=== PATIENT | female | born 1970 ===

== ENCOUNTER → 2020-05-19 13:26 | Outpatient (BNVA) | payer MEDICARE, MEDICAID, SELFPAY | PROVIDERS: PCP Family Medicine; Visit Provider Student in an Organized Health Care Education/Training Program | DX: M13.80 Other specified arthritis, unspecified site (principal); Z79.899 Other long term (current) drug therapy | CPT/HCPCS: Q3014 ==

== ENCOUNTER → 2020-08-30 13:04 | Outpatient (BNVA) | payer MEDICARE, MEDICAID, SELFPAY | PROVIDERS: PCP Family Medicine; Visit Provider Student in an Organized Health Care Education/Training Program | DX: M13.80 Other specified arthritis, unspecified site (principal); S61.259A Open bite of unspecified finger without damage to nail, initial encounter; W55.01XA Bitten by cat, initial encounter; Z79.899 Other long term (current) drug therapy | CPT/HCPCS: 99212 ==

== ENCOUNTER → 2020-10-18 10:16 | Outpatient (REF) | payer MEDICARE, MEDICAID, SELFPAY ==
--- NOTE | ~2020-10-18 | NM_ITS ---
Myocardial perfusion study Indication: Shortness of breath evaluate for myocardial ischemia Technique: The patient was brought in for a Lexiscan perfusion study on 10/18/2020. Patient performed low-level exercise and was injected 0.4 mg of Lexiscan intravenously. Within a minute of injection, 30 mCi of sestamibi was given intravenously. Images were obtained using the SPECT gamma camera interlaced with the gating device. Images were obtained in supine position. Resting perfusion study was performed on 10/24/2020. Patient was administered 30 mCi of sestamibi intravenously at rest. Images were then obtained in supine position. Images obtained with and without CT attenuation. Total DLP 122 mGy-cm. Images were processed with the software and compared side to side in short axis, horizontal long axis and vertical long axis views. Findings: The stress perfusion study showed both attenuated and not attenuated corrected images show normal uptake of radiotracer in all segments of LV myocardium. There is suggestion of left ventricle hypertrophy. The gated study shows normal LV systolic function with calculated LVEF of 60%. LV cavity is normal in size. The gated study shows normal systolic wall thickening and contraction of segments. Resting study shows no change in perfusion pattern compared to stress perfusion study. Gating at rest reveals normal systolic wall motion with ejection fraction at 70%. The findings are consistent with normal myocardial perfusion. NM/NM christy perf SPECT rest & str Impression: 1. Myocardial perfusion imaging study shows normal myocardial perfusion 2. Gated LVEF is 60% 3. Transient ischemic dilatation not present EKG is nondiagnostic for ischemia
--- NOTE | 2020-10-18 10:22 | CA_ITS ---
Acquisition Time: 2020-10-18 10:25:39 Total Exercise Time: 00:02:00 Test Indications: SHORTNESS OF BREATH Medications: Protocol: LEXISCAN Max HR: 116 BPM 69% of Pred: 168 BPM Max BP: 116/068 mmHG Max Work Load: 1.0 METS Pharmacological stress test using Lexiscan while sitting and kicking her feet. Pt tolerated well, denies any anginal sx. EKG with no arrhytyhmias, non-diagnostic for ischemia. Nuclear images to follow. Normotensive response to test. Test reviewed with Dr. Lindsey. Referred By: Dejuan Bernabe Overread By: Nina Louie NP
== END ==
LOC: HO.CARD 10:16
PROVIDERS: Visit Provider Internal Medicine Cardiovascular Disease
DX: R06.02 Shortness of breath (principal)
CPT/HCPCS: 78452; 93016; 93017; 93018; A9500; J0280; J2785

== ENCOUNTER 2020-10-24 10:59 | Outpatient (REF) | payer MEDICARE, MEDICAID, SELFPAY ==
[2020-10-24 12:12] LABS: MANUAL DIFF FLAG NO
[2020-10-24 12:23] LABS: Basophils Absolute Auto 0.1 X10*3/uL (0.0-0.2); Basophils Percent Auto 0.7 % (0-2); Eosinophils Absolute Auto 0.1 X10*3/uL (0.0-0.4); Eosinophils Percent Auto 1.2 % (0-4); Hematocrit 35.7 % (37-47); Hemoglobin 11.4 g/dl (12.0-16.0); Imm Gran Abs Auto 0.05 X10*3/uL (0.00-0.03); Imm Gran Pct Auto 0.5 % (0.0-0.4); Lymphocytes Absolute Auto 3.9 X10*3/uL (1.2-4.9); Lymphocytes Percent Auto 39.9 % (20-40); Mean Corpuscular HGB Conc 31.9 g/dl (31.0-35.0); Mean Corpuscular Hemoglobin 28.9 pg (27.0-33.0); Mean Corpuscular Volume 90.6 fL (80-98); Mean Platelet Volume 10.4 fL (9.4-12.3); Monocytes Absolute Auto 0.5 X10*3/uL (0.1-1.2); Monocytes Percent Auto 4.7 % (2-11); Neutrophils Absolute Auto 5.2 X10*3/uL (2.0-8.3); Platelet Count 315 X10*3/uL (160-400); Red Blood Count 3.94 X10*6/uL (4.20-5.50); Red Cell Distribution Width 16.6 % (11.0-16.0); White Blood Count 9.8 X10*3/uL (4.8-10.8)
[2020-10-24 12:44] LABS: Alanine Aminotransferase 14 U/L (0-31); Albumin Level 3.8 g/dL (3.5-5.0); Alkaline Phosphatase 180 U/L (39-117); Anion Gap 16 (12-20); Aspartate Amino Transferase 15 U/L (5-31); Bilirubin Total 0.5 mg/dL (0.0-1.0); Blood Urea Nitrogen 8 mg/dL (9-16); C Reactive Protein 2.75 mg/dL (< or = 0.50); Calcium 9.4 mg/dL (8.4-10.2); Carbon Dioxide 25 mmol/L (22-29); Chloride 103 mmol/L (96-108); Cholesterol 110 mg/dL; Estimated Glomerular Filt Rate > 60; Glucose Random 149 mg/dL (60-115); HDL Cholesterol 37 mg/dL; LDL Cholesterol Calculated 50 mg/dl; Potassium 4.6 mmol/L (3.3-5.1); Sodium 139 mmol/L (135-145); Total Protein 6.5 g/dL (6.5-8.0); Triglycerides 117 mg/dL
[2020-10-24 13:05] LABS: Reflex LDLD? No
[2020-10-24 13:38] LABS: Erythrocyte Sedimentation Rate 50 MM/HR (0-20)
== END 2020-10-24 11:00 | disposition home or self-care (01) ==
LOC: HO.LAB 10:59
PROVIDERS: PCP Family Medicine; Visit Provider Student in an Organized Health Care Education/Training Program
DX: M13.80 Other specified arthritis, unspecified site (principal)
CPT/HCPCS: 36415; 80053; 80061; 85025; 85652; 86140

== ENCOUNTER → 2020-11-01 12:45 | Outpatient (BNVA) | payer MEDICARE, MEDICAID, SELFPAY | PROVIDERS: PCP Family Medicine; Visit Provider Student in an Organized Health Care Education/Training Program | DX: M13.80 Other specified arthritis, unspecified site (principal); Z79.899 Other long term (current) drug therapy; Z87.891 Personal history of nicotine dependence | CPT/HCPCS: 99212 ==

== ENCOUNTER 2021-02-03 10:37 | Outpatient (REF) | payer MEDICARE, MEDICAID, SELFPAY ==
[2021-02-03 11:33] LABS: MANUAL DIFF FLAG NO
[2021-02-03 11:39] LABS: Basophils Absolute Auto 0.1 X10*3/uL (0.0-0.2); Basophils Percent Auto 0.5 % (0-2); Eosinophils Absolute Auto 0.1 X10*3/uL (0.0-0.4); Eosinophils Percent Auto 1.5 % (0-4); Hematocrit 38.6 % (37-47); Hemoglobin 12.4 g/dl (12.0-16.0); Imm Gran Abs Auto 0.04 X10*3/uL (0.00-0.03); Imm Gran Pct Auto 0.4 % (0.0-0.4); Lymphocytes Absolute Auto 4.1 X10*3/uL (1.2-4.9); Lymphocytes Percent Auto 43.7 % (20-40); Mean Corpuscular HGB Conc 32.1 g/dl (31.0-35.0); Mean Corpuscular Hemoglobin 28.1 pg (27.0-33.0); Mean Corpuscular Volume 87.5 fL (80-98); Mean Platelet Volume 10.6 fL (9.4-12.3); Monocytes Absolute Auto 0.5 X10*3/uL (0.1-1.2); Monocytes Percent Auto 5.8 % (2-11); Neutrophils Absolute Auto 4.5 X10*3/uL (2.0-8.3); Neutrophils Percent Auto 48.1 % (45-73); Platelet Count 204 X10*3/uL (160-400); Red Blood Count 4.41 X10*6/uL (4.20-5.50); Red Cell Distribution Width 16.8 % (11.0-16.0); White Blood Count 9.4 X10*3/uL (4.8-10.8)
[2021-02-03 11:55] LABS: Alanine Aminotransferase 16 U/L (0-31); Albumin Level 3.8 g/dL (3.5-5.0); Alkaline Phosphatase 156 U/L (39-117); Anion Gap 14 (12-20); Aspartate Amino Transferase 16 U/L (5-31); Bilirubin Total 0.4 mg/dL (0.0-1.0); Blood Urea Nitrogen 6 mg/dL (9-16); C Reactive Protein 0.17 mg/dL (< or = 0.50); Calcium 9.4 mg/dL (8.4-10.2); Carbon Dioxide 25 mmol/L (22-29); Chloride 105 mmol/L (96-108); Estimated Glomerular Filt Rate > 60; Glucose Random 240 mg/dL (60-115); Potassium 4.5 mmol/L (3.3-5.1); Sodium 139 mmol/L (135-145); Total Protein 6.2 g/dL (6.5-8.0)
[2021-02-03 12:19] LABS: Erythrocyte Sedimentation Rate 2 MM/HR (0-20)
== END 2021-02-03 10:38 | disposition home or self-care (01) ==
LOC: HO.LAB 10:37
PROVIDERS: PCP Family Medicine; Visit Provider Student in an Organized Health Care Education/Training Program
DX: M13.80 Other specified arthritis, unspecified site (principal)
CPT/HCPCS: 36415; 80053; 85025; 85652; 86140

== ENCOUNTER → 2021-05-01 09:59 | Outpatient (BNVA) | payer MEDICARE, MEDICAID, SELFPAY | PROVIDERS: PCP Family Medicine; Visit Provider Nurse Practitioner Family | DX: M13.80 Other specified arthritis, unspecified site (principal); M54.50 Low back pain, unspecified; Z79.899 Other long term (current) drug therapy | CPT/HCPCS: 99212 ==

== ENCOUNTER 2021-05-12 10:04 | Outpatient (REF) | payer MEDICARE, MEDICAID, SELFPAY ==
--- NOTE | ~2021-05-12 | MM_ITS ---
EXAMINATION: MM SCREENING DIGITAL BREAST TOMOSYNTHESIS, BILATERAL CLINICAL INFORMATION: Screening. Asymptomatic. The lifetime risk of breast cancer based on the Tyrer-Cuzick Model is 3%. COMPARISON: Mammography: 05/06/2018, 11/08/2016 TECHNIQUE: Digital breast tomosynthesis is performed in both the craniocaudal and mediolateral oblique views along with computer-aided detection (CAD). Synthesized 2D images are generated from the tomosynthesis. Additional bilateral MLO views are provided. FINDINGS: The breasts are almost entirely fatty (ACR BI-RADS breast composition Category a). There are no significant masses, abnormal calcifications, or other abnormalities. Small intramammary node again seen anterior 9:00 right breast as incidental finding. The axilla and skin contours are unremarkable. MM/MM tomosynthesis screening BI IMPRESSION: No mammographic evidence of malignancy. ASSESSMENT: BI-RADS 2: Benign RECOMMENDATION: Routine annual mammography screening. This patient's information was entered into a reminder system with a target due date for their next mammogram.
== END 2021-05-12 10:05 | disposition home or self-care (01) ==
LOC: HO.MAMMO 10:04
PROVIDERS: Visit Provider Internal Medicine
DX: Z12.31 Encounter for screening mammogram for malignant neoplasm of breast (principal)
CPT/HCPCS: 77063; 77067

== ENCOUNTER 2021-09-04 08:23 | Outpatient (REF) | payer MEDICARE, MEDICAID, SELFPAY ==
[2021-09-04 08:45] LABS: MANUAL DIFF FLAG NO
[2021-09-04 09:07] LABS: Basophils Absolute Auto 0.1 X10*3/uL (0.0-0.2); Basophils Percent Auto 0.5 % (0-2); Eosinophils Absolute Auto 0.2 X10*3/uL (0.0-0.4); Eosinophils Percent Auto 1.8 % (0-4); Imm Gran Abs Auto 0.04 X10*3/uL (0.00-0.03); Imm Gran Pct Auto 0.4 % (0.0-0.4); Lymphocytes Absolute Auto 4.1 X10*3/uL (1.2-4.9); Lymphocytes Percent Auto 40.4 % (20-40); Mean Corpuscular HGB Conc 32.4 g/dl (31.0-35.0); Mean Corpuscular Volume 83.5 fL (80.0-98.0); Mean Platelet Volume 9.2 fL (9.4-12.3); Monocytes Absolute Auto 0.3 X10*3/uL (0.1-1.2); Monocytes Percent Auto 2.5 % (2-11); Neutrophils Absolute Auto 5.5 x10*3/uL (2.0-8.3); Neutrophils Percent Auto 54.4 % (45-73); Platelet Count 409 X10*3/uL (160-400); Red Blood Count 4.07 X10*6/uL (4.20-5.50); Red Cell Distribution Width 17.7 % (11.0-16.0); White Blood Count 10.1 X10*3/uL (4.8-10.8)
[2021-09-04 09:31] LABS: Alanine Aminotransferase 14 U/L (0-31); Albumin Level 3.5 g/dL (3.5-5.0); Alkaline Phosphatase 170 U/L (39-117); Anion Gap 12 (12-20); Aspartate Amino Transferase 13 U/L (5-31); Bilirubin Total 0.3 mg/dL (0.0-1.0); Blood Urea Nitrogen 10 mg/dL (9-16); C Reactive Protein 7.36 mg/dL (< or = 0.50); Calcium 9.7 mg/dL (8.4-10.2); Carbon Dioxide 26 mmol/L (22-29); Chloride 103 mmol/L (96-108); Cholesterol 101 mg/dL; Estimated Glomerular Filt Rate > 60; Glucose Random 141 mg/dL (60-115); HDL Cholesterol 31 mg/dL; LDL Cholesterol Calculated 50 mg/dl; Potassium 4.4 mmol/L (3.3-5.1); Sodium 137 mmol/L (135-145); Total Protein 6.4 g/dL (6.5-8.0); Triglycerides 100 mg/dL
[2021-09-04 10:11] LABS: Erythrocyte Sedimentation Rate 70 MM/HR (0-20)
[2021-09-04 10:59] LABS: Reflex LDLD? No
== END 2021-09-04 08:24 | disposition home or self-care (01) ==
LOC: HO.LAB 08:23
PROVIDERS: PCP Family Medicine; Visit Provider Nurse Practitioner Family
DX: M13.80 Other specified arthritis, unspecified site (principal)
CPT/HCPCS: 36415; 80053; 80061; 85025; 85652; 86140

== ENCOUNTER 2021-09-06 08:36 | Outpatient (REF) | payer MEDICARE, MEDICAID, SELFPAY ==
[2021-09-06 08:51] LABS: MANUAL DIFF FLAG NO
[2021-09-06 09:13] LABS: Basophils Absolute Auto 0.1 X10*3/uL (0.0-0.2); Basophils Percent Auto 0.6 % (0-2); Eosinophils Absolute Auto 0.1 X10*3/uL (0.0-0.4); Eosinophils Percent Auto 1.2 % (0-4); Hematocrit 34.8 % (37.0-47.0); Hemoglobin 11.1 g/dl (12.0-16.0); Imm Gran Abs Auto 0.06 X10*3/uL (0.00-0.03); Imm Gran Pct Auto 0.6 % (0.0-0.4); Lymphocytes Absolute Auto 3.9 X10*3/uL (1.2-4.9); Lymphocytes Percent Auto 39.4 % (20-40); Mean Corpuscular HGB Conc 31.9 g/dl (31.0-35.0); Mean Corpuscular Hemoglobin 27.1 pg (27.0-33.0); Mean Corpuscular Volume 84.9 fL (80.0-98.0); Mean Platelet Volume 9.3 fL (9.4-12.3); Monocytes Absolute Auto 0.4 X10*3/uL (0.1-1.2); Monocytes Percent Auto 4.2 % (2-11); Neutrophils Absolute Auto 5.4 x10*3/uL (2.0-8.3); Platelet Count 385 X10*3/uL (160-400); Red Cell Distribution Width 18.4 % (11.0-16.0)
[2021-09-06 09:41] LABS: Alanine Aminotransferase 14 U/L (0-31); Albumin Level 3.7 g/dL (3.5-5.0); Alkaline Phosphatase 164 U/L (39-117); Anion Gap 15 (12-20); Aspartate Amino Transferase 10 U/L (5-31); Bilirubin Total 0.4 mg/dL (0.0-1.0); Blood Urea Nitrogen 9 mg/dL (9-16); C Reactive Protein 7.66 mg/dL (< or = 0.50); Calcium 9.9 mg/dL (8.4-10.2); Carbon Dioxide 24 mmol/L (22-29); Chloride 102 mmol/L (96-108); Cholesterol 111 mg/dL; Estimated Glomerular Filt Rate > 60; Glucose Random 249 mg/dL (60-115); HDL Cholesterol 33 mg/dL; LDL Cholesterol Calculated 55 mg/dl; Potassium 4.4 mmol/L (3.3-5.1); Sodium 137 mmol/L (135-145); Total Protein 6.7 g/dL (6.5-8.0); Triglycerides 116 mg/dL
[2021-09-06 09:50] LABS: Erythrocyte Sedimentation Rate 67 MM/HR (0-20)
[2021-09-06 10:35] LABS: Reflex LDLD? No
== END 2021-09-06 08:37 | disposition home or self-care (01) ==
LOC: HO.LAB 08:36
PROVIDERS: PCP Family Medicine; Visit Provider Nurse Practitioner Family
DX: M13.80 Other specified arthritis, unspecified site (principal); M54.50 Low back pain, unspecified; M25.562 Pain in left knee; R05.9 Cough, unspecified; Z79.899 Other long term (current) drug therapy
CPT/HCPCS: 36415; 80053; 80061; 85025; 85652; 86140; 99212

== ENCOUNTER 2021-09-21 09:17 | Outpatient (REF) | payer MEDICARE, MEDICAID, SELFPAY ==
--- NOTE | ~2021-09-21 | XR_ITS ---
EXAMINATION: XR KNEE, LEFT CLINICAL INFORMATION: Pain COMPARISON: Previous x-ray August 2016 TECHNIQUE: Four views of the left knee. FINDINGS: Bone alignment is normal. No fracture or dislocation is seen. The femoral tibial joints are normal. There are small osteophytes at the patellofemoral joint. There are osteophytes at the quadriceps tendon insertion and patellar tendon origins. There is no joint effusion. XR/XR knee LT 3V IMPRESSION: Mild degenerative changes.
--- NOTE | ~2021-09-21 | XR_ITS ---
EXAMINATION: XR CHEST CLINICAL INFORMATION: Chest 03/04/2018 COMPARISON: None TECHNIQUE: 2 views of the chest were obtained. FINDINGS: The lungs are well-expanded with increased bilateral parahilar markings with mild bronchial wall thickening. Heart size and pulmonary vascularity is normal. No gross bony abnormality seen. XR/XR chest 2V IMPRESSION: Increased bronchovascular markings with mild bronchial wall thickening suggestive of small airway disease. No acute pneumonic consolidation seen.
[2021-09-21 09:30] LABS: MANUAL DIFF FLAG NO
[2021-09-21 09:53] LABS: Basophils Absolute Auto 0.1 X10*3/uL (0.0-0.2); Basophils Percent Auto 0.4 % (0-2); Eosinophils Absolute Auto 0.2 X10*3/uL (0.0-0.4); Eosinophils Percent Auto 1.2 % (0-4); Hematocrit 35.1 % (37.0-47.0); Imm Gran Abs Auto 0.06 X10*3/uL (0.00-0.03); Imm Gran Pct Auto 0.5 % (0.0-0.4); Lymphocytes Absolute Auto 3.4 X10*3/uL (1.2-4.9); Lymphocytes Percent Auto 27.3 % (20-40); Mean Corpuscular HGB Conc 31.3 g/dl (31.0-35.0); Mean Corpuscular Hemoglobin 26.1 pg (27.0-33.0); Mean Corpuscular Volume 83.4 fL (80.0-98.0); Monocytes Absolute Auto 0.5 X10*3/uL (0.1-1.2); Monocytes Percent Auto 4.2 % (2-11); Neutrophils Absolute Auto 8.1 x10*3/uL (2.0-8.3); Neutrophils Percent Auto 66.4 % (45-73); Platelet Count 502 X10*3/uL (160-400); Red Blood Count 4.21 X10*6/uL (4.20-5.50); Red Cell Distribution Width 17.5 % (11.0-16.0); White Blood Count 12.3 X10*3/uL (4.8-10.8)
[2021-09-21 10:06] LABS: Appearance Urine CLEAR; Color Urine YELLOW; Glucose Urine UA NEG (NEG); Leukocyte Esterase Urine NEG (NEG); Nitrite Urine NEG (NEG); Urine Blood NEG (NEG); Urine Ketones NEG (NEG); Urine Protein NEG (NEG-TRACE)
[2021-09-21 10:31] LABS: Alanine Aminotransferase 9 U/L (0-31); Albumin Level 3.5 g/dL (3.5-5.0); Alkaline Phosphatase 162 U/L (39-117); Anion Gap 15 (12-20); Aspartate Amino Transferase 12 U/L (5-31); Blood Urea Nitrogen 7 mg/dL (9-16); C Reactive Protein 7.67 mg/dL (< or = 0.50); Calcium 9.7 mg/dL (8.4-10.2); Carbon Dioxide 24 mmol/L (22-29); Chloride 104 mmol/L (96-108); Estimated Glomerular Filt Rate > 60; Glucose Random 158 mg/dL (60-115); Potassium 4.2 mmol/L (3.3-5.1); Sodium 139 mmol/L (135-145); Total Protein 6.7 g/dL (6.5-8.0)
[2021-09-21 10:38] LABS: Bilirubin Total 0.3 mg/dL (0.0-1.0)
[2021-09-26 15:36] LABS: Alkaline Phosphatase Bone 25.6 mcg/L (5.6-29.0)
== END 2021-09-21 09:18 | disposition home or self-care (01) ==
LOC: HO.LAB 09:17
PROVIDERS: PCP Family Medicine; Visit Provider Nurse Practitioner Family
DX: M13.80 Other specified arthritis, unspecified site (principal); R74.8 Abnormal levels of other serum enzymes; R05.9 Cough, unspecified; M25.562 Pain in left knee; R79.82 Elevated C-reactive protein (CRP)
CPT/HCPCS: 36415; 71046; 73562; 80053; 81003; 84075; 85025; 86140

== ENCOUNTER 2021-10-09 10:12 | Outpatient (REF) | payer MEDICARE, MEDICAID, SELFPAY ==
[2021-10-09 13:00] LABS: Alanine Aminotransferase 19 U/L (0-31); Albumin Level 3.8 g/dL (3.5-5.0); Alkaline Phosphatase 169 U/L (39-117); Anion Gap 18 (12-20); Aspartate Amino Transferase 9 U/L (5-31); Bilirubin Total 0.4 mg/dL (0.0-1.0); Blood Urea Nitrogen 11 mg/dL (9-16); Calcium 9.7 mg/dL (8.4-10.2); Carbon Dioxide 25 mmol/L (22-29); Chloride 94 mmol/L (96-108); Estimated Glomerular Filt Rate 58; Potassium 5.4 mmol/L (3.3-5.1); Sodium 132 mmol/L (135-145); Total Protein 6.9 g/dL (6.5-8.0)
[2021-10-09 13:10] LABS: Glucose Random 527 mg/dL (60-115)
[2021-10-09 13:16] LABS: Erythrocyte Sedimentation Rate 31 MM/HR (0-20)
== END 2021-10-09 10:13 | disposition home or self-care (01) ==
LOC: HO.LAB 10:12
PROVIDERS: PCP Family Medicine; Visit Provider Nurse Practitioner Family
DX: M13.80 Other specified arthritis, unspecified site (principal)
CPT/HCPCS: 36415; 80053; 82784; 83540; 83615; 85025; 85652; 86140; 86334

== ENCOUNTER → 2021-11-06 11:04 | Outpatient (BNVA) | payer MEDICARE, MEDICAID, SELFPAY | PROVIDERS: PCP Family Medicine; Visit Provider Nurse Practitioner Family | DX: M06.00 Rheumatoid arthritis without rheumatoid factor, unspecified site (principal); M54.50 Low back pain, unspecified; M25.562 Pain in left knee; Z79.899 Other long term (current) drug therapy | CPT/HCPCS: 99212 ==

== ENCOUNTER 2022-01-05 13:04 | Outpatient (REF) | payer MEDICARE, MEDICAID, SELFPAY ==
--- NOTE | ~2022-01-05 | XR_ITS ---
EXAMINATION: XR RIBS, RIGHT. Chest x-ray. CLINICAL INFORMATION: Pleurodynia COMPARISON: None TECHNIQUE: 3 views of the right ribs were obtained. Chest one view. FINDINGS: Chest: Lungs are clear. No consolidation, pneumothorax, or pleural effusion. The cardiomediastinal silhouette and pulmonary vasculature are normal. Osseous structures are unremarkable. There is no visible fracture involving the right ribs especially where marker has been placed along the right lower ribs. No fracture visualized. XR/XR ribs RT min 3V w CXR1V IMPRESSION: Unremarkable chest and right rib exam.
[2022-01-05 13:23] LABS: MANUAL DIFF FLAG NO
[2022-01-05 13:48] LABS: Basophils Percent Auto 0.2 % (0-2); Eosinophils Percent Auto 0.1 % (0-4); Hematocrit 36.2 % (37.0-47.0); Hemoglobin 11.4 g/dl (12.0-16.0); Imm Gran Abs Auto 0.12 X10*3/uL (0.00-0.03); Imm Gran Pct Auto 0.9 % (0.0-0.4); Lymphocytes Absolute Auto 2.2 X10*3/uL (1.2-4.9); Lymphocytes Percent Auto 16.2 % (20-40); Mean Corpuscular HGB Conc 31.5 g/dl (31.0-35.0); Mean Corpuscular Volume 85.6 fL (80.0-98.0); Mean Platelet Volume 10.3 fL (9.4-12.3); Monocytes Absolute Auto 0.1 X10*3/uL (0.1-1.2); Neutrophils Absolute Auto 11.2 x10*3/uL (2.0-8.3); Neutrophils Percent Auto 81.6 % (45-73); Platelet Count 294 X10*3/uL (160-400); Red Blood Count 4.23 X10*6/uL (4.20-5.50); Red Cell Distribution Width 16.7 % (11.0-16.0); White Blood Count 13.7 X10*3/uL (4.8-10.8)
[2022-01-05 14:15] LABS: C Reactive Protein 6.15 mg/dL (< or = 0.50); Rheumatoid Factor < 15.0 IU/mL (<15.0)
[2022-01-05 14:33] LABS: Erythrocyte Sedimentation Rate 44 MM/HR (0-20)
[2022-01-05 15:44] LABS: Alanine Aminotransferase 12 U/L (0-31); Aspartate Amino Transferase 9 U/L (5-31); Estimated Glomerular Filt Rate 53
== END 2022-01-05 13:05 | disposition home or self-care (01) ==
LOC: HO.LAB 13:04
PROVIDERS: PCP Family Medicine; Visit Provider Nurse Practitioner Family
DX: R07.81 Pleurodynia (principal); M13.80 Other specified arthritis, unspecified site; M54.50 Low back pain, unspecified; M25.562 Pain in left knee
CPT/HCPCS: 36415; 71101; 82565; 84450; 84460; 85025; 85652; 86140; 86431; 99212

== ENCOUNTER 2022-01-29 10:58 | Outpatient (REF) | payer MEDICARE, MEDICAID, SELFPAY ==
--- NOTE | ~2022-01-29 | XR_ITS ---
EXAMINATION: XR RIBS, LEFT CLINICAL INFORMATION: Pleurodynia. COMPARISON: 09/21/2021 TECHNIQUE: 3 views of the left ribs were obtained. FINDINGS: Lungs are clear. No consolidation, pneumothorax, or pleural effusion. The cardiomediastinal silhouette and pulmonary vasculature are normal. There is irregularity of the distal aspect of the left seventh rib consistent with a subtle fracture. This is age-indeterminate. Surgical clips in the right epigastrium. XR/XR ribs LT min 3V w CXR1V IMPRESSION: Irregularity of the distal aspect of the left seventh rib could reflect a subtle age indeterminate fracture. No pleural effusion or pneumothorax seen.
== END 2022-01-29 10:59 | disposition home or self-care (01) ==
LOC: HO.XRAY 10:58
PROVIDERS: PCP Family Medicine; Visit Provider Family Medicine
DX: R07.81 Pleurodynia (principal)
CPT/HCPCS: 71101

== ENCOUNTER → 2022-02-02 09:51 | Outpatient (BNVA) | payer MEDICARE, MEDICAID, SELFPAY | PROVIDERS: PCP Family Medicine; Visit Provider Nurse Practitioner Family | DX: M13.80 Other specified arthritis, unspecified site (principal); M54.50 Low back pain, unspecified; M25.562 Pain in left knee; R07.81 Pleurodynia; S22.32XA Fracture of one rib, left side, initial encounter for closed fracture | CPT/HCPCS: 99212 ==

== ENCOUNTER 2022-02-09 09:33 | Outpatient (REF) | payer MEDICARE, MEDICAID, SELFPAY ==
--- NOTE | ~2022-02-09 | CT_ITS ---
EXAMINATION: CT HEAD WITHOUT CONTRAST CLINICAL INFORMATION: Dizziness and giddiness. COMPARISON: None TECHNIQUE: Contiguous axial imaging was performed from the skull base to vertex without intravenous administration of contrast. This CT examination was performed using dose optimization techniques as appropriate, variously including the following: *Automated exposure control *Adjustment of mA and/or kV according to patient size (this includes techniques or standardized protocols for targeted exams where dose is matched to indication/reason for exam; i.e. extremities or head) *Use of iterative reconstruction technique DLP: 741 mGy-cm FINDINGS: There is no acute intra-axial or extra-axial bleed, masses or midline shift. There is no acute infarction in evolution. There is no edema. The solorzano to white matter differentiation is maintained normal. Bone windows reveal no calvarial abnormality. Bilateral paranasal sinuses are well-aerated and appear unremarkable. CT/CT head/brain wo IV con IMPRESSION: No acute intracranial process seen.
== END 2022-02-09 09:34 | disposition home or self-care (01) ==
LOC: HO.CT 09:33
PROVIDERS: PCP Family Medicine; Visit Provider Family Medicine
DX: R42 Dizziness and giddiness (principal)
CPT/HCPCS: 70450

== ENCOUNTER → 2022-02-23 09:12 | Outpatient (REF) | payer MEDICARE, MEDICAID, SELFPAY ==
--- NOTE | 2022-02-23 09:16 | CA_ITS ---
Transthoracic Echocardiogram Patient (Last, First, Middle): Ramona Suarez, Gender: Female Date of : 1970 Age: 52 Procedure Date: 02/23/2022 Procedure Type: Transthoracic Echocardiogram Location: OP Height: 160.02 cm Weight: 92.53 kg BSA: 1.95 m2 Heart Rate: bpm BP: 124 / 80 mmHg Exhibit Specialist: Referring MD: Isabel Lewis DO Symptoms: DIZZINESS,GIDDINESS Study Quality: Adequate ECG Rhythm: Sinus Conclusions: - The left ventricular systolic function is normal. The calculated ejection fraction is 69% by biplane method. - No obvious valvular pathology seen on this study. Findings Left Ventricle Normal left ventricular cavity size. There is mildly increased left ventricular wall thickness. The left ventricular systolic function is normal. The calculated ejection fraction is 69% by biplane method. There is no evidence of regional wall motion abnormalities. Diastolic function is normal for age. Right Ventricle Normal right ventricular cavity size and systolic function. Atria Both atria are normal in size. Aortic Valve There is a normal trileaflet aortic valve. There is no aortic valve stenosis. There is no aortic valve regurgitation. Mitral Valve The mitral valve appears normal. There is no mitral valve regurgitation. There is no mitral valve stenosis. Pulmonic Valve The pulmonic valve is likely normal. Tricuspid Valve Normal tricuspid valve structure. There is trace tricuspid valve regurgitation. There is no evidence of pulmonary hypertension. Great Vessels The aortic annulus, sinuses of valsalva, and asc aorta are normal in size. Venous The inferior vena cava is normal in size and collapses greater than 50% with inspiration. Pericardium/Pleural There is a trivial pericardial effusion. Prior Study Comparison No prior study available for comparison. Recommendations, Care & Conclusions No obvious valvular pathology seen on this study. Measurements 2D Linear Measurements IVSd: 1.12 0.6-0.9/0.6-1.0 cm LVIDd: 4.19 3.9-5.3/4.2-5.9 cm LVIDd Index: 2.15 2.4-3.2/2.2-3.1 cm/m2 LVIDs: 2.93 2.0-3.6 cm LVPWd: 1.07 0.7-1.1 cm Ao Root: 2.70 2.1-3.5 cm LA Diam: 3.10 2.7-3.8/3.0-4.0 cm LAIDs Index: 1.59 1.5-2.3 cm/m2 LV Mass: 193.58 67-162/88-224 g LV Mass Index: 99.27 43-95/49-115 g/m2 LVOT Diam: 2.00 3.0+(-)1.3 cm 2D Systolic Function EF 4C: 65.80 >55% EF 2C: 71.40 >55% EF BiP: 68.90 >55% Mitral Valve MV Pk E: 0.63 MV PK A: 0.95 MV Decel Time: 153.00 E/A: 0.70 E'Lateral: 7.29 E'Medial: 4.79 E/E' Med: 13.10 E/E' Lat: 8.60 PHT: 45.00 MVA PHT: 4.89 Decel Harney: 4.10 Aortic Valve AoV Pk Gokul: 1.46 AoV Mn Gokul: 1.00 AoV VTI: 0.31 AoV Pk Grad: 9.00 Aov Mn Grad: 5.00 GRIS Cont.VTI: 2.73 LVOT LVOT Pk Gokul: 1.26 LVOT Mn Gokul: 0.83 LVOT VTI: 0.27 LVOT Pk Grad: 6.00 LVOT Mn Grad: 3.00 LVOT Diam: 2.00 LVOT Area: 3.14 Diastolic Function MV Pk E: 0.63 MV Pk A: 0.95 E/A: 0.70 E'Medial: 4.79 E/E' Med: 13.10 E' Laterial: 7.29 E/E' Lat: 8.60 Right Ventricle TAPSE (mm): 23.00 TVS' Gokul: 11.00 Tricuspid Valve TR Pk Gokul: 1.65 TR Pk Grad: 11.00 RA Press: 3.00 RVSP: 14.00 Great Vessels Aorta Ao Root-2D: 2.70 2.0-3.7 cm Ao Asc: 2.80 2.1-3.4 cm Pulmonary Valve PV Pk Gokul: 1.03 Peak PV Grad: 4.00 Updated in Other Vendor System with Status of Final Sam Pat MD electronically signed on 02/24/2022 11:04:45 AM with status of Final
== END ==
LOC: HO.CARD 09:12
PROVIDERS: PCP Family Medicine; Visit Provider Family Medicine
DX: R42 Dizziness and giddiness (principal)
CPT/HCPCS: 93306

== ENCOUNTER 2022-03-20 11:00 | Outpatient (REF) | payer MEDICARE, MEDICAID, SELFPAY ==
--- NOTE | ~2022-03-20 | XR_ITS ---
EXAMINATION: XR HAND, BILATERAL CLINICAL INFORMATION: Chronic bilateral hand pain COMPARISON: 08/08/2016 TECHNIQUE: 3 views of each hand FINDINGS: Right hand: No acute abnormality. No periarticular osteopenia, erosions, or suspicious soft tissue calcifications. No significant degenerative findings. No change. Left hand: No acute abnormality. No periarticular osteopenia, erosions, or suspicious soft tissue calcifications. No significant degenerative findings. No change. XR/XR hand LT min 3V IMPRESSION: Unremarkable radiographs of both hands. No change.
--- NOTE | ~2022-03-20 | XR_ITS ---
EXAMINATION: XR FOOT, BILATERAL CLINICAL INFORMATION: Bilateral foot pain COMPARISON: None TECHNIQUE: 3 views of each foot FINDINGS: Right foot: Large heel spur. No fracture or malalignment. Mild degenerative changes of the Lisfranc joints. No erosions. Left foot: Large heel spur. No fracture or malalignment. Mild degenerative changes of the Lisfranc joints. No erosions. XR/XR foot RT 2V IMPRESSION: RIGHT FOOT: Large heel spur. Mild degenerative findings. LEFT FOOT: Large heel spur. Mild degenerative findings.
--- NOTE | ~2022-03-20 | XR_ITS ---
EXAMINATION: XR HAND, BILATERAL CLINICAL INFORMATION: Chronic bilateral hand pain COMPARISON: 08/08/2016 TECHNIQUE: 3 views of each hand FINDINGS: Right hand: No acute abnormality. No periarticular osteopenia, erosions, or suspicious soft tissue calcifications. No significant degenerative findings. No change. Left hand: No acute abnormality. No periarticular osteopenia, erosions, or suspicious soft tissue calcifications. No significant degenerative findings. No change. XR/XR hand RT min 3V IMPRESSION: Unremarkable radiographs of both hands. No change.
--- NOTE | ~2022-03-20 | XR_ITS ---
EXAMINATION: XR FOOT, BILATERAL CLINICAL INFORMATION: Bilateral foot pain COMPARISON: None TECHNIQUE: 3 views of each foot FINDINGS: Right foot: Large heel spur. No fracture or malalignment. Mild degenerative changes of the Lisfranc joints. No erosions. Left foot: Large heel spur. No fracture or malalignment. Mild degenerative changes of the Lisfranc joints. No erosions. XR/XR foot LT 2V IMPRESSION: RIGHT FOOT: Large heel spur. Mild degenerative findings. LEFT FOOT: Large heel spur. Mild degenerative findings.
== END 2022-03-20 11:01 | disposition home or self-care (01) ==
LOC: HO.XRAY 11:00
PROVIDERS: PCP Family Medicine; Visit Provider Nurse Practitioner Family
DX: M79.671 Pain in right foot (principal); M79.672 Pain in left foot; M79.641 Pain in right hand; M79.642 Pain in left hand; M13.80 Other specified arthritis, unspecified site
CPT/HCPCS: 73130; 73620

== ENCOUNTER 2022-03-26 09:41 | Outpatient (REF) | payer MEDICARE, MEDICAID, SELFPAY ==
--- NOTE | ~2022-03-26 | US_ITS ---
EXAMINATION: US EXTRACRANIAL CAROTID DUPLEX, BILATERAL CLINICAL INFORMATION: Dizziness and giddiness COMPARISON: None TECHNIQUE: Real-time ultrasound and Doppler techniques (integrating B-mode 2-D vascular images, Doppler spectral analysis and color-flow Doppler imaging) were utilized to interrogate the extracranial carotid arteries, the vertebral arteries and proximal subclavian arteries bilaterally. The degree of stenosis is determined by criteria similar to NASCET. FINDINGS: Right Side: 1. There is no significant atherosclerotic plaque seen in the bifurcation/proximal ICA region. 2. The common carotid artery PSV proximally is 121 cm/s and distally 81.4 cm/s. 3. The proximal internal carotid artery velocities are 91.7 cm/s systolic and 20.4 cm/s diastolic. 4. The proximal external carotid artery PSV is 140 cm/s. 5. The vertebral artery shows antegrade flow. 6. The subclavian artery waveforms are normal. Left Side: 1. There is minimal atherosclerotic plaque seen in the bifurcation/proximal ICA region. 2. The common carotid artery PSV proximally is 87 cm/s and distally 76.3 cm/s. 3. The proximal internal carotid artery velocities are 68.8 cm/s systolic and 17.7 cm/s diastolic. 4. The proximal external carotid artery PSV is 76.2 cm/s. 5. The vertebral artery shows antegrade flow. 6. The subclavian artery waveforms are normal. US/US carotid duplex BI IMPRESSION: 1. RIGHT: Normal right internal carotid artery without atherosclerotic plaque or hemodynamically significant stenosis. 2. LEFT: Minimal, non-hemodynamically significant stenosis of the proximal left internal carotid artery corresponding to a 0-49% stenosis by velocity criteria.
== END 2022-03-26 09:42 | disposition home or self-care (01) ==
LOC: HO.US 09:41
PROVIDERS: Visit Provider Family Medicine
DX: R42 Dizziness and giddiness (principal)
CPT/HCPCS: 93880

== ENCOUNTER 2022-07-10 09:04 | Outpatient (REF) | payer MEDICARE, MEDICAID, SELFPAY ==
[2022-07-10 09:24] LABS: MANUAL DIFF FLAG NO
[2022-07-10 10:09] LABS: Basophils Absolute Auto 0.1 X10*3/uL (0.0-0.2); Basophils Percent Auto 0.6 % (0-2); Eosinophils Absolute Auto 0.2 X10*3/uL (0.0-0.4); Eosinophils Percent Auto 1.9 % (0-4); Hematocrit 36.7 % (37.0-47.0); Hemoglobin 11.8 g/dl (12.0-16.0); Imm Gran Abs Auto 0.04 X10*3/uL (0.00-0.03); Imm Gran Pct Auto 0.4 % (0.0-0.4); Lymphocytes Absolute Auto 4.3 X10*3/uL (1.2-4.9); Lymphocytes Percent Auto 39.3 % (20-40); Mean Corpuscular HGB Conc 32.2 g/dl (31.0-35.0); Mean Corpuscular Hemoglobin 25.4 pg (27.0-33.0); Mean Corpuscular Volume 78.9 fL (80.0-98.0); Mean Platelet Volume 9.2 fL (9.4-12.3); Monocytes Absolute Auto 0.5 X10*3/uL (0.1-1.2); Monocytes Percent Auto 4.2 % (2-11); Neutrophils Absolute Auto 5.9 x10*3/uL (2.0-8.3); Neutrophils Percent Auto 53.6 % (45-73); Platelet Count 401 X10*3/uL (160-400); Red Blood Count 4.65 X10*6/uL (4.20-5.50); Red Cell Distribution Width 16.3 % (11.0-16.0); White Blood Count 10.9 X10*3/uL (4.8-10.8)
[2022-07-10 10:35] LABS: Alanine Aminotransferase 8 U/L (0-31); Aspartate Amino Transferase 10 U/L (5-31); Estimated Glomerular Filt Rate > 60
== END 2022-07-10 09:05 | disposition home or self-care (01) ==
LOC: HO.LAB 09:04
PROVIDERS: PCP Family Medicine; Visit Provider Nurse Practitioner Family
DX: M13.80 Other specified arthritis, unspecified site (principal); Z79.899 Other long term (current) drug therapy
CPT/HCPCS: 36415; 82565; 84450; 84460; 85025

== ENCOUNTER 2022-07-20 08:22 | Outpatient (REF) | payer MEDICARE, MEDICAID, SELFPAY ==
--- NOTE | ~2022-07-20 | XR_ITS ---
EXAMINATION: XR chest 2V CLINICAL INFORMATION: Reason for Exam COUGH COMPARISON: Chest radiograph 01/29/2022 TECHNIQUE: 2 views of the chest XR/XR chest 2V FINDINGS/IMPRESSION: Clear lungs. No pneumothorax. No pleural effusion. Unchanged cardiomediastinal silhouette.
[2022-07-20 09:23] LABS: B Type Natriuretic Peptide 19 pg/mL (<100)
[2022-07-20 09:31] LABS: Blood Urea Nitrogen 10 mg/dL (9-16); Calcium 9.5 mg/dL (8.4-10.2); Estimated Glomerular Filt Rate 58
[2022-07-20 09:36] LABS: Anion Gap 24 (12-20); Carbon Dioxide 24 mmol/L (22-29); Chloride 92 mmol/L (96-108); Potassium 4.5 mmol/L (3.3-5.1); Sodium 135 mmol/L (135-145)
[2022-07-20 10:03] LABS: Glucose Random 496 mg/dL (60-115)
== END 2022-07-20 08:23 | disposition home or self-care (01) ==
LOC: HO.XRAY 08:22
PROVIDERS: Absent Provider Internal Medicine Cardiovascular Disease; PCP Family Medicine; Visit Provider Family Medicine
DX: R05.9 Cough, unspecified (principal); R06.02 Shortness of breath
CPT/HCPCS: 36415; 71046; 80048; 83880

== ENCOUNTER 2022-07-27 10:22 | Emergency (ER) | payer MEDICARE, MEDICAID, SELFPAY ==
--- NOTE | ~2022-07-27 | XR_ITS ---
EXAMINATION: XR CHEST CLINICAL INFORMATION: Shortness breath. Cough. COMPARISON: 07/20/2022 TECHNIQUE: Frontal view of the chest was obtained. FINDINGS: Normal symmetric lung volumes. No parenchymal consolidation. Diffuse bronchial wall thickening. No pleural effusion. No pneumothorax. Cardiomediastinal silhouette and pulmonary vascularity are within normal limits. No acute osseous abnormalities. XR/XR chest 1V IMPRESSION: Diffuse bronchial thickening as can be seen with bronchitis and asthma. No discrete consolidation.
[2022-07-27 10:30] VITALS: BP 120/66; PULSE 110; RESP 18; TEMP 37.3; O2SAT 96; BMI 35.4
[2022-07-27 11:00] LABS: MANUAL DIFF FLAG NO
[2022-07-27 11:01] LABS: Basophils Absolute Auto 0.1 X10*3/uL (0.0-0.2); Basophils Percent Auto 0.6 % (0-2); Eosinophils Absolute Auto 0.1 X10*3/uL (0.0-0.4); Eosinophils Percent Auto 1.3 % (0-4); Hematocrit 38.5 % (37.0-47.0); Hemoglobin 12.4 g/dl (12.0-16.0); Imm Gran Abs Auto 0.02 X10*3/uL (0.00-0.03); Imm Gran Pct Auto 0.2 % (0.0-0.4); Lymphocytes Absolute Auto 3.9 X10*3/uL (1.2-4.9); Lymphocytes Percent Auto 40.6 % (20-40); Mean Corpuscular HGB Conc 32.2 g/dl (31.0-35.0); Mean Corpuscular Hemoglobin 25.6 pg (27.0-33.0); Mean Corpuscular Volume 79.5 fL (80.0-98.0); Monocytes Absolute Auto 0.6 X10*3/uL (0.1-1.2); Monocytes Percent Auto 6.3 % (2-11); Neutrophils Absolute Auto 4.9 x10*3/uL (2.0-8.3); Platelet Count 334 X10*3/uL (160-400); Red Blood Count 4.84 X10*6/uL (4.20-5.50); Red Cell Distribution Width 16.3 % (11.0-16.0); White Blood Count 9.6 X10*3/uL (4.8-10.8)
[2022-07-27 11:28] LABS: Alanine Aminotransferase 7 U/L (0-31); Albumin Level 3.4 g/dL (3.5-5.0); Alkaline Phosphatase 137 U/L (39-117); Anion Gap 15 (12-20); Aspartate Amino Transferase 4 U/L (5-31); Bilirubin Total 0.3 mg/dL (0.0-1.0); Blood Urea Nitrogen 6 mg/dL (9-16); Calcium 9.2 mg/dL (8.4-10.2); Carbon Dioxide 29 mmol/L (22-29); Chloride 93 mmol/L (96-108); Creatinine Clr Calc Pharmacy 72.3; Estimated Glomerular Filt Rate > 60; Potassium 4.2 mmol/L (3.3-5.1); Sodium 133 mmol/L (135-145); Total Protein 6.3 g/dL (6.5-8.0)
[2022-07-27 11:30] LABS: Glucose Fasting 572 mg/dL (60-99)
[2022-07-27] MEDS: 0.9 % Sodium Chloride 1,000 ML 999 ML IV (11:36)
[2022-07-27] MEDS: Insulin Lispro 100 UNIT/ML 3 ML VIAL 15 UNIT SUBCUT (11:36)
[2022-07-27 11:44] LABS: Influenza A PCR NEGATIVE (Negative); Influenza B PCR NEGATIVE (Negative); Resp Syncy Virus RNA Qual PCR NEGATIVE (Negative); SARS COV2 PCR INHOUSE NEGATIVE (Negative)
[2022-07-27 12:08] LABS: Glucose, Whole Blood 502 mg/dL (60-115)
--- NOTE | 2022-07-27 12:29 | ED.GENADULT ---
HPI - General Adult General Chief complaint: General Medical Stated complaint: high sugar level Time Seen by Provider: 07/27/22 11:13 Source: patient Mode of arrival: ambulatory Limitations: no limitations History of Present Illness HPI narrative: 52-year-old female with history of type 2 diabetes on insulin and COPD, active smoker presents to the ER for evaluation of elevated blood sugar at home and polyuria for the last couple of days. Patient was recently diagnosed prednisone for a cough. Her last dose was yesterday. She has been compliant with her insulin but her sugars have been very elevated at home. She denies any nausea, vomiting, diarrhea, abdominal pain. No fever or chills. Her cough persists. She is not short of breath or having chest pain. She denies any dysuria but admits to the increased frequency with her elevated blood sugars. Patient also reports itching in her genital area. No discharge. MD complaint: Hyperglycemia and polyuria Onset (ago): day(s) Severity: moderate Relieving factors: none Exacerbating factors: none Associated symptoms: denies other symptoms Treatments prior to arrival: none Related Data Home Medications Medication Instructions Recorded Confirmed atorvastatin 10 mg tablet (Lipitor) 10 mg PO DAILY 05/19/20 01/05/22 diclofenac sodium 1 % topical gel 2 g topical QID 05/19/20 01/05/22 (Voltaren) divalproex 250 mg tablet,delayed 250 mg PO BID 05/19/20 01/05/22 release gabapentin 800 mg tablet 800 mg PO TID 05/19/20 01/05/22 lorazepam 0.5 mg tablet 0.5 mg PO DAILY PRN Anxiety 05/19/20 01/05/22 metformin 500 mg tablet 500 mg PO BID 05/19/20 01/05/22 omeprazole 40 mg capsule,delayed 40 mg PO DAILY 05/19/20 01/05/22 release quetiapine 50 mg tablet,extended 100 mg PO BEDTIME 05/19/20 01/05/22 release 24 hr riboflavin (vitamin B2) 100 mg 100 mg PO QID 05/19/20 01/05/22 tablet tizanidine 2 mg capsule 2 mg PO BEDTIME 05/19/20 01/05/22 meclizine 25 mg chewable tablet 25 mg PO TID 08/30/20 01/05/22 duloxetine 60 mg capsule,delayed 60 mg PO BID 05/01/21 01/05/22 release baclofen 5 mg tablet 5 mg PO BID 09/06/21 01/05/22 amitriptyline 10 mg tablet 2 tab PO BEDTIME 10/09/21 01/05/22 calcium carbonate 600 mg-vitamin 1 tab PO BID 10/09/21 01/05/22 D3 10 mcg (400 unit) tablet glipizide 5 mg tablet 2 tab PO BID 10/09/21 01/05/22 oxybutynin chloride 5 mg 1 tab PO QPM 10/09/21 01/05/22 tablet,extended release 24 hr umeclidinium 62.5 mcg/actuation 1 puff inhalation DAILY 10/09/21 01/05/22 blister powder for inhalation (Incruse Ellipta) insulin glargine 100 unit/mL (3 10 unit subcut QAM 11/06/21 01/05/22 mL) subcutaneous pen (Basaglar KwikPen U-100 Insulin) pen needle, diabetic 32 gauge x #50 ea 11/06/21 01/05/22 (UltiCare Pen Needle) acetaminophen 650 mg 650 mg PO Q6H PRN fever 02/02/22 tablet,extended release gabapentin 300 mg capsule mg PO 02/02/22 omeprazole 20 mg capsule,delayed 20 mg PO BID 02/02/22 release oxycodone 5 mg tablet 5 mg PO BID PRN 02/02/22 quetiapine 50 mg tablet mg PO 02/02/22 Previous Rx's Medication Instructions Recorded nystatin 100,000 unit/gram topical 1 appl topical BID #30 grams 07/27/22 ointment Allergies Allergy/AdvReac Type Severity Reaction Status Date / Time sumatriptan [From IMITREX] Allergy Severe SYNCOPE Verified 07/27/22 10:29 Penicillins [PENICILLINS] Allergy Intermediate SHORTNESS Verified 07/27/22 10:29 OF BREATH penicillin V Allergy Unknown swelling, Verified 07/27/22 10:29 rash, pruritis topiramate [From TOPAMAX] AdvReac Severe OVERDOSED Verified 07/27/22 10:29 Review of Systems Review of Systems: Yes all other systems are reviewed and are negative PMFSH Past Medical History Medical History Asthma Bipolar disorder CAP (community acquired pneumonia) Chronic mixed headache syndrome Diabetes Fibromyalgia Major depressive disorder Obstructive sleep apnea PTSD (post-traumatic stress disorder) Seronegative arthritis Surgical History H/O shoulder surgery Hx of cholecystectomy Hx of colonoscopy Family History Family History Mother Arthritis Asthma Diabetes Social History Social History Alcohol intake: former Patient Tobacco Use Status: Current everyday Tobacco user Cigarettes Per Day: 15 Years Smoked: 45 Advance Directives: No Advance Directives Information Provided: Yes Physical Exam ED Vital Signs: Vital Signs - 24 hr 07/27/22 10:30 Temperature 99.2 F Pulse Rate 110 H Respiratory Rate 18 Blood Pressure 120/66 Pulse Oximetry 96 Oxygen Delivery Method Room Air BMI result Body Mass Index 35.4 Appearance: Alert. Oriented X3. No acute distress. Eyes: Pupils equal, round and reactive to light. ENT: Pharynx normal. Neck: Normal inspection. Neck supple. CVS: Normal heart rate and rhythm. Pulses normal. Respiratory: No respiratory distress. Breath sounds coarse throughout without any wheezing or rhonchi. Coarse cough. speaking in complete sentences. Abdomen: Soft and nontender. +BS x4 : external genitalia with mild generalized erythemia and excoriations, no bleeding, ulcerations, or vaginal discharge at the introitus Skin: Skin warm and dry. Normal skin color. Normal skin turgor. No rashes. Extremities: No lower extremity edema. Neuro: Oriented X 3. No motor deficit. No sensory deficit. Course Course Course Narrative: 52-year-old female presenting with hyperglycemia and polyuria in the setting of recent steroid use. She is medication compliant with her insulin. Doubt DKA. Glucose is 572 on chemistry. Normal anion gap and bicarbonate. IV fluids and subcu insulin ordered. Will reassess. Will check chest x-ray to rule out pneumonia given ongoing cough. She has no leukocytosis Reevaluation(s) Reevaluation #1: Repeat glucose is 239 after 2 L IV fluid in 15 units of subcu Humalog. Patient like to go home. Urinalysis has not been collected however she declines any symptoms of acute infection. Her increased urination due to hyperglycemia. Comfortable discharge home with plan to continue her previously prescribed insulin dosing and follow up with her PCP. She is now off prednisone. Stable for DC Medications Administered Discontinued Medications Generic Name Dose Route Start Last Admin Trade Name Prabha PRN Reason Stop Dose Admin Sodium Chloride 1,000 mls @ 999 mls/hr 07/27/22 11:15 07/27/22 11:36 Ns IV 07/27/22 12:15 999 mls/hr .Q1H1M ADILENE Administration Insulin Human Lispro 15 unit 07/27/22 11:30 07/27/22 11:36 Insulin Lispro 100 Unit/Ml 3 Ml Vial SUBCUT 07/27/22 11:31 15 unit ONCE ONE Administration Medical Decision Making Medical Decision Making [facility] Narrative: 52-year-old female presenting with hyperglycemia and polyuria in the setting of steroid use. Labs are reassuring against DKA. Improved with fluids and insulin. Differential Diagnosis Differential Diagnoses: The differential diagnosis associated with the presentation includes Acute steroid induced hyperglycemia, medication noncompliance, poorly controlled diabetes, less likely DKA or HHS. Less likely acute UTI or pneumonia. Lab Data [facility] Lab Attestation statement: I reviewed the patient's lab results. Hyperglycemia without metabolic acidosis 07/27/22 10:53 07/27/22 10:53 Labs: Lab Results 07/27/22 07/27/22 07/27/22 Range/Units 10:53 10:53 10:53 WBC 9.6 (4.8-10.8) X10*3/uL RBC 4.84 (4.20-5.50) X10*6/uL Hgb 12.4 (12.0-16.0) g/dl Hct 38.5 (37.0-47.0) % MCV 79.5 L (80.0-98.0) fL MCH 25.6 L (27.0-33.0) pg MCHC 32.2 (31.0-35.0) g/dl RDW 16.3 H (11.0-16.0) % Plt Count 334 (160-400) X10*3/uL MPV 10.0 (9.4-12.3) fL Immature Gran % (Auto) 0.2 (0.0-0.4) % Neut % (Auto) 51.0 (45-73) % Lymph % (Auto) 40.6 H (20-40) % [place] % (Auto) 6.3 (2-11) % Eos % (Auto) 1.3 (0-4) % Baso % (Auto) 0.6 (0-2) % Lymph # (Auto) 3.9 (1.2-4.9) X10*3/uL [place] # (Auto) 0.6 (0.1-1.2) X10*3/uL Eos # (Auto) 0.1 (0.0-0.4) X10*3/uL Baso # (Auto) 0.1 (0.0-0.2) X10*3/uL Abs Immat Gran (auto) 0.02 (0.00-0.03) X10*3/uL Absolute Neuts (auto) 4.9 (2.0-8.3) x10*3/uL Absolute Nucleated RBC 0.000 (0.0-0.012) X10*3/uL Nucleated RBC % (auto) 0.0 (0.0-0.2) /100WBC Sodium 133 L (135-145) mmol/L Potassium 4.2 (3.3-5.1) mmol/L Chloride 93 L (96-108) mmol/L Carbon Dioxide 29 (22-29) mmol/L Anion Gap 15 (12-20) BUN 6 L (9-16) mg/dL Creatinine 0.95 (0.5-1.4) mg/dL Estim Creat Clear Calc 72.3 Estimated GFR > 60 POC Glucose (60-115) mg/dL Fasting Glucose 572 H* (60-99) mg/dL Calcium 9.2 (8.4-10.2) mg/dL Total Bilirubin 0.3 (0.0-1.0) mg/dL AST 4 L (5-31) U/L ALT 7 (0-31) U/L Alkaline Phosphatase 137 H (39-117) U/L Total Protein 6.3 L (6.5-8.0) g/dL Albumin 3.4 L (3.5-5.0) g/dL Influenza Type A (PCR) NEGATIVE (Negative) Influenza Type B (PCR) NEGATIVE (Negative) RSV RNA Qual (PCR) NEGATIVE (Negative) SARS-CoV-2 RNA (RT-PCR) NEGATIVE (Negative) 02/24/23 Range/Units 12:05 WBC (4.8-10.8) X10*3/uL RBC (4.20-5.50) X10*6/uL Hgb (12.0-16.0) g/dl Hct (37.0-47.0) % MCV (80.0-98.0) fL MCH (27.0-33.0) pg MCHC (31.0-35.0) g/dl RDW (11.0-16.0) % Plt Count (160-400) X10*3/uL MPV (9.4-12.3) fL Immature Gran % (Auto) (0.0-0.4) % Neut % (Auto) (45-73) % Lymph % (Auto) (20-40) % [place] % (Auto) (2-11) % Eos % (Auto) (0-4) % Baso % (Auto) (0-2) % Lymph # (Auto) (1.2-4.9) X10*3/uL [place] # (Auto) (0.1-1.2) X10*3/uL Eos # (Auto) (0.0-0.4) X10*3/uL Baso # (Auto) (0.0-0.2) X10*3/uL Abs Immat Gran (auto) (0.00-0.03) X10*3/uL Absolute Neuts (auto) (2.0-8.3) x10*3/uL Absolute Nucleated RBC (0.0-0.012) X10*3/uL Nucleated RBC % (auto) (0.0-0.2) /100WBC Sodium (135-145) mmol/L Potassium (3.3-5.1) mmol/L Chloride (96-108) mmol/L Carbon Dioxide (22-29) mmol/L Anion Gap (12-20) BUN (9-16) mg/dL Creatinine (0.5-1.4) mg/dL Estim Creat Clear Calc Estimated GFR POC Glucose 502 H* (60-115) mg/dL Fasting Glucose (60-99) mg/dL Calcium (8.4-10.2) mg/dL Total Bilirubin (0.0-1.0) mg/dL AST (5-31) U/L ALT (0-31) U/L Alkaline Phosphatase (39-117) U/L Total Protein (6.5-8.0) g/dL Albumin (3.5-5.0) g/dL Influenza Type A (PCR) (Negative) Influenza Type B (PCR) (Negative) RSV RNA Qual (PCR) (Negative) SARS-CoV-2 RNA (RT-PCR) (Negative) Independent Interpretation I performed an independent interpretation of an: Plain X-Ray Interpretation: No evidence of acute focal infiltrate, effusion. External Record Review External record reviewed: Office record, Outpatient record and Prior outpatient labs Chronic Conditions Patient?s care impacted by: Diabetes Discharge Plan Discharge Clinical Impression: Steroid-induced hyperglycemia Patient Disposition: Home, Self-Care Instructions: Diabetic Hyperglycemia (ED), Skin Yeast Infection (ED) Additional Instructions: Your chest x-ray did not show any evidence of pneumonia. Do your best to quit smoking. Your blood sugar improved with IV fluids and insulin. Recommend following up with your doctor for further management of your insulin dosing and your diabetes. Recommend checking her sugars 4 times a day, before meals and before bedtime. Avoid food high in carbohydrates and sugars. Use the prescribed topical antifungal cream to help with itching. If you develop new or worsening symptoms call 911 or come back to the ER for further evaluation. Prescriptions: New nystatin 100,000 unit/gram ointment 1 appl topical BID Qty: 30 0RF No Action amitriptyline 10 mg tablet 2 tab PO BEDTIME oxybutynin chloride 5 mg tablet extended release 24 hr 1 tab PO QPM glipizide 5 mg tablet 2 tab PO BID calcium carbonate-vitamin D3 600 mg-10 mcg (400 unit) tablet 1 tab PO BID Incruse Ellipta 62.5 mcg/actuation blister with device 1 puff inhalation DAILY diclofenac sodium [Voltaren] 1 % gel 2 g topical QID Rx Instructions: apply to single elbow, wrist or hand; for hand includes palm/fingers/back of hand tizanidine 2 mg capsule 2 mg PO BEDTIME lorazepam 0.5 mg tablet 0.5 mg PO DAILY PRN (Reason: Anxiety) quetiapine 50 mg tablet extended release 24 hr 100 mg PO BEDTIME divalproex 250 mg tablet,delayed release (DR/EC) 250 mg PO BID gabapentin 800 mg tablet 800 mg PO TID atorvastatin [Lipitor] 10 mg tablet 10 mg PO DAILY omeprazole 40 mg capsule,delayed release(DR/EC) 40 mg PO DAILY metformin 500 mg tablet 500 mg PO BID riboflavin (vitamin B2) 100 mg tablet 100 mg PO QID duloxetine 60 mg capsule,delayed release(DR/EC) 60 mg PO BID meclizine 25 mg tablet,chewable 25 mg PO TID Rx Instructions: 1/2 tab tid oxycodone 5 mg tablet 5 mg PO BID PRN quetiapine 50 mg tablet PO gabapentin 300 mg capsule PO omeprazole 20 mg capsule,delayed release(DR/EC) 20 mg PO BID acetaminophen 650 mg tablet extended release 650 mg PO Q6H PRN (Reason: fever) baclofen 5 mg tablet 5 mg PO BID Basaglar Lora U-100 Insulin 100 unit/mL (3 mL) insulin pen 10 unit subcut QAM (DME) pen needle, diabetic [UltiCare Pen Needle] 32 gauge x 5/32 needle See Rx Instructions .ROUTE DIRECTED Qty: 50 Rx Instructions: As directed Referrals: Isabel Lewis DO [Primary Care Provider] - (Steroid induced hyperglycemia after being on prednisone. Chronic cough, smoker)
[2022-07-27 13:58] LABS: Glucose, Whole Blood 239 mg/dL (60-115)
== END 2022-07-27 14:26 | disposition home or self-care (01) ==
PROVIDERS: Emergency Provider Student in an Organized Health Care Education/Training Program; PCP Family Medicine
DX: E11.65 Type 2 diabetes mellitus with hyperglycemia (principal); R06.02 Shortness of breath; R05.9 Cough, unspecified; Z79.52 Long term (current) use of systemic steroids; Z20.822 Contact with and (suspected) exposure to COVID-19; Z20.828 Contact with and (suspected) exposure to other viral communicable diseases; Z79.899 Other long term (current) drug therapy; Z79.84 Long term (current) use of oral hypoglycemic drugs
CPT/HCPCS: 0241U; 71045; 80053; 82947; 85025; 96360; 99284

== ENCOUNTER 2022-11-05 08:06 | Outpatient (REF) | payer MEDICARE, MEDICAID, SELFPAY | END 2022-11-05 08:07 | disposition home or self-care (01) | LOC: HO.MAMMO 08:06 | PROVIDERS: PCP Family Medicine; Visit Provider Family Medicine | DX: Z13.89 Encounter for screening for other disorder (principal) ==

== ENCOUNTER 2022-12-12 10:34 | Outpatient (REF) | payer OTHER, SELFPAY ==
--- NOTE | ~2022-12-12 | MM_ITS ---
EXAMINATION: MM SCREENING DIGITAL BREAST TOMOSYNTHESIS, BILATERAL CLINICAL INFORMATION: Screening. Asymptomatic. The lifetime risk of breast cancer based on the Tyrer-Cuzick Model is 3.3%. COMPARISON: Mammography: This study is compared with prior exams dating back to 2018. TECHNIQUE: Digital breast tomosynthesis is performed in both the craniocaudal and mediolateral oblique views along with computer-aided detection (CAD). Synthesized 2D images are generated from the tomosynthesis. FINDINGS: There are scattered areas of fibroglandular density (ACR BI-RADS breast composition Category b). There are no significant masses, abnormal calcifications, or other abnormalities. MM/MM tomosynthesis screening BI IMPRESSION: No mammographic evidence of malignancy. ASSESSMENT: BI-RADS BI-RADS 1 - Negative RECOMMENDATION: Routine annual mammography screening. 1 year F/U This examination should not preclude the clinical evaluation of a suspicious palpable abnormality. This patient's information was entered into a reminder system with a target due date for their next mammogram.
== END 2022-12-12 10:35 | disposition home or self-care (01) ==
LOC: HO.MAMMO 10:34
PROVIDERS: PCP Family Medicine; Visit Provider Family Medicine
DX: Z12.31 Encounter for screening mammogram for malignant neoplasm of breast (principal)
CPT/HCPCS: 77063; 77067

== ENCOUNTER → 2022-12-12 11:30 | Outpatient (BNV) | payer OTHER, SELFPAY | PROVIDERS: PCP Family Medicine; Visit Provider Radiology Diagnostic Radiology | DX: Z12.31 Encounter for screening mammogram for malignant neoplasm of breast (principal) | CPT/HCPCS: 77063; 77067 ==

== ENCOUNTER 2023-02-15 17:04 | Outpatient (REF) | payer OTHER, SELFPAY ==
[2023-02-15 20:16] LABS: CT PCR NOT DETECTED (Not Detect.); NG PCR NOT DETECTED (Not Detect.)
[2023-02-20 07:28] LABS: HPV mRNA E6/E7 rflx Not Detected (Not Detected)
== END 2023-02-15 17:05 | disposition home or self-care (01) ==
LOC: HO.HHCLNP 17:04
PROVIDERS: Visit Provider Family Medicine
DX: Z01.419 Encounter for gynecological examination (general) (routine) without abnormal findings (principal); Z11.51 Encounter for screening for human papillomavirus (HPV); Z20.2 Contact with and (suspected) exposure to infections with a predominantly sexual mode of transmission
CPT/HCPCS: 0353U; 87624; 88142

== ENCOUNTER 2023-03-04 08:59 | Outpatient (AMB) | payer OTHER, SELFPAY ==
--- NOTE | 2023-03-04 09:34 | A.OFFVIS_ITS ---
Intake Vital Signs 03/04/23 09:36 Height 5 ft 3 in Weight 184 lb 8.43 oz BMI 32.7 BP 130/76 Blood Pressure Location Lt brachial Position Sitting Pulse 73 Pulse Source Pulse Oximeter Temp 97.4 F Temp Source Skin Pulse Oximetry (%) 97 Oxygen Delivery Method Room Air Intake Visit Reasons: RA Intake Note: Patient presents today to follow up on OA. c/o left knee pain, left sided lower back pain Binder And Box Builder Required: No Accompanied by: Son Allergies sumatriptan [From IMITREX] Allergy (Severe, Verified 03/04/23 09:35) SYNCOPE Penicillins [PENICILLINS] Allergy (Intermediate, Verified 03/04/23 09:35) SHORTNESS OF BREATH penicillin V Allergy (Unknown, Verified 03/04/23 09:35) swelling, rash, pruritis topiramate [From TOPAMAX] Adverse Reaction (Severe, Verified 03/04/23 09:35) OVERDOSED HPI HPI Comments History of Present Illness Details 50 Year old F returns for follow-up of Segregative RA. She was last seen in February 2022. Patient reports she has been off Methotrexate for most of that time. Says she also has not taken Kevzara since September 2021 due to mult iple respiratory infections. . Patient has complaints regarding pain in her hands, morning stiffness and Left knee pain. She also reports pain in her low back. She denies any improvement with Tylenol or Voltaren. At last visit patient continued to have crackles and cough on exam. Patients CRP improved from September 2021 to October 2021, likely due to the prednisone given to her by Pulmonary. Per Pulmonary notes September 29, patient has severe lung disease including ground-glass opacities seen on CT, smoking verses ILD versus methotrexate may be contributing to her disease. There is a question if patient has steroid responsive interstitial lung disease, pulmonary recommend patient discontinue methotrexate. Pulmonary was notified that methotrexate was discontinued and will not be restarted. CRP and sed rate remained elevated in early january with slightly increased white count. Analytical Lead Dr Elder was contacted on January 10, he reported there was no concern for pulmonary infecti on at this time. [facility] [place] Medical History (Updated 03/04/23 @ 16:01 by LUANNE Grajeda-EDWIN) Osteoarthritis (arthritis due to wear and tear of joints) Major depressive disorder PTSD (post-traumatic stress disorder) CAP (community acquired pneumonia) Fibromyalgia Asthma Chronic mixed headache syndrome Obstructive sleep apnea Diabetes Bipolar disorder Seronegative arthritis Surgical History Hx of colonoscopy Hx of cholecystectomy H/O shoulder surgery Family History Mother Arthritis Asthma Diabetes Social History Alcohol intake: former Patient Tobacco Use Status: Current everyday Tobacco user Cigarettes Per Day: 15 Years Smoked: 45 Review of Systems Const Details: Negative for appetite change, weight change, fever, chills, malaise and fatigue All systems reviewed & are unremarkable except as noted in HPI and below Reports no additional complaints Eyes Details: Negative for vision change, dry eyes,headaches. ENT Details: Admits to oral dryness. Card Details: Denies recent episode of syncope. Negative chest pain, edema and syncope Resp Details: Admits to cough with resp illnesses. Negative for SOB. GI Details: Negative indigestion/heartburn, nausea, abdominal pain, bowel changes, diarrhea, constipation and bloody stool. Takes Omeprazole Details: Negative for dysuria, hematuria, nocturia, decreased force/flow and genital di scharge Musc Reports back pain, Reports arthralgias, Reports joint swelling and Reports stiffness Skin/Breast Details: Last Mamogram 12/12/22. Negative for itching, rash, hives, Raynaud's symptoms, sun sensitivity, and skin cancer Reports system reviewed and no additional complaints, except as documented Neuro Details: Negative for epilepsy, palsy, stroke, changes in speech, tingling and weakness Psych Details: Negative for anxiety, depression and stress Endo Details: Uncomtrolled. IDDM. Negative for polyuria and polydypsia Jeancarlos/Lymph Details: Negative for excessive bruising or bleeding. Physical Exam Vital Signs: Last Vital Signs Temp 97.4 F 03/04/23 09:36 Pulse 73 03/04/23 09:36 BP 130/76 03/04/23 09:36 Pulse Ox 97 03/04/23 09:36 Oxygen Delivery Method Room Air 03/04/23 09:36 BMI result Body Mass Index 32.7 APPEARANCE: Patient in no acute distress, comfortable EARS: External ear normal. NOSE/SINUS: Airflow through both nares, no nasal discharge, no bleeding THROAT: Oral mucosa moist, no ulcerations NECK: No thyromegaly or masses, no adenopathy, trachea midline. HEART: Regular rhythm, S1-S2 heard, no murmurs, rubs or gallops. LUNG: Lung sounds distant throughout bilaterally. Respiratory rate regular. Non productive cough noted. EXTREMITIES: No edema, no calf tenderness, normal peripheral pulses. NEURO: Oriented and alert x3. No focal weakness. Uses a walker. SKIN: No inflammatory or neoplastic lesions. Normal color and turgor JOINT EXAM:? Cervical Spine: Full range of motion without pain; no tenderness. Thoracic Spine:? No scoliosis.? No tenderness on palpation. Lumbar Spine:? Alignment normal.? Tenderness to palpation of the paraspinal muscles, no tenderness over the lumbar spine. Chest: No bruising or ecchymosis noted. Patient has tenderness to palpation of the ribs throughout on the left side of her chest. Hands: LEFT:? Tenderness to palpation of MCP 2 3 and 4, no warmth no erythema RIGHT: Tenderness to palpation of MCP 2 3 and 4, no warmth, no erythema Wrists: ? LEFT: Slight tenderness to palpation. No swelling, no warmth or erythema. RIGHT: Slight tenderness to palpation. No swelling, no warmth or erythema. Elbows: Normal pain-free range of motion without tenderness, swelling, increased warmth or erythema. Shoulders: LEFT: Normal pain-free range of motion without tenderness, swelling, RIGHT: No tenderness, weakness, swelling, increased warmth or erythema. Knees:??RIGHT: Normal pain-free range of motion without tenderness, swelling, increased warmth or erythema.? There is no effusion or crepitation LEFT: Tenderness to palpation of the medial joint line, pain with range of motion in flexion extension. No increased erythema or warmth. No effusion or crepitation. Ankles:? Normal pain-free range of motion without tenderness, swelling, increased warmth or erythema. Feet:? Normal pain-free range of motion without tenderness, swelling, increased warmth or erythema. Neuro General: moves all extremities Extrem General: Yes no pedal edema Psych Speech and movement: Normal speech and movement present Results Reviewed Results Reviewed: Laboratory Tests 07/27/22 10:53 MCV 79.5 L MCH 25.6 L RDW 16.3 H Lymph % (Auto) 40.6 H Sodium 133 L Chloride 93 L BUN 6 L AST 4 L Alkaline Phosphatase 137 H Total Protein 6.3 L Albumin 3.4 L Assessment & Plan Assessment & Plan (1) Seronegative arthritis: Comment: Plaquenil: September 2016- December 2016- hallucinations Methotrexate: December 2016- September 2021- concern for ILD Sulfasalazine: May 2017- high disease activity sulfasalazine added to methotrexate- self stopped Enbrel: July 2017 -denied by insurance Humira: August 2017 added to methotrexate- stopped September 2018- active disease Enbrel: September 2018- September2019 active disease Zeljanz: September 2019-November 2020 Kevzara: November 2020- currently on hold Code(s): M13.80 - Other specified arthritis, unspecified site Plan: Patient continues to have joint pain for many years despite multiple immunosuppressive medications. Rheumatoid factor is negative. She has some slight MCP tenderness and swelling on exam. Her main concern today is Left Knee pain with mild swelling. She is using a cane, improved from using a walker. Will update labs and reconsider restarting methotrexate first then [place]. At this time, it is not thought that MTX contributed to her prior bouts of respiratory illness. (2) Left knee pain: Code(s): M25.562 - Pain in left knee Qualifiers: Chronicity: chronic Qualified Code(s): M25.562 - Pain in left knee; G89.29 - Other chronic pain Plan: Patient with tenderness to palpation of the left knee along the medial joint line, also pain with range of motion. No signs and symptoms of infection noted. Per patient this is a chronic issue. X-ray showed mild degenerative changes, she completed PT with no improvement. Recommended steroid injection but patient refused. Gave RX for a knee brace at patient's request. 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 Panel Today M13.80 - Other specified arthritis, unspecified site Complete Blood Count Auto Diff Today M13.80 - Other specified arthritis, unspecified site Erythrocyte Sedimentation Rate Today M13.80 - Other specified arthritis, unspecified site T Spot TB Today M13.80 - Other specified arthritis, unspecified site Hepatitis A,B,C Profile Today M13.80 - Other specified arthritis, unspecified site Medications: New leg brace As directed :Use during day when active. DO not wear to bed 1 ea 0RF Left Knee pain M13.80 - Other specified arthritis, unspecified site leg brace As directed :Use during day when active. 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
[2023-03-04 09:36] VITALS: BP 130/76; PULSE 73; TEMP 36.3; O2SAT 97; BMI 32.7
== END 2023-03-04 10:05 | disposition home or self-care (01) ==
PROVIDERS: PCP Family Medicine; Visit Provider Nurse Practitioner Family
DX: M13.80 Other specified arthritis, unspecified site (principal); M25.562 Pain in left knee; G89.29 Other chronic pain; Z79.899 Other long term (current) drug therapy; M15.9 Polyosteoarthritis, unspecified
CPT/HCPCS: 99214

== ENCOUNTER → 2023-03-04 08:59 | Outpatient (BNVA) | payer OTHER, SELFPAY | PROVIDERS: PCP Family Medicine; Visit Provider Nurse Practitioner Family | DX: M06.00 Rheumatoid arthritis without rheumatoid factor, unspecified site (principal); M13.80 Other specified arthritis, unspecified site; M79.7 Fibromyalgia; M25.562 Pain in left knee; G89.29 Other chronic pain; Z79.631 Long term (current) use of antimetabolite agent | CPT/HCPCS: 99212 ==

== ENCOUNTER 2023-04-24 10:17 | Outpatient (REF) | payer OTHER, SELFPAY ==
[2023-04-24 10:30] LABS: MANUAL DIFF FLAG NO
[2023-04-24 11:12] LABS: Basophils Absolute Auto 0.1 X10*3/uL (0.0-0.2); Basophils Percent Auto 0.8 % (0-2); Eosinophils Absolute Auto 0.2 X10*3/uL (0.0-0.4); Eosinophils Percent Auto 2.4 % (0-4); Hematocrit 33.2 % (37.0-47.0); Hemoglobin 10.7 g/dl (12.0-16.0); Imm Gran Abs Auto 0.02 X10*3/uL (0.00-0.03); Imm Gran Pct Auto 0.2 % (0.0-0.4); Lymphocytes Absolute Auto 3.7 X10*3/uL (1.2-4.9); Mean Corpuscular HGB Conc 32.2 g/dl (31.0-35.0); Mean Corpuscular Hemoglobin 26.5 pg (27.0-33.0); Mean Corpuscular Volume 82.2 fL (80.0-98.0); Mean Platelet Volume 9.5 fL (9.4-12.3); Monocytes Absolute Auto 0.5 X10*3/uL (0.1-1.2); Monocytes Percent Auto 5.4 % (2-11); Neutrophils Absolute Auto 4.8 x10*3/uL (2.0-8.3); Neutrophils Percent Auto 51.2 % (45-73); Platelet Count 369 X10*3/uL (160-400); Red Blood Count 4.04 X10*6/uL (4.20-5.50); White Blood Count 9.3 X10*3/uL (4.8-10.8)
[2023-04-24 11:28] LABS: Alanine Aminotransferase 8 U/L (0-31); Albumin Level 3.8 g/dL (3.5-5.0); Alkaline Phosphatase 139 U/L (39-117); Anion Gap 10 (12-20); Aspartate Amino Transferase 13 U/L (5-31); Bilirubin Total 0.3 mg/dL (0.0-1.0); Blood Urea Nitrogen 7 mg/dL (9-16); Calcium 9.7 mg/dL (8.4-10.2); Carbon Dioxide 26 mmol/L (22-29); Chloride 108 mmol/L (96-108); Estimated Glomerular Filt Rate > 60; Glucose Random 95 mg/dL (60-115); Potassium 4.3 mmol/L (3.3-5.1); Sodium 140 mmol/L (135-145); Total Protein 7.4 g/dL (6.5-8.0)
[2023-04-24 11:48] LABS: HBc Num1 0.06 S/CO (0.00-0.79); HBsAGNum1 0.47 S/CO (0.00-0.99); Hepatitis A Antibody IgM 0.52 Index (0-0.79); Hepatitis B Core Antibody Nonreactive (Nonreactive); Hepatitis B Surface Antigen Negative (Negative); ~HepC Num1 0.14 S/CO (0.00-0.79); ~Hepatitis A Antibody IgM Nonreactive (Nonreactive); ~Hepatitis B Surface Antibody NONREACTIVE (Nonreactive); ~Hepatitis C Antibody Nonreactive (Nonreactive)
[2023-04-24 11:53] LABS: Erythrocyte Sedimentation Rate 86 MM/HR (0-20)
== END 2023-04-24 10:18 | disposition home or self-care (01) ==
LOC: HO.LAB 10:17
PROVIDERS: PCP Family Medicine; Visit Provider Nurse Practitioner Family
DX: M13.80 Other specified arthritis, unspecified site (principal); M06.00 Rheumatoid arthritis without rheumatoid factor, unspecified site
CPT/HCPCS: 36415; 80053; 85025; 85652; 86140; 86704; 86706; 86709; 86803; 87340

== ENCOUNTER 2023-04-30 08:53 | Outpatient (AMB) | payer OTHER, SELFPAY ==
--- NOTE | 2023-04-30 09:02 | MHC.OFFVIS ---
Intake Vital Signs 04/30/23 09:03 Height 5 ft 3 in Weight 177 lb 4.026 oz BMI 31.4 BP 124/70 Blood Pressure Location Rt brachial Position Sitting Pulse 80 Pulse Source Pulse Oximeter Temp 97.2 F Temp Source Skin Pulse Oximetry (%) 97 Oxygen Delivery Method Room Air Intake Visit Reasons: RA Intake Note: Patient presents today to follow up on test results and RA. Straightening Press Operator Required: No Accompanied by: Child Allergies sumatriptan [From IMITREX] Allergy (Severe, Verified 04/30/23 09:06) SYNCOPE Penicillins [PENICILLINS] Allergy (Intermediate, Verified 04/30/23 09:06) SHORTNESS OF BREATH penicillin V Allergy (Unknown, Verified 04/30/23 09:06) swelling, rash, pruritis topiramate [From TOPAMAX] Adverse Reaction (Severe, Verified 04/30/23 09:06) OVERDOSED HPI HPI Comments History of Present Illness Details 50 Year old F returns for follow-up of Segregative RA. She continues with complaints regarding pain in her hands, morning stiffness and Left knee pain and is wearing a brace today. She also reports pain in her low back. She denies any improvement with Tylenol or Voltaren. --She was in the ER on 04/26/2023 due to asthma flare. A chest Xray was done --Uncontrolled T2DM, COPD, Asthma --She has been off Methotrexate for most of that time. Says she also has not taken Kevzara since September 2021 due to multiple respiratory infections. Continue Prior visit info - patient continued to have crackles and cough on exam. Patients CRP improved from September 2021 to October 2021, likely due to the prednisone given to her by Pulmonary. Per Pulmonary notes September 29, patient has severe lung disease including ground-glass opacities seen on CT, smoking verses ILD versus methotrexate may be contributing to her disease. There is a question if patient has steroid responsive interstitial lung disease, pulmonary recommend patient discontinue methotrexate. Pulmonary was notified that methotrexate was discontinued and will not be restarted. CRP and sed rate remained elevated in early january with slightly increased white count. Child Adolescent Psychiatrist Dr Elder was contacted on January 10, he reported there was no concern for pulmonary infection at this time. [facility] Medical History (Updated 03/04/23 @ 16:01 by Skylar Jessica, TORCH HEATER-BC) Osteoarthritis (arthritis due to wear and tear of joints) Major depressive disorder PTSD (post-traumatic stress disorder) CAP (community acquired pneumonia) Fibromyalgia Asthma Chronic mixed headache syndrome Obstructive sleep apnea Diabetes Bipolar disorder Seronegative arthritis Surgical History Hx of colonoscopy Hx of cholecystectomy H/O shoulder surgery Family History Mother Arthritis Asthma Diabetes Alcohol intake: former Patient Tobacco Use Status: Current everyday Tobacco user Cigarettes Per Day: 15 Years Smoked: 45 Review of Systems Const All systems reviewed & are unremarkable except as noted in HPI and below Physical Exam Vital Signs: Last Vital Signs Temp 97.2 F 04/30/23 09:03 Pulse 80 04/30/23 09:03 BP 124/70 04/30/23 09:03 Pulse Ox 97 04/30/23 09:03 Oxygen Delivery Method Room Air 04/30/23 09:03 BMI result Body Mass Index 31.4 APPEARANCE: Patient in no acute distress, comfortable EARS: External ear normal. NOSE/SINUS: Airflow through both nares, no nasal discharge, no bleeding THROAT: Oral mucosa moist, no ulcerations NECK: No thyromegaly or masses, no adenopathy, trachea midline. HEART: Regular rhythm, S1-S2 heard, no murmurs, rubs or gallops. LUNG: Lung sounds distant throughout bilaterally. diminished in the bases. Respiratory rate regular. Non productive cough noted. EXTREMITIES: No edema, no calf tenderness, normal peripheral pulses. Finger clubbing NEURO: Oriented and alert x3. No focal weakness. Uses a walker. SKIN: No inflammatory or neoplastic lesions. Normal color and turgor JOINT EXAM:? Cervical Spine: Full range of motion without pain; no tenderness. Thoracic Spine:? No scoliosis.? No tenderness on palpation. Lumbar Spine:? Alignment normal.? Tenderness to palpation of the paraspinal muscles, no tenderness over the lumbar spine. Chest: No bruising or ecchymosis noted. Patient has tenderness to palpation of the ribs throughout on the left side of her chest. Hands: LEFT:? Tenderness to palpation of MCP 2 3 and 4, no warmth no erythema RIGHT: Tenderness to palpation of MCP 2 3 and 4, no warmth, no erythema Wrists: ? LEFT: Slight tenderness to palpation. No swelling, no warmth or erythema. RIGHT: Slight tenderness to palpation. No swelling, no warmth or erythema. Elbows: Normal pain-free range of motion without tenderness, swelling, increased warmth or erythema. Shoulders: LEFT: Normal pain-free range of motion without tenderness, swelling, RIGHT: No tenderness, weakness, swelling, increased warmth or erythema. Knees:??RIGHT: Normal pain-free range of motion without tenderness, swelling, increased warmth or erythema.? There is no effusion or crepitation LEFT: Tenderness to palpation of the medial joint line, pain with range of motion in flexion extension. No increased erythema or warmth. No effusion or crepitation. Ankles:? Normal pain-free range of motion without tenderness, swelling, increased warmth or erythema. Feet:? Normal pain-free range of motion without tenderness, swelling, increased warmth or erythema. Neuro General: moves all extremities Extrem General: Yes no pedal edema Psych Speech and movement: Normal speech and movement present Results Reviewed Results Reviewed: Laboratory Tests 04/24/23 10:28 RBC 4.04 L Hgb 10.7 L Hct 33.2 L MCH 26.5 L ESR 86 H Alkaline Phosphatase 139 H C-Reactive Protein 2.70 H Assessment & Plan Assessment & Plan (1) Seronegative arthritis: Comment: Plaquenil: September 2016- December 2016- hallucinations Methotrexate: December 2016- September 2021- concern for ILD Sulfasalazine: May 2017- high disease activity sulfasalazine added to methotrexate- self stopped Enbrel: July 2017 -denied by insurance Humira: August 2017 added to methotrexate- stopped September 2018- active disease Enbrel: September 2018- September2019 active disease Zeljanz: September 2019-November 2020 Kevzara: November 2020- currently on hold Code(s): M13.80 - Other specified arthritis, unspecified site (2) Left knee pain: Code(s): M25.562 - Pain in left knee Qualifiers: Chronicity: chronic Qualified Code(s): M25.562 - Pain in left knee; G89.29 - Other chronic pain (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 She had a recent visit to the ER for Asthma and chest Xray was clear.. Recent labs show markedly elevated ESR/CRP at 86 and 2.70 respectively supporting active disease state. Today she has MCP tenderness and swelling on exam. She also has finger clubbing but denies sunshine pain and recent Chest Xray was normal. The clubbing is most likely related to the COPD. I will prescribe Leflunomide 10 mg QD to start and after the TB test results, I will add ACTEMRA. I think Actemra is a reasonable choice. Given she has a history of elevated Blood Glucose on Prednisone and uncontrolled T2DM, we will not use Prednisone. #Left Knee Pain: She is wearing the brace today and says it has help the Left Knee pain and gives her more stability when walking. She did not have a cane today. Continues with tenderness to palpation of the left knee along the medial joint line, also pain with range of motion. X-ray showed mild degenerative changes, she completed PT with no improvement. Recommended steroid injection but patient refused. #Nursing Home Use of Immunosuppression: I will obtain labs to monitor for liver toxicity and blood dyscrasias. Also Discussed with patient additional side effects to include but not limited to N/V/D. Orders: Orders Comprehensive Met. Panel 8 Weeks M13.80 - Other specified arthritis, unspecified site, Z79.899 - Other fpc (current) drug therapy Erythrocyte Sedimentation Rate 8 Weeks M13.80 - Other specified arthritis, unspecified site, Z79.899 - Other fpc (current) drug therapy C Reactive Protein 8 Weeks M13.80 - Other specified arthritis, unspecified site, Z79.899 - Other fpc (current) drug therapy Complete Blood Count Auto Diff 8 Weeks M13.80 - Other specified arthritis, unspecified site, Z79.899 - Other long term acute care registered nurse (current) drug therapy Medications: New leflunomide 10 mg PO DAILY 60 tabs 0RF Coding Level of Care Code Tele Est Pt Level 3 (66036) Diagnoses Seronegative arthritis M13.80 Chronic pain of left knee M25.562; G89.29 Chronicity: chronic terminal operations 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
[2023-04-30 09:03] VITALS: BP 124/70; PULSE 80; TEMP 36.2; O2SAT 97; BMI 31.4
== END 2023-04-30 09:29 | disposition home or self-care (01) ==
PROVIDERS: PCP Family Medicine; Visit Provider Nurse Practitioner Family
DX: M13.80 Other specified arthritis, unspecified site (principal); M25.562 Pain in left knee; G89.29 Other chronic pain; Z79.631 Long term (current) use of antimetabolite agent
CPT/HCPCS: 99214

== ENCOUNTER → 2023-04-30 08:53 | Outpatient (BNVA) | payer OTHER, SELFPAY | PROVIDERS: PCP Family Medicine; Visit Provider Nurse Practitioner Family | DX: M13.80 Other specified arthritis, unspecified site (principal); M25.562 Pain in left knee; G89.29 Other chronic pain; Z79.899 Other long term (current) drug therapy | CPT/HCPCS: 99212 ==

== ENCOUNTER 2023-06-05 10:18 | Outpatient (REF) | payer OTHER, SELFPAY ==
[2023-06-05 10:48] LABS: MANUAL DIFF FLAG NO
[2023-06-05 11:05] LABS: Basophils Absolute Auto 0.1 X10*3/uL (0.0-0.2); Eosinophils Absolute Auto 0.2 X10*3/uL (0.0-0.4); Eosinophils Percent Auto 1.4 % (0-4); Hematocrit 34.5 % (37.0-47.0); Hemoglobin 11.2 g/dl (12.0-16.0); Imm Gran Abs Auto 0.05 X10*3/uL (0.00-0.03); Imm Gran Pct Auto 0.5 % (0.0-0.4); Lymphocytes Absolute Auto 3.3 X10*3/uL (1.2-4.9); Lymphocytes Percent Auto 31.9 % (20-40); Mean Corpuscular HGB Conc 32.5 g/dl (31.0-35.0); Mean Corpuscular Hemoglobin 26.9 pg (27.0-33.0); Mean Corpuscular Volume 82.7 fL (80.0-98.0); Mean Platelet Volume 10.1 fL (9.4-12.3); Monocytes Absolute Auto 0.4 X10*3/uL (0.1-1.2); Monocytes Percent Auto 3.7 % (2-11); Neutrophils Absolute Auto 6.4 x10*3/uL (2.0-8.3); Neutrophils Percent Auto 61.5 % (45-73); Platelet Count 344 X10*3/uL (160-400); Red Blood Count 4.17 X10*6/uL (4.20-5.50); Red Cell Distribution Width 17.8 % (11.0-16.0); White Blood Count 10.5 X10*3/uL (4.8-10.8)
[2023-06-05 13:05] LABS: Alanine Aminotransferase 11 U/L (0-31); Albumin Level 3.8 g/dL (3.5-5.0); Alkaline Phosphatase 130 U/L (39-117); Anion Gap 10 (12-20); Aspartate Amino Transferase 13 U/L (5-31); Bilirubin Total 0.2 mg/dL (0.0-1.0); Blood Urea Nitrogen 9 mg/dL (9-16); C Reactive Protein 0.25 mg/dL (< or = 0.50); Calcium 9.3 mg/dL (8.4-10.2); Carbon Dioxide 26 mmol/L (22-29); Chloride 111 mmol/L (96-108); Estimated Glomerular Filt Rate > 60; Glucose Random 129 mg/dL (60-115); Potassium 3.8 mmol/L (3.3-5.1); Sodium 143 mmol/L (135-145); Total Protein 6.5 g/dL (6.5-8.0)
== END 2023-06-05 10:19 | disposition home or self-care (01) ==
LOC: HO.XRAY 10:18
PROVIDERS: Nurse Practitioner Family; PCP Family Medicine; Visit Provider Family Medicine
DX: M13.80 Other specified arthritis, unspecified site (principal); R68.84 Jaw pain; Z79.899 Other long term (current) drug therapy
CPT/HCPCS: 36415; 70100; 80053; 85025; 85652; 86140

== ENCOUNTER → 2023-06-19 07:26 | Outpatient (REF) | payer OTHER, SELFPAY ==
--- NOTE | ~2023-06-19 | NM_ITS ---
EXAMINATION: RADIONUCLIDE SOLID FOOD GASTRIC EMPTYING 4-HOUR STUDY CLINICAL INFORMATION: Frequent nausea and vomiting upper meals. COMPARISON: None. TECHNIQUE: A standard meal consisting of 4 oz of Egg Beaters brand tagged with microcuries Tc-99m Sulfur Colloid, 8 oz water and 2 slices of toast with jelly was administered orally to the patient. Images were obtained using a dual head gamma camera in the anterior and posterior projections over of the stomach immediately post ingestion and at hourly intervals up to 4 hours post ingestion. The anterior and posterior counts at each time interval were averaged using the geometric mean and expressed as percentage of the immediate post ingestion counts. FINDINGS: There is good visualization of activity in the stomach immediately post ingestion. As the study progresses, there is delayed clearance of activity from the stomach and delayed visualization of progressively increasing small bowel activity. By the end of the study, there is significant retention noted in the stomach. Retention in the stomach at each time interval was: 1 hour 97% (normal 37%-90%) 2 hours 77% (normal 30%-60%) 3 hours 56% 4 hours 44% (normal 0%-10%) NM/NM gastric emptying study IMPRESSION: Abnormal grade 3 delayed 4 hour gastric emptying study. (For solid meal, rapid gastric emptying is less than 30% at 60 minutes. Delayed gastric emptying criteria is more than 60% remaining at 120 minutes or more than 10% at 240 minutes. The 4-hour value is the best discriminator of a normal or abnormal result). Gastric emptying study grading per JNMT Consensus Recommendations in 2008 (https://tech.snmjournals.org/content/36/44) Grade 1 (mild retention): 11-20% at 4h Grade 2 (moderate retention): 21-35% at 4h Grade 3 (severe retention): 36-50% at 4h Grade 4 (very severe retention): >50% retention at 4h
== END ==
LOC: HO.NUCMED 07:26
PROVIDERS: PCP Family Medicine; Visit Provider Family Medicine
DX: R11.2 Nausea with vomiting, unspecified (principal)
CPT/HCPCS: 78264; A9541

== ENCOUNTER 2023-06-26 08:52 | Outpatient (AMB) | payer OTHER, SELFPAY ==
--- NOTE | 2023-06-26 08:59 | A.OFFVIS_ITS ---
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 Machines Language: Leather Grader Name: PT states son will translate Accompanied by: Son Allergies sumatriptan [From IMITREX] Allergy (Severe, Verified 06/26/23 09:03) SYNCOPE Penicillins [PENICILLINS] Allergy (Intermediate, Verified 06/26/23 09:03) SHORTNESS OF BREATH penicillin V Allergy (Unknown, Verified 06/26/23 09:03) swelling, rash, pruritis topiramate [From TOPAMAX] Adverse Reaction (Severe, Verified 06/26/23 09:03) OVERDOSED Medication List - Last Reconciled 06/26/23 by Sri Goldberg RN acetaminophen ER 650 mg PO Q6H PRN albuterol sulfate 90 mcg/actuation (Ventolin HFA) inhalation albuterol sulfate mg inhalation amitriptyline 2 tabs PO BEDTIME aripiprazole 20 mg PO DAILY atorvastatin (Lipitor) 10 mg PO DAILY baclofen 5 mg PO BID budesonide-formoterol 160-4.5 mcg/actuation (Symbicort) 2 puffs inhalation BID buspirone 15 mg PO TID calcium carbonate-vitamin D3 600 mg-10 mcg (400 unit) 1 tab PO BID cholecalciferol (vitamin D3) 50 mcg PO DAILY diclofenac sodium 1% (Voltaren) 2 grams topical QID divalproex ER mg PO dulaglutide (Trulicity) mg subcut duloxetine 60 mg PO BID folic acid 1 mg PO QAM furosemide 80 mg PO DAILY gabapentin 800 mg PO TID gabapentin mg PO TID glipizide mg PO BID ibuprofen mg PO insulin degludec (Tresiba FlexTouch U-200 insulin) units subcut leflunomide 10 mg PO DAILY leg brace As directed :Use during day when active. DO not wear to bed lorazepam 0.5 mg PO DAILY PRN magnesium oxide 400 mg PO DAILY meclizine 25 mg PO BID PRN melatonin mg PO metformin 500 mg PO BID multivit-iron sulf-folic acid 15 mg iron- 400 mcg (Tab-A-Manjeet Multivitamin w- iron) tabs PO nystatin 1 appl topical BID omeprazole 20 mg PO BID oxybutynin chloride ER 1 tab PO QPM pen needle, diabetic (UltiCare Pen Needle) As directed polyethylene glycol 3350 (Gavilax) grams PO quetiapine mg PO quetiapine mg PO riboflavin (vitamin B2) 100 mg PO QID tizanidine 2 mg PO BEDTIME tocilizumab (Actemra ACTPen) 162 mg (0.9 mL) subcut QWEEK umeclidinium 62.5 mcg/actuation (Incruse Ellipta) 1 puff inhalation DAILY HPI HPI Comments History of Present Illness Details 50 Year old F returns for follow-up of Segregative RA and Osteoarthritis. She is on Leflunomide and Actemra. She continues with complaints regarding pain in her hands, morning stiffness and Left knee pain and is wearing a brace today. She also reports pain in her low back. She denies any improvement with Tylenol or Voltaren. Rhe cold makes her joints hurt more. --Uncontrolled T2DM, COPD, Asthma Prior Visit: --She has been off Methotrexate for most of that time. Says she also has not taken Kevzara since September 2021 due to multiple respiratory infections. Continue Prior visit info - patient continued to have crackles and cough on exam. Patients CRP improved from September 2021 to October 2021, likely due to the prednisone given to her by Pulmonary. Per Pulmonary notes September 29, patient has severe lung disease including ground-glass opacities seen on CT, smoking verses ILD versus methotrexate may be contributing to her disease. There is a question if patient has steroid responsive interstitial lung disease, pulmonary recommend patient discontinue methotrexate. Pulmonary was notified that methotrexate was discontinued and will not be restarted. CRP and sed rate remained elevated in early january with slightly increased white count. Hose Turner Dr Elder was contacted on January 10, he reported there was no concern for pulmonary infecti on at this time. [facility] Medical History Osteoarthritis (arthritis due to wear and tear of joints) Major depressive disorder PTSD (post-traumatic stress disorder) CAP (community acquired pneumonia) Fibromyalgia Asthma Chronic mixed headache syndrome Obstructive sleep apnea Diabetes Bipolar disorder Seronegative arthritis Surgical History Hx of colonoscopy Hx of cholecystectomy H/O shoulder surgery Family History Mother Arthritis Asthma Diabetes Social History Alcohol intake: former Patient Tobacco Use Status: Current everyday Tobacco user Cigarettes Per Day: 15 Years Smoked: 45 Review of Systems Const All systems reviewed & are unremarkable except as noted in HPI and below Physical Exam Vital Signs: Last Vital Signs Temp 97.5 F 06/26/23 09:01 Pulse 87 06/26/23 09:01 Resp 16 06/26/23 09:01 BP 109/73 06/26/23 09:01 Pulse Ox 95 06/26/23 09:01 Oxygen Delivery Method Room Air 06/26/23 09:01 BMI result Body Mass Index 32.6 APPEARANCE: Patient in no acute distress, comfortable EARS: External ear normal. NOSE/SINUS: Airflow through both nares, no nasal discharge, no bleeding THROAT: Oral mucosa moist, no ulcerations NECK: No thyromegaly or masses, no adenopathy, trachea midline. HEART: Regular rhythm, S1-S2 heard, no murmurs, rubs or gallops. LUNG: Lung sounds distant throughout bilaterally. diminished in the bases. Respiratory rate regular. Non productive cough noted. EXTREMITIES: No edema, no calf tenderness, normal peripheral pulses. Finger clubbing NEURO: Oriented and alert x3. No focal weakness. Uses a walker. SKIN: No inflammatory or neoplastic lesions. Normal color and turgor JOINT EXAM:? Cervical Spine: Full range of motion without pain; no tenderness. Thoracic Spine:? No scoliosis.? No tenderness on palpation. Lumbar Spine:? Alignment normal.? Tenderness to palpation of the paraspinal muscles, no tenderness over the lumbar spine. Chest: No bruising or ecchymosis noted. Patient has tenderness to palpation of the ribs throughout on the left side of her chest. Hands: LEFT:? Tenderness to palpation of MCP 2 3 and 4, no warmth no erythema RIGHT: Tenderness to palpation of MCP 2 3 and 4, no warmth, no erythema Wrists: ? LEFT: Slight tenderness to palpation. No swelling, no warmth or erythema. RIGHT: Slight tenderness to palpation. No swelling, no warmth or erythema. Elbows: Normal pain-free range of motion without tenderness, swelling, increased warmth or erythema. Shoulders: LEFT: Normal pain-free range of motion without tenderness, swelling, RIGHT: No tenderness, weakness, swelling, increased warmth or erythema. Knees:??RIGHT: Normal pain-free range of motion without tenderness, swelling, increased warmth or erythema.? There is no effusion or crepitation LEFT: Tenderness to palpation of the medial joint line, pain with range of motion in flexion extension. No increased erythema or warmth. No effusion or crepitation. Ankles:? Normal pain-free range of motion without tenderness, swelling, increased warmth or erythema. Feet:? Normal pain-free range of motion without tenderness, swelling, increased warmth or erythema. Neuro General: moves all extremities Extrem General: Yes no pedal edema Psych Speech and movement: Normal speech and movement present Assessment & Plan Assessment & Plan (1) Seronegative arthritis: Comment: Plaquenil: September 2016- December 2016- hallucinations Methotrexate: December 2016- September 2021- concern for ILD Sulfasalazine: May 2017- high disease activity sulfasalazine added to methotrexate- self stopped Enbrel: July 2017 -denied by insurance Humira: August 2017 added to methotrexate- stopped September 2018- active disease Enbrel: September 2018- September2019 active disease Zeljanz: September 2019-November 2020 Kevzara: November 2020- currently on hold Code(s): M13.80 - Other specified arthritis, unspecified site (2) Left knee pain: Code(s): M25.562 - Pain in left knee Qualifiers: Chronicity: chronic Qualified Code(s): M25.562 - Pain in left knee; G89.29 - Other chronic pain (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 The sed rate and CRP is greatly improved from 87 to 28 and 2.7 to 0.33 respectfully. We will continue with the current regimen. I discussed with patient that there are aspects of her pain the is from Fibromyalgia and OA and plain deconditioned state. I think there is improvement to her hands and elbows. PCP was concerned for ACTEMRA elevating BS. I am not certain the BS are a consequence of ACTEMRA. In reviewing the readings with patient the levels were elevated before starting on these medication. I sent a message to PCP to consider modifying The T2DM regimen since we are gaining control of the inflammation form the RA. Prior: Patient has been off immunosuppressive medications due to recurring respiratory infections but has been stable over the last 6 months without infections. She had a recent visit to the ER for Asthma and chest Xray was clear.. Recent labs show markedly elevated ESR/CRP at 86 and 2.70 respectively supporting active disease state. Today she has MCP tenderness and swelling on exam. She also has finger clubbing but denies sunshine pain and recent Chest Xray was normal. The clubbing is most likely related to the COPD. I will prescribe Leflunomide 10 mg QD to start and after the TB test results, I will add ACTEMRA. I think Actemra is a reasonable choice. Given she has a history of elevated Blood Glucose on Prednisone and uncontrolled T2DM, we will not use Prednisone. #Left Knee Pain: She is wearing the brace today and says it has help the Left Knee pain and gives her more stability when walking. She did have a cane today. Continues with tenderness to palpation of the left knee along the medial joint line, also pain with range of motion. X-ray showed mild degenerative changes, she completed PT with no improvement. Recommended steroid injection and patient will consider to call for injection before going to [place]. #Half-Way Use of Immunosuppression: I will obtain labs to monitor for liver toxicity and blood dyscrasias. Also Discussed with patient additional side effects to include but not limited to N/V/D. Orders: Orders C Reactive Protein Today M13.80 - Other specified arthritis, unspecified site, Z79.899 - Other care home (current) drug therapy Erythrocyte Sedimentation Rate Today M13.80 - Other specified arthritis, unspecified site, Z79.899 - Other care home (current) drug therapy Complete Blood Count Auto Diff Today M13.80 - Other specified arthritis, unspecified site, Z79.899 - Other ferry terminal supervisor (current) drug therapy Comprehensive Met. Panel Today M13.80 - Other specified arthritis, unspecified site, Z79.899 - Other care home (current) drug therapy Medications: Changed From diclofenac sodium 1% (Voltaren) apply to single elbow, wrist or hand; for hand includes palm/fingers/back of hand 2 grams topical QID To diclofenac sodium 1% apply to single elbow, wrist or hand; for hand includes palm/fingers/back of hand 2 grams topical QID 100 grams 0RF Coding Level of Care Code Tele Est Pt Level 3 (15818) Diagnoses Seronegative arthritis M13.80 Chronic pain of left knee M25.562; G89.29 Chronicity: chronic correction 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
[2023-06-26 09:01] VITALS: BP 109/73; PULSE 87; RESP 16; TEMP 36.4; O2SAT 95; BMI 32.6
== END 2023-06-26 09:52 | disposition home or self-care (01) ==
PROVIDERS: PCP Family Medicine; Visit Provider Nurse Practitioner Family
DX: M06.09 Rheumatoid arthritis without rheumatoid factor, multiple sites (principal); M25.562 Pain in left knee; G89.29 Other chronic pain; Z79.899 Other long term (current) drug therapy
CPT/HCPCS: 99214

== ENCOUNTER → 2023-06-26 08:52 | Outpatient (BNVA) | payer OTHER, SELFPAY | PROVIDERS: PCP Family Medicine; Visit Provider Nurse Practitioner Family | DX: M13.80 Other specified arthritis, unspecified site (principal); M25.562 Pain in left knee; G89.29 Other chronic pain; Z79.899 Other long term (current) drug therapy | CPT/HCPCS: 99212 ==

== ENCOUNTER 2023-09-30 08:55 | Outpatient (AMB) | payer OTHER, SELFPAY ==
[2023-09-30 08:58] VITALS: BP 130/78; PULSE 97; BMI 33.4
--- NOTE | 2023-09-30 08:58 | A.OFFVIS_ITS ---
Vital Signs 09/30/23 08:58 Height 5 ft 3 in Weight 188 lb 11.451 oz BMI 33.4 BP 130/78 Blood Pressure Location Rt brachial Position Sitting Pulse 97 Intake Visit Reasons: epigastric pains Intake Note: New patient in office today for evaluation and management of epigastric pain. CC: Patient c/o epigastric pain, burning from stomach, nausea, vomiting, and constipation. She is currently taking Omeprazole 40 mg BID but states she continues having pain. Denies other GI symptoms. Trolley Operator Required: No Allergies sumatriptan [From IMITREX] Allergy (Severe, Verified 09/30/23 09:05) SYNCOPE Penicillins [PENICILLINS] Allergy (Intermediate, Verified 09/30/23 09:05) SHORTNESS OF BREATH penicillin V Allergy (Unknown, Verified 09/30/23 09:05) swelling, rash, pruritis topiramate [From TOPAMAX] Adverse Reaction (Severe, Verified 09/30/23 09:05) OVERDOSED HPI Comments Details: This is a 53y.o F with uncontrolled T2DM who is here for question of gastroparesis. History was obtained from the pt who notes significant postprandial discomfort with nausea and occasional vomiting. No unintentional weight loss in the last 6 months. GES 06/19/23 results reviewed 1 hour 97% (normal 37%-90%) 2 hours 77% (normal 30%-60%) 3 hours 56% 4 hours 44% (normal 0%-10%) From chart review appears pt had highly abnormal BG around that time - see notes from 06/24/23 that has documented BG >350 since 06/15/23. Pt has never had EGD. Last colo 2019. Adequate prep. Repeat due in 2025. [facility] Medical History Osteoarthritis (arthritis due to wear and tear of joints) Major depressive disorder PTSD (post-traumatic stress disorder) CAP (community acquired pneumonia) Fibromyalgia Asthma Chronic mixed headache syndrome Obstructive sleep apnea Diabetes Bipolar disorder Seronegative arthritis Surgical History Hx of colonoscopy Hx of cholecystectomy H/O shoulder surgery Family History Mother Arthritis Asthma Diabetes Social History Alcohol intake: former Patient Tobacco Use Status: Current everyday Tobacco user Cigarettes Per Day: 15 Years Smoked: 45 Review of Systems Const All systems reviewed & are unremarkable except as noted in HPI and below Physical Exam Vital Signs: Last Vital Signs Pulse 97 09/30/23 08:58 BP 130/78 09/30/23 08:58 BMI result Body Mass Index 33.4 NAD With obesity Nonicteric No overt resp distress No abd distention A/Ox3, ambulates with the help fo a walker Assessment & Plan Assessment & Plan (1) Uncontrolled diabetes mellitus with hyperglycemia: Code(s): E11.65 - Type 2 diabetes mellitus with hyperglycemia Category: Medical (2) Delayed gastric emptying: Code(s): K30 - Functional dyspepsia Category: Medical Plan Reviewed with the pt that delayed gastric emptying noted on GES 06/2023 was likely in the setting of uncontrolled BG. Per protocol, GES should NOT be performed until BG <180 have been established. Discussed with the pt that mainstay would be to optimize control of diabetes to improve gastric emptying as longstanding hyperglycemia may eventually lead to diabetic gastroparesis. This will be a combination of lifestyle change as well as med management. Plan: - Follow up with PCP for diabetes management - may benefit from Endocrine referral - Shellfish Bed Worker referral - Goal BG <180 postprandial - Try to keep >60% of intake in liquid form - Stay upright for at least 60-90 mins post meals - Cont PPI as ot with delayed gastric emptying may be predisposed to reflux - No red flags to warrant urgent EGD at this time - may be considered if sx persist despite measures above - Follow up 4 months Orders: Referrals Field Sales Manager Nutrition Referral E11.65 - Type 2 diabetes mellitus with hyperglycemia Coding Level of Care Code New Pt Level 4 (81207) Diagnoses Uncontrolled diabetes mellitus with hyperglycemia E11.65 Delayed gastric emptying K30
== END 2023-09-30 10:01 | disposition home or self-care (01) ==
PROVIDERS: PCP Family Medicine; Visit Provider Internal Medicine
DX: E11.65 Type 2 diabetes mellitus with hyperglycemia (principal); K30 Functional dyspepsia
CPT/HCPCS: 99204

== ENCOUNTER → 2023-09-30 08:55 | Outpatient (BNVA) | payer OTHER, SELFPAY | PROVIDERS: PCP Family Medicine; Visit Provider Internal Medicine | DX: K30 Functional dyspepsia (principal); E11.65 Type 2 diabetes mellitus with hyperglycemia; Z79.899 Other long term (current) drug therapy | CPT/HCPCS: 99202 ==

== ENCOUNTER 2023-10-21 10:49 | Outpatient (AMB) | payer OTHER, SELFPAY ==
--- NOTE | 2023-10-21 11:32 | A.OFFVIS_ITS ---
VS Expanded 10/21/23 11:33 Height 5 ft 3 in Weight 196 lb 10.437 oz BMI 34.8 Intake Visit Reasons: T2DM w hyperglycemia/CONFIRMED Allergies sumatriptan [From IMITREX] Allergy (Severe, Verified 09/30/23 09:05) SYNCOPE Penicillins [PENICILLINS] Allergy (Intermediate, Verified 09/30/23 09:05) SHORTNESS OF BREATH penicillin V Allergy (Unknown, Verified 09/30/23 09:05) swelling, rash, pruritis topiramate [From TOPAMAX] Adverse Reaction (Severe, Verified 09/30/23 09:05) OVERDOSED Nutrition Presentation Details: Pt presents for MNT for T2DM. Pt was referred by Esperanza Cyr Pt reports doing well with meal planning in the past, needs reviview 5 am cafe 1 sugar and whole milk 11 am : burger/fries and soda regular 3pm coffee milk 5-6 pm rice/beans/chicken, water, fruits fish : not including fruits : october MEds: [id number] units am ozempic 1 mg glipizide 40 mg jardiance 10 mg BS Monitoring Most Recent Diabetes Results: Creatinine 0.90 mg/dL (0.5-1.4) 06/05/23 Blood Urea Nitrogen 9 mg/dL (9-16) 06/05/23 Sodium 143 mmol/L (135-145) 06/05/23 Potassium 3.8 mmol/L (3.3-5.1) 06/05/23 Chloride 111 mmol/L (96-108) H 06/05/23 Carbon Dioxide 26 mmol/L (22-29) 06/05/23 Calcium 9.3 mg/dL (8.4-10.2) 06/05/23 AST 13 U/L (5-31) 06/05/23 ALT 11 U/L (0-31) 06/05/23 Total Protein 6.5 g/dL (6.5-8.0) 06/05/23 Albumin 3.8 g/dL (3.5-5.0) 06/05/23 TNU-Vzmajwm-Jd.Jeor Equation Height: 5 ft 3 in Weight: 197 lb Resting Metabolic Rate: 1461.21 Calculated Activity Level: Sedentary Calories Needed to Maintain Weight: 1753.45 Diagnosis Nutrition problem #1: excessive energy intake As related to (etiology) #1: diagnosis As evidenced by (sign/symptom) #1: abnormal lab values [facility] Medical History Osteoarthritis (arthritis due to wear and tear of joints) Major depressive disorder PTSD (post-traumatic stress disorder) CAP (community acquired pneumonia) Fibromyalgia Asthma Chronic mixed headache syndrome Obstructive sleep apnea Diabetes Bipolar disorder Seronegative arthritis Surgical History Hx of colonoscopy Hx of cholecystectomy H/O shoulder surgery Family History Mother Arthritis Asthma Diabetes Social History Alcohol intake: former Patient Tobacco Use Status: Current everyday Tobacco user Cigarettes Per Day: 15 Years Smoked: 45 Assessment & Plan Assessment & Plan (1) Uncontrolled diabetes mellitus with hyperglycemia: Code(s): E11.65 - Type 2 diabetes mellitus with hyperglycemia Category: Medical Plan: Wt: 98 Kg (10/2023 ) Est kcal needs as per MSJ: 1800 (40% carb, 30% protein/fat) Est fluid needs as per 25-30 ml/d: 2900 Est prot per day as per 1 g/kg bw: 98 Recommend fiber intake : 8-10 g per day and gradually increase to 25-28 g per day for women and 35-38 g for men or as tolerated Recommend sodium intake per day : less than 2000 mg Educated patient on: ( R = reviewed V = verbalizes understanding N/R = needs review N/A = not applicable * Food sources of carbohydrate, adequate serving sizes and its role in various health conditions: R, V * Differences between complex carbohydrates a simple carbohydrates, role of fiber in diet: R * Lean protein sources of foods: R * Differences between types of fats and role in diet (mono on saturated fat fatty acids, saturated fatty acids, trans fats): R V N/R * Food sources of sodium in salt and healthy modifications for heart health in kidney health: R V R/V * Vitamins and minerals: R V N/R * Healthy plate method concept: R * Physical activity: Benefits a precaution: R V N/R * Hypoglycemia protocol (rule of 15): R V N/R * Dietary prevention of Hyperglycemia: R V R/V Patient Instructions: Work on reducing on sugars from empty calorie beverages (have water, herb/fruit infused water, dilute juice with water) Follow healthy plate method Coding Level of Care Code Nutr Indiv Intake (29445) Diagnoses Uncontrolled diabetes mellitus with hyperglycemia E11.65 Time Spent (min) 30
[2023-10-21 11:33] VITALS: BMI 34.8
[2023-10-29 10:04] VITALS: BMI 34.9
== END 2023-10-21 12:14 | disposition home or self-care (01) ==
PROVIDERS: PCP Family Medicine; Visit Provider Dietitian, Registered
DX: E11.65 Type 2 diabetes mellitus with hyperglycemia (principal)

== ENCOUNTER → 2023-10-21 10:49 | Outpatient (BNVA) | payer OTHER, SELFPAY | PROVIDERS: PCP Family Medicine; Visit Provider Dietitian, Registered | DX: E11.65 Type 2 diabetes mellitus with hyperglycemia (principal); Z90.49 Acquired absence of other specified parts of digestive tract; Z71.3 Dietary counseling and surveillance | CPT/HCPCS: 97802 ==

== ENCOUNTER 2023-11-18 10:08 | Outpatient (AMB) | payer OTHER, SELFPAY ==
[2023-11-18 10:40] VITALS: BMI 33.3
--- NOTE | 2023-11-18 10:40 | A.OFFVIS_ITS ---
VS Expanded 11/18/23 10:40 Height 5 ft 3 in Weight 188 lb 4.396 oz BMI 33.3 Intake Visit Reasons: T2DM/CONFIRMED Allergies sumatriptan [From IMITREX] Allergy (Severe, Verified 09/30/23 09:05) SYNCOPE Penicillins [PENICILLINS] Allergy (Intermediate, Verified 09/30/23 09:05) SHORTNESS OF BREATH penicillin V Allergy (Unknown, Verified 09/30/23 09:05) swelling, rash, pruritis topiramate [From TOPAMAX] Adverse Reaction (Severe, Verified 09/30/23 09:05) OVERDOSED Nutrition Presentation Details: Pt presents for MNT f/u for T2DM Pt reports doing well, working on meal planning, reducing on high fat foods, reports feeling comfortable Denies vomiting/diarrhea Reports meeting with natural resources extension educator at [facility] and reports glipizide was stopped due to multiple low blood sugar reactions, which lead to increased eating. Noted a significant 9 lbs weight loss in 1 month Pt brought glucometer. Fourteen day BG average at 130 mg/dL, 90% within target 9% with blood sugars between 180 and 250 and 1% blood sugars below 70 Patient reports treating low blood sugar by having juice and having a meal. Patient reports , low blood glucose has lessened since the glipizide was stopped about a week ago BS Monitoring Most Recent Diabetes Results: Creatinine 0.90 mg/dL (0.5-1.4) 06/05/23 Blood Urea Nitrogen 9 mg/dL (9-16) 06/05/23 Sodium 143 mmol/L (135-145) 06/05/23 Potassium 3.8 mmol/L (3.3-5.1) 06/05/23 Chloride 111 mmol/L (96-108) H 06/05/23 Carbon Dioxide 26 mmol/L (22-29) 06/05/23 Calcium 9.3 mg/dL (8.4-10.2) 06/05/23 AST 13 U/L (5-31) 06/05/23 ALT 11 U/L (0-31) 06/05/23 Total Protein 6.5 g/dL (6.5-8.0) 06/05/23 Albumin 3.8 g/dL (3.5-5.0) 06/05/23 [facility] Medical History Osteoarthritis (arthritis due to wear and tear of joints) Major depressive disorder PTSD (post-traumatic stress disorder) CAP (community acquired pneumonia) Fibromyalgia Asthma Chronic mixed headache syndrome Obstructive sleep apnea Diabetes Bipolar disorder Seronegative arthritis Surgical History Hx of colonoscopy Hx of cholecystectomy H/O shoulder surgery Family History Mother Arthritis Asthma Diabetes Social History Alcohol intake: former Patient Tobacco Use Status: Current everyday Tobacco user Cigarettes Per Day: 15 Years Smoked: 45 Assessment & Plan Assessment & Plan (1) Uncontrolled diabetes mellitus with hyperglycemia: Code(s): E11.65 - Type 2 diabetes mellitus with hyperglycemia Category: Medical Plan: Wt: 90 Kg (10/2023 ), 85.5 kg (11/2023) Est kcal needs as per MSJ: 1800 (40% carb, 30% protein/fat) Est fluid needs as per 25-30 ml/d: 2900 Est prot per day as per 1 g/kg bw: 98 Recommend fiber intake : 8-10 g per day and gradually increase to 25-28 g per day for women and 35-38 g for men or as tolerated Recommend sodium intake per day : less than 2000 mg Educated patient on: ( R = reviewed V = verbalizes understanding N/R = needs review N/A = not applicable * Food sources of carbohydrate, adequate serving sizes and its role in various health conditions: R, V * Differences between complex carbohydrates a simple carbohydrates, role of fiber in diet: R * Lean protein sources of foods: R , v * Differences between types of fats and role in diet (mono on saturated fat fatty acids, saturated fatty acids, trans fats): R V N/R * Food sources of sodium in salt and healthy modifications for heart health in kidney health: R V R/V * Vitamins and minerals: R V N/R * Healthy plate method concept: R * Physical activity: Benefits a precaution: R V N/R * Hypoglycemia protocol (rule of 15): R V * Dietary prevention of Hyperglycemia: R Patient Instructions: Continue owrking on having 3 small meals per day, chewing foods well, reducing on high fat foods (fried/fritters/chips and similar) , Eat a small amount of protein food first, moisten with broth if feeling full too fast, Have glucerna shake as snack Coding Level of Care Code Nutr Indiv Subseq (15603) Diagnoses Uncontrolled diabetes mellitus with hyperglycemia E11.65 Time Spent (min) 30
== END 2023-11-18 11:13 | disposition home or self-care (01) ==
PROVIDERS: PCP Family Medicine; Visit Provider Dietitian, Registered
DX: E11.65 Type 2 diabetes mellitus with hyperglycemia (principal)

== ENCOUNTER → 2023-11-18 10:08 | Outpatient (BNVA) | payer OTHER, SELFPAY | PROVIDERS: PCP Family Medicine; Visit Provider Dietitian, Registered | DX: E11.65 Type 2 diabetes mellitus with hyperglycemia (principal) | CPT/HCPCS: 97803 ==

== ENCOUNTER 2023-11-28 10:02 | Outpatient (REF) | payer OTHER, SELFPAY ==
[2023-11-28 10:11] LABS: MANUAL DIFF FLAG NO
[2023-11-28 10:37] LABS: Basophils Absolute Auto 0.1 X10*3/uL (0.0-0.2); Basophils Percent Auto 0.6 % (0-2); Eosinophils Absolute Auto 0.2 X10*3/uL (0.0-0.4); Eosinophils Percent Auto 1.9 % (0-4); Hematocrit 33.1 % (37.0-47.0); Hemoglobin 10.8 g/dl (12.0-16.0); Imm Gran Abs Auto 0.05 X10*3/uL (0.00-0.03); Imm Gran Pct Auto 0.5 % (0.0-0.4); Lymphocytes Absolute Auto 3.2 X10*3/uL (1.2-4.9); Mean Corpuscular HGB Conc 32.6 g/dl (31.0-35.0); Mean Corpuscular Hemoglobin 26.4 pg (27.0-33.0); Mean Corpuscular Volume 80.9 fL (80.0-98.0); Mean Platelet Volume 9.6 fL (9.4-12.3); Monocytes Absolute Auto 0.3 X10*3/uL (0.1-1.2); Monocytes Percent Auto 3.4 % (2-11); Neutrophils Absolute Auto 5.6 x10*3/uL (2.0-8.3); Neutrophils Percent Auto 59.6 % (45-73); Platelet Count 405 X10*3/uL (160-400); Red Blood Count 4.09 X10*6/uL (4.20-5.50); Red Cell Distribution Width 15.9 % (11.0-16.0); White Blood Count 9.5 X10*3/uL (4.8-10.8)
[2023-11-28 11:11] LABS: Alanine Aminotransferase 7 U/L (0-31); Albumin Level 3.7 g/dL (3.5-5.0); Alkaline Phosphatase 149 U/L (39-117); Anion Gap 12 (12-20); Aspartate Amino Transferase 9 U/L (5-31); Bilirubin Total 0.2 mg/dL (0.0-1.0); Blood Urea Nitrogen 12 mg/dL (9-16); C Reactive Protein 3.12 mg/dL (< or = 0.50); Calcium 9.3 mg/dL (8.4-10.2); Carbon Dioxide 26 mmol/L (22-29); Chloride 105 mmol/L (96-108); Estimated Glomerular Filt Rate > 60; Glucose Random 224 mg/dL (60-115); Potassium 3.8 mmol/L (3.3-5.1); Sodium 139 mmol/L (135-145); Total Protein 7.1 g/dL (6.5-8.0)
[2023-11-28 11:14] LABS: Erythrocyte Sedimentation Rate 62 MM/HR (0-20)
== END 2023-11-28 10:03 | disposition home or self-care (01) ==
LOC: HO.LAB 10:02
PROVIDERS: Visit Provider Nurse Practitioner Family
DX: M13.80 Other specified arthritis, unspecified site (principal); Z79.899 Other long term (current) drug therapy
CPT/HCPCS: 36415; 80053; 85025; 85652; 86140

== ENCOUNTER 2023-11-29 10:22 | Outpatient (AMB) | payer OTHER, SELFPAY ==
--- NOTE | 2023-11-29 10:34 | A.OFFVIS_ITS ---
Vital Signs 11/29/23 10:35 Height 5 ft 3 in Weight 188 lb BMI 33.3 Intake Visit Reasons: RA/cm Intake Note: Pt seen today for RA follow up. Reports bl knee pain and back pain. Qi Specialist Required: No Accompanied by: Son Allergies sumatriptan [From IMITREX] Allergy (Severe, Verified 11/29/23 10:43) SYNCOPE Penicillins [PENICILLINS] Allergy (Intermediate, Verified 11/29/23 10:43) SHORTNESS OF BREATH penicillin V Allergy (Unknown, Verified 11/29/23 10:43) swelling, rash, pruritis topiramate [From TOPAMAX] Adverse Reaction (Severe, Verified 11/29/23 10:43) OVERDOSED Medication List - Last Reconciled 11/29/23 by Hai Hernandez MD acetaminophen ER 650 mg PO Q6H PRN Actemra ACTPen (tocilizumab) 162 mg (0.9 mL) subcut QWEEK NS albuterol sulfate 90 mcg/actuation (Ventolin HFA) inhalation albuterol sulfate mg inhalation amitriptyline 2 tabs PO BEDTIME aripiprazole 20 mg PO DAILY atorvastatin (Lipitor) 10 mg PO DAILY baclofen 5 mg PO BID budesonide-formoterol 160-4.5 mcg/actuation (Symbicort) 2 puffs inhalation BID buspirone 15 mg PO TID calcium carbonate-vitamin D3 600 mg-10 mcg (400 unit) 1 tab PO BID cholecalciferol (vitamin D3) 50 mcg PO DAILY diclofenac sodium 1% 2 grams topical QID divalproex ER mg PO duloxetine 60 mg PO BID empagliflozin (Jardiance) 10 mg PO DAILY folic acid 1 mg PO QAM furosemide 80 mg PO DAILY gabapentin mg PO TID glipizide ER 10 mg PO DAILY insulin degludec (Tresiba FlexTouch U-200 insulin) units subcut leflunomide 10 mg PO QAM leg brace As directed :Use during day when active. DO not wear to bed lorazepam 0.5 mg PO DAILY PRN magnesium oxide 400 mg PO DAILY meclizine 25 mg PO BID PRN melatonin mg PO metformin 500 mg PO BID multivit-iron sulf-folic acid 15 mg iron- 400 mcg (Tab-A-Manjeet Multivitamin w- iron) tabs PO nystatin 1 appl topical BID omeprazole 40 mg PO BID oxybutynin chloride ER 1 tab PO QPM pen needle, diabetic (UltiCare Pen Needle) As directed quetiapine 300 mg PO ONCE riboflavin (vitamin B2) 100 mg PO ONCE semaglutide (Ozempic) mg subcut tiotropium bromide 2.5 mcg/actuation (Spiriva Respimat) 2 puffs inhalation DAILY tizanidine 2 mg PO BEDTIME umeclidinium 62.5 mcg/actuation (Incruse Ellipta) 1 puff inhalation DAILY HPI Comments Details: This is a 53-year-old female with seronegative RA who presents for follow-up. She is on Actemra weekly and leflunomide 10 mg daily. She states that she is compliant with her medications. She states that she had a flu earlier this month but she recovered. She states that she is having bilateral knee pain, worse on the left. She continues to have some pain in her hands, wrists, fingers. [facility] Medical History Osteoarthritis (arthritis due to wear and tear of joints) Major depressive disorder PTSD (post-traumatic stress disorder) CAP (community acquired pneumonia) Fibromyalgia Asthma Chronic mixed headache syndrome Obstructive sleep apnea Diabetes Bipolar disorder Seronegative arthritis Surgical History Hx of colonoscopy Hx of cholecystectomy H/O shoulder surgery Family History Mother Arthritis Asthma Diabetes Social History Alcohol intake: former Patient Tobacco Use Status: Current everyday Tobacco user Cigarettes Per Day: 15 Years Smoked: 45 Review of Systems [facility] [place] Reports arthralgias, Reports joint swelling and Reports stiffness Physical Exam Const General: cooperative, healthy appearing and comfortable Orientation/consciousness: patient oriented x3 Limitations: ambulation with cane HEENT Head: Yes normocephalic and Yes atraumatic Mouth: moist mucous membranes Resp Effort & Inspection: normal respiratory effort and able to speak in complete sentences Auscultation: rhonchi Cardio Rate: regular rate Rhythm: regular rhythm Skin General skin exam: no rashes or lesions noted Neuro General: patient oriented x3 Extrem Other: Puffiness of wrists, fingers. Bilateral wrist tenderness and pain with full flexion and extension Will tender flexor tendons bilaterally Multiple MCP tenderness Bilateral knee pain with range of motion Assessment & Plan Assessment & Plan (1) Seronegative arthritis: Comment: Plaquenil: September 2016- December 2016- hallucinations Methotrexate: December 2016- September 2021- concern for ILD Sulfasalazine: May 2017- high disease activity sulfasalazine added to methotrexate- self stopped Enbrel: July 2017 -denied by insurance Humira: August 2017 added to methotrexate- stopped September 2018- active disease Enbrel: September 2018- September2019 active disease Zeljanz: September 2019-November 2020 Actemra: 05/2023 Code(s): M13.80 - Other specified arthritis, unspecified site Category: Medical Plan: This is a 53-year-old female with seronegative RA who presents for follow-up. This is her 1st visit with me. She used to follow-up with Skylar White. She is on Actemra weekly and leflunomide 10 mg daily. On exam she continues to have few swollen and tender joints. 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
[2023-11-29 10:35] VITALS: BMI 33.3
== END 2023-11-29 11:07 | disposition home or self-care (01) ==
PROVIDERS: PCP Family Medicine; Visit Provider Student in an Organized Health Care Education/Training Program
DX: M13.80 Other specified arthritis, unspecified site (principal); Z79.899 Other long term (current) drug therapy
CPT/HCPCS: 99214

== ENCOUNTER → 2023-11-29 10:22 | Outpatient (BNVA) | payer OTHER, SELFPAY | PROVIDERS: PCP Family Medicine; Visit Provider Student in an Organized Health Care Education/Training Program | DX: M13.80 Other specified arthritis, unspecified site (principal); Z79.899 Other long term (current) drug therapy | CPT/HCPCS: 99212 ==

== ENCOUNTER 2023-12-18 10:53 | Outpatient (REF) | payer OTHER, SELFPAY | END 2023-12-18 10:54 | disposition home or self-care (01) | LOC: HO.MAMMO 10:53 | PROVIDERS: PCP Family Medicine; Visit Provider Family Medicine | DX: Z12.31 Encounter for screening mammogram for malignant neoplasm of breast (principal) | CPT/HCPCS: 77063; 77067 ==

== ENCOUNTER → 2023-12-18 11:30 | Outpatient (BNV) | payer OTHER, SELFPAY | PROVIDERS: PCP Family Medicine; Visit Provider Radiology Diagnostic Radiology | DX: Z12.31 Encounter for screening mammogram for malignant neoplasm of breast (principal) | CPT/HCPCS: 77063; 77067 ==

== ENCOUNTER 2024-01-20 08:50 | Outpatient (AMB) | payer OTHER, SELFPAY ==
--- NOTE | 2024-01-20 08:54 | A.OFFVIS_ITS ---
Vital Signs 01/20/24 08:56 Height 5 ft 3 in Weight 185 lb BMI 32.8 BP 130/72 Blood Pressure Location Lt brachial Position Sitting Pulse 94 Intake Visit Reasons: 4 month follow up late gastric emptying Intake Note: Ramona presents in the office as a 4 month follow up. CC: She is not having any concerns at this time. Here for results to her GES. Allergies sumatriptan [From IMITREX] Allergy (Severe, Verified 01/20/24 08:57) SYNCOPE Penicillins [PENICILLINS] Allergy (Intermediate, Verified 01/20/24 08:57) SHORTNESS OF BREATH penicillin V Allergy (Unknown, Verified 01/20/24 08:57) swelling, rash, pruritis topiramate [From TOPAMAX] Adverse Reaction (Severe, Verified 01/20/24 08:57) OVERDOSED HPI Comments Details: This is a 53y.o F with uncontrolled T2DM who is here for question of gastroparesis. History was obtained from the pt who notes significant postprandial discomfort with nausea and occasional vomiting. No unintentional weight loss in the last 6 months. GES 06/19/23 results reviewed 1 hour 97% (normal 37%-90%) 2 hours 77% (normal 30%-60%) 3 hours 56% 4 hours 44% (normal 0%-10%) From chart review appears pt had highly abnormal BG around that time - see notes from 06/24/23 that has documented BG >350 since 06/15/23. Pt has never had EGD. Last colo 2019. Adequate prep. Repeat due in 2025. 01/20/24: Here for follow up. Reports improvement in sx since improvement in her BG overall. Reports significant lifestyle and dietary changes. Reports previously was common to see sugars above 500 but now better control. Jt log reviewed most of the blood sugars are in fact still between 350-380. [facility] Medical History Osteoarthritis (arthritis due to wear and tear of joints) Major depressive disorder PTSD (post-traumatic stress disorder) CAP (community acquired pneumonia) Fibromyalgia Asthma Chronic mixed headache syndrome Obstructive sleep apnea Diabetes Bipolar disorder Seronegative arthritis Surgical History Hx of colonoscopy Hx of cholecystectomy H/O shoulder surgery Family History Mother Arthritis Asthma Diabetes Social History Alcohol intake: former Patient Tobacco Use Status: Current everyday Tobacco user Cigarettes Per Day: 15 Years Smoked: 45 Review of Systems Const All systems reviewed & are unremarkable except as noted in HPI and below Physical Exam Vital Signs: Last Vital Signs Pulse 94 01/20/24 08:56 BP 130/72 01/20/24 08:56 BMI result Body Mass Index 32.8 No apparent distress Nonicteric Abdomen soft, nondistended Alert and oriented x3, normal gait Assessment & Plan Assessment & Plan (1) Uncontrolled diabetes mellitus with hyperglycemia: Code(s): E11.65 - Type 2 diabetes mellitus with hyperglycemia Category: Medical (2) Delayed gastric emptying: Code(s): K30 - Functional dyspepsia Category: Medical Plan Reports symptomatic improvement in abd sx including discomfort, N,V which correlates with improvement in blood sugars. Reviewed with the pt that still more room to go and would like to see her BG <250 at the very least. Pt is not established with an gum cook and interested in discussing optimization of DM management. Will request referral. From GI standpoint, as previously mentioned delayed gastric emptying noted on G ES 06/2023 was likely in the setting of uncontrolled BG. Per protocol, GES should NOT be performed until BG <180 have been established. Anticipate further resolution of sx as better glycemic control is achieved. Plan: - Endocrine referral placed - Goal BG at least <250 postprandial - and can discuss eventual goal of <180 with PCP/endocrine - Try to keep >60% of intake in liquid form - Stay upright for at least 60-90 mins post meals - Cont PPI for now as with delayed gastric emptying may be predisposed to reflux - No red flags to warrant urgent EGD at this time - Pt is being discharged back to PCP's care. She was encouraged to call us for any questions or concerns that may arise in the future. CRC screening due in 2025. Pt aware. Orders: Referrals Endocrinology Referral E11.65 - Type 2 diabetes mellitus with hyperglycemia Coding Level of Care Code Est Pt Level 4 (07400) Diagnoses Uncontrolled diabetes mellitus with hyperglycemia E11.65 Delayed gastric emptying K30
[2024-01-20 08:56] VITALS: BP 130/72; PULSE 94; BMI 32.8
== END 2024-01-20 10:10 | disposition home or self-care (01) ==
PROVIDERS: PCP Family Medicine; Visit Provider Internal Medicine
DX: E11.65 Type 2 diabetes mellitus with hyperglycemia (principal); K30 Functional dyspepsia
CPT/HCPCS: 99214

== ENCOUNTER → 2024-01-20 08:50 | Outpatient (BNVA) | payer OTHER, SELFPAY | PROVIDERS: PCP Family Medicine; Visit Provider Internal Medicine | DX: E11.65 Type 2 diabetes mellitus with hyperglycemia (principal); K30 Functional dyspepsia; Z71.3 Dietary counseling and surveillance | CPT/HCPCS: 97803; 99212 ==

== ENCOUNTER 2024-01-20 10:29 | Outpatient (AMB) | payer OTHER, SELFPAY ==
--- NOTE | 2024-01-20 11:24 | A.OFFVIS_ITS ---
VS Expanded 01/20/24 11:47 Height 5 ft 3 in Weight 185 lb 2.2 oz BMI 32.8 Intake Visit Reasons: T2DM/LVM Allergies sumatriptan [From IMITREX] Allergy (Severe, Verified 01/20/24 08:57) SYNCOPE Penicillins [PENICILLINS] Allergy (Intermediate, Verified 01/20/24 08:57) SHORTNESS OF BREATH penicillin V Allergy (Unknown, Verified 01/20/24 08:57) swelling, rash, pruritis topiramate [From TOPAMAX] Adverse Reaction (Severe, Verified 01/20/24 08:57) OVERDOSED Nutrition Presentation Details: Pt present for MNT f/u for T2DM, uncontrolled. Pt presents with son during this appt. Pt admits to increasing on sugary foods/snacks /beverages. Per BG record only 10 % of BG within limits (in 01/2024), from 90 % within normal limits in 11/2023) BS Monitoring Most Recent Diabetes Results: Creatinine 0.90 mg/dL (0.5-1.4) 11/28/23 Blood Urea Nitrogen 12 mg/dL (9-16) 11/28/23 Sodium 139 mmol/L (135-145) 11/28/23 Potassium 3.8 mmol/L (3.3-5.1) 11/28/23 Chloride 105 mmol/L (96-108) 11/28/23 Carbon Dioxide 26 mmol/L (22-29) 11/28/23 Calcium 9.3 mg/dL (8.4-10.2) 11/28/23 AST 9 U/L (5-31) 11/28/23 ALT 7 U/L (0-31) 11/28/23 Total Protein 7.1 g/dL (6.5-8.0) 11/28/23 Albumin 3.7 g/dL (3.5-5.0) 11/28/23 [facility] Medical History Osteoarthritis (arthritis due to wear and tear of joints) Major depressive disorder PTSD (post-traumatic stress disorder) CAP (community acquired pneumonia) Fibromyalgia Asthma Chronic mixed headache syndrome Obstructive sleep apnea Diabetes Bipolar disorder Seronegative arthritis Surgical History Hx of colonoscopy Hx of cholecystectomy H/O shoulder surgery Family History Mother Arthritis Asthma Diabetes Social History Alcohol intake: former Patient Tobacco Use Status: Current everyday Tobacco user Cigarettes Per Day: 15 Years Smoked: 45 Assessment & Plan Assessment & Plan (1) Uncontrolled diabetes mellitus with hyperglycemia: Code(s): E11.65 - Type 2 diabetes mellitus with hyperglycemia Category: Medical Plan: Wt: 90 Kg (10/2023 ), 85.5 kg (11/2023), 84 kg 01/2024) Est kcal needs as per MSJ: 1800 (40% carb, 30% protein/fat) Est fluid needs as per 25-30 ml/d: 2900 Est prot per day as per 1 g/kg bw: 98 Recommend fiber intake : 8-10 g per day and gradually increase to 25-28 g per day for women and 35-38 g for men or as tolerated Recommend sodium intake per day : less than 2000 mg Educated patient on: ( R = reviewed V = verbalizes understanding N/R = needs review N/A = not applicable * Food sources of carbohydrate, adequate serving sizes and its role in various health conditions: R, V * Differences between complex carbohydrates a simple carbohydrates, role of fiber in diet: R * Lean protein sources of foods: R , v * Differences between types of fats and role in diet (mono on saturated fat f atty acids, saturated fatty acids, trans fats): R V N/R * Food sources of sodium in salt and healthy modifications for heart health in kidney health: R V R/V * Vitamins and minerals: R V N/R * Healthy plate method concept: R * Physical activity: Benefits a precaution: R V N/R * benefits of glucose control: R * Hypoglycemia protocol (rule of 15): R V * Dietary prevention of Hyperglycemia: R Patient Instructions: Resume working on having water in place of soda/sugary beverages Follow healthy plate method at dinner Take all your medications as prescribed by your doctor Coding Level of Care Code Nutr Indiv Subseq (82624) Diagnoses Uncontrolled diabetes mellitus with hyperglycemia E11.65 Time Spent (min) 30
[2024-01-20 11:47] VITALS: BMI 32.8
== END 2024-01-20 11:45 | disposition home or self-care (01) ==
PROVIDERS: PCP Family Medicine; Visit Provider Dietitian, Registered
DX: E11.65 Type 2 diabetes mellitus with hyperglycemia (principal)

== ENCOUNTER 2024-02-24 10:01 | Outpatient (AMB) | payer OTHER, SELFPAY ==
--- NOTE | 2024-02-24 10:10 | A.OFFVIS_ITS ---
VS Expanded 02/24/24 10:11 Height 5 ft 3 in Weight 187 lb 9.814 oz BMI 33.2 Intake Visit Reasons: T2DM/CONFIRMED Allergies sumatriptan [From IMITREX] Allergy (Severe, Verified 01/20/24 08:57) SYNCOPE Penicillins [PENICILLINS] Allergy (Intermediate, Verified 01/20/24 08:57) SHORTNESS OF BREATH penicillin V Allergy (Unknown, Verified 01/20/24 08:57) swelling, rash, pruritis topiramate [From TOPAMAX] Adverse Reaction (Severe, Verified 01/20/24 08:57) OVERDOSED Nutrition Presentation Details: Pt presents for MNT f/u for t2DM Pt reports working with certified lactation educator at [facility] and dm med and now is on Humalog 10 units twice a day (before breakfast and before dinner) likes pickles reports having coffee 3-4 x/day on weeks and more on weekends Pt reports snacking on fruits and crackers, reports not including protein in the meals Physical activity : sedentary BS Monitoring Most Recent Diabetes Results: Creatinine 0.90 mg/dL (0.5-1.4) 11/28/23 Blood Urea Nitrogen 12 mg/dL (9-16) 11/28/23 Sodium 139 mmol/L (135-145) 11/28/23 Potassium 3.8 mmol/L (3.3-5.1) 11/28/23 Chloride 105 mmol/L (96-108) 11/28/23 Carbon Dioxide 26 mmol/L (22-29) 11/28/23 Calcium 9.3 mg/dL (8.4-10.2) 11/28/23 AST 9 U/L (5-31) 11/28/23 ALT 7 U/L (0-31) 11/28/23 Total Protein 7.1 g/dL (6.5-8.0) 11/28/23 Albumin 3.7 g/dL (3.5-5.0) 11/28/23 [facility] Medical History Osteoarthritis (arthritis due to wear and tear of joints) Major depressive disorder PTSD (post-traumatic stress disorder) CAP (community acquired pneumonia) Fibromyalgia Asthma Chronic mixed headache syndrome Obstructive sleep apnea Diabetes Bipolar disorder Seronegative arthritis Surgical History Hx of colonoscopy Hx of cholecystectomy H/O shoulder surgery Family History Mother Arthritis Asthma Diabetes Social History Alcohol intake: former Patient Tobacco Use Status: Current everyday Tobacco user Cigarettes Per Day: 15 Years Smoked: 45 Assessment & Plan Assessment & Plan (1) Uncontrolled diabetes mellitus with hyperglycemia: Code(s): E11.65 - Type 2 diabetes mellitus with hyperglycemia Category: Medical Plan: Wt: 90 Kg (10/2023 ), 85.5 kg (11/2023), 84 kg 01/2024), 85 kg (02/23) Est kcal needs as per MSJ: 1800 (40% carb, 30% protein/fat) Est fluid needs as per 25-30 ml/d: 2900 Est prot per day as per 1 g/kg bw: 98 Recommend fiber intake : 8-10 g per day and gradually increase to 25-28 g per day for women and 35-38 g for men or as tolerated Recommend sodium intake per day : less than 2000 mg Educated patient on: ( R = reviewed V = verbalizes understanding N/R = needs review N/A = not applicable * Food sources of carbohydrate, adequate serving sizes and its role in various health conditions: R, V * Differences between complex carbohydrates a simple carbohydrates, role of fiber in diet: R * Lean protein sources of foods: R , v * Differences between types of fats and role in diet (mono on saturated fat fatty acids, saturated fatty acids, trans fats): R V N/R * Food sources of sodium in salt and healthy modifications for heart health in kidney health: R V R/V * Vitamins and minerals: R V N/R * Healthy plate method concept: R * Physical activity: Benefits a precaution: R V N/R * benefits of glucose control: R * Hypoglycemia protocol (rule of 15): R V * Dietary prevention of Hyperglycemia: R Patient Instructions: Reduce on coffee to 2 a day use alternative to add flavor to coffee with less sugar (cinnamon /nutmeg, extracts) Snack on carrots , cucumbers (pickled ok) reducing on fruits as these have sugar as well. Coding Level of Care Code Nutr Indiv Subseq ([id number]) Diagnoses Uncontrolled diabetes mellitus with hyperglycemia E11.65 Time Spent (min) 30
[2024-02-24 10:11] VITALS: BMI 33.2
== END 2024-02-24 10:51 | disposition home or self-care (01) ==
PROVIDERS: PCP Family Medicine; Visit Provider Dietitian, Registered
DX: E11.65 Type 2 diabetes mellitus with hyperglycemia (principal)

== ENCOUNTER → 2024-02-24 10:01 | Outpatient (BNVA) | payer OTHER, SELFPAY | PROVIDERS: PCP Family Medicine; Visit Provider Dietitian, Registered | DX: E11.65 Type 2 diabetes mellitus with hyperglycemia (principal); E66.09 Other obesity due to excess calories; Z68.33 Body mass index [BMI] 33.0-33.9, adult; Z79.4 Long term (current) use of insulin; Z71.3 Dietary counseling and surveillance | CPT/HCPCS: 97803 ==

== ENCOUNTER 2024-03-31 09:46 | Outpatient (AMB) | payer OTHER, SELFPAY ==
[2024-03-31 10:13] VITALS: BMI 32.9
--- NOTE | 2024-03-31 10:13 | A.OFFVIS_ITS ---
VS Expanded 03/31/24 10:13 Height 5 ft 3 in Weight 185 lb 10.067 oz BMI 32.9 Intake Visit Reasons: T2DM/CONFIRMED Allergies sumatriptan [From IMITREX] Allergy (Severe, Verified 01/20/24 08:57) SYNCOPE Penicillins [PENICILLINS] Allergy (Intermediate, Verified 01/20/24 08:57) SHORTNESS OF BREATH penicillin V Allergy (Unknown, Verified 01/20/24 08:57) swelling, rash, pruritis topiramate [From TOPAMAX] Adverse Reaction (Severe, Verified 01/20/24 08:57) OVERDOSED Nutrition Presentation Details: Pt presents for MNT F/u for T2DM. Pt is accompanied by her son Pt reports not taking her DM meds, has skipped humalog these pasts 2 weeks, may eat out and does not carry insulin with her. Pt reports choosing juices and beverages with sugars due to increased thirst. Today we reviewed importance of carrying insulin and taking it as prescribed by the doctor, discussed signs and symptoms and acute and chronic complications of high blood glucose. Pt verbalized understanding it. Discussed with Pt that Thirst is a sign of high blood sugar, a consequence of choosing high sugar beverages and omitting diabetes medications. Pt was advised to keep hydrated by choosing liquids with no sugar - in the past was having crystal light but has stopped. Pt was advised to resume having crystal light as main -no sugar beverage and must resume taking diabetes medications as prescribed by the doctor for glucose control 24 hr food recall B: slice of peanut butter and coffee with milk and sugar - did not take humalog Lunch: rice/chicken, juice 6 pm bowl of cinnamon toast crunch cereal with 2%milk, water DM meds: Pt reports she is on Tresiba 62 units last night Reports should be on humalog 14 units twice a day - skips them Pt reports she is no longer on ozempic Pt had appt with PCP today but switched it to 04/07/2024 , Per glucose sensor : 14 d bg average at 357 mg/dl . Pt admits elevated bg due to lack of adherence to diet and medications BS Monitoring Most Recent Diabetes Results: Creatinine 0.90 mg/dL (0.5-1.4) 11/28/23 Blood Urea Nitrogen 12 mg/dL (9-16) 11/28/23 Sodium 139 mmol/L (135-145) 11/28/23 Potassium 3.8 mmol/L (3.3-5.1) 11/28/23 Chloride 105 mmol/L (96-108) 11/28/23 Carbon Dioxide 26 mmol/L (22-29) 11/28/23 Calcium 9.3 mg/dL (8.4-10.2) 11/28/23 AST 9 U/L (5-31) 11/28/23 ALT 7 U/L (0-31) 11/28/23 Total Protein 7.1 g/dL (6.5-8.0) 11/28/23 Albumin 3.7 g/dL (3.5-5.0) 11/28/23 PFSH Medical History Osteoarthritis (arthritis due to wear and tear of joints) Major depressive disorder PTSD (post-traumatic stress disorder) CAP (community acquired pneumonia) Fibromyalgia Asthma Chronic mixed headache syndrome Obstructive sleep apnea Diabetes Bipolar disorder Seronegative arthritis Surgical History Hx of colonoscopy Hx of cholecystectomy H/O shoulder surgery Family History Mother Arthritis Asthma Diabetes Social History Alcohol intake: former Patient Tobacco Use Status: Current everyday Tobacco user Cigarettes Per Day: 15 Years Smoked: 45 Assessment & Plan Assessment & Plan (1) Uncontrolled diabetes mellitus with hyperglycemia: Code(s): E11.65 - Type 2 diabetes mellitus with hyperglycemia Category: Medical Plan: Wt: 90 Kg (10/2023 ), 85.5 kg (11/2023), 84 kg 01/2024), 85 kg (02/23), 84 kg (03/26) Est kcal needs as per MSJ: 1800 (40% carb, 30% protein/fat) Est fluid needs as per 25-30 ml/d: 2900 Est prot per day as per 1 g/kg bw: 98 Recommend fiber intake : 8-10 g per day and gradually increase to 25-28 g per day for women and 35-38 g for men or as tolerated Recommend sodium intake per day : less than 2000 mg Educated patient on: ( R = reviewed V = verbalizes understanding N/R = needs review N/A = not applicable * Food sources of carbohydrate, adequate serving sizes and its role in various health conditions: R, V * Differences between complex carbohydrates a simple carbohydrates, role of fiber in diet: R * Lean protein sources of foods: R , v * Differences between types of fats and role in diet (mono on saturated fat fatty acids, saturated fatty acids, trans fats): R V N/R * Food sources of sodium in salt and healthy modifications for heart health in kidney health: R V R/V * Vitamins and minerals: R V N/R * Healthy plate method concept: R * Physical activity: Benefits a precaution: R V N/R * benefits of glucose control: R * Hypoglycemia protocol (rule of 15): R V * Dietary prevention of Hyperglycemia: R * Meal planning: R,V * Ok to keep daily insulin at room temperature, carry with it an take as prescribed by your doctor. Tresiba can last 56 days at room temperature, and Humalog 28 days at room temperature: R * Acute and chronic conditions related to hyperglycemia: R * Joining adult quality care program like [facility]: Reviewed, Pt reported not interested at this time * Signs and symptoms of hyperglycemia, : R * Hydration : R * Patient Instructions: * Must take humalog before the meals as prescribed by your doctor (carry with it in case you have a meal away from home) * Choose beverages without sugar ( tea, crystal light ) * Have a sandwich (tuna or ham/cheese or chicken salad, eggs tomato, avocado) for lower carbohydrate/higher protein meal at 6 pm Coding Level of Care Code Nutr Indiv Subseq (88764) Diagnoses Uncontrolled diabetes mellitus with hyperglycemia E11.65 Time Spent (min) 30
== END 2024-03-31 10:42 | disposition home or self-care (01) ==
LOC: HO.ENCR 09:47
PROVIDERS: PCP Family Medicine; Visit Provider Dietitian, Registered
DX: E11.65 Type 2 diabetes mellitus with hyperglycemia (principal)

== ENCOUNTER → 2024-03-31 09:46 | Outpatient (BNVA) | payer OTHER, SELFPAY | PROVIDERS: PCP Family Medicine; Visit Provider Dietitian, Registered | DX: E11.65 Type 2 diabetes mellitus with hyperglycemia (principal); Z71.3 Dietary counseling and surveillance; Z79.4 Long term (current) use of insulin | CPT/HCPCS: 97803 ==

== ENCOUNTER 2024-05-06 09:39 | Outpatient (AMB) | payer OTHER, SELFPAY ==
--- NOTE | 2024-05-06 09:42 | A.OFFVIS_ITS ---
Vital Signs 05/06/24 09:48 Height 5 ft 3 in Weight 177 lb 0.499 oz BMI 31.4 BP 132/70 Blood Pressure Location Lt brachial Position Sitting Respiration 16 Pulse 97 Pulse Source Pulse Oximeter Pulse Oximetry (%) 98 Oxygen Delivery Method Room Air Intake Visit Reasons: RA/cm Intake Note: Patient presents for RA. Dental Assistant Medical Assistant Required: Yes Dental Assistant Medical Assistant Language: Caustic Room Attendant Services: Dental Assistant Medical Assistant Offered & Declined Dental Assistant Medical Assistant Name: Baljinder Montalvo Information Interpreted: non-clinical & clinical Assisted Living Housekeeper: Assisted Living Housekeeper Present (Baljinder Montalvo) Accompanied by: Son Allergies sumatriptan [From IMITREX] Allergy (Severe, Verified 05/06/24 09:48) SYNCOPE Penicillins [PENICILLINS] Allergy (Intermediate, Verified 05/06/24 09:48) SHORTNESS OF BREATH penicillin V Allergy (Unknown, Verified 05/06/24 09:48) swelling, rash, pruritis topiramate [From TOPAMAX] Adverse Reaction (Severe, Verified 05/06/24 09:48) OVERDOSED Medication List - Last Reconciled 05/06/24 by Hai Hernandez MD acetaminophen ER 650 mg PO Q6H PRN albuterol sulfate 90 mcg/actuation (Ventolin HFA) inhalation albuterol sulfate mg inhalation amitriptyline 2 tabs PO BEDTIME aripiprazole 20 mg PO DAILY atorvastatin (Lipitor) 10 mg PO DAILY baclofen 5 mg PO BID budesonide-formoterol 160-4.5 mcg/actuation (Symbicort) 2 puffs inhalation BID buspirone 15 mg PO TID calcium carbonate-vitamin D3 600 mg-10 mcg (400 unit) 1 tab PO BID diclofenac sodium 1% 2 grams topical QID divalproex ER mg PO duloxetine 60 mg PO BID empagliflozin (Jardiance) 25 mg PO DAILY flash glucose sensor (FreeStyle Jt 2 Sensor kit) As directed folic acid 1 mg PO QAM furosemide 80 mg PO DAILY gabapentin mg PO TID glipizide ER 10 mg PO DAILY insulin degludec (Tresiba FlexTouch U-200 insulin) units subcut leflunomide 20 mg PO DAILY leg brace As directed :Use during day when active. DO not wear to bed lorazepam 0.5 mg PO DAILY PRN magnesium oxide 400 mg PO DAILY meclizine 25 mg PO BID PRN melatonin mg PO metformin 500 mg PO BID multivit-iron sulf-folic acid 15 mg iron- 400 mcg (Tab-A-Manjeet Multivitamin w- iron) tabs PO nystatin 1 appl topical BID omeprazole 40 mg PO BID oxybutynin chloride ER 1 tab PO QPM pen needle, diabetic (UltiCare Pen Needle) As directed polyethylene glycol 3350 17 grams PO DAILY quetiapine 200 mg PO BEDTIME riboflavin (vitamin B2) 100 mg PO ONCE semaglutide (Ozempic) mg subcut sodium chloride 0.65% (Deep Sea Nasal) sprays intranasal tiotropium bromide 2.5 mcg/actuation (Spiriva Respimat) 2 puffs inhalation DAILY tizanidine 2 mg PO BEDTIME umeclidinium 62.5 mcg/actuation (Incruse Ellipta) 1 puff inhalation DAILY HPI Comments Details: This is a 54-year-old female with seronegative RA who presents for follow-up. She is on Actemra weekly and leflunomide 20 mg daily. She states that she is compliant with her medications. She states that she had a flu earlier this month but she recovered. She states that she is having bilateral knee pain, worse on the left. She continues to have some pain in her hands, wrists, fingers. [facility] Medical History Osteoarthritis (arthritis due to wear and tear of joints) Major depressive disorder PTSD (post-traumatic stress disorder) CAP (community acquired pneumonia) Fibromyalgia Asthma Chronic mixed headache syndrome Obstructive sleep apnea Diabetes Bipolar disorder Seronegative arthritis Surgical History Hx of colonoscopy Hx of cholecystectomy H/O shoulder surgery Family History Mother Arthritis Asthma Diabetes Social History Alcohol intake: former Patient Tobacco Use Status: Current everyday Tobacco user Cigarettes Per Day: 15 Years Smoked: 45 Review of Systems [facility] Reports arthralgias, Reports joint swelling and Reports stiffness Physical Exam Vital Signs: Last Vital Signs Pulse 97 05/06/24 09:48 Resp 16 05/06/24 09:48 BP 132/70 05/06/24 09:48 Pulse Ox 98 05/06/24 09:48 Oxygen Delivery Method Room Air 05/06/24 09:48 BMI result Body Mass Index 31.4 Const General: cooperative, healthy appearing and comfortable Orientation/consciousness: patient oriented x3 Limitations: ambulation with cane HEENT Head: Yes normocephalic and Yes atraumatic Mouth: moist mucous membranes Resp Effort & Inspection: normal respiratory effort and able to speak in complete sentences Auscultation: rhonchi Cardio Rate: regular rate Rhythm: regular rhythm Skin General skin exam: no rashes or lesions noted Neuro General: patient oriented x3 Extrem Other: Puffiness of wrists, fingers. Bilateral wrist tenderness and pain with full flexion and extension Will tender flexor tendons bilaterally Multiple MCP tenderness Bilateral finger clubbing Bilateral knee pain with range of motion more prominent on the left Assessment & Plan Assessment & Plan (1) Seronegative arthritis: Comment: Plaquenil: September 2016- December 2016- hallucinations Methotrexate: December 2016- September 2021- concern for ILD Sulfasalazine: May 2017- high disease activity sulfasalazine added to methotrexate- self stopped Enbrel: July 2017 -denied by insurance Humira: August 2017 added to methotrexate- stopped September 2018- active disease Enbrel: September 2018- September2019 active disease Xeljanz: September 2019-November 2020 Actemra: 05/2023 Code(s): M13.80 - Other specified arthritis, unspecified site Category: Medical Plan: This is a 54-year-old female with seronegative RA who presents for follow-up. She is on Actemra subQ injection weekly and leflunomide 20 mg daily. She claims compliance. Her inflammatory markers however have remained elevated. She continues to have active synovitis. Switch Actemra to IV infusion. Start prior authorization for Actemra infusions Continue leflunomide 20 mg daily Labs today and before next visit in 3 months (2) High risk medication use: Code(s): Z79.899 - Other skilled nursing (current) drug therapy Category: Medical Plan: Monitor safety labs for leflunomide Side effects of Actemra were discussed with the patient in detail including increased risk of infection, demyelinating disease, reactivation of latent TB, possible increased risk of solid and skin tumors. Patient fully aware. Advised patient to seek medical care VIJAY if patient has an infection and advised patient to stop the medication until the infection is resolved. (3) Tobacco abuse counseling: Code(s): Z71.6 - Tobacco abuse counseling Category: Medical Plan: Discussed various health effects of smoking including cardiovascular diseases, increased risk of cancer in, bronchitis as well as increased rheumatoid arthritis disease activity. Advised patient to quit Plan I spent 30 minutes reviewing patient's chart, evaluating patient, ordering diagnostic workup, counseling patient and documenting in the chart Orders: Orders C Reactive Protein 3 Months M13.80 - Other specified arthritis, unspecified site Hepatitis A,B,C Profile Today Z11.59 - Encounter for screening for other viral diseases T Spot TB Today Z11.7 - Encounter for testing for latent tuberculosis infection Complete Blood Count Auto Diff 3 Months M13.80 - Other specified arthritis, unspecified site Comprehensive Met. Panel 3 Months M13.80 - Other specified arthritis, unspecified site Erythrocyte Sedimentation Rate 3 Months M13.80 - Other specified arthritis, unspecified site Medications: Discontinued Actemra ACTPen (tocilizumab) Discontinued Reason: Doctor's Order 162 mg (0.9 mL) subcut QWEEK 3.6 mL 2RF NS M13.80 - Other specified arthritis, unspecified site Coding Level of Care Code Est Pt Level 4 (62301) Complex EM visit Add On G2211 Diagnoses Seronegative arthritis M13.80 High risk medication use Z79.899 Tobacco abuse counseling Z71.6
[2024-05-06 09:48] VITALS: BP 132/70; PULSE 97; RESP 16; O2SAT 98; BMI 31.4
--- OUTSIDE RECORDS SUMMARY | 2024-05-12 17:15 | XMS_ITS ---
Author Organization [facility] Address [address] [place] [address] Care Team Providers Care Donor Relations Associate Name Role Phone Isabel Lewis Primary Care Provider Unavaila ble Clinical, Operations Unavailable Unavailable REASON FOR VISIT MDS assessment MEDICATIONS Medication SIG (Take, Route, Frequency, Duration) Notes Start Date End Date Status Amitriptyline HCl 10 MG 1 Tablet Orally Twice a Day Active metFORMIN HCl 500 MG 2 tablet with a armin l Orally Twice a Day Active Symbicort 160-4.5 MCG/ACT 2 puffs Inhala tion Twice a day Active glipiZIDE XL 10 MG 1 tablet with breakf ast Orally Once a day Active ARIPiprazole 20 MG 1 tablet Orally Once a day Active Divalproex Sodium 500 MG 1 tablet Orally Twice a Day Active DULoxetine HCl 60 MG 1 capsule Orally On ce a day Active QUEtiapine Fumarate 200 MG 1 tablet at b edtime Orally Once a day Active Omeprazole 20 MG 1 capsule 30 minutes before morning meal Orally Twice a Day Active busPIRone HCl 15 MG 1 tablet Orally Thre e Times a Day - PRN Active Calcium Carbonate 1500 (600 Ca) MG 1 tablet with food Orally Twice a day Active Leflunomide 10 MG 1 tablet Orally Once a day Active Magnesium Oxide 400 MG 1 tablet as neede d Orally Once a day Active Vitamin D3 50 MCG (1999 UT) 1 tablet Ora lly Once a day Active Melatonin 5 MG 1-2 tablets in the evening Orally Once a day Active oxyBUTYnin Chloride ER 5 MG 1 tablet Ora lly Once a day Active Riboflavin 100 MG 1 tablet Orally Once a day Active Baclofen 5 MG 1 tablet as needed O rally Three times a day Active Atorvastatin Calcium 10 MG 1 tablet Oral ly Once a day Active Trulicity 1.5 MG/0.5ML 0.5 ML Subcutaneo us Once Weekly - on Saturday Active Gabapentin 300 MG 2 capsules Orally Th ree TImes a Day Active Furosemide 80 MG 1 tablet Orally Once a day Active PROBLEMS Problem Type ICD Code Onset Dates Problem Status W/U Status Risk SNOMED Code Notes Problem Fatty liver (K76.0) Active confirmed 19 [id number] Problem Urinary incontinence, unspecified type (R32) Active confirmed 902399156 Problem COVID-19 (U07.1) Active confirmed 14783 9006 Problem Other chronic pain (G89.29) Active confirmed 02195143 Problem Age-related nuclear cataract, bilateral (H25.13) Active confirmed [id number] Problem Gastroesophageal reflux disease without esophagitis (K21.9) Active confirmed 752237809 Problem Bipolar affective disorder, remission status unspecified (F31.9) Active confirmed [id number] Encounters Encounter Location Date Provider Diagnosis [address] [address] 09/12/2023 Operations Clinical COPD (chronic obstructive pulmonary disease) J44.9 ; Asthma J45.909 ; Hypertension I10 ; Type 2 diabetes mellitus E11.9 ; Migraines G43.909 ; Dizziness R42 ; Rheumatoid arthritis M06.9 ; Osteoarthritis M19.90 ; Fibromyalgia M79.7 ; Lumbago with sciatica, left side M54.42 ; Arthralgia M25.50 ; Sleep apnea G47.30 ; Cognitive impairment R41.89 ; Memory loss R41.3 ; Other malaise R53.81 ; Anxiety disorder F41.9 ; Post traumatic stress disorder F43.10 ; Major depression, recurrent F33.9 ; Severe persistent asthma, unspecified whether complicated J45.50 ; Fatty liver K76.0 ; Urinary incontinence, unspecified type R32 ; COVID-19 U07.1 ; Other chronic pain G89.29 ; Age-related nuclear cataract, bilateral H25.13 ; Gastroesophageal reflux disease without esophagitis K21.9 and Bipolar affective disorder, remission status unspecified F31.9 ASSESSMENTS Encounter Date Diagnosis Assessment Notes Treatment Notes Treatment Clinical Notes 09/12/2023 COPD (chronic obstructive pulmonary disease) (ICD-10 - J44.9) 09/12/2023 Asthma (ICD-10 - J45.909) 09/12/2023 Hypertension (ICD-10 - I10) 09/12/2023 Type 2 diabetes mellitus (ICD-10 - E11.9) 09/12/2023 Migraines (ICD-10 - G43.909) 09/12/2023 Dizziness (ICD-10 - R42) 09/12/2023 Rheumatoid arthritis (ICD-10 - M06.9) 09/12/2023 Osteoarthritis (ICD- 10 - M19.90) 09/12/2023 Fibromyalgia (ICD-10 - M79.7) 09/12/2023 Lumbago with sciatic a, left side (ICD-10 - M54.42) 09/12/2023 Arthralgia (ICD-10 - M25.50) 09/12/2023 Sleep apnea (ICD-10 - G47.30) 09/12/2023 Cognitive impairment (ICD-10 - R41.89) 09/12/2023 Memory loss (ICD-10 - R41.3) 09/12/2023 Other malaise (ICD-1 0 - R53.81) 09/12/2023 Anxiety disorder (ICD-10 - F41.9) 09/12/2023 Post traumatic stres s disorder (ICD-10 - F43.10) 09/12/2023 Major depression, recurrent (ICD-10 - F33.9) 09/12/2023 Severe persistent asthma, unspecified whether complicated (ICD-10 - J45.50) 09/12/2023 Fatty liver (ICD-10 - K76.0) 09/12/2023 Urinary incontinence , unspecified type (ICD-10 - R32) 09/12/2023 COVID-19 (ICD-10 - U07.1) 09/12/2023 Other chronic pain (ICD-10 - G89.29) 09/12/2023 Age-related nuclear cataract, bilateral (ICD-10 - H25.13) 09/12/2023 Gastroesophageal ref lux disease without esophagitis (ICD-10 - K21.9) 09/12/2023 Bipolar affective disorder, remission status unspecified (ICD-10 - F31.9) PLAN OF TREATMENT No Information
--- OUTSIDE RECORDS SUMMARY | 2024-05-12 17:15 | XMS_ITS | Data Portability ---
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 I have reviewed and agree with the Assessment and Plan as documented by the Pulling Unit Floorhand. Patient given the opportunity to ask questions via occupational therapy director Advised if develops CP/severe SOB/turning blue/uncontrolle d n/v/d or black/bloody emesis or stool/ AMS/ syncope/ hi fever unresponsive to APAP to call 911- verbalized understanding of instructions [email or web address] Not available 04/03/2023 14:29:20 10/02/2023 10/02/2023 I provided real -time medical direction via phone for this encounter and was available for additional phone-based assistance as needed. I have reviewed and agree with the Assessment and Plan as documented by the Pulling Unit Floorhand. Patient given the opportunity to ask questions. Our service contacted for an assessment of: headache and numbness As per above, patient with uncontrolled DM who had a reported episode of her head falling back and gasping for air per without LOC however patient does not remember the event. She reported having a frontal RUBIO afterwards and also BUE numbness. This service was then called. Per statistical analyst on the scene, no focal deficits with VSS and BG of 220. FAST exam is negative per statistical analyst and patient does have sensation of the BUE. Patient denies being on a blood thinner, h/o stroke, CP, SOB or CÁRDENAS. Impression: Unclear etiology of RUBIO and numbness that followed a brief (seconds) of an altered state from baseline. Since resolved and exam/vitals/data are reassuring. May represent a TIA as patient is at risk given co-morbidity's. Plan: Very low threshold to present to the ED. We encouraged and suggested that she present however she declined. We asked patient to go the ED if symptoms occurred again and to please f/u with her PCP by phone today. Patient agrees with that plan. [email or web address] Not available 10/02/2023 14:36:29 Plan of Treatment Reminders Order Date Submit Date Provider Last Modified By Organization Details Last Modified Time Details Appointments None recorded. Lab BMP, serum or plasma 2022 023 [email or web address] [facility], [address] [place] [address], [id number], 17:24:50 glucose, fingerstick , blood 2022 023 MARTHA [facility], [address] [place] [address], [phone], 08:32:02 rapid SARS CoV 2 Ag, QL IA, respiratory specimen 2022 023 [email or web address] 0 [facility], [address] [place] [address], [id number], 3 14:32:45 BMP, serum or plasma 2022 023 [email or web address] 0 [facility], [address] [place] [address], [phone], 14:32:40 urinalysis, dipstick 2022 023 [email or web address] 0 [facility], [address] [place], [address], 14:32:43 Referral None recorded. Procedures None recorded. Surgeries None recorded. Imaging None recorded. Medication Orders lactated Ringers intravenous solution 2022 023 [email or web address] Not available 16:56:52 potassium chloride ER 20 mEq tablet,exte nded release 2022 023 [email or web address] Not available 17:26:55 potassium chloride 20 mEq oral packet 2022 023 [email or web address] 0 Not available 14:32:40 potassium chloride ER 20 mEq tablet,exte nded release 2022 023 [facility], [address] [place] [address], [phone], 14:30:28 Patient TargetsNo targets recorded. Patient InstructionsNo instructions recorded. Reason for Referral None Reported. Results Created Date Observation Date Name Description Value Unit Range Abnormal Flag Note LastModifiedBy Organization Detail LastModifiedTime 04/01/2004/01/2023 BMP, serum or plasm a BUN 10 Not Available [facility] [address], [address], 04/01/2023 16:52:56 04/01/2004/01/2023 BMP, serum or plasm a Ca 1.06 Not Available [facility] [address], [address], 04/01/2023 16:52:56 04/01/2004/01/2023 BMP, serum or plasm a CI- 89 Not Available [facility] [address], [address], 04/01/2023 16:52:56 04/01/2004/01/2023 BMP, serum or plasm a CRE 0.8 Not Available [facility] [address], [address], 04/01/2023 16:52:56 04/01/2004/01/2023 BMP, serum or plasm a GLU 700 Not Available [facility] [address], [address], 04/01/2023 16:52:56 04/01/20 23 04/01/2023 BMP, serum or plasm a K+ 3.4 Not Available [facility] [address], [address], 04/01/2023 16:52:56 04/01/20 23 04/01/2023 BMP, serum or plasm a Na+ 128 Not Available [facility] [address], [address], 04/01/2023 16:52:56 04/01/20 23 04/01/2023 BMP, serum or plasm a tCO2 23 Not Available [facility] [address], [address], 04/01/2023 16:52:56 04/03/20 23 04/03/2023 BMP, serum or plasm a BUN 4 Not Available [facility] [address], [address], 04/03/2023 14:21:27 04/03/20 23 04/03/2023 BMP, serum or plasm a Ca Ionize d calciu m 1.2 Not Available [facility] [address], [address], 04/03/2023 14:21:27 04/03/20 23 04/03/2023 BMP, serum or plasm a CI- 100 Not Available [facility] [address], [address], 04/03/2023 14:21:27 04/03/20 23 04/03/2023 BMP, serum or plasm a CRE 0.8 Not Available [facility] [address], [address], 04/03/2023 14:21:27 04/03/20 23 04/03/2023 BMP, serum or plasm a GLU 259 Not Available [facility] [address], [address], 04/03/2023 14:21:27 04/03/20 23 04/03/2023 BMP, serum or plasm a K+ 3.2 Not Available [facility] [address] [place] [address], [address], 04/03/2023 14:21:27 04/03/20 23 04/03/2023 BMP, serum or plasm a Na+ 137 Not Available [facility] [address], [address], 04/03/2023 14:21:27 04/03/20 23 04/03/2023 BMP, serum or plasm a tCO2 24 Not Available [facility] [address], [address], 04/03/2023 14:21:27 04/03/20 23 04/03/2023 urina lysis , dipst ick Leukocytes neg Not Available [facility] [address] [place] [address], [phone], 04/03/2023 14:21:32 04/03/20 23 04/03/2023 urina lysis , dipst ick Nitrite negati ve Not Available [facility] [address], [address], 04/03/2023 14:21:32 04/03/20 23 04/03/2023 urina lysis , dipst ick Urobilinogen neg Not Available [facility] [address] [place] [address], [address], 04/03/2023 14:21:32 04/03/20 23 04/03/2023 urina lysis , dipst ick Protein neg Not Available [facility] [address], [address], 04/03/2023 14:21:32 04/03/20 23 04/03/2023 urina lysis , dipst ick pH 6 Not Available [facility] [address], [address], 04/03/2023 14:21:32 11/01/04/03/2023 urina lysis , dipst ick Blood neg Not Available [facility] [address] [place] [address], [address], 04/03/2023 14:21:32 04/03/20 23 04/03/2023 urina lysis , dipst ick Specific [place] 1.005 Not Available [facility] [address] [place] [address], [address], 04/03/2023 14:21:32 04/03/20 23 04/03/2023 urina lysis , dipst ick Ketone neg Not Available [facility] [address], [address], 04/03/2023 14:21:32 04/03/20 23 04/03/2023 urina lysis , dipst ick Bilirubin neg Not Available [facility] [address] [place] [address], [address], 04/03/2023 14:21:32 04/03/20 23 04/03/2023 urina lysis , dipst ick Glucose neg Not Available [facility] [address], [address], 04/03/2023 14:21:32 04/03/20 23 04/03/2023 urina lysis , dipst ick Appearance clear they were both Not Available [facility] [address] [place] [address], [address], 04/03/2023 14:21:32 04/03/20 23 04/03/2023 urina lysis , dipst ick Color yellow Not Available [facility] [address] [place] [address], [address], 04/03/2023 14:21:32 04/03/20 23 04/03/2023 rapid SARS CoV 2 Ag, QL IA, respi rator y speci men rapid SARS CoV 2 Ag, QL IA, respiratory specimen positi ve Not Available [facility] [address] [place] [address], [address], 04/03/2023 14:19:58 Result Notes None recorded. Medical Equipment None Reported. Allergies Allergen ID Allergen Name Allergen Category Reaction Reaction Severity Criticality Documentation Date Start Date Code Code System Note Provider Name and Address Organization Details Recorded Time 3695 aspirin medicatio n Not available Not available Not available 04/03/2023 1191 RxNorm Not Available [facility] - [facility] 4 03:57:53 3696 Medicinal product containin g penicilli n and acting as antibacte rial agent (product) medicatio n Not available Not available Not available 04/03/2023 28583 05 SNOMED Not Available [facility] - production 4 03:57:53 3697 Topamax medicatio n Not available Not available Not available 04/03/2023 40928 3 RxNorm Esther Weston MD [address] [place] [address],[address], [place], [address], [facility] 3 14:18:48 3698 Imitrex medicatio n Not available Not available Not available 04/03/2023 70607 3 RxNorm Esther Weston MD [address] [place] [address],[address], [place], [address], [facility] 3 14:18:55 Medications Name Sig Start Date Stop Date Status Note LastModified by Organization Details LastModified Time medbox status USE DIRECTED active Not Available Not Available No t Available furosemide 40 mg tablet TAKE 1 TABLET BY MOUTH EVERY MORNING active Not Available Not Available No t Available metformin 500 mg tablet TAKE 2 TABLETS BY MOUTH TWICE DAILY IN THE MORNING AND EVENING WITH FOOD active Not Available Not Available No t Available Vitamin B-2 100 mg tablet TAKE 2 TABLETS BY MOUTH ONCE DAILY IN THE MORNING active Not Available Not Available Not Available prednisone 10 mg tablet TAKE 6 TABLETS BY MOUTH ONCE DAILY FOR 2 DAYS, 5 TABLETS ONCE DAILY FOR 2 DAYS, 4 TABLETS ONCE DAILY FOR 2 DAYS, 3 TABLETS ONCE DAILY FOR 2 DAYS, 2 TABLETS ONCE DAILY ONCE DAILY FOR 2 DAYS, 1 TABLET ONCE DAILY FOR 2 DAYS, THEN 1/2 TABLET ONCE DAILY FOR 2 DAYS active Not Available Not Available No t Available quetiapine 300 mg tablet TAKE 1/2 TABLET BY MOUTH AT BEDTIME active Not Available Not Available No t Available albuterol sulfate 2.5 mg/3 mL (0.083 %) solution for nebulization INHALE 1 AMPULE USING A NEBULIZER FOUR TIMES DAILY NEEDED active Not Available Not Available No t Available atorvastatin 10 mg tablet TAKE 1 TABLET BY MOUTH AT BEDTIME active Not Available Not Available No t Available azithromycin 250 mg tablet TAKE 2 TABLETS BY MOUTH ON DAY 1, THEN TAKE 1 TABLET DAILY ON DAYS 2-5 active Not Available Not Available No t Available nicotine (polacrilex) 2 mg gum CHEW 1 PIECE OF GUM EVERY 1-2 HOURS NEEDED DURING WEEKS 1-6, THEN CHEW 1 PIECE OF GUM EVERY 2-4 HOURS DURING WEEKS 7-9, THEN CHEW 1 PIECE OF GUM EVERY 4-8 HOURS DURING WEEKS 10-12 DIRECTED. active Not Available Not Available No t Available nystatin 100,000 unit/gram topical ointment APPLY TO THE AFFECTED AREA(S) TWICE DAILY active Not Available Not Available Not Available glipizide 10 mg tablet TAKE 2 TABLETS BY MOUTH TWICE DAILY IN THE MORNING AND EVENING BEFORE MEALS active Not Available Not Available No t Available lactated Ringers intravenous solution 1000 ml IV x1 now 2022 active Not Available Not Available Not Avai lable divalproex 500 mg tablet,delay ed release TAKE 1 TABLET BY MOUTH TWICE DAILY IN THE MORNING AND AT BEDTIME active Not Available Not Available No t Available Nicotrol 10 mg inhalation cartridge Use at least 6 cartridges per day for the first 3 to 6 weeks. Max of 16 cartridges each day. Do not eat or drink for 15 mins before use. active Not Available Not Available Not Available acetaminophe n ER 650 mg tablet,exten ded release TAKE 1 TABLET BY MOUTH EVERY 6 HOURS NEEDED FOR PAIN OR FOR FEVER active Not Available Not Available No t Available potassium chloride 20 mEq oral packet 2 packets now for k 3.2 2022 active Not Available Not Available Not Avai lable Deep Sea Nasal 0.65 % spray aerosol USE 2 SPRAYS IN EACH NOSTRIL FOUR TIMES DAILY active Not Available Not Available No t Available potassium chloride ER 20 mEq tablet,exten ded release(part /cryst) TAKE 2 TABLETS BY MOUTH EVERY DAY FOR 5 DAYS active Not Available Not Available No t Available prednisolone acetate 1 % eye drops,suspen alonso INSTILL 1 DROP INTO RIGHT EYE FOUR TIMES A DAY FOR 4 DAYS THEN STOP active Not Available Not Available No t Available magnesium oxide 400 mg (241.3 mg magnesium) tablet TAKE 1 TABLET BY MOUTH EVERY MORNING active Not Available Not Available No t Available furosemide 80 mg tablet TAKE 1 TABLET BY MOUTH EVERY MORNING active Not Available Not Available No t Available OneTouch Ultra Test strips USE DIRECTED TO TEST BLOOD SUGAR TWICE DAILY active Not Available Not Available No t Available amitriptylin e 10 mg tablet TAKE 2 TABLETS BY MOUTH EVERY DAY AT BEDTIME active Not Available Not Available No t Available meclizine 25 mg tablet TAKE 1 TABLET BY MOUTH UP TO TWICE DAILY NEEDED FOR DIZZINESS active Not Available Not Available No t Available benzonatate 100 mg capsule TAKE 1 CAPSULE BY MOUTH THREE TIMES DAILY IN THE MORNING, AT NOON, AND AT BEDTIME NEEDED FOR COUGH FOR UP TO 7 DAYS. DO NOT BREAK, CRUSH, DISSOLVE OR CHEW active Not Available Not Available No t Available doxycycline monohydrate 100 mg capsule TAKE 1 CAPSULE BY MOUTH TWICE A DAY FOR 10 DAYS active Not Available Not Available No t Available buspirone 10 mg tablet TAKE 1 TABLET BY MOUTH TWICE DAILY active Not Available Not Available No t Available prednisone 50 mg tablet TAKE 1 TABLET BY MOUTH EVERY DAY FOR 5 DAYS active Not Available Not Available No t Available divalproex ER 500 mg tablet,exten ded release 24 hr TAKE 1 TABLET BY MOUTH TWICE DAILY IN THE MORNING AND AT BEDTIME active Not Available Not Available No t Available nicotine 21 mg/24 hr daily transdermal patch APPLY 1 PATCH TOPICALLY TO THE SKIN DAILY IN THE MORNING DO NOT SMOKE WHILE USING PATCH active Not Available Not Available Not Available oxybutynin chloride ER 5 mg tablet,exten ded release 24 hr TAKE 1 TABLET BY MOUTH EVERY EVENING active Not Available Not Available No t Available gabapentin 300 mg capsule TAKE 2 CAPSULES BY MOUTH THREE TIMES DAILY IN THE MORNING, AT NOON AND AT BEDTIME active Not Available Not Available No t Available omeprazole 20 mg capsule,garcia yed release TAKE 2 CAPSULES BY MOUTH ONCE DAILY IN THE MORNING active Not Available Not Available Not Available furosemide 20 mg tablet TAKE 1 TABLET BY MOUTH EVERY MORNING active Not Available Not Available No t Available ibuprofen 600 mg tablet TAKE 1 TABLET BY MOUTH 3 TIMES A DAY NEEDED FOR ANALGESIA active Not Available Not Available No t Available ondansetron 4 mg disintegrati ng tablet DISSOLVE 1 TABLET ON TONGUE EVERY 8 HOURS NEEDED FOR NAUSEA AND VOMITING active Not Available Not Available No t Available naproxen 500 mg tablet TAKE 1 TABLET BY MOUTH TWICE A DAY NEEDED FOR MODERATE PAIN SCALE 4-6 active Not Available Not Available No t Available Ventolin HFA 90 mcg/actuatio n aerosol inhaler INHALE 2 PUFFS EVERY 4 TO 6 HOURS NEEDED active Not Available Not Available No t Available buspirone 15 mg tablet TAKE 1 TABLET BY MOUTH THREE TIMES DAILY IN THE MORNING, AT NOON, AND IN THE EVENING active Not Available Not Available No t Available aripiprazole 10 mg tablet TAKE 1 TABLET BY MOUTH EVERY MORNING active Not Available Not Available No t Available aripiprazole 15 mg tablet TAKE 1 TABLET BY MOUTH EVERY MORNING active Not Available Not Available No t Available aripiprazole 20 mg tablet TAKE 1 TABLET BY MOUTH EVERY MORNING active Not Available Not Available No t Available aripiprazole 5 mg tablet TAKE 1 TABLET BY MOUTH EVERY MORNING active Not Available Not Available No t Available Alcohol Prep Pads USE 1 SWAB TWICE DAILY DIRECTED active Not Available Not Available Not Available duloxetine 60 mg capsule,garcia yed release TAKE 1 CAPSULE BY MOUTH EVERY MORNING active Not Available Not Available No t Available aripiprazole 2 mg tablet TAKE 1 TABLET BY MOUTH EVERY MORNING active Not Available Not Available No t Available quetiapine 50 mg tablet TAKE 2 TABLETS BY MOUTH EVERY DAY AT BEDTIME active Not Available Not Available No t Available calcium 600 mg (as carbonate)-v itamin D3 10 mcg (400 unit) tablet TAKE 1 TABLET BY MOUTH TWICE DAILY IN THE MORNING AND AT BEDTIME active Not Available Not Available No t Available Symbicort 160 mcg-4.5 mcg/actuatio n HFA aerosol inhaler INHALE 2 PUFFS BY MOUTH TWICE DAILY IN THE MORNING AND IN THE EVENING RINSE MOUTH AFTER USING. active Not Available Not Available No t Available Lantus Solostar U-100 Insulin 100 unit/mL (3 mL) subcutaneous pen INJECT 14 UNITS SUBCUTANEOU SLY ONCE DAILY DIRECTED active Not Available Not Available No t Available melatonin 5 mg tablet TAKE 2 TABLETS BY MOUTH EVERY DAY AT BEDTIME NEEDED FOR SLEEP active Not Available Not Available No t Available cholecalcife rol (vitamin D3) 50 mcg (2,000 unit) tablet TAKE 1 TABLET BY MOUTH EVERY MORNING active Not Available Not Available No t Available Gavilax 17 gram/dose oral powder TAKE 17 GM MIXED IN 8 OUNCES OF WATER ONCE DAILY active Not Available Not Available No t Available UltiCare Pen Needle 32 gauge x USE DIRECTED ONCE DAILY WITH lantus active Not Available Not Available Not Available potassium chloride ER 20 mEq tablet,exten ded release Take 2 tablets every day by oral route for 5 days. 2022 active Not Available Not Available Not Avai lable Trulicity 1.5 mg/0.5 mL subcutaneous pen injector INJECT ONE PEN (=1.5MG) SUBCUTANEOU SLY ONCE A WEEK DIRECTED active Not Available Not Available No t Available Trulicity 0.75 mg/0.5 mL subcutaneous pen injector INJECT ONE PEN (=0.75MG) SUBCUTANEOU SLY ONCE A WEEK DIRECTED active Not Available Not Available No t Available Tresiba FlexTouch U-200 insulin 200 unit/mL (3 mL) subcutaneous pen INJECT 28 UNITS SUBCUTANEOU SLY EVERY MORNING. INCREASE DIRECTED UP TO 48 UNITS DAILY. DO NOT EXCEED 48 UNITS PER DAY. active Not Available Not Available No t Available baclofen 5 mg tablet TAKE 1 TABLET BY MOUTH THREE TIMES DAILY NEEDED FOR MUSCLE SPASMS OR PAIN active Not Available Not Available No t Available OneTouch Ultra2 Meter USE TO CHECK BLOOD SUGAR TWICE DAILY DIRECTED active Not Available Not Available No t Available OneTouch Delica Plus Lancet 33 gauge TEST BLOOD SUGAR TWICE DAILY DIRECTED active Not Available Not Available No t Available FreeStyle Jt 2 Sensor kit TEST BLOOD SUGAR EVERY 8 HOURS AND NEEDED. CHANGE EVERY 14 DAYS active Not Available Not Available No t Available FreeStyle Jt 2 [place] USE DIRECTED EVERY 8 HOURS active Not Available Not Available No t Available Trulicity 3 mg/0.5 mL subcutaneous pen injector INJECT ONE PEN (= 3MG) SUBCUTANEOU SLY ONCE A WEEK DIRECTED active Not Available Not Available No t Available Trulicity 4.5 mg/0.5 mL subcutaneous pen injector INJECT ONE PEN (= 4.5MG) SUBCUTANEOU SLY ONCE A WEEK DIRECTED active Not Available Not Available No t Available Tab-A-Manjeet Multivitamin w-iron 15 mg iron-400 mcg tablet TAKE 1 TABLET BY MOUTH EVERY MORNING WITH FOOD active Not Available Not Available No t Available Vitals Date Recorded Respiratory rate Oxygen saturation Oxygen saturation in Arterial blood by Pulse oximetry Heart rate Body temperature Systolic blood pressure Diastolic blood pressure Provider Name and Address Organization Details Last Updated DateTime 3 18 /min 97 % 97 % 95 /min 97.2 [degF] 136 mm[Hg] 78 mm[Hg] Not Available [facility] 3 16:51:43 Date Recorded Body temperature Oxygen saturation Oxygen saturation in Arterial blood by Pulse oximetry Body weight Respiratory rate Body height Heart rate Systolic blood pressure Diastolic blood pressure Provider Name and Address Organization Details Last Updated DateTime 3 98.1 [degF] 96 % 96 % 86928.4 g 18 /min 152.4 cm 88 /min 114 mm[Hg] 82 mm[Hg] Not Available [facility] 3 13:28:41 Date Recorded Oxygen saturation Oxygen saturation in Arterial blood by Pulse oximetry Body temperature Respiratory rate Heart rate Systolic blood pressure Diastolic blood pressure Provider Name and Address Organization Details Last Updated DateTime 3 95 % 95 % 100.5 [degF] 16 /min 93 /min 128 mm[Hg] 76 mm[Hg] Not Available [facility] 3 13:52:12 Date Recorded Body height Body mass index (BMI) Body weight Provider Name and Address Organization Details Last Updated DateTime 04/03/2023 152.4 cm 39.1 kg/m2 10703.47 g Esther Weston MD [address] [place] [address],[address], [place], [address], [place] - [facility] 04/03/2023 14:35:10 Date Recorded Oxygen saturation Oxygen saturation in Arterial blood by Pulse oximetry Body temperature Respiratory rate Heart rate Systolic blood pressure Diastolic blood pressure Provider Name and Address Organization Details Last Updated DateTime 4 97 % 97 % 98.5 [degF] 16 /min 86 /min 132 mm[Hg] 84 mm[Hg] Not Available [facility] 4 14:22:20 Social History None recorded. Functional Status None recorded. Mental Status None recorded. Family History Nothing Reported. Medical History No medical history recorded. Gynecological HistoryNo gynecological history recorded. Obstetrics History GPAL:G 0 P 0 0 0 0 Past Encounters Encounter ID Performer Location Encounter Start Date Encounter Closed Date Diagnosis/Indication Diagnosis SNOMED-CT Code Diagnosis ICD10 Code [id number] RADHA SHIELDS MD [facility] [address] [place] [address] 04/01/2023 16:51:41 04/02/2023 14:54:05 Hyperglycemia 87657885 R73.9 [id number] Tamie Bridges MD [facility] [address] [place], [place] [address] 04/02/2023 13:28:36 04/02/2023 15:00:10 Hyperglycemia 85615841 R73.9 [id number] Esther Weston MD [facility] [address] [place] [address] 0 04/03/2023 13:52:09 04/03/2023 22:25:35 Hypokalemia 42564200 E87.6 COVID-19 [id number] U07.1 [id number] Oneida Casper MD [facility] [address] [place] [address] 0 10/02/2023 14:22:17 10/03/2023 11:26:47 Headache 91797533 R51.9 Health Concerns Section Related Observation LastModified by Organization Detai ls LastModified Time None Recorded Concern Status LastModified by Organization Details LastModified Time None Recorded Advance Directives Directive None Recorded Payers Encounter Date Sequence Insurance Name Policy Number Policy Chin Covered Member ID Chin Member ID Guarantor Name 04/01/2023 1 [facility] - DOS ON OR AFTER 2022 - DUAL ELIGIBLE - ASSISTED OPTIONS AND ONE CARE (MEDICARE REPLACEMENT/ADV ANTAGE - HMO) Ramona Suarez [id number] Ramona Suarez 04/02/2023 1 [facility] - DOS ON OR AFTER 2022 - DUAL ELIGIBLE - ASSISTED OPTIONS AND ONE CARE (MEDICARE REPLACEMENT/ADV ANTAGE - HMO) Ramona Suarez [id number] Ramona Suarez 04/03/2023 1 [facility] - DOS ON OR AFTER 2022 - DUAL ELIGIBLE - ASSISTED OPTIONS AND ONE CARE (MEDICARE REPLACEMENT/ADV ANTAGE - HMO) Ramona Suarez [id number] Ramona Suarez 10/02/2023 1 [facility] - DOS ON OR AFTER 2022 - DUAL ELIGIBLE - ASSISTED OPTIONS AND ONE CARE (MEDICARE REPLACEMENT/ADV ANTAGE - HMO) Ramona Suarez [id number] Ramona Suarez Notes Date Note Type Note Provider Name and Address Organization Details Recorded Time 04/01/2023 text/html HPI: Call to Ramona Suarez. Reports having ASHWIN sx on 03/24/23. Pt tested the following day and positive homekit for COVID-19. Per pt continues to have RUBIO, body aches, fatigue temp of 102F and mild wheezing. Pt having to use albuterol inhaler and nebulizer Q4H. Pt denies any CP or SOB. Pt advised of disposition, prefers [facility] referral for assessment since sx not improving and day 8. ................... ................... ................... ................... ................... ................... ................... ........ CRC Nursing Assessment: Comments: CRC RN DID NOT NEED FURTHER INFO ................... ................... ................... ................... ................... ................... ................... ........ Pulling Unit Floorhand Note From Davidson Baptiste: Dispatched for the female libertarian experiencing flu-like symptoms, Covid-19 positive as of 03/24/23. Encountered patient supine and conscious in bed with family present, family presents a positive Covid-19 at-home test which reads positive; family expresses the test [facility] During exam, patient disclosed that she is an insulin dependent diabetic and has not taken her insulin since receiving the first positive test result back on 03/24/23. Patient presents personal glucometer device that reads 'Hi'. [facility] consulted for treatment plan. Skin warm, dry and of appropriate color for ethnicity. Head and neck free of trauma and edema. PERRL. -JVD. Breath sounds present, clear and equal bilaterally. Abdomen soft, non-tender and non-distended. Extremities free of trauma and edema. 4 lead EKG exhibits a sinus rhythm with no present ectopy. 20G IV established in left forearm; BGL Hi. Per [facility] I-stat performed and exhibited a glucose of over 700 mg/DL and a K+ of 3.4. [facility] ordered for patient to self administered 20units of her Tresiba sq. 1L lactated ringers administered via bolus. 40 mEq PO K+ administered. Patient to be transported to [facility] ED for further work-up. [place] [address] provided transport, this creative services writer accompanied patient to [facility]. Patient monitored for change in status while en route to [facility], with none noted; remained alert and oriented throughout contact. ................... ................... ................... ................... ................... ................... ................... ........ Disposition: Fulfilled RADHA SHIELDS MD [address] [facility],[address], [place], [address], [employer] 04/01/2023 19:20:47 04/02/2023 text/html HPI: Hx: Migraines. Patient today with continued elevated BG 450 via Fingerstick. Seen in [facility] ED last night declined admission. Restarted Tresiba as she had independently stopped it when diagnosed with Covid on 03/24/23. This morning took Tresiba 28 units. Took fluids and taking advil for headache and no neuro deficit. ................... ................... ................... ................... ................... ................... ................... ........ [facility] Nursing Assessment: Comments: Reviewed. No further information needed to process visit. Segn Lorenzo RN ................... ................... ................... ................... ................... ................... ................... ........ Pulling Unit Floorhand Note From Herman Navarro: Upon arrival, pt was in bed, A/O x4. Pt son is with her. Pt is pink/warm/dry and not in any immediate respiratory distress. Pt is Covid positive x9 days. Pt refused admission into hospital last night due to extremely high bgl. Today pt. C/o headache. Vitals as noted. Pt denies any CP, dizziness, nausea, and /or SOB. BGL taken on scene 452. Bilateral breath sounds reveal diffuse wheezes. Pt refused IV in ACL stating ? it hurts there.? Other access was infiltrated. POC bloodwork unable to be obtained. Pt gave herself a neb treatment she has in home while on scene, and states she is giving herself 4 neb treatments a day. [facility] contacted and pt was administered 40mg potassium oral and was advised to administer a one time dose of 10 units of her insulin in addition to the insulin she is taking per day. Pt told to contact PCP in the morning. Pulling Unit Floorhand Allergies: Aspirin, Penicillin ................... ................... ................... ................... ................... ................... ................... ........ Disposition: Fulfilled Tamie Bridges MD [address] [facility],[address], [place], [address], [employer] 04/02/2023 14:11:02 04/03/2023 text/html [facility] Nursing Assessment: Reason For Request: Follow up visit from 04/02 Chief Complaints: Diabetes Related, Electrolyte Imbalance, Medication Related PMH: COPD/Asthma, Diabetes Allergies: Aspirin, Penicillin Comments: [facility] Remarks 53 year old female with DM2, likely in HHS (left ER AMA), however unable to obtain labs as patient declined multiple attempts at blood draw, and has refused ER visit. Potassium 40 met given, advised to take an 10 additional units of her home insulin, recommending 24h follow up to recheck glucose and reattempt CMP---> HPI Hx: Migraines. Patient today with continued elevated BG 450 via Fingerstick. 04/01 in [facility] ED last night declined admission. Restarted Tresiba as she had independently stopped it when diagnosed with Covid on 03/24/23. This morning took Tresiba 28 units. Took fluids and taking advil for headache and no neuro deficit. SEGMD: Patient seen on 04/01-COVID was positive blood sugar was greater than 700 with a potassium of 3.4 and a sodium of 128. Normal BUN and creatinine she was given 1 L of lactated Ringer's, 40 mEq of potassium and sent to [facility]. She reports she was given 10 units of insulin she left AMA.Seen by our service again yesterday blood sugar was 452 by her CGM they were unable to get labs or IVs. She was wheezing so gave herself one of her own nebs./ given20 mEq kcl and 10 units of her own insulin Patient reports she is feeling much better today minimal cough has no headache, no dizziness no nausea vomiting or diarrhea. She has restarted her Tresiba.Blood sugar 2 pm is 260 on her CGM................ ................... ................... ................... ................... ................... ................... ........... Pulling Unit Floorhand Note From Davidson Baptiste: Dispatched to the call address for the female with diabetic issue. Pt was seen on Saturday by this statistical analyst. Pt was found to be hyperglycemic (>700). Pt was given 1L LR, 40mEq of potassium and sent to the ED. Pt left AMA when advised to be admitted to the hospital. Pt was seen yesterday by a different statistical analyst and given more potassium. Pt states today she feels a lot better and that her sugar is below 300 now, which is her baseline. Pt was found sitting up in bed, CAOx4, airway open and patent, breathing non labored, able to speak in full sentences, -JVD, -HEENT, skin PWD with good turgor, abd soft non tender/distended, pupils PERRL, +CMSx4, lung sounds clear and equal bilaterally. Pt slightly febrile and was advised to take Tylenol. BMP, UA and rapid covid tests preformed. BMP showed glucose 259 and still hypo K, rapid Covid +, UA negative. [facility] consulted. Pt given 40mEq potassium and script called into preferred pharmacy. Pt advised to follow up with PCP tomorrow and red flags discussed. ALL times are approx. ................... ................... ................... ................... ................... ................... ................... ........ Disposition: Fulfilled Esther Weston MD [address] [facility],[address], [place], [address], [employer] 04/03/2023 14:42:14 10/02/2023 text/html HPI: HX: ETOH abuse in remission. NO history of seizure.Patient called to report a seizure as witnessed by her this morning at 730am. No details given. Hung up on Interprter x 3 agreed to home CCA visit.DEclined 911 ED x 3. ................... ................... ................... ................... ................... ................... ................... ........ [facility] Nurse Triage Notes (Rosa Isela Hsieh): Comments: HPI reviewed, patient called w/ Guardian Ad Litem. Rail Maintenance Worker verified the member's name//address and phone number. Per triage note above member reports to have had seizure this morning around 730am. Member reports she was sitting down and suddenly felt like something came over her and felt like she was drowning. Somebody put her fingers in her mouth in order to help. Hands and arms felt very cold. Member reports this has never happened before. This creative services writer strongly encouraged member to present to the emergency room for further work up. Patient declined going to the ED or calling 911 multiple times. Pt reported she is holding off on going (to the ED) and if it comes to the point of needing help she will get it. This creative services writer explained to member that [facility] would not be able to properly work up the event and risks/red flags of not receiving proper care if the event was a seizure.Member endorses altered MS after event, but has resolved. Denies any confusion at the moment. Pt is speaking in full sentences. Denies SOB or CP. Pt reports blood sugars have been high recently >800, most recent BS 251. Explained to member risks of high blood sugar, red flags reviewed. PMH: Diabetes, bipolar disorder, chronic migraines, COPDPt [facility].Education provided on the response time and the member was advised to monitor reported s/s and seek emergency treatment if needed. Pulling Unit Floorhand POC Test Results from Moshe Grewal - [facility] Blood Glucose Measurement (1) [11:37] Blood Glucose: 221 mg/dL ................... ................... ................... ................... ................... ................... ................... ........ Pulling Unit Floorhand Note From Moshe Grewal: Dispatched to the call address for the patient noting she had a potential seizure this morning and some altered mental status. upon arrival pt. was found alert and oriented x3 lying in bed noting this morning she had an episode which was witnessed by her in which she leaned her head back and had her mouth open gasping for air no seizure like activity unknown LOC but the patient noted not remembering the event. Pt. also noted that prior to she felt numbness up her right arm with dizziness. noted she now felt numbness and tingling in both her hands, dizziness and a headache. pt. noted increased stress from a family dog being very sick. pt. vitals assessed on scene. -stroke scale findings, pupils ara -weakness -chest pain -sob -blurred vision -abd pain -nvd. pt. noted she did not want to be evaluated further in the ER but medic noted the risk for possible stroke with the symptoms and the need for a catscan. informed to call 911 if conditions continued and/or worsened and tro contact primary after to inform them of the event. [facility] contacted and informed and noted if the pt. did not want to be seen in the ER to just make sure she called if conditions worsened. all times are approx.report completed by henrry grewal. ................... ................... ................... ................... ................... ................... ................... ........ Disposition: Fulfilled Oneida Casper MD [address] [facility],[address], [place], [address], [email or web address] 10/02/2023 14:36:43 OBGyn Episode No OBEpisode recorded.
--- OUTSIDE RECORDS SUMMARY | 2024-05-12 17:16 | XMS_ITS | Patient Health Record ---
Author Organization [facility] jeffryhigabriel Address [address] [place] [address] Care Team Providers Care Site Damage Prevention Technician Name Role Phone Isabel eLwis Primary Care Provider Sarah allan Clinical, Operations Unavailable Unavailable REASON FOR REFERRAL Reason DME script for Nebul izer with supplies Diagnosis 1 Severe persistent as thma, unspecified whether complicated (J45.50) Referring Provider First Name Operations Referring Provider Last Name Clinical Referring Provider Speciality Unknown Referred Provider Tierra cheek Supply General Notes Nidia Thibodeaux 08/29 10:36:15 AM >, Point of Contact - If you have any question feel free to contact Senior Media Buyer-Nidia Thibodeaux at [email or web address] or at [phone]., Item being ordered - Nebulizer with supplies and quantities. E0570 Nebulizer; A7005 Non disposable neb kit: Q6mo; A7003 Neb administration kit: x2/mo; A7006 Filtered neb kit: Qmo; A7004 Disposable neb kit: x2/mo; A7013 Disposable filter: x2/mo; A7014 Non disposable filter: Q3mo; A7015 Aerosol mask: Qmo, How many the member uses per day - Will use nebulizer 1-2 times a day, Quantity per month that is needed - 1 nebulizer with supplies, The size of the item - N/A, Member height - N/A, Member weight - N/A, Special instructions - Ramona address for delivery is [address] [place] [address]. [facility] [address]. Ramona's phone number is [phone] and she is Syriac speaking. Clinical Notes Nidia Thibodeaux 08/29 11:13:57 AM > Referral Priority Routine MEDICATIONS Medication SIG (Take, Route, Frequency, Duration) Notes Start Date End Date Status Divalproex Sodium 500 MG 1 tablet Orally Twice a Day Active Atorvastatin Calcium 10 MG 1 tablet Oral ly Once a day Active Calcium Carbonate 1500 (600 Ca) MG 1 tablet with food Orally Twice a day Active Trulicity 1.5 MG/0.5ML 0.5 ML Subcutaneo us Once Weekly - on Saturday Active Amitriptyline HCl 10 MG 1 Tablet Orally Twice a Day Active Riboflavin 100 MG 1 tablet Orally Once a day Active Leflunomide 10 MG 1 tablet Orally Once a day Active metFORMIN HCl 500 MG 2 tablet with a armin l Orally Twice a Day Active Magnesium Oxide 400 MG 1 tablet as neede d Orally Once a day Active Symbicort 160-4.5 MCG/ACT 2 puffs Inhala tion Twice a day Active Vitamin D3 50 MCG (1999 UT) 1 tablet Ora lly Once a day Active glipiZIDE XL 10 MG 1 tablet with breakf ast Orally Once a day Active Melatonin 5 MG 1-2 tablets in the evening Orally Once a day Active ARIPiprazole 20 MG 1 tablet Orally Once a day Active DULoxetine HCl 60 MG 1 capsule Orally On a day Active Baclofen 5 MG 1 tablet as needed O rally Three times a day Active oxyBUTYnin Chloride ER 5 MG 1 tablet Ora lly Once a day Active QUEtiapine Fumarate 200 MG 1 tablet at b edtime Orally Once a day Active Omeprazole 20 MG 1 capsule 30 minutes before morning meal Orally Twice a Day Active Gabapentin 300 MG 2 capsules Orally Th ree TImes a Day Active busPIRone HCl 15 MG 1 tablet Orally Thre e Times a Day - PRN Active Furosemide 80 MG 1 tablet Orally Once a day Active IMMUNIZATIONS Vaccine Route Administration Date Status Comme nts COVID - 19 Bivalent Booster (Moderna) Unknown 07/11/2022 Administered Flu Vac (Flucelvax) QIV PFS Unknown 02/22/2023 Administ ered Flu Vac (Fluzone /Alfuria) QIV PFS Unknown 03/06/2021 A dministered Flu Vac (Fluzone /Alfuria) QIV PFS Unknown 07/11/2022 A dministered INFLUENZA TRIVALENT - Do not use Unknown 02/28/2024 Adm inistered Moderna COVID-19 Vaccine IM Unknown 10/05/2020 Administ ered Moderna COVID-19 Vaccine IM Unknown 11/03/2020 Administ ered Moderna COVID-19 Vaccine IM Unknown 01/29/2022 Administ ered PROBLEMS Problem Type ICD Code Onset Dates Problem Status W/U Status Risk SNOMED Code Notes Problem Other malaise (R53.81) Active confirmed Malaise (100294846) Problem Hypertension (I10) Active confirmed Hyp ertension (33780120) Problem Dizziness (R42) Active confirmed Dizzin ess (461035432) Problem Anxiety disorder (F41.9) Active confirmed Anxiety disorde r (440104116) Problem Asthma (J45.909) Active confirmed Asthm a (750081348) Problem Migraines (G43.909) Active confirmed mi graine (disorder) (12322957) Problem COPD (chronic obstructive pulmonary disease) (J44.9) Active confirmed COPD - Chronic obstructive pulmonary disease (29499333) Problem Osteoarthritis (M19.90) Active confirmed Osteoarthritis (548698035) Problem Sleep apnea (G47.30) Active confirmed Sleep apnea (47991384) Problem Arthralgia (M25.50) Active confirmed Ar thralgia (54288612) Problem Post traumatic stress disorder (F43.10) Active confirmed Posttraumatic stress disorder (53111157) Problem Memory loss (R41.3) Active confirmed Me edvin loss (98563543) Problem Fatty liver (K76.0) Active confirmed 19 4502828 Problem Rheumatoid arthritis (M06.9) Active confirmed Rheumatoid arthritis (51998164) Problem Type 2 diabetes mellitus (E11.9) Active confirmed Type 2 diab etes mellitus (40843466) Problem Cognitive impairment (R41.89) Active confirmed Cognitiv e impairment (429060611) Problem Lumbago with sciatica, left side (M54.42) Active confirmed Sciatica (86561195) Problem Fibromyalgia (M79.7) Active confirmed Fibromyalgia (074945324) Problem Major depression, recurrent (F33.9) Active confirmed Recurrent major depression (42585159) Problem Age-related nuclear cataract, bilateral (H25.13) Active confirmed 348921099076291 Problem Gastroesophageal reflux disease without esophagitis (K21.9) Active confirmed 624528186 Problem Other chronic pain (G89.29) Active confirmed 30604319 Problem Bipolar affective disorder, remission status unspecified (F31.9) Active confirmed 82038521 Problem Urinary incontinence, unspecified type (R32) Active confirmed 808898067 Problem Severe persistent asthma, unspecified whether complicated (J45.50) Active confirmed 329392337 Problem COVID-19 (U07.1) Active confirmed 44291 9006 Encounters Encounter Location Date Provider Diagnosis [address] [address] 09/12/2023 Operations Clinical COPD (chronic obstructive pulmonary [...] - F31.9) PLAN OF TREATMENT No Information Insurance Providers Payer Name Payer Address Payer Phone Subscriber Number Group Number Insured Name Patient Relationship to Insured Coverage Start Date Coverage End Date [address] [place] [address] [id number] RAMONA MCARTHUR Self - patient is the insured 3 [id number]
--- OUTSIDE RECORDS SUMMARY | 2024-05-12 17:16 | XMS_ITS ---
Author Organization [facility] Address [address] [place] [address] Care Team Providers Care Knockout Man Name Role Phone Isabel Lewis Primary Care Provider Unavaila ble Clinical, Operations Unavailable Unavailable REASON FOR VISIT COVID-19 Screening Encounters Encounter Location Date Provider Diagnosis [facility] [address] [place] [address] 04/08/2023 Operations Clinical PLAN OF TREATMENT No Information History and Physical Notes * HPI (History of Present Illness) Category Sub-Category Detail Notes COVID-19 Screening (Question s Revised 10/05/2019) COVID-19 Screening Member or any household memb er has any new or worsening breathing problems:: Yes ?*Member has:: Cough ?*Household member has:: Cough Member or any household memb er has other general or non-respiratory symptoms:: Yes ?*Household member has: (Ple ase check all applicable): Headache, Diarrhea or vomiting ?Duration of member's symptom(s):: 2 wee ks Member or any household memb er has been in close contact with anyone diagnosed or suspected case of COVID:: Yes ?*Household member has:: Katherine se and sustained contact with a confirmed case of COVID
== END 2024-05-06 10:32 | disposition home or self-care (01) ==
PROVIDERS: PCP Family Medicine; Visit Provider Student in an Organized Health Care Education/Training Program
DX: M13.80 Other specified arthritis, unspecified site (principal); Z79.899 Other long term (current) drug therapy; Z71.6 Tobacco abuse counseling
CPT/HCPCS: 99214; G2211

== ENCOUNTER 2024-05-06 10:37 | Outpatient (REF) | payer OTHER, SELFPAY ==
[2024-05-06 12:52] LABS: MANUAL DIFF FLAG NO
[2024-05-06 12:55] LABS: Basophils Absolute Auto 0.2 X10*3/uL (0.0-0.2); Basophils Percent Auto 1.5 % (0-2); Eosinophils Absolute Auto 0.2 X10*3/uL (0.0-0.4); Eosinophils Percent Auto 2.1 % (0-4); Hematocrit 38.3 % (37.0-47.0); Hemoglobin 12.3 g/dl (12.0-16.0); Imm Gran Abs Auto 0.04 X10*3/uL (0.00-0.03); Imm Gran Pct Auto 0.4 % (0.0-0.4); Lymphocytes Absolute Auto 3.2 X10*3/uL (1.2-4.9); Lymphocytes Percent Auto 29.9 % (20-40); Mean Corpuscular HGB Conc 32.1 g/dl (31.0-35.0); Mean Corpuscular Hemoglobin 26.2 pg (27.0-33.0); Mean Corpuscular Volume 81.7 fL (80.0-98.0); Mean Platelet Volume 10.5 fL (9.4-12.3); Monocytes Absolute Auto 0.6 X10*3/uL (0.1-1.2); Monocytes Percent Auto 5.6 % (2-11); Neutrophils Absolute Auto 6.4 x10*3/uL (2.0-8.3); Neutrophils Percent Auto 60.5 % (45-73); Platelet Count 374 X10*3/uL (160-400); Red Blood Count 4.69 X10*6/uL (4.20-5.50); Red Cell Distribution Width 17.9 % (11.0-16.0); White Blood Count 10.6 X10*3/uL (4.8-10.8)
[2024-05-06 13:09] LABS: Alanine Aminotransferase 12 U/L (0-31); Alkaline Phosphatase 177 U/L (39-117); Anion Gap 12 (12-20); Aspartate Amino Transferase 27 U/L (5-31); Bilirubin Total 0.3 mg/dL (0.0-1.0); Blood Urea Nitrogen 5 mg/dL (9-16); C Reactive Protein 4.11 mg/dL (< or = 0.50); Calcium 9.8 mg/dL (8.4-10.2); Carbon Dioxide 25 mmol/L (22-29); Chloride 109 mmol/L (96-108); Estimated Glomerular Filt Rate > 60; Glucose Random 210 mg/dL (60-115); Potassium 3.7 mmol/L (3.3-5.1); Sodium 142 mmol/L (135-145); Total Protein 7.4 g/dL (6.5-8.0)
[2024-05-06 13:35] LABS: Erythrocyte Sedimentation Rate 49 MM/HR (0-20)
== END 2024-05-06 10:38 | disposition home or self-care (01) ==
LOC: HO.10HDL 10:37
PROVIDERS: Visit Provider Student in an Organized Health Care Education/Training Program
DX: Z79.899 Other long term (current) drug therapy (principal)
CPT/HCPCS: 36415; 80053; 85025; 85652; 86140

== ENCOUNTER 2024-05-12 09:46 | Outpatient (AMB) | payer OTHER, SELFPAY ==
[2024-05-12 10:22] VITALS: BMI 32.1
--- NOTE | 2024-05-12 10:22 | A.OFFVIS_ITS ---
VS Expanded 05/12/24 10:22 Height 5 ft 3 in Weight 180 lb 15.992 oz BMI 32.1 Intake Visit Reasons: T2DM/Confirmed-k.h Allergies sumatriptan [From IMITREX] Allergy (Severe, Verified 05/06/24 09:48) SYNCOPE Penicillins [PENICILLINS] Allergy (Intermediate, Verified 05/06/24 09:48) SHORTNESS OF BREATH penicillin V Allergy (Unknown, Verified 05/06/24 09:48) swelling, rash, pruritis topiramate [From TOPAMAX] Adverse Reaction (Severe, Verified 05/06/24 09:48) OVERDOSED Nutrition Presentation Details: Pt presents for MNT f/u for T2DM Pt reports working on taking insulin with meals, reports bg in in 210 or less in the morning , Pt reports this is an improvement for her. Pt forgot glucose reader at home today. Pt reports having water as main beverages and reducing on sugars breakfast coffee with 1 sugar, slice of braad with peanut butter lunch varies (sandw or pasta with ground beef ) dinner: ground beef with pasta or rice/chicken snack on fruit or crackers or cheese BS Monitoring Most Recent Diabetes Results: Creatinine 0.88 mg/dL (0.5-1.4) 05/06/24 Blood Urea Nitrogen 5 mg/dL (9-16) L 05/06/24 Sodium 142 mmol/L (135-145) 05/06/24 Potassium 3.7 mmol/L (3.3-5.1) 05/06/24 Chloride 109 mmol/L (96-108) H 05/06/24 Carbon Dioxide 25 mmol/L (22-29) 05/06/24 Calcium 9.8 mg/dL (8.4-10.2) 05/06/24 AST 27 U/L (5-31) 05/06/24 ALT 12 U/L (0-31) 05/06/24 Total Protein 7.4 g/dL (6.5-8.0) 05/06/24 Albumin 4.0 g/dL (3.5-5.0) 05/06/24 [facility] Medical History Osteoarthritis (arthritis due to wear and tear of joints) Major depressive disorder PTSD (post-traumatic stress disorder) CAP (community acquired pneumonia) Fibromyalgia Asthma Chronic mixed headache syndrome Obstructive sleep apnea Diabetes Bipolar disorder Seronegative arthritis Surgical History Hx of colonoscopy Hx of cholecystectomy H/O shoulder surgery Family History Mother Arthritis Asthma Diabetes Social History Alcohol intake: former Patient Tobacco Use Status: Current everyday Tobacco user Cigarettes Per Day: 15 Years Smoked: 45 Assessment & Plan Assessment & Plan (1) Uncontrolled diabetes mellitus with hyperglycemia: Code(s): E11.65 - Type 2 diabetes mellitus with hyperglycemia Category: Medical Plan: Wt: 90 Kg (10/2023 ), 85.5 kg (11/2023), 84 kg 01/2024), 85 kg (02/23), 84 kg (03/26), 82 kg (05/26) Est kcal needs as per MSJ: 1800 (40% carb, 30% protein/fat) Est fluid needs as per 25-30 ml/d: 2900 Est prot per day as per 1 g/kg bw: 98 Recommend fiber intake : 8-10 g per day and gradually increase to 25-28 g per day for women and 35-38 g for men or as tolerated Recommend sodium intake per day : less than 2000 mg Educated patient on: ( R = reviewed V = verbalizes understanding N/R = needs review N/A = not applicable * Food sources of carbohydrate, adequate serving sizes and its role in various health conditions: R, V * Differences between complex carbohydrates a simple carbohydrates, role of fiber in diet: R * Lean protein sources of foods: R , v * Differences between types of fats and role in diet (mono on saturated fat fatty acids, saturated fatty acids, trans fats): R * Food sources of sodium in salt and healthy modifications for heart health in kidney health: R V R/V * Vitamins and minerals: R V N/R * Healthy plate method concept: R * Physical activity: Benefits a precaution: R * benefits of glucose control: R * Hypoglycemia protocol (rule of 15): R V * Dietary prevention of Hyperglycemia: R * Meal planning: R,V * Signs and symptoms of hyperglycemia, : R * Hydration : R * Patient Instructions: Continue working on taking diabetes medications as prescribe by your doctor have water, crystal light, low sugar beverages with meals/snack Choose fiber rich foods (beans, corn, carrots, green beans Coding Level of Care Code Nutr Indiv Subseq (34817) Diagnoses Uncontrolled diabetes mellitus with hyperglycemia E11.65 Time Spent (min) 30
--- OUTSIDE RECORDS SUMMARY | 2024-05-13 19:34 | XMS_ITS | Patient Health Record ---
Author Organization [facility] jeffrynmgabriel Address [address] [place] [address] Care Team Providers Care Air Conditioning Service Technician Name Role Phone Isabel Lewis Primary Care Provider Sarah allan Clinical, Operations [...] have any question feel free to contact Supervisor Mill-Nidia Thibodeaux at [email or web address] or at [phone]., Item being ordered - Nebulizer with supplies [...] instructions - Ramona address for delivery is [address] [place] [address]. [facility] [address]. Ramona's phone number is [phone] and she is Yakut speaking. Clinical Notes Nidia Thibodeaux 08/29 11:13:57 [...] Problem Other malaise (R53.81) Active confirmed Malaise (788092624) Problem Hypertension (I10) Active confirmed Hyp ertension (11491475) Problem Dizziness (R42) Active confirmed Dizzin ess (070276255) Problem Anxiety disorder (F41.9) Active confirmed Anxiety disorde r (658702525) Problem Asthma (J45.909) Active confirmed Asthm a (482962769) Problem Migraines (G43.909) Active confirmed mi graine (disorder) (39813509) Problem COPD (chronic obstructive pulmonary disease) (J44.9) Active confirmed COPD - Chronic obstructive pulmonary disease (68118549) Problem Osteoarthritis (M19.90) Active confirmed Osteoarthritis (133915201) Problem Sleep apnea (G47.30) Active confirmed Sleep apnea (70894037) Problem Arthralgia (M25.50) Active confirmed Ar thralgia (32344563) Problem Post traumatic stress disorder (F43.10) Active confirmed Posttraumatic stress disorder (79953846) Problem Memory loss (R41.3) Active confirmed Me edvin loss (87261998) Problem Fatty liver (K76.0) Active confirmed 19 7493253 Problem Rheumatoid arthritis (M06.9) Active confirmed Rheumatoid arthritis (58366473) Problem Type 2 diabetes mellitus (E11.9) Active confirmed Type 2 diab etes mellitus (09660102) Problem Cognitive impairment (R41.89) Active confirmed Cognitiv e impairment (559478697) Problem Lumbago with sciatica, left side (M54.42) Active confirmed Sciatica (93888619) Problem Fibromyalgia (M79.7) Active confirmed Fibromyalgia (291519326) Problem Major depression, recurrent (F33.9) Active confirmed Recurrent major depression (44719689) Problem Age-related nuclear cataract, bilateral (H25.13) Active confirmed 660199210873347 Problem Gastroesophageal reflux disease without esophagitis (K21.9) Active confirmed 278416531 Problem Other chronic pain (G89.29) Active confirmed 26153142 Problem Bipolar affective disorder, remission status unspecified (F31.9) Active confirmed 47556827 Problem Urinary incontinence, unspecified type (R32) Active confirmed 428586397 Problem Severe persistent asthma, unspecified whether complicated (J45.50) Active confirmed 570559611 Problem COVID-19 (U07.1) Active confirmed 50943 9006 Encounters Encounter Location Date Provider Diagnosis [address] [address] 09/12/2023 Operations Clinical COPD (chronic obstructive pulmonary [...] Insured Coverage Start Date Coverage End Date [address] [place] [address] [id number] RAMONA MCARTHUR Self - patient is the insured 3 [phone]
--- OUTSIDE RECORDS SUMMARY | 2024-05-13 19:34 | XMS_ITS ---
Author Organization [facility] Address [address] [place] [address] Care Team Providers Care Electrician Crane Maintenance Name Role Phone Isabel Lewis Primary Care [...] Problem Fatty liver (K76.0) Active confirmed 19 3561464 Problem Urinary incontinence, unspecified type (R32) Active confirmed 285589536 Problem COVID-19 (U07.1) Active confirmed 64622 9006 Problem Other chronic pain (G89.29) Active confirmed 72018924 Problem Age-related nuclear cataract, bilateral (H25.13) Active confirmed 043273911324237 Problem Gastroesophageal reflux disease without esophagitis (K21.9) Active confirmed 051206759 Problem Bipolar affective disorder, remission status unspecified (F31.9) Active confirmed 65666720 Encounters Encounter Location Date Provider Diagnosis [address] [address] 09/12/2023 Operations Clinical COPD (chronic obstructive pulmonary [...]
--- OUTSIDE RECORDS SUMMARY | 2024-05-13 19:34 | XMS_ITS | Data Portability ---
Author Organization [employer] [place] [employer] Address [address] [place] [address] Care Team Providers Care Manager Farm Name Role Phone [facility] Referring Provider HIM [facility] OTHER [facility] OTHER Assessment Encounter Date Assessment Date Assessment LastModified by Organization Details LastModified Time 04/03/2023 04/03/2023 I provided real -time medical direction via phone for this encounter, and was available for additional phone based assistance as needed. I have reviewed and agree with the Assessment and Plan as documented by the Pipe Maker. Patient given the opportunity to ask questions via administrative and program specialist Advised if develops CP/severe SOB/turning blue/uncontrolle d n/v/d or black/bloody emesis or stool/ AMS/ syncope/ hi fever unresponsive to APAP to call 911- verbalized understanding of instructions [email or web address] Not available 04/03/2023 14:29:20 10/02/2023 10/02/2023 I provided real -time medical direction via phone for this encounter and was available for additional phone-based assistance as needed. I have reviewed and agree with the Assessment and Plan as documented by the Pipe Maker. Patient given the opportunity to ask questions. [...] numbness. This service was then called. Per senior it security analyst on the scene, no focal deficits with VSS and BG of 220. FAST exam is negative per senior it security analyst and patient does have sensation of [...] plasma 2022 023 [email or web address] [facility], [address] [place] [address], [id number], 17:24:50 glucose, fingerstick , blood 2022 023 MARTHA [facility], [address] [place] [address], [id number], 08:32:02 rapid SARS CoV 2 Ag, QL IA, respiratory specimen 2022 023 [email or web address] 0 [facility], [address] [place] [address], [id number], 3 14:32:45 BMP, serum or plasma 2022 023 [email or web address] 0 [facility], [address] [place] [address], [id number], 14:32:40 urinalysis, dipstick 2022 023 [email or web address] 0 [facility], [address] [place], [address], 14:32:43 Referral None recorded. Procedures None recorded. Surgeries None recorded. Imaging None recorded. Medication Orders lactated Ringers intravenous solution 2022 023 [email or web address] Not available 16:56:52 potassium chloride ER 20 mEq tablet,exte nded release 2022 023 [email or web address] Not available 17:26:55 potassium chloride 20 mEq oral packet 2022 023 [email or web address] 0 Not available 14:32:40 potassium chloride ER 20 mEq tablet,exte nded release 2022 023 [facility], [address] [place] [address], [id number], 14:30:28 Patient TargetsNo targets recorded. Patient InstructionsNo instructions recorded. Reason for Referral None Reported. Results Created Date Observation Date Name Description Value Unit Range Abnormal Flag Note LastModifiedBy Organization Detail LastModifiedTime 04/01/2004/01/2023 BMP, serum or plasm a BUN 10 Not Available [facility] [address], [address], 04/01/2023 16:52:56 04/01/2004/01/2023 BMP, serum or plasm a Ca 1.06 Not Available [facility] [address], [address], 04/01/2023 16:52:56 04/01/2004/01/2023 BMP, serum or plasm a CI- 89 Not Available [facility] [address], [address], 04/01/2023 16:52:56 04/01/2004/01/2023 BMP, serum or plasm a CRE 0.8 Not Available [facility] [address], [address], 04/01/2023 16:52:56 04/01/2004/01/2023 BMP, serum or plasm a GLU 700 Not Available [facility] [address], [address], 04/01/2023 16:52:56 04/01/20 23 04/01/2023 BMP, serum or plasm a K+ 3.4 Not Available [facility] [address], [address], 04/01/2023 16:52:56 04/01/20 23 04/01/2023 BMP, serum or plasm a Na+ 128 Not Available [facility] [address], [address], 04/01/2023 16:52:56 04/01/20 23 04/01/2023 BMP, serum or plasm a tCO2 23 Not Available [facility] [address], [address], 04/01/2023 16:52:56 04/03/20 23 04/03/2023 BMP, serum or plasm a BUN 4 Not Available [facility] [address], [address], 04/03/2023 14:21:27 04/03/20 23 04/03/2023 BMP, serum or plasm a Ca Ionize d calciu m 1.2 Not Available [facility] [address], [address], 04/03/2023 14:21:27 04/03/20 23 04/03/2023 BMP, serum or plasm a CI- 100 Not Available [facility] [address], [address], 04/03/2023 14:21:27 04/03/20 23 04/03/2023 BMP, serum or plasm a CRE 0.8 Not Available [facility] [address], [address], 04/03/2023 14:21:27 04/03/20 23 04/03/2023 BMP, serum or plasm a GLU 259 Not Available [facility] [address], [address], 04/03/2023 14:21:27 04/03/20 23 04/03/2023 BMP, serum or plasm a K+ 3.2 Not Available [facility] [address] [place] [address], [address], 04/03/2023 14:21:27 04/03/20 23 04/03/2023 BMP, serum or plasm a Na+ 137 Not Available [facility] [address], [address], 04/03/2023 14:21:27 04/03/20 23 04/03/2023 BMP, serum or plasm a tCO2 24 Not Available [facility] [address], [address], 04/03/2023 14:21:27 04/03/20 23 04/03/2023 urina lysis , dipst ick Leukocytes neg Not Available [facility] [address] [place] [address], [address], 04/03/2023 14:21:32 04/03/20 23 04/03/2023 urina lysis , dipst ick Nitrite negati ve Not Available [facility] [address], [address], 04/03/2023 14:21:32 04/03/20 23 04/03/2023 urina lysis , dipst ick Urobilinogen neg Not Available [facility] [address] [place] [address], [address], 04/03/2023 14:21:32 04/03/20 23 04/03/2023 urina lysis , dipst ick Protein neg Not Available [facility] [address], [address], 04/03/2023 14:21:32 04/03/20 23 04/03/2023 urina lysis , dipst ick pH 6 Not Available [facility] [address], [address], 04/03/2023 14:21:32 11/01/04/03/2023 urina lysis , dipst ick Blood neg Not Available [facility] [address] [place] [address], [address], 04/03/2023 14:21:32 04/03/20 23 04/03/2023 urina lysis , dipst ick Specific [place] 1.005 Not Available [facility] [address] [place] [address], [address], 04/03/2023 14:21:32 04/03/20 23 04/03/2023 urina lysis , dipst ick Ketone neg Not Available [facility] [address], [address], 04/03/2023 14:21:32 04/03/20 23 04/03/2023 urina lysis , dipst ick Bilirubin neg Not Available [facility] [address] [place] [address], [address], 04/03/2023 14:21:32 04/03/20 23 04/03/2023 urina lysis , dipst ick Glucose neg Not Available [facility] [address], [address], 04/03/2023 14:21:32 04/03/20 23 04/03/2023 urina lysis , dipst ick Appearance clear they were both Not Available [facility] [address] [place] [address], [address], 04/03/2023 14:21:32 04/03/20 23 04/03/2023 urina lysis , dipst ick Color yellow Not Available [facility] [address] [place] [address], [address], 04/03/2023 14:21:32 04/03/20 23 04/03/2023 rapid SARS CoV 2 Ag, QL IA, respi rator y speci men rapid SARS CoV 2 Ag, QL IA, respiratory specimen positi ve Not Available [facility] [address] [place] [address], [address], 04/03/2023 14:19:58 Result Notes None recorded. Medical [...] Not available Not available Not available 04/03/2023 80886 05 SNOMED Not Available [facility] - production 4 03:57:53 3697 Topamax medicatio n Not available Not available Not available 04/03/2023 50687 3 RxNorm Esther Weston MD [address] [place] [address],[address], [place], [address], [employer] 3 14:18:48 3698 Imitrex medicatio n Not available Not available Not available 04/03/2023 35698 3 RxNorm Esther Weston MD [address] [place] [place] [address],[address], [place], [address], [employer] 3 14:18:55 Medications Name Sig Start Date [...] Available No t Available FreeStyle Jt 2 [place] USE DIRECTED EVERY 8 HOURS active Not [...] [degF] 136 mm[Hg] 78 mm[Hg] Not Available [employer] 3 16:51:43 Date Recorded Body temperature Oxygen saturation Oxygen saturation in Arterial blood by Pulse oximetry Body weight Respiratory rate Body height Heart rate Systolic blood pressure Diastolic blood pressure Provider Name and Address Organization Details Last Updated DateTime 3 98.1 [degF] 96 % 96 % 04166.4 g 18 /min 152.4 cm 88 /min 114 mm[Hg] 82 mm[Hg] Not Available [employer] 3 13:28:41 Date Recorded Oxygen saturation Oxygen saturation in Arterial blood by Pulse oximetry Body temperature Respiratory rate Heart rate Systolic blood pressure Diastolic blood pressure Provider Name and Address Organization Details Last Updated DateTime 3 95 % 95 % 100.5 [degF] 16 /min 93 /min 128 mm[Hg] 76 mm[Hg] Not Available [employer] 3 13:52:12 Date Recorded Body height Body mass index (BMI) Body weight Provider Name and Address Organization Details Last Updated DateTime 04/03/2023 152.4 cm 39.1 kg/m2 66735.47 g Esther Weston MD [address] [place] [address],[address], [place], [address], [place] [employer] 04/03/2023 14:35:10 Date Recorded Oxygen saturation Oxygen saturation in Arterial blood by Pulse oximetry Body temperature Respiratory rate Heart rate Systolic blood pressure Diastolic blood pressure Provider Name and Address Organization Details Last Updated DateTime 4 97 % 97 % 98.5 [degF] 16 /min 86 /min 132 mm[Hg] 84 mm[Hg] Not Available [employer] 4 14:22:20 Social History None recorded. Functional Status None recorded. Mental Status None recorded. Family History Nothing Reported. Medical History No medical history recorded. Gynecological HistoryNo gynecological history recorded. Obstetrics History GPAL:G 0 P 0 0 0 0 Past Encounters Encounter ID Performer Location Encounter Start Date Encounter Closed Date Diagnosis/Indication Diagnosis SNOMED-CT Code Diagnosis ICD10 Code [id number] RADHA SHIELDS MD [facility] [employer] [address] [place] [phone] 04/01/2023 16:51:41 04/02/2023 14:54:05 Hyperglycemia 19433102 R73.9 [id number] Tamie Bridges MD [facility] [address] [place], [place] [phone] 04/02/2023 13:28:36 04/02/2023 15:00:10 Hyperglycemia 21642565 R73.9 [id number] Esther Weston MD [facility] [address] [place] [address] 0 04/03/2023 13:52:09 04/03/2023 22:25:35 Hypokalemia 19030930 E87.6 COVID-19 412339738 U07.1 [id number] Oneida Casper MD [facility] [address] [place] [address] 0 10/02/2023 14:22:17 10/03/2023 11:26:47 Headache 00398486 R51.9 Health Concerns Section Related Observation LastModified by Organization Detai ls LastModified Time None Recorded Concern Status LastModified by Organization Details LastModified Time None Recorded Advance Directives Directive None Recorded Payers Encounter Date Sequence Insurance Name Policy Number Policy Chin Covered Member ID Chin Member ID Guarantor Name 04/01/2023 1 FORMERLY [facility] [employer] - DOS ON OR AFTER 2022 - DUAL ELIGIBLE - RESIDENTIAL OPTIONS AND ONE CARE (MEDICARE REPLACEMENT/ADV ANTAGE - HMO) Ramona Suarez [id number] Ramona Suarez 04/02/2023 1 FORMERLY [facility] [employer] - DOS ON OR AFTER 2022 - DUAL ELIGIBLE - RESIDENTIAL OPTIONS AND ONE CARE (MEDICARE REPLACEMENT/ADV ANTAGE - HMO) Ramona Suarez [id number] Ramona Suarez 04/03/2023 1 [facility]MERLY [facility] [employer] - DOS ON OR AFTER 2022 - DUAL ELIGIBLE - RESIDENTIAL OPTIONS AND ONE CARE (MEDICARE REPLACEMENT/ADV ANTAGE - HMO) Ramona Suarez [id number] Ramona Suarez 10/02/2023 1 [facility]MER[facility] [employer] - DOS ON OR AFTER 2022 - DUAL ELIGIBLE - RESIDENTIAL OPTIONS AND ONE CARE (MEDICARE REPLACEMENT/ADV ANTAGE - HMO) Ramona Suarez [id number] Ramona Suarez Notes Date Note Type Note [...] ................... ................... ................... ................... ................... ................... ........ Pipe Maker Note From Davidson Baptiste: Dispatched for the female green party experiencing flu-like symptoms, Covid-19 positive as of 03/24/23. Encountered patient supine and conscious in bed with family present, family presents a positive Covid-19 at-home test which reads positive; family expresses the [facility] During exam, patient disclosed that she is an insulin dependent diabetic and has not taken her insulin since receiving the first positive test result back on 03/24/23. Patient presents personal glucometer device that reads 'Hi'. [facility] consulted for treatment plan. Skin warm, dry and of appropriate color for ethnicity. Head and neck free of trauma and edema. PERRL. -JVD. Breath sounds present, clear and equal bilaterally. Abdomen soft, non-tender and non-distended. Extremities free of trauma and edema. 4 lead EKG exhibits a sinus rhythm with no present ectopy. 20G IV established in left forearm; BGL Hi. Per [facility] I-stat performed and exhibited a glucose of over 700 mg/DL and a K+ of 3.4. [facility] ordered for patient to self administered 20units of her Tresiba sq. 1L lactated ringers administered via bolus. 40 mEq PO K+ administered. Patient to be transported to [facility] ED for further work-up. [place] [address] provided transport, this technical writer accompanied patient to [facility]. Patient monitored for change in status while en route to [facility], with none noted; remained alert and oriented throughout contact. ................... ................... ................... ................... ................... ................... ................... ........ Disposition: Fulfilled RADHA SHIELDS MD [address] [facility],[address], [place], [address], [employer] 04/01/2023 19:20:47 04/02/2023 text/html HPI: Hx: Migraines. Patient today with continued elevated BG 450 via Fingerstick. Seen in [facility] ED last night declined admission. Restarted Tresiba as she had independently stopped it when diagnosed with Covid on 03/24/23. This morning took Tresiba 28 units. Took fluids and taking advil for headache and no neuro deficit. ................... ................... ................... ................... ................... ................... ................... ........ [facility] Nursing Assessment: Comments: Reviewed. No further information needed to process visit. Seng Lorenzo RN ................... ................... ................... ................... ................... ................... ................... ........ Pipe Maker Note From Herman Navarro: Upon arrival, pt [...] giving herself 4 neb treatments a day. [facility] contacted and pt was administered 40mg potassium oral and was advised to administer a one time dose of 10 units of her insulin in addition to the insulin she is taking per day. Pt told to contact PCP in the morning. Pipe Maker Allergies: Aspirin, Penicillin ................... ................... ................... ................... ................... ................... ................... ........ Disposition: Fulfilled Tamie Bridges MD [address] [facility],[address], [place], [address], [employer] 04/02/2023 14:11:02 04/03/2023 text/html [facility] Nursing Assessment: Reason For Request: Follow up visit from 04/02 Chief Complaints: Diabetes Related, Electrolyte Imbalance, Medication Related PMH: COPD/Asthma, Diabetes Allergies: Aspirin, Penicillin Comments: [facility] Remarks 53 year old female with DM2, [...] elevated BG 450 via Fingerstick. 04/01 in [facility] ED last night declined admission. Restarted [...] 40 mEq of potassium and sent to [facility]. She reports she was given 10 units [...] ................... ................... ................... ................... ................... ................... ........... Pipe Maker Note From Davidson Baptiste: Dispatched to the call address for the female with diabetic issue. Pt was seen on Saturday by this senior it security analyst. Pt was found to be hyperglycemic (>700). Pt was given 1L LR, 40mEq of potassium and sent to the ED. Pt left AMA when advised to be admitted to the hospital. Pt was seen yesterday by a different senior it security analyst and given more potassium. Pt states [...] ........ Disposition: Fulfilled Esther Weston MD [address] [facility],[address], [place], [address], [employer] 04/03/2023 14:42:14 10/02/2023 text/html HPI: HX: ETOH abuse in remission. NO history of seizure.Patient called to report a seizure as witnessed by her this morning at 730am. No details given. Hung up on Interprter x 3 agreed to home CCA visit.DEclined 911 ED x 3. ................... ................... ................... ................... ................... ................... ................... ........ [facility] Nurse Triage Notes (Rosa Isela Hsieh): Comments: HPI reviewed, patient called w/ Employment Office Clerk. Smoking Pipe Mounter verified the member's name//address and phone number. [...] reports this has never happened before. This technical writer strongly encouraged member to present to the emergency room for further work up. Patient declined going to the ED or calling 911 multiple times. Pt reported she is holding off on going (to the ED) and if it comes to the point of needing help she will get it. This technical writer explained to member that [facility] would not be able to properly work [...] migraines, [facility]Education provided on the response time and the member was advised to monitor reported s/s and seek emergency treatment if needed. Pipe Maker POC Test Results from Moshe Grewal - [facility] Blood Glucose Measurement (1) [11:37] Blood Glucose: 221 mg/dL ................... ................... ................... ................... ................... ................... ................... ........ Pipe Maker Note From Moshe Grewal: Dispatched to the [...] after to inform them of the event. [facility] contacted and informed and noted if the pt. did not want to be seen in the ER to just make sure she called if conditions worsened. all times are approx.report completed by henrry grewal. ................... ................... ................... ................... ................... ................... ................... ........ Disposition: Fulfilled Oneida Casper MD [address] [facility],[address], [place], [address], [employer] [facility] 10/02/2023 14:36:43 OBGyn Episode No OBEpisode recorded.
--- OUTSIDE RECORDS SUMMARY | 2024-05-13 19:34 | XMS_ITS ---
Author Organization [facility] liance Address [address] [place] [address] Care Team Providers Care Drama Therapist Name Role Phone Isabel Lewis Primary Care Provider Unavaila ble Clinical, Operations Unavailable Unavailable REASON FOR VISIT COVID-19 Screening Encounters Encounter Location Date Provider Diagnosis [facility] [address] [place] [address] 04/08/2023 Operations Clinical PLAN OF TREATMENT No [...]
== END 2024-05-12 10:40 | disposition home or self-care (01) ==
PROVIDERS: PCP Family Medicine; Visit Provider Dietitian, Registered
DX: E11.65 Type 2 diabetes mellitus with hyperglycemia (principal)

== ENCOUNTER → 2024-05-12 09:46 | Outpatient (BNVA) | payer OTHER, SELFPAY | PROVIDERS: PCP Family Medicine; Visit Provider Dietitian, Registered | DX: E11.65 Type 2 diabetes mellitus with hyperglycemia (principal) | CPT/HCPCS: 97803 ==

== ENCOUNTER 2024-06-18 13:04 | Inpatient (IN) | payer OTHER, SELFPAY ==
[2024-06-18] VITALS (10 sets, daily range): BP systolic 100–159; BP diastolic 58–99; PULSE 79–95; RESP 14–22; TEMP 36.6; O2SAT 83–98; BMI 30.9
--- NOTE | ~2024-06-18 | XR_ITS ---
EXAMINATION: XR CHEST CLINICAL INFORMATION: SOB COMPARISON: X-ray dated July 27, 2022. TECHNIQUE: 2 views of the chest were obtained. FINDINGS: Pulmonary reticular pattern. Indistinct margins in the perihilar regions with haziness more conspicuous on the right side. No pleural effusion. No pneumothorax. Cardiomediastinal silhouette appears mildly prominent. Multilevel thoracic and upper lumbar spondylosis. Osteopenia versus osteoporosis. Vascular clips in the upper abdomen on the lateral projection. XR/XR chest 2V IMPRESSION: Consider pulmonary edema in the correct clinical settings. Alternative diagnosis of acute inflammatory versus infectious small airway disease. Electronically signed by: Joey Camarillo MD 06/18/2024 01:47 PM EST
--- NOTE | 2024-06-18 13:27 | ED.ALLEREA ---
HPI - Allergic Reaction General Chief complaint: Allergic Reaction Stated complaint: Allergic Reaction Time Seen by Provider: 06/18/24 13:11 Source: patient Mode of arrival: ambulatory History of Present Illness ED Provider: Farshad TATUM narrative: 54-year-old female with RA, current everyday smoker, history of asthma/COPD and presents after receiving her monthly infusion for her RA and afterwards developed tingling in feet and hands as well as chest tightness and difficulty breathing and staff said that she appeared red, they gave her Solu-Cortef/Benadryl/Pepcid and placed her on oxygen as she was noted to become mildly hypoxic to 87%. Patient endorses to me that she has had no illnesses recently and she denies any fevers or chills and reports some improvement. Related Data Home Medications ?Medication ?Instructions ?Recorded ?Confirmed atorvastatin 10 mg tablet (Lipitor) 10 mg PO DAILY 05/19/20 06/26/23 lorazepam 0.5 mg tablet 0.5 mg PO DAILY PRN Anxiety 05/19/20 06/26/23 metformin 500 mg tablet 500 mg PO BID 05/19/20 06/26/23 tizanidine 2 mg capsule 2 mg PO BEDTIME 05/19/20 06/26/23 duloxetine 60 mg capsule,delayed 60 mg PO BID 05/01/21 06/26/23 release baclofen 5 mg tablet 5 mg PO BID 09/06/21 06/26/23 amitriptyline 10 mg tablet 2 tab PO BEDTIME 10/09/21 06/26/23 calcium 600 mg (as 1 tab PO BID 10/09/21 06/26/23 carbonate)-vitamin D3 10 mcg (400 unit) tablet oxybutynin chloride 5 mg 1 tab PO QPM 10/09/21 06/26/23 tablet,extended release 24 hr umeclidinium 62.5 mcg/actuation 1 puff inhalation DAILY 10/09/21 06/26/23 blister powder for inhalation (Incruse Ellipta) pen needle, diabetic 32 gauge x #50 ea 11/06/21 06/26/23 (UltiCare Pen Needle) acetaminophen 650 mg 650 mg PO Q6H PRN fever 02/02/22 06/26/23 tablet,extended release aripiprazole 20 mg tablet 20 mg PO DAILY 03/01/23 06/26/23 budesonide-formoterol HFA 160 2 puff inhalation BID 03/01/23 06/26/23 mcg-4.5 mcg/actuation aerosol inhaler (Symbicort) buspirone 15 mg tablet 15 mg PO TID 03/01/23 06/26/23 folic acid 1 mg tablet 1 mg PO QAM 03/01/23 06/26/23 furosemide 80 mg tablet 80 mg PO DAILY 03/01/23 06/26/23 magnesium oxide 400 mg (241.3 mg 400 mg PO DAILY 03/01/23 06/26/23 magnesium) tablet melatonin 5 mg tablet mg PO 03/01/23 06/26/23 multivitamin-iron sulfate 15 tab PO 03/01/23 06/26/23 mg-folic acid 400 mcg tablet (Tab-A-Manjeet Multivitamin w-iron) gabapentin 300 mg capsule mg PO TID 03/04/23 06/26/23 albuterol sulfate 2.5 mg/3 mL mg inhalation 04/30/23 06/26/23 (0.083 %) solution for nebulization albuterol sulfate 90 mcg/actuation inhalation 04/30/23 06/26/23 aerosol inhaler (Ventolin HFA) divalproex 500 mg tablet,extended mg PO 04/30/23 06/26/23 release 24 hr insulin degludec 200 unit/mL (3 unit subcut 04/30/23 06/26/23 mL) subcutaneous pen (Tresiba FlexTouch U-200 insulin) meclizine 25 mg tablet 25 mg PO BID PRN 04/30/23 06/26/23 glipizide 10 mg tablet, extended 10 mg PO DAILY 09/30/23 release 24 hr omeprazole 20 mg capsule,delayed 40 mg PO BID 09/30/23 release riboflavin (vitamin B2) 100 mg 100 mg PO ONCE 09/30/23 tablet tiotropium bromide 2.5 2 puff inhalation DAILY 11/29/23 mcg/actuation mist for inhalation (Spiriva Respimat) empagliflozin 25 mg tablet 25 mg PO DAILY 01/20/24 (Jardiance) flash glucose sensor (FreeStyle #1 ea 01/20/24 Jt 2 Sensor kit) polyethylene glycol 3350 17 17 g PO DAILY 01/20/24 gram/dose oral powder quetiapine 200 mg tablet 200 mg PO BEDTIME 01/20/24 semaglutide 2 mg/dose (8 mg/3 mL) mg subcut 01/20/24 subcutaneous pen injector (Ozempic) sodium chloride 0.65 % nasal spray spray intranasal 01/20/24 aerosol (Deep Sea Nasal) Previous Rx's ?Medication ?Instructions ?Recorded nystatin 100,000 unit/gram topical 1 appl topical BID #30 grams 07/27/22 ointment leg brace #1 ea 03/04/23 diclofenac sodium 1 % topical gel 2 g topical QID #100 grams 06/26/23 leflunomide 20 mg tablet 20 mg PO QAM #90 tabs 06/15/24 Allergies Allergy/AdvReac Type Severity Reaction Status Date / Time sumatriptan [From IMITREX] Allergy Severe SYNCOPE Verified 06/18/24 13:11 Penicillins [PENICILLINS] Allergy Intermediate SHORTNESS Verified 06/18/24 13:11 OF BREATH penicillin V Allergy Unknown swelling, Verified 06/18/24 13:11 rash, pruritis topiramate [From TOPAMAX] AdvReac Severe OVERDOSED Verified 06/18/24 13:11 Review of Systems Review of Systems: Pertinent positives and negatives as stated in HPI PMFSH Past Medical History Source: nursing notes reviewed Medical History Osteoarthritis (arthritis due to wear and tear of joints) Major depressive disorder PTSD (post-traumatic stress disorder) CAP (community acquired pneumonia) Fibromyalgia Asthma Chronic mixed headache syndrome Obstructive sleep apnea Diabetes Bipolar disorder Surgical History Hx of colonoscopy Hx of cholecystectomy H/O shoulder surgery Family History Family History Mother Arthritis Asthma Diabetes Social History Social History Alcohol intake: former Patient Tobacco Use Status: Current everyday Tobacco user Cigarettes Per Day: 15 Years Smoked: 45 Smoked in Last 30 Days: Yes Use of substances other than those prescribed or required for medical reasons: No Advance Directives: No Advance Directives Information Provided: Yes Do you have a plan to hurt others: No Plan Patient : No Physical Exam ED Vital Signs: Vital Signs - 24 hr 06/18/24 13:08 06/18/24 13:24 06/18/24 13:35 Pulse Rate 88 95 84 Respiratory Rate 22 H 16 18 Blood Pressure 152/92 H 152/99 H 159/94 H Pulse Oximetry 87 L 97 96 Oxygen Delivery Method Room Air Nasal Cannula Nasal Cannula Oxygen Flow Rate 2 1 06/18/24 13:59 06/18/24 14:32 06/18/24 14:32 Pulse Rate 89 79 Respiratory Rate 16 14 Blood Pressure 142/85 H 132/74 Pulse Oximetry 90 L 83 L 96 Oxygen Delivery Method Room Air Room Air Nasal Cannula Oxygen Flow Rate 1 06/18/24 15:26 Pulse Rate 87 Respiratory Rate 15 Blood Pressure 158/85 H Pulse Oximetry 95 Oxygen Delivery Method Nasal Cannula Oxygen Flow Rate 2 BMI result Body Mass Index 30.9 VITAL SIGNS: Reviewed. GENERAL: Well developed, well nourished, in no acute distress. HEAD: Normocephalic/atraumatic EYES: PERRLA, EOMI EARS: Ext canals without abnormality NOSE: Nares patent bilateral OROPHARYNX: no oral lesions noted, posterior pharynx clear, no lip/tongue/facial swelling, posterior pharynx is clear without edema NECK: Supple, no adenopathy LUNGS: Bibasilar decrease in breath sounds with some expiratory wheeze noted, no stridor, no tachypnea SpO2<87> improve with 2 L via nasal cannula CARDIOVASCULAR: Regular rate and rhythm without noted murmurs, no JVD or lower extremity edema. ABDOMEN: Soft, non-tender, non-distended with bowel sounds. MUSCULOSKELETAL: No tenderness, deformities, or effusions noted on gross inspection. EXTREMITIES: No cyanosis, clubbing or edema. SKIN: Inspection of the skin reveals no rashes NEUROLOGIC: Alert and oriented x 4. Strength and sensation to light touch were grossly intact x 4. Medications Administered Discontinued Medications Generic Name Dose Route Start Last Admin Trade Name Freq PRN Reason Stop Dose Admin Furosemide 20 mg 06/18/24 14:33 06/18/24 14:39 Furosemide 20 Mg/2 Ml Vial IVPUSH 06/18/24 14:34 20 mg ONCE ONE Administration Protocol Medical Decision Making Medical Decision Making [facility] Narrative: 1333: 54-year-old female with history and clinical presentation, DD DX: Possible medication allergic reaction, possible COPD exacerbation, viral illness, pneumonia. EKG: Sinus rhythm, HR-82, no STEMI, RI/QRS are within normal limits, QTC is noted to be mildly prolonged. Patient received Solu-Cortef, Benadryl, Pepcid at the infusion center. 1356: On re-evaluation patient is feeling better, I removed the oxygen and will evaluate respiratory status. Chest x-ray demonstrates evidence of interstitial edema likely consistent with allergic reaction. I reviewed and interpreted all investigations and there is a noninfectious leukocytosis as well as a stable anemia and no thrombocytopenia. VBG does not demonstrate any respiratory acidosis and no hypercapnia. There is no demonstrate SANDEEP/electrolyte or liver enzyme derangements. BNP is within normal limits, I sensitivity troponin is undetectable. INTERVENTION: Lasix 20 mg, My interpretation is patient experienced an acute pulmonary flash secondary to medication, there is no evidence of ACS or CHF exacerbation, however patient continues to require supplemental oxygen though very low amount. Will attempt 1 more titration off as overall clinical appearance is that she appears well, however if she is unable to tolerate this she will be admitted. Patient unable to tolerate being off of oxygen again, she is aware that she will be admitted. I discussed with inpatient hospitalist who accepts admission. Differential Diagnosis Differential Diagnoses: The differential diagnosis associated with the presentation includes See above Admission/Observation Consideration of admission/observation: Escalation of care including admission/observation considered Patient meets inpatient level of care for hypoxia Consult Healthcare Provider Management of the patient was discussed with: Hospitalist See above Lab Data MDM Lab Attestation statement: I reviewed the patient's lab results. See above 06/18/24 14:15 06/18/24 14:15 Labs: Lab Results 06/18/24 06/18/24 Range/Units 14:15 14:20 WBC 16.9 H (4.8-10.8) X10*3/uL RBC 3.75 L (4.20-5.50) X10*6/uL Hgb 10.3 L (12.0-16.0) g/dl Hct 32.1 L (37.0-47.0) % MCV 85.6 (80.0-98.0) fL MCH 27.5 (27.0-33.0) pg MCHC 32.1 (31.0-35.0) g/dl RDW 17.2 H (11.0-16.0) % Plt Count 338 (160-400) X10*3/uL MPV 9.7 (9.4-12.3) fL Immature Gran % (Auto) 0.5 H (0.0-0.4) % Neut % (Auto) 87.8 H (45-73) % Lymph % (Auto) 5.2 L (20-40) % [place] % (Auto) 5.5 (2-11) % Eos % (Auto) 0.4 (0-4) % Baso % (Auto) 0.6 (0-2) % Lymph # (Auto) 0.9 L (1.2-4.9) X10*3/uL [place] # (Auto) 0.9 (0.1-1.2) X10*3/uL Eos # (Auto) 0.1 (0.0-0.4) X10*3/uL Baso # (Auto) 0.1 (0.0-0.2) X10*3/uL Abs Immat Gran (auto) 0.08 H (0.00-0.03) X10*3/uL Absolute Neuts (auto) 14.8 H (2.0-8.3) x10*3/uL Absolute Nucleated RBC 0.000 (0.0-0.012) X10*3/uL Nucleated RBC % (auto) 0.0 (0.0-0.2) /100WBC VBG pH 7.54 H (7.32-7.43) VBG pCO2 27 mmHg VBG pO2 65 mmHg VBG HCO3 23 (22-26) mmol/L VBG O2 Saturation 90.0 % VBG Base Excess 1.6 mmol/L Sodium 142 (135-145) mmol/L Potassium 3.4 (3.3-5.1) mmol/L Chloride 112 H (96-108) mmol/L Carbon Dioxide 23 (22-29) mmol/L Anion Gap 10 L (12-20) BUN 7 L (9-16) mg/dL Creatinine 0.78 (0.5-1.4) mg/dL Estim Creat Clear Calc 83.2 Estimated GFR > 60 Random Glucose 188 H (60-115) mg/dL Calcium 7.9 L (8.4-10.2) mg/dL Total Bilirubin 0.3 (0.0-1.0) mg/dL AST 16 (5-31) U/L ALT < 6 (0-31) U/L Alkaline Phosphatase 130 H (39-117) U/L Troponin I High Sens < 2.7 (<3.5-17.0) ng/L B-Natriuretic Peptide 23 (<100) pg/mL Total Protein 6.5 (6.5-8.0) g/dL Albumin 3.4 L (3.5-5.0) g/dL Influenza Type A (PCR) NEGATIVE (Negative) Influenza Type B (PCR) NEGATIVE (Negative) RSV RNA Qual (PCR) NEGATIVE (Negative) SARS-CoV-2 RNA (RT-PCR) NEGATIVE (Negative) Independent Interpretation I performed an independent interpretation of an: EKG and Plain X-Ray Interpretation: See above Radiology Impression Discussion of test interpretation with radiology: I have reviewed the radiologist's reading. Radiologist Impression: See above External Record Review External record reviewed: Prior outpatient labs and Prior outpatient radiology Chronic Conditions Patient?s care impacted by: Hypertension Critical Care Time Critical Care Time Critical Care Time: Yes Total Critical Care Time: 30 Attestation: I personally attest to this time spent taking care of the patient. Discharge Plan Discharge Clinical Impression: Flash pulmonary edema, Drug side effects, Hypoxia Patient Disposition: Admitted As Inpatient Print Language: Martiniquais
--- NOTE | 2024-06-18 13:40 | PC.NURSE ---
a&ox4. vss and up to date aside from being slightly sinus tachycardic on the monitor. pt presents to the ED from infusion center after receiving infusion for rheumatoid arthritis. pt verbalizes she was getting infusion when she had sudden numbness, tingling, chest tightness and feeling like her throat was closing. staff at infusion center noted pt to be hypoxic @ 87%. on RA baseline. 22gIV in the left forearm prior to ED arrival. pt medicated prior to ED arrival as well. upon ED arrival - pt seemed to be in no respiratory distress. originally noted to be 87% on RA. pt placed on 2L via NC w/ good effect. pt waiting to go to xray at this time.
[2024-06-18 14:22] LABS: MANUAL DIFF FLAG NO
[2024-06-18 14:22] LABS: Venous Blood Gas Refer to POC result
[2024-06-18 14:23] LABS: Basophils Absolute Auto 0.1 X10*3/uL (0.0-0.2); Basophils Percent Auto 0.6 % (0-2); Eosinophils Absolute Auto 0.1 X10*3/uL (0.0-0.4); Eosinophils Percent Auto 0.4 % (0-4); Hematocrit 32.1 % (37.0-47.0); Hemoglobin 10.3 g/dl (12.0-16.0); Imm Gran Abs Auto 0.08 X10*3/uL (0.00-0.03); Imm Gran Pct Auto 0.5 % (0.0-0.4); Lymphocytes Absolute Auto 0.9 X10*3/uL (1.2-4.9); Lymphocytes Percent Auto 5.2 % (20-40); Mean Corpuscular HGB Conc 32.1 g/dl (31.0-35.0); Mean Corpuscular Hemoglobin 27.5 pg (27.0-33.0); Mean Corpuscular Volume 85.6 fL (80.0-98.0); Mean Platelet Volume 9.7 fL (9.4-12.3); Monocytes Absolute Auto 0.9 X10*3/uL (0.1-1.2); Monocytes Percent Auto 5.5 % (2-11); Neutrophils Absolute Auto 14.8 x10*3/uL (2.0-8.3); Neutrophils Percent Auto 87.8 % (45-73); Platelet Count 338 X10*3/uL (160-400); Red Blood Count 3.75 X10*6/uL (4.20-5.50); Red Cell Distribution Width 17.2 % (11.0-16.0); White Blood Count 16.9 X10*3/uL (4.8-10.8)
[2024-06-18 14:26] LABS: VBG Base Excess 1.6 mmol/L; VBG HCO3 23 mmol/L (22-26); VBG pCO2 27 mmHg; VBG pH 7.54 (7.32-7.43); VBG pO2 65 mmHg
--- NOTE | 2024-06-18 14:34 | ECG_ITS ---
Test Reason : CHEST PAIN Blood Pressure : */* mmHG Vent. Rate : 82 BPM Atrial Rate : 82 BPM P-R Int : 136 ms QRS Dur : 84 ms QT Int : 426 ms P-R-T Axes : 50 29 70 degrees QTcB Int : 497 ms Normal sinus rhythm Nonspecific ST abnormality Prolonged QT Abnormal ECG When compared with ECG of 20-Apr-2011 08:57, MANUAL COMPARISON REQUIRED PREVIOUS ECG IS INCOMPATIBLE Referred By: Frances Yen Electronically Signed By: REINA CRISOSTOMO MD
[2024-06-18] MEDS: Furosemide 20 MG/2 ML VIAL IVPUSH (14:39)
[2024-06-18 14:41] LABS: Alanine Aminotransferase < 6 U/L (0-31); Albumin Level 3.4 g/dL (3.5-5.0); Alkaline Phosphatase 130 U/L (39-117); Anion Gap 10 (12-20); Aspartate Amino Transferase 16 U/L (5-31); Bilirubin Total 0.3 mg/dL (0.0-1.0); Blood Urea Nitrogen 7 mg/dL (9-16); Calcium 7.9 mg/dL (8.4-10.2); Carbon Dioxide 23 mmol/L (22-29); Chloride 112 mmol/L (96-108); Creatinine Clr Calc Pharmacy 83.2; Estimated Glomerular Filt Rate > 60; Glucose Random 188 mg/dL (60-115); Potassium 3.4 mmol/L (3.3-5.1); Sodium 142 mmol/L (135-145); Total Protein 6.5 g/dL (6.5-8.0)
--- NOTE | 2024-06-18 14:43 | PC.NURSE ---
pt noted to desat to 83% on RA w/ good read. when assessing pt, pt seemed to be in no respiratory distress. no sob/wob noted. respirations even/unlabored. pt turned/repositioned upright to promote patent airway. pt originally placed on 4L via NC and then titrated back to 1L via NC as pt does not require oxygen baseline. provider notified/aware of findings. medication administered per provider order. effectiveness pending.
[2024-06-18 14:57] LABS: Troponin-I High Sensitivity < 2.7 ng/L (<3.5-17.0)
[2024-06-18 14:59] LABS: Influenza A PCR NEGATIVE (Negative); Influenza B PCR NEGATIVE (Negative); Resp Syncy Virus RNA Qual PCR NEGATIVE (Negative); SARS COV2 PCR INHOUSE NEGATIVE (Negative)
[2024-06-18 15:01] LABS: B Type Natriuretic Peptide 23 pg/mL (<100)
--- NOTE | 2024-06-18 16:09 | PM.IMHP ---
History of Present Illness Date of Service: 06/18/24 Chief Complaint: sob 54F PMH moderate persistent asthma/COPD, interstitial lung disease, rheumatoid arthritis, diabetes, chronic diastolic CHF, bipolar, TRINIDAD presented with shortness of breath. Patient was at [facility] getting infusion of actemra, this was her 2nd dose. She suddenly began to feel tingling in her hands, panicky, chest pressure, shortness of breath, wheezing. Noted to be hypoxic to 87% on room air, was given Solu-Cortef, Benadryl, Pepcid. Review of Systems Review of Systems: Yes all other systems are reviewed and are negative [facility] Medical History Osteoarthritis (arthritis due to wear and tear of joints) Major depressive disorder PTSD (post-traumatic stress disorder) CAP (community acquired pneumonia) Fibromyalgia Asthma Chronic mixed headache syndrome Obstructive sleep apnea Diabetes Bipolar disorder Family History Mother Arthritis Asthma Diabetes Surgical History Hx of colonoscopy Hx of cholecystectomy H/O shoulder surgery Social History Alcohol intake: former Patient Tobacco Use Status: Current everyday Tobacco user Cigarettes Per Day: 15 Years Smoked: 45 Smoked in Last 30 Days: Yes Use of substances other than those prescribed or required for medical reasons: No Advance Directives: No Advance Directives Information Provided: Yes Do you have a plan to hurt others: No Plan Patient : No Meds Allergies Allergy/AdvReac Type Severity Reaction Status Date / Time sumatriptan [From IMITREX] Allergy Severe SYNCOPE Verified 06/18/24 13:11 Penicillins [PENICILLINS] Allergy Intermediate SHORTNESS Verified 06/18/24 13:11 OF BREATH penicillin V Allergy Unknown swelling, Verified 06/18/24 13:11 rash, pruritis topiramate [From TOPAMAX] AdvReac Severe OVERDOSED Verified 06/18/24 13:11 Active Medications: Current Medications Albuterol/Ipratropium (Albuterol/Iprat 2.5/0.5mg 3 Ml Ampul.Neb) 3 ml INHALE RQ4H WHILE AWAKE ADILENE Glucose (Glucose Gel 15 Gm Gel..Gram.) 15 gm PO Q15M PRN; Protocol PRN Reason: per Hypoglycemia Standing Ord. Dextrose (D10) 250 mls @ 750 mls/hr IV Q15M PRN; Protocol PRN Reason: per Hypoglycemia Standing Ord. Insulin Human Lispro (Insulin Lispro 100 Unit/Ml 3 Ml Vial) 0 unit SUBCUT QIDACHS ADILENE; Protocol Prednisone (Prednisone 20 Mg Tablet) 40 mg PO DAILY [facility] Home Medications ?Medication ?Instructions ?Recorded ?Confirmed ?Last Taken ?Type atorvastatin 10 mg tablet (Lipitor) 10 mg PO DAILY 05/19/20 06/26/23 Unknown History lorazepam 0.5 mg tablet 0.5 mg PO DAILY PRN Anxiety 05/19/20 06/26/23 Unknown History metformin 500 mg tablet 500 mg PO BID 05/19/20 06/26/23 Unknown History tizanidine 2 mg capsule 2 mg PO BEDTIME 05/19/20 06/26/23 Unknown History duloxetine 60 mg capsule,delayed 60 mg PO BID 05/01/21 06/26/23 Unknown History release baclofen 5 mg tablet 5 mg PO BID 09/06/21 06/26/23 Unknown History amitriptyline 10 mg tablet 2 tab PO BEDTIME 10/09/21 06/26/23 Unknown History calcium 600 mg (as 1 tab PO BID 10/09/21 06/26/23 Unknown History carbonate)-vitamin D3 10 mcg (400 unit) tablet oxybutynin chloride 5 mg 1 tab PO QPM 10/09/21 06/26/23 Unknown History tablet,extended release 24 hr umeclidinium 62.5 mcg/actuation 1 puff inhalation DAILY 10/09/21 06/26/23 Unknown History blister powder for inhalation (Incruse Ellipta) pen needle, diabetic 32 gauge x #50 ea 11/06/21 06/26/23 Unknown History (UltiCare Pen Needle) acetaminophen 650 mg 650 mg PO Q6H PRN fever 02/02/22 06/26/23 Unknown History tablet,extended release aripiprazole 20 mg tablet 20 mg PO DAILY 03/01/23 06/26/23 Unknown History budesonide-formoterol HFA 160 2 puff inhalation BID 03/01/23 06/26/23 Unknown History mcg-4.5 mcg/actuation aerosol inhaler (Symbicort) buspirone 15 mg tablet 15 mg PO TID 03/01/23 06/26/23 Unknown History folic acid 1 mg tablet 1 mg PO QAM 03/01/23 06/26/23 Unknown History furosemide 80 mg tablet 80 mg PO DAILY 03/01/23 06/26/23 Unknown History magnesium oxide 400 mg (241.3 mg 400 mg PO DAILY 03/01/23 06/26/23 Unknown History magnesium) tablet melatonin 5 mg tablet mg PO 03/01/23 06/26/23 Unknown History multivitamin-iron sulfate 15 tab PO 03/01/23 06/26/23 Unknown History mg-folic acid 400 mcg tablet (Tab-A-Manjeet Multivitamin w-iron) gabapentin 300 mg capsule mg PO TID 03/04/23 06/26/23 Unknown History albuterol sulfate 2.5 mg/3 mL mg inhalation 04/30/23 06/26/23 Unknown History (0.083 %) solution for nebulization albuterol sulfate 90 mcg/actuation inhalation 04/30/23 06/26/23 Unknown History aerosol inhaler (Ventolin HFA) divalproex 500 mg tablet,extended mg PO 04/30/23 06/26/23 Unknown History release 24 hr insulin degludec 200 unit/mL (3 unit subcut 04/30/23 06/26/23 Unknown History mL) subcutaneous pen (Tresiba FlexTouch U-200 insulin) meclizine 25 mg tablet 25 mg PO BID PRN 04/30/23 06/26/23 Unknown History glipizide 10 mg tablet, extended 10 mg PO DAILY 09/30/23 Unknown History release 24 hr omeprazole 20 mg capsule,delayed 40 mg PO BID 09/30/23 Unknown History release riboflavin (vitamin B2) 100 mg 100 mg PO ONCE 09/30/23 Unknown History tablet tiotropium bromide 2.5 2 puff inhalation DAILY 11/29/23 Unknown History mcg/actuation mist for inhalation (Spiriva Respimat) empagliflozin 25 mg tablet 25 mg PO DAILY 01/20/24 Unknown History (Jardiance) flash glucose sensor (FreeStyle #1 ea 01/20/24 Unknown History Jt 2 Sensor kit) polyethylene glycol 3350 17 17 g PO DAILY 01/20/24 Unknown History gram/dose oral powder quetiapine 200 mg tablet 200 mg PO BEDTIME 01/20/24 Unknown History semaglutide 2 mg/dose (8 mg/3 mL) mg subcut 01/20/24 Unknown History subcutaneous pen injector (Ozempic) sodium chloride 0.65 % nasal spray spray intranasal 01/20/24 Unknown History aerosol (Deep Sea Nasal) Physical Exam Vital Signs and Narrative: Vital Signs: Last Vital Signs Pulse 87 06/18/24 15:26 Resp 15 06/18/24 15:26 BP 158/85 H 06/18/24 15:26 Pulse Ox 95 06/18/24 15:26 O2 Del Method Nasal Cannula 06/18/24 15:26 O2 Flow Rate 2 06/18/24 15:26 BMI result Body Mass Index 30.9 General: AO X 3, no acute distress Resp: wheeze bilateral, no accessory muscles used CVS: S1,S2,RRR GI: soft, non tender, non distended Neuro: motor grossly intact, alert Psych: appropriate affect, appropriate insight Results Labs 06/18/24 14:15 06/18/24 14:15 Labs: Laboratory Results - last 24 hr 06/18/24 06/18/24 14:15 14:20 MCV 85.6 MCH 27.5 MCHC 32.1 RDW 17.2 H Plt Count 338 MPV 9.7 Immature Gran % (Auto) 0.5 H Neut % (Auto) 87.8 H Lymph % (Auto) 5.2 L [place] % (Auto) 5.5 Eos % (Auto) 0.4 Baso % (Auto) 0.6 Lymph # (Auto) 0.9 L [place] # (Auto) 0.9 Eos # (Auto) 0.1 Baso # (Auto) 0.1 Abs Immat Gran (auto) 0.08 H Absolute Neuts (auto) 14.8 H Absolute Nucleated RBC 0.000 Nucleated RBC % (auto) 0.0 VBG pH 7.54 H VBG pCO2 27 VBG pO2 65 VBG HCO3 23 VBG O2 Saturation 90.0 VBG Base Excess 1.6 Anion Gap 10 L Estim Creat Clear Calc 83.2 Estimated GFR > 60 Random Glucose 188 H Calcium 7.9 L Total Bilirubin 0.3 AST 16 ALT < 6 Alkaline Phosphatase 130 H Troponin I High Sens < 2.7 B-Natriuretic Peptide 23 Total Protein 6.5 Albumin 3.4 L Influenza Type A (PCR) NEGATIVE Influenza Type B (PCR) NEGATIVE RSV RNA Qual (PCR) NEGATIVE SARS-CoV-2 RNA (RT-PCR) NEGATIVE Imaging Radiologist's Impressions: Impressions Chest X-Ray 06/18/24 13:27 IMPRESSION: Consider pulmonary edema in the correct clinical settings. Alternative diagnosis of acute inflammatory versus infectious small airway disease. Electronically signed by: Joey Camarillo MD 06/18/2024 01:47 PM [facility] Assessment and Plan (1) Drug side effects: Status: Acute Plan 54F PMH moderate persistent asthma/COPD, interstitial lung disease, rheumatoid arthritis, diabetes, chronic diastolic CHF, bipolar, TRINIDAD presented with shortness of breath Acute hypoxic respiratory failure secondary to allergic reaction versus drug induced bronchospasm - moderate persistent asthma/COPD overlap and interstitial lung disease due to rheumatoid arthritis with acute decompensation Wean off O2, steroids, DuoNebs Diabetes Insulin sliding scale Chronic diastolic CHF Continue Lasix Bipolar Continue mood stabilizers TRINIDAD CPAP at night DVT prophylaxis with Lovenox Full Code Quality Stroke Does the patient have a stroke diagnosis?: No VTE Prior VTE?: No VTE Risk Level:: Medical - moderate - high VTE Device Contraindication: Treatment Not Indicated VTE Drug Contraindication: N/A - Med Ordered
--- OUTSIDE RECORDS SUMMARY | 2024-06-18 16:51 | XMS_ITS | Data Portability ---
Author Organization [facility] [place] [facility] Address [address] [place] [address] Care Team Providers Care Parts Room Assistant Name Role Phone [facility] Referring Provider HIM [facility] OTHER [facility] OTHER [phone] Assessment Encounter Date Assessment Date Assessment LastModified by Organization Details LastModified Time 04/03/2023 04/03/2023 I provided real -time medical direction via phone for this encounter, and was available for additional phone based assistance as needed. I have reviewed and agree with the Assessment and Plan as documented by the Loan Servicing Officer. Patient given the opportunity to ask questions via retail warehouse associate Advised if develops CP/severe SOB/turning blue/uncontrolle d n/v/d or black/bloody emesis or stool/ AMS/ syncope/ hi fever unresponsive to APAP to call 911- verbalized understanding of instructions Not available 04/03/2023 14:29:20 10/02/2023 10/02/2023 I provided real -time medical direction via phone for this encounter and was available for additional phone-based assistance as needed. I have reviewed and agree with the Assessment and Plan as documented by the Loan Servicing Officer. Patient given the opportunity to ask questions. [...] numbness. This service was then called. Per account development executive on the scene, no focal deficits with VSS and BG of 220. FAST exam is negative per account development executive and patient does have sensation of the [...] plasma 2022 023 [email or web address] [facility], [address] [place] [address], [phone], 17:24:50 glucose, fingerstick , blood 2022 023 MARTHA [facility], [address] [place] [address], [phone], 08:32:02 rapid SARS CoV 2 Ag, QL IA, respiratory specimen 2022 023 [email or web address] 0 [facility], [address] [place] [address], [phone], 3 14:32:45 BMP, serum or plasma 2022 023 [email or web address] 0 [facility], [address] [place] [address], [phone], 14:32:40 urinalysis, dipstick 2022 023 [email or web address] 0 [facility], [address] [place], [address], 14:32:43 Referral None recorded. Procedures None recorded. Surgeries None recorded. Imaging None recorded. Medication Orders lactated Ringers intravenous solution 2022 023 [email or web address] Not available 16:56:52 potassium chloride ER 20 mEq tablet,exte nded release 2022 023 [email or web address] Not available 17:26:55 potassium chloride 20 mEq oral packet 2022 023 [email or web address] 0 Not available 14:32:40 potassium chloride ER 20 mEq tablet,exte nded release 2022 023 [facility], [address] [place] [address], [phone], 14:30:28 Patient TargetsNo targets recorded. Patient InstructionsNo instructions recorded. Reason for Referral None Reported. Results Created Date Observation Date Name Description Value Unit Range Abnormal Flag Note LastModifiedBy Organization Detail LastModifiedTime 04/01/2004/01/2023 BMP, serum or plasm a BUN 10 Not Available [facility] [address], [address], 04/01/2023 16:52:56 04/01/2004/01/2023 BMP, serum or plasm a Ca 1.06 Not Available [facility] [address], [address], 04/01/2023 16:52:56 04/01/2004/01/2023 BMP, serum or plasm a CI- 89 Not Available [facility] [address], [address], 04/01/2023 16:52:56 04/01/2004/01/2023 BMP, serum or plasm a CRE 0.8 Not Available [facility] [address], [address], 04/01/2023 16:52:56 04/01/2004/01/2023 BMP, serum or plasm a GLU 700 Not Available [facility] [address], [address], 04/01/2023 16:52:56 04/01/20 23 04/01/2023 BMP, serum or plasm a K+ 3.4 Not Available [facility] [address], [address], 04/01/2023 16:52:56 04/01/20 23 04/01/2023 BMP, serum or plasm a Na+ 128 Not Available [facility] [address], [address], 04/01/2023 16:52:56 04/01/20 23 04/01/2023 BMP, serum or plasm a tCO2 23 Not Available [facility] [address], [address], 04/01/2023 16:52:56 04/03/20 23 04/03/2023 BMP, serum or plasm a BUN 4 Not Available [facility] [address], [address], 04/03/2023 14:21:27 04/03/20 23 04/03/2023 BMP, serum or plasm a Ca Ionize d calciu m 1.2 Not Available [facility] - [facility] [address], [address], 04/03/2023 14:21:27 04/03/20 23 04/03/2023 BMP, serum or plasm a CI- 100 Not Available [facility] [address], [address], 04/03/2023 14:21:27 04/03/20 23 04/03/2023 BMP, serum or plasm a CRE 0.8 Not Available [facility] [address], [address], 04/03/2023 14:21:27 04/03/20 23 04/03/2023 BMP, serum or plasm a GLU 259 Not Available [facility] [address], [address], 04/03/2023 14:21:27 04/03/20 23 04/03/2023 BMP, serum or plasm a K+ 3.2 Not Available [facility] [address] [place] [address], [address], 04/03/2023 14:21:27 04/03/20 23 04/03/2023 BMP, serum or plasm a Na+ 137 Not Available [facility] [address], [address], 04/03/2023 14:21:27 04/03/20 23 04/03/2023 BMP, serum or plasm a tCO2 24 Not Available [facility] [address], [address], 04/03/2023 14:21:27 04/03/20 23 04/03/2023 urina lysis , dipst ick Leukocytes neg Not Available [facility] [address] [place] [address], [address], 04/03/2023 14:21:32 04/03/20 23 04/03/2023 urina lysis , dipst ick Nitrite negati ve Not Available [facility] - [facility] [address], [address], 04/03/2023 14:21:32 04/03/20 23 04/03/2023 urina lysis , dipst ick Urobilinogen neg Not Available [facility] [address] [place] [address], [address], 04/03/2023 14:21:32 04/03/20 23 04/03/2023 urina lysis , dipst ick Protein neg Not Available [facility] [address], [address], 04/03/2023 14:21:32 04/03/20 23 04/03/2023 urina lysis , dipst ick pH 6 Not Available [facility] [address], [address], 04/03/2023 14:21:32 11/01/04/03/2023 urina lysis , dipst ick Blood neg Not Available [facility] [address] [place] [address], [address], 04/03/2023 14:21:32 04/03/20 23 04/03/2023 urina lysis , dipst ick Specific [place] 1.005 Not Available [facility] [address] [place] [address], [address], 04/03/2023 14:21:32 04/03/20 23 04/03/2023 urina lysis , dipst ick Ketone neg Not Available [facility] [address], [address], 04/03/2023 14:21:32 04/03/20 23 04/03/2023 urina lysis , dipst ick Bilirubin neg Not Available [facility] [address] [place] [address], [address], 04/03/2023 14:21:32 04/03/20 23 04/03/2023 urina lysis , dipst ick Glucose neg Not Available [facility] [address], [address], 04/03/2023 14:21:32 04/03/20 23 04/03/2023 urina lysis , dipst ick Appearance clear they were both Not Available [facility] [address] [place] [address], [address], 04/03/2023 14:21:32 04/03/20 23 04/03/2023 urina lysis , dipst ick Color yellow Not Available [facility] [address] [place] [address], [address], 04/03/2023 14:21:32 04/03/20 23 04/03/2023 rapid SARS CoV 2 Ag, QL IA, respi rator y speci men rapid SARS CoV 2 Ag, QL IA, respiratory specimen positi ve Not Available [facility] [address] [place] [address], [address], 04/03/2023 14:19:58 Result Notes None recorded. Medical [...] Not available Not available Not available 04/03/2023 43506 05 SNOMED Not Available [facility] - production 4 03:57:53 3697 Topamax medicatio n Not available Not available Not available 04/03/2023 70984 3 RxNorm Esther Weston MD [address] [place] [address],[address], [place], [address], [facility] 3 14:18:48 3698 Imitrex medicatio n Not available Not available Not available 04/03/2023 71643 3 RxNorm Esther Weston MD [address] [place] [address],[address], [place], [address], [employer] 3 14:18:55 Medications Name Sig Start Date [...] Available No t Available FreeStyle Jt [place] USE DIRECTED EVERY 8 HOURS active Not [...] [degF] 136 mm[Hg] 78 mm[Hg] Not Available [email or web address] 3 16:51:43 Date Recorded Body temperature Oxygen saturation Oxygen saturation in Arterial blood by Pulse oximetry Body weight Respiratory rate Body height Heart rate Systolic blood pressure Diastolic blood pressure Provider Name and Address Organization Details Last Updated DateTime 3 98.1 [degF] 96 % 96 % 36011.4 g 18 /min 152.4 cm 88 /min 114 mm[Hg] 82 mm[Hg] Not Available [email or web address] 3 13:28:41 Date Recorded Oxygen saturation Oxygen saturation in Arterial blood by Pulse oximetry Body temperature Respiratory rate Heart rate Systolic blood pressure Diastolic blood pressure Provider Name and Address Organization Details Last Updated DateTime 3 95 % 95 % 100.5 [degF] 16 /min 93 /min 128 mm[Hg] 76 mm[Hg] Not Available [facility] 3 13:52:12 Date Recorded Body height Body mass index (BMI) Body weight Provider Name and Address Organization Details Last Updated DateTime 04/03/2023 152.4 cm 39.1 kg/m2 94557.47 g Esther Weston MD [address] [place] [address],[address], [place], [address], [place] [facility] [place] [facility] 04/03/2023 14:35:10 Date Recorded Oxygen saturation Oxygen saturation in Arterial blood by Pulse oximetry Body temperature Respiratory rate Heart rate Systolic blood pressure Diastolic blood pressure Provider Name and Address Organization Details Last Updated DateTime 4 97 % 97 % 98.5 [degF] 16 /min 86 /min 132 mm[Hg] 84 mm[Hg] Not Available [facility] 4 14:22:20 Social History None recorded. Functional Status None recorded. Mental Status None recorded. Family History Nothing Reported. Medical History No medical history recorded. Gynecological HistoryNo gynecological history recorded. Obstetrics History GPAL:G 0 P 0 0 0 0 Past Encounters Encounter ID Performer Location Encounter Start Date Encounter Closed Date Diagnosis/Indication Diagnosis SNOMED-CT Code Diagnosis ICD10 Code Diagnosis Note [id number] RADHA SHIELDS MD [facility] [address] [place] [phone] 04/01/2023 16:51:41 04/02/2023 14:54:05 Hyperglycemia 85531020 R73.9 Evaluation in the field was performed by my account development executive colleague, as noted above, I provided real-time direction and supervisio n for this visit. The evaluation revealed 53 yo female with hx of Type 2 DM on Trulicity every Saturday, glipizide and Treceba 200UI/ ml who tested positive for Covid 19 on 03/24. Since then has not been taking her Trulicity and Treciba because of poor PO intake. Continue to have high grade fevers but was taking Tylenol and Ibuprofen. Per last fever 3 days ago. Had repeat Covid test again today and positive.B MP showed Glucose above 700Stable BUN/CreaAn ion gap 21Co2 23 Impression :Severe symptomati c hyperglyce seferino Plan:No acidosis on BMP but elevated gap at 21Unfortun ately pt has no short acting insulin at home. I am afraid that Treciba will take long to help with her hyperglyce miaReceive d 1 L of LR.Kcl 40 meq to allow administra tion of insulin VIJAY in the EDPt agrees to go to [facility] ED for further management of her hyperglyce seferino Primary care, consider__ _ Dispositio n We discussed the situation and I recommende d referral to the emergency department . This was based on symptomati c hypoglycem ia with BG >700, no metabolic acidosis on BMP but elevated gap. Pt has no short acting insulin at home , and needs it in addition to fluids ( s/p 1 L LR ) to prevent HHS [id number] Tamie Bridges MD Main - [address] [phone] 04/02/2023 13:28:36 04/02/2023 15:00:10 Hyperglycemia 39971189 R73.9 53 year old female being evaluated for hyperglyce seferino. Patient was seen by [facility] yesterday, recommende d ER visit for glucose level >700 and diagnosis of HHS, likely due to skipping insulin due to poor PO intake in the setting of COVID. Patient presented to ER but subsequent ly left after receiving 10 units of insulin. Today she reports feeling fine, took 28 units of her tresiba (which is her daily dose). Exam notable for normal vital signs, baseline mental status, and glucose now measuring 450. Counseled patient on risks of electrolyt e derangemen ts as glucose normalizes , and recommende d return to hospital for ongoing treatment of likely persistent HHS. Patient refusing ER, and subsequent ly declined multiple attempts at establishi ng IV access to obtain labs/admin ister fluids. Reiterated the importance of going to the ER, patient continued to refuse. Potassium 40 mEQ given prophylact ically, recommende d patient take an additional 10 units of her home insulin, with 24h follow up requested for tomorrow. I have reviewed and agree with the assessment and plan as documented by the account development executive. I provided real-time medical direction for this encounter and was immediatel y available to provide additional phone-base d assistance as needed. [id number] Esther Weston MD [facility] [address] [place] [phone] 04/03/2023 13:52:09 04/03/2023 22:25:35 Hypokalemia 14312984 E87.6 BS 259 she says is her baseline midday-eder pennington is feeling better-the hypokalemi a is normal as the blood sugar decreases- we will place her on supplement ation for the next 5 days (verified her pharmacy is [facility])-anatoliy adams is not spilling glucose or ketones-ad vised to continue her usual medication / f/u wit pcp COVID-19 985253608 U07.1 Advised to continue to rest/ stay well-hydra govind-contin ue to quarantine while is positive-s he has the ability to do rapid test at home-advis ed her to call us if she is not feeling well and needs another visit-once she turns negative on her rapid test advised she should still continue to mask around others for 5 days- has not had tylenol today- lo grade temp- advised to take tylenol 4 xper day as needed [id number] Oneida Casper MD [facility] [address] [place] [phone] 10/02/2023 14:22:17 10/03/2023 11:26:47 Headache 12074163 R51.9 Health Concerns Section Related Observation LastModified by Organization Detai ls LastModified Time None Recorded Concern Status LastModified by Organization Details LastModified Time None Recorded Advance Directives Directive None Recorded Payers Encounter Date Sequence Insurance Name Policy Number Policy Chin Covered Member ID Chin Member ID Guarantor Name 04/01/2023 1 [facility] [employer] - DOS ON OR AFTER 2022 - DUAL ELIGIBLE - FPC OPTIONS AND ONE CARE (MEDICARE REPLACEMENT/ADV ANTAGE - HMO) Ramona Suarez [id number] Ramona Suarez 04/02/2023 1 [facility] [employer] - DOS ON OR AFTER 2022 - DUAL ELIGIBLE - FPC OPTIONS AND ONE CARE (MEDICARE REPLACEMENT/ADV ANTAGE - HMO) Ramona Suarez [id number] Ramona Suarez 04/03/2023 1 [facility] [employer] - DOS ON OR AFTER 2022 - DUAL ELIGIBLE - FPC OPTIONS AND ONE CARE (MEDICARE REPLACEMENT/ADV ANTAGE - HMO) Ramona Suarez [id number] Ramona Suarez 10/02/2023 1 [facility] [employer] - DOS ON OR AFTER 2022 - DUAL ELIGIBLE - FPC OPTIONS AND ONE CARE (MEDICARE REPLACEMENT/ADV ANTAGE - HMO) Ramona Suarez [id number] Ramona Suarez Notes Date Note Type Note Provider Name and Address Organization Details Recorded Time 04/01/2023 text/html HPI: Call to [facility]. Reports having ASHWIN sx on 03/24/23. Pt [...] ................... ................... ................... ................... ................... ................... ........ Loan Servicing Officer Note From Davidson Baptiste: Dispatched for the female libertarian experiencing flu-like symptoms, Covid-19 positive as of 03/24/23. Encountered patient supine and conscious in bed with family present, family presents a positive Covid-19 at-home test which reads positive; family expresses the test was performed just prior to [facility] contact. During exam, patient disclosed that she is an insulin dependent diabetic and has not taken her insulin since receiving the first positive test result back on 03/24/23. Patient presents personal glucometer device that reads 'Hi'. [facility] consulted for treatment plan. Skin warm, dry and of appropriate color for ethnicity. Head and neck free of trauma and edema. PERRL. -JVD. Breath sounds present, clear and equal bilaterally. Abdomen soft, non-tender and non-distended. Extremities free of trauma and edema. 4 lead EKG exhibits a sinus rhythm with no present ectopy. 20G IV established in left forearm; BGL Hi. Per [facility] I-stat performed and exhibited a glucose of over 700 mg/DL and a K+ of 3.4. [facility] ordered for patient to self administered 20units of her Tresiba sq. 1L lactated ringers administered via bolus. 40 mEq PO K+ administered. Patient to be transported to [facility] ED for further work-up. [facility] 401 provided transport, this technical document writer accompanied patient to [facility]. Patient monitored for change in status while en route to [facility], with none noted; remained alert and oriented throughout contact. ................... ................... ................... ................... ................... ................... ................... ........ Disposition: Fulfilled RADHA SHIELDS MD [address] [facility],[address], [place], [address], [facility] 04/01/2023 19:20:47 04/02/2023 text/html HPI: Hx: Migraines. Patient today with continued elevated BG 450 via Fingerstick. Seen in [facility] ED last night declined admission. Restarted Tresiba as she had independently stopped it when diagnosed with Covid on 03/24/23. This morning took Tresiba 28 units. Took fluids and taking advil for headache and no neuro deficit. ................... ................... ................... ................... ................... ................... ................... ........ [facility] Nursing Assessment: Comments: Reviewed. No further information needed to process visit. Seng Lorenzo RN ................... ................... ................... ................... ................... ................... ................... ........ Loan Servicing Officer Note From Herman Navarro: Upon arrival, pt [...] giving herself 4 neb treatments a day. [facility] contacted and pt was administered 40mg potassium oral and was advised to administer a one time dose of 10 units of her insulin in addition to the insulin she is taking per day. Pt told to contact PCP in the morning. Loan Servicing Officer Allergies: Aspirin, Penicillin ................... ................... ................... ................... ................... ................... ................... ........ Disposition: Fulfilled Tamie Bridges MD [address] [facility],[address], [place], [address], [facility] 04/02/2023 14:11:02 04/03/2023 text/html CRC Nursing Assessment: Reason For Request: Follow up visit from 04/02 Chief Complaints: Diabetes Related, Electrolyte Imbalance, Medication Related PMH: COPD/Asthma, Diabetes Allergies: Aspirin, Penicillin Comments: [facility] Remarks 53 year old female with DM2, [...] elevated BG 450 via Fingerstick. 04/01 in [facility] ED last night declined admission. Restarted [...] 40 mEq of potassium and sent to [facility]. She reports she was given 10 [...] ................... ................... ................... ................... ................... ................... ........... Loan Servicing Officer Note From Davidsno Baptiste: Dispatched to the call address for the female with diabetic issue. Pt was seen on Saturday by this account development executive. Pt was found to be hyperglycemic (>700). Pt was given 1L LR, 40mEq of potassium and sent to the ED. Pt left AMA when advised to be admitted to the hospital. Pt was seen yesterday by a different account development executive and given more potassium. Pt states today [...] ........ Disposition: Fulfilled Esther Weston MD [address] [facility],[address], [place], [address], [facility] 04/03/2023 14:42:14 10/02/2023 text/html HPI: HX: ETOH abuse in remission. NO history of seizure.Patient called to report a seizure as witnessed by her this morning at 730am. No details given. Hung up on Interprter x 3 agreed to home CCA visit.DEclined 911 ED x 3. ................... ................... ................... ................... ................... ................... ................... ........ [facility] Nurse Triage Notes (Rosa Isela Hsieh): Comments: HPI reviewed, patient called w/ Mechanical Pencils Assembler. Sanitary Landfill Supervisor verified the member's name//address and phone number. [...] this has never happened before. This technical document writer strongly encouraged member to present to the emergency room for further work up. Patient declined going to the ED or calling 911 multiple times. Pt reported she is holding off on going (to the ED) and if it comes to the point of needing help she will get it. This technical document writer explained to member that [facility] would not be able to properly work [...] migraines, [facility].Education provided on the response time and the member was advised to monitor reported s/s and seek emergency treatment if needed. Loan Servicing Officer POC Test Results from Moshe Grewal Blood Glucose Measurement (1) [11:37] Blood Glucose: 221 mg/dL ................... ................... ................... ................... ................... ................... ................... ........ Loan Servicing Officer Note From Moshe Grewal: Dispatched to the [...] after to inform them of the event. [facility] contacted and informed and noted if the pt. did not want to be seen in the ER to just make sure she called if conditions worsened. all times are approx.report completed by henrry grewal. ................... ................... ................... ................... ................... ................... ................... ........ Disposition: Fulfilled Oneida Casper MD [address] [facility],[address], [place], [address], BRYAN DE PAZ 10/02/2023 14:36:43 OBGyn Episode No OBEpisode recorded.
[2024-06-18] MEDS: Insulin Lispro 100 UNIT/ML 3 ML VIAL SUBCUT ×2 (18:18→21:17)
--- NOTE | 2024-06-18 19:00 | PHA.MEDREC ---
Pharmacy Consult ? Medication Reconciliation Pharmacy has completed the medication reconciliation. Spoke with patient and she confirmed her medications. She confirmed she is taking the Novolog FlexPen and confirmed she does it via a sliding scale before meals but states she only does it once in the morning and at night because she only eats breakfast and dinner and does not eat a lunch. She confirmed her Tresiba FlexTouch U-200 pen and confirmed she has been injecting 104 units of that every morning. She states she was filling the Acetemra ACTPen at [facility] pharmacy in [facility] and confirmed the Dr stopped filling it over there and she is now getting the injection done by her Cancer Dr at the Cancer [facility], at this time the patient was a little confused and did not know the dose nor the next time she is due to receive it. She confirmed her Monjaro 12.5mg/0.5mL once a week injection and confirmed she injects it on Wednesdays and confirmed she took it this past Saturday (06/17). She confirmed she took all her morning medications except the insulins today.
[2024-06-18] MEDS: Albuterol/Iprat 2.5/0.5MG 3 ML AMPUL.NEB INHALE (19:44)
[2024-06-18 20:14] LABS: Glucose, Whole Blood 225 mg/dL (60-115)
[2024-06-18] MEDS: QUEtiapine Fumarate 200 MG TABLET PO (21:14)
[2024-06-18] MEDS: Amitriptyline HCl 10 MG TABLET 20 MG PO (21:14)
[2024-06-18] MEDS: Divalproex Sodium ER 500 MG TAB.ER.24H PO (21:15)
[2024-06-18] MEDS: Gabapentin 300 MG CAPSULE 600 MG PO (21:15)
[2024-06-18] MEDS: busPIRone HCl 5 MG TABLET 15 MG PO (21:15)
[2024-06-18] MEDS: oxyBUTYnin chloride ER 5 MG TAB.ER.24 PO (21:16)
[2024-06-18] MEDS: DULoxetine HCl 60 MG CAPSULE.DR PO (21:16)
[2024-06-19] VITALS (9 sets, daily range): BP systolic 112–142; BP diastolic 59–77; PULSE 71–105; RESP 15–30; TEMP -17.7–36.6; O2SAT 94–98
[2024-06-19] MEDS: 0.9 % Sodium Chloride Flush 3 ML SYRINGE IVFLUSH (04:33)
[2024-06-19 06:22] LABS: Hematocrit 28.7 % (37.0-47.0); Hemoglobin 9.5 g/dl (12.0-16.0); Mean Corpuscular HGB Conc 33.1 g/dl (31.0-35.0); Mean Corpuscular Hemoglobin 27.9 pg (27.0-33.0); Mean Corpuscular Volume 84.2 fL (80.0-98.0); Mean Platelet Volume 10.1 fL (9.4-12.3); Platelet Count 370 X10*3/uL (160-400); Red Blood Count 3.41 X10*6/uL (4.20-5.50); Red Cell Distribution Width 16.9 % (11.0-16.0)
[2024-06-19 06:56] LABS: Anion Gap 13 (12-20); Blood Urea Nitrogen 9 mg/dL (9-16); Carbon Dioxide 27 mmol/L (22-29); Chloride 108 mmol/L (96-108); Creatinine Clr Calc Pharmacy 85.3; Estimated Glomerular Filt Rate > 60; Glucose Random 134 mg/dL (60-115); Magnesium 1.1 mg/dL (1.6-2.6); Sodium 145 mmol/L (135-145)
[2024-06-19] MEDS: Omeprazole 40 MG CAPSULE.DR PO (07:22)
[2024-06-19] MEDS: Potassium Chloride ER 20 MEQ TAB.ER.PRT 40 MEQ PO (07:22)
[2024-06-19] MEDS: Magnesium Sulfate/H2O 2 GM/50 ML PIGGYBACK IV ×2 (07:23→09:37)
[2024-06-19 07:45] LABS: Glucose, Whole Blood 148 mg/dL (60-115)
[2024-06-19] MEDS: Furosemide 40 MG TABLET 80 MG PO (08:21)
[2024-06-19] MEDS: Gabapentin 300 MG CAPSULE 600 MG PO ×2 (08:21→15:30)
[2024-06-19] MEDS: busPIRone HCl 5 MG TABLET 15 MG PO ×2 (08:21→15:30)
[2024-06-19] MEDS: Magnesium Oxide 400 MG TABLET PO (08:22)
[2024-06-19] MEDS: Multivitamin TABLET 1 TAB PO (08:22)
[2024-06-19] MEDS: predniSONE 20 MG TABLET 40 MG PO (08:22)
[2024-06-19] MEDS: Atorvastatin Calcium 10 MG TABLET PO (08:22)
[2024-06-19] MEDS: DULoxetine HCl 60 MG CAPSULE.DR PO (08:22)
[2024-06-19] MEDS: Divalproex Sodium ER 500 MG TAB.ER.24H PO (08:22)
[2024-06-19] MEDS: ARIPiprazole 20 MG TABLET PO (08:22)
[2024-06-19] MEDS: Enoxaparin Sodium 40 MG/0.4 ML SYRINGE SUBCUT (08:25)
[2024-06-19] MEDS: Albuterol/Iprat 2.5/0.5MG 3 ML AMPUL.NEB INHALE ×3 (08:30→14:27)
[2024-06-19] MEDS: Leflunomide 10 MG TABLET 20 MG PO (08:47)
[2024-06-19] MEDS: Fluticasone/Vilanterol 200/25 BLST.W.DEV 1 PUFF INHALE (08:57)
--- NOTE | 2024-06-19 09:48 | MHC.CM.PN ---
Monika 06/19/24, Pt lives with her , she has [employer] services from her son. For DME, she has a cane and walker. HCP was discussed, pt. will complete form and it will be added to chart. Pt can arrange transport home at DC. DCP; home, self care. CM to follow for DC needs.
--- NOTE | 2024-06-19 09:52 | PC.NURSE ---
Attending Jesin gives verbal order to administer 2nd dose of Magnesium immediately after 1st dose. Magnesium level to be rechecked after second infusion.
--- NOTE | 2024-06-19 10:54 | HO.PM.IMPN ---
Subjective Subjective Date of Service: 06/19/24 Interval History: wants to go home, still hypoxic Physical Exam Vital Signs: Vital Signs: Last Vital Signs Temp 97.9 F 06/19/24 02:19 Pulse 90 06/19/24 10:22 Resp 21 H 06/19/24 10:22 BP 115/59 L 06/19/24 10:22 Pulse Ox 97 06/19/24 10:22 O2 Del Method Nasal Cannula 06/19/24 10:22 O2 Flow Rate 3 06/19/24 10:22 BMI result Body Mass Index 30.9 General: AO X 3, no acute distress Resp: Crackles bilateral, no accessory muscles used CVS: S1,S2,RRR GI: soft, non tender, non distended Neuro: motor grossly intact, alert Psych: appropriate affect, appropriate insight Objective Data Active Medications Acetaminophen (Acetaminophen 325 Mg Tablet) 650 mg PO Q6H PRN PRN Reason: Pain, Mild 1-3,fever,headache Albuterol/Ipratropium (Albuterol/Iprat 2.5/0.5mg 3 Ml Ampul.Neb) 3 ml INHALE RQ4H WHILE AWAKE [facility] Last Admin: 06/19/24 08:30 Dose: 3 ml Documented By: ADDISON Amitriptyline HCl (Amitriptyline Hcl 10 Mg Tablet) 20 mg PO BEDTIME [facility] Last Admin: 06/18/24 21:14 Dose: 20 mg Documented By: LILY Aripiprazole (Aripiprazole 20 Mg Tablet) 20 mg PO DAILY [facility] Last Admin: 06/19/24 08:22 Dose: 20 mg Documented By: NUNU Atorvastatin Calcium (Atorvastatin Calcium 10 Mg Tablet) 10 mg PO DAILY [facility] Last Admin: 06/19/24 08:22 Dose: 10 mg Documented By: NUNU Baclofen (Baclofen 10 Mg Tablet) 5 mg PO TID PRN PRN Reason: Muscle Spasm Buspirone HCl (Buspirone Hcl 5 Mg Tablet) 15 mg PO TID [facility] Last Admin: 06/19/24 08:21 Dose: 15 mg Documented By: NUNU Calcium Carbonate (Calcium Carbonate 750 Mg Tab.Chew) 750 mg PO Q4H PRN PRN Reason: Heartburn Divalproex Sodium (Divalproex Sodium Er 500 Mg Tab.Er.24h) 500 mg PO BID [facility] Last Admin: 06/19/24 08:22 Dose: 500 mg Documented By: NUNU Duloxetine HCl (Duloxetine Hcl 60 Mg Capsule.Dr) 60 mg PO BID [facility] Last Admin: 06/19/24 08:22 Dose: 60 mg Documented By: NUNU Enoxaparin Sodium (Enoxaparin Sodium 40 Mg/0.4 Ml Syringe) 40 mg SUBCUT Q24H [facility] Last Admin: 06/19/24 08:25 Dose: 40 mg Documented By: NUNU Fluticasone/Vilanterol (Fluticasone/Vilanterol 200/25 Blst.W.Dev) 1 puff INHALE RDAILY [facility] Last Admin: 06/19/24 08:57 Dose: 1 puff Documented By: ADDISON Furosemide (Furosemide 40 Mg Tablet) 80 mg PO DAILY [facility]; Protocol Last Admin: 06/19/24 08:21 Dose: 80 mg Documented By: NUNU Gabapentin (Gabapentin 300 Mg Capsule) 600 mg PO TID [facility] Last Admin: 06/19/24 08:21 Dose: 600 mg Documented By: NUNU Glucose (Glucose Gel 15 Gm Gel..Gram.) 15 gm PO Q15M PRN; Protocol PRN Reason: per Hypoglycemia Standing Ord. Dextrose (D10) 250 mls @ 750 mls/hr IV Q15M PRN; Protocol PRN Reason: per Hypoglycemia Standing Ord. Magnesium Sulfate (Magnesium Sulfate/H2o) 2 gm in 50 mls @ 25 mls/hr IV Q4H [facility] Stop: 06/19/24 13:14 Last Admin: 06/19/24 09:37 Dose: 25 mls/hr Documented By: NUNU Insulin Human Lispro (Insulin Lispro 100 Unit/Ml 3 Ml Vial) 0 unit SUBCUT QIDACHS [facility]; Protocol Last Admin: 06/19/24 07:46 Dose: Not Given Documented By: NUNU Non-Admin Reason: No Insulin Coverage Leflunomide (Leflunomide 10 Mg Tablet) 20 mg PO DAILY [facility] Last Admin: 06/19/24 08:47 Dose: 20 mg Documented By: NUNU Magnesium Hydroxide (Milk Of Magnesia 30 Ml Oral.Susp) 30 ml PO DAILY PRN PRN Reason: Constipation Magnesium Oxide (Magnesium Oxide 400 Mg Tablet) 400 mg PO DAILY [facility] Last Admin: 06/19/24 08:22 Dose: 400 mg Documented By: NUNU Melatonin (Melatonin 3 Mg Tablet) 6 mg PO BEDTIME PRN PRN Reason: Insomnia Multivitamins/Vitamin C (Multivitamin Tablet) 1 tab PO DAILY [facility] Last Admin: 06/19/24 08:22 Dose: 1 tab Documented By: NUNU Omeprazole (Omeprazole 40 Mg Capsule.Dr) 40 mg PO BID@0630,1630 [facility] Last Admin: 06/19/24 07:22 Dose: 40 mg Documented By: NUNU Oxybutynin Chloride (Oxybutynin Chloride Er 5 Mg Tab.Er.24) 5 mg PO BEDTIME [facility] Last Admin: 06/18/24 21:16 Dose: 5 mg Documented By: LILY Prednisone (Prednisone 20 Mg Tablet) 40 mg PO DAILY [facility] Last Admin: 06/19/24 08:22 Dose: 40 mg Documented By: NUNU Quetiapine Fumarate (Quetiapine Fumarate 200 Mg Tablet) 200 mg PO BEDTIME [facility] Last Admin: 06/18/24 21:14 Dose: 200 mg Documented By: LILY Sodium Chloride (0.9 % Sodium Chloride Flush 3 Ml Syringe) 3 ml IVFLUSH QSHIFT [facility] Last Admin: 06/19/24 08:03 Dose: Not Given Documented By: NUNU Non-Admin Reason: IV Running Labs 06/19/24 05:39 06/19/24 05:39 Labs: Laboratory Results - last 24 hr 06/18/24 06/18/24 06/18/24 14:15 14:20 20:10 MCV 85.6 MCH 27.5 MCHC 32.1 RDW 17.2 H Plt Count 338 MPV 9.7 Immature Gran % (Auto) 0.5 H Neut % (Auto) 87.8 H Lymph % (Auto) 5.2 L [place] % (Auto) 5.5 Eos % (Auto) 0.4 Baso % (Auto) 0.6 Lymph # (Auto) 0.9 L [place] # (Auto) 0.9 Eos # (Auto) 0.1 Baso # (Auto) 0.1 Abs Immat Gran (auto) 0.08 H Absolute Neuts (auto) 14.8 H Absolute Nucleated RBC 0.000 Nucleated RBC % (auto) 0.0 VBG pH 7.54 H VBG pCO2 27 VBG pO2 65 VBG HCO3 23 VBG O2 Saturation 90.0 VBG Base Excess 1.6 Anion Gap 10 L Estim Creat Clear Calc 83.2 Estimated GFR > 60 POC Glucose 225 H Random Glucose 188 H Calcium 7.9 L Magnesium Total Bilirubin 0.3 AST 16 ALT < 6 Alkaline Phosphatase 130 H Troponin I High Sens < 2.7 B-Natriuretic Peptide 23 Total Protein 6.5 Albumin 3.4 L Influenza Type A (PCR) NEGATIVE Influenza Type B (PCR) NEGATIVE RSV RNA Qual (PCR) NEGATIVE SARS-CoV-2 RNA (RT-PCR) NEGATIVE 06/19/24 06/19/24 05:39 07:41 MCV 84.2 MCH 27.9 MCHC 33.1 RDW 16.9 H Plt Count 370 MPV 10.1 Immature Gran % (Auto) Neut % (Auto) Lymph % (Auto) [place] % (Auto) Eos % (Auto) Baso % (Auto) Lymph # (Auto) [place] # (Auto) Eos # (Auto) Baso # (Auto) Abs Immat Gran (auto) Absolute Neuts (auto) Absolute Nucleated RBC 0.000 Nucleated RBC % (auto) 0.0 VBG pH VBG pCO2 VBG pO2 VBG HCO3 VBG O2 Saturation VBG Base Excess Anion Gap 13 Estim Creat Clear Calc 85.3 Estimated GFR > 60 POC Glucose 148 H Random Glucose 134 H Calcium 8.0 L Magnesium 1.1 L* Total Bilirubin AST ALT Alkaline Phosphatase Troponin I High Sens B-Natriuretic Peptide Total Protein Albumin Influenza Type A (PCR) Influenza Type B (PCR) RSV RNA Qual (PCR) SARS-CoV-2 RNA (RT-PCR) Assessment and Plan (1) Drug side effects: Status: Acute Plan 54F PMH moderate persistent asthma/COPD, interstitial lung disease, rheumatoid arthritis, diabetes, chronic diastolic CHF, bipolar, TRINIDAD presented with shortness of breath Acute hypoxic respiratory failure secondary to allergic reaction versus drug induced bronchospasm - moderate persistent asthma/COPD overlap and interstitial lung disease due to rheumatoid arthritis with acute decompensation Wean off O2, continuie steroids, DuoNebs acute hypomagnesemia replace and monitor Diabetes Insulin sliding scale Chronic diastolic CHF Continue Lasix Bipolar Continue mood stabilizers TRINIDAD CPAP at night DVT prophylaxis with Lovenox Full Code reason for continued hospitalization:hypoxia, hypomag Quality Stroke Does the patient have a stroke diagnosis?: No VTE Prior VTE?: No VTE Risk Level:: Medical - moderate - high VTE Device Contraindication: Treatment Not Indicated VTE Drug Contraindication: N/A - Med Ordered
[2024-06-19 13:11] LABS: Glucose, Whole Blood 565 mg/dL (60-115)
[2024-06-19] MEDS: Insulin Glargine,Hum.rec.anlog 100 UNIT/ML 10 ML VIAL 80 UNIT SUBCUT (13:55)
[2024-06-19] MEDS: Insulin Lispro 100 UNIT/ML 3 ML VIAL SUBCUT (13:56)
[2024-06-19 17:43] LABS: Glucose, Whole Blood 496 mg/dL (60-115)
--- NOTE | 2024-06-19 17:48 | PC.NURSE ---
Pt expresses frustrations with length of stay. She is demanding to leave and threatening to tear out IV. Attending aware. Pt is fully dressed, calling for a ride and refusing to stay. Pt counseled on the risks of leaving with an elevate BS and need of supplemental O2. Pt verbalizes understanding of this information and demands to leave at this time. Pt aware she will be leave AMA and is willing to sign paperwork.
--- NOTE | 2024-06-19 18:22 | P.DS_ITS ---
DS: Providers Provider Date of Service: 06/19/24 Date of admission: 06/19/24 10:54 Date of discharge: 06/19/24 Primary care physician: Isabel Lewis DO DS: Diagnosis Discharge Diagnosis (1) Drug side effects: Status: Acute DS: Summary Hospital Course Hospital Course: from initial hpi: 54F PMH moderate persistent asthma/COPD, interstitial lung disease, rheumatoid arthritis, diabetes, chronic diastolic CHF, bipolar, TRINIDAD presented with sh ortness of breath. Patient was at [employer] getting infusion of actemra, this was her 2nd dose. She suddenly began to feel tingling in her hands, panicky, chest pressure, shortness of breath, wheezing. Noted to be hypoxic to 87% on room air, was given Solu-Cortef, Benadryl, Pepcid. hospital course: patient was admitted for Acute hypoxic respiratory failure secondary to allergic reaction versus drug induced bronchospasm - moderate persistent asthma/COPD overlap and interstitial lung disease due to rheumatoid arthritis with acute decompensation. was treated with steroids and duonebs. also noted to have severe acute hypomagnesemia 1.1, given replacement, and DM with hyperglycemia, given basal bolus insulin. for chronic diastolic chf given lasix, for bipolar given mood stabilizers. for trin[place] given cpap at night. patient continued to be hypoxic and required close monitroing for glucose control and magneseium replacement, however, she decided to leave against medical advice. she was able to demonstrate understanding of the risks of doing so. inclusind DKA, hypoxic injury, arrythmia from hypomagnesemia. Time Attestation Discharge Coordination Time (in mins): 33 Quality: Safe Use of Opioids Does Pt have an Active Cancer Diagnosis on the Problem List?: No Quality: Stroke Does the patient have a stroke diagnosis?: No Physical Exam Vital Signs: Vital Signs: Last Vital Signs Temp 97.9 F 06/19/24 11:27 Pulse 102 H 06/19/24 14:28 Resp 22 H 06/19/24 14:28 BP 120/63 06/19/24 11:27 Pulse Ox 94 06/19/24 11:27 O2 Del Method Room Air 06/19/24 11:27 O2 Flow Rate 3 06/19/24 10:22 BMI result Body Mass Index 30.9 crackles, alert oriented times 3 DS: Data Data Completed and Pending Labs on day of discharge: Laboratory Results - last 24 hr 06/18/24 06/19/24 06/19/24 20:10 05:39 07:41 WBC 12.0 H RBC 3.41 L Hgb 9.5 L Hct 28.7 L MCV 84.2 MCH 27.9 MCHC 33.1 RDW 16.9 H Plt Count 370 MPV 10.1 Absolute Nucleated RBC 0.000 Nucleated RBC % (auto) 0.0 Sodium 145 Potassium 3.0 L Chloride 108 Carbon Dioxide 27 Anion Gap 13 BUN 9 Creatinine 0.76 Estim Creat Clear Calc 85.3 Estimated GFR > 60 POC Glucose 225 H 148 H Random Glucose 134 H Calcium 8.0 L Magnesium 1.1 L* 06/19/24 06/19/24 13:07 17:39 WBC RBC Hgb Hct MCV MCH MCHC RDW Plt Count MPV Absolute Nucleated RBC Nucleated RBC % (auto) Sodium Potassium Chloride Carbon Dioxide Anion Gap BUN Creatinine Estim Creat Clear Calc Estimated GFR POC Glucose 565 H* 496 H* Random Glucose Calcium Magnesium Discharge Plan Discharge Patient Disposition: Left Against Medical Advice Discharge Diagnosis: hypoxia Referrals: Isabel Lewis DO [Primary Care Provider] - 1 Week Discharge Medications: No Action amitriptyline 10 mg tablet 2 tab PO BEDTIME oxybutynin chloride 5 mg tablet extended release 24 hr 1 tab PO BEDTIME calcium carbonate-vitamin D3 600 mg-10 mcg (400 unit) tablet 1 tab PO BID insulin aspart U-100 [Novolog FlexPen U-100 Insulin] 100 unit/mL (3 mL) insulin pen See Protocol subcut BIDAC Protocol: Insulin Correction Scale Less than or equal to 110 ---- Give (units): 0 111 to 150 Give (units): 0 151 to 200 Give (units): 2 201 to 250 Give (units): 4 251 to 300 Give (units): 6 301 to 350 Give (units): 8 Greater than 350 Give (units): 10 Call MD if Blood Glucose > : 350 Synjardy 12.5-1,000 mg tablet 1 tab PO BID Actemra ACTPen 162 mg/0.9 mL pen injector SUBCUT Mounjaro 12.5 mg/0.5 mL pen injector 12.5 mg subcut WE leflunomide 20 mg tablet 20 mg PO DAILY diclofenac sodium 1 % gel 2 g topical QID PRN (Reason: Pain) Rx Instructions: apply to single elbow, wrist or hand; for hand includes palm/fingers/back of hand atorvastatin [Lipitor] 10 mg tablet 10 mg PO DAILY duloxetine 60 mg capsule,delayed release(DR/EC) 60 mg PO BID riboflavin (vitamin B2) 100 mg tablet 100 mg PO DAILY gabapentin 300 mg capsule 600 mg PO TID baclofen 5 mg tablet 5 mg PO TID PRN (Reason: Muscle Spasm) (DME) pen needle, diabetic [UltiCare Pen Needle] 32 gauge x 5/32 needle See Rx Instructions .ROUTE DIRECTED Qty: 50 Rx Instructions: As directed melatonin 5 mg tablet 5 mg PO BEDTIME Tab-A-Manjeet Multivitamin w-iron 15 mg iron- 400 mcg tablet 1 tab PO DAILY budesonide-formoterol [Symbicort] 160-4.5 mcg/actuation HFA aerosol inhaler 2 puff inhalation BID furosemide 80 mg tablet 80 mg PO DAILY magnesium oxide 400 mg (241.3 mg magnesium) tablet 400 mg PO DAILY aripiprazole 20 mg tablet 20 mg PO DAILY buspirone 15 mg tablet 15 mg PO TID (DME) leg brace Misc See Rx Instructions .Route Qty: 1 0RF Rx Instructions: As directed :Use during day when active. DO not wear to bed insulin degludec [Tresiba FlexTouch U-200] 200 unit/mL (3 mL) insulin pen 104 unit subcut DAILY albuterol sulfate [Ventolin HFA] 90 mcg/actuation HFA aerosol inhaler 2 inh inhalation Q4H PRN (Reason: Shortness Of Breath Or Wheezing) meclizine 25 mg tablet 25 mg PO BID PRN (Reason: Motion Sickness/Vertigo) divalproex 500 mg tablet extended release 24 hr 500 mg PO BID albuterol sulfate 2.5 mg /3 mL (0.083 %) solution for nebulization 2.5 mg inhalation QID PRN (Reason: Shortness Of Breath Or Wheezing) omeprazole 20 mg capsule,delayed release(DR/EC) 40 mg PO BID glipizide 10 mg tablet extended release 24hr 10 mg PO DAILY (DME) FreeStyle Jt 2 Sensor Kit See Rx Instructions .ROUTE .MEDSUPPLY Qty: 1 Rx Instructions: As directed quetiapine 200 mg tablet 200 mg PO BEDTIME polyethylene glycol 3350 17 gram/dose powder 17 g PO DAILY PRN (Reason: Constipation) Spiriva Respimat 2.5 mcg/actuation mist 2 puff inhalation DAILY Discharge Orders: Discharge Order (Routine); Ordered 06/19/24 Ordered By: Kevin Thompson Print Language: Slovak Care Plan Goals: recovery Health Concerns: low mag, high sugar, copd Plan of Treatment: follow up with pcp, monitor labs Assessment: see above
== END 2024-06-19 18:33 | disposition left against medical advice (07) | DRG 202 ==
LOC: HO.ED 15:22 → HO.EDOVER 16:19 → HO.IMC 06-19 14:09 → HO.EDOVER 06-19 14:12 → HO.IMC 06-19 17:20 → HO.EDOVER 06-19 18:22
PROVIDERS: Admitting Provider Internal Medicine; Emergency Provider Student in an Organized Health Care Education/Training Program; PCP Family Medicine; Visit Provider Internal Medicine
DX: J98.01 Acute bronchospasm (principal); J96.01 Acute respiratory failure with hypoxia; I50.32 Chronic diastolic (congestive) heart failure; T45.1X5A Adverse effect of antineoplastic and immunosuppressive drugs, initial encounter; M05.10 Rheumatoid lung disease with rheumatoid arthritis of unspecified site; F17.210 Nicotine dependence, cigarettes, uncomplicated; G47.33 Obstructive sleep apnea (adult) (pediatric); E83.42 Hypomagnesemia; F31.9 Bipolar disorder, unspecified; J45.40 Moderate persistent asthma, uncomplicated; Z71.6 Tobacco abuse counseling; J44.9 Chronic obstructive pulmonary disease, unspecified; Z20.822 Contact with and (suspected) exposure to COVID-19; Z79.4 Long term (current) use of insulin; Z79.84 Long term (current) use of oral hypoglycemic drugs; Z79.620 Long term (current) use of immunosuppressive biologic; Z79.899 Other long term (current) drug therapy
CPT/HCPCS: 0241U; 36415; 71046; 80048; 80053; 82803; 82947; 83735; 83880; 84484; 85025; 85027; 93005; 99285; J1650; J1940; J3475

== ENCOUNTER → 2024-06-18 13:27 | Outpatient (BNV) | payer OTHER, SELFPAY | PROVIDERS: Emergency Provider Student in an Organized Health Care Education/Training Program; PCP Family Medicine; Visit Provider Radiology Diagnostic Radiology | DX: J81.0 Acute pulmonary edema (principal) | CPT/HCPCS: 71046 ==

== ENCOUNTER → 2024-06-18 13:42 | Outpatient (BNV) | payer OTHER, SELFPAY | PROVIDERS: Emergency Provider Student in an Organized Health Care Education/Training Program; PCP Family Medicine; Visit Provider Internal Medicine | DX: T45.1X5A Adverse effect of antineoplastic and immunosuppressive drugs, initial encounter (principal); J96.01 Acute respiratory failure with hypoxia; I50.32 Chronic diastolic (congestive) heart failure | CPT/HCPCS: 99223; 99239 ==

== ENCOUNTER → 2024-06-18 14:34 | Outpatient (BNV) | payer OTHER, SELFPAY | PROVIDERS: Admitting Provider Internal Medicine; Emergency Provider Student in an Organized Health Care Education/Training Program; PCP Family Medicine; Visit Provider Internal Medicine Cardiovascular Disease | DX: I45.81 Long QT syndrome (principal) | CPT/HCPCS: 93010 ==

== ENCOUNTER 2024-07-06 11:18 | Inpatient (IN) | payer OTHER, SELFPAY ==
--- NOTE | ~2024-07-06 | XR_ITS ---
EXAMINATION: XR CHEST CLINICAL INFORMATION: chest pain COMPARISON: June 18, 2024 TECHNIQUE: Frontal view of the chest was obtained. FINDINGS: Indistinct margins in the pulmonary hilum and prominence of the interstitial markings. No pleural effusion. No pneumothorax. Osseous structures are intact. XR/XR chest 1V IMPRESSION: Pulmonary edema in the correct clinical settings. Electronically signed by: Joey Camarillo MD 07/06/2024 02:42 PM [facility]
[2024-07-06 11:44] VITALS: BP 103/73; PULSE 104; O2SAT 97
[2024-07-06 11:53] VITALS: BP 91/67; PULSE 97; RESP 18; TEMP 36.8; O2SAT 92; BMI 29.7
--- NOTE | 2024-07-06 12:49 | ECG_ITS ---
Test Reason : Hyperglycemia Blood Pressure : */* mmHG Vent. Rate : 97 BPM Atrial Rate : 97 BPM P-R Int : 134 ms QRS Dur : 88 ms QT Int : 444 ms P-R-T Axes : 44 21 63 degrees QTcB Int : 563 ms Normal sinus rhythm Possible Left atrial enlargement ST depression, consider subendocardial injury Nonspecific T wave abnormality Prolonged QT Abnormal ECG When compared with ECG of 18-Jun-2024 15:01, ST now depressed in Anterolateral leads T wave inversion now evident in Anterior leads QT has lengthened Referred By: Siobhan Stuart Electronically Signed By: Wilbur Cervantes
--- OUTSIDE RECORDS SUMMARY | 2024-07-06 13:30 | XMS_ITS | Encounter Summary ---
Author Organization [employer] Address [address] [facility] [address] [place] [address] Care Team Providers Care Urgent Care Physician Assistant Name Role Phone Isabel Lewis DO Primary Care Provider [phone] Franki Walton PharmD Unavailable Unavail able Marti Elder PharmD Unavailable [phone] Dimitris Arambula FIRE EQUIPMENT REPAIRER INSPECTOR Unavailable Unavailable Encounter Details Date Type Department Care Team (Late Contact Info) Description 10/09/2022 Orders Only [facility] PEDS [address] [place] [address] Franki Walton, PharmD Social History Tobacco Use Types Packs/Day Years Used Date Smoking Tobacco: Every Day Cigarettes Passive Smoke Exposure: Current Smokeless Tobacco: Current Alcohol Use Standard Drinks/Week Comments Never 0 (1 standard drink = 0.6 oz pur e alcohol) Comments Unknown Sex and Gender Information Value Date Recorded Sex Assigned at Female 04/02/2022 10:14 AM EDT Legal Sex Female 10:14 AM EDT Gender Identity Female 04/02/2022 10:14 AM EDT Sexual Orientation Straight 07/02/2024 11 :13 AM EST COVID-19 Exposure Response Date Recorded In the last 10 days, have yo u been in contact with someone who was confirmed or suspected to have Coronavirus/COVID-19? No / Unsure 10/10/2022 10:22 AM EDT documented as of this encounter Plan of Treatment Upcoming Encounters Date Type Department Care Team (Late Contact Info) Description 07/23/2024 11:00 AM EST Medication Management [facility] MEDICINE [address] [place] [address] Marti Elder PharmD [address] [place] [address] documented as of this encounter Goals Goal Patient Goal Type Associated Problems Recent Progress Patient-Stated? Author Hemoglobin A1c < 7 Result Component 9.9(06/05/2024 11:40 AM EST) No Franki Walton, PharmD documented as of this encounter Visit Diagnoses Not on filedocumented in this encounter Additional Health Concerns Assessment Noted Time PHQ-9 Depression Total Score: 7 08/29/19 23 2:26 PM EDT documented as of this encounter Care Teams Urgent Care Physician Assistant Relationship Specialty Start Date End Date Isabel Lewis DO [address] [place] [id number] PCP - General Family Medicine 06/03/18 Franki Walton, PharmD [address] [place] [phone] Pharmacist Internal Medicine 09/13/22 02/21/23 Marti Elder, PharmD [address] [place] [id number] Pharmacist Internal Medicine 02/22/23 Dimitris Arambula FNP [address] [place] [id number] Nurse Practitioner Family Medicine 04/24/23 documented as of this encounter
--- OUTSIDE RECORDS SUMMARY | 2024-07-06 13:30 | XMS_ITS | Encounter Summary ---
Author Organization [employer] Address [address] [facility] [address] [place] [address] Care Team Providers Care Predatory Hunter Name Role Phone Isabel Lewis DO Primary Care Provider [phone] Marti Elder PharmD Unavailable [phone] Dimitris Arambula HYDRAULIC HAMMER OPERATOR Unavailable Unavailable Reason for Visit * Reason Comments Med Refill Encounter Details Date Type Department Care Team (Late st Contact Info) Description 07/05/2023 Refill [facility] MED & PEDS [address] [place] [address] Isabel Lewis DO [address] [place] [address] Asthma, unspecified asthma severity, unspecified whether complicated, unspecified whether persistent Social History Tobacco Use Types Packs/Day Years Used Date Smoking Tobacco: Every Day Cigarettes Passive Smoke Exposure: Current Smokeless Tobacco: Current Alcohol Use Standard Drinks/Week Comments Never 0 (1 standard drink = 0.6 oz pur e alcohol) Depression Answer Date Recorded Patient Health Questionnaire-9 Score 9 07/02/2023 Patient Health Questionnaire-9 Score 9 07/02/2023 Last PHQ-9: Questionnaire Data Not on file 0 07/02/2023 Housing Stability Answer Date Recorded What is your housing situation today? I have hill manzo 03/20/[address] you li ve. Do you have problems with any of the following? None of the above 03/20/2023 Food Insecurity Answer Date Recorded Within the past 12 months, y ou worried that your food would run out before you got money to buy more: Never True 03/20/2023 Within the past 12 months,th e food you bought just didn't last and you didn't have enough money to get more: Never True Transportation Answer Date Recorded In the past 12 months, has l ack of transportation kept you from medical appts, meetings, work or from getting things needed for daily living? No 03/20/2023 Utilities Answer Date Recorded In the past 12 months, has t he [employer], gas, oil or water [employer] threatened to shut off services in your home? No 03/20/2023 Depression Answer Date Recorded Patient Health Questionnaire-2 Score 2 07/02/2023 Comments Unknown Sex and Gender Information Value Date Recorded Sex Assigned at Female 04/02/2022 10:14 AM EDT Legal Sex Female 10:14 AM EDT Gender Identity Female 04/02/2022 10:14 AM EDT Sexual Orientation Straight 07/02/2024 11 :13 AM EST documented as of this encounter Plan of Treatment Upcoming Encounters Date Type Department Care Team (Late st Contact Info) Description 07/23/2024 11:00 AM EST Medication Management [facility] MEDICINE [address] [place] [address] Marti Elder PharmD [address] [place] [address] documented as of this encounter Goals Goal Patient Goal Type Associated Problems Recent Progress Patient-Stated? Author Hemoglobin A1c < 7 Result Component 9.9( 11:40 AM EST) No Franki Walton PharmD Record your blood sugar as directed Result Component On track( 024 11:32 AM EDT) No Marti Elder PharmD Note: Use CGM, ensuring sensor is scanned at least once every 8 hours to capture 24H data. Check BG manually, as directed. documented as of this encounter Visit Diagnoses Diagnosis Asthma, unspecified asthma severity, unspecified whether complicated, unspecified whether persistent documented in this encounter Additional Health Concerns Assessment Noted Time PHQ-9 Depression Total Score: 9 07/02/19 24 9:27 AM EST documented as of this encounter Care Teams Predatory Hunter Relationship Specialty Start Date End Date Isabel Lewis DO [address] [place] [address] PCP - General Family Medicine 06/03/18 Marti Elder PharmD [address] [place] [address] Pharmacist Internal Medicine 02/22/23 Dimitris Arambula FNP [address] [place] [address] Nurse Practitioner Family Medicine 04/24/23 documented as of this encounter
--- OUTSIDE RECORDS SUMMARY | 2024-07-06 13:30 | XMS_ITS | Encounter Summary ---
Author Organization [employer] Address [address] [place] [address] Care Team Providers Care Staffing Specialist Name Role Phone Isabel Lewis DO Primary Care Provider Franki Walton PharmD Unavailable Unavail able Marti Elder PharmD Unavailable [phone] Dimitris Arambula SIZE MIXER Unavailable Unavailable Reason for Visit * Reason Comments Med Refill Encounter Details Date Type Department Care Team (Late st Contact Info) Description 09/13/2022 Refill [facility] [address] [place], [place] [phone] Isabel Lewis DO [address] [place], [place] [phone] Insomnia, unspecified type Social History Tobacco Use Types Packs/Day Years [...] suspected to have Coronavirus/COVID-19? No / Unsure 09/13/2022 11:57 AM EDT documented as of this encounter Plan of Treatment Upcoming Encounters Date Type Department Care Team (Late st Contact Info) Description 07/23/2024 11:00 AM EST Medication Management [facility] [address] [place] [address] Marti Elder PharmD [address] [place] [address] documented as of this encounter Goals Goal Patient Goal Type Associated Problems Recent Progress Patient-Stated? Author Hemoglobin A1c < 7 Result Component 9.9(06/05/2024 11:40 AM EST) No Franki Walton, PharmD documented as of this encounter Visit Diagnoses Diagnosis Insomnia, unspecified type documented in this encounter Additional Health Concerns Assessment Noted Time PHQ-9 Depression Total Score: 7 08/29/19 23 2:26 PM EDT documented as of this encounter Care Teams Staffing Specialist Relationship Specialty Start Date End Date Isabel Lewis DO [address] [place] [address] PCP - General Family Medicine 06/03/18 Franki Walton, PharmD [address] [place] [phone] Pharmacist Internal Medicine 09/13/22 02/21/23 Marti Elder, PharmD [address] [place] [phone] Pharmacist Internal Medicine 02/22/23 Dimitris Arambula FNP [address] [place] [phone] Nurse Practitioner Family Medicine 04/24/23 documented as of this encounter
--- OUTSIDE RECORDS SUMMARY | 2024-07-06 13:30 | XMS_ITS | Data Portability ---
Author Organization [employer] Address [address] [place] [address] Care Team Providers Care Deckhand Engineer Name Role Phone [facility] Referring Provider HIM [facility] OTHER [facility] OTHER Assessment Encounter Date Assessment Date Assessment LastModified by Organization Details LastModified Time 04/03/2023 04/03/2023 I provided real -time medical direction via phone for this encounter, and was available for additional phone based assistance as needed. I have reviewed and agree with the Assessment and Plan as documented by the Ophthalmology Assistant. Patient given the opportunity to ask questions via building construction professor Advised if develops CP/severe SOB/turning blue/uncontrolle d n/v/d or black/bloody emesis or stool/ AMS/ syncope/ hi fever unresponsive to APAP to call 911- verbalized understanding of instructions [email or web address] Not available 04/03/2023 14:29:20 10/02/2023 10/02/2023 I provided real -time medical direction via phone for this encounter and was available for additional phone-based assistance as needed. I have reviewed and agree with the Assessment and Plan as documented by the Ophthalmology Assistant. Patient given the opportunity to ask questions. [...] numbness. This service was then called. Per bench jeweler on the scene, no focal deficits with VSS and BG of 220. FAST exam is negative per bench jeweler and patient does have sensation of the [...] plasma 2022 023 [email or web address] [facility], [address] [place] [address], [phone], 17:24:50 glucose, fingerstick , blood 2022 023 MARTHA [facility], [address] [place] [address], [phone], 08:32:02 rapid SARS CoV 2 Ag, QL IA, respiratory specimen 2022 023 [email or web address] 0 [facility], [address] [place] [address], [phone], 3 14:32:45 BMP, serum or plasma 2022 023 [email or web address] 0 [facility], [address] [place] [address], [phone], 14:32:40 urinalysis, dipstick 2022 023 [email or web address] 0 [facility], [address] [place], [address], 14:32:43 Referral None recorded. Procedures None recorded. Surgeries None recorded. Imaging None recorded. Medication Orders lactated Ringers intravenous solution 2022 023 [email or web address] Not available 16:56:52 potassium chloride ER 20 mEq tablet,exte nded release 2022 023 [email or web address] Not available 17:26:55 potassium chloride 20 mEq oral packet 2022 023 [email or web address] 0 Not available 14:32:40 potassium chloride ER 20 mEq tablet,exte nded release 2022 023 [facility], [address] [place] [address], [phone], 14:30:28 Patient TargetsNo targets recorded. Patient InstructionsNo instructions recorded. Reason for Referral None Reported. Results Created Date Observation Date Name Description Value Unit Range Abnormal Flag Note LastModifiedBy Organization Detail LastModifiedTime 04/01/2004/01/2023 BMP, serum or plasm a BUN 10 Not Available [facility] [address], [address], 04/01/2023 16:52:56 04/01/2004/01/2023 BMP, serum or plasm a Ca 1.06 Not Available [facility] [address], [address], 04/01/2023 16:52:56 04/01/2004/01/2023 BMP, serum or plasm a CI- 89 Not Available [facility] [address], [address], 04/01/2023 16:52:56 04/01/2004/01/2023 BMP, serum or plasm a CRE 0.8 Not Available [facility] [address], [address], 04/01/2023 16:52:56 04/01/2004/01/2023 BMP, serum or plasm a GLU 700 Not Available [facility] [address], [address], 04/01/2023 16:52:56 04/01/20 23 04/01/2023 BMP, serum or plasm a K+ 3.4 Not Available [facility] [address], [address], 04/01/2023 16:52:56 04/01/20 23 04/01/2023 BMP, serum or plasm a Na+ 128 Not Available [facility] [address], [address], 04/01/2023 16:52:56 04/01/20 23 04/01/2023 BMP, serum or plasm a tCO2 23 Not Available [facility] [address], [address], 04/01/2023 16:52:56 04/03/20 23 04/03/2023 BMP, serum or plasm a BUN 4 Not Available [facility] [address], [address], 04/03/2023 14:21:27 04/03/20 23 04/03/2023 BMP, serum or plasm a Ca Ionize d calciu m 1.2 Not Available [facility] [address], [address], 04/03/2023 14:21:27 04/03/20 23 04/03/2023 BMP, serum or plasm a CI- 100 Not Available [facility] [address], [address], 04/03/2023 14:21:27 04/03/20 23 04/03/2023 BMP, serum or plasm a CRE 0.8 Not Available [facility] [address], [address], 04/03/2023 14:21:27 04/03/20 23 04/03/2023 BMP, serum or plasm a GLU 259 Not Available [facility] [address], [address], 04/03/2023 14:21:27 04/03/20 23 04/03/2023 BMP, serum or plasm a K+ 3.2 Not Available [facility] [address] [place] [address], [address], 04/03/2023 14:21:27 04/03/20 23 04/03/2023 BMP, serum or plasm a Na+ 137 Not Available [facility] [address], [address], 04/03/2023 14:21:27 04/03/20 23 04/03/2023 BMP, serum or plasm a tCO2 24 Not Available [facility] [address], [address], 04/03/2023 14:21:27 04/03/20 23 04/03/2023 urina lysis , dipst ick Leukocytes neg Not Available [facility] [address] [place] [address], [address], 04/03/2023 14:21:32 04/03/20 23 04/03/2023 urina lysis , dipst ick Nitrite negati ve Not Available [facility] [address], [address], 04/03/2023 14:21:32 04/03/20 23 04/03/2023 urina lysis , dipst ick Urobilinogen neg Not Available [facility] [address] [place] [address], [address], 04/03/2023 14:21:32 04/03/20 23 04/03/2023 urina lysis , dipst ick Protein neg Not Available [facility] [address], [address], 04/03/2023 14:21:32 04/03/20 23 04/03/2023 urina lysis , dipst ick pH 6 Not Available [facility] [address], [address], 04/03/2023 14:21:32 11/01/04/03/2023 urina lysis , dipst ick Blood neg Not Available [facility] [address] [place] [address], [address], 04/03/2023 14:21:32 04/03/20 23 04/03/2023 urina lysis , dipst ick Specific Eden 1.005 Not Available [facility] [address] [place] [address], [address], 04/03/2023 14:21:32 04/03/20 23 04/03/2023 urina lysis , dipst ick Ketone neg Not Available [facility] [address], [address], 04/03/2023 14:21:32 04/03/20 23 04/03/2023 urina lysis , dipst ick Bilirubin neg Not Available [facility] [address] [place] [address], [address], 04/03/2023 14:21:32 04/03/20 23 04/03/2023 urina lysis , dipst ick Glucose neg Not Available [facility] [address], [address], 04/03/2023 14:21:32 04/03/20 23 04/03/2023 urina lysis , dipst ick Appearance clear they were both Not Available [facility] [address] [place] [address], [address], 04/03/2023 14:21:32 04/03/20 23 04/03/2023 urina lysis , dipst ick Color yellow Not Available [facility] [address] [place] [address], [address], 04/03/2023 14:21:32 04/03/20 23 04/03/2023 rapid SARS CoV 2 Ag, QL IA, respi rator y speci men rapid SARS CoV 2 Ag, QL IA, respiratory specimen positi ve Not Available [facility] [address] [place] [address], [address], 04/03/2023 14:19:58 Result Notes None recorded. Medical Equipment None Reported. Allergies Allergen ID Allergen Name Allergen Category Reaction Reaction Severity Criticality Documentation Date Start Date Code Code System Note Provider Name and Address Organization Details Recorded Time 3695 aspirin medicatio n Not available Not available Not available 04/03/2023 1191 RxNorm Not Available [facility] - production 4 03:57:53 3696 Product containin g penicilli n and antibioti c (product) medicatio n Not available Not available Not available 04/03/2023 75672 05 SNOMED Not Available [facility] - production 4 03:57:53 3697 Topamax medicatio n Not available Not available Not available 04/03/2023 68678 3 RxNorm Esther Weston MD [address] [place] [address],[address], [place], [address], [employer] 3 14:18:48 3698 Imitrex medicatio n Not available Not available Not available 04/03/2023 23362 3 RxNorm Esther Weston MD [address] [place] [address],[address], [place], [address], [employer] 3 14:18:55 Medications Name Sig Start Date [...] active Not Available Not Available Not Avai berta Trulicity 1.5 mg/0.5 mL subcutaneous pen injector [...] Available No t Available FreeStyle Jt 2 [place] USE DIRECTED EVERY 8 HOURS active Not [...] [degF] 136 mm[Hg] 78 mm[Hg] Not Available [employer] [employer] 3 16:51:43 Date Recorded Body temperature Oxygen saturation Oxygen saturation in Arterial blood by Pulse oximetry Body weight Respiratory rate Body height Heart rate Systolic blood pressure Diastolic blood pressure Provider Name and Address Organization Details Last Updated DateTime 3 98.1 [degF] 96 % 96 % 99593.4 g 18 /min 152.4 cm 88 /min 114 mm[Hg] 82 mm[Hg] Not Available [employer] 3 13:28:41 Date Recorded Oxygen saturation Oxygen saturation in Arterial blood by Pulse oximetry Body temperature Respiratory rate Heart rate Systolic blood pressure Diastolic blood pressure Provider Name and Address Organization Details Last Updated DateTime 3 95 % 95 % 100.5 [degF] 16 /min 93 /min 128 mm[Hg] 76 mm[Hg] Not Available [employer] 3 13:52:12 Date Recorded Body height Body mass index (BMI) Body weight Provider Name and Address Organization Details Last Updated DateTime 04/03/2023 152.4 cm 39.1 kg/m2 96773.47 g Esther Weston MD [address] [place] [address],[address], [place], [address], [place] - [employer] [facility] 04/03/2023 14:35:10 Date Recorded Oxygen saturation Oxygen saturation in Arterial blood by Pulse oximetry Body temperature Respiratory rate Heart rate Systolic blood pressure Diastolic blood pressure Provider Name and Address Organization Details Last Updated DateTime 4 97 % 97 % 98.5 [degF] 16 /min 86 /min 132 mm[Hg] 84 mm[Hg] Not Available [employer] 4 14:22:20 Social History None recorded. Functional Status None recorded. Mental Status None recorded. Family History Nothing Reported. Medical History No medical history recorded. Gynecological HistoryNo gynecological history recorded. Obstetrics History GPAL:G 0 P 0 0 0 0 Past Encounters Encounter ID Performer Location Encounter Start Date Encounter Closed Date Diagnosis/Indication Diagnosis SNOMED-CT Code Diagnosis ICD10 Code Diagnosis Note [id number] RADHA SHIELDS MD [facility] [employer] [address] [place] [phone] 04/01/2023 16:51:41 04/02/2023 14:54:05 Hyperglycemia 57639332 R73.9 Evaluation in the field was performed by my bench jeweler colleague, as noted above, I provided real-time [...] in the EDPt agrees to go to [facility] ED for further management of her [...] 1 L LR ) to prevent HHS [id number] Tamie Bridges MD Main - [address] [phone] 04/02/2023 13:28:36 04/02/2023 15:00:10 Hyperglycemia 11635124 R73.9 53 year old female being evaluated [...] assessment and plan as documented by the bench jeweler. I provided real-time medical direction for this encounter and was immediatel y available to provide additional phone-base d assistance as needed. [id number] Esther Weston MD [facility] [address] [place] [phone] 04/03/2023 13:52:09 04/03/2023 22:25:35 Hypokalemia 21643871 E87.6 BS 259 she says is her baseline midday-eder pennington is feeling better-the hypokalemi a is normal as the blood sugar decreases- we will place her on supplement ation for the next 5 days (verified her pharmacy is [facility])-anatoliy adams is not spilling glucose or ketones-ad vised to continue her usual medication / f/u wit pcp COVID-19 704403966 U07.1 Advised to continue to rest/ stay [...] take tylenol 4 xper day as needed [id number] Oneida Casper MD [facility] [address] [place] [phone] 10/02/2023 14:22:17 10/03/2023 11:26:47 Headache 11867037 R51.9 Health Concerns Section Related Observation LastModified by Organization Detai ls LastModified Time None Recorded Concern Status LastModified by Organization Details LastModified Time None Recorded Advance Directives Directive None Recorded Payers Encounter Date Sequence Insurance Name Policy Number Policy Chin Covered Member ID Chin Member ID Guarantor Name 04/01/2023 1 [facility] [employer] - DOS ON OR AFTER 2022 - DUAL ELIGIBLE - INTERMEDIATE OPTIONS AND ONE CARE (MEDICARE REPLACEMENT/ADV ANTAGE - HMO) Ramona Suarez [id number] Ramona Suarez 04/02/2023 1 [facility] [employer] - DOS ON OR AFTER 2022 - DUAL ELIGIBLE - INTERMEDIATE OPTIONS AND ONE CARE (MEDICARE REPLACEMENT/ADV ANTAGE - HMO) Ramona Suarez [id number] Ramona Suarez 04/03/2023 1 [facility] [employer] - DOS ON OR AFTER 2022 - DUAL ELIGIBLE - INTERMEDIATE OPTIONS AND ONE CARE (MEDICARE REPLACEMENT/ADV ANTAGE - HMO) Ramona Suarez [id number] Ramona Suarez 10/02/2023 1 [facility] [employer] - DOS ON OR AFTER 2022 - DUAL ELIGIBLE - INTERMEDIATE OPTIONS AND ONE CARE (MEDICARE REPLACEMENT/ADV ANTAGE - HMO) Ramona Suarez [id number] Ramona Suarez Notes Date Note Type Note [...] ................... ................... ................... ................... ................... ................... ........ Ophthalmology Assistant Note From Davidson Baptiste: Dispatched for the female democrat experiencing flu-like symptoms, Covid-19 positive as of 03/24/23. Encountered patient supine and conscious in bed with family present, family presents a positive Covid-19 at-home test which reads positive; family expresses the test was performed just prior to [facility] contact. During exam, patient disclosed that she is an insulin dependent diabetic and has not taken her insulin since receiving the first positive test result back on 03/24/23. Patient presents personal glucometer device that reads 'Hi'. [facility] [place] consulted for treatment plan. Skin warm, dry and of appropriate color for ethnicity. Head and neck free of trauma and edema. PERRL. -JVD. Breath sounds present, clear and equal bilaterally. Abdomen soft, non-tender and non-distended. Extremities free of trauma and edema. 4 lead EKG exhibits a sinus rhythm with no present ectopy. 20G IV established in left forearm; BGL Hi. Per [facility] [place] I-stat performed and exhibited a glucose of over 700 mg/DL and a K+ of 3.4. [facility] [place] ordered for patient to self administered 20units of her Tresiba sq. 1L lactated ringers administered via bolus. 40 mEq PO K+ administered. Patient to be transported to [facility] ED for further work-up. [facility] 401 provided transport, this signwriter accompanied patient to [facility]. Patient monitored for change in status while en route to [facility], with none noted; remained alert and oriented throughout contact. ................... ................... ................... ................... ................... ................... ................... ........ Disposition: Brian SHIELDS MD [address] [facility],[address], [place], [address], [place] [employer] 04/01/2023 19:20:47 04/02/2023 text/html HPI: Hx: Migraines. Patient today with continued elevated BG 450 via Fingerstick. Seen in [facility] ED last night declined admission. Restarted Tresiba [...] ................... ................... ................... ................... ................... ................... ........ Ophthalmology Assistant Note From Herman Navarro: Upon arrival, pt [...] Pt refused IV in ACL stating ? i t hurts there.? Other access was infiltrated. POC bloodwork unable to be obtained. Pt gave herself a neb treatment she has in home while on scene, and states she is giving herself 4 neb treatments a day. [facility] [place] contacted and pt was administered 40mg potassium oral and was advised to administer a one time dose of 10 units of her insulin in addition to the insulin she is taking per day. Pt told to contact PCP in the morning. Ophthalmology Assistant Allergies: Aspirin, Penicillin ................... ................... ................... ................... ................... ................... ................... ........ Disposition: Fulfilled Tamie Bridges MD [address] [facility],[address], [place], [address], [employer] 04/02/2023 14:11:02 04/03/2023 text/html CRC Nursing Assessment: Reason For Request: Follow up visit from 04/02 Chief Complaints: Diabetes Related, Electrolyte Imbalance, Medication Related PMH: COPD/Asthma, Diabetes Allergies: Aspirin, Penicillin Comments: [facility] [place] Remarks 53 year old female with DM2, [...] elevated BG 450 via Fingerstick. 04/01 in [facility] ED last night declined admission. Restarted Tresiba [...] 40 mEq of potassium and sent to [facility]. She reports she was given 10 [...] ................... ................... ................... ................... ................... ................... ........... Ophthalmology Assistant Note From Davidson Baptiste: Dispatched to the call address for the female with diabetic issue. Pt was seen on Saturday by this bench jeweler. Pt was found to be hyperglycemic (>700). Pt was given 1L LR, 40mEq of potassium and sent to the ED. Pt left AMA when advised to be admitted to the hospital. Pt was seen yesterday by a different bench jeweler and given more potassium. Pt states today [...] ........ Disposition: Fulfilled Esther Weston MD [address] [facility],[address], [place], [address], [facility] 04/03/2023 14:42:14 10/02/2023 text/html HPI: HX: ETOH abuse in remission. NO history of seizure.Patient called to report a seizure as witnessed by her this morning at 730am. No details given. Hung up on Interprter x 3 agreed to home CCA visit.DEclined 911 ED x 3. ................... ................... ................... ................... ................... ................... ................... ........ [facility] Nurse Triage Notes (Rosa Isela Hsieh): Comments: HPI reviewed, patient called w/ Final Finisher. Mobile Equipment Operator verified the member's name//address and phone number. [...] reports this has never happened before. This signwriter strongly encouraged member to present to the emergency room for further work up. Patient declined going to the ED or calling 911 multiple times. Pt reported she is holding off on going (to the ED) and if it comes to the point of needing help she will get it. This signwriter explained to member that [facility] would not be able to properly [...] migraines, [facility].Education provided on the response time and the member was advised to monitor reported s/s and seek emergency treatment if needed. Ophthalmology Assistant POC Test Results from Moshe Grewal Blood Glucose Measurement (1) [11:37] Blood Glucose: 221 mg/dL ................... ................... ................... ................... ................... ................... ................... ........ Ophthalmology Assistant Note From Moshe Grewal: Dispatched to the [...] after to inform them of the event. [facility] [place] contacted and informed and noted if the pt. did not want to be seen in the ER to just make sure she called if conditions worsened. all times are approx.report completed by henrry grewal. ................... ................... ................... ................... ................... ................... ................... ........ Disposition: Fulfilled Oneida Casper MD [address] [facility],[address], [place], [address], [facility] 10/02/2023 14:36:43 OBGyn Episode No OBEpisode recorded.
--- OUTSIDE RECORDS SUMMARY | 2024-07-06 13:30 | XMS_ITS | Encounter Summary ---
Author Organization [employer] Address [address] [facility] 7t [place] [address] Care Team Providers Care Call Person Name Role Phone Isabel Lewis DO Primary Care Provider [phone] Marti Elder PharmD Unavailable [phone] Dimitris Arambula YARD PILOT Unavailable Unavailable Reason for Visit * Reason Comments Med Refill Encounter Details Date Type Department Care Team (Late st Contact Info) Description 03/04/2024 Refill [facility] [address] [place], [place] [phone] Isabel Lewis DO [address] [place], [place] [phone] Social History Tobacco Use Types Packs/Day Years [...] housing situation today? I have hill manzo 10/30/[address] you li ve. Do you have problems with any of the following? None of the above 10/30/2023 Food Insecurity Answer Date Recorded Within the past 12 months, y ou worried that your food would run out before you got money to buy more: Never True 10/30/2023 Within the past 12 months,th e food you bought just didn't last and you didn't have enough money to get more: Never True Transportation Answer Date Recorded In the past 12 months, has l ack of transportation kept you from medical appts, meetings, work or from getting things needed for daily living? No 10/30/2023 Utilities Answer Date Recorded In the past 12 months, has t he electric, gas, oil or water company threatened to shut off services in your home? No 10/30/2023 Depression Answer Date Recorded Patient Health Questionnaire-2 [...] Description 07/23/2024 11:00 AM EST Medication Management [facility] [address] [place] [address] Marti Elder PharmD [address] [place] [address] documented as of this encounter Goals Goal Patient Goal Type Associated Problems Recent Progress Patient-Stated? Author Patient will adhere to medication regimen General No Ab Burns PharmD Hemoglobin A1c < 7 Result Component 9.9( [...] documented as of this encounter Care Teams Call Person Relationship Specialty Start Date End Date Isabel LewisDO [address] [place] [address] PCP - General Family Medicine 06/03/18 Marti Elder PharmD [address] [place] [phone] Pharmacist Internal Medicine 02/22/23 Dimitris Arambula FNP [address] [place] [phone] Nurse Practitioner Family Medicine 04/24/23 documented as of this encounter
--- OUTSIDE RECORDS SUMMARY | 2024-07-06 13:30 | XMS_ITS | Encounter Summary ---
Author Organization [employer] Address [address] [facility] 7t [place] [address] Care Team Providers Care Blueprint Machine Operator Name Role Phone Isabel Lewis DO Primary Care Provider [phone] Franki Walton PharmD Unavailable Unavail able Marti Elder PharmD Unavailable [phone] Dimitris Arambula CORRECTIONAL SUPERVISOR LIEUTENANT Unavailable Unavailable Encounter Details Date Type Department Care Team (Late st Contact Info) Description 10/30/2022 [facility] Information Management [address] [place], [place] [phone] Isabel Lewis DO [address] [place], [place] [phone] Social History Tobacco Use Types Packs/Day Years Used Date Smoking Tobacco: Every Day Cigarettes Passive Smoke Exposure: Current Smokeless Tobacco: Current Alcohol Use Standard Drinks/Week Comments Never 0 (1 standard drink = 0.6 oz pur e alcohol) Depression Answer Date Recorded Patient Health Questionnaire-9 Score 8 10/15/2022 Depression Answer Date Recorded Patient Health Questionnaire-2 Score 2 10/15/2022 Comments Unknown Sex and Gender Information Value [...] suspected to have Coronavirus/COVID-19? No / Unsure 10/24/2022 10:30 AM EDT documented as of this encounter Plan of Treatment Upcoming Encounters Date Type Department Care Team (Late st Contact Info) Description 07/23/2024 11:00 AM EST Medication Management [facility] [address] [place] [address] Marti Elder PharmD [address] [place] [address] documented as of this encounter Goals Goal Patient Goal Type Associated Problems Recent Progress Patient-Stated? Author Hemoglobin A1c < 7 Result Component 9.9(06/05/2024 11:40 AM EST) No Franki Walton, Kwaku documented as of this encounter Visit Diagnoses Not on filedocumented in this encounter Additional Health Concerns Assessment Noted Time PHQ-9 Depression Total Score: 8 10/16/19 23 1:05 PM EDT documented as of this encounter Care Teams Blueprint Machine Operator Relationship Specialty Start Date End Date Isabel Lewis DO [address] [place] [phone] PCP - General Family Medicine 06/03/18 Franki Walton, PharmD [address] [place] [phone] Pharmacist Internal Medicine 09/13/22 02/21/23 Marti Elder PharmD [address] [place] [phone] Pharmacist Internal Medicine 02/22/23 Dimitris Arambula FNP [address] [place] [address] Nurse Practitioner Family Medicine 04/24/23 documented as of this encounter
--- OUTSIDE RECORDS SUMMARY | 2024-07-06 13:30 | XMS_ITS | Encounter Summary ---
Author Organization [employer] Address [address] [facility] 7t [place] [address] Care Team Providers Care Head Bone Grinder Name Role Phone Isabel Lewis DO Primary Care Provider Puia, Marti PharmD Unavailable [phone] Dimitris Arambula GEOSPATIAL TECHNOLOGIST Unavailable Unavailable Encounter Details Date Type Department Care Team (Late st Contact Info) Description 06/25/2023 Orders Only [facility] [address] [place], [place] [phone] Puia, Marti, PharmD [address] [place], [place] [phone] Social History Tobacco Use Types Packs/Day Years Used Date Smoking Tobacco: Every Day Cigarettes Passive Smoke Exposure: Current Smokeless Tobacco: Current Alcohol Use Standard Drinks/Week Comments Never 0 (1 standard drink = 0.6 oz pur e alcohol) Depression Answer Date Recorded Patient Health Questionnaire-9 Score 4 05/02/2023 Patient Health Questionnaire-9 Score 4 05/02/2023 Last PHQ-9: Questionnaire Data Not on file 1 07/02/2022 Housing Stability Answer Date Recorded What is [...] Answer Date Recorded Patient Health Questionnaire-2 Score 0 05/02/2023 Comments Unknown Sex and Gender Information Value [...] Description 07/23/2024 11:00 AM EST Medication Management [facility] [address] [place] [address] Marti Eledr PharmD [address] [place] [address] documented as of this encounter Goals Goal Patient Goal Type Associated Problems Recent Progress Patient-Stated? Author Hemoglobin A1c < 7 Result Component 9.9( 5 11:40 AM EST) No Franki Walton PharmRomario Record your blood sugar as directed Result Component On track( 024 11:32 AM EDT) No Marti Elder PharmD Note: Use CGM, ensuring sensor is scanned at least once every 8 hours to capture 24H data. Check BG manually, as directed. documented as of this encounter Visit Diagnoses Not on filedocumented in this encounter Additional Health Concerns Assessment Noted Time PHQ-9 Depression Total Score: 4 05/02/20 23 9:16 AM EST documented as of this encounter Care Teams Head Bone Grinder Relationship Specialty Start Date End Date Isabel Lewis DO 230 [place] [address] PCP - General Family Medicine 06/03/18 Marti Elder, Kwaku [address] [place] [address] Pharmacist Internal Medicine 02/22/23 Dimitris Arambula FNP 230 [place] [address] Nurse Practitioner Family Medicine 04/24/23 documented as of this encounter
--- OUTSIDE RECORDS SUMMARY | 2024-07-06 13:30 | XMS_ITS | Encounter Summary ---
Author Organization [employer] Address 75 [facility] 7t [place] [address] Care Team Providers Care Pressurizer Name Role Phone Isabel Lewis DO Primary Care Provider [phone] Marti Elder PharmD Unavailable [phone] Dimitris Arambula AUTOMOBILE RENTAL CLERK Unavailable Unavailable Encounter Details Date Type Department Care Team (Late st Contact Info) Description 09/13/2023 Orders Only [facility] [address] [place], [place] [phone] Provider, MD Kingsley Social History Tobacco Use Types Packs/Day Years [...] Description 07/23/2024 11:00 AM EST Medication Management [facility] [address] [place] [address] Marti Elder PharmD [address] [place] [address] documented as of this encounter Goals Goal [...] as directed. documented as of this encounter Procedures Procedure Name Priority Date/Time Associated Diagnosis Comments HM COLONOSCOPY Routine 02/12/2019 9:13 AM EDT documented in this encounter Results * Hm Colonoscopy (02/12/2019 9:13 AM EDT) us Historical Provider HEALTH MAINTENANCE Final Result documented in this encounter Visit Diagnoses Not on filedocumented in this encounter Additional Health Concerns Assessment Noted Time PHQ-9 Depression Total Score: 9 07/02/19 24 9:27 AM EST documented as of this encounter Care Teams Pressurizer Relationship Specialty Start Date End Date Isabel Lewis DO [address] [place] [address] PCP - General Family Medicine 06/03/18 Marti Elder PharmD [address] [place] [address] Pharmacist Internal Medicine 02/22/23 Dimitris Arambula FNP [address] [place] [address] Nurse Practitioner Family Medicine 04/24/23 documented as of this encounter
--- OUTSIDE RECORDS SUMMARY | 2024-07-06 13:30 | XMS_ITS | Encounter Summary ---
Author Organization [employer] Address [address] [facility] 7t [place] [address] Care Team Providers Care Car Designer Name Role Phone Isabel Lewis DO Primary Care Provider Marti Elder PharmD Unavailable [phone] Dimitris Arambula HASSOCK MAKER Unavailable Unavailable Reason for Visit * Reason Comments Med Refill Encounter Details Date Type Department Care Team (Late st Contact Info) Description 06/15/2024 Refill [facility] 230 [place], [place] [phone] Isabel Lewis DO [address] [place], [place] [phone] Mood disorder (CMS/HCC); Type 2 diabetes mellitus without complication, with long-term current use of insulin (CMS/HCC) Social History Tobacco Use Types Packs/Day Years [...] the past 12 months, has t he [employer], gas, oil or water company threatened to [...] Description 07/23/2024 11:00 AM EST Medication Management [facility] [address] [place] [address] Marti Elder PharmD [address] [place] [address] documented as of this encounter Goals Goal Patient Goal Type Associated Problems Recent Progress Patient-Stated? Author Patient will adhere to medication regimen General No Ab Burns PharmD Hemoglobin A1c < 7 Result Component 9.9( 5 11:40 AM EST) No Franki Walton PharmD Record your blood sugar as directed Result Component On track( 024 11:32 AM EDT) No Marti Elder PharmD Note: Use CGM, ensuring sensor is scanned at least once every 8 hours to capture 24H data. Check BG manually, as directed. documented as of this encounter Visit Diagnoses Diagnosis Mood disorder ([facility]) Unspecified episodic mood disorder Type 2 diabetes mellitus without complication, with long-term current use of insulin ([facility]) documented in this encounter Additional Health Concerns Assessment Noted Time PHQ-9 Depression Total Score: 9 07/02/19 24 9:27 AM EST documented as of this encounter Care Teams Car Designer Relationship Specialty Start Date End Date Isabel Lewis DO [address] [place] [address] PCP - General Family Medicine 06/03/18 Marti Elder PharmD [address] [place] [phone] Pharmacist Internal Medicine 02/22/23 Dimitris Arambula FNP [address] [place] [phone] Nurse Practitioner Family Medicine 04/24/23 documented as of this encounter
--- OUTSIDE RECORDS SUMMARY | 2024-07-06 13:30 | XMS_ITS | Encounter Summary ---
Author Organization [employer] Address [address] [facility] 7t [place] [address] Care Team Providers Care Jammer Hooker Name Role Phone Isabel Lewis DO Primary Care Provider [phone] Marti Elder PharmD Unavailable [phone] Dimitris Arambula SURVEILLANCE DUAL RATE OFFICER Unavailable Unavailable Encounter Details Date Type Department Care Team (Late st Contact Info) Description 06/18/2024 Orders Only [facility] External Provider, [facility] Social History Tobacco Use Types Packs/Day Years [...] Description 07/23/2024 11:00 AM EST Medication Management [facility] 230 [place], [place] [phone] Marti Elder PharmD 230 [place], [place] [phone] documented as of this encounter Goals Goal [...] Procedure Name Priority Date/Time Associated Diagnosis Comments VENOUS BLOOD GAS Routine 06/18/2024 2:20 PM EST HIGH SENSITIVITY TROPONIN I Routine 06/18/2024 2:15 PM EST SARS COV2/INFLUENZA A/B AND RSV RNA QL NAAT Routine 06/18/2024 2:15 PM EST CBC WITH AUTO DIFFERENTIAL Routine 06/18/2024 2:15 PM EST B TYPE NATRIURETIC PEPTIDE (BNP) Routine 06/18/2024 2:15 PM EST COMPREHENSIVE METABOLIC PANEL Routine 06/18/2024 2:15 PM EST XR CHEST 2 VIEWS Routine 06/18/2024 1:27 PM EST documented in this encounter Results * (ABNORMAL) VENOUS BLOOD GAS (06/18/2024 2:20 PM EST) VBG pH 7.54(H) 7.32 - 7.43 [facility] Comment:METER #: [id number] additional_comment: Tad hopkinsd VBG PCO2 27 mmHg [facility] Comment:METER #: [id number] additional_comment: Tad hopkinsd VBG PO2 65 mmHg [facility] Comment:METER #: [id number] additional_comment: Cb sandeepd VBG Base Excess 1.6 mmol/L [facility] Comment:METER #: [id number] additional_comment: Tad hopkinsd VBG HCO3 23 22 - 26 mmol/L [facility] Comment:METER #: [id number] additional_comment: Tad wu O2 Sat, Zane 90.0 % [facility] Comment:METER #: [id number] additional_comment: Tad wu 06/18/2024 2:20 PM EST 06/18/2024 2:26 PM EST us Generic External Data Provider LAB BLOOD ORDERAB LES Final Result [facility] [address] [place] [phone] * B Type Natriuretic Peptide (BNP) (06/18/2024 2:15 PM EST) Pathologist [facility] B Type Natriuretic Peptide 23 <100 pg/mL [facility] Comment:For those patients w ho are being treated with Natrecor(nesiritide, recombinant BNP), BNP testing should beperformed at least two hours post treatment in order toensure that only endogenous levels of BNP are detected. 06/18/2024 2:15 PM EST 06/18/2024 2:38 PM EST Generic External Data Provider LAB BLOOD ORDERAB LES Final Result Performing Organization Address [facility]/ZIP Co de Phone Number [facility] [address] [place] [phone] * SARS-CoV-2 RNA, Influenza A/B, and RSV RNA, Ql NAAT (06/18/2024 2:15 PM EST) Pathologist [facility] Influenza A PCR NEGATIVE Negative [facility] Influenza B PCR NEGATIVE Negative [facility] Resp Syncy Virus RNA Qual PCR NEGATIVE Negative [facility] SARS COV2 PCR NEGATIVE Negative [facility] Comment:All test results mus t be correlated with clinical findings.Negative results do not preclude SARS-CoV2, influenza Avirus, influenza B virus and/or RSV infectionand should not be used as the sole basis for treatment orother patient management decisions. Negative results must becombined with clinical observations, patient history, andepidemiological information.This test has not been evaluated for monitoring treatment ofinfection.This test has been authorized by the FDA under an EmergencyUse Authorization (EUA) for use by authorized laboratories.Testing performed on the [employer] GeneXpert utilizingreal-time RT-PCR.All SARS CoV2 and positive influenza A/B results arereported to [facility]. 06/18/2024 2:15 PM EST 06/18/2024 2:19 PM EST Generic External Data Provider LAB MICROBIOLOGY - GENERAL ORDERABLES Final Result Performing Organization Address [facility] Co de Phone Number [facility] [address] [place] [phone] * High Sensitivity Troponin I (06/18/2024 2:15 PM EST) TROPONIN I HIGH SENSITIVITY <2.7 <3.5 - 17.0 ng/L [facility] Comment:The Maher high sens itivity Troponin-I results should beused in conjunction with other diagnostic information suchas ECG, clinical observations and information, and patientsymptoms to aid in the diagnosis of [place]. 06/18/2024 2:15 PM EST 06/18/2024 2:38 PM EST us Generic External Data Provider LAB BLOOD ORDERAB LES Final Result [facility] [address] [place] [address] [phone] * (ABNORMAL) Comprehensive Metabolic Panel (06/18/2024 2:15 PM EST) [facility] Sodium 142 135 - 145 mmol/L [facility] Potassium 3.4 3.3 - 5.1 mmol/L [facility] Chloride 112(H) 96 - 108 mmol/L [facility] Carbon Dioxide 23 22 - 29 mmol/L [facility] Anion Gap 10(L) 12 - 20 [facility] Urea Nitrogen (BUN) 7(L) 9 - 16 mg/dL [facility] Creatinine, Serum 0.78 0.5 - 1.4 mg/dL [facility] Creatinine Clr Calc Pharmacy 83.2 [facility] Comment:Provided height and weight: 162.56 cm,81.6 kg.eGFR (calculated from the MDRD study equation) and eCrCl(calculated from the Cockcroft-Gault equation) are based ondifferent parameters and may not yield comparable results.If eCrCl result is absurd, please check patient'sheight/weight. Estimated Glomerular Filt Rate >60 [facility] Comment:Chronic Kidney Disea se: Estimated GFR < 60 mL/min/1.40a7Sptomc Kidney Disease: Estimated GFR < 15 mL/min/1.73m2 Glucose 188(H) 60 - 115 mg/dL [facility] Calcium 7.9(L) 8.4 - 10.2 mg/dL [facility] Bilirubin, Total 0.3 0.0 - 1.0 mg/dL [facility] Aspartate Amino Transferase 16 5 - 31 U/L [facility] Alanine Aminotransferase <6 0 - 31 U/L [facility] Total Protein 6.5 6.5 - 8.0 g/dL [facility] Albumin Level 3.4(L) 3.5 - 5.0 g/dL [facility] Alkaline Phosphatase 130(H) 39 - 117 U/L [facility] 06/18/2024 2:15 PM EST 06/18/2024 2:21 PM EST us Generic External Data Provider LAB BLOOD ORDERAB LES Final Result Performing Organization Address City/State/[facility] Co de Phone Number [facility] [address] [place] [address] [phone] * (ABNORMAL) CBC auto differential (06/18/2024 2:15 PM EST) White Blood Count 16.9(H) 4.8 - 10.8 X10*3/uL [facility] Red Blood Count 3.75(L) 4.20 - 5.50 X10*6/uL [facility] Hemoglobin 10.3(L) 12.0 - 16.0 g/dl [facility] Hematocrit 32.1(L) 37.0 - 47.0 % [facility] Mean Corpuscular Volume 85.6 80.0 - 98.0 fL [facility] Mean Corpuscular Hemoglobin 27.5 27.0 - 33.0 pg [facility] Mean Corpuscular HGB Conc 32.1 31.0 - 35.0 g/dl [facility] Red Cell Distribution Width 17.2(H) 11.0 - 16.0 % [facility] Platelet Count 338 160 - 400 X10*3/uL [facility] Mean Platelet Volume 9.7 9.4 - 12.3 fL [facility] Neutrophils Percent Auto 87.8(H) 45 - 73 % [facility] Imm Gran Pct Auto 0.5(H) 0.0 - 0.4 % [facility] Lymphocytes Percent Auto 5.2(L) 20 - 40 % [facility] Monocytes Percent Auto 5.5 2 - 11 % [facility] Eosinophils Percent Auto 0.4 0 - 4 % [facility] Basophils Percent Auto 0.6 0 - 2 % [facility] NRBC Pct Auto 0.0 0.0 - 0.2 /100WBC [facility] Neutrophils Absolute Auto 14.8(H) 2.0 - 8.3 x10*3/uL [facility] Imm Gran Abs Auto 0.08(H) 0.00 - 0.03 X10*3/uL [facility] Lymphocytes Absolute Auto 0.9(L) 1.2 - 4.9 X10*3/uL [facility] Monocytes Absolute Auto 0.9 0.1 - 1.2 X10*3/uL [facility] Eosinophils Absolute Auto 0.1 0.0 - 0.4 X10*3/uL [facility] Basophils Absolute Auto 0.1 0.0 - 0.2 X10*3/uL [facility] NRBC Abs Auto 0.000 0.0 - 0.012 X10*3/uL [facility] 06/18/2024 2:15 PM EST 06/18/2024 2:21 PM EST us Generic External Data Provider LAB BLOOD ORDERAB LES Final Result Performing Organization Address [facility]/State/[facility] Co de Phone Number [facility] [address] [place] [address] [phone] * XR Chest 2 Views (06/18/2024 1:27 PM EST) Anatomical Region Laterality Modality Chest Radiographic Lisa ging 06/18/2024 1:27 PM EST Narrative 06/18/2024 1:50 PM EST ? [facility] [facility] ?[address] ?[place] [address] ?XRay Report ? Signed ? Patient: Suarez,Ramona ?MR#: [id number] ? : 1970 ?Acct:[id number] ? Age/Sex: 54 / F ?ADM Date: 06/18/24 ? Loc: HO.ED ? Attending Dr: ? Ordering Physician: Frances Yen MD ?? Date of Service: 06/18/24 ?? Procedure(s): XR chest 2V ?? Accession Number(s): [id number] ? cc: Frances Yen MD; Isabel Lewis DO ? EXAMINATION: ?? XR CHEST ? CLINICAL INFORMATION: ?? SOB ? COMPARISON: ?? X-ray dated July 27, 2022. ? TECHNIQUE: ?? 2 views of the chest were obtained. ? FINDINGS: ?? Pulmonary reticular pattern. Indistinct margins in the perihilar ?? regions with haziness more conspicuous on the right side. No pleural ?? effusion. No pneumothorax. Cardiomediastinal silhouette appears mildly ?? prominent. ?? Multilevel thoracic and upper lumbar spondylosis. Osteopenia versus ?? osteoporosis. Vascular clips in the upper abdomen on the lateral ?? projection. ? XR/XR chest 2V ?? IMPRESSION: ?? Consider pulmonary edema in the correct clinical settings. Alternative ?? diagnosis of acute inflammatory versus infectious small airway disease. ? Electronically signed by: ??Joey Camarillo MD ??06/18/2024 01:47 PM ?? EST RP ? Dictated By: ?Joey Robles MD ? Signed By: ?<Electronically signed by Joey Andrade MD in OV> ? 06/18/24 1347 ? DD/ 1327 ? TD/TT: 06/18/24 1344 ? Inspector Eyeglass Frames: ? Procedure Note [place], Image - 06/18/[address] [address] XRay Report Signed Patient: Maine Suarez#: [id number] : 1970Acct:[id number] Age/Sex: 54 / FADM Date: 06/18/24 Loc: HO.ED Attending Dr: Ordering Physician: Frances Yen MD Date of Service: 06/18/24 Procedure(s): XR chest 2V Accession Number(s): [id number] cc: Frances Yen MD; Isabel Lewis DO EXAMINATION: XR CHEST CLINICAL INFORMATION: SOB COMPARISON: X-ray dated July 27, 2022. TECHNIQUE: 2 views of the chest were obtained. FINDINGS: Pulmonary reticular pattern. Indistinct margins in the perihilar regions with haziness more conspicuous on the right side. No pleural effusion. No pneumothorax. Cardiomediastinal silhouette appears mildly prominent. Multilevel thoracic and upper lumbar spondylosis. Osteopenia versus osteoporosis. Vascular clips in the upper abdomen on the lateral projection. XR/XR chest 2V IMPRESSION: Consider pulmonary edema in the correct clinical settings. Alternative diagnosis of acute inflammatory versus infectious small airway disease. Electronically signed by: Joey Camarillo MD 06/18/2024 01:47 PM EST RP Dictated By: Joey Robles MD Signed By: <Electronically signed by Joey Andrade MDin OV> 06/18/24 1347 DD/ 1327 TD/TT: 06/18/24 1344 Inspector Eyeglass Frames: [facility] External Provider IMG XR PROCEDURES Final Result documented in this encounter Visit Diagnoses Not on filedocumented in this encounter Additional Health Concerns Assessment Noted Time PHQ-9 Depression Total Score: 9 07/02/19 24 9:27 AM EST documented as of this encounter Care Teams Jammer Hooker Relationship Specialty Start Date End Date Isabel Lewis DO [address] [place] [phone] PCP - General Family Medicine 06/03/18 Marti Elder PharmD [address] [place] [phone] Pharmacist Internal Medicine 02/22/23 Dimitris Arambula FNP [address] [place] [phone] Nurse Practitioner Family Medicine 04/24/23 documented as of this encounter
--- OUTSIDE RECORDS SUMMARY | 2024-07-06 13:30 | XMS_ITS | Encounter Summary ---
Author Organization [employer] Address [address] [facility] 7t [place] [address] Care Team Providers Care Automobile Repair Service Estimator Name Role Phone Isabel Lewis DO Primary Care Provider [phone] Franki Walton PharmD Unavailable Unavail able Marti Elder PharmD Unavailable [phone] Dimitris Arambula Unavailable Unavailable Reason for Visit * Reason Comments Med Refill Encounter Details Date Type Department Care Team (Late st Contact Info) Description 09/09/2022 Refill [facility] MED[facility] [address] [place] [address] Dimitris Arambula FNP Mood disorder (CMS/HCC) Social History Tobacco Use Types Packs/Day [...] suspected to have Coronavirus/COVID-19? No / Unsure 09/05/2022 10:50 AM EDT documented as of this encounter Plan of Treatment Upcoming Encounters Date Type Department Care Team (Late st Contact Info) Description 07/23/2024 11:00 AM EST Medication Management [facility] [address] [facility] [place] [address] Marti Elder PharmD [address] [facility] [place] [address] documented as of this encounter Visit Diagnoses Diagnosis Mood disorder (CMS/HCC) Unspecified episodic mood disorder documented in this encounter Additional Health Concerns Assessment Noted Time PHQ-9 Depression Total Score: 7 08/29/19 23 2:26 PM EDT documented as of this encounter Care Teams Automobile Repair Service Estimator Relationship Specialty Start Date End Date Isabel Lewis DO [address] [facility] [place] [address] PCP - General Family Medicine 06/03/18 Franki Walton PharmD [address] [place] [address] Pharmacist Internal Medicine 09/13/22 02/21/23 Marti Elder, MisbahD [facility] [place] [address] Pharmacist Internal Medicine 02/22/23 Dimitris Arambula FNP [address] [place] [address] Nurse Practitioner Family Medicine 04/24/23 documented as of this encounter
--- OUTSIDE RECORDS SUMMARY | 2024-07-06 13:31 | XMS_ITS | Continuity of Care Document ---
Author Organization [facility] Address [address] [facility] [place] [address]- Care Team Providers Care Supervisor Malted Milk Name Role Phone Isabel Lewis DO Primary Care Physician En[place] [facility] [place] [id number] Date(s): 02/22/24 - 06/21/24 [facility] [address] [place], [place] [address] Attending Physician: Liborio Virgen MD Admitting Physician: Liborio Virgen MD Referring Physician: Isabel Lewis DO Encounter Type: Pre-OutPatient One Time Allergies, Adverse Reactions, Alerts Substance Criticality Severity Reaction Reaction Severity Status penicillins hives Active Imitrex hives tachycardia Active Topamax psychiatric Active Immunizations Given and Recorded Vaccine Date Status Refusal Reason influenza virus vaccine, inactivated 05/03/15 Give n influenza virus vaccine, inactivated 06/17/12 Give n pneumococcal 23-valent vaccine 06/17/12 Given Medications Actemra ACTPen 162 mg/0.9 mL subcutaneous solution 0 Refills, Maintenance, 09/20/23 8:48:00 AM EDT, Partial fill upon patient request if the prescription is for a schedule II opioid drug. Start Date: 09/20/23 Status: Ordered Repeat number: 1 albuterol 0.083% inhalation solution 3 mL = 2.5 mg, Inhalation, Every 6 hours, PRN for wheezing, # 25 each, 0 Refills, Maintenance, 05/03/15 2:04:36 PM EST, Solution Start Date: 05/03/15 Status: Ordered Quantity: 25.0 Unit: each Repeat number: 1 albuterol 2.5mg / 3mL (0.083%) (OP) 3 mL = 2.5 mg, Neb, Every 6 hours, PRN Wheezing/Shortness of Breath, 0 Refills, Maintenance Start Date: 11/17/18 Status: Ordered Repeat number: 1 amitriptyline 10 mg oral tablet 20 mg, 2, tablet, By Mouth, Daily at bedtime, # 60 tablet, Refills 0, Maintenance, 11/17/18 1:15:27 PM EDT Start Date: 11/17/18 Status: Ordered Quantity: 60.0 Unit: tablet Repeat number: 1 Ativan 0.5 mg oral tablet 2 tablet = 1 mg, By Mouth, 2 times a day, PRN for anxiety, 0 Refills, Maintenance, 05/03/15 2:06:01 PM EST, Tablet Start Date: 05/03/15 Status: Ordered Repeat number: 1 atorvastatin 10 mg oral tablet 1 tablet = 10 mg, By Mouth, Daily, # 30 tablet, 0 Refills, Maintenance Start Date: 11/17/18 Status: Ordered Quantity: 30.0 Unit: tablet Repeat number: 1 baclofen 10 mg oral tablet 30 mg, 3, tablet, By Mouth, Daily at bedtime, # 90 tablet, Refills 5, Tot. Refills 5, Maintenance, 01/13/19 11:08:44 AM EDT, Route to Pharmacy Electronically, [facility] Start Date: 01/13/19 Stop Date: 07/12/19 Status: Ordered Quantity: 90.0 Unit: tablet Repeat number: 6 Calcium 600+D oral tablet 1 tablet, By Mouth, 2 times a day, 0 Refills, Maintenance, 05/03/15 2:07:12 PM EST Start Date: 05/03/15 Status: Ordered Repeat number: 1 chantix 1mg tablet 1 tablet = 1 mg, By Mouth, 2 times a day, for 90 days, # 180 tablet, 4 Refills, Acute 09/10/25 10:49:00 AM EDT, 06/17/24 10:49:00 AM EST, Tablet, [facility], Please fill after patient has already completed chantix starter pack., 160, cm, 06/17/24 9:40:00 EST, Height, 82, kg, 04/26/23 12:31:00 EST, Dry Weight Start Date: 06/17/24 Stop Date: 09/10/25 Status: Ordered Quantity: 180.0 Unit: tablet Repeat number: 5 Chantix Starter Pack 0.5 mg-1 mg oral tablet 1 tablet, By Mouth, 2 times a day, as directed on package labeling, # 53 tablet, 0 Refills, Maintenance, 06/17/24 10:49:00 AM EST, Tablet, [facility], Partial fill upon patient request if the prescription is for a schedule II opioid drug., 1 tablet By Mouth 2 times a day,Instr:asdirected on package labeling, 160, cm, 06/17/24 9:40:00 EST, Height, 82, kg, 04/26/23 12:31:00 EST,Dry Weight Start Date: 06/17/24 Status: Ordered Quantity: 53.0 Unit: tablet Repeat number: 1 Daily-Manjeet with Iron 1 tablet, By Mouth, Daily, 0 Refills, Maintenance, 11/17/18 1:21:30 PM EDT Start Date: 11/17/18 Status: Ordered Repeat number: 1 Deep Sea Nasal 0.65% nasal spray See Instructions, USE 2 SPRAYS IN EACH NOSTRIL FOUR TIMES DAILY, # 44 mL, 3 Refills, Maintenance, 11/19/23 4:27:00 PM EDT, [facility], 11, USE 2 SPRAYS IN EACH NOSTRIL FOUR TIMES DAILY, 160, cm, 09/20/23 8:37:00 EDT, Height, 82, kg, 04/26/23 12:31:00 EST, Dry Weight Start Date: 11/19/23 Status: Ordered Quantity: 44.0 Unit: mL Repeat number: 1 duloxetine 30 mg oral enteric coated capsule 1 capsule = 30 mg, By Mouth, 2 times a day, 0 Refills, Maintenance, 11/17/18 10:43:20 AM EDT Start Date: 11/17/18 Status: Ordered Repeat number: 1 folic acid 1 mg oral tablet 1 tablet = 1 mg, By Mouth, Daily, # 30 tablet, 0 Refills, Maintenance, 05/03/15 2:05:21 PM EST, Tablet Start Date: 05/03/15 Status: Ordered Quantity: 30.0 Unit: tablet Repeat number: 1 FreeStyle Jt 2 Sensor kit FreeStyle Jt 2 Sensor kit, 0 Refills, Maintenance, 09/20/23 8:49:00 AM EDT Start Date: 09/20/23 Status: Ordered Repeat number: 1 furosemide 80 mg oral tablet Refills 0, Maintenance, 09/20/23 8:50:00 AM EDT, Partial fill upon patient request if the prescription is for a schedule II opioid drug. Start Date: 09/20/23 Status: Ordered Repeat number: 1 furosemide 80 mg tablet furosemide 80 mg tablet, 0 Refills, Maintenance, 12/07/22 11:06:00 AM EDT Start Date: 12/07/22 Status: Ordered Repeat number: 1 gabapentin 600 mg oral tablet 1 tablet = 600 mg, By Mouth, 3 times a day, # 270 tablet, 0 Refills, Maintenance, 05/03/15 2:08:58 PM EST, Tablet Start Date: 05/03/15 Status: Ordered Quantity: 270.0 Unit: tablet Repeat number: 1 glipiZIDE 10 mg oral tablet, extended release 0 Refills, Maintenance, 09/20/23 8:47:00 AM EDT, Partial fill upon patient request if the prescription is for a schedule II opioid drug. Start Date: 09/20/23 Status: Ordered Repeat number: 1 Incruse Ellipta 62.5 mcg/inh inhalation powder 1 each, Inhalation, Every 24 hours, doses should be taken at least 24 hours apart, # 30 each, 3 Refills, Maintenance, 09/14/21 12:26:00 PM EDT, Powder, [facility], Partial fill upon patient request if the prescription is for a schedule II opioid drug., 160, cm, 05/24/21 14:56:00 EST, Height Start Date: 09/14/21 Status: Ordered Quantity: 30.0 Unit: each Repeat number: 4 ipratropium nasal 21 mcg/inh spray See Instructions, PRN Nasal Congestion, 1 spray each nostril BID, # 1 each, 4 Refills, Maintenance,10/14/20 10:50:00 AM EDT, [facility], Partial fill upon patient request if the prescription is for a schedule II opioid drug., 1 spray each nostril BID,PRN:Nasal Congestion, 160, cm, 05/06/20 10:27:00 EST, Height Start Date: 10/14/20 Status: Ordered Quantity: 1.0 Unit: each Repeat number: 5 isopropyl alcohol 70% topical pad 0 Refills, Maintenance, 09/20/23 8:49:00 AM EDT, Partial fill upon patient request if the prescription is for a schedule II opioid drug. Start Date: 09/20/23 Status: Ordered Repeat number: 1 Jardiance 10 mg oral tablet 0 Refills, Maintenance, 09/20/23 8:47:00 AM EDT, Partial fill upon patient request if the prescription is for a schedule II opioid drug. Start Date: 09/20/23 Status: Ordered Repeat number: 1 Kevzara Pre-filled Pen Subcutaneous Infusion, 0 Refills, Maintenance, 10/24/21 10:36:00 AM EDT, Partial fill upon patient request if the prescription is for a schedule II opioid drug. Start Date: 10/24/21 Status: Ordered Repeat number: 1 magnesium oxide 400 mg oral tablet 1 tablet, By Mouth, Daily in AM, # 30 tablet, 5 Refills, Maintenance, 06/16/24 3:30:00 PM EST, [facility], 160, cm, 09/20/23 8:37:00 EDT, Height, 82, kg, 04/26/23 12:31:00 EST, DryWeight Start Date: 06/16/24 Status: Ordered Quantity: 30.0 Unit: tablet Repeat number: 1 melatonin 10mg melatonin 10mg, Refills 0, Maintenance, 11/23/16 11:11:17 AM EDT, Compound Start Date: 11/23/16 Status: Ordered Repeat number: 1 metFORMIN 500 mg oral tablet 0 Refills, Maintenance, 09/22/21 10:51:00 AM EDT, Partial fill upon patient request if the prescription is for a schedule II opioid drug. Start Date: 09/22/21 Status: Ordered Repeat number: 1 metFORMIN 500 mg oral tablet 0 Refills, Maintenance, 09/22/21 10:51:00 AM EDT, Partial fill upon patient request if the prescription is for a schedule II opioid drug. Start Date: 09/22/21 Status: Ordered Repeat number: 1 methotrexate 2.5 mg oral tablet 8 tablet = 20 mg, By Mouth, 8 tabs weekly, 0 Refills, Maintenance, 01/24/18 10:40:19 AM EDT Start Date: 01/24/18 Status: Ordered Repeat number: 1 Nicotine 2 mg gum See Instructions, CHEW 1 PIECE OF PIECE OF GUM EVERY 2 HOURS NEEDED, # 100 gum, 1 Refills, Maintenance, 09/19/22 11:44:00 AM EDT, [facility], 160, cm, 08/03/22 11:52:00 EST, Height Start Date: 09/19/22 Status: Ordered Quantity: 100.0 Unit: Repeat number: 1 Nicotrol NS 10 mg/mL nasal spray 1 sprays, Nares, Both, Every 2 hours, PRN as needed for smoking cessation, # 10 mL, 11 Refills, Acute 09/20/24 9:57:00 AM EDT, 09/20/23 9:57:00 AM EDT, [place], [facility], Partial fill upon patient request if the prescription is for a schedule II opioid drug., 1 sprays Nares, Both Every 2 hours,PRN:as needed for smoking cessation, 160, cm, 09/20/23 8:37:00 EDT, Height, 82, kg, 04/26/23 12:31:00 EST, Dry Weight Start Date: 09/20/23 Stop Date: 09/20/24 Status: Ordered Quantity: 10.0 Unit: mL Repeat number: 12 omeprazole 40 mg oral enteric coated capsule 1 capsule = 40 mg, By Mouth, Daily, # 30 capsule, 0 Refills, Maintenance, 06/17/12 1:30:13 PM EST, EC Capsule Start Date: 06/17/12 Stop Date: 07/17/12 Status: Ordered Quantity: 30.0 Unit: capsule Repeat number: 1 OneTouch Delica Plus Lancet 33 gauge OneTouch Delica Plus Lancet 33 gauge, 0 Refills, Maintenance, 09/20/23 8:49:00 AM EDT Start Date: 09/20/23 Status: Ordered Repeat number: 1 oxybutynin 5 mg/24 hours oral tablet, extended release 0 Refills, Maintenance, 12/07/22 11:06:00 AM EDT, Partial fill upon patient request if the prescription is for a schedule II opioid drug. Start Date: 12/07/22 Status: Ordered Repeat number: 1 polyethylene glycol 3350 oral powder for reconstitution = 17 Gm, By Mouth, Daily, dissolve in water before taking, # 255 Gm, 0 Refills, Maintenance, 11/17/18 1:14:25 PM EDT, REC Powder Start Date: 11/17/18 Status: Ordered Quantity: 255.0 Unit: g Repeat number: 1 predniSONE 10 mg oral tablet See Instructions, TAKE 4 TABLETS BY MOUTH ONCE DAILY FOR 2 WEEKS, THEN TAKE 3 TABLETS BY MOUTH ONCEDAILY FOR 2 WEEKS, THEN TAKE 2 TABLETS BY MOUTH ONCE DAILY FOR 4 WEEKS, # 120 tablet, 0 Refills, [facility], 160, cm, 10/24/21 10:32:00 EDT, Height Start Date: 01/16/22 Status: Ordered Quantity: 120.0 Unit: tablet Repeat number: 1 PROzac 40 mg oral capsule 1 capsule = 40 mg, By Mouth, Daily, # 30 capsule, 0 Refills, Maintenance, 05/03/15 2:05:47 PM EST, Capsule Start Date: 05/03/15 Status: Ordered Quantity: 30.0 Unit: capsule Repeat number: 1 SEROquel 200 mg oral tablet 1 tablet = 200 mg, By Mouth, Daily, # 180 tablet, 0 Refills, Maintenance, 05/03/15 2:09:14 PM EST, Tablet Start Date: 05/03/15 Status: Ordered Quantity: 180.0 Unit: tablet Repeat number: 1 Spiriva Respimat 10 ACT 2.5 mcg/inh inhalation aerosol 2 puffs = 5 mcg, Inhalation, Daily, j44.9, # 1 each, 11 Refills, Maintenance, 09/23/23 4:04:00 PM EDT, Aerosol, [facility], Partial fill upon patient request if the prescription isfor a schedule II opioid drug., 160, cm, 09/20/23 8:37:00 EDT, Height, 82, kg, 04/26/23 12:31:00 EST, Dry Weight Start Date: 09/23/23 Status: Ordered Quantity: 1.0 Unit: each Repeat number: 12 Symbicort 160mcg/4.5mcg Inhaler See Instructions, INHALE 2 PUFFS BY MOUTH TWICE DAILY IN THE MORNING AND IN THE EVENING RINSE MOUTHAFTER USING., # 10.2 Gm, Refills 11, Maintenance, 12/23/23 3:56:00 PM EDT, Instructions Replace Required Details, Route to Pharmacy Electronically, [id number], [facility], 160, cm, 09/20/23 8:37:00 EDT, Height, 82, kg, 04/26/23 12:31:00 EST, Dry Weight Start Date: 12/23/23 Status: Ordered Quantity: 10.2 Unit: g Repeat number: 1 Tresiba FlexTouch 200 units/mL subcutaneous solution 0 Refills, Maintenance, 09/20/23 8:48:00 AM EDT, Partial fill upon patient request if the prescription is for a schedule II opioid drug. Start Date: 09/20/23 Status: Ordered Repeat number: 1 Trulicity Pen 3 mg/0.5 mL subcutaneous solution 0 Refills, Maintenance, 12/07/22 11:07:00 AM EDT, Partial fill upon patient request if the prescription is for a schedule II opioid drug. Start Date: 12/07/22 Status: Ordered Repeat number: 1 Ventolin 90 mcg Inhaler 2, puffs, Inhalation, 4 times a day, Refills 0, Maintenance, 11/17/18 1:10:57 PM EDT Start Date: 11/17/18 Status: Ordered Repeat number: 1 Vitamin B12 1000 mcg oral tablet 1 tablet = 1,000 mcg, By Mouth, Daily, # 30 tablet, 0 Refills, Maintenance, 11/17/18 1:16:37 PM EDT,Tablet Start Date: 11/17/18 Status: Ordered Quantity: 30.0 Unit: tablet Repeat number: 1 Vitamin B2 100 mg oral tablet 2 tablet, By Mouth, Daily in AM, AND EVENING., # 120 tablet, 5 Refills, Maintenance, 06/16/24 3:30:00 PM EST, [facility], 160, cm, 09/20/23 8:37:00 EDT, Height, 82, kg, 04/26/23 12:31:00 EST, Dry Weight Start Date: 06/16/24 Status: Ordered Quantity: 120.0 Unit: tablet Repeat number: 1 Vitamin D3 2000 intl units oral tablet 1 tablet = 2,000 International_Units, By Mouth, Daily, 0 Refills, Maintenance, 05/03/15 2:07:31 PM EST Start Date: 05/03/15 Status: Ordered Repeat number: 1 Problem List Condition Confirmation Course Effective Dates Status Health Status Informant Abuse, drug or alcohol Confirmed 06/17/12 Active Asthma Confirmed Active Bipolar disorder Confirmed Active CAP (community acquired pneumonia) Confirmed 06/17/12 Active COVID-19 1 Confirmed 04/04/23 Active Fibromyalgia Confirmed Active GERD (gastroesophageal reflux disease) Confirmed Active Hyperparathyroidism Confirmed Active Major depressive disorder Confirmed 06/17/12 Active Obese class I Confirmed Active PTSD (post-traumatic stress disorder) Confirmed 06/17/12 Active 1Problem added by Discern Expert Social History Social History Type Response Smoking Status 10 or more cigarette s (1/2 pack or more)/day in last 30 days; Interested in cessation: No; Patient wants NRT during admission No entered on: 06/17/24 Sex Sex Representation Female (finding) Patient Care team information Care Team Personnel Name: Isabel Lewis DO Position: [facility] Outreach Member Role: PCP Address: [address] [place] [address] Telecom: Care Team Related Persons Name: CATHERINE URRUTIA Name: [employer]OM[employer], [employer] Insurance Providers Guarantor name: [facility] Information #: 1 Payer: [facility] [employer]/ONE CARE Member Number: [id number] Policy Number: NA Group Number: [facility] Health Plan Information #: 2 Payer: [facility] Member Number: [id number] Policy Number: NA Group Number: [id number]
--- OUTSIDE RECORDS SUMMARY | 2024-07-06 13:31 | XMS_ITS | Encounter Summary ---
Author Organization [employer] Address [address] [facility] 7t [place] [address] Care Team Providers Care Boatwright Name Role Phone Isabel Lewis DO Primary Care Provider [phone] Franki Walton PharmD Unavailable Unavail able Marti Elder PharmD Unavailable [phone] Dimitris Arambula ROVING DEPARTMENT SUPERVISOR Unavailable Unavailable Encounter Details Date Type Department Care Team (Late st Contact Info) Description 06/14/2022 Orders Only [facility] [address] [place], [place] [phone] Isabel Baca LPN Social History Tobacco Use Types Packs/Day Years Used Date Smoking Tobacco: Never Assessed Comments Unknown Sex and Gender Information Value [...] 11:00 AM EST Medication Management [facility] [address] [place], [place] [phone] PuiaEliazarMarti, PharmD [address] [place], [place] [phone] documented as of this encounter Visit Diagnoses Not on filedocumented in this encounter Additional Health Concerns Assessment Noted Time PHQ-9 Depression Total Score: 9 05/22/20 22 12:49 PM EST documented as of this encounter Care Teams Boatwright Relationship Specialty Start Date End Date Isabel Lewis DO [address] [place] [address] PCP - General Family Medicine 06/03/18 Franki Walton, PharmD [address] [place] [phone] Pharmacist Internal Medicine 09/13/22 02/21/23 Marti Elder PharmD [address] [place] [address] Pharmacist Internal Medicine 02/22/23 Dimitris Arambula FNP [address] [place] [phone] Nurse Practitioner Family Medicine 04/24/23 documented as of this encounter
--- OUTSIDE RECORDS SUMMARY | 2024-07-06 13:31 | XMS_ITS | Encounter Summary ---
Author Organization [employer] Address [address] [place] [address] 7t [place] [address] Care Team Providers Care Backer Up Name Role Phone Isabel Lewis DO Primary Care Provider Franki Walton PharmD Unavailable Unavail able Puia Marti PharmD Unavailable [phone] Dimitris Arambula SLOT OPERATIONS MANAGER Unavailable Unavailable Reason for Visit * Reason Comments Med Refill Encounter Details Date Type Department Care Team (Late st Contact Info) Description 06/20/2022 Refill [facility] [address] [place], [place] [phone] Isabel Lewis DO [address] [place], [place] [phone] Mild persistent asthma, uncomplicated Social History Tobacco Use Types Packs/Day Years [...] Description 07/23/2024 11:00 AM EST Medication Management [facility] [address] [place], [place] [phone] Puia, Marti, PharmD [address] [place] [address] documented as of this encounter Visit Diagnoses Diagnosis Mild persistent asthma, uncomplicated documented in this encounter Additional Health Concerns Assessment Noted Time PHQ-9 Depression Total Score: 9 05/22/20 22 12:49 PM EST documented as of this encounter Care Teams Backer Up Relationship Specialty Start Date End Date Isabel Lewis DO [address] [place] [address] PCP - General Family Medicine 06/03/18 Franki Walton, MisbahD [address] [place] [phone] Pharmacist Internal Medicine 09/13/22 02/21/23 Marti Elder PharmD [address] [place] [phone] Pharmacist Internal Medicine 02/22/23 Dimitris Arambula FNP [address] [place] [phone] Nurse Practitioner Family Medicine 04/24/23 documented as of this encounter
--- OUTSIDE RECORDS SUMMARY | 2024-07-06 13:31 | XMS_ITS | Encounter Summary ---
Author Organization [employer] Address [address] [place] [address] 7t [place] [address] Care Team Providers Care Bodybuilder Name Role Phone Isabel Lewis DO Primary Care Provider Franki Walton PharmD Unavailable Unavail able Puia Marti PharmD Unavailable [phone] Dimitris Arambula ALTERNATIVE DISPUTE RESOLUTION MEDIATOR Unavailable Unavailable Reason for Visit * Reason Comments Med Refill Encounter Details Date Type Department Care Team (Late st Contact Info) Description 07/05/2022 Refill [facility] MED [facility] PEDS [address] [place] [address] Isabel Lewis DO [address] [place] [address] Asthma, unspecified asthma severity, unspecified whether complicated, unspecified whether persistent (Primary Dx) Social History Tobacco Use Types Packs/Day Years [...] Description 07/23/2024 11:00 AM EST Medication Management [facility] MEDICINE [address] [place], [place] [phone] Puia, Marti, PharmD [address] [place] [phone] documented as of this encounter Visit Diagnoses Diagnosis Asthma, unspecified asthma severity, unspecified whether complicated, unspecified whether persistent- Primary documented in this encounter Additional Health Concerns Assessment Noted Time PHQ-9 Depression Total Score: 8 07/03/19 23 9:46 AM EST documented as of this encounter Care Teams Bodybuilder Relationship Specialty Start Date End Date Isabel Lewis DO [address] [place] [id number] PCP - General Family Medicine 06/03/18 Franki Walton PharmD [address] [place] [phone] Pharmacist Internal Medicine 09/13/22 02/21/23 Marti Elder PharmD [address] [place] [phone] Pharmacist Internal Medicine 02/22/23 Dimitris Arambula FNP [address] [place] [phone] Nurse Practitioner Family Medicine 04/24/23 documented as of this encounter
--- OUTSIDE RECORDS SUMMARY | 2024-07-06 13:31 | XMS_ITS | Encounter Summary ---
Author Organization [employer] Address [address] [facility] [address] [place] [address] Care Team Providers Care Filling Separator Name Role Phone Isabel Lewis DO Primary Care Provider + [phone] Marti Elder PharmD Unavailable [phone] Dimitris Arambula Unavailable Unavailable Reason for Visit * Reason Comments Med Refill Encounter Details Date Type Department Care Team (Late st Contact Info) Description 04/01/2023 Refill [facility] MEDICINE [address] [place] [address] Dimitris Arambula FNP Mood disorder (CMS/HCC) Social History Tobacco Use Types Packs/Day Years Used Date Smoking Tobacco: Every Day Cigarettes Passive Smoke Exposure: Current Smokeless Tobacco: Current Alcohol Use Standard Drinks/Week Comments Never 0 (1 standard drink = 0.6 oz pur e alcohol) Depression Answer Date Recorded Patient Health Questionnaire-9 Score 17 04/01/2023 Patient Health Questionnaire-9 Score 17 04/01/2023 Last PHQ-9: Questionnaire Data Not on file 1 Housing Stability Answer Date Recorded What is [...] Answer Date Recorded Patient Health Questionnaire-2 Score 6 04/01/2023 Comments Unknown Sex and Gender Information Value [...] Description 07/23/2024 11:00 AM EST Medication Management [facility] MEDICINE [address] [place] [address] Marti Elder PharmD [address] [place] [address] documented as of this encounter Goals Goal [...] Assessment Noted Time PHQ-9 Depression Total Score: 17 023 10:07 AM EDT documented as of this encounter Care Teams Filling Separator Relationship Specialty Start Date End Date Isabel Lewis DO [address] [place] [address] PCP - General Family Medicine 06/03/18 Marti Elder PharmD [address] [place], [place] [phone] Pharmacist Internal Medicine 02/22/23 Dimitris Arambula FNP [address] [place] [address] Nurse Practitioner Family Medicine 04/24/23 documented as of this encounter
--- OUTSIDE RECORDS SUMMARY | 2024-07-06 13:31 | XMS_ITS | Encounter Summary ---
Author Organization [employer] Address [address] [place] [address] [address] [place] [address] Care Team Providers Care Sealer Dry Cell Name Role Phone Isabel Lewis DO Primary Care Provider [phone] Franki Walton PharmD Unavailable Unavail able Marti Elder PharmD Unavailable [phone] Dimitris Arambula LINOLEUM LAYER HELPER Unavailable Unavailable Encounter Details Date Type Department Care Team (Late st Contact Info) Description 07/02/2022 Orders Only [facility] MEDICINE [address] [place], [place] [phone] Miriam Mcnamara LPN Social History Tobacco Use Types Packs/Day [...] 11:00 AM EST Medication Management [facility] MED[facility]INE [address] [place], [place] [phone] PuiaMollysa, PharmD [address] [place] [address] documented as of this encounter Visit Diagnoses Not on filedocumented in this encounter Additional Health Concerns Assessment Noted Time PHQ-9 Depression Total Score: 9 05/22/20 22 12:49 PM EST documented as of this encounter Care Teams Sealer Dry Cell Relationship Specialty Start Date End Date Isabel Lewis DO [address] [place] [address] PCP - General Family Medicine 06/03/18 Franki Walton, PharmD [address] [place] [address] Pharmacist Internal Medicine 09/13/22 02/21/23 Marti Elder PharmD [address] [place] [address] Pharmacist Internal Medicine 02/22/23 Dimitris Arambula FNP [address] [place] [address] Nurse Practitioner Family Medicine 04/24/23 documented as of this encounter
--- OUTSIDE RECORDS SUMMARY | 2024-07-06 13:31 | XMS_ITS | Encounter Summary ---
Author Organization [employer] Address [address] [facility] [address] [place] [address] Care Team Providers Care Clay Mixer Name Role Phone Isabel Lewis DO Primary Care Provider [phone] Marti Elder PharmD Unavailable [phone] Dimitris Arambula NETTING INSPECTOR Unavailable Unavailable Reason for Visit * Reason Comments Med Refill Encounter Details Date Type Department Care Team (Late st Contact Info) Description 04/06/2023 Refill [facility] MEDICINE [address] [place], [place] [phone] Leyda Chávez, ANP [address] [place], [place] [phone] Insomnia, unspecified type Social History Tobacco Use [...] Description 07/23/2024 11:00 AM EST Medication Management [facility] MEDICINE [address] [place] [address] Marti Elder PharmD [address] [place] [address] documented as of this encounter Goals Goal [...] documented as of this encounter Care Teams Clay Mixer Relationship Specialty Start Date End Date Isabel Lewis DO [address] [place] [id number] PCP - General Family Medicine 06/03/18 Marti Elder PharmD [address] [place] [phone] Pharmacist Internal Medicine 02/22/23 Dimitris Arambula FNP [address] [place] [address] Nurse Practitioner Family Medicine 04/24/23 documented as of this encounter
--- OUTSIDE RECORDS SUMMARY | 2024-07-06 13:31 | XMS_ITS | Encounter Summary ---
Author Organization [employer] Address [address] [facility] 7[address] [place] [address] Care Team Providers Care Carpenter Ship Name Role Phone Isabel Lewis DO Primary Care Provider [phone] Franki Walton PharmD Unavailable Unavail able Marti Elder PharmD Unavailable [phone] Dimitris Arambula HYDRAULIC LIFT OPERATOR Unavailable Unavailable Encounter Details Date Type Department Care Team (Late Contact Info) Description 08/09/2022 Orders Only [facility] [address] [place] [address] Isabel Baca LPN Social History Tobacco Use [...] suspected to have Coronavirus/COVID-19? No / Unsure 07/11/2022 10:18 AM EST documented as of this encounter Plan of Treatment Upcoming Encounters Date Type Department Care Team (Late Contact Info) Description 07/23/2024 11:00 AM EST Medication Management [facility] MEDICINE [address] [place] [address] Marti Elder PharmD [address] [place] [address] documented as of this encounter Visit Diagnoses Not on filedocumented in this encounter Additional Health Concerns Assessment Noted Time PHQ-9 Depression Total Score: 10 023 10:45 AM EST documented as of this encounter Care Teams Carpenter Ship Relationship Specialty Start Date End Date Isabel Lewis DO [address] [place] [address] PCP - General Family Medicine 06/03/18 Franki Walton, PharmD [address] [place] [phone] Pharmacist Internal Medicine 09/13/22 02/21/23 Marti Elder, Kwaku [address] [place] [address] Pharmacist Internal Medicine 02/22/23 Dimitris Arambula FNP [address] [place] [address] Nurse Practitioner Family Medicine 04/24/23 documented as of this encounter
--- OUTSIDE RECORDS SUMMARY | 2024-07-06 13:31 | XMS_ITS | Clinical Summary ---
Author Organization [facility] Address [address] [place] [address] Phone Care Team Providers Care Whipper Beater Name Role Phone Claudia Lewisfer Rosa Elena THOMAS Primary Care Provider [phone] Allergies Active Allergy Reactions Criticality Noted Date Comments Penicillins Swelling 06/22/2024 Sumatriptan Unknown 06/22/2024 Topiramate Unknown 06/22/2024 Medications Medication Sig Dispensed Refills Start Date End Date Status azithromycin (ZITHROMAX) 250 mg tablet Take 2 tablets (500 mg total) by mouth 1 (one) time each day for 1 day, THEN 1 tablet (250 mg total) 1 (one) time each day for 4 days. 6 each 06/22/2024 06/27/2024 predniSONE (DELTASONE) 10 mg tablet Take 4 tablets (40 mg total) by mouth 1 (one) time each day for 5 days. 20 each 06/22/2024 06/27/2024 Encounters Date Type Department Care Team Description 06/22/2024 9:25 AM EST - 06/22/2024 12:50 PM EST Emergency [facility] Emergency [address] [place] [address] Alirio Maurice MD Chest pain, unspecified type (Primary Dx); Precordial chest pain; Subcutaneous emphysema resulting from a procedure, sequela Discharge Disposition: Home or Self Care from Last 3 Months Social History Tobacco Use Types Packs/Day Years Used Date Smoking Tobacco: Never Assessed Sex and Gender Information Value Date Recorded Sex Assigned at Not on file Gender Identity Not on file Sexual Orientation Not on file Job Start Date Occupation Industry Not on file Not on file Not on file Last Filed Vital Signs Vital Sign Reading Time Taken Comments Blood Pressure 109/75 06/22/2024 9:34 AM EST Pulse 108 06/22/2024 9:34 AM EST Temperature 36.6 ??C (97.9 ??F) 06/22/2024 9:34 AM ES T Respiratory Rate 24 06/22/2024 9:34 AM EST Oxygen Saturation 98% 06/22/2024 9:34 AM EST Inhaled Oxygen Concentration - - Weight 78.9 kg (174 lb) 06/22/2024 9:34 AM EST Height 160 cm (5' 3 ) 06/22/2024 9:34 AM EST Body Mass Index 30.82 06/22/2024 9:34 AM EST Plan of Treatment Health Maintenance Due Date Last Done Comments Breast Cancer Screening 1970 Diabetes: Annual Foot Exam 02/02/1978 Diabetes: Annual Retina Eye Exam 02/02/1978 Hepatitis A Vaccines (1 of 2 - Risk 2-dose series) 02/02/1987 Hepatitis B Vaccines (1 of 3 - 19+ 3-dose series) 02/02/1987 Colorectal Cancer Screening: Colonoscopy 07/02/2023 Hepatitis C Screening 07/02/2023 Social Influencers of Health Screening 07/02/2023 DTaP,Tdap,and Td Vaccines (3 - Td or Tdap) 09/18/2023 09/17/2013, 09/11/1993 COVID-19 Vaccine ( season) 2024 07/11/2022, 01/29/2022, 11/03/2020, Additional history exists Diabetes: Annual Urine Albumin-Creatinine Ratio (uACR) 06/22/2024 Depression Screening 07/02/2024 07/02/2023 Diabetes: Blood Sugar Control Test (HGBA1C) 12/03/2024 06/05/2024 Diabetes: Annual GFR (Glomerular Filtration Rate) 06/22/2025 06/22/2024, 06/18/2024 Cervical Cancer Screening: Pap Smear 02/15/2026 02/15/2023 Cholesterol Screening (Lipid Panel) 10/11/2027 10/10/2022 HIV Screening Completed 01/18/2020 Zoster Vaccines Completed 03/08/2023, 10/10/2022 Influenza Vaccine Completed 02/28/2024, , 07/11/2022, Additional history exists Pneumococcal Vaccine: Pediatrics (0 to 5 Years) and At-Risk Patients (6 to 64 Years) Completed 02/28/2024, 10/22/2018, 07/17/2017, Additional history exists HIB Vaccines Aged Out No longer eligi ble based on patient's age to complete this topic HPV Vaccines Aged Out No longer eligi ble based on patient's age to complete this topic IPV Vaccines Aged Out No longer eligi ble based on patient's age to complete this topic MMR Vaccines Aged Out No longer eligi ble based on patient's age to complete this topic Meningococcal ACWY Vaccine Aged Out N o longer eligible based on patient's age to complete this topic RSV Immunization Patients Under 20 months Aged Out No longer eligible based on patient's age to complete this topic Varicella Vaccines Aged Out No longer eligible based on patient's age to complete this topic Procedures Procedure Name Priority Date/Time Associated Diagnosis Comments CT ANGIO CHEST WO AND/OR W CONTRAST STAT 06/22/2024 11:54 AM EST Chest pain, unspecified type D-DIMER STAT 06/22/2024 10:50 AM EST TROPONIN I HIGH SENSITIVITY STAT 06/22/2024 10:50 AM EST XR CHEST 2 VIEWS STAT 06/22/2024 10:2 4 AM EST ECG 12-LEAD STAT 06/22/2024 9:50 AM EST CBC WITH AUTO DIFFERENTIAL STAT 06/22/2024 9:48 AM EST TROPONIN I HIGH SENSITIVITY STAT 06/22/2024 9:48 AM EST MAGNESIUM STAT 06/22/2024 9:48 AM EST BASIC METABOLIC PANEL STAT 06/22/2024 9:48 AM EST CBC AND DIFFERENTIAL STAT 06/22/2024 9:48 AM EST RESPIRATORY VIRUS PANEL MOLECULAR STUDY STAT 06/22/2024 9:48 AM EST ECG ANNOTATED 06/22/2024 from Last 3 Months Results * CT Angio Chest wo and/or w Contrast (06/22/2024 11:54 AM EST) Anatomical Region Laterality Modality Body Computed Tomogra phy 06/22/2024 12:0 1 PM EST Impressions 06/22/2024 12:13 PM EST No pulmonary arterial emboli. Infectious/inflammatory bronchitis superimposed upon chronic interstitial lung disease within an NSIP pattern and mild emphysema. -------- FINAL REPORT -------- Dictated By: JOSEPHINE SMALL Dictated Date: 06/22/2024 12:01 ET Assigned Physician: JOSEPHINE SMALL Reviewed and Electronically Signed By: JOSEPHINE SMALL Signed Date: 06/22/2024 12:13 ET Workstation ID: [id number] Transcribed By: Self Edit Transcribed Date: 06/22/2024 12:01 ET Narrative 06/22/2024 12:13 PM EST PROCEDURE: Chest CTA INDICATION: Shortness of breath, pulmonary embolism TECHNIQUE: Chest CTA with intravenous administration of 90cc ISOVUE-370. Multi planar reformats were created and interpreted. The examination was performed utilizing dose reduction techniques.3-D or MIP images were produced with postprocessing on an independent computer workstation. ??Total DLP 349 COMPARISON: ??10/06/2019 FINDINGS: LUNGS/PLEURA: Central airways are patent. ??Diffuse bronchial wall thickening with regions of mucous plugging in the lower lobes. ??Mild emphysema superimposed upon basilar predominant subpleural reticulation, architectural distortion, traction bronchiectasis, and multifocal groundglass, similar compared to prior. ??Left upper lobe calcified granuloma measures 16 mm, unchanged. ??No new or suspicious pulmonary nodules. ??No pleural effusion or pneumothorax. MEDIASTINUM: No pulmonary arterial emboli. ??Thoracic aorta is normal in size. ??No dissection. ??No coronary artery calcifications. ??Exam was not tailored to evaluate the coronary arteries. ??Thyroid gland is normal. ??No mediastinal or hilar lymphadenopathy. ??Esophagus is normal. ??Cardiac chambers are normal in size. ??No pericardial effusion. CHEST WALL: No axillary lymphadenopathy or superficial hematoma. UPPER ABDOMEN:Cholecystectomy. BONES: Bones are normal for age. Procedure Note Josephine Small MD - 06/22/2024 PROCEDURE: Chest CTA INDICATION: Shortness of breath, pulmonary embolism TECHNIQUE: Chest CTA with intravenous administration of 90cc ISOVUE-370.Multi planar reformats were created and interpreted. The examination wasperformed utilizing dose reduction techniques.3-D or MIP images wereproduced with postprocessing on an independent computer workstation.Total DLP 349 COMPARISON: 10/06/2019 FINDINGS: LUNGS/PLEURA: Central airways are patent. Diffuse bronchial wallthickening with regions of mucous plugging in the lower lobes. Mildemphysema superimposed upon basilar predominant subpleural reticulation,architectural distortion, traction bronchiectasis, and multifocalgroundglass, similar compared to prior. Left upper lobe calcifiedgranuloma measures 16 mm, unchanged. No new or suspicious pulmonarynodules. No pleural effusion or pneumothorax. MEDIASTINUM: No pulmonary arterial emboli. Thoracic aorta is normal insize. No dissection. No coronary artery calcifications. Exam was nottailored to evaluate the coronary arteries. Thyroid gland is normal. Nomediastinal or hilar lymphadenopathy. Esophagus is normal. Cardiacchambers are normal in size. No pericardial effusion. CHEST WALL: No axillary lymphadenopathy or superficial hematoma. UPPER ABDOMEN:Cholecystectomy. BONES: Bones are normal for age. IMPRESSION: No pulmonary arterial emboli. Infectious/inflammatory bronchitis superimposed upon chronic interstitiallung disease within an NSIP pattern and mild emphysema. -------- FINAL REPORT -------- Dictated By: JOSEPHINE SMALL Dictated Date: 06/22/2024 12:01 ET Assigned Physician: JOSEPHINE SMALL Reviewed and Electronically Signed By: JOSEPHINE SMALL Signed Date: 06/22/2024 12:13 ET Workstation ID: [id number] Transcribed By: Self Edit Transcribed Date: 06/22/2024 12:01 ET Alirio Maurice MD IMG CT PROCEDURES * Troponin I high sensitivity (06/22/2024 10:50 AM EST) Only the most recent of2 resultswithin the time period is included. [facility] High Sensitivity Troponin I 14 <=54 ng/L LAB CHEMISTRY METHOD 06/22/2024 11:23 AM EST [facility] Blood Venous blood specimen / Unknown Venipuncture / Unknown 06/22/2024 10:50 AM EST 06/22/2024 10:55 AM EST [facility] - 06/22/2024 11:23 AM EST High levels of biotin in samples may falsely decrease hsTroponin values. ??Use caution when interpreting hsTroponin results in patients taking biotin who exhibit renal impairment (eGFR <60) or in patients taking more than 20 mg/day of biotin. Alirio Maurice MD LAB BLOOD ORDERAB LES Performing Organization Address [facility] Co de Phone Number [facility] [address] [place] [phone], * (ABNORMAL) D-dimer, quantitative (06/22/2024 10:50 AM EST) [facility] D-Dimer, Quant (D-DU) 741(H) <=230 ng/mL DDU LAB COAGULATION METHOD 06/22/2024 11:06 AM EST [facility] Blood Venous blood specimen / Unknown Venipuncture / Unknown 06/22/2024 10:50 AM EST 06/22/2024 10:56 AM EST [facility] - 06/22/2024 11:06 AM EST D-Dimer <230 ng/mL (D-Dimer units) is the threshold for exclusion of DVT/PE. D-Dimer may be elevated in: Critically ill, severely infected, trauma patients, DIC, acute CVA, acute [place], unstable angina, AF, old age, , and smoking. D-Dimer may be decreased with: Initiation of heparin therapy and oral anticoagulants. Alirio Maurice MD LAB BLOOD ORDERAB LES Performing Organization Address [facility]/ZIP Co de Phone Number [facility] [address] [place] [address], * XR Chest 2 Views (06/22/2024 10:24 AM EST) Anatomical Region Laterality Modality Body Radiographic Lisa ging 06/22/2024 10:2 7 AM EST Impressions 06/22/2024 10:36 AM EST Subtle opacities in the lower lungs, left greater than right, slightly more prominent than on the comparison chest radiograph. ??Previous chest CT studies in October 2019 and May 2014 demonstrate multifocal bilateral groundglass opacities. ??The progression today may represent progression of a chronic process seen on those previous CT studies, or could represent a superimposed acute inflammatory/infectious process. -------- FINAL REPORT -------- Dictated By: Taqueria Guan Dictated Date: 06/22/2024 10:27 ET Assigned Physician: Taqueria Guan Reviewed and Electronically Signed By: Taqueria Guan Signed Date: 06/22/2024 10:36 ET Workstation ID: [id number] Transcribed By: Self Edit Transcribed Date: 06/22/2024 10:28 ET Narrative 06/22/2024 10:36 AM EST PROCEDURE: PA and lateral radiographs of the chest. HISTORY: chest pain. COMPARISON: 12/14/2022. ??Chest CT 10/06/2019 and 05/15/2024. FINDINGS: Cardiomediastinal contours are within normal limits. ??There are subtle heterogeneous opacities in the lower lungs, more prominent on the left than the right. ??These are slightly more prominent than on the comparison radiographs. ??No pleural effusion, pulmonary edema, or pneumothorax. ??Unchanged cardiomediastinal contours. ??Cholecystectomy clips. Procedure Note Taqueria Guan MD - 06/22/2024 PROCEDURE: PA and lateral radiographs of the chest. HISTORY: chest pain. COMPARISON: 12/14/2022. Chest CT 10/06/2019 and 05/15/2024. FINDINGS: Cardiomediastinal contours are within normal limits. There are subtleheterogeneous opacities in the lower lungs, more prominent on the leftthan the right. These are slightly more prominent than on the comparisonradiographs. No pleural effusion, pulmonary edema, or pneumothorax.Unchanged cardiomediastinal contours. Cholecystectomy clips. IMPRESSION: Subtle opacities in the lower lungs, left greater than right, slightlymore prominent than on the comparison chest radiograph. Previous chest CTstudies in October 2019 and May 2014 demonstrate multifocal bilateralgroundglass opacities. The progression today may represent progression ofa chronic process seen on those previous CT studies, or could represent asuperimposed acute inflammatory/infectious process. -------- FINAL REPORT -------- Dictated By: Taqueria Guan Dictated Date: 06/22/2024 10:27 ET Assigned Physician: Taqueria Guan Reviewed and Electronically Signed By: Taqueria Guan Signed Date: 06/22/2024 10:36 ET Workstation ID: [id number] Transcribed By: Self Edit Transcribed Date: 06/22/2024 10:28 ET Alirio Maurice MD IMG XR PROCEDURES * ECG 12 lead (06/22/2024 9:50 AM EST) Ventricular Rate ECG 110 BPM GEMUSE Atrial Rate 110 BPM GEMUSE P-R Interval 130 ms GEMUSE QRS Duration 80 ms GEMUSE Q-T Interval 378 ms GEMUSE QTc 511 ms GEMUSE P Wave [place] 9 degrees GEMUSE R [place] 22 degrees GEMUSE T [place] 54 degrees GEMUSE ECG Interpretation Sinus tachycardia Nonspecific ST abnormality Prolongation of QT interval Abnormal ECG When compared with ECG of 06-OCT-2019 08:37, No significant change was found Confirmed by Lakshmi MCGHEE YUFENG ([id number]) on 06/22/2024 3:58:27 PM GEMUSE 06/22/2024 9:50 AM EST 06/22/2024 3:58 PM EST Alriio Maurice MD ECG ORDERABLES GEMUSE * Respiratory virus panel molecular study (06/22/2024 9:48 AM EST) Pathologist [facility] Adenovirus Detection by PCR Not Detected Not Detected LAB MICROBIOLOGY METHOD 06/22/2024 11:53 AM [facility] Influenza A PCR Not Detected Not Detected LAB MICROBIOLOGY METHOD 06/22/2024 11:53 AM [facility] Influenza B PCR Not Detected Not Detected LAB MICROBIOLOGY METHOD 06/22/2024 11:53 AM [facility] Coronavirus 229E Not Detected Not Detected LAB MICROBIOLOGY METHOD 06/22/2024 11:53 AM [facility] Coronavirus HKU1 Not Detected Not Detected LAB MICROBIOLOGY METHOD 06/22/2024 11:53 AM [facility] Coronavirus OC43 Not Detected Not Detected LAB MICROBIOLOGY METHOD 06/22/2024 11:53 AM [facility] Coronavirus NL63 Not Detected Not Detected LAB MICROBIOLOGY METHOD 06/22/2024 11:53 AM [facility] Parainfluenza Virus 1 Not Detected Not Detected LAB MICROBIOLOGY METHOD 06/22/2024 11:53 AM [facility] Parainfluenza Virus 2 Not Detected Not Detected LAB MICROBIOLOGY METHOD 06/22/2024 11:53 AM [facility] Parainfluenza Virus 3 Not Detected Not Detected LAB MICROBIOLOGY METHOD 06/22/2024 11:53 AM [facility] Parainfluenza Virus 4 Not Detected Not Detected LAB MICROBIOLOGY METHOD 06/22/2024 11:53 AM [facility] RSV PCR Not Detected Not Detected LAB MICROBIOLOGY METHOD 06/22/2024 11:53 AM [facility] Human Metapneumovirus A and B Not Detected Not Detected LAB MICROBIOLOGY METHOD 06/22/2024 11:53 AM [facility] Rhinovirus/Entero virus Not Detected Not Detected LAB MICROBIOLOGY METHOD 06/22/2024 11:53 AM [facility] Bordetella pertussis Not Detected Not Detected LAB MICROBIOLOGY METHOD 06/22/2024 11:53 AM EST [facility] Bordetella parapertussis Not Detected Not Detected LAB MICROBIOLOGY METHOD 06/22/2024 11:53 AM [facility] Mycoplasma pneumo by PCR Not Detected Not Detected LAB MICROBIOLOGY METHOD 06/22/2024 11:53 AM [facility] Chlamydia pneumoniae Not Detected Not Detected LAB MICROBIOLOGY METHOD 06/22/2024 11:53 AM [facility] SARS COV-2 Not Detected Not Detected LAB MICROBIOLOGY METHOD 06/22/2024 11:53 AM [facility] Swab Both anterior nares / Unknown Non-blood Collection / Unknown 06/22/2024 9:48 AM EST 06/22/2024 10:54 AM EST [facility] - 06/22/2024 11:53 AM EST Testing was performed using the [employer]! Respiratory Pathogen PCR Assay. All results must be correlated with the clinical findings. Results should not be used as the sole basis for diagnosis. False Negative results may occur from the presence of sequence variants in the region targeted by the assay or the presence of inhibitors. Results may be affected by concurrent antiviral/antimicrobial therapy or levels of organisms that are below the limit of detection. Cassandra Muñiz DO LAB MICROBIOLOGY - GENERAL ORDERABLES [facility] [address] [place] [address], * (ABNORMAL) CBC auto differential (06/22/2024 9:48 AM EST) WBC 8.8 4.8 - 10.8 K/mcL LAB HEMETOLOGY METHOD 06/22/2024 11:02 AM [facility] RBC 4.40 3.80 - 4.80 M/mcL LAB HEMETOLOGY METHOD 06/22/2024 11:02 AM [facility] Hemoglobin 11.7 11.5 - 16.0 g/dL LAB HEMETOLOGY METHOD 06/22/2024 11:02 AM [facility] Hematocrit 36.7 35.0 - 47.0 % LAB HEMETOLOGY METHOD 06/22/2024 11:02 AM [facility] MCV 83.6 79.0 - 98.0 FL LAB HEMETOLOGY METHOD 06/22/2024 11:02 AM [facility] MCH 26.7(L) 27.0 - 32.0 pcg LAB HEMETOLOGY METHOD 06/22/2024 11:02 AM [facility] MCHC 31.9(L) 32.0 - 37.0 g/dL LAB HEMETOLOGY METHOD 06/22/2024 11:02 AM [facility] RDW 16.6(H) 11.0 - 15.0 % LAB HEMETOLOGY METHOD 06/22/2024 11:02 AM [facility] Platelets 368 130 - 400 K/mcL LAB HEMETOLOGY METHOD 06/22/2024 11:02 AM [facility] MPV 10.0 7.0 - 11.0 FL LAB HEMETOLOGY METHOD 06/22/2024 11:02 AM [facility] NRBC 0.0 <1.0 % LAB HEMETOLOGY METHOD 06/22/2024 11:02 AM [facility] NRBC Absolute 0.00 <0.10 K/mcL LAB HEMETOLOGY METHOD 06/22/2024 11:02 AM [facility] Neutrophils Relative 81.6 % LAB HEMETOLOGY METHOD 06/22/2024 11:02 AM [facility] Lymphocytes Relative 10.3 % LAB HEMETOLOGY METHOD 06/22/2024 11:02 AM [facility] Monocytes Relative 6.2 % LAB HEMETOLOGY METHOD 06/22/2024 11:02 AM [facility] Eosinophils Relative 0.3 % LAB HEMETOLOGY METHOD 06/22/2024 11:02 AM EST [facility] Basophils Relative 1.1 % LAB HEMETOLOGY METHOD 06/22/2024 11:02 AM [facility] Immature Granulocytes Relative 0.5 % LAB HEMETOLOGY METHOD 06/22/2024 11:02 AM [facility] Neutrophils Absolute 7.17(H) 1.50 - 7.00 K/mcL LAB HEMETOLOGY METHOD 06/22/2024 11:02 AM [facility] Lymphocytes Absolute 0.90(L) 1.00 - 5.00 K/mcL LAB HEMETOLOGY METHOD 06/22/2024 11:02 AM [facility] Monocytes Absolute 0.54 0.20 - 1.00 K/mcL LAB HEMETOLOGY METHOD 06/22/2024 11:02 AM [facility] Eosinophils Absolute 0.03 0.00 - 0.50 K/mcL LAB HEMETOLOGY METHOD 06/22/2024 11:02 AM [facility] Basophils Absolute 0.10 0.00 - 0.20 K/mcL LAB HEMETOLOGY METHOD 06/22/2024 11:02 AM [facility] Immature Granulocytes Absolute 0.04(H) 0.00 - 0.03 K/mcL LAB HEMETOLOGY METHOD 06/22/2024 11:02 AM [facility] Blood Venous blood specimen / Unknown Venipuncture / Unknown 06/22/2024 9:48 AM EST 06/22/2024 10:55 AM EST Alirio Maurice MD LAB BLOOD ORDERAB LES [facility] [address] [place] [address], * (ABNORMAL) Magnesium (06/22/2024 9:48 AM EST) Magnesium 1.7(L) 1.9 - 2.6 mg/dL LAB CHEMISTRY METHOD 06/22/2024 11:19 AM [facility] Blood Venous blood specimen / Unknown Venipuncture / Unknown 06/22/2024 9:48 AM EST 06/22/2024 10:55 AM EST Alirio Maurice MD LAB BLOOD ORDERAB LES [facility] [address] [place] [address], * (ABNORMAL) Basic metabolic panel (06/22/2024 9:48 AM EST) Pathologist [facility] Sodium 135 133 - 145 mmol/L LAB CHEMISTRY METHOD 06/22/2024 11:19 AM [facility] Potassium 3.3(L) 3.5 - 5.5 mmol/L LAB CHEMISTRY METHOD 06/22/2024 11:19 AM [facility] Chloride 96 96 - 110 mmol/L LAB CHEMISTRY METHOD 06/22/2024 11:19 AM [facility] CO2 30 21 - 32 mmol/L LAB CHEMISTRY METHOD 06/22/2024 11:19 AM [facility] Anion Gap 9 3 - 11 LAB CHEMISTRY METHOD 06/22/2024 11:19 AM [facility] Glucose 217(H) 70 - 100 mg/dL LAB CHEMISTRY METHOD 06/22/2024 11:19 AM [facility] BUN 13 5 - 25 mg/dL LAB CHEMISTRY METHOD 06/22/2024 11:19 AM [facility] Creatinine 1.17(H) 0.50 - 1.10 mg/dL LAB CHEMISTRY METHOD 06/22/2024 11:19 AM [facility] eGFR 55(L) >=60 mL/min/1. 73m2 LAB CHEMISTRY METHOD 06/22/2024 11:19 AM EST [facility] Comment:Calculation based on the??Chronic Kidney Disease Epidemiology Collaboration (CKD-EPI) equation refit??without adjustment for race. BUN/Creatinine Ratio 11.1 LAB CHEMISTRY METHOD 06/22/2024 11:19 AM EST [facility] Calcium 8.9 8.5 - 10.5 mg/dL LAB CHEMISTRY METHOD 06/22/2024 11:19 AM EST [facility] Blood Venous blood specimen / Unknown Venipuncture / Unknown 06/22/2024 9:48 AM EST 06/22/2024 10:55 AM EST Alirio Maurice MD LAB BLOOD ORDERAB LES [facility] [address] [place] [address], * ECG-Annotated (06/22/2024) Provider Onbase ECG ORDERABLES from Last 3 Months Care Teams Whipper Beater Relationship Specialty Start Date End Date Isabel Lewis DO [address] [place] [address] PCP - General Family Medicine 06/22/24
--- OUTSIDE RECORDS SUMMARY | 2024-07-06 13:31 | XMS_ITS | Encounter Summary ---
Author Organization [employer] Address [address] [place] [address] [address] [place] [address] Care Team Providers Care Labor Relations Teacher Name Role Phone Isabel Lewis DO Primary Care Provider [phone] Franki Walton PharmD Unavailable Unavail able Marti Elder PharmD Unavailable [phone] Dimitris Arambula Unavailable Unavailable Reason for Visit * Reason Comments Med Refill Encounter Details Date Type Department Care Team (Late st Contact Info) Description 05/25/2022 Refill [facility] [address] [place], [place] [phone] Dimitris Arambula FNP Social History Tobacco Use Types Packs/Day Years [...] Description 07/23/2024 11:00 AM EST Medication Management [facility] [address] [place], [place] [phone] TaraiaMollysa, PharmD [address] [place] [address] documented as of this encounter Visit Diagnoses Not on filedocumented in this encounter Additional Health Concerns Assessment Noted Time PHQ-9 Depression Total Score: 9 05/22/20 22 12:49 PM EST documented as of this encounter Care Teams Labor Relations Teacher Relationship Specialty Start Date End Date Isabel Lewis DO [address] [place] [address] PCP - General Family Medicine 06/03/18 Franki Walton, PharmD [address] [place] [id number] Pharmacist Internal Medicine 09/13/22 02/21/23 Marti Elder PharmD [address] [place] [address] Pharmacist Internal Medicine 02/22/23 Dimitris Arambula FNP [address] [place] [address] Nurse Practitioner Family Medicine 04/24/23 documented as of this encounter
--- OUTSIDE RECORDS SUMMARY | 2024-07-06 13:31 | XMS_ITS | Encounter Summary ---
Author Organization [employer] Address [address] [facility] [address] [place] [address] Care Team Providers Care Health Care Facility Administrator Name Role Phone Isabel Lewis DO Primary Care Provider [phone] DelFranki tam PharmD Unavailable Unavail able Puia, Marti PharmD Unavailable [phone] Dimitris Arambula PAINTER PLATE Unavailable Unavailable Encounter Details Date Type Department Care Team (Late Contact Info) Description 07/10/2022 Orders Only [facility] [address] [place], [place] [phone] Isabel Baca LPN Social History Tobacco Use [...] 11:00 AM EST Medication Management [facility] MEDICINE [address] [place] [address] Puia, Marti, PharmD [address] [place] [address] documented as of this encounter Procedures Procedure Name Priority Date/Time Associated Diagnosis Comments CREATININE, SERUM Routine 07/10/2022 9:2 0 AM EST CBC WITH AUTO DIFFERENTIAL Routine 07/10/2022 9:20 AM EST ALT Routine 07/10/2022 9:20 AM EST AST Routine 07/10/2022 9:20 AM EST documented in this encounter Results * ALT (07/10/2022 9:20 AM EST) Alanine Aminotransferase 8 0 - 31 U/L [facility] 07/10/2022 9:20 AM EST 07/10/2022 9:22 AM EST [facility] External Provider LAB BLO OD ORDERABLES Final Result Performing Organization Address [facility]/ZIP Co de Phone Number [facility] [address] [place] [phone] * AST (07/10/2022 9:20 AM EST) Aspartate Amino Transferase 10 5 - 31 U/L [facility] 07/10/2022 9:20 AM EST 07/10/2022 9:22 AM EST [facility] External Provider LAB BLO OD ORDERABLES Final Result Performing Organization Address City/[facility]/ZIP Co de Phone Number [facility] [address] [place] [phone] * Creatinine, Serum (07/10/2022 9:20 AM EST) Creatinine, Serum 0.74 0.5 - 1.4 mg/dL [facility] Estimated Glomerular Filt Rate >60 [facility] Comment:NOTE: For -Am erican individuals, multiply the result by 1.210.Chronic Kidney Disease: Estimated GFR < 60 mL/min/1.45r7Hbkutm Kidney Disease: Estimated GFR < 15 mL/min/1.73m2 07/10/2022 9:20 AM EST 07/10/2022 9:22 AM EST [facility] External Provider LAB BLO OD ORDERABLES Final Result [facility] [address] [place] [phone] [phone] * (ABNORMAL) CBC auto differential (07/10/2022 9:20 AM EST) White Blood Count 10.9(H) 4.8 - 10.8 X10*3/uL [facility] Red Blood Count 4.65 4.20 - 5.50 X10*6/uL [facility] Hemoglobin 11.8(L) 12.0 - 16.0 g/dl [facility] Hematocrit 36.7(L) 37.0 - 47.0 % [facility] Mean Corpuscular Volume 78.9(L) 80.0 - 98.0 fL [facility] Mean Corpuscular Hemoglobin 25.4(L) 27.0 - 33.0 pg [facility] Mean Corpuscular HGB Conc 32.2 31.0 - 35.0 g/dl [facility] Red Cell Distribution Width 16.3(H) 11.0 - 16.0 % [facility] Platelet Count 401(H) 160 - 400 X10*3/uL [facility] Mean Platelet Volume 9.2(L) 9.4 - 12.3 fL [facility] Neutrophils Percent Auto 53.6 45 - 73 % [facility] Imm Gran Pct Auto 0.4 0.0 - 0.4 % [facility] Lymphocytes Percent Auto 39.3 20 - 40 % [facility] Monocytes Percent Auto 4.2 2 - 11 % [facility] Eosinophils Percent Auto 1.9 0 - 4 % [facility] Basophils Percent Auto 0.6 0 - 2 % [facility] NRBC Pct Auto 0.0 0.0 - 0.2 /100WBC [facility] Neutrophils Absolute Auto 5.9 2.0 - 8.3 x10*3/uL [facility] Imm Gran Abs Auto 0.04(H) 0.00 - 0.03 X10*3/uL [facility] Lymphocytes Absolute Auto 4.3 1.2 - 4.9 X10*3/uL [facility] Monocytes Absolute Auto 0.5 0.1 - 1.2 X10*3/uL [facility] Eosinophils Absolute Auto 0.2 0.0 - 0.4 X10*3/uL [facility] Basophils Absolute Auto 0.1 0.0 - 0.2 X10*3/uL [facility] NRBC Abs Auto 0.000 0.0 - 0.012 X10*3/uL [facility] 07/10/2022 9:20 AM EST 07/10/2022 9:22 AM EST us [facility] External Provider LAB BLO OD ORDERABLES Final Result Performing Organization Address City/State/[facility] Co de Phone Number [facility] [address] [place] [phone] documented in this encounter Visit Diagnoses Not on filedocumented in this encounter Additional Health Concerns Assessment Noted Time PHQ-9 Depression Total Score: 8 07/03/19 23 9:46 AM EST documented as of this encounter Care Teams Health Care Facility Administrator Relationship Specialty Start Date End Date Isabel Lewis DO [address] [place] [address] PCP - General Family Medicine 06/03/18 Franki Walton, Kwaku [address] [place] [address] Pharmacist Internal Medicine 09/13/22 02/21/23 Marti Elder PharmD [address] [place] [address] Pharmacist Internal Medicine 02/22/23 Dimitris Arambula FNP [address] [place] [address] Nurse Practitioner Family Medicine 04/24/23 documented as of this encounter
--- OUTSIDE RECORDS SUMMARY | 2024-07-06 13:32 | XMS_ITS | Encounter Summary ---
Author Organization [employer] Address [address] [facility] [address] [place] [address] Care Team Providers Care Consumer Loan Underwriter Name Role Phone Isabel Lewis DO Primary Care Provider [phone] Marti Elder PharmD Unavailable [phone] Dimitris Arambula PHOTOGRAPHS CURATOR Unavailable Unavailable Reason for Visit * Reason Comments Med Refill Encounter Details Date Type Department Care Team (Late st Contact Info) Description 04/02/2024 Refill [facility] MED[facility] [address] [place], [place] [phone] Isabel Lewis DO [address] [place], [place] [phone] Social History Tobacco Use Types Packs/Day Years [...] Description 07/23/2024 11:00 AM EST Medication Management [facility] [address] [place] [address] Marti Elder PharmD [address] [place] [address] documented as of this encounter Goals Goal [...] documented as of this encounter Care Teams Consumer Loan Underwriter Relationship Specialty Start Date End Date Isabel LewisDO [address] [place] [address] PCP - General Family Medicine 06/03/18 Marti Elder PharmD [address] [place] [phone] Pharmacist Internal Medicine 02/22/23 Dimitris Arambula FNP [address] [place] [phone] Nurse Practitioner Family Medicine 04/24/23 documented as of this encounter
--- OUTSIDE RECORDS SUMMARY | 2024-07-06 13:32 | XMS_ITS | Encounter Summary ---
Author Organization [employer] Address [address] [facility] [address] [place] [address] Care Team Providers Care Taxonomist Name Role Phone Isabel Lewis DO Primary Care Provider [phone] Marti Elder PharmD Unavailable [phone] Dimitris Arambula NURSING HOME MANAGER Unavailable Unavailable Reason for Visit * Reason Comments Elevated Bloof Sugar Encounter Details Date Type Department Care Team (Late st Contact Info) Description 07/06/2024 10:15 AM EST Office Visit [facility] MED[facility]INE [address] [place], [place] [phone] Radhika Shaw NP [address] [place], [place] [phone] Elevated blood sugar level (Primary Dx); Weakness; Other chest pain; Hypoxia Social History Tobacco Use Types Packs/Day Years [...] the past 12 months, has t he [employer], gas, oil or water [employer] threatened to shut off services in your home? No 10/30/2023 Depression Answer Date Recorded Patient Health Questionnaire-2 Score 2 07/02/2023 Comments Unknown Sex and Gender Information Value Date Recorded Sex Assigned at Female 04/02/2022 10:14 AM EDT Legal Sex Female 10:14 AM EDT Gender Identity Female 04/02/2022 10:14 AM EDT Sexual Orientation Straight 07/02/2024 11 :13 AM EST documented as of this encounter Last Filed Vital Signs Vital Sign Reading Time Taken Comments Blood Pressure 103/69 07/06/2024 10:11 AM EST Pulse 101 07/06/2024 10:11 AM EST Temperature 37.2 ??C (99 ??F) 07/06/2024 10:11 AM EST Respiratory Rate 25 07/06/2024 10:11 AM EST Oxygen Saturation 96% 07/06/2024 10:11 AM EST Inhaled Oxygen Concentration - - Weight - - Height 160 cm (5' 3 ) 07/06/2024 10:11 AM EST Body Mass Index - - documented in this encounter Plan of Treatment Upcoming Encounters Date Type Department Care Team (Late st Contact Info) Description 07/23/2024 11:00 AM EST Medication Management [facility] MEDICINE [address] [place] [address] Marti Elder PharmD [address] [place] [address] documented as of this encounter Goals Goal Patient Goal Type Associated Problems Recent Progress Patient-Stated? Author Patient will adhere to medication regimen General No Ab Burns, MisbahD Hemoglobin A1c < 7 Result Component 9.9( [...] Procedure Name Priority Date/Time Associated Diagnosis Comments ECG 12-LEAD Routine 07/06/2024 1:28 PM EST Other chest pain POCT GLUCOSE Routine 07/06/2024 10:01 AM EST Elevated blood sugar level documented in this encounter Results * ECG 12 lead (07/06/2024 1:28 PM EST) Narrative Radhika Shaw NP - 07/06/2024 1:28 PM EST SR EKG without change in morphology from previous us Radhika Shaw NP ECG ORDERABLES Final Result * (ABNORMAL) POCT Glucose (07/06/2024 10:01 AM EST) Pathologist [facility] Glucose Blood, POC 500(A) 60 - 200 mg/dL QC Media Lot # [id number] Lot# Expiration Date Blood Capillary blood specimen / Unknown 07/06/2024 10:01 AM EST us Radhika Shaw NP POINT OF CARE TEST ENTER/EDIT O RDERABLES Final Result documented in this encounter Visit Diagnoses Diagnosis Elevated blood sugar level- Primary Other abnormal glucose Weakness Other malaise and fatigue Other chest pain Hypoxia Hypoxemia documented in this encounter Additional Health Concerns Assessment Noted Time PHQ-9 Depression Total Score: 9 07/02/19 24 9:27 AM EST documented as of this encounter Care Teams Taxonomist Relationship Specialty Start Date End Date Isabel Lewis DO [address] [place] [address] PCP - General Family Medicine 06/03/18 Marti Elder PharmD [address] [place] [address] Pharmacist Internal Medicine 02/22/23 Dimitris Arambula FNP [address] [place] [address] Nurse Practitioner Family Medicine 04/24/23 documented as of this encounter
--- OUTSIDE RECORDS SUMMARY | 2024-07-06 13:32 | XMS_ITS | Encounter Summary ---
Author Organization [facility] Address [address] [place] [address] Care Team Providers Care Animal Husbandman Name Role Phone Isabel Lewis Primary Care Provider [phone] Reason for Visit * Reason Comments Weakness - Generalized Patient BIBRosa Elena from home with c/o weakness, dizziness, epigastric pain for 5 days. Patient c/o N/D, non productive cough. Denies vomiting. Encounter Details Date Type Department Care Team (Late st Contact Info) Description 06/22/2024 9:25 AM EST - 06/22/2024 12:50 PM EST Emergency [facility] Emergency [address] [place] [id number] Alirio Maurice MD [address] [place] [address] Chest pain, unspecified type (Primary Dx); Precordial chest pain; Subcutaneous emphysema resulting from a procedure, sequela Discharge Disposition: Home or Self Care Social History Tobacco Use Types Packs/Day Years Used Date Smoking Tobacco: Never Assessed Sex and Gender Information Value Date Recorded Sex Assigned at Not on file Gender Identity Not on file Sexual Orientation Not on file Job Start Date Occupation Industry Not on file Not on file Not on file documented as of this encounter Last Filed [...] Mass Index 30.82 06/22/2024 9:34 AM EST documented in this encounter Discharge Instructions * Discharge Instructions* Alirio Maurice MD - 06/22/2024 12:42 PM EST Chest pain, CAT scan of the chest reveals emphysema infectious to inflammatory bronchitis, I am starting you on a Z-Carlos and steroids, there is still workup has been reassuring, stay well-hydrated follow-up with PCP any other issues concerns come back to the ER documented in this encounter Medications at Time of Discharge Medication Sig Dispensed Refills Start Date End Date azithromycin (ZITHROMAX) 250 mg tablet Take 2 [...] for 5 days. 20 each 06/22/2024 06/27/2024 documented as of this encounter Ordered Prescriptions Prescription Sig Dispensed Refills Start Date End Da te predniSONE (DELTASONE) 10 mg tablet Take 4 tablets (40 mg total) by mouth 1 (one) time each day for 5 days. 20 each 06/22/2024 06/27/2024 azithromycin (ZITHROMAX) 250 mg tablet Take 2 tablets (500 mg total) by mouth 1 (one) time each day for 1 day, THEN 1 tablet (250 mg total) 1 (one) time each day for 4 days. 6 each 06/22/2024 06/27/2024 documented in this encounter Discharge Disposition Disposition Code Departure Means Destination Comment s Home or Self Care documented in this encounter Progress Notes * Lisa Posada RN - 06/22/2024 9:30 AM EST Patient BIBRosa Elena from home with c/o weakness, dizziness, epigastric pain for 5 days. Patient c/o N/D, non productive cough. Denies vomiting. * Alirio Maurice MD - 06/22/2024 9:19 AM EST Emergency Medicine Note Patient Name: Ramona Suarez Initial Evaluation: 06/22/2024 : 1970 Patient's PCP: Isabel Lewis DO Emergency Physician: Alirio Maurice MD History of Present Illness Chief Complaint: Chief Complaint Patient presents with Weakness - Generalized Patient KYARA from home with c/o weakness, dizziness, epigastric pain for 5 days. Patient c/o N/D, non productive cough. Denies vomiting. HPI: See MDM ROS: I have performed a ROS with the pertinent positives and negatives documented in the history ofpresent illness. Previous History No past medical history on file. No past surgical history on file. No family history on file. is allergic to penicillins, sumatriptan, and topamax [topiramate]. No current facility-administered medications on file prior to encounter. No current outpatient medications on file prior to encounter. Physical Exam ED Triage Vitals [06/22/24 0934] Temp Heart Rate Resp BP 36.6 ??C (97.9 ??F) 108 24 109/75 SpO2 Temp Source Heart Rate Source Patient Position 98 % Oral Monitor Sitting BP Location FiO2 (%) Right arm -- See MDM Results Labs Reviewed BASIC METABOLIC PANEL - Abnormal Result Value Sodium 135 Potassium 3.3 (*) Chloride 96 CO2 30 Anion Gap 9 Glucose 217 (*) BUN 13 Creatinine 1.17 (*) eGFR 55 (*) BUN/Creatinine Ratio 11.1 Calcium 8.9 MAGNESIUM - Abnormal Magnesium 1.7 (*) CBC WITH AUTO DIFFERENTIAL - Abnormal WBC 8.8 RBC 4.40 Hemoglobin 11.7 Hematocrit 36.7 MCV 83.6 MCH 26.7 (*) MCHC 31.9 (*) RDW 16.6 (*) Platelets 368 MPV 10.0 NRBC 0.0 NRBC Absolute 0.00 Neutrophils Relative 81.6 Lymphocytes Relative 10.3 Monocytes Relative 6.2 Eosinophils Relative 0.3 Basophils Relative 1.1 Immature Granulocytes Relative 0.5 Neutrophils Absolute 7.17 (*) Lymphocytes Absolute 0.90 (*) Monocytes Absolute 0.54 Eosinophils Absolute 0.03 Basophils Absolute 0.10 Immature Granulocytes Absolute 0.04 (*) D-DIMER - Abnormal D-Dimer, Quant (D-DU) 741 (*) Narrative: D-Dimer <230 ng/mL (D-Dimer units) is the threshold for exclusion of DVT/PE. D-Dimer may be elevated in: Critically ill, severely infected, trauma patients, DIC, acute CVA, acute ND, unstable angina, AF, old age, , and smoking. D-Dimer may be decreased with: Initiation of heparin therapy and oral anticoagulants. RESPIRATORY VIRUS PANEL MOLECULAR STUDY - Normal Adenovirus Detection by PCR Not Detected Influenza A PCR Not Detected Influenza B PCR Not Detected Coronavirus 229E Not Detected Coronavirus HKU1 Not Detected Coronavirus OC43 Not Detected Coronavirus NL63 Not Detected Parainfluenza Virus 1 Not Detected Parainfluenza Virus 2 Not Detected Parainfluenza Virus 3 Not Detected Parainfluenza Virus 4 Not Detected RSV PCR Not Detected Human Metapneumovirus A and B Not Detected Rhinovirus/Enterovirus Not Detected Bordetella pertussis Not Detected Bordetella parapertussis Not Detected Mycoplasma pneumo by PCR Not Detected Chlamydia pneumoniae Not Detected SARS COV-2 Not Detected Narrative: Testing was performed using the [employer] Respiratory Pathogen PCR Assay. All results must [...] that are below the limit of detection. TROPONIN I HIGH SENSITIVITY - Normal High Sensitivity Troponin I 13 Narrative: High levels of biotin in samples may falsely decrease hsTroponin values. Use caution when interpreting hsTroponin results in patients taking biotin who exhibit renal impairment (eGFR <60) or in patients taking more than 20 mg/day of biotin. TROPONIN I HIGH SENSITIVITY - Normal High Sensitivity Troponin I 14 Narrative: High levels of biotin in samples may falsely decrease hsTroponin values. Use caution when interpreting hsTroponin results in patients taking biotin who exhibit renal impairment (eGFR <60) or in patients taking more than 20 mg/day of biotin. CBC AND DIFFERENTIAL Narrative: The following orders were created for panel order CBC and differential. Procedure Abnormality Status --------- ------ CBC auto differential[[id number]] Abnormal Final result Please view results for these tests on the individual orders. POCT GLUCOSE, BLOOD Abnormal Labs Reviewed BASIC METABOLIC PANEL - Abnormal; Notable for the following components: Result Value Potassium 3.3 (*) Glucose 217 (*) Creatinine 1.17 (*) eGFR 55 (*) All other components within normal limits MAGNESIUM - Abnormal; Notable for the following components: Magnesium 1.7 (*) All other components within normal limits CBC WITH AUTO DIFFERENTIAL - Abnormal; Notable for the following components: MCH 26.7 (*) MCHC 31.9 (*) RDW 16.6 (*) Neutrophils Absolute 7.17 (*) Lymphocytes Absolute 0.90 (*) Immature Granulocytes Absolute 0.04 (*) All other components within normal limits D-DIMER - Abnormal; Notable for the following components: D-Dimer, Quant (D-DU) 741 (*) All other components within normal limits Narrative: D-Dimer <230 ng/mL (D-Dimer units) is the threshold for exclusion of DVT/PE. D-Dimer may be elevated in: Critically ill, severely infected, trauma patients, DIC, acute CVA, acute ND, unstable angina, AF, old age, , and smoking. D-Dimer may be decreased with: Initiation of heparin therapy and oral anticoagulants. CT Angio Chest wo and/or w Contrast Final Result No pulmonary arterial emboli. Infectious/inflammatory bronchitis superimposed upon chronic interstitial lung disease within an NSIP pattern and mild emphysema. -------- FINAL REPORT -------- Dictated By: STORM SMALL Dictated Date: 06/22/2024 12:01 ET Assigned Physician: STORM SMALL Reviewed and Electronically Signed By: STORM SMALL Signed Date: 06/22/2024 12:13 ET Workstation ID: [id number] Transcribed By: Self Edit Transcribed Date: 06/22/2024 12:01 ET XR Chest 2 Views Final Result Subtle opacities in the lower lungs, left greater than right, slightly more prominent than on the comparison chest radiograph. Previous chest CT studies in October 2019 and May 2014 demonstrate multifocal bilateral groundglass opacities. The progression today may represent progression of a chronicprocess seen on those previous CT studies, or could represent a superimposed acute inflammatory/infectious process. -------- FINAL REPORT -------- Dictated By: Taqueria Guan Dictated Date: 06/22/2024 10:27 ET Assigned Physician: Taqueria Guan Reviewed and Electronically Signed By: Taqueria Guan Signed Date: 06/22/2024 10:36 ET Workstation ID: [id number] Transcribed By: Self Edit Transcribed Date: 06/22/2024 10:28 ET I have discussed the incidental/abnormal imaging and/or lab abnormalities with the patient and haveinstructed them the need for further evaluation and workup with their primary care doctor. I have provided the patient with a paper copy of the abnormality. The laboratory results, imaging results and other diagnostic exam results were reviewed in the EMR. EKG Interpretation Critical Care Time None ? Medical Decision Making Medications sodium chloride 0.9 % flush 10 mL (10 mL intravenous Given 06/22/24 1151) iopamidoL (ISOVUE-370) 370 mg iodine /mL (76 %) injection 90 mL (90 mL intravenous Given 06/22/24 1151) ED Course as of 06/22/24 1243 Mon Jun 22, 2024 1037 54-year-old woman presenting with midsternal discomfort for the past 5 days she reports it started 1 she received infusions for rheumatoid arthritis at [facility] and did not agree with her, she also has viral-like symptoms, no hemoptysis, no fevers or chills reported [KV] 1037 Examination GENERAL: Well-Appearing patient appears of stated age CHEST: S1-S2 I did not appreciate any obvious murmurs PULMONARY: Moving air well, no wheezing, no stridor no rhonchi ABDOMINAL: Soft, nondistended nontender with positive bowel sounds. NEURO patient alert, conversational, no facial asymmetry noted, speaking in full sentences, good phonation, moving upper and lower extremities symmetrically. [KV] 1038 ACS, PE, pneumothorax, aortic dissection, Boerhaave syndrome Has tachycardia with recent infusion for red blood rheumatoid arthritis risk factor for PE will obtain D-dimer chest x-ray to evaluate for pneumothorax and pneumonia, this is not the severe chest pain radiating to the back despite oral dissection, ECG without any changes suspect underlying ACS, myocarditis viral symptoms another consideration cardiac enzymes will be obtained as well. [KV] 1102 Chest x-ray report reviewed, I looked at the images myself, headache. She has some chronic changes and this is concurred by radiology [KV] 1158 Patient and her son updated that I am obtaining CTA due to elevating elevated D-dimer [KV] 1236 IMPRESSION: No pulmonary arterial emboli. Infectious/inflammatory bronchitis superimposed upon chronic interstitial lung disease within an NSIP pattern and mild emphysema. [KV] 1241 CT findings, she continues to be a smoker we spoke about her CT findings and going to start onsteroids and azithromycin, encouraged quitting smoking [KV] ED Course User Index [KV] Alirio Maurice MD Clinical Impressions as of 06/22/24 1243 Chest pain, unspecified type Precordial chest pain Subcutaneous emphysema resulting from a procedure, sequela Procedures Diagnosis 1. Chest pain, unspecified type CT Angio Chest wo and/or w Contrast CT Angio Chest wo and/or w Contrast 2. Precordial chest pain 3. Subcutaneous emphysema resulting from a procedure, sequela Disposition Discharge ED Prescriptions Medication Sig Dispense Start Date End Date Auth. Provider azithromycin (ZITHROMAX) 250 mg tablet Take 2 tablets (500 mg total) by mouth 1 (one) time each dayfor 1 day, THEN 1 tablet (250 mg total) 1 (one) time each day for 4 days. 6 each 06/22/2024 06/27/2024 Alirio Maurice MD predniSONE (DELTASONE) 10 mg tablet Take 4 tablets (40 mg total) by mouth 1 (one) time each day for5 days. 20 each 06/22/2024 06/27/2024 Alirio Maurice MD Physician Attestation Emergency Medicine Note Patient Name: Ramona Suarez Initial Evaluation: 06/22/2024 : 1970 Patient's PCP: Isabel Lewis DO Emergency Physician: Alirio Maurice MD History of Present Illness Chief Complaint: Chief Complaint Patient presents with Weakness - Generalized Patient BIBA from home with c/o weakness, dizziness, epigastric pain for 5 days. Patient c/o N/D, non productive cough. Denies vomiting. HPI: See MDM ROS: I have performed a ROS with the pertinent positives and negatives documented in the history ofpresent illness. Previous History No past medical history on file. No past surgical history on file. No family history on file. is allergic to penicillins, sumatriptan, and topamax [topiramate]. No current facility-administered medications on file prior to encounter. No current outpatient medications on file prior to encounter. Physical Exam ED Triage Vitals [06/22/24 0934] Temp Heart Rate Resp BP 36.6 ??C (97.9 ??F) 108 24 109/75 SpO2 Temp Source Heart Rate Source Patient Position 98 % Oral Monitor Sitting BP Location FiO2 (%) Right arm -- See MDM Results Labs Reviewed BASIC METABOLIC PANEL - Abnormal Result Value Sodium 135 Potassium 3.3 (*) Chloride 96 CO2 30 Anion Gap 9 Glucose 217 (*) BUN 13 Creatinine 1.17 (*) eGFR 55 (*) BUN/Creatinine Ratio 11.1 Calcium 8.9 MAGNESIUM - Abnormal Magnesium 1.7 (*) CBC WITH AUTO DIFFERENTIAL - Abnormal WBC 8.8 RBC 4.40 Hemoglobin 11.7 Hematocrit 36.7 MCV 83.6 MCH 26.7 (*) MCHC 31.9 (*) RDW 16.6 (*) Platelets 368 MPV 10.0 NRBC 0.0 NRBC Absolute 0.00 Neutrophils Relative 81.6 Lymphocytes Relative 10.3 Monocytes Relative 6.2 Eosinophils Relative 0.3 Basophils Relative 1.1 Immature Granulocytes Relative 0.5 Neutrophils Absolute 7.17 (*) Lymphocytes Absolute 0.90 (*) Monocytes Absolute 0.54 Eosinophils Absolute 0.03 Basophils Absolute 0.10 Immature Granulocytes Absolute 0.04 (*) D-DIMER - Abnormal D-Dimer, Quant (D-DU) 741 (*) Narrative: D-Dimer <230 ng/mL (D-Dimer units) is the threshold for exclusion of DVT/PE. D-Dimer may be elevated in: Critically ill, severely infected, trauma patients, DIC, acute CVA, acute ND, unstable angina, AF, old age, , and smoking. D-Dimer may be decreased with: Initiation of heparin therapy and oral anticoagulants. RESPIRATORY VIRUS PANEL MOLECULAR STUDY - Normal Adenovirus Detection by PCR Not Detected Influenza A PCR Not Detected Influenza B PCR Not Detected Coronavirus 229E Not Detected Coronavirus HKU1 Not Detected Coronavirus OC43 Not Detected Coronavirus NL63 Not Detected Parainfluenza Virus 1 Not Detected Parainfluenza Virus 2 Not Detected Parainfluenza Virus 3 Not Detected Parainfluenza Virus 4 Not Detected RSV PCR Not Detected Human Metapneumovirus A and B Not Detected Rhinovirus/Enterovirus Not Detected Bordetella pertussis Not Detected Bordetella parapertussis Not Detected Mycoplasma pneumo by PCR Not Detected Chlamydia pneumoniae Not Detected SARS COV-2 Not Detected Narrative: Testing was performed using the [employer] Respiratory Pathogen PCR Assay. All results must [...] that are below the limit of detection. TROPONIN I HIGH SENSITIVITY - Normal High Sensitivity Troponin I 13 Narrative: High levels of biotin in samples may falsely decrease hsTroponin values. Use caution when interpreting hsTroponin results in patients taking biotin who exhibit renal impairment (eGFR <60) or in patients taking more than 20 mg/day of biotin. TROPONIN I HIGH SENSITIVITY - Normal High Sensitivity Troponin I 14 Narrative: High levels of biotin in samples may falsely decrease hsTroponin values. Use caution when interpreting hsTroponin results in patients taking biotin who exhibit renal impairment (eGFR <60) or in patients taking more than 20 mg/day of biotin. CBC AND DIFFERENTIAL Narrative: The following orders were created for panel order CBC and differential. Procedure Abnormality Status --------- ------ CBC auto differential[[id number]] Abnormal Final result Please view results for these tests on the individual orders. POCT GLUCOSE, BLOOD Abnormal Labs Reviewed BASIC METABOLIC PANEL - Abnormal; Notable for the following components: Result Value Potassium 3.3 (*) Glucose 217 (*) Creatinine 1.17 (*) eGFR 55 (*) All other components within normal limits MAGNESIUM - Abnormal; Notable for the following components: Magnesium 1.7 (*) All other components within normal limits CBC WITH AUTO DIFFERENTIAL - Abnormal; Notable for the following components: MCH 26.7 (*) MCHC 31.9 (*) RDW 16.6 (*) Neutrophils Absolute 7.17 (*) Lymphocytes Absolute 0.90 (*) Immature Granulocytes Absolute 0.04 (*) All other components within normal limits D-DIMER - Abnormal; Notable for the following components: D-Dimer, Quant (D-DU) 741 (*) All other components within normal limits Narrative: D-Dimer <230 ng/mL (D-Dimer units) is the threshold for exclusion of DVT/PE. D-Dimer may be elevated in: Critically ill, severely infected, trauma patients, DIC, acute CVA, acute ND, unstable angina, AF, old age, , and smoking. D-Dimer may be decreased with: Initiation of heparin therapy and oral anticoagulants. CT Angio Chest wo and/or w Contrast Final Result No pulmonary arterial emboli. Infectious/inflammatory bronchitis superimposed upon chronic interstitial lung disease within an NSIP pattern and mild emphysema. -------- FINAL REPORT -------- Dictated By: STORM SMALL Dictated Date: 06/22/2024 12:01 ET Assigned Physician: STORM SMALL Reviewed and Electronically Signed By: STORM SMALL Signed Date: 06/22/2024 12:13 ET Workstation ID: [id number] Transcribed By: Self Edit Transcribed Date: 06/22/2024 12:01 ET XR Chest 2 Views Final Result Subtle opacities in the lower lungs, left greater than right, slightly more prominent than on the comparison chest radiograph. Previous chest CT studies in October 2019 and May 2014 demonstrate multifocal bilateral groundglass opacities. The progression today may represent progression of a chronicprocess seen on those previous CT studies, or could represent a superimposed acute inflammatory/infectious process. -------- FINAL REPORT -------- Dictated By: Taqueria Guan Dictated Date: 06/22/2024 10:27 ET Assigned Physician: Taqueria Guan Reviewed and Electronically Signed By: Taqueria Guan Signed Date: 06/22/2024 10:36 ET Workstation ID: [id number] Transcribed By: Self Edit Transcribed Date: 06/22/2024 10:28 ET I have discussed the incidental/abnormal imaging and/or lab abnormalities with the patient and haveinstructed them the need for further evaluation and workup with their primary care doctor. I have provided the patient with a paper copy of the abnormality. The laboratory results, imaging results and other diagnostic exam results were reviewed in the EMR. EKG Interpretation Critical Care Time None ? Medical Decision Making Medications sodium chloride 0.9 % flush 10 mL (10 mL intravenous Given 06/22/24 1151) iopamidoL (ISOVUE-370) 370 mg iodine /mL (76 %) injection 90 mL (90 mL intravenous Given 06/22/24 1151) ED Course as of 06/22/24 1243 SatJun 22, 2024 1037 54-year-old woman presenting with midsternal discomfort for the past 5 days she reports it started 1 she received infusions for rheumatoid arthritis at [facility] and did not agree with her, she also has viral-like symptoms, no hemoptysis, no fevers or chills reported [KV] 1037 Examination GENERAL: Well-Appearing patient appears of stated age CHEST: S1-S2 I did not appreciate any obvious murmurs PULMONARY: Moving air well, no wheezing, no stridor no rhonchi ABDOMINAL: Soft, nondistended nontender with positive bowel sounds. NEURO patient alert, conversational, no facial asymmetry noted, speaking in full sentences, good phonation, moving upper and lower extremities symmetrically. [KV] 1038 ACS, PE, pneumothorax, aortic dissection, Boerhaave syndrome Has tachycardia with recent infusion for red blood rheumatoid arthritis risk factor for PE will obtain D-dimer chest x-ray to evaluate for pneumothorax and pneumonia, this is not the severe chest pain radiating to the back despite oral dissection, ECG without any changes suspect underlying ACS, myocarditis viral symptoms another consideration cardiac enzymes will be obtained as well. [KV] 1102 Chest x-ray report reviewed, I looked at the images myself, headache. She has some chronic changes and this is concurred by radiology [KV] 1158 Patient and her son updated that I am obtaining CTA due to elevating elevated D-dimer [KV] 1236 IMPRESSION: No pulmonary arterial emboli. Infectious/inflammatory bronchitis superimposed upon chronic interstitial lung disease within an NSIP pattern and mild emphysema. [KV] 1241 CT findings, she continues to be a smoker we spoke about her CT findings and going to start onsteroids and azithromycin, encouraged quitting smoking [KV] ED Course User Index [KV] Alirio Maurice MD Clinical Impressions as of 06/22/24 1243 Chest pain, unspecified type Precordial chest pain Subcutaneous emphysema resulting from a procedure, sequela Procedures Diagnosis 1. Chest pain, unspecified type CT Angio Chest wo and/or w Contrast CT Angio Chest wo and/or w Contrast 2. Precordial chest pain 3. Subcutaneous emphysema resulting from a procedure, sequela Disposition Discharge ED Prescriptions Medication Sig Dispense Start Date End Date Auth. Provider azithromycin (ZITHROMAX) 250 mg tablet Take 2 tablets (500 mg total) by mouth 1 (one) time each dayfor 1 day, THEN 1 tablet (250 mg total) 1 (one) time each day for 4 days. 6 each 06/22/2024 06/27/2024 Alirio Maurice MD predniSONE (DELTASONE) 10 mg tablet Take 4 tablets (40 mg total) by mouth 1 (one) time each day for5 days. 20 each 06/22/2024 06/27/2024 Alirio Maurice MD Physician Attestation Alirio Maurice MD 06/22/24 1039 Alirio Maurice MD 06/22/24 1039 Alirio Maurice MD 06/22/24 1336 Alirio Maurice MD 06/25/24 0714 documented in this encounter Plan of Treatment Not on file documented as of this encounter Procedures Procedure Name Priority Date/Time Associated Diagnosis Comments CT ANGIO CHEST WO AND/OR W CONTRAST STAT 06/22/2024 11:54 AM EST Chest pain, unspecified type TROPONIN I HIGH SENSITIVITY STAT 06/22/2024 10:50 AM EST D-DIMER STAT 06/22/2024 10:50 AM EST XR CHEST 2 VIEWS STAT 06/22/2024 10:2 4 AM EST ECG 12-LEAD STAT 06/22/2024 9:50 AM EST RESPIRATORY VIRUS PANEL MOLECULAR STUDY STAT 06/22/2024 9:48 AM EST TROPONIN I HIGH SENSITIVITY STAT 06/22/2024 9:48 AM EST CBC WITH AUTO DIFFERENTIAL STAT 06/22/2024 9:48 AM EST CBC AND DIFFERENTIAL STAT 06/22/2024 9:48 AM EST MAGNESIUM STAT 06/22/2024 9:48 AM EST BASIC METABOLIC PANEL STAT 06/22/2024 9:48 AM EST ECG ANNOTATED 06/22/2024 documented in this encounter Results * CT Angio Chest wo and/or w Contrast (06/22/2024 11:54 AM EST) Anatomical Region Laterality Modality Body Computed Tomogra phy 06/22/2024 12:0 1 PM EST Impressions 06/22/2024 12:13 PM EST No pulmonary arterial emboli. Infectious/inflammatory bronchitis superimposed upon chronic interstitial lung disease within an NSIP pattern and mild emphysema. -------- FINAL REPORT -------- Dictated By: STORM SMALL Dictated Date: 06/22/2024 12:01 ET Assigned Physician: STORM SMALL Reviewed and Electronically Signed By: STORM SMALL Signed Date: 06/22/2024 12:13 ET Workstation ID: [id number] Transcribed By: Self Edit Transcribed Date: 06/22/2024 [...] Bones are normal for age. Procedure Note Storm Small MD - 06/22/2024 PROCEDURE: Chest CTA [...] emphysema. -------- FINAL REPORT -------- Dictated By: STORM SMALL Dictated Date: 06/22/2024 12:01 ET Assigned Physician: STORM SMALL Reviewed and Electronically Signed By: STORM SMALL Signed Date: 06/22/2024 12:13 ET Workstation ID: [id number] Transcribed By: Self Edit Transcribed Date: 06/22/2024 12:01 ET Alirio Maurice MD IMG CT PROCEDURES * (ABNORMAL) D-dimer, quantitative (06/22/2024 10:50 AM EST) Pathologist [facility] D-Dimer, Quant (D-DU) 741(H) <=230 ng/mL DDU LAB COAGULATION METHOD 06/22/2024 11:06 AM EST [facility] Blood Venous blood specimen / Unknown Venipuncture / Unknown 06/22/2024 10:50 AM EST 06/22/2024 10:56 AM EST Narrative [facility] - 06/22/2024 11:06 AM EST D-Dimer <230 ng/mL (D-Dimer units) is the threshold for exclusion of DVT/PE. D-Dimer may be elevated in: Critically ill, severely infected, trauma patients, DIC, acute CVA, acute ND, unstable angina, AF, old age, , and smoking. D-Dimer may be decreased with: Initiation of heparin therapy and oral anticoagulants. Alirio Maurice MD LAB BLOOD ORDERAB LES [facility] [address] [place] [address], * Troponin I high sensitivity (06/22/2024 10:50 AM EST) [facility] High Sensitivity Troponin I 14 <=54 ng/L LAB CHEMISTRY METHOD 06/22/2024 11:23 AM EST [facility] Blood Venous blood specimen / Unknown Venipuncture / Unknown 06/22/2024 10:50 AM EST 06/22/2024 10:55 AM EST [facility] - 06/22/2024 11:23 AM EST High levels of biotin in samples may falsely decrease hsTroponin values. ??Use caution when interpreting hsTroponin results in patients taking biotin who exhibit renal impairment (eGFR <60) or in patients taking more than 20 mg/day of biotin. Alirio Maurice MD LAB BLOOD ORDERAB LES [facility] ([facility]) [facility] [address] [place] [address], * XR Chest 2 Views (06/22/2024 10:24 [...] Signed Date: 06/22/2024 10:36 ET Workstation ID: [id number] Transcribed By: Self Edit Transcribed Date: 06/22/2024 [...] Signed Date: 06/22/2024 10:36 ET Workstation ID: [id number] Transcribed By: Self Edit Transcribed Date: 06/22/2024 10:28 ET Alirio Maurice MD IMG XR PROCEDURES * ECG 12 lead (06/22/2024 9:50 AM EST) Ventricular Rate ECG 110 BPM GEMUSE Atrial Rate 110 BPM GEMUSE P-R Interval 130 ms GEMUSE QRS Duration 80 ms GEMUSE Q-T Interval 378 ms GEMUSE QTc 511 ms GEMUSE P Wave [place] 9 degrees GEMUSE R [place] 22 degrees GEMUSE T [place] 54 degrees GEMUSE ECG Interpretation Sinus tachycardia Nonspecific ST abnormality Prolongation of QT interval Abnormal ECG When compared with ECG of 06-OCT-2019 08:37, No significant change was found Confirmed by Lakshmi MCGHEE YUFENG ([id number]) on 06/22/2024 3:58:27 PM GEMUSE 06/22/2024 9:50 AM EST 06/22/2024 3:58 PM EST Alirio Maurice MD ECG ORDERABLES GEMUSE * Respiratory virus panel molecular study (06/22/2024 9:48 AM EST) Adenovirus Detection by PCR Not Detected Not Detected LAB MICROBIOLOGY METHOD 06/22/2024 11:53 AM [facility] Influenza A PCR Not Detected Not Detected LAB MICROBIOLOGY METHOD 06/22/2024 11:53 AM [facility] Influenza B PCR Not Detected Not Detected LAB MICROBIOLOGY METHOD 06/22/2024 11:53 AM [facility] Coronavirus 229E Not Detected Not Detected LAB MICROBIOLOGY METHOD 06/22/2024 11:53 AM [facility] Coronavirus HKU1 Not Detected Not Detected LAB MICROBIOLOGY METHOD 06/22/2024 11:53 AM [facility] Coronavirus OC43 Not Detected Not Detected LAB MICROBIOLOGY METHOD 06/22/2024 11:53 AM [facility] Coronavirus NL63 Not Detected Not Detected LAB MICROBIOLOGY METHOD 06/22/2024 11:53 AM [facility] Parainfluenza Virus 1 Not Detected Not Detected LAB MICROBIOLOGY METHOD 06/22/2024 11:53 AM [facility] Parainfluenza Virus 2 Not Detected Not Detected LAB MICROBIOLOGY METHOD 06/22/2024 11:53 AM [facility] Parainfluenza Virus 3 Not Detected Not Detected LAB MICROBIOLOGY METHOD 06/22/2024 11:53 AM [facility] Parainfluenza Virus 4 Not Detected Not Detected LAB MICROBIOLOGY METHOD 06/22/2024 11:53 AM EST [facility] RSV PCR Not Detected Not Detected LAB MICROBIOLOGY METHOD 06/22/2024 11:53 AM [facility] Human Metapneumovirus A and B Not Detected Not Detected LAB MICROBIOLOGY METHOD 06/22/2024 11:53 AM [facility] Rhinovirus/Entero virus Not Detected Not Detected LAB MICROBIOLOGY METHOD 06/22/2024 11:53 AM [facility] Bordetella pertussis Not Detected Not Detected LAB MICROBIOLOGY METHOD 06/22/2024 11:53 AM [facility] Bordetella parapertussis Not Detected Not Detected LAB MICROBIOLOGY METHOD 06/22/2024 11:53 AM [facility] Mycoplasma pneumo by PCR Not Detected Not Detected LAB MICROBIOLOGY METHOD 06/22/2024 11:53 AM [facility] Chlamydia pneumoniae Not Detected Not Detected LAB MICROBIOLOGY METHOD 06/22/2024 11:53 AM [facility] SARS COV-2 Not Detected Not Detected LAB MICROBIOLOGY METHOD 06/22/2024 11:53 AM [facility] Swab Both anterior nares / Unknown Non-blood Collection / Unknown 06/22/2024 9:48 AM EST 06/22/2024 10:54 AM EST [facility] - 06/22/2024 11:53 AM EST Testing was performed using the [employer] Respiratory Pathogen PCR Assay. All results must [...] Muñiz DO LAB MICROBIOLOGY - GENERAL ORDERABLES [facility] [address] [place] [address], * (ABNORMAL) CBC auto differential (06/22/2024 9:48 AM EST) [facility] WBC 8.8 4.8 - 10.8 K/mcL LAB HEMETOLOGY METHOD 06/22/2024 11:02 AM [facility] RBC 4.40 3.80 - 4.80 M/mcL LAB HEMETOLOGY METHOD 06/22/2024 11:02 AM [facility] Hemoglobin 11.7 11.5 - 16.0 g/dL LAB HEMETOLOGY METHOD 06/22/2024 11:02 AM [facility] Hematocrit 36.7 35.0 - 47.0 % LAB HEMETOLOGY METHOD 06/22/2024 11:02 AM [facility] MCV 83.6 79.0 - 98.0 FL LAB HEMETOLOGY METHOD 06/22/2024 11:02 AM [facility] MCH 26.7(L) 27.0 - 32.0 pcg LAB HEMETOLOGY METHOD 06/22/2024 11:02 AM [facility] MCHC 31.9(L) 32.0 - 37.0 g/dL LAB HEMETOLOGY METHOD 06/22/2024 11:02 AM [facility] RDW 16.6(H) 11.0 - 15.0 % LAB HEMETOLOGY METHOD 06/22/2024 11:02 AM [facility] Platelets 368 130 - 400 K/mcL LAB HEMETOLOGY METHOD 06/22/2024 11:02 AM [facility] MPV 10.0 7.0 - 11.0 FL LAB HEMETOLOGY METHOD 06/22/2024 11:02 AM [facility] NRBC 0.0 <1.0 % LAB HEMETOLOGY METHOD 06/22/2024 11:02 AM [facility] NRBC Absolute 0.00 <0.10 K/mcL LAB HEMETOLOGY METHOD 06/22/2024 11:02 AM [facility] Neutrophils Relative 81.6 % LAB HEMETOLOGY METHOD 06/22/2024 11:02 AM [facility] Lymphocytes Relative 10.3 % LAB HEMETOLOGY METHOD 06/22/2024 11:02 AM [facility] Monocytes Relative 6.2 % LAB HEMETOLOGY METHOD 06/22/2024 11:02 AM [facility] Eosinophils Relative 0.3 % LAB HEMETOLOGY METHOD 06/22/2024 11:02 AM [facility] Basophils Relative 1.1 % LAB HEMETOLOGY METHOD 06/22/2024 11:02 AM [facility] Immature Granulocytes Relative 0.5 % LAB HEMETOLOGY METHOD 06/22/2024 11:02 AM [facility] Neutrophils Absolute 7.17(H) 1.50 - 7.00 K/mcL LAB HEMETOLOGY METHOD 06/22/2024 11:02 AM [facility] Lymphocytes Absolute 0.90(L) 1.00 - 5.00 K/mcL LAB HEMETOLOGY METHOD 06/22/2024 11:02 AM [facility] Monocytes Absolute 0.54 0.20 - 1.00 K/mcL LAB HEMETOLOGY METHOD 06/22/2024 11:02 AM [facility] Eosinophils Absolute 0.03 0.00 - 0.50 K/mcL LAB HEMETOLOGY METHOD 06/22/2024 11:02 AM [facility] Basophils Absolute 0.10 0.00 - 0.20 K/mcL LAB HEMETOLOGY METHOD 06/22/2024 11:02 AM [facility] Immature Granulocytes Absolute 0.04(H) 0.00 - 0.03 K/mcL LAB HEMETOLOGY METHOD 06/22/2024 11:02 AM [facility] Blood Venous blood specimen / Unknown Venipuncture / Unknown 06/22/2024 9:48 AM EST 06/22/2024 10:55 AM EST Alirio Maurice MD LAB BLOOD ORDERAB LES Performing Organization Address [facility] de Phone Number [facility] [address] [place] [address], * Troponin I high sensitivity (06/22/2024 9:48 AM EST) High Sensitivity Troponin I 13 <=54 ng/L LAB CHEMISTRY METHOD 06/22/2024 11:23 AM EST [facility] Blood Venous blood specimen / Unknown Venipuncture / Unknown 06/22/2024 9:48 AM EST 06/22/2024 10:55 AM EST Narrative [facility] - 06/22/2024 11:23 AM EST High levels of biotin in samples may falsely decrease hsTroponin values. ??Use caution when interpreting hsTroponin results in patients taking biotin who exhibit renal impairment (eGFR <60) or in patients taking more than 20 mg/day of biotin. Alirio Maurice MD LAB BLOOD ORDERAB LES Performing Organization Address [facility] Co de Phone Number [facility] [address] [place] [address], * (ABNORMAL) Magnesium (06/22/2024 9:48 AM EST) Magnesium 1.7(L) 1.9 - 2.6 mg/dL LAB CHEMISTRY METHOD 06/22/2024 11:19 AM EST [facility] Blood Venous blood specimen / Unknown Venipuncture / Unknown 06/22/2024 9:48 AM EST 06/22/2024 10:55 AM EST Alirio Maurice MD LAB BLOOD ORDERAB LES [facility] [address] [place] [address], * (ABNORMAL) Basic metabolic panel (06/22/2024 9:48 AM EST) Sodium 135 133 - 145 mmol/L LAB CHEMISTRY METHOD 06/22/2024 11:19 AM [facility] Potassium 3.3(L) 3.5 - 5.5 mmol/L LAB CHEMISTRY METHOD 06/22/2024 11:19 AM [facility] Chloride 96 96 - 110 mmol/L LAB CHEMISTRY METHOD 06/22/2024 11:19 AM [facility] CO2 30 21 - 32 mmol/L LAB CHEMISTRY METHOD 06/22/2024 11:19 AM [facility] Anion Gap 9 3 - 11 LAB CHEMISTRY METHOD 06/22/2024 11:19 AM [facility] Glucose 217(H) 70 - 100 mg/dL LAB CHEMISTRY METHOD 06/22/2024 11:19 AM [facility] BUN 13 5 - 25 mg/dL LAB CHEMISTRY METHOD 06/22/2024 11:19 AM [facility] Creatinine 1.17(H) 0.50 - 1.10 mg/dL LAB CHEMISTRY METHOD 06/22/2024 11:19 AM [facility] eGFR 55(L) >=60 mL/min/1. 73m2 LAB CHEMISTRY METHOD 06/22/2024 11:19 AM [facility] Comment:Calculation based on the??Chronic Kidney Disease Epidemiology Collaboration (CKD-EPI) equation refit??without adjustment for race. BUN/Creatinine Ratio 11.1 LAB CHEMISTRY METHOD 06/22/2024 11:19 AM [facility] Calcium 8.9 8.5 - 10.5 mg/dL LAB CHEMISTRY METHOD 06/22/2024 11:19 AM EST [facility] Blood Venous blood specimen / Unknown Venipuncture / Unknown 06/22/2024 9:48 AM EST 06/22/2024 10:55 AM EST Alirio Maurice MD LAB BLOOD ORDERAB LES [facility] [address] [place] [address], * ECG-Annotated (06/22/2024) Provider Onbase MD ECG ORDERABLES documented in this encounter Visit Diagnoses Diagnosis Chest pain, unspecified type- Primary Precordial chest pain Precordial pain Subcutaneous emphysema resulting from a procedure, sequela documented in this encounter Administered Medications Inactive Administered Medications - up to 3 most recent administrations Medication Order MAR Action Action Date Dose Rate Site iopamidoL (ISOVUE-370) 370 mg iodine /mL (76 %) injection 90 mL 90 mL, intravenous, Once in imaging, Starting on Sat06/22/24 at 1150, For 1 dose Given 06/22/2024 11:51 AM EST 90 mL sodium chloride 0.9 % flush 10 mL 10 mL, intravenous, Once, On Sat06/22/24 at 1151, For 1 dose Given 06/22/2024 11:51 AM EST 10 mL documented in this encounter Active and Recently Administered Medications Times are shown in EST. Scheduled Medication Order 06/20/2024 06/21/2024 06/22/2024 iopamidoL (ISOVUE-370) 370 mg iodine /mL (76 %) injection 90 mL (COMPLETED) 90 mL, intravenous, Once in imaging, Starting on Sat06/22/24 at 1150, For 1 dose 1151 (Given - Provid er: Una R [place]) sodium chloride 0.9 % flush 10 mL (COMPLETED) 10 mL, intravenous, Once, On Sat06/22/24 at 1151, For 1 dose 1151 (Given - Provid er: Una R [place]) documented in this encounter Additional Health Concerns Infection Onset Date Last Indicated Resolved Time Respiratory Rule-Out 06/22/2024 06/22/2024 025 11:53 AM EST COVID-19 Rule-Out 06/22/2024 06/22/2024 06/22/2024 11:53 AM EST documented as of this encounter Care Teams Animal Husbandman Relationship Specialty Start Date End Date Isabel Lewis DO [address] [place], [place] PCP - General Family Medicine 06/22/24 documented as of this encounter
--- OUTSIDE RECORDS SUMMARY | 2024-07-06 13:32 | XMS_ITS | Encounter Summary ---
Author Organization [employer] Address [address] [facility] [address] [place] [address] Care Team Providers Care Yarding Engineer Name Role Phone Isabel Lewis DO Primary Care Provider [phone] Marti Elder PharmD Unavailable Dimitris Arambula REHAB NURSING TECH Unavailable Unavailable Encounter Details Date Type Department Care Team (Late st Contact Info) Description 07/02/2024 11:15 AM EST Office Visit [facility] [address] [place], [place] [phone] Karlene Liang MD [address] [place], [place] [phone] Interstitial lung disease (CMS/HCC) (Primary Dx); Seen in emergency department; Weakness; Rheumatoid arthritis, involving unspecified site, unspecified whether rheumatoid factor present (CMS/HCC) Social History Tobacco Use Types Packs/Day [...] Sign Reading Time Taken Comments Blood Pressure 103/74 07/02/2024 11:09 AM EST Pulse 113 07/02/2024 11:09 AM EST Temperature 34.8 ??C (94.6 ??F) 07/02/2024 11:[address] Respiratory Rate 18 07/02/2024 11:09 AM EST Oxygen Saturation 94% 07/02/2024 11:09 AM EST Inhaled Oxygen Concentration - - Weight 75.9 kg (167 lb 6.4 oz) 07/02/2024 11:09 AM EST Height 160 cm (5' 3 ) 07/02/2024 11:09 AM EST Body Mass Index 29.65 07/02/2024 11:09 AM EST documented in this encounter Progress Notes * Karlene Liang MD - 07/02/2024 11:15 AM EST Subjective Patient ID: Ramona Suarez is a 54 y.o. female with past medical history of asthma, interstitial lungdisease, GERD, seronegative rheumatoid arthritis, fatty liver, fibromyalgia, type 2 diabetes, hyperparathyroidism, alcoholism, and depression who presents to clinic for ED follow-up. PCP Isabel Lewis. Seen [place] [facility] [place]24 . Per notes Patient was at ux manager getting infusion of actemra, this was her 2nd dose. She suddenly began to feel tingling in her hands, panicky, chest pressure, shortness of breath, wheezing Pt then seen at [facility] ER. Seen at [facility] ED 06/22/24 for mid sternal chest pain, CXR showed subtle opacities in the lower lungs, left greater than right, slightly more prominent than on the comparison chest radiograph from 2019. Labs revealed elevated D-Dimer, CTA chest reveals infectious/inflammatory bronchitis superimposed upon chronic interstitial lung disease within an NSIP pattern and mild emphysema. EKG sinus tach. Prescribed Azithromycin and Prednisone, otherwise workup was reassuring with normal troponin, recommended to stay well-hydrated follow-up with PCP. Pt reports continues to have SOB. She has contacted her reliability engineer Dr. Liborio Virgen who has sent prednisone to the pharmacy and ordered CXR. He will determine her follow up based on those results. She agrees to pick pack worker med and have CXR today. Baseline O2 93-96% on RA. Reports has never required O2. Review of Systems Constitutional: Negative for fever. Respiratory: Positive for shortness of breath. Negative for chest tightness. Cardiovascular: Negative for chest pain. Neurological: Positive for dizziness. Objective Visit Vitals BP 103/74 (BP Location: Right arm, Patient Position: Sitting, BP Cuff Size: Adult) Pulse (!) 113 Temp 94.6 ??F (34.8 ??C) (Temporal) Resp 18 Body mass index is 29.65 kg/m??. Physical Exam Constitutional: Appearance: Normal appearance. Cardiovascular: Rate and Rhythm: Normal rate and regular rhythm. Heart sounds: Normal heart sounds. Pulmonary: Comments: Speaking full sentences, no tachypnea. Mild wheeze on expiration. Abdominal: Tenderness: There is no abdominal tenderness. Musculoskeletal: Cervical back: Normal range of motion and neck supple. Neurological: General: No focal deficit present. Mental Status: She is alert. Psychiatric: Behavior: Behavior normal. Problem List Items Addressed This Visit Interstitial lung disease (CMS/HCC) - Primary Seen in ER 06/22/24 for chest discomfort CXR showed subtle opacities in the lower lungs, left greater than right, slightly more prominent than on the comparison chest radiograph from 2019. Labs revealed elevated D-Dimer, CTA chest reveals infectious/inflammatory bronchitis superimposed upon chronic interstitial lung disease within an NSIP pattern and mild emphysema. EKG sinus tach. Prescribed Azithromycin and Prednisone, otherwise workup was reassuring with normal troponin. In contact with her reliability engineer Dr. Liborio Virgen. -advised to pick pack worker prednisone prescribed by pulmonology -encouraged to get CXR ordered by pulmonology -encouraged to follow up pulmonology -ER precautions discussed with pt and her BUTTER FAT TESTER. Seen in emergency department Weakness Rheumatoid arthritis ([facility]) IVeronica, am serving as a scribe to document services personally performed by Dr. Ren, based on the patient's response to questions by provider and providers statements to me. documented in this encounter Miscellaneous Notes * Assessment & Plan Note - Karlene Liang MD - 07/02/2024 11:04 AM EST Associated Problem(s): Interstitial lung disease ([facility]) Seen in ER 06/22/24 for chest discomfort CXR showed subtle opacities in the lower lungs, left greater than right, slightly more prominent than on the comparison chest radiograph from 2019. Labs revealed elevated D-Dimer, CTA chest reveals infectious/inflammatory bronchitis superimposed upon chronic interstitial lung disease within an NSIP pattern and mild emphysema. EKG sinus tach. Prescribed Azithromycin and Prednisone, otherwise workup was reassuring with normal troponin. In contact with her reliability engineer Dr. Liborio Virgen. -advised to pick pack worker prednisone prescribed by pulmonology -encouraged to get CXR ordered by pulmonology -encouraged to follow up pulmonology -ER precautions discussed with pt and her BUTTER FAT TESTER. documented in this encounter Plan of Treatment Upcoming Encounters Date Type Department Care Team (Late st Contact Info) Description 07/23/2024 11:00 AM EST Medication Management [facility] [address], [place] [phone] PuMarti appiah PharmD [address] [place] [address] documented as of this encounter Goals Goal Patient Goal Type Associated Problems Recent Progress Patient-Stated? Author Patient will adhere to medication regimen General Ab Medina PharmD Hemoglobin A1c < 7 Result Component [...] as of this encounter Visit Diagnoses Diagnosis Interstitial lung disease (CMS/HCC)- Primary Postinflammatory pulmonary fibrosis Seen in emergency department Weakness Other malaise and fatigue Rheumatoid arthritis, involving unspecified site, unspecified whether rheumatoid factor present (CMS/HCC) documented in this encounter Additional Health Concerns Assessment Noted Time PHQ-9 Depression Total Score: 9 07/02/19 24 9:27 AM EST documented as of this encounter Care Teams Yarding Engineer Relationship Specialty Start Date End Date Isabel Lewis DO [address] [place] [address] PCP - General Family Medicine 06/03/18 Marti Elder PharmD [address] [place] [address] Pharmacist Internal Medicine 02/22/23 Dimitris Arambula FNP [address] [place] [address] Nurse Practitioner Family Medicine 04/24/23 documented as of this encounter
--- OUTSIDE RECORDS SUMMARY | 2024-07-06 13:32 | XMS_ITS | Encounter Summary ---
Author Organization [employer] Address [address] [facility] [address] [place] [address] Care Team Providers Care Melon Packer Name Role Phone Isabel Lewis DO Primary Care Provider [phone] Marti Elder PharmD Unavailable [phone] Dimitris Arambula UNIT NURSE Unavailable Unavailable Encounter Details Date Type Department Care Team (Latest Contact Info) Description 07/02/2024 Travel Social History Tobacco Use Types Packs/Day Years [...] Description 07/23/2024 11:00 AM EST Medication Management [facility] [address] [place], [place] [phone] Marti Elder PharmD [address], [place] [phone] documented as of this encounter Goals Goal [...] documented as of this encounter Care Teams Melon Packer Relationship Specialty Start Date End Date Isabel Lewis DO [address] [place] [address] PCP - General Family Medicine 06/03/18 Marti Elder PharmD [address] [place] [address] Pharmacist Internal Medicine 02/22/23 Dimitris Arambula FNP [address] [place] [id number] Nurse Practitioner Family Medicine 04/24/23 documented as of this encounter
--- OUTSIDE RECORDS SUMMARY | 2024-07-06 13:32 | XMS_ITS | Encounter Summary ---
Author Organization [employer] Address [address] [facility] [address] [place] [address] Care Team Providers Care Sprinkler Fitter Apprentice Name Role Phone Isabel Lewis DO Primary Care Provider [phone] Marti Elder PharmD Unavailable [phone] Dimitris Arambula MEMORY CARE PROGRAM DIRECTOR Unavailable Unavailable Reason for Visit * Reason Onset Date Comments Nurse Triage 06/30/2024 Encounter Details Date Type Department Care Team (Late st Contact Info) Description 06/30/2024 Telephone [facility] [address], [place] [phone] Isabel Lewis DO [address] [place], [place] [phone] Nurse Triage Social History Tobacco Use Types Packs/Day Years [...] AM EST documented as of this encounter Miscellaneous Notes * Telephone Encounter - Sri Love RN - 06/30/2024 10:05 AM EST Call returned to Ramona Suarez to triage below. Reports having a reaction to medication , seen at [facility] ED on 06/18/24 . Per notes Patient was at [facility] getting infusion of actemra, this was her 2nd dose. She suddenly began to feel tingling in her hands, panicky, chest pressure, shortness of breath, wheezing Pt then seen at [facility] ER for sx of c/o weakness, dizziness, epigastric pain for 5 days. Patient c/o N/D, non productive cough on 06/22/24. Pt reports completing zpak and prednisone as prescribed with no relief of sx. Patient looking for PCP appt for follow up on both visit. Pt continues to have ongoing SOB. Attempting to call [facility] to notify of ER visits. Pt offered appt with PCP tomorrow or Saturday. Declines due to other conflicting appointments. Only available on . Given sick on site with [facility] team provider for most Recent ER visit follow up. Protocol Used: Recent Medical Visit for Illness Follow-up Call (Adult) Protocol-Based Disposition: See in Office or Video Visit Today or Tomorrow Override (Final) Disposition: See in Office or Video Visit within 3 Days Override Reason: Caller refused suggested disposition Future Appointments Date Time Provider Department Center 07/02/2024 11:15 AM Karlene Liang MD MEDICINE [facility] 07/06/2024 9:30 AM Marti Elder PharmD MEDICINE [facility] Insurance verified as active per Real Time Eligibility in Epic. Video visit offer not recorded Positive Triage Question: * Patient wants to be seen * All higher-acuity triage questions were negative Care Advice Discussed: * Reasons To Call Back - You become worse * Telephone Encounter - Nicole Casey - 06/30/2024 9:52 AM EST Symptom: Medication Reaction Outcome: Transfer to a nurse or provider NOW! Reason: Trouble breathing documented in this encounter Plan of Treatment Upcoming Encounters Date Type Department Care Team (Late st Contact Info) Description 07/23/2024 11:00 AM EST Medication Management [facility] [address] [place] [phone] Marti Elder PharmD [address] [place] [address] documented as of this encounter Goals Goal [...] documented as of this encounter Care Teams Sprinkler Fitter Apprentice Relationship Specialty Start Date End Date Isabel Lewis DO [address] [place] [address] PCP - General Family Medicine 06/03/18 Marti Elder PharmD [address] [place] [address] Pharmacist Internal Medicine 02/22/23 Dimitris Arambula FNP [address] [place] [address] Nurse Practitioner Family Medicine 04/24/23 documented as of this encounter
--- OUTSIDE RECORDS SUMMARY | 2024-07-06 13:32 | XMS_ITS | Clinical Summary ---
Author Organization [employer] Address [address] [facility] [address] [place] [address] Care Team Providers Care Space Planner Name Role Phone Isabel Lewis DO Primary Care Provider Marti Elder PharmD Unavailable Dimitris Arambula SEISMOLOGY TEACHER Unavailable Unavailable Allergies Active Allergy Reactions Criticality Noted Date Comments Aspirin 03/08/2014 PT denies allergy, unclear Penicillins Hives 07/17/2010 Sumatriptan Hives,Palpitations Low 07/17/2010 Other reaction(s): tachycardia Topiramate Anxiety Low 07/17/2010 Other reaction(s): psychiatric Medications Symbicort 160-4.5 MCG/ACT inhaler INHALE 2 PUFFS BY MOUTH TWICE DAILY IN THE MORNING AND IN THE EVENING. RINSE MOUTH AFTER USING. 023 Active magnesium oxide (Mag-Ox) 400 (240 Mg) MG tablet Take 400 mg by mouth in the morning. 023 Active Continuous Blood Gluc Director Visual (FreeStyle Jt 2 Poneto) device Use to check blood sugar at least every 8 hours 1 each 023 Active furosemide (Lasix) 80 MG tablet Take 80 mg by mouth in the morning. 023 Active OneTouch Delica Lancets 33G miscIndications: Type 2 diabetes mellitus without complication, with long-term current use of insulin ([facility]) 1 each 2 times daily. Use to test blood sugar twice daily as directed 100 each 11 023 Active Ventolin HFA 108 (90 Base) MCG/ACT inhalerIndicatio ns:Asthma, unspecified asthma severity, unspecified whether complicated, unspecified whether persistent INHALE 2 PUFFS EVERY 4 TO 6 HOURS NEEDED 18 g 2 023 Active Deep Sea Nasal [place] 0.65 % nasal spray USE 2 SPRAYS IN EACH NOSTRIL FOUR TIMES DAILY 023 Active cholecalciferol (Vitamin D-3) 50 MCG (2000 UT) tabletIndication s:Osteopenia, unspecified location TAKE 1 TABLET BY MOUTH EVERY MORNING 90 tablet 3 024 Active Calcium Carb-Cholecalcif betty 600-10 MG-MCG tabletIndication s:Osteopenia, unspecified location TAKE 1 TABLET BY MOUTH TWICE DAILY IN THE MORNING AND AT BEDTIME 180 tablet 3 024 Active Continuous Glucose Sensor (FreeStyle Jt 2 Sensor) misc TEST BLOOD SUGAR EVERY 8 HOURS AND NEEDED. CHANGE EVERY 14 DAYS 2 each 024 Active albuterol (2.5 MG/3ML) 0.083% nebulizer solutionIndicati ons:Mild persistent asthma, uncomplicated INHALE 1 AMPULE USING A NEBULIZER FOUR TIMES DAILY NEEDED 90 mL 3 024 Active Spiriva Respimat 2.5 MCG/ACT inhaler INHALE 2 PUFFS BY MOUTH ONCE DAILY Active glucagon (Gvoke HypoPen 2-Pack) 1 MG/0.2ML injectionIndicat ions:Type 2 diabetes mellitus without complication, with long-term current use of insulin ([facility]) Inject 0.2 mL (1 mg) under the skin 1 (one) time if needed for low blood sugar. 1 each 2 024 2024 Active OneTouch Ultra Test test stripIndications :Type 2 diabetes mellitus without complication, with long-term current use of insulin ([facility]) USE DIRECTED TO TEST BLOOD SUGAR TWICE DAILY 50 strip 11 Active leflunomide (Arava) 20 MG tablet Active polyethylene glycol, PEG, 3350 (Glycolax) 17 GM/SCOOP powderIndication s:Chronic constipation TAKE 17 GM MIXED IN 8 OUNCES OF WATER ONCE DAILY 510 g 2 Active Additional Information Patient not taking.Reported on 06/05/2024 Multiple Vitamins-Iron (Tab-A-Manjeet/Iron ) tablet TAKE 1 TABLET BY MOUTH EVERY MORNING WITH FOOD 30 tablet Active amitriptyline (Elavil) 10 MG tablet TAKE 2 TABLETS BY MOUTH EVERY DAY AT BEDTIME 60 tablet Active melatonin 5 MG tabletIndication s:Insomnia, unspecified type TAKE 2 TABLETS BY MOUTH EVERY DAY AT BEDTIME FOR SLEEP 60 tablet Active oxybutynin XL (Ditropan-XL) 5 MG 24 hr tabletIndication s:Urinary incontinence, unspecified type TAKE 1 TABLET BY MOUTH EVERY EVENING 30 tablet Active Pentips 32G X 4 MM misc USE DIRECTED ONCE DAILY WITH lantus 100 each Active divalproex (Depakote ER) 500 MG 24 hr tabletIndication s:Mood disorder (CMS/HCC) TAKE 1 TABLET BY MOUTH TWICE DAILY IN THE MORNING AND AT BEDTIME 180 tablet Active DULoxetine (Cymbalta) [address] capsuleIndicatio ns:Mood disorder (CMS/HCC) TAKE 1 CAPSULE BY MOUTH EVERY MORNING 90 capsule Active empagliflozin-me tFORMIN (Synjardy) 12.5-1000 MGIndications:Ty pe 2 diabetes mellitus without complication, with long-term current use of insulin (CMS/HCC) Take 1 tablet by mouth with breakfast and with evening meal. 60 tablet 024 2024 Active atorvastatin (Lipitor) 10 MG tablet TAKE 1 TABLET BY MOUTH AT BEDTIME 90 tablet Active busPIRone (Buspar) 15 MG tabletIndication s:Mood disorder (CMS/HCC) TAKE 1 TABLET BY MOUTH THREE TIMES DAILY IN THE MORNING, AT NOON, AND IN THE EVENING 270 tablet Active gabapentin (Neurontin) 300 MG capsule Take 2 capsules (600 mg) by mouth 3 times daily. 180 capsule Active ARIPiprazole (Abilify) 20 MG tablet Take 1 tablet (20 mg) by mouth in the morning. 90 tablet Active Urine Glucose-Ketones Test stripIndications :Type 2 diabetes mellitus without complication, with long-term current use of insulin ([facility]) 1 each by In Vitro route if needed each day (BS > 400 mg/dL or syptoms of DKA (nausea, vomiting, confusion, RUBIO, etc.)). 50 strip 2 024 Active riboflavin (vitamin B2) 100 mg tablet tablet Take 100 mg by mouth 2 times daily. Active omeprazole (PriLOSEC) [address] capsuleIndicatio ns:Chronic GERD TAKE 2 CAPSULES BY MOUTH TWICE DAILY IN THE MORNING AND EVENING BEFORE MEALS. DO NOT BREAK, CRUSH, DISSOLVE OR CHEW. 360 capsule 3 024 Active baclofen (Lioresal) 5 MG tabletIndication s:Muscle spasm TAKE 1 TABLET BY MOUTH THREE TIMES DAILY NEEDED FOR MUSCLE SPASMS OR FOR PAIN 60 tablet 3 024 Active Tirzepatide (Mounjaro) 12.5 MG/0.5ML solution auto-injectorInd ications:Type 2 diabetes mellitus without complication, with long-term current use of insulin ([facility]) Inject 12.5 mg under the skin 1 (one) time per week. Starting ~06/24/23 2 mL 025 Active Tocilizumab (ACTEMRA IV) Dose per rheumatology (4 to 8 mg/kg, max 800 mg/dose) IV over 1 hour once monthly Active insulin aspart (NovoLOG FLEXPEN) 100 UNIT/ML penIndications:T ype 2 diabetes mellitus without complication, with long-term current use of insulin ([facility]) Inject 40 units subQ two to three times daily with meals. 30 mL 2 025 Active insulin degludec (Tresiba FlexTouch) 200 UNIT/ML injectionIndicat ions:Type 2 diabetes mellitus without complication, with long-term current use of insulin ([facility]) Inject 110 Units under the skin in the morning. 18 mL 2 025 Active QUEtiapine (SEROquel) 200 MG tabletIndication s:Mood disorder (CMS/[facility]) TAKE 1 TABLET BY MOUTH AT BEDTIME 90 tablet 025 Active Alcohol Swabs (Alcohol Prep) 70 % padsIndications: Type 2 diabetes mellitus without complication, with long-term current use of insulin ([facility]) USE 1 TWICE DAILY DIRECTED 100 each 06/15/2 025 Active predniSONE (Deltasone) 20 MG tablet TAKE 2 TABLETS BY MOUTH EVERY DAY FOR 5 DAYS, THEN DECREASE BY 1/2 TABLET BY MOUTH EVERY 3 DAYS 025 2024 Active Chantix Starting Month Carlos 0.5 MG X 11 & 1 MG X 42 tablet therapy pack Take 1 tablet by mouth. 025 Active FT Nicotine 21 MG/24HR patch APPLY 1 PATCH TOPICALLY TO THE SKIN IN THE MORNING DO NOT SMOKE WHILE USING PATCH 025 Active Alcohol Swabs (Alcohol Prep) 70 % pads USE 1 SWAB TWICE DAILY DIRECTED 100 each 11 023 2024 Discontinued QUEtiapine (SEROquel) 200 MG tabletIndication s:Mood disorder (CMS/HCC) TAKE 1 TABLET BY MOUTH AT BEDTIME 90 tablet 1 024 2024 Discontinued Tirzepatide (Mounjaro) 10 MG/0.5ML solution auto-injectorInd ications:Type 2 diabetes mellitus without complication, with long-term current use of insulin (CMS/HCC) Inject 10 mg under the skin 1 (one) time per week for 18 days. 025 2024 Active Problems Problem Noted Date Diagnosed Date Seen in emergency department 07/02/2024 Weakness 07/02/2024 Rheumatoid arthritis 07/02/2024 Urinary incontinence 10/30/2023 Cataracts, bilateral 10/30/2023 History of COVID-19 04/04/2023 05/22/2023 Overview (05/22/2023): Problem added by Discern Expert Fatty liver 07/13/2022 Fibromyalgia 07/13/2022 Moderate persistent asthma 07/13/2022 Interstitial lung disease 07/13/2022 Assessment & Plan (07/02/2024 12:19 PM EST): Seen in ER 06/22/24 for chest discomfort [...] with normal troponin. In contact with her supervisor hydrochloric area Dr. Liborio Virgen. 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 Type 2 diabetes mellitus 11/20/2016 Mood disorder 07/05/2015 Assessment & Plan (07/02/2023 10:03 AM EST): with psychotic features. Differential includes: Schizoaffective d/o Bipolar type, BPD, PTSD, MDD with psychosis. Anxiety with paranoid features (someone watching, following). Not doing as well since she was ill with COVID in April,, with recurrence of visual (black shadows) and auditory Hallucinations. Will increase to Seroquel 200 mg at bedtime. Continue Abilify 20 mg daily, Depakote ER 500 mg BID. Recent labs show normal LFTs, will need to monitor as well as Depakote level. Continue Buspirone 15 mg TID. She will continue Duloxetine 60 mg daily per PCP. Also Gabapentin and Amitriptyline per PCP. Be alert to risk for mood destabilization. Follow up with therapist. On 05/02/2023 provider informed the patient that I would be retiring, and suggested she speak with her therapist about referral to agency psychiatric prescriber. F/U with me in 2 months. She agrees with the plan. Assessment & Plan (05/02/2023 9:49 AM EST): with psychotic features. Differential includes: Schizoaffective d/o Bipolar type, BPD, PTSD, MDD with psychosis. Anxiety with paranoid features (someone watching, following). She is doing much better, and will continue Seroquel 150 mg at bedtime, Abilify 20 mg daily, Depakote ER 500 mg BID. Recent labs show normal LFTs, will need to monitor as well as Depakote level. Continue Buspirone 15 mg TID. She will continue Duloxetine 60 mg daily per PCP. Also Gabapentin and Amitriptyline per PCP. Be alert to risk for mood destabilization. Follow up with therapist. Today 05/02/2023 provider informed the patient that I would be retiring within the next year, and suggest she speak with her therapist about referral to agency psychiatric prescriber. F/U with me in 2 months. She agrees with the plan. Assessment & Plan (04/01/2023 11:04 AM EDT): with psychotic features. Differential includes: Schizoaffective d/o Bipolar type, BPD, PTSD, MDD with psychosis. Anxiety with paranoid features (someone watching, following). Although she is now acutely ill with COVID, reports that she has not been doing well with persistent hallucinations, poor sleep, nightmares. Will increase to Seroquel 200 mg at bedtime. Continue to be alert for EPS. Continue Abilify 20 mg daily. Continue Depakote ER 500 mg BID. Recent labs show normal LFTs, will need to monitor as well as Depakote level. Continue Buspirone 15 mg TID. She will continue Duloxetine 60 mg daily per PCP. Also Gabapentin and Amitriptyline per PCP. Be alert to risk for mood destabilization. Follow up with therapist, and F/U with me in 1 month. She agrees with the plan. Assessment & Plan (10/15/2022 1:39 PM EDT): with psychotic features. Differential includes: Schizoaffective d/o Bipolar type, BPD, PTSD, MDD with psychosis. Anxiety with paranoid features (someone watching, following). Today she says she isn't doing well, Mother's day was hard. Will cautiously increase Seroquel to 150 mg at bedtime. Continue to be alert for worsening leg cramps. Continue Abilify 20 mg daily. Continue Depakote ER 500 mg BID. Recent labs show normal LFTs, will need to monitor as well as Depakote level. Continue Buspirone 15 mg TID. She will continue Duloxetine 60 mg daily per PCP. That could also be increased as needed, being cognizant of risk for mood destabilization. Follow up with therapist, practicing coping strategies, and F/U with me in 2 months. She agrees with the plan. Assessment & Plan (08/28/2022 4:05 PM EDT): with psychotic features. Differential includes: Schizoaffective d/o Bipolar type, BPD, PTSD, MDD with psychosis. Anxiety with paranoid features (someone watching, following). Continues improving. At this time will increase again to Abilify 20 mg daily. Continue to be alert for worsening leg cramps. Stop Seroquel 50 mg am. Continue Seroquel 100 mg HS. Hope to transition to antipsychotic with fewer metabolic S/E in context of poorly controlled DM and hyperlipidemia. Continue Depakote ER 500 mg BID. Recent labs show normal LFTs, will need to monitor as well as Depakote level. Continue Buspirone 15 mg TID. She will continue Duloxetine 60 mg daily per PCP. That could also be increased as needed, being cognizant of risk for mood destabilization. Reviewed sleep hygiene, no electronics during sleep hours. Follow up with therapist, practicing coping strategies, and F/U with me in 4-6 weeks. She agrees with the plan. F/U with therapist as usual, and with me in 6 weeks. If psychiatric prescriber becomes available at that agency she may transfer care, but it is not mandatory. She agrees with the plan. Assessment & Plan (07/03/2022 10:25 AM EST): with psychotic features. Differential includes: Schizoaffective d/o Bipolar type, BPD, PTSD, MDD with psychosis. Anxiety with paranoid features (someone watching, following). Doing a little better. At this time will increase again to Abilify 15 mg daily. Continue to be alert for worsening leg cramps. For now, continue Seroquel 50 mg am and 100 mg HS while cross-titrating with Abilify. Hope to transition to antipsychotic with fewer metabolic S/E in context of poorly controlled DM and hyperlipidemia. Continue Depakote ER 500 mg BID. Recent labs show normal LFTs, will need to monitor as well as Depakote level. Continue Buspirone 15 mg TID. She will continue Duloxetine 60 mg daily per PCP. That could also be increased as needed, being cognizant of risk for mood destabilization. Follow up with therapist, practicing coping strategies, and F/U with me in 6-8 weeks. She agrees with the plan. F/U with therapist as usual, and with me in 6 weeks. If psychiatric prescriber becomes available at that agency she may transfer care, but it is not mandatory. She agrees with the plan. Assessment & Plan (05/22/2022 1:32 PM EST): with psychotic features. Differential includes: Schizoaffective d/o Bipolar type, BPD, PTSD, MDD with psychosis. Anxiety with paranoid features (someone watching, following). At this time will increase to Abilify 10 mg daily. Continue to be alert for worsening leg cramps. For now, continue Seroquel 50 mg am and 100 mg HS while cross- titrating with Abilify. Hope to transition to antipsychotic with fewer metabolic S/E in context of poorly controlled DM and hyperlipidemia. Continue Depakote ER 500 mg BID. Recent labs show normal LFTs, will need to monitor as well as Depakote level. The Buspirone was helpful at first for anxiety, but no longer. Will now increase to Buspirone 15 mg TID. She will continue Duloxetine 60 mg daily per PCP. That could also be increased as needed, being cognizant of risk for mood destabilization. F/U with therapist as usual, and with me in 6 weeks. If psychiatric prescriber becomes available at that agency she may transfer care, but it is not mandatory. She agrees with the plan. Chronic alcoholism in remission 07/05/2015 Chronic pain syndrome 07/05/2015 Chronic gastroesophageal reflux disease 07/05/19 16 Hyperparathyroidism 07/05/2015 Chronic migraine 07/05/2015 BMI 32.0-32.9,adult 07/05/2015 Osteopenia 07/05/2015 Primary ovarian failure 07/05/2015 Vitamin D deficiency 07/05/2015 Major depressive disorder 06/17/2012 PTSD (post-traumatic stress disorder) 06/17/2012 Resolved Problems Problem Noted Date Diagnosed Date Resolved Date Asthma 09/04/2022 10/30/2023 Fibromyositis 07/05/2015 07/13/2022 Steatosis of liver 07/05/2015 3 Encounters Date Type Department Care Team Description 07/06/2024 10:15 AM EST Office Visit [facility] [address] [place] [id number] Radhika Shaw NP Elevated blood sugar level (Primary Dx); Weakness; Other chest pain; Hypoxia 07/02/2024 11:15 AM EST Office Visit [facility] [address] [place] [id number] Karlene Liang MD Interstitial lung disease ([facility]) (Primary Dx); Seen in emergency department; Weakness; Rheumatoid arthritis, involving unspecified site, unspecified whether rheumatoid factor present ([facility]) 07/02/2024 Travel 06/30/[address] [address] Wendy Hewitt MA chartprep 06/30/[address] [address] Isabel Lewis DO Nurse Triage 06/18/2024 Orders Only [facility] External Provider, [facility] 06/15/2024 Refill [facility] [address] [place] [address] Isabel Lewis DO Mood disorder ([facility]); Type 2 diabetes mellitus without complication, with long-term current use of insulin ([facility]) 06/05/2024 Travel 06/04/[address] [address] Isabel Lewis DO Durable Medical Equipment ([facility] ) 05/03/[address] [address] Isabel Lewis DO Chronic GERD; Muscle spasm 04/23/[address] [phone] Isabel Lewis DO ER Follow-up 04/12/2024 Orders Only [address] [address] Isabel Lewis DO Type 2 diabetes mellitus without complication, with long-term current use of insulin ([facility]) (Primary Dx) 04/07/2024 Travel from Last 3 Months Immunizations Name Administration Dates Next Due Hep B, adult 11/15/2023(Deferred: Patient Refused),05/22/2023(Deferred: Patient Refused) Influenza Injectable Quadriv alant Preservative Free IIV4 MDCK 02/22/2023 Influenza injectable quadriv alent IIV4 with preservative 04/11/2018,02/17/2016 Influenza injectable quadriv alent preservative free 07/11/2022,03/06/2021,05/16/2020,04/16 Influenza, IIV3, injectable 05/03/2015, 4,06/17/2012 Influenza, seasonal, injecta ble, preservative free 02/28/2024 Moderna Covid-19 Vaccine 6+ Bivalent 07/11/2022 Pneumococcal Conjugate PCV 13 07/17/2017 Pneumococcal Conjugate PCV 20 02/28/2024 ,11/15/2023(Deferred: Patient decision) Pneumococcal Polysaccharide PPSV23 10/22/2018, TD (adult), 2 Lf tetanus tox oid, preservative free, adsorbed 09/11/1993 Tdap 09/17/2013 Zoster, Recombinant 03/08/2023,10/10/2022 Social History Tobacco Use Types Packs/Day Years Used Date Smoking Tobacco: Every Day Cigarettes Passive Smoke Exposure: Current Smokeless Tobacco: Current Tobacco Cessation:Ready to Q uit: Not Asked; Counseling Given: Not Answered Alcohol Use Standard Drinks/Week Comments Never 0 [...] Orientation Straight 07/02/2024 11 :13 AM EST Last Filed Vital Signs Vital Sign Reading [...] EST Height 160 cm (5' 3 ) 07/06/2024 10:11 AM EST Body Mass Index 29.65 07/02/2024 11:09 AM EST Plan of Treatment Upcoming Encounters Date Type Department Care Team (Late st Contact Info) Description 07/23/2024 11:00 AM EST Medication Management [facility] [address] [place] [address] Marti Elder, PharmD [address] [place] [address] Health Maintenance Due Date Last Done Comments CT Colonography 1968 FIT DNA/Cologuard 1968 FIT 1968 FOBT 1968 Sigmoidoscopy 1968 Diabetes: Foot Exam 02/02/1978 Eye Exam 02/02/1978 Hepatitis A Vaccines (1 of 2 - Risk 2-dose series) 02/02/1987 Hepatitis B Vaccines (1 of 3 - 19+ 3-dose series) 02/02/1987 Diabetes: Urine Protein Screening 01/17/2021 01/18/2020 DTaP/Tdap/Td Vaccines (2 - Td or Tdap) 09/18/2023 09/17/2013, 09/11/1993 Lipid Panel 10/11/2023 10/10/2022, 04/0 09/2021, 01/18/2020 Depression Monitoring (PHQ-9) 12/31/2023 07/02/2023, 07/02/2023 COVID-19 Vaccine ( season) 2024 07/11/2022, 01/29/2022, 11/03/2020, Additional history exists Depression Screening 07/02/2024 07/02/2023, 07/02/19 24 Diabetes: Hemoglobin A1C 09/03/2024 025, 02/28/2024, 12/03/2023, Additional history exists SDOH Screening 10/29/2024 10/30/2023 Alcohol/Substance Use Screening 07/02/2025 07/02/2024 Tobacco Screening 07/02/2025 07/02/2024 Mammogram 12/17/2025 12/18/2023, 12/01, 05/12/2021, Additional history exists Colonoscopy 02/12/2026 02/12/2019 Colorectal Cancer Screening 02/12/2026 Cervical Cancer Screening 02/15/2026 Pap Smear 02/15/2026 02/15/2023, 01/26/2022 HPV/Cotest 02/16/2028 02/15/2023, 01/02, 11/28/2018 RSV Patients and Patients Aged 60 years or older (1 - 1-dose 75+ series) 02/02/2043 HIV Screening Completed 01/18/2020 Zoster Vaccines Completed 03/08/2023, 10/10/2022 Hepatitis C Screening Completed 04/24/2023, 020 Influenza Vaccine Completed 02/28/2024, , 07/11/2022, Additional history exists Pneumococcal Vaccine: 50+ Years Completed 02/28/2024, 10/22/2018, 07/17/2017, Additional history exists HIB Vaccines Aged Out No longer eligi ble based on patient's age to complete this topic HPV Vaccines Aged Out No longer eligi ble based on patient's age to complete this topic IPV Vaccines Aged Out No longer eligi ble based on patient's age to complete this topic Meningococcal Vaccine Aged Out No celine warren eligible based on patient's age to complete this topic RSV under 20 months Aged Out No longe r eligible based on patient's age to complete this topic Rotavirus Vaccines Aged Out No longer eligible based on patient's age to complete this topic Goals Goal Patient Goal Type Associated Problems Recent Progress Patient-Stated? Author Patient will adhere to medication regimen General No Ab Burns, Kwaku Hemoglobin A1c < 7 Result Component 9.9( 11:40 AM EST) No Franki Walton PharmD Record your blood sugar as directed Result Component On track( 11:32 AM EDT) No Marti Elder PharmD Note: Use CGM, ensuring sensor is scanned at least once every 8 hours to capture 24H data. Check BG manually, as directed. Procedures Procedure Name Priority Date/Time Associated Diagnosis Comments ECG 12-LEAD Routine 07/06/2024 1:28 PM EST Other chest pain POCT GLUCOSE Routine 07/06/2024 10:01 AM EST Elevated blood sugar level VENOUS BLOOD GAS Routine 06/18/2024 2:20 PM EST B TYPE NATRIURETIC PEPTIDE (BNP) Routine 06/18/2024 2:15 PM EST HIGH SENSITIVITY TROPONIN I Routine 06/18/2024 2:15 PM EST COMPREHENSIVE METABOLIC PANEL Routine 06/18/2024 2:15 PM EST CBC WITH AUTO DIFFERENTIAL Routine 06/18/2024 2:15 PM EST SARS COV2/INFLUENZA A/B AND RSV RNA QL NAAT Routine 06/18/2024 2:15 PM EST XR CHEST 2 VIEWS Routine 06/18/2024 1:27 PM EST POCT GLYCATED HEMOGLOBIN, TOTAL Routine 06/05/2024 11:40 AM EST Type 2 diabetes mellitus without complication, with long-term current use of insulin (CMS/HCC) POCT URINALYSIS DIPSTICK Routine 04/07/2024 10:29 AM EST Type 2 diabetes mellitus without complication, with long-term current use of insulin (CMS/HCC) BI MAMMOGRAM SCREENING TOMOSYNTHESIS BILATERAL Routine 12/18/2023 11:10 AM EDT HEPATITIS PANEL, GENERAL Routine 04/24/2023 10:28 AM EST HPV MRNA E6/E7 REFLEX TO HPV 16, 18/45 Routine 02/15/2023 12:49 PM EDT PAP SMEAR Routine 02/15/2023 12:49 PM EDT LIPID PANEL, STANDARD Routine 10/10/2022 10:20 AM EDT Healthcare maintenance HIV 1/2 ANTIGEN/ANTIBODY, FOURTH GENERATION W/RFL Routine 01/18/2020 11:16 AM EDT ALBUMIN, RANDOM URINE W/CREATININE Routine 01/18/2020 11:16 AM EDT HM COLONOSCOPY Routine 02/12/2019 9:13 AM EDT from Last 3 Months or Most Recently Relevant to Health Maintenance Results * ECG 12 lead (07/06/2024 1:28 PM EST) Narrative Radhika Shaw NP - 07/06/2024 1:28 PM EST SR EKG without change in morphology from previous Radhika Shaw NP ECG ORDERABLES Final Result * (ABNORMAL) POCT Glucose (07/06/2024 10:01 AM EST) Glucose Blood, POC 500(A) 60 - 200 mg/dL QC Media Lot # [id number] Lot# Expiration Date Blood Capillary blood specimen / Unknown 07/06/2024 10:01 AM EST us Radhika Valeria ADHIKARI POINT OF CARE TEST ENTER/EDIT O RDERABLES Final Result * (ABNORMAL) VENOUS BLOOD GAS (06/18/2024 2:20 PM EST) Pathologist [facility] [place] VBG pH 7.54(H) 7.32 - 7.43 [facility] Comment:METER #: [id number] additional_comment: Tad hopkinsd VBG PCO2 27 mmHg [facility] Comment:METER #: [id number] additional_comment: Cb damourd VBG PO2 65 mmHg [facility] Comment:METER #: [id number] additional_comment: Cb damourd VBG Base Excess 1.6 mmol/L [facility] Comment:METER #: [id number] additional_comment: Cb sandeepd VBG HCO3 23 22 - 26 mmol/L [facility] Comment:METER #: [id number] additional_comment: Tad hopkinsd O2 Sat, Zane 90.0 % [facility] Comment:METER #: [id number] additional_comment: Tad wu 06/18/2024 2:20 PM EST 06/18/2024 2:26 PM EST us Generic External Data Provider LAB BLOOD ORDERAB LES Final Result [facility] [address] [place] [phone] * High Sensitivity Troponin I (06/18/2024 2:15 PM EST) Pathologist [facility] [place] TROPONIN I HIGH SENSITIVITY <2.7 <3.5 - 17.0 ng/L [facility] Comment:The Maher high sens itivity Troponin-I results should beused in conjunction with other diagnostic information suchas ECG, clinical observations and information, and patientsymptoms to aid in the diagnosis of CA. 06/18/2024 2:15 PM EST 06/18/2024 2:38 PM EST us Generic External Data Provider LAB BLOOD ORDERAB LES Final Result Performing Organization Address [facility] Co de Phone Number [facility] [address] [place] [phone] * SARS-CoV-2 RNA, Influenza A/B, and RSV RNA, Ql NAAT (06/18/2024 2:15 PM EST) Influenza A PCR NEGATIVE Negative [facility] Influenza B PCR NEGATIVE Negative [facility] Resp Syncy Virus RNA Qual PCR NEGATIVE Negative [facility] SARS COV2 PCR NEGATIVE Negative [facility] Comment:All test results mus t be [...] use by authorized laboratories.Testing performed on the [employer] GeneXpert utilizingreal-time RT-PCR.All SARS CoV2 and positive influenza A/B results arereported to [facility]. 06/18/2024 2:15 PM EST 06/18/2024 2:19 PM EST Generic External Data Provider LAB MICROBIOLOGY - GENERAL ORDERABLES Final Result Performing Organization Address [facility] Co de Phone Number [facility] [address] [place] [phone] * (ABNORMAL) CBC auto differential (06/18/2024 2:15 PM EST) White Blood Count 16.9(H) 4.8 - 10.8 X10*3/uL [facility] Red Blood Count 3.75(L) 4.20 - 5.50 X10*6/uL [facility] Hemoglobin 10.3(L) 12.0 - 16.0 g/dl [facility] Hematocrit 32.1(L) 37.0 - 47.0 % [facility] Mean Corpuscular Volume 85.6 80.0 - 98.0 fL [facility] Mean Corpuscular Hemoglobin 27.5 27.0 - 33.0 pg [facility] Mean Corpuscular HGB Conc 32.1 31.0 - 35.0 g/dl [facility] Red Cell Distribution Width 17.2(H) 11.0 - 16.0 % [facility] Platelet Count 338 160 - 400 X10*3/uL [facility] Mean Platelet Volume 9.7 9.4 - 12.3 fL [facility] Neutrophils Percent Auto 87.8(H) 45 - 73 % [facility] Imm Gran Pct Auto 0.5(H) 0.0 - 0.4 % [facility] Lymphocytes Percent Auto 5.2(L) 20 - 40 % [facility] Monocytes Percent Auto 5.5 2 - 11 % [facility] Eosinophils Percent Auto 0.4 0 - 4 % [facility] Basophils Percent Auto 0.6 0 - 2 % [facility] NRBC Pct Auto 0.0 0.0 - 0.2 /100WBC [facility] Neutrophils Absolute Auto 14.8(H) 2.0 - 8.3 x10*3/uL [facility] Imm Gran Abs Auto 0.08(H) 0.00 - 0.03 X10*3/uL [facility] Lymphocytes Absolute Auto 0.9(L) 1.2 - 4.9 X10*3/uL [facility] Monocytes Absolute Auto 0.9 0.1 - 1.2 X10*3/uL [facility] Eosinophils Absolute Auto 0.1 0.0 - 0.4 X10*3/uL [facility] Basophils Absolute Auto 0.1 0.0 - 0.2 X10*3/uL [facility] NRBC Abs Auto 0.000 0.0 - 0.012 X10*3/uL [facility] 06/18/2024 2:15 PM EST 06/18/2024 2:21 PM EST [email or web address] External Data Provider LAB BLOOD ORDERAB LES Final Result Performing Organization Address [facility] de Phone Number [facility] [address] [place] [phone] * B Type Natriuretic Peptide (BNP) (06/18/2024 2:15 PM EST) [facility] B Type Natriuretic Peptide 23 <100 pg/mL [facility] Comment:For those patients w ho are being treated with Natrecor(nesiritide, recombinant BNP), BNP testing should beperformed at least two hours post treatment in order toensure that only endogenous levels of BNP are detected. 06/18/2024 2:15 PM EST 06/18/2024 2:38 PM EST [email or web address] External Data Provider LAB BLOOD ORDERAB LES Final Result Performing Organization Address [facility] de Phone Number [facility] [address] [place] [address] [phone] * (ABNORMAL) Comprehensive Metabolic Panel (06/18/2024 2:15 PM EST) [facility] Sodium 142 135 - 145 mmol/L [facility] Potassium 3.4 3.3 - 5.1 mmol/L [facility] Chloride 112(H) 96 - 108 mmol/L [facility] Carbon Dioxide 23 22 - 29 mmol/L [facility] Anion Gap 10(L) 12 - 20 [facility] Urea Nitrogen (BUN) 7(L) 9 - 16 mg/dL [facility] Creatinine, Serum 0.78 0.5 - 1.4 mg/dL [facility] Creatinine Clr Calc Pharmacy 83.2 [facility] Comment:Provided height and weight: 162.56 cm,81.6 kg.eGFR (calculated from the MDRD study equation) and eCrCl(calculated from the Cockcroft-Gault equation) are based ondifferent parameters and may not yield comparable results.If eCrCl result is absurd, please check patient'sheight/weight. Estimated Glomerular Filt Rate >60 [facility] Comment:Chronic Kidney Disea se: Estimated GFR < 60 mL/min/1.83o9Xepiqy Kidney Disease: Estimated GFR < 15 mL/min/1.73m2 Glucose 188(H) 60 - 115 mg/dL [facility] Calcium 7.9(L) 8.4 - 10.2 mg/dL [facility] Bilirubin, Total 0.3 0.0 - 1.0 mg/dL [facility] Aspartate Amino Transferase 16 5 - 31 U/L [facility] Alanine Aminotransferase <6 0 - 31 U/L [facility] Total Protein 6.5 6.5 - 8.0 g/dL [facility] Albumin Level 3.4(L) 3.5 - 5.0 g/dL [facility] Alkaline Phosphatase 130(H) 39 - 117 U/L [facility] 06/18/2024 2:15 PM EST 06/18/2024 2:21 PM EST us Generic External Data Provider LAB BLOOD ORDERAB LES Final Result Performing Organization Address City/State/[facility] Co de Phone Number [facility] [address] [place] [phone] * XR Chest 2 Views (06/18/2024 1:27 PM EST) Anatomical Region Laterality Modality Chest Radiographic Lisa ging 06/18/2024 1:2 7 PM EST Narrative 06/18/2024 1:50 PM EST ? [facility] ?[address] ?[place] [address] ?XRay Report ? Signed ? Patient: Suarez,Ramona ?MR#: [id number] ? : 1970 ?Acct:[id number] ? Age/Sex: 54 / F ?ADM Date: 01/16/25 ? Loc: HO.ED ? Attending Dr: ? Ordering Physician: Frances Yen MD ?? Date of Service: 06/18/24 ?? Procedure(s): XR chest 2V ?? Accession Number(s): [id number] ? cc: Frances Yen MD; Isabel Lewis [...] airway disease. ? Electronically signed by: ??Joey Camarilol MD ??06/18/2024 01:47 PM ?? EST ? Dictated By: ?Joey Robles MD ? Signed By: ?<Electronically signed by Joey Andrade MD in OV> ? 06/18/24 1347 ? DD/ 1327 ? TD/TT: 06/18/24 1344 ? Tradeshow Worker: ? Procedure Note Maryanamitali, Image - 06/18/2024 [place] [address] XRay Report Signed Patient: Ramona SuarezMR#: [id number] : 1970Acct:[id number] Age/Sex: 54 / FADM Date: 06/18/24 Loc: HO.ED Attending Dr: Ordering Physician: Frances Yen MD Date of Service: 06/18/24 Procedure(s): XR chest 2V Accession Number(s): [id number] cc: Frances Yen MD; Isabel Lewis DO [...] 06/18/24 1347 DD/ 1327 TD/TT: 06/18/24 1344 Tradeshow Worker: [facility] External Provider IMG XR PROCEDURES Final Result * (ABNORMAL) POCT HGB A1C (06/05/2024 11:40 AM EST) Hemoglobin A1C 9.9(A) 4.0 - 6.0 % Blood 06/05/2024 11:4 0 AM EST Isabel Lewis DO POINT OF CARE TEST ENTER/MELISSA T ORDERABLES Final Result * POCT Urinalysis (04/07/2024 10:29 AM EST) Color, UA Yellow Clarity, UA Clear Glucose, UA 4+ >500 Comment:known result of tx w / SGLT2i Bilirubin, UA Negative Ketones, UA Negative Blood, UA Negative Negative, None Detected pH, UA 6.0 Protein, UA Negative Urobilinogen, UA 0.2 Leukocytes, UA Negative Negative, Rare, Trace Nitrite, UA Negative Negative, None Detected Urine 04/07/2024 10:2 9 AM EST Isabel Lewis DO POINT OF CARE TEST ENTER/MELISSA T ORDERABLES Final Result * BI Mammogram Screening Tomosynthesis Bilateral (12/18/2023 11:10 AM EDT) Anatomical Region Laterality Modality Breast Bilateral Mammography 12/18/2023 11:1 0 AM EDT Narrative 01/08/2024 1:42 PM EDT ? [facility] ? [address] ?[place], [place] [address] ? Mammography Report ? Signed ? Patient: Suarez,Ramona ?MR#: [id number] ? : 1970 ?Acct:[id number] ? Age/Sex: 53 / F ?ADM Date: 12/18/23 ? Loc: HO.MAMMO ? Attending Dr: Isabel Lewis DO ? Ordering Physician: Isabel Lewis DO ?Results: 1N ?? egative ? Date of Service: 12/18/23 ?Follow Up: 1 Year From Orig ?? inal Mammogram ? Procedure(s): MM tomosynthesis screening BI ?? Accession Number(s): [id number] ? cc: Dionne Lewisnijasmin Cuba DO ? EXAMINATION: ?? MM SCREENING DIGITAL BREAST TOMOSYNTHESIS, BILATERAL ? CLINICAL INFORMATION: ? Screening. Asymptomatic. ? COMPARISON: ?? Mammography: This study is compared with prior exams dating back to ?? 2018. ? TECHNIQUE: ?? Digital breast tomosynthesis is performed in both the craniocaudal and ?? mediolateral oblique views along with computer-aided detection (CAD). ?? Synthesized 2D images are generated from the tomosynthesis. ? FINDINGS: ?? The breasts are almost entirely fatty (ACR BI-RADS breast composition ?? Category a). ? There are no significant masses, abnormal calcifications, or other ?? abnormalities. ? MM/MM tomosynthesis screening BI ?? IMPRESSION: ?? No mammographic evidence of malignancy. ? ASSESSMENT: ? BI-RADS BI-RADS 1 - Negative ? RECOMMENDATION: ?? Routine annual mammography screening. ? 1 year F/U ? This examination should not preclude the clinical evaluation of a ?? suspicious palpable abnormality. ? This patient's information was entered into a reminder system with a ?? target due date for their next mammogram. ? Dictated By: ?Nydia Flores MD ? Signed By: ?<Electronically signed by Nydia Flores MD in OV> ? 01/08/24 1338 ? DD/ 1110 ? TD/TT: ? Tradeshow Worker: ? Procedure Note Chely, Image - 01/08/2024 [facility] [address] [place], [place] [address] Mammography Report Signed Patient: Maine Suarez#: [id number] : 1970Acct:[id number] Age/Sex: 53 / FADM Date: 12/18/23 Loc: J CARLOSO Attending Dr: Isabel Lewis DO Ordering Physician: Isabel Lewisults: 1N egative Date of Service: 12/18/23Follow Up: 1 Year From Orig inal Mammogram Procedure(s): MM tomosynthesis screening BI Accession Number(s): [id number] cc: Isabel Lewis DO EXAMINATION: MM SCREENING DIGITAL BREAST TOMOSYNTHESIS, BILATERAL CLINICAL INFORMATION: Screening. Asymptomatic. COMPARISON: Mammography: This study is compared with prior exams dating back to 2018. TECHNIQUE: Digital breast tomosynthesis is performed in both the craniocaudal and mediolateral oblique views along with computer-aided detection (CAD). Synthesized 2D images are generated from the tomosynthesis. FINDINGS: The breasts are almost entirely fatty (ACR BI-RADS breast composition Category a). There are no significant masses, abnormal calcifications, or other abnormalities. MM/MM tomosynthesis screening BI IMPRESSION: No mammographic evidence of malignancy. ASSESSMENT: BI-RADS BI-RADS 1 - Negative RECOMMENDATION: Routine annual mammography screening. 1 year F/U This examination should not preclude the clinical evaluation of a suspicious palpable abnormality. This patient's information was entered into a reminder system with a target due date for their next mammogram. Dictated By: Nydia Flores MD Signed By: <Electronically signed by Nydia Flores MD in OV> 01/08/24 1338 DD/ 1110 TD/TT: Tradeshow Worker: us Isabel Lewis DO IMG BI PROCEDURES Final Resu lt * Hepatitis Panel, General (04/24/2023 10:28 AM EST) Hepatitis A IgM Nonreactive Nonreactive [facility] Comment:IgM antibodies to RUBIO V not detected; does not exclude earlyacute or recovered HAV infection. ~Hepatitis B Surface Antibody NONREACTIVE Nonreactive [facility] Comment:Nonreactive: < 8.00 mIU/mL Hepatitis B Core Antibody Nonreactive Nonreactive [facility] Hepatitis C Antibody Nonreactive Nonreactive [facility] Comment:Antibodies to HCV no t detected; does not exclude early acuteHCV infection. Hepatitis B Surface Ag Negative Negative [facility] 04/24/2023 10:2 8 AM EST 04/24/2023 10:28 AM EST us Generic External Data Provider LAB BLOOD ORDERAB LES Final Result [facility] [address] [place] [phone] * HPV mRNA E6/E7 w/Reflex to HPV Genotypes 16, 18/45 (02/15/2023 12:49 PM EDT) HPV nRNA E6/E7 Not Detected Not Detected [facility] Comment:Methodology: Transcr iption-Mediated AmplificationThis assay detects E6/E7 viral messenger RNA (mRNA) from 14high-risk HPV types (16,18,31,33,35,39,45,51,52,56,58,59,66,68).Cervical sources are required for HPV testing.If a vaginal source from a patient who has had atotal hysterectomy with removal of cervix wassubmitted, please contact the testing laboratoryfor alternative testing options.For additional information, please refer tohttp://education.Wakie/faq/OIA408a4(This link if provided for information/educational purposes only.)THIS TEST WAS PERFORMED AT:[address] [place] [phone] SERRANO MD HPV mRNA E6/E7 TNP [facility] HPV 16 RNA [facility] HPV 18/45 RNA [facility] 02/15/2023 12:4 9 PM EDT 02/18/2023 9:30 AM EDT us Isabel Lewis DO LAB CYTOLOGY ORDERABLES Shilpi cheek Result [facility] [address] [place] [phone] * Pap Smear (02/15/2023 12:49 PM EDT) 02/15/2023 12:4 9 PM EDT 02/18/2023 9:30 AM EDT Narrative [facility] - 02/26/2023 1:59 PM EDT ----- ------- Name: Ramona Suarez ? Age/Sex: 53/F ? : 1970 Unit#: [id number] ?? Attend Dr: Isabel Lewis DO ?Re02/15/23 ?Status: DEP REF ? Location: HO.HHCLNP ? Disch: ? ----- ------- SPEC : [id number] ?RECD: 02/18/23 ? STATUS: ??SOUT ? REQ NUM: [id number] ? RADHA: 02/15/23-1243 ? SUBM DR: Isabel Lewis DO ? ENTERED: ??02/18/23-1144 ?SP TYPE: Pap Smr ?OTHR DR: ? ORDERED: ??Pap Smear ? Interpretation ?? Satisfactory for evaluation. ?? Negative for intraepithelial lesion or malignancy. ? HPV mRNA E6/E7: ?NOT DETECTED ? This assay detects E6/E7 viral messenger RNA (mRNA) from 14 high-risk HPV types (16, 18, ?? 31, 33, 35, 39, 45, 51, 52, 56, 58, 59, 66, 68) ? HPV testing performed by [facility], [place], [place]. ??See reference laboratory ?? portion of the EMR for entire report. ?Clinical Information LMP: Unknown date Previous PAP test: Unknown date/findings ? Material Received ?? ThinPrep-Vaginal/Cervical ----- ------- Signed (signature on file) Geri Cuba Shaneka 02/26/23 [id number] ? ----- ------- ? END OF REPORT ? us Isabel Lewis DO LAB CYTOLOGY ORDERABLES Shilpi cheek Result [facility] [address] [place] [phone] * (ABNORMAL) Lipid Panel, Standard (10/10/2022 10:20 AM EDT) Cholesterol, Total 128 <200 mg/dL [facility] HDL Cholesterol 45(L) > OR = 50 mg/dL [facility] Triglycerides 137 <150 mg/dL [facility] LDL Cholesterol 61 mg/dL (calc) [facility] Comment: Reference range: <100 Desirable range <100 mg/dL for primary prevention; ?? <70 mg/dL for patients with CHD or diabetic patients with > or = 2 CHD risk factors. LDL-C is now calculated using the Екатерина calculation, which is a validated novel method providing better accuracy than the Friedewald equation in the estimation of LDL-C. Blaine SS et al. CHLOE. 2013;310(19): 3938-1337 (http://education.SunLink/faq/BWL608) Chol/HDLC Ratio 2.8 <5.0 (calc) [facility] Non-HDL Cholesterol 83 <130 mg/dL (calc) [facility] Comment: For patients with diabetes plus 1 major ASCVD risk factor, treating to a non-HDL-C goal of <100 mg/dL (LDL-C of <70 mg/dL) is considered a therapeutic option. Blood Venous blood specimen / Unknown 10/10/2022 10:20 AM EDT 10/10/2022 10:20 AM EDT Narrative [facility] - 10/10/2022 11:04 PM EDT PATIENT UNABLE TO VOID; ADVISED TO RETURN FOR COLLECTION. us Isabel Lewis DO LAB BLOOD ORDERABLES Final R esult [facility] [address], [place] [phone] [facility] [address] [place] [phone] * ALBUMIN, RANDOM URINE W/CREATININE (01/18/2020 11:16 AM EDT) Creatinine, Urine 164 20 - 275 mg/dL [facility] Microalbumin Urine 1.7 See Note: mg/dL [facility] Comment: Reference Range: ?? Reference Range Not established Microalb/Creat Ratio 10 <30 mcg/mg creat [facility] Comment: ?? The ADA defines abnormalities in albumin excretion as follows: ?? Category ? Result (mcg/mg creatinine) ?? Normal ?<30 Microalbuminuria ? 30-299 ?? Clinical albuminuria ?? > OR = 300 ?? The ADA recommends that at least two of three specimens collected within a 3-6 month period be abnormal before considering a patient to be within a diagnostic category. 01/18/2020 11:1 6 AM EDT Isabel Lewis DO LAB URINE ORDERABLES Final R esult [facility] [address] * HIV 1/2 ANTIGEN/ANTIBODY,FOURTH GENERATION W/RFL (01/18/2020 11:16 AM EDT) Pathologist [facility] [place] HIV-1/2 ANTIGEN AND ANTIBODIES, 4TH GENERATION W/ REFLEX NON-REACT [place] NON-REACT CHINA [facility] Comment: HIV-1 antigen and HIV-1/HIV-2 antibodies were not detected. There is no laboratory evidence of HIV infection. ?? PLEASE NOTE: This information has been disclosed to you from records whose confidentiality may be protected by state law. ??If your state requires such protection, then the state law prohibits you from making any further disclosure of the information without the specific written consent of the person to whom it pertains, or as otherwise permitted by law. A general authorization for the release of medical or other information is NOT sufficient for this purpose. ? For additional information please refer to http://education.PrivacyStar.Storify/faq/BCV776 (This link is being provided for informational/ educational purposes only.) ? The performance of this assay has not been clinically validated in patients less than 2 years old. ?? HIV-1/2 ANTIGEN AND ANTIBODIES, 4TH GENERATION W/ REFLEX NON-REACT [place] NON-REACT [facility] Comment: HIV-1 antigen and HIV-1/HIV-2 antibodies were not detected. There is no laboratory evidence of HIV infection. ?? PLEASE NOTE: This information has been disclosed to you from records whose confidentiality may be protected by state law. ??If your state requires such protection, then the state law prohibits you from making any further disclosure of the information without the specific written consent of the person to whom it pertains, or as otherwise permitted by law. A general authorization for the release of medical or other information is NOT sufficient for this purpose. ? For additional information please refer to http://Dezide.Wakie/faq/NOB108 (This link is being provided for informational/ educational purposes only.) ? The performance of this assay has not been clinically validated in patients less than 2 years old. ?? HIV-1/2 ANTIGEN AND ANTIBODIES, 4TH GENERATION W/ REFLEX NON-REACT [place] NON-REACT [facility] Comment: HIV-1 antigen and HIV-1/HIV-2 antibodies were not detected. There is no laboratory evidence of HIV infection. ?? PLEASE NOTE: This information has been disclosed to you from records whose confidentiality may be protected by state law. ??If your state requires such protection, then the state law prohibits you from making any further disclosure of the information without the specific written consent of the person to whom it pertains, or as otherwise permitted by law. A general authorization for the release of medical or other information is NOT sufficient for this purpose. ? For additional information please refer to http://Dezide.Wakie/faq/DQB557 (This link is being provided for informational/ educational purposes only.) ? The performance of this assay has not been clinically validated in patients less than 2 years old. ?? HIV-1/2 ANTIGEN AND ANTIBODIES, 4TH GENERATION W/ REFLEX NON-REACT [place] NON-REACT [facility] Comment: HIV-1 antigen and HIV-1/HIV-2 antibodies were not detected. There is no laboratory evidence of HIV infection. ?? PLEASE NOTE: This information has been disclosed to you from records whose confidentiality may be protected by state law. ??If your state requires such protection, then the state law prohibits you from making any further disclosure of the information without the specific written consent of the person to whom it pertains, or as otherwise permitted by law. A general authorization for the release of medical or other information is NOT sufficient for this purpose. ? For additional information please refer to http://Dezide.Wakie/faq/BNS876 (This link is being provided for informational/ educational purposes only.) ? The performance of this assay has not been clinically validated in patients less than 2 years old. ?? HIV-1/2 ANTIGEN AND ANTIBODIES, 4TH GENERATION W/ REFLEX NON-REACT [place] NON-REACT [place] [facility] Comment: HIV-1 antigen and HIV-1/HIV-2 antibodies were not detected. There is no laboratory evidence of HIV infection. ?? PLEASE NOTE: This information has been disclosed to you from records whose confidentiality may be protected by state law. ??If your state requires such protection, then the state law prohibits you from making any further disclosure of the information without the specific written consent of the person to whom it pertains, or as otherwise permitted by law. A general authorization for the release of medical or other information is NOT sufficient for this purpose. ? For additional information please refer to http://Dezide.Wakie/faq/DJX378 (This link is being provided for informational/ educational purposes only.) ? The performance of this assay has not been clinically validated in patients less than 2 years old. ?? HIV-1/2 ANTIGEN AND ANTIBODIES, 4TH GENERATION W/ REFLEX NON-REACT [place] NON-REACT [place] [facility] Comment: HIV-1 antigen and HIV-1/HIV-2 antibodies were not detected. There is no laboratory evidence of HIV infection. ?? PLEASE NOTE: This information has been disclosed to you from records whose confidentiality may be protected by state law. ??If your state requires such protection, then the state law prohibits you from making any further disclosure of the information without the specific written consent of the person to whom it pertains, or as otherwise permitted by law. A general authorization for the release of medical or other information is NOT sufficient for this purpose. ? For additional information please refer to http://Dezide.Wakie/faq/VKL795 (This link is being provided for informational/ educational purposes only.) ? The performance of this assay has not been clinically validated in patients less than 2 years old. ?? HIV-1/2 ANTIGEN AND ANTIBODIES, 4TH GENERATION W/ REFLEX NON-REACT [place] NON-REACT CHINA [facility] Comment: HIV-1 antigen and HIV-1/HIV-2 antibodies were not detected. There is no laboratory evidence of HIV infection. ?? PLEASE NOTE: This information has been disclosed to you from records whose confidentiality may be protected by state law. ??If your state requires such protection, then the state law prohibits you from making any further disclosure of the information without the specific written consent of the person to whom it pertains, or as otherwise permitted by law. A general authorization for the release of medical or other information is NOT sufficient for this purpose. ? For additional information please refer to http://Dezide.Wakie/faq/WDF180 (This link is being provided for informational/ educational purposes only.) ? The performance of this assay has not been clinically validated in patients less than 2 years old. ?? 01/18/2020 11:1 6 AM EDT Isabel Lewis DO LAB BLOOD ORDERABLES Final R esult [facility] [address] * Hm Colonoscopy (02/12/2019 9:13 AM EDT) Historical Provider HEALTH MAINTENANCE Final Result from Last 3 Months or Most Recently Relevant to Health Maintenance Insurance Care Teams Space Planner Relationship Specialty Start Date End Date Isabel Lewis DO [address] [place] [address] PCP - General Family Medicine 06/03/18 Marti Elder PharmD [address] [place] [address] Pharmacist Internal Medicine 02/22/23 Dimitris Arambula FNP [address] [place] [address] Nurse Practitioner Family Medicine 04/24/23
--- OUTSIDE RECORDS SUMMARY | 2024-07-06 13:32 | XMS_ITS | Encounter Summary ---
Author Organization [employer] Address [address] [place] [address] Care Team Providers Care Advertising Supervisor Name Role Phone Isabel Lewis DO Primary Care Provider [phone] Marti Elder PharmD Unavailable [phone] Dimitris Arambula ACCOUNT TECHNICIAN Unavailable Unavailable Reason for Visit * Reason Onset Date Comments chartprep 06/30/2024 Encounter Details Date Type Department Care Team (Late st Contact Info) Description 06/30/2024 Telephone [facility] [address] [place], [place] [id number] Wendy Hewitt MA chartprep Social History Tobacco Use Types Packs/Day Years [...] encounter Miscellaneous Notes * Telephone Encounter - Wendy Hewitt MA - 06/30/2024 3:55 PM EST Chart Prep Labs: done Images: none Vaccines due: Covid Due, Hep A Due, and Hep B Due Referrals: Not Applicable Screenings: Not Applicable Overdue care gaps: Sbirt, SDOH, and PHQ-9 documented in this encounter Plan of Treatment Upcoming Encounters Date Type Department Care Team (Late st Contact Info) Description 07/23/2024 11:00 AM EST Medication Management [facility] [address] [place] [address] Marti Elder PharmD [address] [place] [address] documented as of this encounter Goals Goal [...] documented as of this encounter Care Teams Advertising Supervisor Relationship Specialty Start Date End Date Isabel Lewis DO [address] [place] [address] PCP - General Family Medicine 06/03/18 Marti Elder PharmD [address] [place] [address] Pharmacist Internal Medicine 02/22/23 Dimitris Arambula FNP [address] [place] [id number] Nurse Practitioner Family Medicine 04/24/23 documented as of this encounter
[2024-07-06 13:49] LABS: MANUAL DIFF FLAG NO
[2024-07-06 13:52] LABS: Basophils Absolute Auto 0.1 X10*3/uL (0.0-0.2); Basophils Percent Auto 0.6 % (0-2); Eosinophils Absolute Auto 0.1 X10*3/uL (0.0-0.4); Eosinophils Percent Auto 0.5 % (0-4); Hematocrit 37.2 % (37.0-47.0); Imm Gran Abs Auto 0.06 X10*3/uL (0.00-0.03); Imm Gran Pct Auto 0.4 % (0.0-0.4); Lymphocytes Absolute Auto 3.4 X10*3/uL (1.2-4.9); Lymphocytes Percent Auto 22.5 % (20-40); Mean Corpuscular HGB Conc 34.9 g/dl (31.0-35.0); Mean Corpuscular Hemoglobin 27.1 pg (27.0-33.0); Mean Corpuscular Volume 77.5 fL (80.0-98.0); Mean Platelet Volume 11.7 fL (9.4-12.3); Monocytes Absolute Auto 0.8 X10*3/uL (0.1-1.2); Monocytes Percent Auto 5.3 % (2-11); Neutrophils Absolute Auto 10.6 x10*3/uL (2.0-8.3); Neutrophils Percent Auto 70.7 % (45-73); Platelet Count 326 X10*3/uL (160-400); Red Cell Distribution Width 14.6 % (11.0-16.0)
[2024-07-06 13:53] LABS: Appearance Urine Clear; Color Urine Yellow; Glucose Urine UA >=1000 mg/dL (Negative); Leukocyte Esterase Urine Negative (Negative); Nitrite Urine Negative (Negative); PH 6.5 (5.0-9.0); UMIC TRIGGER UACC YES; Urine Blood Negative (Negative); Urine Ketones Negative (Negative); Urine Protein Negative (Neg-Trace)
[2024-07-06 14:05] LABS: Bacteria Urine None Seen (None Seen); Hyaline Casts Urine 0-2 /LPF (0-2); RBC Urine 0-2 /HPF (0-2); Squamous Epithelial Cell Urine 0-2 /HPF (0-2); WBC Urine 0-5 /HPF (0-5)
[2024-07-06 14:19] VITALS: BP 95/66; PULSE 93; RESP 18; O2SAT 96
[2024-07-06 14:24] LABS: Troponin-I High Sensitivity 57.1 ng/L (<3.5-17.0)
[2024-07-06 14:27] LABS: Alanine Aminotransferase 15 U/L (0-31); Albumin Level 3.9 g/dL (3.5-5.0); Anion Gap 20 (12-20); Aspartate Amino Transferase 23 U/L (5-31); Bilirubin Total 0.4 mg/dL (0.0-1.0); Blood Urea Nitrogen 14 mg/dL (9-16); Carbon Dioxide 29 mmol/L (22-29); Chloride 84 mmol/L (96-108); Creatinine Clr Calc Pharmacy 49.4; Estimated Glomerular Filt Rate 45; Glucose Random 503 mg/dL (60-115); Potassium 2.5 mmol/L (3.3-5.1); Sodium 130 mmol/L (135-145); Total Protein 7.5 g/dL (6.5-8.0)
[2024-07-06 14:29] LABS: Influenza A PCR NEGATIVE (Negative); Influenza B PCR NEGATIVE (Negative); Resp Syncy Virus RNA Qual PCR NEGATIVE (Negative); SARS COV2 PCR INHOUSE NEGATIVE (Negative)
--- NOTE | 2024-07-06 14:29 | ED_ITS ---
HPI - General Adult General Chief complaint: General Medical Stated complaint: Hyperglycemia, from docs office, no insulin x1 wee Time Seen by Provider: 07/06/24 14:29 Source: patient and EMS Mode of arrival: EMS Limitations: no limitations History of Present Illness ED Provider: Siobhan Stuart PA-C HPI narrative: Patient is a 54 year old assigned female at with a history of DM and RA presenting to the emergency department today with chest pressure and weakness. Patient states that over the last few days she has felt generally unwell with weakness, chest pressure, sore throat, and inability to take her insulin as prescribed. Patient denies any dizziness, lightheadedness, abdominal pain, nausea, vomiting, fever, chills, blurry vision, double vision, loss of vision, difficulty breathing, shortness of breath, back pain, night sweats, pain with urination, increased urinary frequency, increased urinary urgency, blood in her urine or stool, syncope or a near syncopal episode, recent trauma or falls, bowel incontinence, bladder incontinence, or any other complaints at this time. Relieving factors: none Exacerbating factors: none Associated symptoms: chest pain and weakness Treatments prior to arrival: none Related Data Home Medications ?Medication ?Instructions ?Recorded ?Confirmed atorvastatin 10 mg tablet (Lipitor) 10 mg PO BEDTIME 05/19/20 07/06/24 duloxetine 60 mg capsule,delayed 60 mg PO BID 05/01/21 07/06/24 release baclofen 5 mg tablet 5 mg PO TID PRN Muscle Spasm 09/06/21 07/06/24 amitriptyline 10 mg tablet 2 tab PO BEDTIME 10/09/21 07/06/24 calcium 600 mg (as 1 tab PO BID 10/09/21 07/06/24 carbonate)-vitamin D3 10 mcg (400 unit) tablet oxybutynin chloride 5 mg 1 tab PO BEDTIME 10/09/21 07/06/24 tablet,extended release 24 hr pen needle, diabetic 32 gauge x #50 ea 11/06/21 06/26/23 (UltiCare Pen Needle) aripiprazole 20 mg tablet 20 mg PO DAILY 03/01/23 07/06/24 budesonide-formoterol HFA 160 2 puff inhalation BID 03/01/23 07/06/24 mcg-4.5 mcg/actuation aerosol inhaler (Symbicort) buspirone 15 mg tablet 15 mg PO TID 03/01/23 07/06/24 furosemide 80 mg tablet 80 mg PO DAILY 03/01/23 07/06/24 magnesium oxide 400 mg (241.3 mg 400 mg PO DAILY 03/01/23 07/06/24 magnesium) tablet melatonin 5 mg tablet 5 mg PO BEDTIME 03/01/23 07/06/24 multivitamin-iron sulfate 15 1 tab PO DAILY 03/01/23 07/06/24 mg-folic acid 400 mcg tablet (Tab-A-Manjeet Multivitamin w-iron) gabapentin 300 mg capsule 600 mg PO TID 03/04/23 07/06/24 albuterol sulfate 2.5 mg/3 mL 2.5 mg inhalation QID PRN 04/30/23 07/06/24 (0.083 %) solution for nebulization Shortness Of Breath Or Wheezing albuterol sulfate 90 mcg/actuation 2 inh inhalation Q4H PRN Shortness 04/30/23 07/06/24 aerosol inhaler (Ventolin HFA) Of Breath Or Wheezing divalproex 500 mg tablet,extended 500 mg PO BID 04/30/23 07/06/24 release 24 hr insulin degludec 200 unit/mL (3 78 unit subcut DAILY 04/30/23 07/06/24 mL) subcutaneous pen (Tresiba FlexTouch U-200 insulin) meclizine 25 mg tablet 25 mg PO BID PRN Motion 04/30/23 07/06/24 Sickness/Vertigo omeprazole 20 mg capsule,delayed 40 mg PO BID@0630,1630 09/30/23 07/06/24 release riboflavin (vitamin B2) 100 mg 200 mg PO BID 09/30/23 07/06/24 tablet tiotropium bromide 2.5 2 puff inhalation DAILY 11/29/23 07/06/24 mcg/actuation mist for inhalation (Spiriva Respimat) flash glucose sensor (FreeStyle #1 ea 01/20/24 Jt 2 Sensor kit) polyethylene glycol 3350 17 17 g PO DAILY PRN Constipation 01/20/24 07/06/24 gram/dose oral powder quetiapine 200 mg tablet 200 mg PO BEDTIME 01/20/24 07/06/24 empagliflozin 12.5 mg-metformin 1 tab PO BID 06/18/24 07/06/24 1,000 mg tablet (Synjardy) insulin aspart U-100 100 unit/mL See Protocol subcut BIDAC 06/18/24 07/06/24 (3 mL) subcutaneous pen (Novolog FlexPen U-100 Insulin aspart) tirzepatide 12.5 mg/0.5 mL 12.5 mg subcut WE 06/18/24 07/06/24 subcutaneous pen injector (Mounjaro) tocilizumab 162 mg/0.9 mL mg subcut 06/18/24 subcutaneous pen injector (Actemra ACTPen) Previous Rx's ?Medication ?Instructions ?Recorded leg brace #1 ea 03/04/23 Allergies Allergy/AdvReac Type Severity Reaction Status Date / Time sumatriptan [From IMITREX] Allergy Severe SYNCOPE Verified 07/06/24 11:55 Penicillins [PENICILLINS] Allergy Intermediate SHORTNESS Verified 07/06/24 11:55 OF BREATH penicillin V Allergy Unknown swelling, Verified 07/06/24 11:55 rash, pruritis topiramate [From TOPAMAX] AdvReac Severe OVERDOSED Verified 07/06/24 11:55 Review of Systems 2 Constitutional: Constitutional: Reports no additional constitutional complaints, Denies chills, Denies fever(s), Denies night sweats and Reports weakness Eyes: Eyes: Reports no additional eye complaints, Denies blurry vision, Denies change in vision, Denies diplopia, Denies eye discharge, Denies loss of vision and Denies eye pain ENT: Denies dizziness Cardiovascular: Cardiovascular: Reports no additional cardiovascular complaints, Reports chest pain, Denies lightheadedness, Denies Loss of Consciousness and Denies dyspnea Respiratory: Respiratory: Reports no additional respiratory complaints and Denies dyspnea Gastrointestinal: Gastrointestinal: Reports no additional gastrointestinal complaints, Denies abdominal pain, Denies melena, Denies hematochezia, Denies change in bowel habits and Denies change in stool character Genitourinary: Genitourinary: Denies hematuria, Denies urinary frequency, Denies dysuria, Denies urinary incontinence, Denies urinary hesitancy and Denies urinary urgency Musculoskeletal: Musculoskeletal: Reports no additional musculoskeletal complaints, Denies numbness and Denies tingling Neurologic: Denies dizziness, Denies loss of vision, Denies numbness, Denies tingling and Reports weakness Psychiatric: Psychiatric: Reports no additional psychiatric complaints Endocrine: Endocrine: Reports no additional endocrine complaints Hematologic/Lymphatic: Hematologic/Lymphatic: Reports no additional hematologic/lymphatic complaints Allergic/Immunologic: Allergic/Immunologic: Reports no additional allergic/immunologic complaints [facility] Past Medical History Attestation statement: The following information was validated with the patient. Source: old records reviewed and nursing notes reviewed Medical History Osteoarthritis (arthritis due to wear and tear of joints) Major depressive disorder PTSD (post-traumatic stress disorder) CAP (community acquired pneumonia) Fibromyalgia Asthma Chronic mixed headache syndrome Obstructive sleep apnea Diabetes Bipolar disorder Surgical History Hx of colonoscopy Hx of cholecystectomy H/O shoulder surgery Family History Family History Mother Arthritis Asthma Diabetes Social History Social History Alcohol intake: former Patient Tobacco Use Status: Current everyday Tobacco user Cigarettes Per Day: 15 Years Smoked: 45 Smoked in Last 30 Days: Yes Use of substances other than those prescribed or required for medical reasons: Unknown Advance Directives: No Advance Directives Information Provided: Yes service: No Physical Exam ED Vital Signs: Vital Signs - 24 hr 07/06/24 11:53 07/06/24 14:19 Temperature 98.2 F Pulse Rate 97 93 Respiratory Rate 18 18 Blood Pressure 91/67 95/66 Pulse Oximetry 92 96 Oxygen Delivery Method Room Air Room Air BMI result Body Mass Index 29.7 Const General: cooperative, no acute distress, alert and awake Nutritional Appearance: well nourished Orientation/consciousness: patient oriented x3 Limitations: no limitations HENMT Head: Yes normal to inspection and Yes atraumatic Ears: hearing grossly normal bilaterally and external ears normal General nose exam: Normal external nose present, no nasal discharge noted and no epistaxis Face and sinus: Yes normal facial exam, No abrasion and No laceration Mouth: Normal oral and palatal mucosa present, no drooling and no muffled voice Eyes General: appearance normal, both eyes and all related structures Periorbital: periorbital findings normal Eyelids: Yes eyelids normal Conjunctivae: conjunctivae normal Pupils: Equal, round and reactive pupils present EOM: EOMs intact bilaterally Neck Neck: Yes normal visual inspection, Yes full ROM and Yes no lymphadenopathy Chest Chest palpation & inspection: normal inspection of the chest Resp Effort & Inspection: normal respiratory effort and able to speak in complete sentences GI Inspection: Yes normal to inspection Neuro General: patient oriented x3 and moves all extremities Cranial nerves: Yes Equal, round and reactive pupils present Cognition (Neuro): normal cognition Extrem General: Yes normal to inspection, Yes full ROM and Yes capillary refill normal Psych Appearance: grossly normal Mental Status: mental status grossly normal Affect: normal affect Attitude: cooperative Thought process: Normal thought process present Thought content: Normal thought content present Insight: Good insight present (Psych) Medications Administered Generic Name Dose Route Start Last Admin Trade Name Freq PRN Reason Stop Dose Admin Potassium Chloride 10 meq in 100 mls @ 100 mls/hr 07/06/24 14:45 07/06/24 17:09 Potassium Chloride/H20 IV 07/06/24 18:44 100 mls/hr Q1H ADILENE Administration Discontinued Medications Generic Name Dose Route Start Last Admin Trade Name Freq PRN Reason Stop Dose Admin Lactated Ringer's 1,000 mls @ 999 mls/hr 07/06/24 14:45 07/06/24 14:55 Lr IV 07/06/24 15:45 999 mls/hr .Q1H1M ADILENE Administration Potassium Chloride 20 meq 07/06/24 14:38 07/06/24 15:20 Potassium Chloride Er 20 Meq Tab.Er.Prt PO 07/06/24 14:39 20 meq ONCE ONE Administration Potassium Chloride 40 meq 07/06/24 16:12 07/06/24 17:07 Potassium Chloride Er 20 Meq Tab.Er.Prt PO 07/06/24 16:13 40 meq ONCE ONE Administration Medical Decision Making Medical Decision Making [facility] Narrative: Patient is a 54 year old assigned female at with a history of DM and RA presenting to the emergency department today with chest pressure and weakness. Patient's physical exam was unremarkable. Patient's blood work showed WBC of 15, potassium of 2.5, glucose of 503, an initial trop of 57.1 with a 1 hour repeat of 58.9, and beta hydroxy of 1.40. I consulted with the cardiologst who recommended correcting the patient's potassium and repeating the troponin. Warned against using IV insulin as that will further bottom out the patient's potassium. Patient was started in IV LR and 10meq/hr of IV potassium as well as 20meq of Potassium given PO. I spoke to the hospitalist team who agreed to admission. Patient's urine showed no acute process. Patient's EKG was unremarkable. Patient's chest x-ray showed evidence of pulmonary edema. I explained my physical exam findings as well as all test results to the patient. I answered all questions asked by the patient. Patient verbalized agreement and understanding with this treatment plan and admission. Differential Diagnosis Differential Diagnoses: The differential diagnosis associated with the presentation includes Hyperglycemia DKA Weakness Hypokalemia STEMI NSTEMI Admission/Observation Consideration of admission/observation: Escalation of care including admission/observation considered Patient admitted as noted in the MDM Rationale portion of this note. Consult Healthcare Provider Management of the patient was discussed with: Hospitalist (agreed to admission as noted in the MDM Rationale portion of this note.) and Weapons Designer (consulted with the police reserves commander on site nurse as noted in the MDM Rationale portion of this note.) Lab Data [facility] Lab Attestation statement: I reviewed the patient's lab results. My interpretation of these results are in the MDM Rationale portion of this note. 07/06/24 13:41 07/06/24 13:41 Labs: Lab Results 07/06/24 07/06/24 07/06/24 Range/Units 13:41 14:51 16:08 WBC 15.0 H (4.8-10.8) X10*3/uL RBC 4.80 D (4.20-5.50) X10*6/uL Hgb 13.0 D (12.0-16.0) g/dl Hct 37.2 D (37.0-47.0) % MCV 77.5 L (80.0-98.0) fL MCH 27.1 (27.0-33.0) pg MCHC 34.9 (31.0-35.0) g/dl RDW 14.6 (11.0-16.0) % Plt Count 326 (160-400) X10*3/uL MPV 11.7 (9.4-12.3) fL Immature Gran % (Auto) 0.4 (0.0-0.4) % Neut % (Auto) 70.7 (45-73) % Lymph % (Auto) 22.5 (20-40) % Ross % (Auto) 5.3 (2-11) % Eos % (Auto) 0.5 (0-4) % Baso % (Auto) 0.6 (0-2) % Lymph # (Auto) 3.4 (1.2-4.9) X10*3/uL Ross # (Auto) 0.8 (0.1-1.2) X10*3/uL Eos # (Auto) 0.1 (0.0-0.4) X10*3/uL Baso # (Auto) 0.1 (0.0-0.2) X10*3/uL Abs Immat Gran (auto) 0.06 H (0.00-0.03) X10*3/uL Absolute Neuts (auto) 10.6 H (2.0-8.3) x10*3/uL Absolute Nucleated RBC 0.000 (0.0-0.012) X10*3/uL Nucleated RBC % (auto) 0.0 (0.0-0.2) /100WBC PT 11.6 (10.9-12.4) SEC INR 1.0 (0.9-1.1) APTT 26.2 (26.0-36.8) SEC Sodium 130 L (135-145) mmol/L Potassium 2.5 L* (3.3-5.1) mmol/L Chloride 84 L D (96-108) mmol/L Carbon Dioxide 29 (22-29) mmol/L Anion Gap 20 (12-20) BUN 14 (9-16) mg/dL Creatinine 1.24 (0.5-1.4) mg/dL Estim Creat Clear Calc 49.4 Estimated GFR 45 POC Glucose 529 H* (60-115) mg/dL Random Glucose 503 H* (60-115) mg/dL Calcium 10.0 D (8.4-10.2) mg/dL Magnesium 2.0 (1.6-2.6) mg/dL Total Bilirubin 0.4 (0.0-1.0) mg/dL AST 23 (5-31) U/L ALT 15 (0-31) U/L Troponin I High Sens 57.1 H* D 58.9 H* (<3.5-17.0) ng/L Total Protein 7.5 (6.5-8.0) g/dL Albumin 3.9 (3.5-5.0) g/dL Beta-Hydroxybutyrate 1.40 H (0.02-0.27) mmol/L Urine Color Yellow Urine Appearance Clear Urine pH 6.5 (5.0-9.0) Ur Specific [place] 1.020 (1.005-1.025) Urine Protein Negative (Neg-Trace) mg/dL Urine Glucose (UA) >=1000 H (Negative) mg/dL Urine Ketones Negative (Negative) mg/dL Urine Blood Negative (Negative) Urine Nitrite Negative (Negative) Ur Leukocyte Esterase Negative (Negative) Urine RBC 0-2 (0-2) /HPF Urine WBC 0-5 (0-5) /HPF Ur Squamous Epith Cells 0-2 (0-2) /HPF Urine Bacteria None Seen (None Seen) Hyaline Casts 0-2 (0-2) /LPF Influenza Type A (PCR) NEGATIVE (Negative) Influenza Type B (PCR) NEGATIVE (Negative) RSV RNA Qual (PCR) NEGATIVE (Negative) SARS-CoV-2 RNA (RT-PCR) NEGATIVE (Negative) Independent Interpretation I performed an independent interpretation of an: EKG and Plain X-Ray Interpretation: My interpretation is in agreement with the radiologist's impression of this imaging study. L EXAMINATION: XR CHEST CLINICAL INFORMATION: chest pain COMPARISON: June 18, 2024 TECHNIQUE: Frontal view of the chest was obtained. FINDINGS: Indistinct margins in the pulmonary hilum and prominence of the interstitial markings. No pleural effusion. No pneumothorax. Osseous structures are intact. XR/XR chest 1V IMPRESSION: Pulmonary edema in the correct clinical settings. Electronically signed by: Joey Camarillo MD 07/06/2024 02:42 PM [facility] Dictated By: Joey Robles MD Signed By: Electronically signed by Joey Andrade MD 07/06/24 1442 Vent. Rate: 97 BPM Atrial Rate: 97 BPM P-R Int: 134 ms QRS Dur: 88 ms QT Int: 444 ms P-R-T Axes: 44 21 63 degrees QTcB Int: 563 ms Normal sinus rhythm Possible Left atrial enlargement ST depression, consider subendocardial injury Nonspecific T wave abnormality Prolonged QT When compared with ECG of 18-Jun-2024 15:01, ST now depressed in Anterolateral leads T wave inversion now evident in Anterior leads QT has lengthened Referred By: Siobhan Stuart Electronically Signed By: Wilbur Cervantes Dictated By: Wilbur Cervantes MD Signed By: Electronically signed by Wilbur Cervantes MD 07/06/24 [id number] Radiology Impression Discussion of test interpretation with radiology: I have reviewed the radiologist's reading. Independent Historian Clinical information obtained from an independent historian. History obtained from or confirmed by: EMS (EMS provided additional history and confirmed the history provided by the patient.) Chronic Conditions Patient?s care impacted by: Diabetes Critical Care Time Critical Care Time Critical Care Time: Yes Total Critical Care Time: 39 Attestation: I spent 39 minutes of Critical Care Time with this patient. This does not include time spent on separately reported billable procedures. Discharge Plan Discharge Clinical Impression: Acute hyperglycemia, Acute hypokalemia Patient Disposition: Admitted As Inpatient
[2024-07-06] MEDS: Lactated Ringers 1,000 ML 999 ML IV (14:55)
[2024-07-06 15:08] LABS: Prothrombin Time 11.6 SEC (10.9-12.4)
[2024-07-06 15:11] LABS: Partial Thromboplastin Time 26.2 SEC (26.0-36.8)
[2024-07-06] MEDS: Potassium Chloride/H20 10 MEQ/100 ML PIGGYBACK 100 MEQ IV ×3 (15:19→19:22)
[2024-07-06] MEDS: Potassium Chloride ER 20 MEQ TAB.ER.PRT PO ×2 (15:20→19:21)
[2024-07-06 15:24] LABS: Troponin-I High Sensitivity 58.9 ng/L (<3.5-17.0)
[2024-07-06 16:11] LABS: Glucose, Whole Blood 529 mg/dL (60-115)
--- NOTE | 2024-07-06 16:17 | P.HPHOSP_ITS ---
History of Present Illness Date of Service: 07/06/24 Chief Complaint: sob 54 year old women presenting to the emergency department today with chest pressure and weakness since her discharge on 06/19/24. She reported feeling unwell since then with substernal chest pressure with no radiation or other associated symptoms, She described feeling cold from her feet to her hands, but not actually being cold . Patient states that over the last few days she has felt generally unwell. Patient denies any dizziness, lightheadedness, abdominal pain, nausea, vomiting, fever, chills, blurry vision, double vision, loss of vision, difficulty breathing, shortness of breath, back pain, night sweats, pain with urination, increased urinary frequency, increased urinary urgency, blood in her urine or stool, syncope or a near syncopal episode, recent trauma or falls, bowel incontinence, bladder incontinence, or any other complaints at this time. in the ED, UA neg, cxr without consolidation, potassium 2.5, sodium 130, BS 503. Patient received 5 units of IVP insulin, 20 meq of potassium, LR. She will be admitted for further management and treatment of hyperglycemia and electrolyte abnormalities. Review of Systems 2 Review of Systems: Denies any recent fever chills or decrease in appetite respiratory denies any shortness of breath or cough cardiovascular See HPI gastrointestinal denies any dysphagia abdominal pain nausea vomiting or diarrhea genitourinary denies any dysuria frequency or hematuria musculoskeletal denies any joint pain or swelling neuropsych denies any weakness or seizures all other systems reviewed are negative [facility] Medical History Osteoarthritis (arthritis due to wear and tear of joints) Major depressive disorder PTSD (post-traumatic stress disorder) CAP (community acquired pneumonia) Fibromyalgia Asthma Chronic mixed headache syndrome Obstructive sleep apnea Diabetes Bipolar disorder Family History Mother Arthritis Asthma Diabetes Surgical History Hx of colonoscopy Hx of cholecystectomy H/O shoulder surgery Social History Household Members: Spouse Housing: Apartment Do you presently have visiting nurse or other home services: Yes Alcohol intake: former Patient Tobacco Use Status: Current everyday Tobacco user Tobacco use type: Cigarette Cigarettes Per Day: 12 Years Smoked: 45 Smoked in Last 30 Days: Yes Use of substances other than those prescribed or required for medical reasons: No Currently Displaying Signs/Symptoms of Drug Intoxication Withdrawal: No Have you been hit, kicked, punched, or otherwise hurt by someone within the past year? If so, by whom?: No Do you feel safe in your current relationship?: Yes Is there a partner from a previous relationship who is making you feel unsafe now?: No Are you made to feel afraid or neglected: No Advance Directives: No Advance Directives Information Provided: Yes Do you have a plan to hurt others: No Plan Recently lost weight without trying: Yes How much weight loss: Unsure Eating poorly because of decreased appetite: Yes Nutrition screen score: 5 Nutrition Risks: Poor intake 0-25% >4 days Patient : No : No Poor oral hygiene: No service: No Meds Allergies Allergy/AdvReac Type Severity Reaction Status Date / Time sumatriptan [From IMITREX] Allergy Severe SYNCOPE Verified 07/06/24 11:55 Penicillins [PENICILLINS] Allergy Intermediate SHORTNESS Verified 07/06/24 11:55 OF BREATH penicillin V Allergy Unknown swelling, Verified 07/06/24 11:55 rash, pruritis topiramate [From TOPAMAX] AdvReac Severe OVERDOSED Verified 07/06/24 11:55 Active Medications: Current Medications Potassium Chloride (Potassium Chloride/H20) 10 meq in 100 mls @ 100 mls/hr IV Q1H [facility] Stop: 07/06/24 18:44 Last Admin: 07/06/24 15:19 Dose: 100 mls/hr Sodium Chloride (Ns) 1,000 mls @ 999 mls/hr IVCONT .Q1H1M [facility] Stop: 07/06/24 18:15 Potassium Chloride (Potassium Chloride Er 20 Meq Tab.Er.Prt) 40 meq PO ONCE ONE Stop: 07/06/24 16:13 Home Medications ?Medication ?Instructions ?Recorded ?Confirmed ?Last Taken ?Type atorvastatin 10 mg tablet (Lipitor) 10 mg PO BEDTIME 05/19/20 07/06/24 1 Week Ago History ~06/29/24 duloxetine 60 mg capsule,delayed 60 mg PO DAILY 05/01/21 07/06/24 1 Week Ago History release ~06/29/24 baclofen 5 mg tablet 5 mg PO TID PRN Muscle Spasm 09/06/21 07/06/24 06/18/24 History amitriptyline 10 mg tablet 2 tab PO BEDTIME 10/09/21 07/06/24 1 Week Ago History ~06/29/24 calcium 600 mg (as 1 tab PO BID 10/09/21 07/06/24 1 Week Ago History carbonate)-vitamin D3 10 mcg (400 ~06/29/24 unit) tablet oxybutynin chloride 5 mg 1 tab PO BEDTIME 10/09/21 07/06/24 1 Week Ago History tablet,extended release 24 hr ~06/29/24 pen needle, diabetic 32 gauge x #50 ea 11/06/21 06/26/23 Unknown History (UltiCare Pen Needle) aripiprazole 20 mg tablet 20 mg PO DAILY 03/01/23 07/06/24 1 Week Ago History ~06/29/24 budesonide-formoterol HFA 160 2 puff inhalation BID 03/01/23 07/06/24 1 Week Ago History mcg-4.5 mcg/actuation aerosol ~06/29/24 inhaler (Symbicort) buspirone 15 mg tablet 15 mg PO TID 03/01/23 07/06/24 1 Week Ago History ~06/29/24 furosemide 80 mg tablet 80 mg PO DAILY 03/01/23 07/06/24 1 Week Ago History ~06/29/24 magnesium oxide 400 mg (241.3 mg 400 mg PO DAILY 03/01/23 07/06/24 1 Week Ago History magnesium) tablet ~06/29/24 melatonin 5 mg tablet 10 mg PO BEDTIME 03/01/23 07/06/24 1 Week Ago History ~06/29/24 multivitamin-iron sulfate 15 1 tab PO DAILY 03/01/23 07/06/24 1 Week Ago History mg-folic acid 400 mcg tablet ~06/29/24 (Tab-A-Manjeet Multivitamin w-iron) gabapentin 300 mg capsule 600 mg PO TID 03/04/23 07/06/24 1 Week Ago History ~06/29/24 albuterol sulfate 2.5 mg/3 mL 2.5 mg inhalation QID PRN 04/30/23 07/06/24 Unknown History (0.083 %) solution for nebulization Shortness Of Breath Or Wheezing albuterol sulfate 90 mcg/actuation 2 inh inhalation Q4H PRN Shortness 04/30/23 07/06/24 Unknown History aerosol inhaler (Ventolin HFA) Of Breath Or Wheezing divalproex 500 mg tablet,extended 500 mg PO BID 04/30/23 07/06/24 1 Week Ago History release 24 hr ~06/29/24 insulin degludec 200 unit/mL (3 78 unit subcut DAILY 04/30/23 07/06/24 1 Week Ago History mL) subcutaneous pen (Tresiba ~06/29/24 FlexTouch U-200 insulin) meclizine 25 mg tablet 25 mg PO BID PRN Motion 04/30/23 07/06/24 Unknown History Sickness/Vertigo omeprazole 20 mg capsule,delayed 40 mg PO BID@0630,1630 09/30/23 07/06/24 1 Week Ago History release ~06/29/24 riboflavin (vitamin B2) 100 mg 200 mg PO BID 09/30/23 07/06/24 1 Week Ago History tablet ~06/29/24 tiotropium bromide 2.5 2 puff inhalation DAILY 11/29/23 07/06/24 1 Week Ago History mcg/actuation mist for inhalation ~06/29/24 (Spiriva Respimat) flash glucose sensor (FreeStyle #1 ea 01/20/24 Unknown History Jt 2 Sensor kit) polyethylene glycol 3350 17 17 g PO DAILY PRN Constipation 01/20/24 07/06/24 06/18/24 History gram/dose oral powder quetiapine 200 mg tablet 200 mg PO BEDTIME 01/20/24 07/06/24 1 Week Ago History ~06/29/24 empagliflozin 12.5 mg-metformin 1 tab PO BID 06/18/24 07/06/24 1 Week Ago History 1,000 mg tablet (Synjardy) ~06/29/24 insulin aspart U-100 100 unit/mL See Protocol subcut BIDAC 06/18/24 07/06/24 1 Week Ago History (3 mL) subcutaneous pen (Novolog ~06/29/24 FlexPen U-100 Insulin aspart) tirzepatide 12.5 mg/0.5 mL 12.5 mg subcut WE 06/18/24 07/06/24 06/24/24 History subcutaneous pen injector (Mounjaro) tocilizumab 162 mg/0.9 mL mg subcut 06/18/24 Unknown History subcutaneous pen injector (Actem ACTPen) Physical Exam 2 Vital Signs and Narrative: Vital Signs: Last Vital Signs Temp 98.2 F 07/06/24 11:53 Pulse 93 07/06/24 14:19 Resp 18 07/06/24 14:19 BP 95/66 07/06/24 14:19 Pulse Ox 96 07/06/24 14:19 O2 Del Method Room Air 07/06/24 14:19 BMI result Body Mass Index 29.7 Appearing in no acute distress head is normocephalic atraumatic eyes pupils are PERRLA sclera is anicteric mouth throat mucous membranes are intact and moist neck is supple no lymphadenopathy, no JVD noted lung sounds are clear to auscultation heart regular rate rhythm, clear S1, S2 positive bowel sounds, abdomen is soft, nontender neuro patient is alert x3, no focal deficits Results Labs 07/07/24 06:18 07/08/24 06:48 Labs: Laboratory Results - last 24 hr 07/06/24 07/06/24 07/06/24 13:41 14:51 16:08 MCV 77.5 L MCH 27.1 MCHC 34.9 RDW 14.6 Plt Count 326 MPV 11.7 Immature Gran % (Auto) 0.4 Neut % (Auto) 70.7 Lymph % (Auto) 22.5 [place] % (Auto) 5.3 Eos % (Auto) 0.5 Baso % (Auto) 0.6 Lymph # (Auto) 3.4 [place] # (Auto) 0.8 Eos # (Auto) 0.1 Baso # (Auto) 0.1 Abs Immat Gran (auto) 0.06 H Absolute Neuts (auto) 10.6 H Absolute Nucleated RBC 0.000 Nucleated RBC % (auto) 0.0 PT 11.6 INR 1.0 APTT 26.2 Anion Gap 20 Estim Creat Clear Calc 49.4 Estimated GFR 45 POC Glucose 529 H* Random Glucose 503 H* Calcium 10.0 D Magnesium 2.0 Total Bilirubin 0.4 AST 23 ALT 15 Troponin I High Sens 57.1 H* D 58.9 H* Total Protein 7.5 Albumin 3.9 Beta-Hydroxybutyrate 1.40 H Urine Color Yellow Urine Appearance Clear Urine pH 6.5 Ur Specific [place] 1.020 Urine Protein Negative Urine Glucose (UA) >=1000 H Urine Ketones Negative Urine Blood Negative Urine Nitrite Negative Ur Leukocyte Esterase Negative Urine RBC 0-2 Urine WBC 0-5 Ur Squamous Epith Cells 0-2 Urine Bacteria None Seen Hyaline Casts 0-2 Influenza Type A (PCR) NEGATIVE Influenza Type B (PCR) NEGATIVE RSV RNA Qual (PCR) NEGATIVE SARS-CoV-2 RNA (RT-PCR) NEGATIVE Imaging Radiologist's Impressions: Impressions Chest X-Ray 07/06/24 14:31 IMPRESSION: Pulmonary edema in the correct clinical settings. Electronically signed by: Joey Camarillo MD 07/06/2024 02:42 PM [facility] Assessment and Plan (1) Uncontrolled diabetes mellitus with hyperglycemia: Status: Acute Plan 54 year old women admitted with weakness, chest pressure and hyperglycemia Weakness ua neg, cxr no consolidation, RSV, Covid, flu neg, no fever, +leukocytosis normal LFT's check RPP blood cx Diabetes Mellitus 2 with hyperglycemia non anion gap elevated BHB allow hypokalemia to correct before aggressive BS control SS, ADA Diet check VBG IV fluids Hypokalemia IV and po replacement Hyponatremia likely related to hyperglycemia and poor po intake IV fluids Chest pressure Troponin flat 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
--- NOTE | 2024-07-06 16:41 | PHA.MEDREC ---
Addendum entered by Billy Azul RPh 07/06/24 18:04: Med rec was reviewed by [facility]. I went to talk to patient and she confirmed she uses 40 units of novolog bid, duloxetine 60 mg daily and melatonin 10 mg at bedtime. Original Note: Pharmacy Consult ? Medication Reconciliation Pharmacy has completed the medication reconciliation. Spoke with patient and she confirmed her medications; patient also has son and daughter at bedside. Patient confirmed her Novolog FlexPen U-100 Insulin and confirmed she only tests twice daily before meals and states she usually only breakfast and dinner and does not typically eat lunch. She also confirmed the Tresiba FlexTouch U-200 injection and confirmed she is injecting 78 units daily of that. She did not remember if she was taking the Leflunomide 20mg tab and I asked if she was taking anything for rheumatoid arthritis and the patient stated she was not at this time. The patients son at bedside stated she got the Nicotine patches at home but stated she never started them. The patient confirmed she started the Prednisone 20mg regimen but states she stopped that herself yesterday due to her sugars being high. She confirmed the Monjaro 12.5 mg/0.5 mL injection once a week and confirmed she takes it on Wednesdays but has not taken since Saturday 06/24. Patient confirmed she is receiving the Actemra ACTPen 162 mg/0.9 mL injection from her Cancer [facility] at the [facility] here at [facility], the paitent was not sure the dose of what she gets or the last time or next time she is suppose to get it. Her son at bedside stated she has not taken any medications in about a week due to how the patient has been.
[2024-07-06 16:45] VITALS: BP 112/76; PULSE 92; RESP 17; TEMP 36.9; O2SAT 93
[2024-07-06] MEDS: Potassium Chloride ER 20 MEQ TAB.ER.PRT 40 MEQ PO ×2 (17:07→19:21)
[2024-07-06 17:14] LABS: VBG HCO3 36 mmol/L (22-26); VBG pCO2 42 mmHg; VBG pH 7.53 (7.32-7.43); VBG pO2 66 mmHg
[2024-07-06 17:16] LABS: Venous Blood Gas Refer to POC result
[2024-07-06 17:17] LABS: IDNOW Serial# 58CA691E; Strep A Nucleic Acid Negative (Negative)
[2024-07-06 17:36] LABS: B Type Natriuretic Peptide 193 pg/mL (<100)
[2024-07-06 17:36] LABS: Alkaline Phosphatase 193 U/L (39-117)
--- NOTE | 2024-07-06 17:45 | PC.NURSE ---
report was taken from previous rn @ 1500 pt has been receiving IV K with LR running to keep her iv site pain free. lr is going slowly pt has clear ls in all gregg and has remained in NSR on the monitor pt has been up to commode with assistannce.
[2024-07-06 17:54] LABS: Anion Gap 17 (12-20); Blood Urea Nitrogen 14 mg/dL (9-16); Calcium 9.1 mg/dL (8.4-10.2); Carbon Dioxide 30 mmol/L (22-29); Chloride 84 mmol/L (96-108); Creatinine Clr Calc Pharmacy 51.1; Estimated Glomerular Filt Rate 46; Glucose Random 484 mg/dL (60-115); Potassium 2.7 mmol/L (3.3-5.1); Sodium 128 mmol/L (135-145)
[2024-07-06] MEDS: Heparin Sodium,Porcine 5,000 UNIT/ML VIAL 5000 UNIT SUBCUT (19:35)
--- NOTE | 2024-07-06 19:35 | PC.NURSE ---
Admitted from ED to 484, PEPE dexter , DR Hernandez ordered to held IV fluids NS 2 liters , Pt is refusing Blood cultures at this time d/t pain during blood draw , Phlebotomy is coming at 21:00 to due BMP and pt will decide about blood cultures
[2024-07-06 19:55] VITALS: BP 106/66; PULSE 92; RESP 18; TEMP 36.8; O2SAT 97
[2024-07-06 20:59] LABS: Glucose, Whole Blood 445 mg/dL (60-115)
[2024-07-06 21:41] LABS: Anion Gap 18 (12-20); Blood Urea Nitrogen 14 mg/dL (9-16); Calcium 9.1 mg/dL (8.4-10.2); Carbon Dioxide 28 mmol/L (22-29); Chloride 87 mmol/L (96-108); Creatinine Clr Calc Pharmacy 54.2; Estimated Glomerular Filt Rate 50; Glucose Random 445 mg/dL (60-115); Potassium 3.6 mmol/L (3.3-5.1); Sodium 129 mmol/L (135-145)
--- NOTE | 2024-07-06 22:19 | PC.NURSE ---
Pt adamant that IV potassium be stopped at 2014 due to pain with infusion. Rate had been decreased to 25 ml/hr few minutes after start of administration. MD aware of pt refusal of IV potassium.
[2024-07-06] MEDS: Melatonin 3 MG TABLET 6 MG PO (22:29)
[2024-07-06] MEDS: Insulin Glargine,Hum.rec.anlog 100 UNIT/ML 10 ML VIAL 15 UNIT SUBCUT (22:29)
[2024-07-06] MEDS: 0.9 % Sodium Chloride Flush 3 ML SYRINGE IVFLUSH (22:32)
[2024-07-06] MEDS: Acetaminophen 325 MG TABLET 650 MG PO (22:34)
[2024-07-06 23:52] VITALS: BP 100/62; PULSE 82; RESP 16; TEMP 36.3; O2SAT 93
[2024-07-07] VITALS (9 sets, daily range): BP systolic 91–136; BP diastolic 59–90; PULSE 72–107; RESP 14–20; TEMP 36.2–37.4; O2SAT 91–99
--- NOTE | 2024-07-07 | ECG_ITS ---
Test Reason : REPEATED RHYTHM Blood Pressure : */* mmHG Vent. Rate : 92 BPM Atrial Rate : 92 BPM P-R Int : 112 ms QRS Dur : 84 ms QT Int : 420 ms P-R-T Axes : 43 9 137 degrees QTcB Int : 519 ms Normal sinus rhythm Left atrial enlargement ST & T wave abnormality, consider anterolateral ischemia Prolonged QT Abnormal ECG When compared with ECG of 06-Jul-2024 13:29, No significant change was found Referred By: Linsey Gonzalez Electronically Signed By: Wilbur Cervantes
[2024-07-07] MEDS: Heparin Sodium,Porcine 5,000 UNIT/ML VIAL 5000 UNIT SUBCUT ×2 (04:45→16:10)
[2024-07-07 06:45] LABS: MANUAL DIFF FLAG NO
[2024-07-07 06:46] LABS: Glucose, Whole Blood 254 mg/dL (60-115)
[2024-07-07 06:49] LABS: Basophils Absolute Auto 0.1 X10*3/uL (0.0-0.2); Basophils Percent Auto 0.8 % (0-2); Eosinophils Absolute Auto 0.2 X10*3/uL (0.0-0.4); Eosinophils Percent Auto 1.8 % (0-4); Hematocrit 36.4 % (37.0-47.0); Hemoglobin 12.6 g/dl (12.0-16.0); Imm Gran Abs Auto 0.04 X10*3/uL (0.00-0.03); Imm Gran Pct Auto 0.4 % (0.0-0.4); Lymphocytes Absolute Auto 3.8 X10*3/uL (1.2-4.9); Lymphocytes Percent Auto 34.4 % (20-40); Mean Corpuscular HGB Conc 34.6 g/dl (31.0-35.0); Mean Corpuscular Hemoglobin 27.3 pg (27.0-33.0); Mean Platelet Volume 11.7 fL (9.4-12.3); Monocytes Absolute Auto 0.7 X10*3/uL (0.1-1.2); Monocytes Percent Auto 6.4 % (2-11); Neutrophils Absolute Auto 6.3 x10*3/uL (2.0-8.3); Neutrophils Percent Auto 56.2 % (45-73); Platelet Count 318 X10*3/uL (160-400); Red Blood Count 4.61 X10*6/uL (4.20-5.50); White Blood Count 11.1 X10*3/uL (4.8-10.8)
[2024-07-07 07:11] LABS: Alanine Aminotransferase 13 U/L (0-31); Albumin Level 3.8 g/dL (3.5-5.0); Alkaline Phosphatase 170 U/L (39-117); Anion Gap 18 (12-20); Aspartate Amino Transferase 21 U/L (5-31); Bilirubin Total 0.4 mg/dL (0.0-1.0); Blood Urea Nitrogen 15 mg/dL (9-16); Calcium 9.7 mg/dL (8.4-10.2); Carbon Dioxide 28 mmol/L (22-29); Chloride 93 mmol/L (96-108); Creatinine Clr Calc Pharmacy 50.2; Estimated Glomerular Filt Rate 46; Glucose Random 253 mg/dL (60-115); Magnesium 2.2 mg/dL (1.6-2.6); Potassium 3.6 mmol/L (3.3-5.1); Sodium 135 mmol/L (135-145); Total Protein 7.2 g/dL (6.5-8.0)
[2024-07-07 07:29] LABS: Estimated Average Glucose 272 mg/dL; Hemoglobin A1C 332.2631 umol/L; Hemoglobin A1c % 11.1 % (<6.0); Total Hemoglobin (HGBA1C) 3384.5555 umol/L
[2024-07-07] MEDS: Insulin Lispro 100 UNIT/ML 3 ML VIAL 7 UNIT SUBCUT ×2 (07:29→11:32)
[2024-07-07] MEDS: Insulin Lispro 100 UNIT/ML 3 ML VIAL SUBCUT ×4 (07:29→21:29)
[2024-07-07] MEDS: 0.9 % Sodium Chloride Flush 3 ML SYRINGE IVFLUSH ×2 (07:29→11:32)
[2024-07-07] MEDS: Acetaminophen 325 MG TABLET 650 MG PO ×2 (07:30→16:10)
--- NOTE | 2024-07-07 08:51 | MHC.CM.PN ---
Monika 07/07/24, Pt lives with her , she has [employer], her son in [employer], 40 hrs a week. For DME, she has cane, walker, grab bars, tub bench. Her son Ishan is HCP and is in chart. PCP is confirmed: Isabel Lewis. Son to transport home at DC. DCP: home, resume [employer]. CM to follow for DC needs.
--- NOTE | 2024-07-07 09:12 | P.PNIM_ITS ---
Subjective Subjective Date of Service: 07/07/24 Interval History: Follow up CHF feeling better but still sob especially with ambulation Physical Exam 2 Vital Signs: Vital Signs: Last Vital Signs Temp 97.1 F 07/07/24 07:33 Pulse 86 07/07/24 07:33 Resp 14 07/07/24 07:33 BP 98/64 07/07/24 07:33 Pulse Ox 94 07/07/24 07:33 O2 Del Method Room Air 07/07/24 07:33 BMI result Body Mass Index 29.7 Appearing in no acute distress lung sounds mild rales at bases heart regular rate rhythm, clear S1, S2 positive bowel sounds, abdomen is soft, nontender neuro patient is alert x3, no focal deficits Objective Data Active Medications Acetaminophen (Acetaminophen 325 Mg Tablet) 650 mg PO Q6H PRN PRN Reason: Pain, Mild 1-3,fever,headache Last Admin: 07/07/24 07:30 Dose: 650 mg Documented By: KELLY Amitriptyline HCl (Amitriptyline Hcl 10 Mg Tablet) 20 mg PO BEDTIME [facility] Aripiprazole (Aripiprazole 20 Mg Tablet) 20 mg PO DAILY [facility] Atorvastatin Calcium (Atorvastatin Calcium 10 Mg Tablet) 10 mg PO BEDTIME [facility] Baclofen (Baclofen 10 Mg Tablet) 5 mg PO TID PRN PRN Reason: Muscle Spasm Buspirone HCl (Buspirone Hcl 5 Mg Tablet) 15 mg PO TID [facility] Calcium Carbonate (Calcium Carbonate 750 Mg Tab.Chew) 750 mg PO Q4H PRN PRN Reason: Heartburn Calcium Carbonate/Cholecalciferol (Calcium + Vitamin D 250 Mg Tablet) 250 mg PO BID [facility] Dextrose (Dextrose 50 % 25 Gm/50 Ml Syringe) 25 gm IVPUSH Q15M PRN; Protocol PRN Reason: per Hypoglycemia Standing Ord. Divalproex Sodium (Divalproex Sodium Er 500 Mg Tab.Er.24h) 500 mg PO BID [facility] Duloxetine HCl (Duloxetine Hcl 60 Mg Capsule.Dr) 60 mg PO DAILY [facility] Fluticasone/Vilanterol (Fluticasone/Vilanterol 200/25 Blst.W.Dev) 1 puff INHALE DAILY [facility] Gabapentin (Gabapentin 300 Mg Capsule) 600 mg PO TID [facility] Glucose (Glucose Gel 15 Gm Gel..Gram.) 15 gm PO Q15M PRN; Protocol PRN Reason: per Hypoglycemia Standing Ord. Heparin Sodium (Porcine) (Heparin Sodium,Porcine 5,000 Unit/Ml Vial) 5,000 unit SUBCUT Q12H [facility] Last Admin: 07/07/24 04:45 Dose: 5,000 unit Documented By: HARJINDER Insulin Glargine (Insulin Glargine,Hum.Rec.Anlog 100 Unit/Ml 10 Ml Vial) 15 unit SUBCUT BEDTIME [facility] Last Admin: 07/06/24 22:29 Dose: 15 unit Documented By: CARLOS Insulin Human Lispro (Insulin Lispro 100 Unit/Ml 3 Ml Vial) 0 unit SUBCUT QIDACHS [facility]; Protocol Last Admin: 07/07/24 07:29 Dose: 6 unit Documented By: MAULIK-SUKHDEV Insulin Human Lispro (Insulin Lispro 100 Unit/Ml 3 Ml Vial) 7 unit SUBCUT DAILY@0730 [facility] Last Admin: 07/07/24 07:29 Dose: 7 unit Documented By: KELLY Insulin Human Lispro (Insulin Lispro 100 Unit/Ml 3 Ml Vial) 7 unit SUBCUT DAILY@1130 [facility] Magnesium Hydroxide (Milk Of Magnesia 30 Ml Oral.Susp) 30 ml PO DAILY PRN PRN Reason: Constipation Magnesium Oxide (Magnesium Oxide 400 Mg Tablet) 400 mg PO DAILY [facility] Meclizine HCl (Meclizine Hcl 25 Mg Tablet) 25 mg PO BID PRN PRN Reason: Motion Sickness/Vertigo Melatonin (Melatonin 3 Mg Tablet) 6 mg PO BEDTIME PRN PRN Reason: Insomnia Last Admin: 07/06/24 22:29 Dose: 6 mg Documented By: CARLOS Multivitamins/Vitamin C (Multivitamin Tablet) 1 tab PO DAILY [facility] Omeprazole (Omeprazole 40 Mg Capsule.Dr) 40 mg PO BID@0630,1630 [facility] Oxybutynin Chloride (Oxybutynin Chloride Er 5 Mg Tab.Er.24) 5 mg PO BEDTIME [facility] Oxycodone HCl (Oxycodone Hcl Immed Release 5 Mg Tablet) 5 mg PO Q6H PRN PRN Reason: Pain, Moderate(Pain Scale 4-6) Polyethylene Glycol (Polyethylene Glycol 3350 17 Gm Powd.Pack) 17 gm PO DAILY PRN PRN Reason: Constipation Quetiapine Fumarate (Quetiapine Fumarate 200 Mg Tablet) 200 mg PO BEDTIME [facility] Sodium Chloride (0.9 % Sodium Chloride Flush 3 Ml Syringe) 3 ml IVFLUSH QSHIFT [facility] Last Admin: 07/07/24 07:29 Dose: 3 ml Documented By: KELLY Tiotropium [place] (Tiotropium [place] 2.5 Mcg 1 Puff/2.5 Mcg Mist.Inhal) 2 puff INHALE DAILY [facility] Labs 07/07/24 06:18 07/07/24 06:18 Labs: Laboratory Results - last 24 hr 07/06/24 07/06/24 07/06/24 13:41 14:51 16:08 MCV 77.5 L MCH 27.1 MCHC 34.9 RDW 14.6 Plt Count 326 MPV 11.7 Immature Gran % (Auto) 0.4 Neut % (Auto) 70.7 Lymph % (Auto) 22.5 [place] % (Auto) 5.3 Eos % (Auto) 0.5 Baso % (Auto) 0.6 Lymph # (Auto) 3.4 [place] # (Auto) 0.8 Eos # (Auto) 0.1 Baso # (Auto) 0.1 Abs Immat Gran (auto) 0.06 H Absolute Neuts (auto) 10.6 H Absolute Nucleated RBC 0.000 Nucleated RBC % (auto) 0.0 PT 11.6 INR 1.0 APTT 26.2 VBG pH VBG pCO2 VBG pO2 VBG HCO3 VBG O2 Saturation VBG Base Excess Anion Gap 20 Estim Creat Clear Calc 49.4 Estimated GFR 45 POC Glucose 529 H* Random Glucose 503 H* Estimat Average Glucose Hemoglobin A1c % Calcium 10.0 D Magnesium 2.0 Total Bilirubin 0.4 AST 23 ALT 15 Alkaline Phosphatase 193 H Troponin I High Sens 57.1 H* D 58.9 H* B-Natriuretic Peptide Total Protein 7.5 Albumin 3.9 Beta-Hydroxybutyrate 1.40 H Urine Color Yellow Urine Appearance Clear Urine pH 6.5 Ur Specific [place] 1.020 Urine Protein Negative Urine Glucose (UA) >=1000 H Urine Ketones Negative Urine Blood Negative Urine Nitrite Negative Ur Leukocyte Esterase Negative Urine RBC 0-2 Urine WBC 0-5 Ur Squamous Epith Cells 0-2 Urine Bacteria None Seen Hyaline Casts 0-2 Influenza Type A (PCR) NEGATIVE Influenza Type B (PCR) NEGATIVE RSV RNA Qual (PCR) NEGATIVE SARS-CoV-2 RNA (RT-PCR) NEGATIVE S. pyogenes GrpA MILI 07/06/24 07/06/24 07/06/24 16:59 17:00 17:09 MCV MCH MCHC RDW Plt Count MPV Immature Gran % (Auto) Neut % (Auto) Lymph % (Auto) [place] % (Auto) Eos % (Auto) Baso % (Auto) Lymph # (Auto) [place] # (Auto) Eos # (Auto) Baso # (Auto) Abs Immat Gran (auto) Absolute Neuts (auto) Absolute Nucleated RBC Nucleated RBC % (auto) PT INR APTT VBG pH 7.53 H VBG pCO2 42 VBG pO2 66 VBG HCO3 36 H VBG O2 Saturation 87.0 VBG Base Excess 12.0 Anion Gap 17 Estim Creat Clear Calc 51.1 Estimated GFR 46 POC Glucose Random Glucose 484 H* Estimat Average Glucose Hemoglobin A1c % Calcium 9.1 D Magnesium Total Bilirubin AST ALT Alkaline Phosphatase Troponin I High Sens B-Natriuretic Peptide 193 H Total Protein Albumin Beta-Hydroxybutyrate Urine Color Urine Appearance Urine pH Ur Specific [place] Urine Protein Urine Glucose (UA) Urine Ketones Urine Blood Urine Nitrite Ur Leukocyte Esterase Urine RBC Urine WBC Ur Squamous Epith Cells Urine Bacteria Hyaline Casts Influenza Type A (PCR) Influenza Type B (PCR) RSV RNA Qual (PCR) SARS-CoV-2 RNA (RT-PCR) S. pyogenes GrpA MILI Negative 07/06/24 07/06/24 07/07/24 20:55 21:00 06:18 MCV 79.0 L MCH 27.3 MCHC 34.6 RDW 15.0 Plt Count 318 MPV 11.7 Immature Gran % (Auto) 0.4 Neut % (Auto) 56.2 Lymph % (Auto) 34.4 [place] % (Auto) 6.4 Eos % (Auto) 1.8 Baso % (Auto) 0.8 Lymph # (Auto) 3.8 [place] # (Auto) 0.7 Eos # (Auto) 0.2 Baso # (Auto) 0.1 Abs Immat Gran (auto) 0.04 H Absolute Neuts (auto) 6.3 Absolute Nucleated RBC 0.000 Nucleated RBC % (auto) 0.0 PT INR APTT VBG pH VBG pCO2 VBG pO2 VBG HCO3 VBG O2 Saturation VBG Base Excess Anion Gap 18 18 Estim Creat Clear Calc 54.2 50.2 Estimated GFR 50 46 POC Glucose 445 H* Random Glucose 445 H* 253 H Estimat Average Glucose 272 Hemoglobin A1c % 11.1 H Calcium 9.1 9.7 D Magnesium 2.2 Total Bilirubin 0.4 AST 21 ALT 13 Alkaline Phosphatase 170 H Troponin I High Sens B-Natriuretic Peptide Total Protein 7.2 Albumin 3.8 Beta-Hydroxybutyrate Urine Color Urine Appearance Urine pH Ur Specific [place] Urine Protein Urine Glucose (UA) Urine Ketones Urine Blood Urine Nitrite Ur Leukocyte Esterase Urine RBC Urine WBC Ur Squamous Epith Cells Urine Bacteria Hyaline Casts Influenza Type A (PCR) Influenza Type B (PCR) RSV RNA Qual (PCR) SARS-CoV-2 RNA (RT-PCR) S. pyogenes GrpA [facility]I 07/07/24 06:41 MCV MCH MCHC RDW Plt Count MPV Immature Gran % (Auto) Neut % (Auto) Lymph % (Auto) [place] % (Auto) Eos % (Auto) Baso % (Auto) Lymph # (Auto) [place] # (Auto) Eos # (Auto) Baso # (Auto) Abs Immat Gran (auto) Absolute Neuts (auto) Absolute Nucleated RBC Nucleated RBC % (auto) PT INR APTT VBG pH VBG pCO2 VBG pO2 VBG HCO3 VBG O2 Saturation VBG Base Excess Anion Gap Estim Creat Clear Calc Estimated GFR POC Glucose 254 H Random Glucose Estimat Average Glucose Hemoglobin A1c % Calcium Magnesium Total Bilirubin AST ALT Alkaline Phosphatase Troponin I High Sens B-Natriuretic Peptide Total Protein Albumin Beta-Hydroxybutyrate Urine Color Urine Appearance Urine pH Ur Specific [place] Urine Protein Urine Glucose (UA) Urine Ketones Urine Blood Urine Nitrite Ur Leukocyte Esterase Urine RBC Urine WBC Ur Squamous Epith Cells Urine Bacteria Hyaline Casts Influenza Type A (PCR) Influenza Type B (PCR) RSV RNA Qual (PCR) SARS-CoV-2 RNA (RT-PCR) S. pyogenes GrpA MILI Assessment and Plan (1) Drug side effects: Status: Acute (2) Uncontrolled diabetes mellitus with hyperglycemia: Status: Acute Plan 54 year old women admitted with weakness, chest pressure, CHF and hyperglycemia HFpEF exacerbation dyspnea on exertion Lasix IV 40 BID echocardiogram cardiology consultation Weakness ua neg, cxr no consolidation, RSV, Covid, flu neg, no fever, +leukocytosis normal LFT's RPP pending blood cx pending Diabetes Mellitus 2 with hyperglycemia. Hyperglycemia Resolved secondary to poor appetite and missing medications non anion gap elevated BHB multiple electrolyte abnormalities SS, ADA Diet VBG 7.53/42/66/36 s/p IV fluids Hypokalemia. Resolved IV and po replacement Hyponatremia. 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 Snider Full code Quality Stroke Does the patient have a stroke diagnosis?: No VTE Prior VTE?: No VTE Risk Level:: Medical - moderate - high VTE Device Contraindication: Treatment Not Indicated VTE Drug Contraindication: N/A - Med Ordered
[2024-07-07] MEDS: Magnesium Oxide 400 MG TABLET PO (09:42)
[2024-07-07] MEDS: busPIRone HCl 5 MG TABLET 15 MG PO ×3 (09:42→21:27)
[2024-07-07] MEDS: DULoxetine HCl 60 MG CAPSULE.DR PO (09:42)
[2024-07-07] MEDS: Furosemide 40 MG/4 ML VIAL IVPUSH ×2 (09:42→16:13)
[2024-07-07] MEDS: Calcium + Vitamin D 250 MG TABLET PO ×2 (09:43→21:28)
[2024-07-07] MEDS: Divalproex Sodium ER 500 MG TAB.ER.24H PO ×2 (09:43→21:28)
[2024-07-07] MEDS: Gabapentin 300 MG CAPSULE 600 MG PO ×3 (09:43→21:28)
[2024-07-07] MEDS: Multivitamin TABLET 1 TAB PO (09:43)
[2024-07-07] MEDS: ARIPiprazole 20 MG TABLET PO (09:43)
[2024-07-07 11:13] LABS: Glucose, Whole Blood 172 mg/dL (60-115)
--- NOTE | 2024-07-07 11:19 | PM.CNCAR ---
History of Present Illness History of Present Illness Date of Service: 07/07/24 Requesting physician: Linsey Gonzalez Chief complaint: Hyperglycemia, weaknessm hypokalemia Narrative: Pleasant 54-year-old lady with background history of seronegative rheumatoid arthritis and diabetes who is presenting with generalized weakness and chest pressure. She was noticed to be currently hypokalemic and potassium was repleted. She is saying she is feeling better since then. She is saying that moment she stands up she starts feeling pressure-like feeling in her chest which lasts for few seconds and then goes away. Her ECG was quite abnorma on admission which showed ST depressions which were diffusely present in the precordial leads LVAD as lateral leads. QT interval was prolonged at 563 milliseconds. She is denying any significant cardiovascular issues in the past. No history of coronary disease reportedly. She has rheumatoid arthritis and has been on treatment for that through rheumatology. [facility] Past Medical History Medical History Osteoarthritis (arthritis due to wear and tear of joints) Major depressive disorder PTSD (post-traumatic stress disorder) CAP (community acquired pneumonia) Fibromyalgia Asthma Chronic mixed headache syndrome Obstructive sleep apnea Diabetes Bipolar disorder Family History Family History Mother Arthritis Asthma Diabetes Surgical History Surgical History Hx of colonoscopy Hx of cholecystectomy H/O shoulder surgery Social History Social History Household Members: Spouse Housing: Apartment Do you presently have visiting nurse or other home services: Yes Alcohol intake: former Patient Tobacco Use Status: Current everyday Tobacco user Tobacco use type: Cigarette Cigarettes Per Day: 12 Years Smoked: 45 Smoked in Last 30 Days: Yes Use of substances other than those prescribed or required for medical reasons: No Currently Displaying Signs/Symptoms of Drug Intoxication Withdrawal: No Have you been hit, kicked, punched, or otherwise hurt by someone within the past year? If so, by whom?: No Do you feel safe in your current relationship?: Yes Is there a partner from a previous relationship who is making you feel unsafe now?: No Are you made to feel afraid or neglected: No Advance Directives: No Advance Directives Information Provided: Yes Do you have a plan to hurt others: No Plan Recently lost weight without trying: Yes How much weight loss: Unsure Eating poorly because of decreased appetite: Yes Nutrition screen score: 5 Nutrition Risks: Poor intake 0-25% >4 days Patient : No : No Poor oral hygiene: No service: No Meds Allergies Allergy/AdvReac Type Severity Reaction Status Date / Time sumatriptan [From IMITREX] Allergy Severe SYNCOPE Verified 07/06/24 11:55 Penicillins [PENICILLINS] Allergy Intermediate SHORTNESS Verified 07/06/24 11:55 OF BREATH penicillin V Allergy Unknown swelling, Verified 07/06/24 11:55 rash, pruritis topiramate [From TOPAMAX] AdvReac Severe OVERDOSED Verified 07/06/24 11:55 Active Medications: Current Medications Acetaminophen (Acetaminophen 325 Mg Tablet) 650 mg PO Q6H PRN PRN Reason: Pain, Mild 1-3,fever,headache Last Admin: 07/07/24 07:30 Dose: 650 mg Amitriptyline HCl (Amitriptyline Hcl 10 Mg Tablet) 20 mg PO BEDTIME [facility] Aripiprazole (Aripiprazole 20 Mg Tablet) 20 mg PO DAILY [facility] Last Admin: 07/07/24 09:43 Dose: 20 mg Atorvastatin Calcium (Atorvastatin Calcium 10 Mg Tablet) 10 mg PO BEDTIME [facility] Baclofen (Baclofen 10 Mg Tablet) 5 mg PO TID PRN PRN Reason: Muscle Spasm Buspirone HCl (Buspirone Hcl 5 Mg Tablet) 15 mg PO TID [facility] Last Admin: 07/07/24 09:42 Dose: 15 mg Calcium Carbonate (Calcium Carbonate 750 Mg Tab.Chew) 750 mg PO Q4H PRN PRN Reason: Heartburn Calcium Carbonate/Cholecalciferol (Calcium + Vitamin D 250 Mg Tablet) 250 mg PO BID [facility] Last Admin: 07/07/24 09:43 Dose: 250 mg Dextrose (Dextrose 50 % 25 Gm/50 Ml Syringe) 25 gm IVPUSH Q15M PRN; Protocol PRN Reason: per Hypoglycemia Standing Ord. Divalproex Sodium (Divalproex Sodium Er 500 Mg Tab.Er.24h) 500 mg PO BID [facility] Last Admin: 07/07/24 09:43 Dose: 500 mg Duloxetine HCl (Duloxetine Hcl 60 Mg Capsule.Dr) 60 mg PO DAILY [facility] Last Admin: 07/07/24 09:42 Dose: 60 mg Fluticasone/Vilanterol (Fluticasone/Vilanterol 200/25 Blst.W.Dev) 1 puff INHALE DAILY [facility] Furosemide (Furosemide 40 Mg/4 Ml Vial) 40 mg IVPUSH BID@0900,1800 [facility]; Protocol Last Admin: 07/07/24 09:42 Dose: 40 mg Gabapentin (Gabapentin 300 Mg Capsule) 600 mg PO TID [facility] Last Admin: 07/07/24 09:43 Dose: 600 mg Glucose (Glucose Gel 15 Gm Gel..Gram.) 15 gm PO Q15M PRN; Protocol PRN Reason: per Hypoglycemia Standing Ord. Heparin Sodium (Porcine) (Heparin Sodium,Porcine 5,000 Unit/Ml Vial) 5,000 unit SUBCUT Q12H [facility] Last Admin: 07/07/24 04:45 Dose: 5,000 unit Insulin Glargine (Insulin Glargine,Hum.Rec.Anlog 100 Unit/Ml 10 Ml Vial) 15 unit SUBCUT BEDTIME [facility] Last Admin: 07/06/24 22:29 Dose: 15 unit Insulin Human Lispro (Insulin Lispro 100 Unit/Ml 3 Ml Vial) 0 unit SUBCUT QIDACHS [facility]; Protocol Last Admin: 07/07/24 07:29 Dose: 6 unit Insulin Human Lispro (Insulin Lispro 100 Unit/Ml 3 Ml Vial) 7 unit SUBCUT DAILY@0730 [facility] Last Admin: 07/07/24 07:29 Dose: 7 unit Insulin Human Lispro (Insulin Lispro 100 Unit/Ml 3 Ml Vial) 7 unit SUBCUT DAILY@1130 [facility] Magnesium Hydroxide (Milk Of Magnesia 30 Ml Oral.Susp) 30 ml PO DAILY PRN PRN Reason: Constipation Magnesium Oxide (Magnesium Oxide 400 Mg Tablet) 400 mg PO DAILY [facility] Last Admin: 07/07/24 09:42 Dose: 400 mg Meclizine HCl (Meclizine Hcl 25 Mg Tablet) 25 mg PO BID PRN PRN Reason: Motion Sickness/Vertigo Melatonin (Melatonin 3 Mg Tablet) 6 mg PO BEDTIME PRN PRN Reason: Insomnia Last Admin: 07/06/24 22:29 Dose: 6 mg Multivitamins/Vitamin C (Multivitamin Tablet) 1 tab PO DAILY [facility] Last Admin: 07/07/24 09:43 Dose: 1 tab Omeprazole (Omeprazole 40 Mg Capsule.Dr) 40 mg PO BID@0630,1630 [facility] Oxybutynin Chloride (Oxybutynin Chloride Er 5 Mg Tab.Er.24) 5 mg PO BEDTIME [facility] Oxycodone HCl (Oxycodone Hcl Immed Release 5 Mg Tablet) 5 mg PO Q6H PRN PRN Reason: Pain, Moderate(Pain Scale 4-6) Polyethylene Glycol (Polyethylene Glycol 3350 17 Gm Powd.Pack) 17 gm PO DAILY PRN PRN Reason: Constipation Quetiapine Fumarate (Quetiapine Fumarate 200 Mg Tablet) 200 mg PO BEDTIME [facility] Sodium Chloride (0.9 % Sodium Chloride Flush 3 Ml Syringe) 3 ml IVFLUSH QSHIFT [facility] Last Admin: 07/07/24 07:29 Dose: 3 ml Tiotropium [place] (Tiotropium [place] 2.5 Mcg 1 Puff/2.5 Mcg Mist.Inhal) 2 puff INHALE DAILY [facility] Home Medications ?Medication ?Instructions ?Recorded ?Confirmed ?Last Taken ?Type atorvastatin 10 mg tablet (Lipitor) 10 mg PO BEDTIME 05/19/20 07/06/24 1 Week Ago History ~06/29/24 duloxetine 60 mg capsule,delayed 60 mg PO DAILY 05/01/21 07/06/24 1 Week Ago History release ~06/29/24 baclofen 5 mg tablet 5 mg PO TID PRN Muscle Spasm 09/06/21 07/06/24 06/18/24 History amitriptyline 10 mg tablet 2 tab PO BEDTIME 10/09/21 07/06/24 1 Week Ago History ~06/29/24 calcium 600 mg (as 1 tab PO BID 10/09/21 07/06/24 1 Week Ago History carbonate)-vitamin D3 10 mcg (400 ~06/29/24 unit) tablet oxybutynin chloride 5 mg 1 tab PO BEDTIME 10/09/21 07/06/24 1 Week Ago History tablet,extended release 24 hr ~06/29/24 pen needle, diabetic 32 gauge x #50 ea 11/06/21 06/26/23 Unknown History (UltiCare Pen Needle) aripiprazole 20 mg tablet 20 mg PO DAILY 03/01/23 07/06/24 1 Week Ago History ~06/29/24 budesonide-formoterol HFA 160 2 puff inhalation BID 03/01/23 07/06/24 1 Week Ago History mcg-4.5 mcg/actuation aerosol ~06/29/24 inhaler (Symbicort) buspirone 15 mg tablet 15 mg PO TID 03/01/23 07/06/24 1 Week Ago History ~06/29/24 furosemide 80 mg tablet 80 mg PO DAILY 03/01/23 07/06/24 1 Week Ago History ~06/29/24 magnesium oxide 400 mg (241.3 mg 400 mg PO DAILY 03/01/23 07/06/24 1 Week Ago History magnesium) tablet ~06/29/24 melatonin 5 mg tablet 10 mg PO BEDTIME 03/01/23 07/06/24 1 Week Ago History ~06/29/24 multivitamin-iron sulfate 15 1 tab PO DAILY 03/01/23 07/06/24 1 Week Ago History mg-folic acid 400 mcg tablet ~06/29/24 (Tab-A-Manjeet Multivitamin w-iron) gabapentin 300 mg capsule 600 mg PO TID 03/04/23 07/06/24 1 Week Ago History ~06/29/24 albuterol sulfate 2.5 mg/3 mL 2.5 mg inhalation QID PRN 04/30/23 07/06/24 Unknown History (0.083 %) solution for nebulization Shortness Of Breath Or Wheezing albuterol sulfate 90 mcg/actuation 2 inh inhalation Q4H PRN Shortness 04/30/23 07/06/24 Unknown History aerosol inhaler (Ventolin HFA) Of Breath Or Wheezing divalproex 500 mg tablet,extended 500 mg PO BID 04/30/23 07/06/24 1 Week Ago History release 24 hr ~06/29/24 insulin degludec 200 unit/mL (3 78 unit subcut DAILY 04/30/23 07/06/24 1 Week Ago History mL) subcutaneous pen (Tresiba ~06/29/24 FlexTouch U-200 insulin) meclizine 25 mg tablet 25 mg PO BID PRN Motion 04/30/23 07/06/24 Unknown History Sickness/Vertigo omeprazole 20 mg capsule,delayed 40 mg PO BID@0630,1630 09/30/23 07/06/24 1 Week Ago History release ~06/29/24 riboflavin (vitamin B2) 100 mg 200 mg PO BID 09/30/23 07/06/24 1 Week Ago History tablet ~06/29/24 tiotropium bromide 2.5 2 puff inhalation DAILY 11/29/23 07/06/24 1 Week Ago History mcg/actuation mist for inhalation ~06/29/24 (Spiriva Respimat) flash glucose sensor (FreeStyle #1 ea 01/20/24 Unknown History Jt 2 Sensor kit) polyethylene glycol 3350 17 17 g PO DAILY PRN Constipation 01/20/24 07/06/24 06/18/24 History gram/dose oral powder quetiapine 200 mg tablet 200 mg PO BEDTIME 01/20/24 07/06/24 1 Week Ago History ~06/29/24 empagliflozin 12.5 mg-metformin 1 tab PO BID 06/18/24 07/06/24 1 Week Ago History 1,000 mg tablet (Synjardy) ~06/29/24 insulin aspart U-100 100 unit/mL See Protocol subcut BIDAC 06/18/24 07/06/24 1 Week Ago History (3 mL) subcutaneous pen (Novolog ~06/29/24 FlexPen U-100 Insulin aspart) tirzepatide 12.5 mg/0.5 mL 12.5 mg subcut WE 06/18/24 07/06/24 06/24/24 History subcutaneous pen injector (Mounjaro) tocilizumab 162 mg/0.9 mL mg subcut 06/18/24 Unknown History subcutaneous pen injector (Actemra ACTPen) Physical Exam Vital Signs: Vital Signs: Last Vital Signs Temp 97.1 F 07/07/24 07:33 Pulse 86 07/07/24 07:33 Resp 14 07/07/24 07:33 BP 98/64 07/07/24 07:33 Pulse Ox 94 07/07/24 07:33 O2 Del Method Room Air 07/07/24 07:33 BMI result Body Mass Index 29.7 GENERAL APPEARANCE: in no acute distress, pleasant. NECK: no carotid bruit, no jugular venous distention. SKIN: no suspicious lesions, warm and dry. HEART: no murmurs, regular rate and rhythm. LUNGS: clear to auscultation bilaterally. ABDOMEN: soft, nontender. EXTREMITIES: no edema. PERIPHERAL PULSES: equal. NEUROLOGIC: No gross deficits, AAO X 3 Objective Labs and Meds 07/07/24 06:18 02/04/25 06:18 Lab results: Laboratory Results - last 24 hr 07/06/24 07/06/24 07/06/24 13:41 14:51 16:08 WBC 15.0 H RBC 4.80 D Hgb 13.0 D Hct 37.2 D MCV 77.5 L MCH 27.1 MCHC 34.9 RDW 14.6 Plt Count 326 MPV 11.7 Immature Gran % (Auto) 0.4 Neut % (Auto) 70.7 Lymph % (Auto) 22.5 Vance % (Auto) 5.3 Eos % (Auto) 0.5 Baso % (Auto) 0.6 Lymph # (Auto) 3.4 Vance # (Auto) 0.8 Eos # (Auto) 0.1 Baso # (Auto) 0.1 Abs Immat Gran (auto) 0.06 H Absolute Neuts (auto) 10.6 H Absolute Nucleated RBC 0.000 Nucleated RBC % (auto) 0.0 PT 11.6 INR 1.0 APTT 26.2 VBG pH VBG pCO2 VBG pO2 VBG HCO3 VBG O2 Saturation VBG Base Excess Sodium 130 L Potassium 2.5 L* Chloride 84 L D Carbon Dioxide 29 Anion Gap 20 BUN 14 Creatinine 1.24 Estim Creat Clear Calc 49.4 Estimated GFR 45 POC Glucose 529 H* Random Glucose 503 H* Estimat Average Glucose Hemoglobin A1c % Calcium 10.0 D Magnesium 2.0 Total Bilirubin 0.4 AST 23 ALT 15 Alkaline Phosphatase 193 H Troponin I High Sens 57.1 H* D 58.9 H* B-Natriuretic Peptide Total Protein 7.5 Albumin 3.9 Beta-Hydroxybutyrate 1.40 H Urine Color Yellow Urine Appearance Clear Urine pH 6.5 Ur Specific Switchback 1.020 Urine Protein Negative Urine Glucose (UA) >=1000 H Urine Ketones Negative Urine Blood Negative Urine Nitrite Negative Ur Leukocyte Esterase Negative Urine RBC 0-2 Urine WBC 0-5 Ur Squamous Epith Cells 0-2 Urine Bacteria None Seen Hyaline Casts 0-2 Influenza Type A (PCR) NEGATIVE Influenza Type B (PCR) NEGATIVE RSV RNA Qual (PCR) NEGATIVE SARS-CoV-2 RNA (RT-PCR) NEGATIVE S. pyogenes GrpA MILI 07/06/24 07/06/24 07/06/24 16:59 17:00 17:09 WBC RBC Hgb Hct MCV MCH MCHC RDW Plt Count MPV Immature Gran % (Auto) Neut % (Auto) Lymph % (Auto) Vance % (Auto) Eos % (Auto) Baso % (Auto) Lymph # (Auto) Vance # (Auto) Eos # (Auto) Baso # (Auto) Abs Immat Gran (auto) Absolute Neuts (auto) Absolute Nucleated RBC Nucleated RBC % (auto) PT INR APTT VBG pH 7.53 H VBG pCO2 42 VBG pO2 66 VBG HCO3 36 H VBG O2 Saturation 87.0 VBG Base Excess 12.0 Sodium 128 L Potassium 2.7 L* Chloride 84 L Carbon Dioxide 30 H Anion Gap 17 BUN 14 Creatinine 1.20 Estim Creat Clear Calc 51.1 Estimated GFR 46 POC Glucose Random Glucose 484 H* Estimat Average Glucose Hemoglobin A1c % Calcium 9.1 D Magnesium Total Bilirubin AST ALT Alkaline Phosphatase Troponin I High Sens B-Natriuretic Peptide 193 H Total Protein Albumin Beta-Hydroxybutyrate Urine Color Urine Appearance Urine pH Ur Specific Switchback Urine Protein Urine Glucose (UA) Urine Ketones Urine Blood Urine Nitrite Ur Leukocyte Esterase Urine RBC Urine WBC Ur Squamous Epith Cells Urine Bacteria Hyaline Casts Influenza Type A (PCR) Influenza Type B (PCR) RSV RNA Qual (PCR) SARS-CoV-2 RNA (RT-PCR) S. pyogenes GrpA MILI Negative 07/06/24 07/06/24 07/07/24 20:55 21:00 06:18 WBC 11.1 H RBC 4.61 Hgb 12.6 Hct 36.4 L MCV 79.0 L MCH 27.3 MCHC 34.6 RDW 15.0 Plt Count 318 MPV 11.7 Immature Gran % (Auto) 0.4 Neut % (Auto) 56.2 Lymph % (Auto) 34.4 Vance % (Auto) 6.4 Eos % (Auto) 1.8 Baso % (Auto) 0.8 Lymph # (Auto) 3.8 Vance # (Auto) 0.7 Eos # (Auto) 0.2 Baso # (Auto) 0.1 Abs Immat Gran (auto) 0.04 H Absolute Neuts (auto) 6.3 Absolute Nucleated RBC 0.000 Nucleated RBC % (auto) 0.0 PT INR APTT VBG pH VBG pCO2 VBG pO2 VBG HCO3 VBG O2 Saturation VBG Base Excess Sodium 129 L 135 Potassium 3.6 D 3.6 Chloride 87 L 93 L Carbon Dioxide 28 28 Anion Gap 18 18 BUN 14 15 Creatinine 1.13 1.22 Estim Creat Clear Calc 54.2 50.2 Estimated GFR 50 46 POC Glucose 445 H* Random Glucose 445 H* 253 H Estimat Average Glucose 272 Hemoglobin A1c % 11.1 H Calcium 9.1 9.7 D Magnesium 2.2 Total Bilirubin 0.4 AST 21 ALT 13 Alkaline Phosphatase 170 H Troponin I High Sens B-Natriuretic Peptide Total Protein 7.2 Albumin 3.8 Beta-Hydroxybutyrate Urine Color Urine Appearance Urine pH Ur Specific Switchback Urine Protein Urine Glucose (UA) Urine Ketones Urine Blood Urine Nitrite Ur Leukocyte Esterase Urine RBC Urine WBC Ur Squamous Epith Cells Urine Bacteria Hyaline Casts Influenza Type A (PCR) Influenza Type B (PCR) RSV RNA Qual (PCR) SARS-CoV-2 RNA (RT-PCR) S. pyogenes GrpA MILI 07/07/24 07/07/24 06:41 11:05 WBC RBC Hgb Hct MCV MCH MCHC RDW Plt Count MPV Immature Gran % (Auto) Neut % (Auto) Lymph % (Auto) Vance % (Auto) Eos % (Auto) Baso % (Auto) Lymph # (Auto) Vance # (Auto) Eos # (Auto) Baso # (Auto) Abs Immat Gran (auto) Absolute Neuts (auto) Absolute Nucleated RBC Nucleated RBC % (auto) PT INR APTT VBG pH VBG pCO2 VBG pO2 VBG HCO3 VBG O2 Saturation VBG Base Excess Sodium Potassium Chloride Carbon Dioxide Anion Gap BUN Creatinine Estim Creat Clear Calc Estimated GFR POC Glucose 254 H 172 H Random Glucose Estimat Average Glucose Hemoglobin A1c % Calcium Magnesium Total Bilirubin AST ALT Alkaline Phosphatase Troponin I High Sens B-Natriuretic Peptide Total Protein Albumin Beta-Hydroxybutyrate Urine Color Urine Appearance Urine pH Ur Specific Switchback Urine Protein Urine Glucose (UA) Urine Ketones Urine Blood Urine Nitrite Ur Leukocyte Esterase Urine RBC Urine WBC Ur Squamous Epith Cells Urine Bacteria Hyaline Casts Influenza Type A (PCR) Influenza Type B (PCR) RSV RNA Qual (PCR) SARS-CoV-2 RNA (RT-PCR) S. pyogenes GrpA [facility] Imaging Radiologist's impression: Impressions Chest X-Ray 07/06/24 14:31 IMPRESSION: Pulmonary edema in the correct clinical settings. Electronically signed by: Joey Camarillo MD 07/06/2024 02:42 PM EST Assessment and Plan (1) Acute hypokalemia: Status: Acute (2) Acute electrocardiogram changes: Status: Acute (3) Chest pressure: Status: Acute Plan 54 year female presenting with hypokalemia and weakness. She also complained of pressure-like feeling in her chest off and on going on since June 18. She describes this as a pressure-like feeling which happens for few seconds as she stands up. This is not a persistent discomfort. Her ECG was abnormal on admission and given diffuse ST depressions and prolonged QT interval it was felt that this is related to the hypokalemia as her potassium was 2.5. This has been repleted since then. We will reassess the EKG. I am hoping that the EKG changes will resolve after potassium supplementation. In terms of prevention for future we need to see whether she requires diuretics and what is the indication for diuretics in her. She is supposed to be on Lasix 80 mg daily. If she has to persistently use them then spironolactone can be added to improve the potassium level. For the chest pressure-I think she has risk factors for coronary disease. As she improves we can discuss whether an inpatient exercise stress test should be pursued. We will follow along with you. Thank you for allowing me to participate in the care of your patient. Please feel free to contact me if you have any questions. Procedures Date of Service Date of Service: 07/07/24
[2024-07-07] MEDS: Fluticasone/Vilanterol 200/25 BLST.W.DEV 1 PUFF INHALE (12:13)
[2024-07-07] MEDS: Tiotropium Bromide 2.5 mcg 1 PUFF/2.5 MCG MIST.INHAL 2 PUFF INHALE (12:13)
[2024-07-07 12:56] LABS: Adenovirus PCR Not Detected (Not Detect.); Bordetella parapertussis PCR Not Detected (Not Detect.); Bordetella pertussis PCR Not Detected (Not Detect.); Chlamydia pneumoniae PCR Not Detected (Not Detect.); Coronavirus 229E PCR Not Detected (Not Detect.); Coronavirus HKU1 PCR Not Detected (Not Detect.); Coronavirus NL63 PCR Not Detected (Not Detect.); Coronavirus OC43 PCR Not Detected (Not Detect.); Human metapneumovirus PCR Not Detected (Not Detect.); Influenza A PCR Not Detected (Not Detect.); Influenza B PCR Not Detected (Not Detect.); Mycoplasma pneumoniae PCR Not Detected (Not Detect.); Parainfluenza 1 PCR Not Detected (Not Detect.); Parainfluenza 2 PCR Not Detected (Not Detect.); Parainfluenza 3 PCR Not Detected (Not Detect.); Parainfluenza 4 PCR Not Detected (Not Detect.); RSV PCR Not Detected (Not Detect.); Rhino/Enterovirus PCR Not Detected (Not Detect.)
--- NOTE | 2024-07-07 13:00 | CA_ITS ---
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 There is mildly increased left ventricular wall thickness. The left ventricular systolic function is hyperdynamic. The visually estimated ejection fraction is >70%. - There is dynamic mid left ventricular obstruction. - E/E prime ratio is between 8 and 15 consistent with indeterminate filling pressures. - Normal right ventricular cavity size and systolic function. Findings Procedure Information Contrast agent, definity, is being given per protocol without apparent complications. Left Ventricle Normal left ventricular cavity size. There is mildly increased left ventricular wall thickness. The left ventricular systolic function is hyperdynamic. The visually estimated ejection fraction is >70%. There is no evidence of regional wall motion abnormalities. There is dynamic mid left ventricular obstruction. Abnormal diastolic function is noted. Spectral Doppler is indicative of an impaired relaxation filling pattern. E/E prime ratio is between 8 and 15 consistent with indeterminate filling pressures. Right Ventricle Normal right ventricular cavity size and systolic function. Atria The left atrium is normal in size. Aortic Valve There is a normal trileaflet aortic valve. There is no aortic valve stenosis. There is no aortic valve regurgitation. Mitral Valve The mitral valve appears normal. There is trace mitral valve regurgitation. There is no mitral valve stenosis. Pulmonic Valve The pulmonic valve is likely normal. Tricuspid Valve Normal tricuspid valve structure. There is trace tricuspid valve regurgitation. Normal right atrial pressure. There is no evidence of pulmonary hypertension. Great Vessels All visible segments of the aorta are normal in size. The visualized portions of the pulmonary artery and branches are normal. Venous The inferior vena cava is normal in size and collapses greater than 50% with inspiration. Pericardium/Pleural There is no evidence of pericardial effusion. Prior Study Comparison Changes noted compared to prior study dated: 02/23/2022. Hyperdynamic LV with mid LV cavity obstruction. Measurements 2D Linear Measurements IVSd: 1.12 0.6-0.9/0.6-1.0 cm LVIDd: 3.82 3.9-5.3/4.2-5.9 cm LVIDd Index: 2.13 2.4-3.2/2.2-3.1 cm/m2 LVIDs: 3.29 2.0-3.6 cm LVPWd: 1.00 0.7-1.1 cm LA Diam: 2.30 2.7-3.8/3.0-4.0 cm LAIDs Index: 1.28 1.5-2.3 cm/m2 LV Mass: 160.00 67-162/88-224 g LV Mass Index: 89.38 43-95/49-115 g/m2 LVOT Diam: 1.90 3.0+(-)1.3 cm 2D Systolic Function EF 4C: 63.90 >55% EF 2C: 69.90 >55% EF BiP: 65.60 >55% Mitral Valve MV Pk E: 0.65 MV PK A: 0.97 MV Decel Time: 307.00 E/A: 0.70 E'Lateral: 5.66 E'Medial: 5.00 E/E' Med: 13.00 E/E' Lat: 11.50 PHT: 90.00 MVA PHT: 2.44 Decel Morrill: 2.12 Aortic Valve AoV Pk Gokul: 3.43 AoV Mn Gokul: 2.28 AoV VTI: 0.53 AoV Pk Grad: 47.00 Aov Mn Grad: 26.00 GRIS Cont.VTI: 1.41 LVOT LVOT Pk Gokul: 1.52 LVOT Mn Gokul: 1.02 LVOT VTI: 0.26 LVOT Pk Grad: 9.00 LVOT Mn Grad: 5.00 LVOT Diam: 1.90 LVOT Area: 2.84 Diastolic Function MV Pk E: 0.65 MV Pk A: 0.97 E/A: 0.70 E'Medial: 5.00 E/E' Med: 13.00 E' Laterial: 5.66 E/E' Lat: 11.50 Right Ventricle TAPSE (mm): 16.10 TVS' Gokul: 14.60 Tricuspid Valve TR Pk Gokul: 1.93 TR Pk Grad: 15.00 RA Press: 3.00 RVSP: 18.00 Great Vessels Aorta Sinus of Valsalva: 3.00 2.0-3.5 cm Ao Asc: 3.10 2.1-3.4 cm Pulmonary Valve PV Pk Gokul: 1.49 Peak PV Grad: 9.00 Updated in Other Vendor System with Status of Final Wilbur Cervantes MD electronically signed on 07/08/2024 3:06:12 PM with status of Final
[2024-07-07 13:31] LABS: SARS-CoV-2 PCR Not Detected (Not Detect.)
[2024-07-07 15:31] LABS: Glucose, Whole Blood 154 mg/dL (60-115)
[2024-07-07] MEDS: Omeprazole 40 MG CAPSULE.DR PO (16:10)
[2024-07-07] MEDS: Sennosides 8.6 MG TABLET 17.2 MG PO (18:50)
[2024-07-07] MEDS: Nicotine 14 MG PATCH.TD24 TRANSDERMA (18:50)
[2024-07-07] MEDS: polyethylene glycoL 3350 17 GM POWD.PACK PO (18:50)
[2024-07-07 20:05] LABS: Glucose, Whole Blood 251 mg/dL (60-115)
[2024-07-07] MEDS: Atorvastatin Calcium 10 MG TABLET PO (21:27)
[2024-07-07] MEDS: QUEtiapine Fumarate 200 MG TABLET PO (21:28)
[2024-07-07] MEDS: Insulin Glargine,Hum.rec.anlog 100 UNIT/ML 10 ML VIAL 15 UNIT SUBCUT (21:30)
[2024-07-07] MEDS: oxyBUTYnin chloride ER 5 MG TAB.ER.24 PO (21:34)
[2024-07-07] MEDS: Amitriptyline HCl 10 MG TABLET 20 MG PO (22:03)
[2024-07-08] VITALS (7 sets, daily range): BP systolic 97–124; BP diastolic 60–76; PULSE 82–112; RESP 18–20; TEMP 36.4–37; O2SAT 93–98; BMI 28.6
--- NOTE | 2024-07-08 | ECG_ITS ---
Test Reason : Neifad Blood Pressure : */* mmHG Vent. Rate : 101 BPM Atrial Rate : 101 BPM P-R Int : 136 ms QRS Dur : 80 ms QT Int : 408 ms P-R-T Axes : 18 23 32 degrees QTcB Int : [address] & T wave abnormality, consider anterolateral ischemia Abnormal ECG When compared with ECG of 07-Jul-2024 11:14, No significant change was found Referred By: Deshawn Tay Electronically Signed By: Wilbur Cervantes
[2024-07-08] MEDS: Heparin Sodium,Porcine 5,000 UNIT/ML VIAL 5000 UNIT SUBCUT ×2 (04:26→17:49)
[2024-07-08] MEDS: Omeprazole 40 MG CAPSULE.DR PO ×2 (06:01→17:50)
[2024-07-08 07:14] LABS: Glucose, Whole Blood 266 mg/dL (60-115)
[2024-07-08 08:11] LABS: Anion Gap 18 (12-20); Blood Urea Nitrogen 17 mg/dL (9-16); Calcium 9.6 mg/dL (8.4-10.2); Carbon Dioxide 29 mmol/L (22-29); Chloride 91 mmol/L (96-108); Creatinine Clr Calc Pharmacy 50.6; Estimated Glomerular Filt Rate 47; Glucose Random 248 mg/dL (60-115); Potassium 3.2 mmol/L (3.3-5.1); Sodium 135 mmol/L (135-145)
[2024-07-08] MEDS: DULoxetine HCl 60 MG CAPSULE.DR PO (08:12)
[2024-07-08] MEDS: Nicotine 14 MG PATCH.TD24 TRANSDERMA (08:12)
[2024-07-08] MEDS: ARIPiprazole 20 MG TABLET PO (08:12)
[2024-07-08] MEDS: Magnesium Oxide 400 MG TABLET PO (08:13)
[2024-07-08] MEDS: busPIRone HCl 5 MG TABLET 15 MG PO ×3 (08:13→21:01)
[2024-07-08] MEDS: Gabapentin 300 MG CAPSULE 600 MG PO ×3 (08:13→21:02)
[2024-07-08] MEDS: Calcium + Vitamin D 250 MG TABLET PO ×2 (08:13→21:03)
[2024-07-08] MEDS: Divalproex Sodium ER 500 MG TAB.ER.24H PO ×2 (08:13→21:02)
[2024-07-08] MEDS: Insulin Lispro 100 UNIT/ML 3 ML VIAL SUBCUT ×4 (08:13→21:04)
[2024-07-08] MEDS: Multivitamin TABLET 1 TAB PO (08:13)
[2024-07-08] MEDS: Furosemide 40 MG/4 ML VIAL IVPUSH (08:13)
[2024-07-08] MEDS: 0.9 % Sodium Chloride Flush 3 ML SYRINGE IVFLUSH ×2 (08:14→21:05)
[2024-07-08] MEDS: Insulin Lispro 100 UNIT/ML 3 ML VIAL 7 UNIT SUBCUT (08:14)
[2024-07-08] MEDS: Fluticasone/Vilanterol 200/25 BLST.W.DEV 1 PUFF INHALE (08:26)
[2024-07-08] MEDS: Tiotropium Bromide 2.5 mcg 1 PUFF/2.5 MCG MIST.INHAL 2 PUFF INHALE (08:26)
[2024-07-08 09:12] LABS: Magnesium 2.3 mg/dL (1.6-2.6)
[2024-07-08] MEDS: Potassium Chloride ER 20 MEQ TAB.ER.PRT 40 MEQ PO (09:37)
--- NOTE | 2024-07-08 10:10 | PM.PNCARD ---
Subjective Subjective Date of Service: 07/08/24 Interval history: Seen examined at bedside. Feeling good. ECHO has shown intracavitary gradient. Difficult to say whether this is in the left ventricular outflow tract but mostly appears to be mid cavity gradient in the setting of hyperdynamic LV function. Physical Exam Vital Signs: Last Vital Signs Temp 97.6 F 07/08/24 07:21 Pulse 112 H 07/08/24 08:28 Resp 18 07/08/24 08:28 BP 124/76 07/08/24 07:21 Pulse Ox 97 07/08/24 07:21 O2 Del Method Room Air 07/08/24 07:21 BMI result Body Mass Index 28.6 GENERAL APPEARANCE: in no acute distress, pleasant. NECK: no carotid bruit, no jugular venous distention. SKIN: no suspicious lesions, warm and dry. HEART: Systolic murmur all over the precordium, regular rate and rhythm. With handgrip the murmur does not change. LUNGS: clear to auscultation bilaterally. ABDOMEN: soft, nontender. EXTREMITIES: no edema. PERIPHERAL PULSES: equal. NEUROLOGIC: No gross deficits, AAO X 3 Objective Labs and Meds 07/07/24 06:18 07/08/24 06:48 Lab results: Laboratory Results - last 24 hr 07/06/24 07/07/24 07/07/24 16:59 11:05 15:24 Hold Purple Top Sodium Potassium Chloride Carbon Dioxide Anion Gap BUN Creatinine Estim Creat Clear Calc Estimated GFR POC Glucose 172 H 154 H Random Glucose Calcium Magnesium Respiratory Panel Remy See Note Adenovirus (Rapid PCR) Not Detected B.pert (TEM-PCR) Not Detected B.parapertussis DNA PCR Not Detected C. pneumoniae DNA (PCR) Not Detected Coronavirus OC43 (PCR) Not Detected Coronavirus HKU1 (PCR) Not Detected Coronavirus 229E (PCR) Not Detected Coronavirus NL63 (PCR) Not Detected Human Metapneumovir PCR Not Detected Influenza A (RT-PCR) Not Detected Influenza B (RT-PCR) Not Detected M. pneumoniae (PCR) Not Detected Parainfluenza 1 (PCR) Not Detected Parainfluenza 2 (PCR) Not Detected Parainfluenza 3 (PCR) Not Detected Parainfluenza 4 (PCR) Not Detected RSV (PCR) Not Detected Entero/Rhino (PCR) Not Detected SARS-CoV-2 RNA (RT-PCR) Not Detected 07/07/24 07/08/24 07/08/24 20:01 06:48 07:10 Hold Purple Top SEE NOTE Sodium 135 Potassium 3.2 L Chloride 91 L Carbon Dioxide 29 Anion Gap 18 BUN 17 H Creatinine 1.19 Estim Creat Clear Calc 50.6 Estimated GFR 47 POC Glucose 251 H 266 H Random Glucose 248 H Calcium 9.6 Magnesium 2.3 Respiratory Panel Remy Adenovirus (Rapid PCR) B.pert (TEM-PCR) B.parapertussis DNA PCR C. pneumoniae DNA (PCR) Coronavirus OC43 (PCR) Coronavirus HKU1 (PCR) Coronavirus 229E (PCR) Coronavirus NL63 (PCR) Human Metapneumovir PCR Influenza A (RT-PCR) Influenza B (RT-PCR) M. pneumoniae (PCR) Parainfluenza 1 (PCR) Parainfluenza 2 (PCR) Parainfluenza 3 (PCR) Parainfluenza 4 (PCR) RSV (PCR) Entero/Rhino (PCR) SARS-CoV-2 RNA (RT-PCR) Progress Note: A&P Assessment and plan (1) Acute electrocardiogram changes: Status: Acute (2) Acute hypokalemia: Status: Acute (3) Chest pressure: Status: Acute Plan [age] year female presenting with hypokalemia and weakness. Potassium was repleted but still she is hypokalemic. Please start her on spironolactone 25 mg daily. Continue to hydrate with close monitoring of potassium. Echocardiography has shown intracavitary gradient which is usually due to dehydration and hyperdynamic left ventricle. There is no obvious mitral regurgitation or evidence of systolic anterior motion of mitral valve leaflet. I have advised her that she should keep a close eye on her hydration. She was on 80 of Lasix previously. We may have to put her back on lower dose eventually because it appears she had history of pulmonary edema in the past. Avoid medicines which prolonged QT interval. Monitor potassium closely. She is saying her chest pressure has improved completely and she has no symptoms now. We will pursue further testing as outpatient. The symptoms were atypical with pressure lasting for few seconds just on standing up. Thank you for allowing me to participate in the care of your patient. Please feel free to contact me if you have any questions. Time Spent With Patient Time: Total time managing care of this patient today ____ minutes. Progress Note: Quality Stroke Does the patient have a stroke diagnosis?: No Procedures Date of Service Date of Service: 07/08/24
[2024-07-08] MEDS: Potassium Chloride/H20 10 MEQ/100 ML PIGGYBACK 100 MEQ IV ×2 (10:31→11:52)
--- NOTE | 2024-07-08 11:06 | P.PNIM_ITS ---
Subjective Subjective Date of Service: 07/08/24 Interval History: chest pressure and dyspnea resolved This history was taken in [place] from the patient. Review of Systems Review of Systems: Yes all other systems are reviewed and are negative Physical Exam 2 Vital Signs: Vital Signs: Last Vital Signs Temp 97.6 F 07/08/24 07:21 Pulse 112 H 07/08/24 08:28 Resp 18 07/08/24 08:28 BP 124/76 07/08/24 07:21 Pulse Ox 97 07/08/24 07:21 O2 Del Method Room Air 07/08/24 07:21 BMI result Body Mass Index 28.6 Gen: in no acute distress HEENT: sclera anicteric, moist mucus membranes Neck: supple Lungs: clear to auscultation bilaterally Heart: regular rate and rhythm, 2/6 systolic murmur Abd: soft, non-tender, non-distended Ext: no edema Skin: warm/well-perfused Neuro: alert and oriented x3, no focal findings Psych: appropriate affect Objective Data Active Medications Acetaminophen (Acetaminophen 325 Mg Tablet) 650 mg PO Q6H PRN PRN Reason: Pain, Mild 1-3,fever,headache Last Admin: 07/07/24 16:10 Dose: 650 mg Documented By: KELLY Amitriptyline HCl (Amitriptyline Hcl 10 Mg Tablet) 20 mg PO BEDTIME [facility] Last Admin: 07/07/24 22:03 Dose: 20 mg Documented By: MARK Aripiprazole (Aripiprazole 20 Mg Tablet) 20 mg PO DAILY [facility] Last Admin: 07/08/24 08:12 Dose: 20 mg Documented By: ROMEO Atorvastatin Calcium (Atorvastatin Calcium 10 Mg Tablet) 10 mg PO BEDTIME [facility] Last Admin: 07/07/24 21:27 Dose: 10 mg Documented By: MARK Baclofen (Baclofen 10 Mg Tablet) 5 mg PO TID PRN PRN Reason: Muscle Spasm Buspirone HCl (Buspirone Hcl 5 Mg Tablet) 15 mg PO TID [facility] Last Admin: 07/08/24 08:13 Dose: 15 mg Documented By: ROMEO Calcium Carbonate (Calcium Carbonate 750 Mg Tab.Chew) 750 mg PO Q4H PRN PRN Reason: Heartburn Calcium Carbonate/Cholecalciferol (Calcium + Vitamin D 250 Mg Tablet) 250 mg PO BID [facility] Last Admin: 07/08/24 08:13 Dose: 250 mg Documented By: ROMEO Dextrose (Dextrose 50 % 25 Gm/50 Ml Syringe) 25 gm IVPUSH Q15M PRN; Protocol PRN Reason: per Hypoglycemia Standing Ord. Divalproex Sodium (Divalproex Sodium Er 500 Mg Tab.Er.24h) 500 mg PO BID [facility] Last Admin: 07/08/24 08:13 Dose: 500 mg Documented By: ROMEO Docusate Sodium (Docusate Sodium 100 Mg Capsule) 100 mg PO BID PRN PRN Reason: Constipation Duloxetine HCl (Duloxetine Hcl 60 Mg Capsule.Dr) 60 mg PO DAILY [facility] Last Admin: 07/08/24 08:12 Dose: 60 mg Documented By: ROMEO Fluticasone/Vilanterol (Fluticasone/Vilanterol 200/25 Blst.W.Dev) 1 puff INHALE DAILY [facility] Last Admin: 07/08/24 08:26 Dose: 1 puff Documented By: ALEXANDRA Gabapentin (Gabapentin 300 Mg Capsule) 600 mg PO TID [facility] Last Admin: 07/08/24 08:13 Dose: 600 mg Documented By: ROMEO Glucose (Glucose Gel 15 Gm Gel..Gram.) 15 gm PO Q15M PRN; Protocol PRN Reason: per Hypoglycemia Standing Ord. Heparin Sodium (Porcine) (Heparin Sodium,Porcine 5,000 Unit/Ml Vial) 5,000 unit SUBCUT Q12H [facility] Last Admin: 07/08/24 04:26 Dose: 5,000 unit Documented By: MARK Insulin Glargine (Insulin Glargine,Hum.Rec.Anlog 100 Unit/Ml 10 Ml Vial) 15 unit SUBCUT BEDTIME [facility] Last Admin: 07/07/24 21:30 Dose: 15 unit Documented By: MARK Insulin Human Lispro (Insulin Lispro 100 Unit/Ml 3 Ml Vial) 0 unit SUBCUT QIDACHS [facility]; Protocol Last Admin: 07/08/24 08:13 Dose: 13 unit Documented By: ROMEO Insulin Human Lispro (Insulin Lispro 100 Unit/Ml 3 Ml Vial) 7 unit SUBCUT DAILY@0730 [facility] Last Admin: 07/08/24 08:14 Dose: 7 unit Documented By: ROMEO Insulin Human Lispro (Insulin Lispro 100 Unit/Ml 3 Ml Vial) 7 unit SUBCUT DAILY@1130 [facility] Last Admin: 07/07/24 11:32 Dose: 7 unit Documented By: KELLY Magnesium Hydroxide (Milk Of Magnesia 30 Ml Oral.Susp) 30 ml PO DAILY PRN PRN Reason: Constipation Magnesium Oxide (Magnesium Oxide 400 Mg Tablet) 400 mg PO DAILY [facility] Last Admin: 07/08/24 08:13 Dose: 400 mg Documented By: ROMEO Meclizine HCl (Meclizine Hcl 25 Mg Tablet) 25 mg PO BID PRN PRN Reason: Motion Sickness/Vertigo Melatonin (Melatonin 3 Mg Tablet) 6 mg PO BEDTIME PRN PRN Reason: Insomnia Last Admin: 07/06/24 22:29 Dose: 6 mg Documented By: CARLOS Multivitamins/Vitamin C (Multivitamin Tablet) 1 tab PO DAILY [facility] Last Admin: 07/08/24 08:13 Dose: 1 tab Documented By: ROMEO Nicotine (Nicotine 14 Mg Patch.Td24) 14 mg TRANSDERMA DAILY [facility] Last Admin: 07/08/24 08:12 Dose: 14 mg Documented By: ROMEO Omeprazole (Omeprazole 40 Mg Capsule.Dr) 40 mg PO BID@0630,1630 [facility] Last Admin: 07/08/24 06:01 Dose: 40 mg Documented By: MARK Oxybutynin Chloride (Oxybutynin Chloride Er 5 Mg Tab.Er.24) 5 mg PO BEDTIME [facility] Last Admin: 07/07/24 21:34 Dose: 5 mg Documented By: MARK Oxycodone HCl (Oxycodone Hcl Immed Release 5 Mg Tablet) 5 mg PO Q6H PRN PRN Reason: Pain, Moderate(Pain Scale 4-6) Polyethylene Glycol (Polyethylene Glycol 3350 17 Gm Powd.Pack) 17 gm PO DAILY PRN PRN Reason: Constipation Last Admin: 07/07/24 18:50 Dose: 17 gm Documented By: KELLY Quetiapine Fumarate (Quetiapine Fumarate 200 Mg Tablet) 200 mg PO BEDTIME [facility] Last Admin: 07/07/24 21:28 Dose: 200 mg Documented By: MARK Senna (Sennosides 8.6 Mg Tablet) 17.2 mg PO DAILY PRN PRN Reason: Constipation Last Admin: 07/07/24 18:50 Dose: 17.2 mg Documented By: MAULIK-RIVLA Sodium Chloride (0.9 % Sodium Chloride Flush 3 Ml Syringe) 3 ml IVFLUSH QSHIFT [facility] Last Admin: 07/08/24 08:14 Dose: 3 ml Documented By: JASAC Spironolactone (Spironolactone 25 Mg Tablet) 25 mg PO DAILY [facility]; Protocol Tiotropium [place] (Tiotropium [place] 2.5 Mcg 1 Puff/2.5 Mcg Mist.Inhal) 2 puff INHALE DAILY [facility] Last Admin: 07/08/24 08:26 Dose: 2 puff Documented By: ALEXANDRA Labs 07/07/24 06:18 07/08/24 06:48 Labs: Laboratory Results - last 24 hr 07/06/24 07/07/24 07/07/24 16:59 11:05 15:24 Hold Purple Top Anion Gap Estim Creat Clear Calc Estimated GFR POC Glucose 172 H 154 H Random Glucose Calcium Magnesium Respiratory Panel Remy See Note Adenovirus (Rapid PCR) Not Detected B.pert (TEM-PCR) Not Detected B.parapertussis DNA PCR Not Detected C. pneumoniae DNA (PCR) Not Detected Coronavirus OC43 (PCR) Not Detected Coronavirus HKU1 (PCR) Not Detected Coronavirus 229E (PCR) Not Detected Coronavirus NL63 (PCR) Not Detected Human Metapneumovir PCR Not Detected Influenza A (RT-PCR) Not Detected Influenza B (RT-PCR) Not Detected M. pneumoniae (PCR) Not Detected Parainfluenza 1 (PCR) Not Detected Parainfluenza 2 (PCR) Not Detected Parainfluenza 3 (PCR) Not Detected Parainfluenza 4 (PCR) Not Detected RSV (PCR) Not Detected Entero/Rhino (PCR) Not Detected SARS-CoV-2 RNA (RT-PCR) Not Detected 07/07/24 07/08/24 07/08/24 20:01 06:48 07:10 Hold Purple Top SEE NOTE Anion Gap 18 Estim Creat Clear Calc 50.6 Estimated GFR 47 POC Glucose 251 H 266 H Random Glucose 248 H Calcium 9.6 Magnesium 2.3 Respiratory Panel Remy Adenovirus (Rapid PCR) B.pert (TEM-PCR) B.parapertussis DNA PCR C. pneumoniae DNA (PCR) Coronavirus OC43 (PCR) Coronavirus HKU1 (PCR) Coronavirus 229E (PCR) Coronavirus NL63 (PCR) Human Metapneumovir PCR Influenza A (RT-PCR) Influenza B (RT-PCR) M. pneumoniae (PCR) Parainfluenza 1 (PCR) Parainfluenza 2 (PCR) Parainfluenza 3 (PCR) Parainfluenza 4 (PCR) RSV (PCR) Entero/Rhino (PCR) SARS-CoV-2 RNA (RT-PCR) Microbiology Microbiology Results: Microbiology 07/06/24 21:00 Blood Culture - Preliminary Blood - Venous No growth after 24 hours. 07/06/24 21:00 Blood Culture - Preliminary Blood - Venous No growth after 24 hours. Assessment and Plan (1) Drug side effects: Status: Acute (2) Uncontrolled diabetes mellitus with hyperglycemia: Status: Acute Plan d3 for 54yo F with DM2 + TRINIDAD presenting with weakness, chest pressure; found to have hyperglycemia + hypoK chest pressure - resolved, outpatient workup with Cardiology chronic HFpEF - was on furosemide 80 mg daily as outpatient, 40 mg IV bid here, but TTE shows intracavitary gradient suspicious for dehydration so will hold furosemide; give spironolactone hypoK prolonged QTc - replete IV/PO, recheck in AM pseudohypoNa - not hypoNa; due to hyperglycemia DM2 with hyperglycemia - due to missing medications; resolved after IV fluids and basal-bolus insulin mood disorder - continue amitriptylline, aripiprazole, buspirone, divalproex, duloxetine, quetiapine peripheral neuropathy - continue gabapentin HLD - continue atorvastatin GERD - PPI TRINIDAD - night-time CPAP asthma - continue Breo, Spiriva, prn albuterol dispo - PT consult VTE ppx - UFH Quality Stroke Does the patient have a stroke diagnosis?: No VTE Prior VTE?: No VTE Risk Level:: Medical - moderate - high VTE Device Contraindication: Treatment Not Indicated VTE Drug Contraindication: N/A - Med Ordered
[2024-07-08] MEDS: Spironolactone 25 MG TABLET PO (11:14)
[2024-07-08 11:15] LABS: Glucose, Whole Blood 260 mg/dL (60-115)
--- NOTE | 2024-07-08 15:08 | MHC.CM.PN ---
Per rounds, pt is not ready for DC. PT eval rec. no services for pt. CM to follow for DC needs.
[2024-07-08 15:59] LABS: Glucose, Whole Blood 234 mg/dL (60-115)
[2024-07-08 20:29] LABS: Glucose, Whole Blood 194 mg/dL (60-115)
[2024-07-08] MEDS: oxyBUTYnin chloride ER 5 MG TAB.ER.24 PO (21:00)
[2024-07-08] MEDS: QUEtiapine Fumarate 200 MG TABLET PO (21:01)
[2024-07-08] MEDS: Amitriptyline HCl 10 MG TABLET 20 MG PO (21:02)
[2024-07-08] MEDS: Atorvastatin Calcium 10 MG TABLET PO (21:03)
[2024-07-08] MEDS: Insulin Glargine,Hum.rec.anlog 100 UNIT/ML 10 ML VIAL 18 UNIT SUBCUT (21:04)
--- NOTE | 2024-07-09 | ECG_ITS ---
Test Reason : checking qt Blood Pressure : */* mmHG Vent. Rate : 94 BPM Atrial Rate : 94 BPM P-R Int : 132 ms QRS Dur : 84 ms QT Int : 394 ms P-R-T Axes : 56 20 97 degrees QTcB Int : 492 ms Normal sinus rhythm Possible Left atrial enlargement Nonspecific ST and T wave abnormality Prolonged QT Abnormal ECG When compared with ECG of 08-Jul-2024 10:34, No significant change was found Referred By: Deshawn Tay Electronically Signed By: Wilbur Cervantes
[2024-07-09 04:00] VITALS: BP 102/65; PULSE 79; RESP 20; TEMP 36.3; O2SAT 100
[2024-07-09] MEDS: Heparin Sodium,Porcine 5,000 UNIT/ML VIAL 5000 UNIT SUBCUT (04:15)
[2024-07-09 05:52] VITALS: BMI 28.3
[2024-07-09] MEDS: Omeprazole 40 MG CAPSULE.DR PO (05:53)
[2024-07-09 07:44] LABS: Glucose, Whole Blood 276 mg/dL (60-115)
[2024-07-09 07:49] LABS: B Type Natriuretic Peptide 99 pg/mL (<100)
[2024-07-09 07:59] LABS: Anion Gap 16 (12-20); Blood Urea Nitrogen 15 mg/dL (9-16); Calcium 9.4 mg/dL (8.4-10.2); Carbon Dioxide 27 mmol/L (22-29); Chloride 93 mmol/L (96-108); Creatinine Clr Calc Pharmacy 59.9; Estimated Glomerular Filt Rate 57; Glucose Random 268 mg/dL (60-115); Magnesium 2.1 mg/dL (1.6-2.6); Potassium 3.6 mmol/L (3.3-5.1); Sodium 132 mmol/L (135-145)
[2024-07-09 08:00] VITALS: BP 98/67; PULSE 99; RESP 20; TEMP 36.2; O2SAT 96
[2024-07-09] MEDS: Nicotine 14 MG PATCH.TD24 TRANSDERMA (08:16)
[2024-07-09] MEDS: busPIRone HCl 5 MG TABLET 15 MG PO (08:16)
[2024-07-09] MEDS: Magnesium Oxide 400 MG TABLET PO (08:16)
[2024-07-09] MEDS: Gabapentin 300 MG CAPSULE 600 MG PO (08:16)
[2024-07-09] MEDS: Multivitamin TABLET 1 TAB PO (08:17)
[2024-07-09] MEDS: Insulin Lispro 100 UNIT/ML 3 ML VIAL SUBCUT (08:17)
[2024-07-09] MEDS: Divalproex Sodium ER 500 MG TAB.ER.24H PO (08:17)
[2024-07-09] MEDS: Spironolactone 25 MG TABLET PO (08:17)
[2024-07-09] MEDS: DULoxetine HCl 60 MG CAPSULE.DR PO (08:17)
[2024-07-09] MEDS: ARIPiprazole 20 MG TABLET PO (08:17)
[2024-07-09] MEDS: Insulin Lispro 100 UNIT/ML 3 ML VIAL 7 UNIT SUBCUT (08:17)
[2024-07-09] MEDS: Calcium + Vitamin D 250 MG TABLET PO (08:17)
[2024-07-09] MEDS: 0.9 % Sodium Chloride Flush 3 ML SYRINGE IVFLUSH (08:18)
[2024-07-09] MEDS: Tiotropium Bromide 2.5 mcg 1 PUFF/2.5 MCG MIST.INHAL 2 PUFF INHALE (08:43)
[2024-07-09] MEDS: Fluticasone/Vilanterol 200/25 BLST.W.DEV 1 PUFF INHALE (08:43)
[2024-07-09 08:45] VITALS: PULSE 100; RESP 18; O2SAT 94
--- NOTE | 2024-07-09 10:56 | P.F2F_ITS ---
Service Date Service Date: 07/09/24 Encounter Date of encounter: 07/09/24 Reasons for Services Signs and symptoms assessed: CHF DM Reason for assisted: diabetic teaching, monitoring of unstable blood sugar, medication management, medication treatment and teach disease management MD Overseeing Care: Isabel Lewis Homebound: Leaving the home is medically contraindicated at this time without the asist of a device and/or another person due th the listed conditions above and below. Reason homebound: weakness related to hospital stay Certification: Based on the above findings, I certify that this patient is confined to the home and needs intermittent assisted care, physical therapy and/or speech therapy, or continues to need occupational therapy. The patient is under my care, and I have initiated the establishment of the plan of care. The patient will be followed by a physician who will periodically review the plan of care. Time Spent With Patient Time: Total time managing care of this patient today ____ minutes.
--- NOTE | 2024-07-09 10:58 | PM.DS ---
DS: Providers Provider Date of Service: 07/09/24 Date of admission: 07/06/24 16:14 Date of discharge: 07/09/24 Primary care physician: Isabel Lewis DO Consults: 07/07/24 09:11 Consult to Cardiology Routine Consulting Provider: [facility] Reason for consultation: CHF DS: Diagnosis Discharge Diagnosis (1) Uncontrolled diabetes mellitus with hyperglycemia: Status: Acute (2) Acute hypokalemia: Status: Acute (3) Chest pressure: Status: Acute DS: Summary Hospital Course Hospital Course: From the history and physical by the admitting hospitalist, Linsey Gonzalez NP, 07/06/24: 54 year old women presenting to the emergency department today with chest pressure and weakness since her discharge on 06/19/24. She reported feeling unwell since then with substernal chest pressure with no radiation or other associated symptoms, She described feeling cold from her feet to her hands, but not actually being cold . Patient states that over the last few days she has felt generally unwell. Patient denies any dizziness, lightheadedness, abdominal pain, nausea, vomiting, fever, chills, blurry vision, double vision, loss of vision, difficulty breathing, shortness of breath, back pain, night sweats, pain with urination, increased urinary frequency, increased urinary urgency, blood in her urine or stool, syncope or a near syncopal episode, recent trauma or falls, bowel incontinence, bladder incontinence, or any other complaints at this time. in the ED, UA neg, cxr without consolidation, potassium 2.5, sodium 130, BS 503. Patient received 5 units of IVP insulin, 20 meq of potassium, LR. She will be admitted for further management and treatment of hyperglycemia and electrolyte abnormalities. 54yo F with DM2 + TRINID[place] presenting with weakness, chest pressure; found to have hyperglycemia + hypoK and admitted to the telemetry unit hypoK with QTc prolongation - Likely due to furosemide. Potassium was repleted IV/PO and furosemide discontinued and replaced with spironolactone as below. QTc improved. K on discharge 3.6. Repeat BMP in 1 week ordered. chronic HFpEF - Was on furosemide 80 mg daily as outpatient. Initially placed on 40 mg IV bid here, but TTE showed intracavitary gradient suspicious for dehydration, so furosemide discontinued in consultation with Cardiology. Due to hypokalemia, spironolactone was started instead. - TTE 07/07/24: - Normal left ventricular cavity size. There is mildly increased left ventricular wall thickness. The left ventricular systolic function is hyperdynamic. The visually estimated ejection fraction is >70%. - There is dynamic mid left ventricular obstruction. - E/E prime ratio is between 8 and 15 consistent with indeterminate filling pressures. - Normal right ventricular cavity size and systolic function. chest pressure - Troponins indeterminate/flat. Resolved with treatment of hyperglycemia and hypokalemia. Cardiology consulted and recommended outpatient stress testing. DM2 with hyperglycemia - Due to missing medications; resolved after IV fluids and basal-bolus insulin. Upon discharge, in order to avoid hypoglycemia, Tresiba reduced to 40 units daily with instructions to self-titrate by 4 units daily to achieve am BG of <140. She was discharged home with VNA services for DM and CHF monitoring. She should follow up with her transportation mechanic and her primary care doctor in 1 week. Time Attestation Discharge Coordination Time (in mins): 40 Quality: Safe Use of Opioids Does Pt have an Active Cancer Diagnosis on the Problem List?: No Quality: Stroke Does the patient have a stroke diagnosis?: No Physical Exam Vital Signs: Vital Signs: Last Vital Signs Temp 97.1 F 07/09/24 08:00 Pulse 100 07/09/24 08:45 Resp 18 07/09/24 08:45 BP 98/67 07/09/24 08:00 Pulse Ox 96 07/09/24 08:00 O2 Del Method Room Air 07/09/24 08:00 BMI result Body Mass Index 28.3 Gen: in no acute distress HEENT: sclera anicteric, moist mucus membranes Neck: supple Lungs: clear to auscultation bilaterally Heart: regular rate and rhythm, 2/6 systolic murmur Abd: soft, non-tender, non-distended Ext: no edema Skin: warm/well-perfused Neuro: alert and oriented x3, no focal findings Psych: appropriate affect DS: Data Data Completed and Pending Completed studies during hospitalization [Text1]: Laboratory Results WBC 11.1 X10*3/uL (4.8-10.8) H 07/07/24 06:18 RBC 4.61 X10*6/uL (4.20-5.50) 07/07/24 06:18 Hgb 12.6 g/dl (12.0-16.0) 07/07/24 06:18 Hct 36.4 % (37.0-47.0) L 07/07/24 06:18 MCV 79.0 fL (80.0-98.0) L 07/07/24 06:18 MCH 27.3 pg (27.0-33.0) 07/07/24 06:18 MCHC 34.6 g/dl (31.0-35.0) 07/07/24 06:18 RDW 15.0 % (11.0-16.0) 07/07/24 06:18 Plt Count 318 X10*3/uL (160-400) 07/07/24 06:18 MPV 11.7 fL (9.4-12.3) 07/07/24 06:18 Immature Gran % (Auto) 0.4 % (0.0-0.4) 07/07/24 06:18 Neut % (Auto) 56.2 % (45-73) 07/07/24 06:18 Lymph % (Auto) 34.4 % (20-40) 07/07/24 06:18 Cannon % (Auto) 6.4 % (2-11) 07/07/24 06:18 Eos % (Auto) 1.8 % (0-4) 07/07/24 06:18 Baso % (Auto) 0.8 % (0-2) 07/07/24 06:18 Lymph # (Auto) 3.8 X10*3/uL (1.2-4.9) 07/07/24 06:18 Cannon # (Auto) 0.7 X10*3/uL (0.1-1.2) 07/07/24 06:18 Eos # (Auto) 0.2 X10*3/uL (0.0-0.4) 07/07/24 06:18 Baso # (Auto) 0.1 X10*3/uL (0.0-0.2) 07/07/24 06:18 Abs Immat Gran (auto) 0.04 X10*3/uL (0.00-0.03) H 07/07/24 06:18 Absolute Neuts (auto) 6.3 x10*3/uL (2.0-8.3) 07/07/24 06:18 Absolute Nucleated RBC 0.000 X10*3/uL (0.0-0.012) 07/07/24 06:18 Nucleated RBC % (auto) 0.0 /100WBC (0.0-0.2) 07/07/24 06:18 Hold Purple Top SEE NOTE 07/08/24 06:48 PT 11.6 SEC (10.9-12.4) 07/06/24 14:51 INR 1.0 (0.9-1.1) 07/06/24 14:51 APTT 26.2 SEC (26.0-36.8) 07/06/24 14:51 VBG pH 7.53 (7.32-7.43) H 07/06/24 17:09 VBG pCO2 42 mmHg 07/06/24 17:09 VBG pO2 66 mmHg 07/06/24 17:09 VBG HCO3 36 mmol/L (22-26) H 07/06/24 17:09 VBG O2 Saturation 87.0 % 07/06/24 17:09 VBG Base Excess 12.0 mmol/L 07/06/24 17:09 Sodium 132 mmol/L (135-145) L 07/09/24 07:20 Potassium 3.6 mmol/L (3.3-5.1) 07/09/24 07:20 Chloride 93 mmol/L (96-108) L 07/09/24 07:20 Carbon Dioxide 27 mmol/L (22-29) 07/09/24 07:20 Anion Gap 16 (12-20) 07/09/24 07:20 BUN 15 mg/dL (9-16) 07/09/24 07:20 Creatinine 1.00 mg/dL (0.5-1.4) 07/09/24 07:20 Estim Creat Clear Calc 59.9 07/09/24 07:20 Estimated GFR 57 07/09/24 07:20 POC Glucose 276 mg/dL (60-115) H 07/09/24 07:40 Random Glucose 268 mg/dL (60-115) H 07/09/24 07:20 Estimat Average Glucose 272 mg/dL 07/07/24 06:18 Hemoglobin A1c % 11.1 % (<6.0) H 07/07/24 06:18 Calcium 9.4 mg/dL (8.4-10.2) 07/09/24 07:20 Magnesium 2.1 mg/dL (1.6-2.6) 07/09/24 07:20 Total Bilirubin 0.4 mg/dL (0.0-1.0) 07/07/24 06:18 AST 21 U/L (5-31) 07/07/24 06:18 ALT 13 U/L (0-31) 07/07/24 06:18 Alkaline Phosphatase 170 U/L (39-117) H 07/07/24 06:18 Troponin I High Sens 58.9 ng/L (<3.5-17.0) H* 07/06/24 14:51 B-Natriuretic Peptide 99 pg/mL (<100) 07/09/24 07:20 Total Protein 7.2 g/dL (6.5-8.0) 07/07/24 06:18 Albumin 3.8 g/dL (3.5-5.0) 07/07/24 06:18 Beta-Hydroxybutyrate 1.40 mmol/L (0.02-0.27) H 07/06/24 13:41 Urine Color Yellow 07/06/24 13:41 Urine Appearance Clear 07/06/24 13:41 Urine pH 6.5 (5.0-9.0) 07/06/24 13:41 Ur Specific [place] 1.020 (1.005-1.025) 07/06/24 13:41 Urine Protein Negative mg/dL (Neg-Trace) 07/06/24 13:41 Urine Glucose (UA) >=1000 mg/dL (Negative) H 07/06/24 13:41 Urine Ketones Negative mg/dL (Negative) 07/06/24 13:41 Urine Blood Negative (Negative) 07/06/24 13:41 Urine Nitrite Negative (Negative) 07/06/24 13:41 Ur Leukocyte Esterase Negative (Negative) 07/06/24 13:41 Urine RBC 0-2 /HPF (0-2) 07/06/24 13:41 Urine WBC 0-5 /HPF (0-5) 07/06/24 13:41 Ur Squamous Epith Cells 0-2 /HPF (0-2) 07/06/24 13:41 Urine Bacteria None Seen (None Seen) 07/06/24 13:41 Hyaline Casts 0-2 /LPF (0-2) 07/06/24 13:41 Respiratory Panel Remy See Note 07/06/24 16:59 Adenovirus (Rapid PCR) Not Detected (Not Detect.) 07/06/24 16:59 B.pert (TEM-PCR) Not Detected (Not Detect.) 07/06/24 16:59 B.parapertussis DNA PCR Not Detected (Not Detect.) 07/06/24 16:59 C. pneumoniae DNA (PCR) Not Detected (Not Detect.) 07/06/24 16:59 Coronavirus OC43 (PCR) Not Detected (Not Detect.) 07/06/24 16:59 Coronavirus HKU1 (PCR) Not Detected (Not Detect.) 07/06/24 16:59 Coronavirus 229E (PCR) Not Detected (Not Detect.) 07/06/24 16:59 Coronavirus NL63 (PCR) Not Detected (Not Detect.) 07/06/24 16:59 Human Metapneumovir PCR Not Detected (Not Detect.) 07/06/24 16:59 Influenza A (RT-PCR) Not Detected (Not Detect.) 07/06/24 16:59 Influenza Type A (PCR) NEGATIVE (Negative) 07/06/24 13:41 Influenza B (RT-PCR) Not Detected (Not Detect.) 07/06/24 16:59 Influenza Type B (PCR) NEGATIVE (Negative) 07/06/24 13:41 M. pneumoniae (PCR) Not Detected (Not Detect.) 07/06/24 16:59 Parainfluenza 1 (PCR) Not Detected (Not Detect.) 07/06/24 16:59 Parainfluenza 2 (PCR) Not Detected (Not Detect.) 07/06/24 16:59 Parainfluenza 3 (PCR) Not Detected (Not Detect.) 07/06/24 16:59 Parainfluenza 4 (PCR) Not Detected (Not Detect.) 07/06/24 16:59 RSV (PCR) Not Detected (Not Detect.) 07/06/24 16:59 RSV RNA Qual (PCR) NEGATIVE (Negative) 07/06/24 13:41 Entero/Rhino (PCR) Not Detected (Not Detect.) 07/06/24 16:59 SARS-CoV-2 RNA (RT-PCR) Not Detected (Not Detect.) 07/06/24 16:59 S. pyogenes GrpA MILI Negative (Negative) 07/06/24 16:59 Impressions Chest X-Ray 07/06/24 14:31 IMPRESSION: Pulmonary edema in the correct clinical settings. Electronically signed by: Joey Camarillo MD 07/06/2024 02:42 PM EST Discharge Plan Discharge Anticipated Discharge Date/Time: 07/09/24 10:33 Patient Disposition: Home Health Service Discharge Diagnosis: hypokalemia chest pressure hyperglycemia from untreated diabetes Referrals: Jose LINARES [Outside] - 1 Week Dejuan Bernabe MD [Physician] - 1 Week Isabel Lewis DO [Primary Care Provider] - 1 Week Discharge Medications: New nicotine 14 mg/24 hr Patch 24 Hour 14 mg transdermal DAILY Qty: 30 0RF spironolactone 25 mg Tablet 25 mg PO DAILY Qty: 30 0RF Protocol: Hold for SBP< HOLD for SBP < : 90 Continued amitriptyline 10 mg tablet 2 tab PO BEDTIME oxybutynin chloride 5 mg tablet extended release 24 hr 1 tab PO BEDTIME calcium carbonate-vitamin D3 600 mg-10 mcg (400 unit) tablet 1 tab PO BID insulin aspart U-100 [Novolog FlexPen U-100 Insulin] 100 unit/mL (3 mL) insulin pen See Protocol subcut BIDAC Protocol: Insulin Correction Scale Less than or equal to 110 ---- Give (units): 0 111 to 150 Give (units): 0 151 to 200 Give (units): 2 201 to 250 Give (units): 4 251 to 300 Give (units): 6 301 to 350 Give (units): 8 Greater than 350 Give (units): 10 Call MD if Blood Glucose > : 350 Synjardy 12.5-1,000 mg tablet 1 tab PO BID Actemra ACTPen 162 mg/0.9 mL pen injector SUBCUT Mounjaro 12.5 mg/0.5 mL pen injector 12.5 mg subcut WE atorvastatin [Lipitor] 10 mg tablet 10 mg PO BEDTIME duloxetine 60 mg capsule,delayed release(DR/EC) 60 mg PO DAILY riboflavin (vitamin B2) 100 mg tablet 200 mg PO BID gabapentin 300 mg capsule 600 mg PO TID baclofen 5 mg tablet 5 mg PO TID PRN (Reason: Muscle Spasm) (DME) pen needle, diabetic [UltiCare Pen Needle] 32 gauge x 5/32 needle See Rx Instructions .ROUTE DIRECTED Qty: 50 Rx Instructions: As directed melatonin 5 mg tablet 10 mg PO BEDTIME Tab-A-Manjeet Multivitamin w-iron 15 mg iron- 400 mcg tablet 1 tab PO DAILY budesonide-formoterol [Symbicort] 160-4.5 mcg/actuation HFA aerosol inhaler 2 puff inhalation BID magnesium oxide 400 mg (241.3 mg magnesium) tablet 400 mg PO DAILY aripiprazole 20 mg tablet 20 mg PO DAILY buspirone 15 mg tablet 15 mg PO TID (DME) leg brace Misc See Rx Instructions .Route Qty: 1 0RF Rx Instructions: As directed :Use during day when active. DO not wear to bed albuterol sulfate [Ventolin HFA] 90 mcg/actuation HFA aerosol inhaler 2 inh inhalation Q4H PRN (Reason: Shortness Of Breath Or Wheezing) meclizine 25 mg tablet 25 mg PO BID PRN (Reason: Motion Sickness/Vertigo) divalproex 500 mg tablet extended release 24 hr 500 mg PO BID albuterol sulfate 2.5 mg /3 mL (0.083 %) solution for nebulization 2.5 mg inhalation QID PRN (Reason: Shortness Of Breath Or Wheezing) omeprazole 20 mg capsule,delayed release(DR/EC) 40 mg PO BID@0630,1630 (DME) FreeStyle Jt 2 Sensor Kit See Rx Instructions .ROUTE .MEDSUPPLY Qty: 1 Rx Instructions: As directed quetiapine 200 mg tablet 200 mg PO BEDTIME polyethylene glycol 3350 17 gram/dose powder 17 g PO DAILY PRN (Reason: Constipation) Spiriva Respimat 2.5 mcg/actuation mist 2 puff inhalation DAILY Changed insulin degludec [Tresiba FlexTouch U-200] 200 unit/mL (3 mL) insulin pen 40 unit subcut DAILY Qty: 9 0RF Discontinued furosemide 80 mg tablet 80 mg PO DAILY Discharge Orders: Discharge Order (Routine); Ordered 07/09/24 Ordered By: Deshawn Tay Diet: Diabetic diet Activity on Discharge: As tolerated Stand Alone Forms: Patient Portal Discharge page Print Language: Kinyarwanda Other Ambulatory Orders: Basic Metabolic Panel (Routine) Timeframe: 1 Week Facility: [facility] - Location: Laboratory Ordered By: Deshawn Tay Care Plan Goals: cardiac health avoid complications of diabetes Health Concerns: hypokalemia chest pressure hyperglycemia from untreated diabetes Plan of Treatment: Home with VNA services for CHF/DM monitoring. Low-sodium, diabetic diet. Low-sodium diet: less than 2000 mg of sodium daily. Weigh yourself daily and call your doctor if your weight goes up by more than 3 lb/day or 5 lb/week. Stop furosemide for now. Your transportation mechanic may resume it, possibly at a lower dose. Until then, take spironolactone 25 mg once daily. Check BMP in 1 week. Follow up with your transportation mechanic Dr Bernabe in 1 week and arrange outpatient stress testing. Reduce Tresiba to 40 units daily for now; increase by 4 units every morning until blood glucose before breakfast is less than 140. Quit smoking; use nicotine patch to help. Please follow up with your primary care doctor within 1 week. Return to the hospital if you experience recurrent or worsening symptoms. Assessment: See Discharge Summary.
--- NOTE | 2024-07-09 11:07 | MHC.CM.PN ---
Pt has been medically cleared for DC, she will go home via family transport. CM asked her preference of VNA, she did not have one, asked if OK to refer to [facility], pt said yes. She will have home care services from [facility].
--- NOTE | 2024-07-09 11:10 | P.PNCA_ITS ---
Subjective Subjective Date of Service: 07/09/24 Interval history: Seen and examined at bedside. Feeling better and will be going home today. Physical Exam Vital Signs: Last Vital Signs Temp 97.1 F 07/09/24 08:00 Pulse 100 07/09/24 08:45 Resp 18 07/09/24 08:45 BP 98/67 07/09/24 08:00 Pulse Ox 96 07/09/24 08:00 O2 Del Method Room Air 07/09/24 08:00 BMI result Body Mass Index 28.3 GENERAL APPEARANCE: in no acute distress, pleasant. NECK: no carotid bruit, no jugular venous distention. SKIN: no suspicious lesions, warm and dry. HEART: Systolic murmur all over the precordium, regular rate and rhythm. With handgrip the murmur does not change. LUNGS: clear to auscultation bilaterally. ABDOMEN: soft, nontender. EXTREMITIES: no edema. PERIPHERAL PULSES: equal. NEUROLOGIC: No gross deficits, AAO X 3 Objective Labs and Meds 07/07/24 06:18 07/09/24 07:20 Lab results: Laboratory Results - last 24 hr 07/08/24 07/08/24 07/08/24 11:09 15:53 20:25 Sodium Potassium Chloride Carbon Dioxide Anion Gap BUN Creatinine Estim Creat Clear Calc Estimated GFR POC Glucose 260 H 234 H 194 H Random Glucose Calcium Magnesium B-Natriuretic Peptide 07/09/24 07/09/24 07:20 07:40 Sodium 132 L Potassium 3.6 Chloride 93 L Carbon Dioxide 27 Anion Gap 16 BUN 15 Creatinine 1.00 Estim Creat Clear Calc 59.9 Estimated GFR 57 POC Glucose 276 H Random Glucose 268 H Calcium 9.4 Magnesium 2.1 B-Natriuretic Peptide 99 Progress Note: A&P Assessment and plan (1) Acute electrocardiogram changes: Status: Acute (2) Acute hypokalemia: Status: Acute (3) Chest pressure: Status: Acute Plan [age] year female presenting with hypokalemia and weakness. She had EKGs changes due to hypokalemia. She had some chest tightness on standing which lasted for few seconds. This has resolved. EKG improved somewhat with potassium repletion but did not normalize completely. Stop the Lasix for now. Spironolactone 25 mg daily. She will monitor her weight at home and if she gains more than 2 lb she will reach out to her guide foreign tour Dr. Bernabe. Echocardiography has shown intracavitary gradient which is usually due to dehydration and hyperdynamic left ventricle. There is no obvious mitral regurgitation or evidence of systolic anterior motion of mitral valve leaflet. I have advised her that she should keep a close eye on her hydration. Euvolemic currently. Avoid medicines which prolonged QT interval. Monitor potassium closely. She can have further workup for chest discomfort with her primary guide foreign tour Dr. Bernabe. Thank you for allowing me to participate in the care of your patient. Please feel free to contact me if you have any questions. Time Spent With Patient Time: Total time managing care of this patient today ____ minutes. Progress Note: Quality Stroke Does the patient have a stroke diagnosis?: No Procedures Date of Service Date of Service: 07/09/24
== END 2024-07-09 11:02 | disposition home health service (06) | DRG 638 ==
LOC: HO.ED 14:29 → HO.EDOVER 16:20 → HO.IMC 17:07
PROVIDERS: Hospitalist; Internal Medicine; Physician Assistant Medical; Admitting Provider Nurse Practitioner Acute Care; Emergency Provider Emergency Medicine; PCP Family Medicine; Visit Provider Family Medicine
DX: E11.65 Type 2 diabetes mellitus with hyperglycemia (principal); I50.32 Chronic diastolic (congestive) heart failure; F17.210 Nicotine dependence, cigarettes, uncomplicated; T38.3X6A Underdosing of insulin and oral hypoglycemic [antidiabetic] drugs, initial encounter; E86.0 Dehydration; G47.33 Obstructive sleep apnea (adult) (pediatric); T50.1X5A Adverse effect of loop [high-ceiling] diuretics, initial encounter; R94.31 Abnormal electrocardiogram [ECG] [EKG]; J45.909 Unspecified asthma, uncomplicated; K21.9 Gastro-esophageal reflux disease without esophagitis; E87.6 Hypokalemia; Z71.6 Tobacco abuse counseling; Z79.4 Long term (current) use of insulin; Z79.899 Other long term (current) drug therapy
CPT/HCPCS: 0241U; 36415; 71045; 80048; 80053; 81001; 82010; 82803; 82947; 83036; 83735; 83880; 84484; 85025; 85610; 85730; 87040; 87633; 87651; 93005; 93306; 97161; 99285; J1644; J1940; J3480; J7120; Q9957

== ENCOUNTER → 2024-07-06 12:49 | Outpatient (BNV) | payer OTHER, SELFPAY | PROVIDERS: Emergency Provider Emergency Medicine; PCP Family Medicine; Visit Provider Internal Medicine Cardiovascular Disease | DX: R94.31 Abnormal electrocardiogram [ECG] [EKG] (principal) | CPT/HCPCS: 93010 ==

== ENCOUNTER → 2024-07-06 14:31 | Outpatient (BNV) | payer OTHER, SELFPAY | PROVIDERS: Emergency Provider Emergency Medicine; PCP Family Medicine; Visit Provider Radiology Diagnostic Radiology | DX: J81.0 Acute pulmonary edema (principal) | CPT/HCPCS: 71045 ==

== ENCOUNTER 2024-07-06 16:14 | Outpatient (BNV) | payer OTHER, SELFPAY | END 2024-07-07 11:14 | PROVIDERS: Admitting Provider Nurse Practitioner Acute Care; Emergency Provider Emergency Medicine; PCP Family Medicine; Visit Provider Internal Medicine Cardiovascular Disease | DX: R94.31 Abnormal electrocardiogram [ECG] [EKG] (principal) | CPT/HCPCS: 93010 ==

== ENCOUNTER → 2024-07-06 16:14 | Outpatient (BNV) | payer OTHER, SELFPAY | PROVIDERS: Admitting Provider Nurse Practitioner Acute Care; Emergency Provider Emergency Medicine; PCP Family Medicine; Visit Provider Internal Medicine Cardiovascular Disease | DX: E87.6 Hypokalemia (principal); R94.31 Abnormal electrocardiogram [ECG] [EKG]; R07.89 Other chest pain | CPT/HCPCS: 99223 ==

== ENCOUNTER → 2024-07-06 16:14 | Outpatient (BNV) | payer OTHER, SELFPAY | PROVIDERS: Admitting Provider Nurse Practitioner Acute Care; Emergency Provider Emergency Medicine; PCP Family Medicine; Visit Provider Nurse Practitioner Acute Care | DX: E11.65 Type 2 diabetes mellitus with hyperglycemia (principal); E87.6 Hypokalemia; R07.89 Other chest pain | CPT/HCPCS: 99223; 99232; 99239; G0180 ==

== ENCOUNTER 2024-07-23 11:25 | Outpatient (REF) | payer OTHER, SELFPAY ==
--- OUTSIDE RECORDS SUMMARY | 2024-07-23 12:44 | XMS_ITS | Encounter Summary ---
Author Organization [employer] Address [address] [facility] [address] [place] [address] Care Team Providers Care Tunnel Man Name Role Phone Isabel Lewis DO Primary Care Provider [phone] Marti Elder PharmD Unavailable [phone] Dimitris Arambula AUDIO PRODUCTION INSTRUCTOR Unavailable Unavailable Reason for Visit * Reason Comments Med Refill Encounter Details Date Type Department Care Team (Late st Contact Info) Description 03/04/2024 Refill [facility] [address] [place], [place] [phone] Isabel Lewis DO [address] [place], [place] [phone] Social History Tobacco Use Types Packs/Day Years [...] Care Team (Late st Contact Info) Description 08/04/2024 9:15 AM EST Office Visit [facility] [address] [place] [phone] Sheila Gonzales MD [address] [place] [phone] 08/05/2024 10:30 AM EST Medication Management [facility] [address] [place] [phone] Marti Elder PharmD [address] [place] [phone] documented as of this encounter Goals Goal [...] documented as of this encounter Care Teams Tunnel Man Relationship Specialty Start Date End Date Isabel Lewis DO [address] [place] [address] PCP - General Family Medicine 06/03/18 Marti Elder PharmD [address] [place] [phone] Pharmacist Internal Medicine 02/22/23 Dimitris Arambula FNP [address] [place] [phone] Nurse Practitioner Family Medicine 04/24/23 documented as of this encounter
--- OUTSIDE RECORDS SUMMARY | 2024-07-23 12:45 | XMS_ITS | Encounter Summary ---
Author Organization [employer] Address [address] [facility] [address] [place] [address] Care Team Providers Care Sales Activity Manager Name Role Phone Isabel Lewis DO Primary Care Provider [phone] Marti Elder PharmD Unavailable [phone] Dimitris Arambula Unavailable Unavailable Reason for Visit * Reason Comments Med Refill Encounter Details Date Type Department Care Team (Late st Contact Info) Description 04/01/2023 Refill [facility] [address] [place] [address] Dimitris Arambula FNP Mood disorder (CMS/HCC) Social [...] Description 08/04/2024 9:15 AM EST Office Visit [facility] [address] [place] [phone] Sheila Gonzales MD [address] [place] [phone] 08/05/2024 10:30 AM EST Medication Management [address] [phone] Marti Elder PharmD [address] [place] [phone] documented as of this encounter Goals Goal [...] documented as of this encounter Care Teams Sales Activity Manager Relationship Specialty Start Date End Date Isabel Lewis DO [address] [place] [address] PCP - General Family Medicine 06/03/18 Marti Elder PharmD [address] [place] [phone] Pharmacist Internal Medicine 02/22/23 Dimitris Arambula FNP [address] [place] [phone] Nurse Practitioner Family Medicine 04/24/23 documented as of this encounter
--- OUTSIDE RECORDS SUMMARY | 2024-07-23 12:45 | XMS_ITS | Encounter Summary ---
Author Organization [employer] Address [address] [facility] [address] [place] [address] Care Team Providers Care Chief Operator Reformer Name Role Phone sIabel Lewis DO Primary Care Provider Marti Elder PharmD Unavailable [phone] Dimitris Arambula BACKEND JAVA DEVELOPER Unavailable Unavailable Reason for Visit * Reason Comments Transition Of Care (Tcm) HDF- unschedule d LVM Encounter Details Date Type Department Care Team (Late st Contact Info) Description 07/09/2024 Patient Outreach [facility] [address] [place], [place] [phone] Isabel Lewis DO [address] [place], [place] [phone] Transition Of Care (Tcm) (HDF- unscheduled LVM ) Social History Tobacco Use Types Packs/Day Years [...] as of this encounter Miscellaneous Notes * Significant Event - Kellederek Suarez - 07/09/2024 4:15 PM EST 07/09/24 1610 Hospital Discharges and Admission for [facility] Type of Visit Hospital Admission Date of Admission/Visit 07/07/24 Date of Discharge 07/09/24 Facility [facility] Diagnosis Hypokalemia , Diabetes , Chest pressure Disposition Discharged Home Follow-Up Actions Follow-Up Needed Provider appointment Follow-Up Outcome Left Voicemail Initial Contact Date 07/09/24 CASEY Velásquez placed outbound call to patient for HDF outreach. CC placing call to offer patient with an HDF appointment with provider. No answer at this time. Patient's name and were not confirmed. CC left detailed message educating patient on importance of following up with provider followingan inpatient admission. Provided contact information requesting a call back in order to schedule the HDF appointment. Patient educated via voicemail on extended clinic hours on Mondays and Wednesdays, and Walk-In Urgent Care Located in [facility]. Patient provided with after-hours line for [facility], , which offer night time triage service and option to transfer to operational risk analyst provider if needed. CC will request Discharge summaries to scan into chart. CC will place additional outreach call within 2-5 business days. documented in this encounter Plan of Treatment Upcoming Encounters Date Type Department Care Team (Late st Contact Info) Description 08/04/2024 9:15 AM EST Office Visit [facility] [address] [place] [address] [phone] Sheila Gonzales MD [address] [place] [address] [phone] 08/05/2024 10:30 AM EST Medication Management [facility] [address] [place] [address] [phone] Marti Elder PharmD [address] [place] [address] [phone] documented as of this encounter Goals Goal [...] documented as of this encounter Care Teams Chief Operator Reformer Relationship Specialty Start Date End Date Isabel Lewis DO [address] [place] [address] [phone] PCP - General Family Medicine 06/03/18 Marti Elder PharmD [address] [place] [phone] Pharmacist Internal Medicine 02/22/23 Dimitris Arambula FNP [address] [place], [place] [address]Olga [place] [address] Nurse Practitioner Family Medicine 04/24/23 documented as of this encounter
--- OUTSIDE RECORDS SUMMARY | 2024-07-23 12:45 | XMS_ITS | Data Portability ---
Author Organization [facility] Address [address] [place] [address] Care Team Providers Care Student Success Counselor Name Role Phone [facility] Referring Provider HIM CCA OTHER [facility] OTHER [phone] Assessment Encounter Date Assessment Date Assessment LastModified by Organization Details LastModified Time 04/03/2023 04/03/2023 I provided real -time medical direction via phone for this encounter, and was available for additional phone based assistance as needed. I have reviewed and agree with the Assessment and Plan as documented by the Ui Ux Developer. Patient given the opportunity to ask questions via dip tube assembler machine Advised if develops CP/severe SOB/turning blue/uncontrolle d n/v/d or black/bloody emesis or stool/ AMS/ syncope/ hi fever unresponsive to APAP to call 911- verbalized understanding of instructions [email or web address] Not available 04/03/2023 14:29:20 10/02/2023 10/02/2023 I provided real -time medical direction via phone for this encounter and was available for additional phone-based assistance as needed. I have reviewed and agree with the Assessment and Plan as documented by the Ui Ux Developer. Patient given the opportunity to ask questions. [...] numbness. This service was then called. Per rn critical care on the scene, no focal deficits with VSS and BG of 220. FAST exam is negative per rn critical care and patient does have sensation of the [...] Modified Time Details Appointments None recorded. Lab rapid SARS CoV 2 Ag, QL IA, respiratory specimen 2022 023 [email or web address] 0 [facility], [address] [place] [address], [address], 14:32:45 BMP, serum or plasma 2022 023 [email or web address] 0 [facility], [address] [place] [address], [address], 14:32:40 urinalysis, dipstick 2022 023 [email or web address] 0 [facility], [address] [place] [address], [address], 14:32:43 BMP, serum or plasma 2022 023 [email or web address] [facility], [address] [place] [address], [address], 17:24:50 glucose, fingerstick , blood 2022 023 MARTHA [facility], [address] [place], [address], 08:32:02 Referral None recorded. Procedures None recorded. Surgeries None recorded. Imaging None recorded. Medication Orders potassium chloride 20 mEq oral packet 2022 023 [email or web address] 0 Not available 14:32:40 potassium chloride ER 20 mEq tablet,exte nded release 2022 023 [facility], [address], [place], [place], [phone], 14:30:28 lactated Ringers intravenous solution 2022 023 [email or web address] Not available 16:56:52 potassium chloride ER 20 mEq tablet,exte nded release 2022 023 [email or web address] Not available 17:26:55 Patient TargetsNo targets recorded. Patient InstructionsNo instructions recorded. Reason for Referral None Reported. Results Created Date Observation Date Name Description Value Unit Range Abnormal Flag Note LastModifiedBy Organization Detail LastModifiedTime 04/01/2004/01/2023 BMP, serum or plasm a BUN 10 Not Available [facility] - [facility] [address], [address], 04/01/2023 16:52:56 04/01/2004/01/2023 BMP, serum or plasm a Ca 1.06 Not Available [facility] [address], [address], 04/01/2023 16:52:56 04/01/2004/01/2023 BMP, serum or plasm a CI- 89 Not Available [facility] [address], [address], 04/01/2023 16:52:56 04/01/2004/01/2023 BMP, serum or plasm a CRE 0.8 Not Available [facility] [address], [address], 04/01/2023 16:52:56 04/01/2004/01/2023 BMP, serum or plasm a GLU 700 Not Available [facility] [address], [address], 04/01/2023 16:52:56 04/01/20 23 04/01/2023 BMP, serum or plasm a K+ 3.4 Not Available [facility] [address], [address], 04/01/2023 16:52:56 04/01/20 23 04/01/2023 BMP, serum or plasm a Na+ 128 Not Available [facility] [address], [address], 04/01/2023 16:52:56 04/01/20 23 04/01/2023 BMP, serum or plasm a tCO2 23 Not Available [facility] [address], [address], 04/01/2023 16:52:56 04/03/20 23 04/03/2023 BMP, serum or plasm a BUN 4 Not Available [facility] [address], [address], 04/03/2023 14:21:27 04/03/20 23 04/03/2023 BMP, serum or plasm a Ca Ionize d calciu m 1.2 Not Available [facility] - [facility] [address], [address], 04/03/2023 14:21:27 04/03/20 23 04/03/2023 BMP, serum or plasm a CI- 100 Not Available [facility] - [facility] [address], [address], 04/03/2023 14:21:27 04/03/20 23 04/03/2023 BMP, serum or plasm a CRE 0.8 Not Available [facility] [address], [address], 04/03/2023 14:21:27 04/03/20 23 04/03/2023 BMP, serum or plasm a GLU 259 Not Available [facility] [address], [address], 04/03/2023 14:21:27 04/03/20 23 04/03/2023 BMP, serum or plasm a K+ 3.2 Not Available [facility] [address] [place] [address], [address], 04/03/2023 14:21:27 04/03/20 23 04/03/2023 BMP, serum or plasm a Na+ 137 Not Available [facility] [address], [address], 04/03/2023 14:21:27 04/03/20 23 04/03/2023 BMP, serum or plasm a tCO2 24 Not Available [facility] [address], [address], 04/03/2023 14:21:27 04/03/20 23 04/03/2023 urina lysis , dipst ick Leukocytes neg Not Available [facility] [address] [place] [address], [address], 04/03/2023 14:21:32 04/03/20 23 04/03/2023 urina lysis , dipst ick Nitrite negati ve Not Available [facility] - [facility] [address], [address], 04/03/2023 14:21:32 04/03/20 23 04/03/2023 urina lysis , dipst ick Urobilinogen neg Not Available [facility] [address] [place] [address], [address], 04/03/2023 14:21:32 04/03/20 23 04/03/2023 urina lysis , dipst ick Protein neg Not Available [facility] - [facility] [address], [address], 04/03/2023 14:21:32 04/03/20 23 04/03/2023 urina lysis , dipst ick pH 6 Not Available [facility] - [facility] [address], [address], 04/03/2023 14:21:32 11/01/04/03/2023 urina lysis , dipst ick Blood neg Not Available [facility] [address] [place] [address], [address], 04/03/2023 14:21:32 04/03/20 23 04/03/2023 urina lysis , dipst ick Specific [place] 1.005 Not Available [facility] [address] [place] [address], [address], 04/03/2023 14:21:32 04/03/20 23 04/03/2023 urina lysis , dipst ick Ketone neg Not Available [facility] - [facility] [address], [address], 04/03/2023 14:21:32 04/03/20 23 04/03/2023 urina lysis , dipst ick Bilirubin neg Not Available [facility] - [facility] [address] [place] [address], [address], 04/03/2023 14:21:32 04/03/20 23 04/03/2023 urina lysis , dipst ick Glucose neg Not Available [facility] - [facility] [address], [address], 04/03/2023 14:21:32 04/03/20 23 04/03/2023 urina lysis , dipst ick Appearance clear they were both Not Available [facility] [address] [place] [address], [address], 04/03/2023 14:21:32 04/03/20 23 04/03/2023 urina lysis , dipst ick Color yellow Not Available [facility] [address] [place] [address], [address], 04/03/2023 14:21:32 04/03/20 23 04/03/2023 rapid SARS CoV 2 Ag, QL IA, respi rator y speci men rapid SARS CoV 2 Ag, QL IA, respiratory specimen positi ve Not Available [facility] [address] [place] [address], [address], 04/03/2023 14:19:58 Result Notes None recorded. Medical Equipment None Reported. Allergies Allergen ID Allergen Name Allergen Category Reaction Reaction Severity Criticality Documentation Date Start Date Code Code System Note Provider Name and Address Organization Details Recorded Time 3695 aspirin medicatio n Not available Not available Not available 04/03/2023 1191 RxNorm Not Available [facility] - production 4 03:57:53 3696 Product containin g penicilli n (product) medicatio n Not available Not available Not available 04/03/2023 17085 8001 SNOMED Not Available [facility] - production 4 03:57:53 3697 Topamax medicatio n Not available Not available Not available 04/03/2023 15459 3 RxNorm Esther Weston MD [address] [place] [address],[address], [place], [address], [facility] 3 14:18:48 3698 Imitrex medicatio n Not available Not available Not available 04/03/2023 02108 3 RxNorm Esther Weston MD [address] [place] [address],[address], [place], [address], W[place]i 3 14:18:55 Medications Name Sig Start Date [...] Available UltiCare Pen Needle 32 gauge x 5/32 USE DIRECTED ONCE DAILY WITH lantus active [...] Available No t Available FreeStyle Jt 2 [place] USE DIRECTED EVERY 8 HOURS active Not [...] [degF] 136 mm[Hg] 78 mm[Hg] Not Available [facility] - production 3 16:51:43 Date Recorded Body temperature Oxygen saturation Oxygen saturation in Arterial blood by Pulse oximetry Body weight Respiratory rate Body height Heart rate Systolic blood pressure Diastolic blood pressure Provider Name and Address Organization Details Last Updated DateTime 3 98.1 [degF] 96 % 96 % 60802.4 g 18 /min 152.4 cm 88 /min 114 mm[Hg] 82 mm[Hg] Not Available [facility] 3 13:28:41 Date Recorded Oxygen saturation Oxygen saturation in Arterial blood by Pulse oximetry Body temperature Respiratory rate Heart rate Systolic blood pressure Diastolic blood pressure Provider Name and Address Organization Details Last Updated DateTime 3 95 % 95 % 100.5 [degF] 16 /min 93 /min 128 mm[Hg] 76 mm[Hg] Not Available [facility] [place] 3 13:52:12 Date Recorded Body height Body mass index (BMI) Body weight Provider Name and Address Organization Details Last Updated DateTime 04/03/2023 152.4 cm 39.1 kg/m2 34450.47 g Esther Weston MD [address] [place] [address],[address], [place], [address] - [facility] 04/03/2023 14:35:10 Date Recorded Oxygen saturation Oxygen saturation in Arterial blood by Pulse oximetry Body temperature Respiratory rate Heart rate Systolic blood pressure Diastolic blood pressure Provider Name and Address Organization Details Last Updated DateTime 4 97 % 97 % 98.5 [degF] 16 /min 86 /min 132 mm[Hg] 84 mm[Hg] Not Available [employer] 4 14:22:20 Social History None recorded. Functional Status None recorded. Mental Status None recorded. Family History Nothing Reported. Medical History No medical history recorded. Gynecological HistoryNo gynecological history recorded. Obstetrics History GPAL:G 0 P 0 0 0 0 Past Encounters Encounter ID Performer Location Encounter Start Date Encounter Closed Date Diagnosis/Indication Diagnosis SNOMED-CT Code Diagnosis ICD10 Code Diagnosis Note [id number] RADHA SHIELDS MD [facility] [address] [place] [phone] 04/01/2023 16:51:41 04/02/2023 14:54:05 Hyperglycemia 29954026 R73.9 Evaluation in the field was performed by my rn critical care colleague, as noted above, I provided real-time [...] in the EDPt agrees to go to [facility] ED for further management of her [...] 1 L LR ) to prevent HHS [id number] Tamie Bridges MD Main - [address] [phone] 04/02/2023 13:28:36 04/02/2023 15:00:10 Hyperglycemia 09382981 R73.9 53 year old female being evaluated for hyperglyce seferino. [facility] d ER visit for glucose [...] assessment and plan as documented by the rn critical care. I provided real-time medical direction for this encounter and was immediatel y available to provide additional phone-base d assistance as needed. [id number] Esther Weston MD [facility] [address] [place] [phone] 04/03/2023 13:52:09 04/03/2023 22:25:35 Hypokalemia 09177842 E87.6 BS 259 she says is her baseline midday-eder pennington is feeling better-the hypokalemi a is normal as the blood sugar decreases- we will place her on supplement ation for the next 5 days (verified her pharmacy is [facility])-anatoliy adams is not spilling glucose or ketones-ad vised to continue her usual medication / f/u wit pcp COVID-19 527673162 U07.1 Advised to continue to rest/ stay [...] take tylenol 4 xper day as needed [id number] Oneida Casper MD [facility] [address] [place] [phone] 10/02/2023 14:22:17 10/03/2023 11:26:47 Headache 22853997 R51.9 Health Concerns Section Related Observation LastModified by Organization Detai ls LastModified Time None Recorded Concern Status LastModified by Organization Details LastModified Time None Recorded Advance Directives Directive None Recorded Payers Encounter Date Sequence Insurance Name Policy Number Policy Chin Covered Member ID Chin Member ID Guarantor Name 04/01/2023 1 [facility] - DOS ON OR AFTER 2022 - DUAL ELIGIBLE - SENIOR LIVING OPTIONS AND ONE CARE (MEDICARE REPLACEMENT/ADV ANTAGE - HMO) Ramona Suarez [id number] Ramona Suarez 04/02/2023 1 [facility] - DOS ON OR AFTER 2022 - DUAL ELIGIBLE - SENIOR LIVING OPTIONS AND ONE CARE (MEDICARE REPLACEMENT/ADV ANTAGE - HMO) Ramona Suarez [id number] Ramona Suarez 04/03/2023 1 [facility] - DOS ON OR AFTER 2022 - DUAL ELIGIBLE - SENIOR LIVING OPTIONS AND ONE CARE (MEDICARE REPLACEMENT/ADV ANTAGE - HMO) Ramona Suarez [id number] Ramona Suarez 10/02/2023 1 [facility] - DOS ON OR AFTER 2022 - DUAL ELIGIBLE - SENIOR LIVING OPTIONS AND ONE CARE (MEDICARE REPLACEMENT/ADV ANTAGE - HMO) Ramona Suarez [id number] Ramona Suarez Notes Date Note Type Note [...] ................... ................... ................... ................... ................... ................... ........ Ui Ux Developer Note From Davidson Baptiste: Dispatched for the female green party experiencing flu-like symptoms, Covid-19 positive as of 03/24/23. Encountered patient supine and conscious in bed with family present, family presents a positive Covid-19 at-home test which reads positive; family expresses the test was performed just prior to [facility] contact. During exam, patient disclosed that she is an insulin dependent diabetic and has not taken her insulin since receiving the first positive test result back on 03/24/23. Patient presents personal glucometer device that reads 'Hi'. [facility] consulted for treatment plan. Skin warm, dry and of appropriate color for ethnicity. Head and neck free of trauma and edema. PERRL. -JVD. Breath sounds present, clear and equal bilaterally. Abdomen soft, non-tender and non-distended. Extremities free of trauma and edema. 4 lead EKG exhibits a sinus rhythm with no present ectopy. 20G IV established in left forearm; BGL Hi. Per [facility] I-stat performed and exhibited a glucose of over 700 mg/DL and a K+ of 3.4. [facility] ordered for patient to self administered 20units of her Tresiba sq. 1L lactated ringers administered via bolus. 40 mEq PO K+ administered. Patient to be transported to [facility] ED for further work-up. [facility] 401 provided transport, this telegraphic typewriter repairer accompanied patient to [facility]. Patient monitored for change in status while en route to [facility], with none noted; remained alert and oriented throughout contact. ................... ................... ................... ................... ................... ................... ................... ........ Disposition: Fulfilled RADHA SHIELDS MD [address] [facility],[address], [place], [address], [facility] 04/01/2023 19:20:47 04/02/2023 text/html HPI: Hx: Migraines. Patient today with continued elevated BG 450 via Fingerstick. Seen in [facility] ED last night declined admission. Restarted Tresiba [...] ................... ................... ................... ................... ................... ................... ........ Ui Ux Developer Note From Herman Navarro: Upon arrival, pt [...] giving herself 4 neb treatments a day. [facility] contacted and pt was administered 40mg potassium oral and was advised to administer a one time dose of 10 units of her insulin in addition to the insulin she is taking per day. Pt told to contact PCP in the morning. Ui Ux Developer Allergies: Aspirin, Penicillin ................... ................... ................... ................... ................... ................... ................... ........ Disposition: Fulfilled Tamie Bridges MD [address] [facility],[address], [place], [address], [facility] 04/02/2023 14:11:02 04/03/2023 text/html CRC Nursing Assessment: Reason For Request: Follow up visit from 04/02 Chief Complaints: Diabetes Related, Electrolyte Imbalance, Medication Related PMH: COPD/Asthma, Diabetes Allergies: Aspirin, Penicillin Comments: [facility] Remarks 53 year old female with DM2, [...] elevated BG 450 via Fingerstick. 04/01 in [facility] ED last night declined admission. Restarted Tresiba [...] 40 mEq of potassium and sent to [facility]. She reports she was given 10 [...] ................... ................... ................... ................... ................... ................... ........... Ui Ux Developer Note From Davidson Baptiste: Dispatched to the call address for the female with diabetic issue. Pt was seen on Saturday by this rn critical care. Pt was found to be hyperglycemic (>700). Pt was given 1L LR, 40mEq of potassium and sent to the ED. Pt left AMA when advised to be admitted to the hospital. Pt was seen yesterday by a different rn critical care and given more potassium. Pt states today [...] ................... ........ Disposition: Fulfilled Esther Weston MD [address] [place] [address],[address], [place], [address], [facility] 04/03/2023 14:42:14 10/02/2023 text/html HPI: HX: ETOH abuse in remission. NO history of seizure.Patient called to report a seizure as witnessed by her this morning at 730am. No details given. Hung up on Interprter x 3 agreed to home CCA visit.DEclined 911 ED x 3. ................... ................... ................... ................... ................... ................... ................... ........ [facility] Nurse Triage Notes (Rosa Isela Hsieh): Comments: HPI reviewed, patient called w/ Plastic Mixer. Supply Controller verified the member's name//address and phone number. [...] reports this has never happened before. This telegraphic typewriter repairer strongly encouraged member to present to the emergency room for further work up. Patient declined going to the ED or calling 911 multiple times. Pt reported she is holding off on going (to the ED) and if it comes to the point of needing help she will get it. This telegraphic typewriter repairer explained to member that [facility] would not be able to properly work [...] migraines, [facility].Education provided on the response time and the member was advised to monitor reported s/s and seek emergency treatment if needed. Ui Ux Developer POC Test Results from Moshe Grewal Blood Glucose Measurement (1) [11:37] Blood Glucose: 221 mg/dL ................... ................... ................... ................... ................... ................... ................... ........ Ui Ux Developer Note From Moshe Grewal: Dispatched to the [...] after to inform them of the event. [facility] contacted and informed and noted if the pt. did not want to be seen in the ER to just make sure she called if conditions worsened. all times are approx.report completed by henrry grewal. ................... ................... ................... ................... ................... ................... ................... ........ Disposition: Fulfilled Oneida Casper MD [address] [facility],[address], [place], [address], BRYAN DE PAZ 10/02/2023 14:36:43 OBGyn Episode No OBEpisode recorded.
--- OUTSIDE RECORDS SUMMARY | 2024-07-23 12:45 | XMS_ITS | Encounter Summary ---
Author Organization [employer] Address [address] [facility] [address] [place] [address] Care Team Providers Care Fishing Rod Trimmer Name Role Phone Isabel Lewis DO Primary Care Provider [phone] Franki Walton PharmD Unavailable Unavail able Marti Elder PharmD Unavailable [phone] Dimitris Arambula WORKERS' COMPENSATION CLAIMS EXAMINER Unavailable Unavailable Encounter Details Date Type Department Care Team (Late st Contact Info) Description 10/30/2022 [facility] Information Management [address] [place], [place] [phone] Isabel Lewis DO [address] [place], [place] [phone] Social History Tobacco Use Types Packs/Day Years [...] Description 08/04/2024 9:15 AM EST Office Visit [facility] [address] [place] [address] Sheila Gonzales MD [address] [place] [address] 08/05/2024 10:30 AM EST Medication Management [facility] [address] [place] [address] Marti Elder PharmD [address] [place] [address] documented as of this encounter Goals Goal [...] documented as of this encounter Care Teams Fishing Rod Trimmer Relationship Specialty Start Date End Date Isabel Lewis DO [address] [place] [phone] PCP - General Family Medicine 06/03/18 Franki Walton, PharmD [address] [place] [phone] Pharmacist Internal Medicine 09/13/22 02/21/23 Marti Elder, PharmD [address] [place] [phone] Pharmacist Internal Medicine 02/22/23 Dimitris Arambula FNP [address] [place] [address] Nurse Practitioner Family Medicine 04/24/23 documented as of this encounter
--- OUTSIDE RECORDS SUMMARY | 2024-07-23 12:45 | XMS_ITS | Clinical Summary ---
Author Organization [facility] Address [address] [place] [address] Phone Care Team Providers Care Configuration Management Advisor Name Role Phone Claudia Lewisfer Rosa Elena THOMAS Primary Care Provider [phone] Allergies Active Allergy Reactions Criticality Noted Date Comments Penicillins Swelling 06/22/2024 Sumatriptan Unknown 06/22/2024 Topiramate Unknown 06/22/2024 Medications azithromycin (ZITHROMAX) 250 mg tablet Take 2 tablets (500 mg total) by mouth 1 (one) time each day for 1 day, THEN 1 tablet (250 mg total) 1 (one) time each day for 4 days. 6 each 06/22/2024 06/27/19 25 predniSONE (DELTASONE) 10 mg tablet Take 4 tablets (40 mg total) by mouth 1 (one) time each day for 5 days. 20 each 06/22/2024 06/27/19 25 Encounters Date Type Department Care Team Description 06/22/2024 9:25 AM EST - 06/22/2024 12:50 PM EST Emergency [facility] Emergency [address] [place] [address] Alirio Maurice MD Chest pain, unspecified type (Primary Dx); Precordial chest pain; Subcutaneous emphysema resulting from a procedure, sequela Discharge Disposition: Home or Self Care from Last 3 Months Social History Tobacco Use Types Packs/Day Years Used Date Smoking Tobacco: Never Assessed Comments Unknown Sex and Gender Information Value Date Recorded Sex Assigned at Not on file Legal Sex Female 4:33 AM EST Gender Identity Not on file Sexual Orientation Not on file Last Filed Vital Signs [...] Completed 02/28/2024, 10/22/2018, 07/17/2017, Additional history exists Pneumococcal Vaccine: Pediatrics (0 [...] patient's age to complete this topic Meningococcal B Vacine Aged Out No lo nger eligible based on patient's age to complete [...] Signed Date: 06/22/2024 12:13 ET Workstation ID: [id number] Transcribed By: Self Edit Transcribed Date: 06/22/2024 [...] Signed Date: 06/22/2024 12:13 ET Workstation ID: [id number] Transcribed By: Self Edit Transcribed Date: 06/22/2024 12:01 ET Alirio Maurice MD IMG CT PROCEDURES Final R esult * Troponin I high sensitivity (06/22/2024 10:50 AM EST) Only the most recent of2 resultswithin the time period is included. [facility] High Sensitivity Troponin I 14 <=54 ng/L LAB CHEMISTRY METHOD 06/22/2024 11:23 AM EST [facility] Blood Venous blood specimen / Unknown Venipuncture / Unknown 06/22/2024 10:50 AM EST 06/22/2024 10:55 AM EST [facility] - 06/22/2024 11:23 AM EST High levels of biotin in samples may falsely decrease hsTroponin values. ??Use caution when interpreting hsTroponin results in patients taking biotin who exhibit renal impairment (eGFR <60) or in patients taking more than 20 mg/day of biotin. Alirio Maurice MD LAB BLOOD ORDERABLES Shilpi l Result [facility] [address] [place] [address], * (ABNORMAL) D-dimer, quantitative (06/22/2024 10:50 AM EST) [facility] D-Dimer, Quant (D-DU) 741(H) <=230 ng/mL DDU LAB COAGULATION METHOD 06/22/2024 11:06 AM EST [facility] Blood Venous blood specimen / Unknown Venipuncture / Unknown 06/22/2024 10:50 AM EST 06/22/2024 10:56 AM EST [facility] - 06/22/2024 11:06 AM EST D-Dimer <230 ng/mL (D-Dimer units) is the threshold for exclusion of DVT/PE. D-Dimer may be elevated in: Critically ill, severely infected, trauma patients, DIC, acute CVA, acute DC, unstable angina, AF, old age, , and smoking. D-Dimer may be decreased with: Initiation of heparin therapy and oral anticoagulants. Alirio Maurice MD LAB BLOOD ORDERABLES Shilpi ham Result [facility] [address] [place] [address], * XR Chest 2 Views (06/22/2024 10:24 [...] Signed Date: 06/22/2024 10:36 ET Workstation ID: [id number] Transcribed By: Self Edit Transcribed Date: 06/22/2024 [...] Signed Date: 06/22/2024 10:36 ET Workstation ID: [id number] Transcribed By: Self Edit Transcribed Date: 06/22/2024 10:28 ET us Alirio Maurice MD IMG XR PROCEDURES Final R esult * ECG 12 lead (06/22/2024 9:50 AM EST) Ventricular Rate ECG 110 BPM GEMUSE Atrial Rate 110 BPM GEMUSE P-R Interval 130 ms GEMUSE QRS Duration 80 ms GEMUSE Q-T Interval 378 ms GEMUSE QTc 511 ms GEMUSE P Wave [place] 9 degrees GEMUSE R [place] 22 degrees GEMUSE T [place] 54 degrees GEMUSE ECG Interpretation Sinus tachycardia Nonspecific ST abnormality Prolongation of QT interval Abnormal ECG When compared with ECG of 06-OCT-2019 08:37, No significant change was found Confirmed by Lakshmi MCGHEE YUFENG ([id number]) on 06/22/2024 3:58:27 PM GEMUSE 06/22/2024 9:50 AM EST 06/22/2024 3:58 PM EST us Alirio Maurice MD ECG ORDERABLES Final Res ult GEMUSE * Respiratory virus panel molecular study [...] 06/22/2024 11:53 AM [facility] RSV PCR Not Detected Not Detected LAB MICROBIOLOGY METHOD 06/22/2024 11:53 AM [facility] Human Metapneumovirus A and B Not Detected Not Detected LAB MICROBIOLOGY METHOD 06/22/2024 11:53 AM EST [facility] Rhinovirus/Entero virus Not Detected Not Detected LAB MICROBIOLOGY METHOD 06/22/2024 11:53 AM EST [facility] Bordetella pertussis Not Detected Not Detected LAB MICROBIOLOGY METHOD 06/22/2024 11:53 AM EST [facility] Bordetella parapertussis Not Detected Not Detected LAB MICROBIOLOGY METHOD 06/22/2024 11:53 AM EST [facility] Mycoplasma pneumo by PCR Not Detected Not Detected LAB MICROBIOLOGY METHOD 06/22/2024 11:53 AM EST [facility] Chlamydia pneumoniae Not Detected Not Detected LAB MICROBIOLOGY METHOD 06/22/2024 11:53 AM EST [facility] SARS COV-2 Not Detected Not Detected LAB MICROBIOLOGY METHOD 06/22/2024 11:53 AM EST [facility] Swab Both anterior nares / Unknown Non-blood Collection / Unknown 06/22/2024 9:48 AM EST 06/22/2024 10:54 AM EST [facility] - 06/22/2024 11:53 AM EST Testing was performed using the BioOrdoroe Respiratory Pathogen PCR Assay. All results must [...] that are below the limit of detection. us Cassandra Muñiz DO LAB MICROBIOLOGY - GENERA L ORDERABLES Final Result [facility] [address] [place] [address], [place] [phone] * (ABNORMAL) CBC auto differential (06/22/2024 9:48 AM EST) Pathologist [facility] WBC 8.8 4.8 - 10.8 K/mcL LAB HEMETOLOGY METHOD 06/22/2024 11:02 AM [facility] RBC 4.40 3.80 - 4.80 M/[facility] LAB HEMETOLOGY METHOD 06/22/2024 11:02 AM [facility] NRBC Absolute 0.00 <0.10 K/[facility] LAB HEMETOLOGY METHOD 06/22/2024 11:02 AM [facility] [...] 9:48 AM EST 06/22/2024 10:55 AM EST us Alirio Maurice MD LAB BLOOD ORDERABLES Shilpi l Result Performing Organization Address [facility]/ZIP Co de Phone Number [facility] [address] [place] [address], [place] [phone] * (ABNORMAL) Magnesium (06/22/2024 9:48 AM EST) [facility] Magnesium 1.7(L) 1.9 - 2.6 mg/dL LAB CHEMISTRY METHOD 06/22/2024 11:19 AM [facility] Blood Venous blood specimen / Unknown Venipuncture / Unknown 06/22/2024 9:48 AM EST 06/22/2024 10:55 AM EST Alirio Maurice MD LAB BLOOD ORDERABLES Shilpi l Result Performing Organization Address [facility] Co de Phone Number [facility] [address] [place] [address], [place] [phone] * (ABNORMAL) Basic metabolic panel (06/22/2024 9:48 AM EST) [facility] Sodium 135 133 - 145 mmol/L LAB [...] LAB CHEMISTRY METHOD 06/22/2024 11:19 AM EST [facility] BUN 13 5 - 25 mg/dL [...] 06/22/2024 11:19 AM [facility] Blood Venous blood specimen / Unknown Venipuncture / Unknown 06/22/2024 9:48 AM EST 06/22/2024 10:55 AM EST Alirio Maurice MD LAB BLOOD ORDERABLES Shilpi cheek Result [facility] [address] [place] [address], * ECG-Annotated (06/22/2024) us Provider Onbase ECG ORDERABLES Final Result from Last 3 Months Insurance [facility] Member Subscriber Plan / Payer (Ef fective 2024-Present) Name:Ramona Suarez Relation to Subscriber:Self Name:Ramona Suarez Payer ID:[id number] Type:Not on file Address: [address] [address] Care Teams Configuration Management Advisor Relationship Specialty Start Date End Date Isabel Lewis DO [address] [place] [address] PCP - General Family Medicine 06/22/24
--- OUTSIDE RECORDS SUMMARY | 2024-07-23 12:45 | XMS_ITS | Encounter Summary ---
Author Organization [employer] Address [address] [facility] [address] [place] [address] Care Team Providers Care Can Handler Name Role Phone Isabel Lewis DO Primary Care Provider [phone] Franki Walton PharmD Unavailable Unavail able Marti Elder PharmD Unavailable [phone] Dimitris Arambula Unavailable Unavailable Reason for Visit * Reason Comments Med Refill Encounter Details Date Type Department Care Team (Late st Contact Info) Description 09/09/2022 Refill [facility] [address] [place] [address] Dimitris Arambula FNP Mood disorder (CMS/HCC) Social [...] Description 08/04/2024 9:15 AM EST Office Visit [facility] [place] [address] Sheila Gonzales MD [facility] [place] 08/05/2024 10:30 AM EST Medication Management [facility] [place] [address] Marti Elder PharmD [facility] [place] [address] documented as of this encounter Visit Diagnoses Diagnosis Mood disorder (CMS/HCC) Unspecified episodic mood disorder documented in this encounter Additional Health Concerns Assessment Noted Time PHQ-9 Depression Total Score: 7 08/29/19 23 2:26 PM EDT documented as of this encounter Care Teams Can Handler Relationship Specialty Start Date End [place] [address] PCP - General Family Medicine 06/03/18 Franki Walton PharmD [address] [place] [phone] Pharmacist Internal Medicine 09/13/22 02/21/23 Marti Elder, [place] [address] Pharmacist Internal Medicine 02/22/23 Dimitris Arambula FNP [address] [place] [phone] Nurse Practitioner Family Medicine 04/24/23 documented as of this encounter
--- OUTSIDE RECORDS SUMMARY | 2024-07-23 12:45 | XMS_ITS | Encounter Summary ---
Author Organization [employer] Address [address] [facility] [address] [place] [address] Care Team Providers Care Rolling Down Machine Operator Name Role Phone Isabel Lewis DO Primary Care Provider + [phone] Marti Elder PharmD Unavailable [phone] Dimitris Arambula [employer]RE DISPATCHER Unavailable Unavailable Encounter Details Date Type Department Care Team (Late st Contact Info) Description 07/06/2024 Orders Only GENERIC EXTERNAL DATA DEPARTMENT Provider, Generic External Data Social History Tobacco Use Types Packs/Day Years [...] Description 08/04/2024 9:15 AM EST Office Visit [facility] [address] [place] [phone] Sheila Gonzales MD [address] [place] [phone] 08/05/2024 10:30 AM EST Medication Management [facility] [address] [place] [phone] Marti Elder PharmD [address] [place] [phone] Pending Results Name Type Priority Associated Diagnoses Date /Time Beta-Hydroxybutyrate Lab Routine 08/2024 1:41 PM EST Comprehensive Metabolic Panel Lab Routine 07/06/2024 1:41 PM EST Magnesium Lab Routine 07/06/2024 1:4 1 PM EST documented as of this encounter Goals Goal [...] Procedure Name Priority Date/Time Associated Diagnosis Comments GLUCOSE, WHOLE BLOOD Routine 07/06/2024 4:08 PM EST HIGH SENSITIVITY TROPONIN I Routine 07/06/2024 2:51 PM EST APTT Routine 07/06/2024 2:51 PM EST PROTHROMBIN TIME-INR Routine 07/06/2024 2:51 PM EST XR CHEST 1 VIEW Routine 07/06/2024 2:31 PM EST HOLD GREEN GEL Routine 07/06/2024 1:41 PM EST HIGH SENSITIVITY TROPONIN I Routine 07/06/2024 1:41 PM EST URINALYSIS, COMPLETE, WITH REFLEX TO CULTURE Routine 07/06/2024 1:41 PM EST SARS COV2/INFLUENZA A/B AND RSV RNA QL NAAT Routine 07/06/2024 1:41 PM EST BETA-HYDROXYBUTYRATE Routine 07/06/2024 1:41 PM EST CBC WITH AUTO DIFFERENTIAL Routine 07/06/2024 1:41 PM EST MAGNESIUM Routine 07/06/2024 1:41 PM EST COMPREHENSIVE METABOLIC PANEL Routine 07/06/2024 1:41 PM EST documented in this encounter Results * (ABNORMAL) Glucose, Whole Blood (07/06/2024 4:08 PM EST) Glucose, Whole Blood 529(HH) 60 - 115 mg/dL [facility] Comment:METER #: [id number] 07/06/2024 4:08 PM EST 07/06/2024 4:11 PM EST us Generic External Data Provider LAB BLOOD ORDERAB LES Final Result [facility] [address] [place] [address] [phone] * (ABNORMAL) High Sensitivity Troponin I (07/06/2024 2:51 PM EST) [facility] TROPONIN I HIGH SENSITIVITY 58.9(HH) <3.5 - 17.0 ng/L [facility] Comment:Critical value for t est(s):TROP-IHS Results called to mustapha back by:ASHIA Person calling: KUSF Date:[id number]:[id number] Maher high sensitivity Troponin-I results should beused in conjunction with other diagnostic information suchas ECG, clinical observations and information, and patientsymptoms to aid in the diagnosis of NM. 07/06/2024 2:51 PM EST 07/06/2024 2:55 PM EST Narrative [facility] - 07/06/2024 3:24 PM EST Comment DO NOT DRAW RPT UNTIL 1541 us Generic External Data Provider LAB BLOOD ORDERAB LES Final Result Performing Organization Address [facility] Co de Phone Number [facility] [address] [place] [phone] * Partial Thromboplastin Time, Activated (APTT) (07/06/2024 2:51 PM EST) [facility] Partial Thromboplastin Time 26.2 26.0 - 36.8 SEC [facility] Comment:For information rega rding the monitoring of direct thrombininhibitors, please refer to Pharmacy. 07/06/2024 2:51 PM EST 07/06/2024 2:55 PM EST us Generic External Data Provider LAB BLOOD ORDERAB LES Final Result Performing Organization Address [facility] Co de Phone Number [facility] [address] [place] [phone] * Prothrombin Time-INR (07/06/2024 2:51 PM EST) Prothrombin Time 11.6 10.9 - 12.4 SEC [facility] INTERNATIONAL NORM RATIO 1.0 0.9 - 1.1 [facility] Comment:INTERNATIONAL NORMAL IZED RATIO (INR) REFERENCE RANGES Reference RangeFor patients not on anticoagulant therapy: 0.9 - 1.1INR ranges for oral anticoagulanttherapy:For prevention and treatment of venous thrombosis and pulmonary embolism: 2.0 - 3.0For acute myocardial infarction with aspirin therapy: 2.0 - 3.0For acute myocardial infarction without aspirin therapy: 3.0 - 4.0For patients with mechanical prosthetic heart valves: 2.5 - 3.5 07/06/2024 2:51 PM EST 07/06/2024 2:55 PM EST us Generic External Data Provider LAB BLOOD ORDERAB LES Final Result Performing Organization Address City/State/[facility] Co de Phone Number [facility] [address] [place] [phone] * XR Chest 1 View (07/06/2024 2:31 PM EST) Anatomical Region Laterality Modality Chest Radiographic Lisa ging 07/06/2024 2:31 PM EST Narrative 07/06/2024 2:46 PM EST ? [facility] ?[address] ?[place] [address] ?XRay Report ? Signed ? Patient: Suarez,Ramona ?MR#: [id number] ? : 1970 ?Acct:[id number] ? Age/Sex: 54 / F ?ADM Date: 07/06/ ? Loc: HO.ED ? Attending Dr: ? Ordering Physician: Siobhan Stuart ?? Date of Service: 07/06/24 ?? Procedure(s): XR chest 1V ?? Accession Number(s): [id number] ? cc: Siobhan Stuart; Isabel Lewis DO ? EXAMINATION: ?? XR CHEST ? CLINICAL INFORMATION: ?? chest pain ? COMPARISON: ?? June 18, 2024 ? TECHNIQUE: ?? Frontal view of the chest was obtained. ? FINDINGS: ?? Indistinct margins in the pulmonary hilum and prominence of the ?? interstitial markings. ?? No pleural effusion. No pneumothorax. Osseous structures are intact. ? XR/XR chest 1V ?? IMPRESSION: ?? Pulmonary edema in the correct clinical settings. ? Electronically signed by: ??Joey Camarillo MD ??07/06/2024 02:42 PM ?? EST RP ? Dictated By: ?Joey Robles MD ? Signed By: ?<Electronically signed by Joey Andrade MD in OV> ? 07/06/241441 ? DD/ 1431 ? TD/TT: 07/06/24 1441 ? In Flight Refueling Craftsman: ? Procedure Note Donmatthew, Mario - 07/06/2024 [place] [address] XRay Report Signed Patient: Ramona SuarezMR#: [id number] : 1970Acct:[id number] Age/Sex: 54 / FADM Date: 07/06/24 Loc: .ED Attending Dr: Ordering Physician: Siobhan Stuart Date of Service: 07/06/24 Procedure(s): XR chest 1V Accession Number(s): [id number] cc: Siobhan Stuart; Isabel Lewis DO EXAMINATION: XR CHEST CLINICAL INFORMATION: chest pain COMPARISON: June 18, 2024 TECHNIQUE: Frontal view of the chest was obtained. FINDINGS: Indistinct margins in the pulmonary hilum and prominence of the interstitial markings. No pleural effusion. No pneumothorax. Osseous structures are intact. XR/XR chest 1V IMPRESSION: Pulmonary edema in the correct clinical settings. Electronically signed by: Joey Camarillo MD 07/06/2024 02:42 PM EST Dictated By: Joey Robles MD Signed By: <Electronically signed by Joey Andrade MDin OV> 07/06/24 1442 DD/ 1431 TD/TT: 07/06/24 1441 In [employer]uel[employer] Craftsman: us [facility] External Provider IMG XR PROCEDURES Final Result * SARS-CoV-2 RNA, Influenza A/B, and RSV RNA, Ql NAAT (07/06/2024 1:41 PM EST) Pathologist [facility] Influenza A PCR NEGATIVE Negative [facility] Influenza B PCR NEGATIVE Negative [facility] Resp Syncy Virus RNA Qual PCR NEGATIVE Negative [facility] SARS COV2 PCR NEGATIVE Negative [facility] Comment:All test results mus t [...] use by authorized laboratories.Testing performed on the [employer] GeneXpert utilizingreal-time RT-PCR.All SARS CoV2 and positive influenza A/B results arereported to [facility]. 07/06/2024 1:41 PM EST 07/06/2024 1:47 PM EST Generic External Data Provider LAB MICROBIOLOGY - GENERAL ORDERABLES Final Result [facility] [address] [place] [phone] * (ABNORMAL) High Sensitivity Troponin I (07/06/2024 1:41 PM EST) Pathologist [facility] TROPONIN I HIGH SENSITIVITY 57.1(HH) <3.5 - 17.0 ng/L [facility] Comment:Critical value for t est(s): hs-tni Results called to mustapha back by:sue Person calling:pratik Date:07/06/24Time:1423The Maher high sensitivity Troponin- I results should beused in conjunction with other diagnostic information suchas ECG, clinical observations and information, and patientsymptoms to aid in the diagnosis of NM. 07/06/2024 1:41 PM EST 07/06/2024 1:47 PM EST us Generic External Data Provider LAB BLOOD ORDERAB LES Final Result [facility] [address] [place] [address] [phone] * (ABNORMAL) CBC auto differential (07/06/2024 1:41 PM EST) White Blood Count 15.0(H) 4.8 - 10.8 X10*3/uL [facility] Red Blood Count 4.80 4.20 - 5.50 X10*6/uL [facility] Hemoglobin 13.0 12.0 - 16.0 g/dl [facility] Hematocrit 37.2 37.0 - 47.0 % [facility] Mean Corpuscular Volume 77.5(L) 80.0 - 98.0 fL [facility] Mean Corpuscular Hemoglobin 27.1 27.0 - 33.0 pg [facility] Mean Corpuscular HGB Conc 34.9 31.0 - 35.0 g/dl [facility] Red Cell Distribution Width 14.6 11.0 - 16.0 % [facility] Platelet Count 326 160 - 400 X10*3/uL [facility] Mean Platelet Volume 11.7 9.4 - 12.3 fL [facility] Neutrophils Percent Auto 70.7 45 - 73 % [facility] Imm Gran Pct Auto 0.4 0.0 - 0.4 % [facility] Lymphocytes Percent Auto 22.5 20 - 40 % [facility] Monocytes Percent Auto 5.3 2 - 11 % [facility] Eosinophils Percent Auto 0.5 0 - 4 % [facility] Basophils Percent Auto 0.6 0 - 2 % [facility] NRBC Pct Auto 0.0 0.0 - 0.2 /100WBC [facility] Neutrophils Absolute Auto 10.6(H) 2.0 - 8.3 x10*3/uL [facility] Imm Gran Abs Auto 0.06(H) 0.00 - 0.03 X10*3/uL [facility] Lymphocytes Absolute Auto 3.4 1.2 - 4.9 X10*3/uL [facility] Monocytes Absolute Auto 0.8 0.1 - 1.2 X10*3/uL [facility] Eosinophils Absolute Auto 0.1 0.0 - 0.4 X10*3/uL [facility] Basophils Absolute Auto 0.1 0.0 - 0.2 X10*3/uL [facility] NRBC Abs Auto 0.000 0.0 - 0.012 X10*3/uL [facility] 07/06/2024 1:41 PM EST 07/06/2024 1:47 PM EST us Generic External Data Provider LAB BLOOD ORDERAB LES Final Result Performing Organization Address City/State/[facility] Co de Phone Number [facility] [address] [place] [phone] * (ABNORMAL) Urinalysis, Complete, with Reflex to Culture (07/06/2024 1:41 PM EST) Color Urine Yellow [facility] Appearance Urine Clear [facility] PH 6.5 5.0 - 9.0 [facility] Glucose Urine UA >=1000(A) Negative mg/dL [facility] Urine Blood Negative Negative [facility] Specific [place] - Urine 1.020 1.005 - 1.025 [facility] Urine Protein Negative Neg-Trace mg/dL [facility] Urine Ketones Negative Negative mg/dL [facility] Nitrite Urine Negative Negative [facility] Leukocyte Esterase Urine Negative Negative [facility] RBC Urine 0-2 0 - 2 /HPF [facility] Urine WBC 0-5 0 - 5 /HPF [facility] Urine Squamous Epithelial Cell 0-2 0 - 2 /HPF [facility] Urine Bacteria None Seen None Seen [facility] Hyaline Casts, Urine 0-2 0 - 2 /LPF [facility] 07/06/2024 1:41 PM EST 07/06/2024 1:47 PM EST Narrative [facility] - 07/06/2024 2:05 PM EST [id number], Clean Catch us Generic External Data Provider LAB URINE ORDERAB LES Final Result Performing Organization Address City/[facility]/ZIP Co de Phone Number [facility] [address] [place] [address] [phone] * Hold Green Gel (07/06/2024 1:41 PM EST) Hold Green Gel See Note [facility] Comment:Specimen held untest ed for 24 hours; Call to requestChemistry testing. 07/06/2024 1:41 PM EST 07/06/2024 1:48 PM EST us Generic External Data Provider HISTORICAL/NON OR DERABLE LABS Final Result Performing Organization Address [facility] Co de Phone Number [facility] [address] [place] [phone] documented in this encounter Visit Diagnoses Not on filedocumented in this encounter Additional Health Concerns Assessment Noted Time PHQ-9 Depression Total Score: 9 07/02/19 24 9:27 AM EST documented as of this encounter Care Teams Rolling Down Machine Operator Relationship Specialty Start Date End Date Isabel Lewis DO [address] [place] [address] PCP - General Family Medicine 06/03/18 Marti Elder PharmD [address] [place] [address] Pharmacist Internal Medicine 02/22/23 Dimitris Arambula FNP [address] [place] [address] Nurse Practitioner Family Medicine 04/24/23 documented as of this encounter
--- OUTSIDE RECORDS SUMMARY | 2024-07-23 12:45 | XMS_ITS ---
Author Organization [facility] Address [address] [place] [address] Care Team Providers Care Rural Service Engineer Name Role Phone Isabel Lewis Primary Care [...] Problem Fatty liver (K76.0) Active confirmed 19 3703906 Problem Urinary incontinence, unspecified type (R32) Active confirmed 562263013 Problem COVID-19 (U07.1) Active confirmed 42272 9006 Problem Other chronic pain (G89.29) Active confirmed 78921400 Problem Age-related nuclear cataract, bilateral (H25.13) Active confirmed [id number] Problem Gastroesophageal reflux disease without esophagitis (K21.9) Active confirmed 138190455 Problem Bipolar affective disorder, remission status unspecified (F31.9) Active confirmed 77039055 Encounters Encounter Location Date Provider Diagnosis [address] [phone] 09/12/2023 Operations Clinical COPD (chronic obstructive pulmonary [...]
--- OUTSIDE RECORDS SUMMARY | 2024-07-23 12:45 | XMS_ITS | Encounter Summary ---
Author Organization [employer] Address 75 [facility] 7t [place] [address] Care Team Providers Care Cash Control Specialist Name Role Phone Isabel Lewis DO Primary Care Provider [phone] Franki Walton PharmD Unavailable Unavail able Marti Elder PharmD Unavailable [phone] Dimitris Arambula INSTRUMENTATION FITTER Unavailable Unavailable Reason for Visit * Reason Comments Med Refill Encounter Details Date Type Department Care Team (Late st Contact Info) Description 09/13/2022 Refill [facility] MED[facility]INE [address] [place], [place] [phone] Isabel Lewis DO [address] [place], [place] [phone] Insomnia, unspecified type Social History Tobacco Use [...] Description 08/04/2024 9:15 AM EST Office Visit [address] [address] Sheila Gonzales MD [address] [place], [place] 08/05/2024 10:30 AM EST Medication Management [facility] [address] [place], [place] [phone] Marti Elder PharmD [address] [place], [place] documented as of this encounter Goals Goal [...] documented as of this encounter Care Teams Cash Control Specialist Relationship Specialty Start Date End Date Isabel Lewis DO [address] [place] [address] PCP - General Family Medicine 06/03/18 Franki Walton, PharmD [address] [place] [address] Pharmacist Internal Medicine 09/13/22 02/21/23 Marti Elder, PharmD [address] [place] [address] Pharmacist Internal Medicine 02/22/23 Dimitris Arambula FNP [address] [place] [address] Nurse Practitioner Family Medicine 04/24/23 documented as of this encounter
--- OUTSIDE RECORDS SUMMARY | 2024-07-23 12:45 | XMS_ITS | Encounter Summary ---
Author Organization [employer] Address 75 [facility] 7t [place] [address] Care Team Providers Care Quality Assurance Monitor Final Name Role Phone Isabel Lewis DO Primary Care Provider [phone] Marti Elder PharmD Unavailable [phone] Dimitris Arambula RETAIL SALES ADVISOR Unavailable Unavailable Reason for Visit * Reason Onset Date Comments HDF R/S 07/23/2024 Encounter Details Date Type Department Care Team (Late st Contact Info) Description 07/23/2024 Telephone [facility] MEDICINE [address] [place], [place] [phone] Marcia Ham, MARY [address] [place] [address] HDF R/S Social History Tobacco Use Types Packs/Day Years [...] encounter Miscellaneous Notes * Telephone Encounter - Marcia Ham RN - 07/23/2024 11:56 AM EST ----- Message from Linsey Patterson sent at 07/23/2024 9:33 AM EST ----- Patient was called per Marti Ames to scheduled patient for an HDF patient was offered several dates and declined due to schedule conflicts . Patient was informed by film writer message will be sent to team nurses for assistance. Further information are in encounters. (patient is honduran speaking only) documented in this encounter Plan of Treatment Upcoming Encounters Date Type Department Care Team (Late st Contact Info) Description 08/04/2024 9:15 AM EST Office Visit [facility]INE [address] [place] [address] Sheila Gonzales MD [address] [place] [address] 08/05/2024 10:30 AM EST Medication Management [facility] [address] [place] [address] Marti Elder PharmD [address] [place] [address] documented as of this encounter Goals Goal [...] documented as of this encounter Care Teams Quality Assurance Monitor Final Relationship Specialty Start Date End Date Isabel Lewis DO [address] [place] [address] PCP - General Family Medicine 06/03/18 Marti Elder PharmD [address] [place] [address] Pharmacist Internal Medicine 02/22/23 Dimitris Arambula FNP [address] [place] [address] Nurse Practitioner Family Medicine 04/24/23 documented as of this encounter
--- OUTSIDE RECORDS SUMMARY | 2024-07-23 12:45 | XMS_ITS | Encounter Summary ---
Author Organization [employer] Address 75 [facility] 7t [place] [address] Care Team Providers Care Production Shift Supervisor Name Role Phone Isabel Lewis DO Primary Care Provider [phone] Franki Walton PharmD Unavailable Unavail able Marti Elder PharmD Unavailable [phone] Dimitris Arambula ROLLING UP MACHINE OPERATOR Unavailable Unavailable Encounter Details Date Type Department Care Team (Late Contact Info) Description 10/09/2022 Orders Only [facility] MED & PEDS [address] [place] [address] Franki Walton, PharmD Social History Tobacco Use [...] Department Care Team (Late Contact Info) Description 08/04/2024 9:15 AM EST Office Visit [facility] MEDICINE [address] [place] [address] Sheila Gonzales MD [facility] [place] [place] 08/05/2024 10:30 AM EST Medication Management [facility] MEDICINE [address] [place], [place] [phone] Marti Elder PharmD [place], [place] documented as of this encounter Goals Goal Patient Goal Type Associated Problems Recent Progress Patient-Stated? Author Hemoglobin A1c < 7 Result Component 9.9(06/05/2024 11:40 AM EST) No Franki Walton, PharmRomario documented as of this encounter Visit Diagnoses Not on filedocumented in this encounter Additional Health Concerns Assessment Noted Time PHQ-9 Depression Total Score: 7 08/29/19 23 2:26 PM EDT documented as of this encounter Care Teams Production Shift Supervisor Relationship Specialty Start Date End Date Isabel Lewis DO [address] [place] [address] PCP - General Family Medicine 06/03/18 Franki Walton, PharmD [address] [place] [address] Pharmacist Internal Medicine 09/13/22 02/21/23 Marti Elder, MisbahD [address] [place] [address] Pharmacist Internal Medicine 02/22/23 Dimitris Arambula FNP [address] [place] [address] Nurse Practitioner Family Medicine 04/24/23 documented as of this encounter
--- OUTSIDE RECORDS SUMMARY | 2024-07-23 12:45 | XMS_ITS | Encounter Summary ---
Author Organization [employer] Address 75 [facility] 7t [place] [address] Care Team Providers Care Jewelry Drill Operator Name Role Phone Isabel Lewis DO Primary Care Provider [phone] Marti Elder PharmD Unavailable [phone] Dimitris Arambula EVENT MARKETING COORDINATOR Unavailable Unavailable Reason for Visit * Reason Comments Med Refill Encounter Details Date Type Department Care Team (Late st Contact Info) Description 04/06/2023 Refill [facility] MEDICINE [address] [place], [place] [phone] Leyda Chávez, ANP [address] [place], [place] [phone] Insomnia, unspecified type Social History Tobacco Use [...] Description 08/04/2024 9:15 AM EST Office Visit [facility] MEDICINE [address] [place] [address] Sheila Gonzales MD [address] [place] [address] 08/05/2024 10:30 AM EST Medication Management [facility] MED[facility]INE [address] [place] [address] Marti Elder PharmD [address] [place] [address] documented as of this encounter Goals Goal Patient Goal Type Associated Problems Recent Progress Patient-Stated? Author Hemoglobin A1c < 7 Result Component 9.9( 11:40 AM EST) No Franki aWlton PharmD Record your blood sugar as directed [...] documented as of this encounter Care Teams Jewelry Drill Operator Relationship Specialty Start Date End Date Isabel Lewis DO [address] [place] [address] PCP - General Family Medicine 06/03/18 Marti Elder PharmD [address] [place] [address] Pharmacist Internal Medicine 02/22/23 Dimitris Arambula FNP [address] [place] [address] Nurse Practitioner Family Medicine 04/24/23 documented as of this encounter
--- OUTSIDE RECORDS SUMMARY | 2024-07-23 12:45 | XMS_ITS | Continuity of Care Document ---
Author Organization [facility] Address [address] [place] [address]- Care Team Providers Care Industrial Analyst Name Role Phone Isabel Lewis DO Primary Care Physician Encounter [facility] Date(s): 06/17/24 - 07/17/24 [facility] [address] [place] [id number] Attending Physician: Cristhian Villegas Admitting Physician: Cristhian Villegas Referring Physician: Admtr [id number] Encounter Type: Triage Allergies, Adverse Reactions, Alerts Substance Criticality Severity [...] 11:08:44 AM EDT, Route to Pharmacy Electronically, [facility] Start Date: 01/13/19 Stop Date: 07/12/19 Status: [...] AM EDT, 06/17/24 10:49:00 AM EST, Tablet, [facility], Please fill after patient has [...] Refills, Maintenance, 06/17/24 10:49:00 AM EST, Tablet, [facility], Partial fill upon patient request [...] 3 Refills, Maintenance, 11/19/23 4:27:00 PM EDT, [facility], 11, USE 2 SPRAYS IN [...] Refills, Maintenance, 09/14/21 12:26:00 PM EDT, Powder, [facility], Partial fill upon patient request if the prescription is for a schedule II opioid drug., 160, cm, 05/24/21 14:56:00 EST, Height Start Date: 09/14/21 Status: Ordered Quantity: 30.0 Unit: each Repeat number: 4 ipratropium nasal 21 mcg/inh spray See Instructions, PRN Nasal Congestion, 1 spray each nostril BID, # 1 each, 4 Refills, Maintenance,10/14/20 10:50:00 AM EDT, [facility], Partial fill upon patient request [...] 5 Refills, Maintenance, 06/16/24 3:30:00 PM EST, [facility], 160, cm, 09/20/23 8:37:00 EDT, [...] 1 Refills, Maintenance, 09/19/22 11:44:00 AM EDT, [facility], 160, cm, 08/03/22 11:52:00 EST, Height Start Date: 09/19/22 Status: Ordered Quantity: 100.0 Unit: Repeat number: 1 Nicotrol NS 10 mg/mL nasal spray 1 sprays, Nares, Both, Every 2 hours, PRN as needed for smoking cessation, # 10 mL, 11 Refills, Acute 09/20/24 9:57:00 AM EDT, 09/20/23 9:57:00 AM EDT, [place], [facility], Partial fill upon patient request [...] 4 WEEKS, # 120 tablet, 0 Refills, [facility], 160, cm, 10/24/21 10:32:00 EDT, [...] Refills, Maintenance, 09/23/23 4:04:00 PM EDT, Aerosol, [facility], Partial fill upon patient request [...] Replace Required Details, Route to Pharmacy Electronically, [id number], [facility], 160, cm, 09/20/23 8:37:00 EDT, [...] 5 Refills, Maintenance, 06/16/24 3:30:00 PM EST, [facility], 160, cm, 09/20/23 8:37:00 EDT, [...] on: 06/17/24 Sex Sex Representation Female (finding) Laboratory * Event Display: Non BH Lab Results Authored Date: * Event Display: Non BH Lab Results Authored Date: * Event Display: Non BH Lab Results Authored Date: Patient Care team information Care Team Personnel Name: Isabel Lewis DO Position: [facility] Outreach Member Role: PCP Address: [address] [place] [address] Telecom: Care Team Related Persons Name: CATHERINE URRUTIA Name: [employer], [employer] Insurance Providers Guarantor name: GINI [facility] Information #: 1 Payer: [facility]/ONE CARE Member Number: NA Policy Number: NA Group Number: NA
--- OUTSIDE RECORDS SUMMARY | 2024-07-23 12:45 | XMS_ITS | Encounter Summary ---
Author Organization [employer] Address 75 [facility] 7t [place] [address] Care Team Providers Care Political Science Research Assistant Name Role Phone Isabel Lewis DO Primary Care Provider [phone] Marti Elder PharmD Unavailable [phone] Dimitris Arambula WOOD ENGRAVER Unavailable Unavailable Reason for Visit * Reason Comments Med Refill Encounter Details Date Type Department Care Team (Late st Contact Info) Description 07/12/2024 Refill [facility] MEDICINE [address] [place], [place] [phone] Isabel Lewis DO 230 [place], [place] [phone] Osteopenia, unspecified location; Mood disorder (CMS/HCC) Social History Tobacco Use [...] the past 12 months, has t he [email or web address], gas, oil or water [email or web address] threatened to shut off services in your [...] Description 08/04/2024 9:15 AM EST Office Visit [facility] MEDICINE [address] [place] [address] Sheila Gonzales MD [address] [place] [address] 08/05/2024 10:30 AM EST Medication Management [address] [address] Marti Elder PharmD [address] [place] [address] documented as of this encounter Goals Goal [...] as of this encounter Visit Diagnoses Diagnosis Osteopenia, unspecified location Mood disorder (CMS/HCC) Unspecified episodic mood disorder documented in this encounter Additional Health Concerns Assessment Noted Time PHQ-9 Depression Total Score: 9 07/02/19 24 9:27 AM EST documented as of this encounter Care Teams Political Science Research Assistant Relationship Specialty Start Date End Date Isabel Lewis DO [address] [place] [address] PCP - General Family Medicine 06/03/18 Marti Elder PharmD [address] [place] [address] Pharmacist Internal Medicine 02/22/23 Dimitris Arambula FNP [address] [place] [address] Nurse Practitioner Family Medicine 04/24/23 documented as of this encounter
--- OUTSIDE RECORDS SUMMARY | 2024-07-23 12:45 | XMS_ITS | Encounter Summary ---
Author Organization [employer] Address 75 [facility] 7t [place] [address] Care Team Providers Care Background Investigator Name Role Phone Isabel Lewis DO Primary Care Provider Marti Elder PharmD Unavailable [phone] Dimitris Arambula SOLID TIRE TUBER MACHINE OPERATOR Unavailable Unavailable Reason for Visit * Reason Onset Date Comments ER Follow-up 07/13/2024 Encounter Details Date Type Department Care Team (Late st Contact Info) Description 07/13/2024 Telephone [facility] MEDICINE [address] [place], [place] [phone] Isabel Lewis DO [address] [place], [place] [phone] ER Follow-up Social History Tobacco Use Types Packs/Day Years [...] encounter Miscellaneous Notes * Telephone Encounter - Kimberly Chong RN - 07/13/2024 2:01 PM EST Pt discharged from [facility] 07/09/24 Dx: Uncontrolled diabetes with hyperglycemia, acute hypokalemia, chest pressure. T/C to pt via [employer] #[id number] to schedule HDF appointment. Pt's son answeredand attempted to initiate 3 way call with pt who did not answer. Son agrees to ask to to return call to Red team nurses. * Telephone Encounter - Marylu Weiss - 07/13/2024 9:44 AM EST Pt walked in requesting ED Follow up apt. Pt states she went to [facility] last week and has been calling our call center to report it and get follow up apt but has had no luck. Pts number confirmed [phone]. documented in this encounter Plan of Treatment Upcoming Encounters Date Type Department Care Team (Late st Contact Info) Description 08/04/2024 9:15 AM EST Office Visit [facility] MEDICINE [address] [place] [address] Sheila Gonzales MD [address] [facility], [place] [phone] 08/05/2024 10:30 AM EST Medication Management [facility] 230 [facility] [place], [place] [phone] Marti Elder PharmD [address] [place], [place] documented as of this encounter Goals [...] documented as of this encounter Care Teams Background Investigator Relationship Specialty Start Date End Date Isabel Lewis DO [place], [place] [phone] PCP - General Family Medicine 06/03/18 Marti Elder PharmD [place], [place] [phone] Pharmacist Internal Medicine 02/22/23 D[place]ris [place] [address] Nurse Practitioner Family Medicine 04/24/23 documented as of this encounter
--- OUTSIDE RECORDS SUMMARY | 2024-07-23 12:45 | XMS_ITS | Encounter Summary ---
Author Organization [employer] Address 75 [facility] 7t [place] [address] Care Team Providers Care Director Of Mechanical Engineering Name Role Phone Isabel Lewis DO Primary Care Provider [phone] Marti Elder PharmD Unavailable [phone] Dimitris Arambula FIREBRICK LAYER HELPER Unavailable Unavailable Reason for Visit * Reason Comments Med Refill Encounter Details Date Type Department Care Team (Late st Contact Info) Description 07/05/2023 Refill [facility] MED & PEDS [address] [place] [address] Isabel Lewis DO 230 [place] [address] Asthma, unspecified asthma severity, unspecified whether complicated, [...] the past 12 months, has t he [employer], [employer], oil or water [employer] threatened to shut off services in your [...] Description 08/04/2024 9:15 AM EST Office Visit [facility] MEDICINE [address] [place] [address] Sheila Gonzales MD [address] [place] [address] 08/05/2024 10:30 AM EST Medication Management [facility] MEDICINE [address] [place] [address] Marti Elder PharmD [address] [place] [address] documented as of this encounter Goals Goal [...] documented as of this encounter Care Teams Director Of Mechanical Engineering Relationship Specialty Start Date End Date Isabel Lewis DO [address] [place] [address] PCP - General Family Medicine 06/03/18 Marti Elder PharmD [address] [place] [address] Pharmacist Internal Medicine 02/22/23 Dimitris Arambula FNP [address] [place] [address] Nurse Practitioner Family Medicine 04/24/23 documented as of this encounter
--- OUTSIDE RECORDS SUMMARY | 2024-07-23 12:45 | XMS_ITS | Encounter Summary ---
Author Organization [employer] Address 75 [facility] 7t [place] [address] Care Team Providers Care Lap Polisher Name Role Phone Isabel Lewis DO Primary Care Provider [phone] Marti Elder PharmD Unavailable Dimitris Arambula ELECTRICAL LINEMAN Unavailable Unavailable Reason for Visit * Reason Onset Date Comments Durable Medical Equipment 06/04/2024 [facility] Encounter Details Date Type Department Care Team (Late st Contact Info) Description 06/04/2024 Telephone [facility]ICINE 230 [place], [place] [phone] Isabel Lewis DO [address] [place], [place] [phone] Durable Medical Equipment ([facility] ) Social History Tobacco Use Types Packs/Day [...] the past 12 months, has t he [employer], gas, oil or water company threatened to [...] encounter Miscellaneous Notes * Telephone Encounter - Shyann Gonzalez - 07/15/2024 11:35 AM EST DME RX for [employer] generated and placed on providers desk for signature. * Telephone Encounter - Shyann Gonzalez - 06/04/2024 4:34 PM EST Please see below message from [facility] Customer Support Assistant, and please advise. * Telephone Encounter - Shyann Gonzalez - 06/04/2024 1:46 PM EST ----- Message from Nidia rocha at 06/04/2024 10:58 AM EST ----- Regarding: [facility] Care/ DME Contact: Greetings, I am Nidia Thibodeaux, Donor Processor for [facility] Care Management, requesting the following DME???s on behalf of patient. DME Item: [employer] Supportive DX: Incontinence/ unsteady gait If you should have any inquiries regarding this request, feel free to contact the Donor Processor below. Donor Processor: Nidia Thibodeaux E-mail: [email or web address] Collet Driller: Geri Andrade E-mail: [email or web address] Thanks in advance for your assistance with this request. Sincerely, [facility] One Care Management documented in this encounter Plan of Treatment Upcoming Encounters Date Type Department Care Team (Late st Contact Info) Description 08/04/2024 9:15 AM EST Office Visit [address] [phone] Sheila Gonzales MD [address] [place] [address] 08/05/2024 10:30 AM EST Medication Management [address] [address] Marti Elder PharmD [address] [place] [address] documented as of this encounter Goals Goal [...] documented as of this encounter Care Teams Lap Polisher Relationship Specialty Start Date End Date Isabel Lewis DO [address] [place] [address] PCP - General Family Medicine 06/03/18 Marti Elder, Kwaku [address] [place] [address] Pharmacist Internal Medicine 02/22/23 Dimitris Arambula FNP [address] [place] [address] Nurse Practitioner Family Medicine 04/24/23 documented as of this encounter
--- OUTSIDE RECORDS SUMMARY | 2024-07-23 12:45 | XMS_ITS | Encounter Summary ---
Author Organization [employer] Address 75 [facility] 7t [place] [address] Care Team Providers Care Roller Checker Name Role Phone Isabel Lewis DO Primary Care Provider [phone] Marti Elder PharmD Unavailable [phone] Dimitris Arambula TAPPING MACHINE OPERATOR AUTOMATIC Unavailable Unavailable Encounter Details Date Type Department Care Team (Late st Contact Info) Description 09/13/2023 Orders Only [facility] MEDICINE [address] [place], [place] [phone] Provider, MD [place] Social History Tobacco Use [...] Description 08/04/2024 9:15 AM EST Office Visit [facility] MEDICINE [address] [place] [address] Sheila Gonzales MD [address] [place] [address] 08/05/2024 10:30 AM EST Medication Management [facility] [address] [place] [address] Marti Elder PharmD [address] [place] [address] documented as of this encounter Goals Goal [...] Procedure Name Priority Date/Time Associated Diagnosis Comments COLONOSCOPY Routine 02/12/2019 9:13 AM EDT documented in this encounter Results * Hm Colonoscopy (02/12/2019 9:13 AM EDT) us Historical Provider HEALTH MAINTENANCE Final Result documented in this encounter Visit Diagnoses Not on filedocumented in this encounter Additional Health Concerns Assessment Noted Time PHQ-9 Depression Total Score: 9 07/02/19 24 9:27 AM EST documented as of this encounter Care Teams Roller Checker Relationship Specialty Start Date End Date Isabel Lewis DO 230 [place] [address] PCP - General Family Medicine 06/03/18 Marti Elder PharmD 230 [place] [address] Pharmacist Internal Medicine 02/22/23 Dimitris Arambula FNP 230 [place] [address] Nurse Practitioner Family Medicine 04/24/23 documented as of this encounter
--- OUTSIDE RECORDS SUMMARY | 2024-07-23 12:45 | XMS_ITS | Encounter Summary ---
Author Organization [employer] Address 75 [facility] 7t [place] [address] Care Team Providers Care Manager File Name Role Phone Isabel Lewis DO Primary Care Provider [phone] Marti Elder PharmD Unavailable [phone] Dimitris Arambula MANAGER HEAVY DUTY Unavailable Unavailable Reason for Visit * Reason Comments Transition Of Care (Tcm) HDF unscheduled Encounter Details Date Type Department Care Team (Late st Contact Info) Description 07/23/2024 Patient Outreach [facility] MEDICINE [address] [place], [place] [phone] Isabel Lewis DO [address] [place], [place] [phone] Transition Of Care (Tcm) (HDF unscheduled) Social History Tobacco Use Types Packs/Day Years [...] encounter Miscellaneous Notes * Significant Event - Linsey Patterson - 07/23/2024 9:24 AM EST 07/23/24 0924 Hospital Discharges and Admission for [facility] Type of Visit Hospital Admission Date of Admission/Visit 07/07/24 Date of Discharge 07/09/24 Facility [facility] Diagnosis Hypokalemia Disposition Discharged Home Follow-Up Actions Follow-Up Needed Provider appointment Follow-Up Outcome Spoke to Patient Initial Contact Date 07/23/24 CASEY Stiles placed outbound call to patient for HDF outreach After message was sent by Marti Ames requesting field education coordinator schedule patient. CC placing call to offer patient with an HDF appointment with provider. Patient's name and were confirmed. Several calls were placed to patient by CASEY day in an effort to schedule patient after [place] [facility] [place] no success Patient was educated on the importance of following up with provider following an inpatient admission. Patient offeredan HDF appt and declined all offers by specification writer due to schedule conflicts. patient was informed aboutHDF protocol as providers schedule are booked out of HDF protocol time frame. specification writer expressed anh team nurses for follow up patient agreed. documented in this encounter Plan of Treatment Upcoming Encounters Date Type Department Care Team (Late st Contact Info) Description 08/04/2024 9:15 AM EST Office Visit [facility] MEDICINE [address] [place] [address] [phone] Sheila Gonzales MD [address] [place], [place] [phone] 08/05/2024 10:30 AM EST Medication Management [facility] MEDICINE [address] [place] [address] [phone] Marti Elder PharmD [address] [place] [address] [phone] documented as of this encounter Goals Goal [...] documented as of this encounter Care Teams Manager File Relationship Specialty Start Date End Date Isabel Lewis DO [address] [place] [address] [phone] PCP - General Family Medicine 06/03/18 Marti Elder PharmD [address] [place] [address] [phone] Pharmacist Internal Medicine 02/22/23 Dimitris Arambula FNP [address] [place] [address] Nurse Practitioner Family Medicine 04/24/23 documented as of this encounter
--- OUTSIDE RECORDS SUMMARY | 2024-07-23 12:45 | XMS_ITS | Encounter Summary ---
Author Organization [employer] Address 75 [facility] 7t [place] [address] Care Team Providers Care Pecan Huller Name Role Phone Isabel Lewis DO Primary Care Provider [phone] Puia, Marti PharmD Unavailable [phone] Dimitris Arambula PROPERTY AND CASUALTY INSURANCE AGENT Unavailable Unavailable Encounter Details Date Type Department Care Team (Late st Contact Info) Description 06/25/2023 Orders Only [facility] MEDICINE 230 [place], [place] [phone] Puia, Marti, PharmD 230 [place], [place] [phone] Social History Tobacco Use Types Packs/Day Years [...] Description 08/04/2024 9:15 AM EST Office Visit [address] [address] Sheila Gonzales MD [address] [place] [address] 08/05/2024 10:30 AM EST Medication Management [address] [address] Marti Elder PharmD [address] [place] [address] documented as of this encounter Goals Goal [...] documented as of this encounter Care Teams Pecan Huller Relationship Specialty Start Date End Date Isabel Lewis DO [address] [place] [address] PCP - General Family Medicine 06/03/18 Marti Elder PharmD [address] [place] [address] Pharmacist Internal Medicine 02/22/23 Dimitris Arambula FNP [address] [place] [address] Nurse Practitioner Family Medicine 04/24/23 documented as of this encounter
--- OUTSIDE RECORDS SUMMARY | 2024-07-23 12:46 | XMS_ITS | Encounter Summary ---
Author Organization [employer] Address [address] [place] [address] 7t [place] [address] Care Team Providers Care Writing Center Director Name Role Phone Isabel Lewis DO Primary Care Provider [phone] Franki Walton PharmD Unavailable Unavail able Marti Elder PharmD Unavailable [phone] Dimitris Arambula DIRECTOR OF VENDOR MANAGEMENT Unavailable Unavailable Reason for Visit * Reason Comments Med Refill Encounter Details Date Type Department Care Team (Late st Contact Info) Description 07/05/2022 Refill [facility] CHC MED & PEDS [address] [place] [address] Isabel Lewis DO 230 [place] [address] Asthma, unspecified asthma severity, unspecified whether complicated, [...] 08/04/2024 9:15 AM EST Office Visit [facility] MEDICINE 230 [place], [place] [phone] Sheila Gonzales MD [address] [place] [address] 08/05/2024 10:30 AM EST Medication Management [facility] MEDICINE [address] [place] [phone] Marti Elder PharmD [address] [place] [phone] documented as of this encounter Visit Diagnoses Diagnosis Asthma, unspecified asthma severity, unspecified whether complicated, unspecified whether persistent- Primary documented in this encounter Additional Health Concerns Assessment Noted Time PHQ-9 Depression Total Score: 8 07/03/19 9:46 AM EST documented as of this encounter Care Teams Writing Center Director Relationship Specialty Start Date End Date Isabel Lewis DO [address] [place] [address] PCP - General Family Medicine 06/03/18 Franki Walton, MisbahD [address] [place] [address] Pharmacist Internal Medicine 09/13/22 02/21/23 Marti Elder PharmD [address] [place] [address] Pharmacist Internal Medicine 02/22/23 Dimitris Arambula FNP [address] [place] [phone] Nurse Practitioner Family Medicine 04/24/23 documented as of this encounter
--- OUTSIDE RECORDS SUMMARY | 2024-07-23 12:46 | XMS_ITS | Encounter Summary ---
Author Organization [employer] Address 75 [facility] 7t [place] [address] Care Team Providers Care Dry Cell Tester Name Role Phone Isabel Lewis DO Primary Care Provider [phone] Franki Walton PharmD Unavailable Unavail able Marti Elder PharmD Unavailable [phone] Dimitris Arambula ELECTRIC MOTOR WINDER Unavailable Unavailable Encounter Details Date Type Department Care Team (Late Contact Info) Description 08/09/2022 Orders Only [facility] CHC MED & PEDS 505 [place] [address] Isabel Baca LPN Social History Tobacco Use [...] Office Visit [facility] MEDICINE [address] [place] [address] Sheila Gonzales MD 230 [facility] [place] [address] 08/05/2024 10:30 AM EST Medication Management [facility] [address] [facility] [place] [address] Marti Elder PharmD [place], [place] documented as of this encounter Visit Diagnoses Not on filedocumented in this encounter Additional Health Concerns Assessment Noted Time PHQ-9 Depression Total Score: 10 023 10:45 AM EST documented as of this encounter Care Teams Dry Cell Tester Relationship Specialty Start Date End [place] [address] PCP - General Family Medicine 06/03/18 Franki Walton, MisbahD [address] [place] [phone] Pharmacist Internal Medicine 09/13/22 02/21/23 Marti Elder, PharmD [address] [place] [address] Pharmacist Internal Medicine 02/22/23 Dimitris Arambula FNP [address] [place] [phone] Nurse Practitioner Family Medicine 04/24/23 documented as of this encounter
--- OUTSIDE RECORDS SUMMARY | 2024-07-23 12:46 | XMS_ITS | Encounter Summary ---
Author Organization [employer] Address [address] [place] [address] 7t [place] [address] Care Team Providers Care Pleater Name Role Phone Isabel Lewis DO Primary Care Provider Franki Walton PharmD Unavailable Unavail able Marti Elder PharmD Unavailable Dmiitris Arambula REHABILITATION SERVICES MANAGER Unavailable Unavailable Reason for Visit * Reason Comments Med Refill Encounter Details Date Type Department Care Team (Late st Contact Info) Description 06/20/2022 Refill [facility] MEDICINE [address] [place] [address] [phone] Isabel Lewis DO 230 [place], [place] [phone] Mild persistent asthma, uncomplicated Social History Tobacco [...] Visit [facility] MEDICINE [address] [place] [address] [phone] Sheila Gonzales MD 230 [place], [place] [phone] 08/05/2024 10:30 AM EST Medication Management [facility] MEDICINE 230 [place] [address] Marti Elder PharmD 230 [place], [place] documented as of this encounter Visit Diagnoses Diagnosis Mild persistent asthma, uncomplicated documented in this encounter Additional Health Concerns Assessment Noted Time PHQ-9 Depression Total Score: 9 05/22/20 22 12:49 PM EST documented as of this encounter Care Teams Pleater Relationship Specialty Start Date End Date Isabel Lewis DO [address] [place] [phone] PCP - General Family Medicine 06/03/18 Franki Walton, MisbahD [address] [place] [phone] Pharmacist Internal Medicine 09/13/22 02/21/23 Marti Elder, MisbahD [address] [place] [phone] Pharmacist Internal Medicine 02/22/23 Dimitris Arambula FNP [address] [place] [address] Nurse Practitioner Family Medicine 04/24/23 documented as of this encounter
--- OUTSIDE RECORDS SUMMARY | 2024-07-23 12:46 | XMS_ITS | Encounter Summary ---
Author Organization [employer] Address 75 [facility] 7t [place] [address] Care Team Providers Care Tenderizer Tender Name Role Phone Isabel Lewis DO Primary Care Provider [phone] DelFranki tam PharmD Unavailable Unavail able Marti Elder PharmD Unavailable [phone] Dimitris Arambula BUS INFO CONSULTANT Unavailable Unavailable Encounter Details Date Type Department Care Team (Late st Contact Info) Description 06/14/[address] [facility] CHC MED & PEDS [address] [place] [address] Isabel Baca LPN Social History Tobacco Use [...] Description 08/04/2024 9:15 AM EST Office Visit [address] [address] Sheila Gonzales MD [address] [place] [address] [phone] 08/05/2024 10:30 AM EST Medication Management [address] [phone] Marti Elder PharmD 230 [facility] [place] [address] documented as of this encounter Visit Diagnoses Not on filedocumented in this encounter Additional Health Concerns Assessment Noted Time PHQ-9 Depression Total Score: 9 05/22/20 22 12:49 PM EST documented as of this encounter Care Teams Tenderizer Tender Relationship Specialty Start Date End Date Isabel Lewis DO [place] [facility] [place] [address] PCP - General Family Medicine 06/03/18 Franki Walton PharmD [address] [place] [phone] Pharmacist Internal Medicine 09/13/22 02/21/23 Marti Elder PharmD 230 [place] [address] Pharmacist Internal Medicine 02/22/23 Dimitris Arambula FNP [address] [place] [address] Nurse Practitioner Family Medicine 04/24/23 documented as of this encounter
--- OUTSIDE RECORDS SUMMARY | 2024-07-23 12:46 | XMS_ITS | Encounter Summary ---
Author Organization [employer] Address 75 [facility] 7t [place] [address] Care Team Providers Care Calender Supervisor Name Role Phone Isabel Lewis DO Primary Care Provider [phone] DelFranki tam PharmD Unavailable Unavail able Marti Elder PharmD Unavailable [phone] Dimitris Arambula SUPERVISOR CUTTING AND BONING Unavailable Unavailable Encounter Details Date Type Department Care Team (Late st Contact Info) Description 07/10/2022 Orders Only [facility] CHC MED & PEDS 505 [place], [place] [phone] Isabel Baca LPN Social History Tobacco Use [...] Description 08/04/2024 9:15 AM EST Office Visit [facility] MEDICINE 230 [place], [place] [phone] Sheila Gonzales MD 230 [place] [address] 08/05/2024 10:30 AM EST Medication Management [facility] MEDICINE [address] [place] [address] Marti Elder, PharmD [address] [facility] [address] documented as of this encounter Procedures Procedure Name Priority Date/Time Associated Diagnosis Comments CREATININE, SERUM Routine 07/10/2022 9:2 0 AM EST CBC WITH AUTO DIFFERENTIAL Routine 07/10/2022 9:20 AM EST ALT Routine 07/10/2022 9:20 AM EST AST Routine 07/10/2022 9:20 AM EST documented in this encounter Results * ALT (07/10/2022 9:20 AM EST) Alanine Aminotransferase 8 0 - 31 U/L [facility] 07/10/2022 9:20 AM EST 07/10/2022 9:22 AM EST [facility] External Provider LAB BLO OD ORDERABLES Final Result Performing Organization Address City/[facility]/ZIP Co de Phone Number [facility] [address] [place] [phone] * AST (07/10/2022 9:20 AM EST) Aspartate Amino Transferase 10 5 - 31 U/L [facility] 07/10/2022 9:20 AM EST 07/10/2022 9:22 AM EST [facility] External Provider LAB BLO OD ORDERABLES Final Result Performing Organization Address City/[facility]/ZIP Co de Phone Number [facility] [address] [place] [address] [phone] * Creatinine, Serum (07/10/2022 9:20 AM EST) Creatinine, Serum 0.74 0.5 - 1.4 mg/dL [facility] Estimated Glomerular Filt Rate >60 [facility] Comment:NOTE: For -Am erican individuals, multiply the result by 1.210.Chronic Kidney Disease: Estimated GFR < 60 mL/min/1.28g5Emlgby Kidney Disease: Estimated GFR < 15 mL/min/1.73m2 07/10/2022 9:20 AM EST 07/10/2022 9:22 AM EST [facility] External Provider LAB BLO OD ORDERABLES Final Result [facility] [address] [place] [address] [phone] * (ABNORMAL) CBC auto differential (07/10/2022 9:20 AM EST) White Blood Count 10.9(H) 4.8 - 10.8 X10*3/uL [facility] Red Blood Count 4.65 4.20 - 5.50 X10*6/uL [facility] Hemoglobin 11.8(L) 12.0 - 16.0 g/dl [facility] Hematocrit 36.7(L) 37.0 - 47.0 % [facility] Mean Corpuscular Volume 78.9(L) 80.0 - 98.0 fL [facility] Mean Corpuscular Hemoglobin 25.4(L) 27.0 - 33.0 pg [facility] Mean Corpuscular HGB Conc 32.2 31.0 - 35.0 g/dl [facility] Red Cell Distribution Width 16.3(H) 11.0 - 16.0 % [facility] Platelet Count 401(H) 160 - 400 X10*3/uL [facility] Mean Platelet Volume 9.2(L) 9.4 - 12.3 fL [facility] Neutrophils Percent Auto 53.6 45 - 73 % [facility] Imm Gran Pct Auto 0.4 0.0 - 0.4 % [facility] Lymphocytes Percent Auto 39.3 20 - 40 % [facility] Monocytes Percent Auto 4.2 2 - 11 % [facility] Eosinophils Percent Auto 1.9 0 - 4 % [facility] Basophils Percent Auto 0.6 0 - 2 % [facility] NRBC Pct Auto 0.0 0.0 - 0.2 /100WBC [facility] Neutrophils Absolute Auto 5.9 2.0 - 8.3 x10*3/uL [facility] Imm Gran Abs Auto 0.04(H) 0.00 - 0.03 X10*3/uL [facility] Lymphocytes Absolute Auto 4.3 1.2 - 4.9 X10*3/uL [facility] Monocytes Absolute Auto 0.5 0.1 - 1.2 X10*3/uL [facility] Eosinophils Absolute Auto 0.2 0.0 - 0.4 X10*3/uL [facility] Basophils Absolute Auto 0.1 0.0 - 0.2 X10*3/uL [facility] NRBC Abs Auto 0.000 0.0 - 0.012 X10*3/uL [facility] 07/10/2022 9:20 AM EST 07/10/2022 9:22 AM EST us [facility] External Provider LAB BLO OD ORDERABLES Final Result [facility] [address] [place] [address] [phone] documented in this encounter Visit Diagnoses Not on filedocumented in this encounter Additional Health Concerns Assessment Noted Time PHQ-9 Depression Total Score: 8 07/03/19 23 9:46 AM EST documented as of this encounter Care Teams Calender Supervisor Relationship Specialty Start Date End Date Isabel Lewis DO [address] [place] [phone] PCP - General Family Medicine 06/03/18 Franki Walton, PharmD [address] [place] [address] Pharmacist Internal Medicine 09/13/22 02/21/23 Marti Elder, PharmD [address] [place] [address] Pharmacist Internal Medicine 02/22/23 Dimitris Arambula FNP [address] [place] [address] Nurse Practitioner Family Medicine 04/24/23 documented as of this encounter
--- OUTSIDE RECORDS SUMMARY | 2024-07-23 12:46 | XMS_ITS | Encounter Summary ---
Author Organization [employer] Address [address] [place] [address] 7t [place] [address] Care Team Providers Care Fisher Quahog Name Role Phone Isabel Lewis DO Primary Care Provider [phone] Franki Walton PharmD Unavailable Unavail able Marti Elder PharmD Unavailable [phone] Dimitris Arambula Unavailable Unavailable Reason for Visit * Reason Comments Med Refill Encounter Details Date Type Department Care Team (Late st Contact Info) Description 05/25/[address] [phone] Dimitris Arambula FNP Social History Tobacco Use [...] Description 08/04/2024 9:15 AM EST Office Visit [address] [phone] Sheila Gonzales MD 230 [place] [address] 08/05/2024 10:30 AM EST Medication Management [address] [address] Marti Elder PharmD 230 [place] [address] documented as of this encounter Visit Diagnoses Not on filedocumented in this encounter Additional Health Concerns Assessment Noted Time PHQ-9 Depression Total Score: 9 05/22/20 22 12:49 PM EST documented as of this encounter Care Teams Fisher Quahog Relationship Specialty Start Date End Date Isabel Lewis DO [address] [place] [address] PCP - General Family Medicine 06/03/18 Franki Walton, PharmD [address] [place] [address] Pharmacist Internal Medicine 09/13/22 02/21/23 Marti Elder, PharmD [address] [place] [phone] Pharmacist Internal Medicine 02/22/23 Dimitris Arambula FNP [address] [place] [address] 20064 Nurse Practitioner Family Medicine 04/24/23 documented as of this encounter
--- OUTSIDE RECORDS SUMMARY | 2024-07-23 12:46 | XMS_ITS | Encounter Summary ---
Author Organization [employer] Address 75 [facility] 7t [place] [address] Care Team Providers Care Rn Pediatric Icu Name Role Phone Isabel Lewis DO Primary Care Provider [phone] Franki Walton PharmD Unavailable Unavail able Marti Elder PharmD Unavailable [phone] Dimitris Arambula CIGAR WRAPPER TENDER AUTOMATIC Unavailable Unavailable Encounter Details Date Type Department Care Team (Late st Contact Info) Description 07/02/2022 Orders Only [address] [address] Miriam Mcnamara LPN Social History Tobacco Use [...] Description 08/04/2024 9:15 AM EST Office Visit [address] [phone] Sheila Gonzales MD [address] [place] [address] 08/05/2024 10:30 AM EST Medication Management [address] [address] Marti Elder PharmD 230 [place] [address] documented as of this encounter Visit Diagnoses Not on filedocumented in this encounter Additional Health Concerns Assessment Noted Time PHQ-9 Depression Total Score: 9 05/22/20 22 12:49 PM EST documented as of this encounter Care Teams Rn Pediatric Icu Relationship Specialty Start Date End Date Isabel Lewis DO 230 [place] [address] PCP - General Family Medicine 06/03/18 Franki Walton PharmD [address] [place] [address] Pharmacist Internal Medicine 09/13/22 02/21/23 Marti Elder PharmD 230 [place] [address] Pharmacist Internal Medicine 02/22/23 Dimitris Arambula FNP [address] [place] [address] Nurse Practitioner Family Medicine 04/24/23 documented as of this encounter
--- OUTSIDE RECORDS SUMMARY | 2024-07-23 12:47 | XMS_ITS | Encounter Summary ---
Author Organization [employer] Address [address] [facility] [address] [place] [address] Care Team Providers Care [employer] Name Role Phone Isabel Lewis DO Primary Care Provider [phone] Marti Elder PharmD Unavailable [phone] Dimitris Arambula VETERINARY INSPECTOR Unavailable Unavailable Reason for Visit * Reason Comments Elevated Bloof Sugar Encounter Details Date Type Department Care Team (Late st Contact Info) Description 07/06/2024 10:15 AM EST Office Visit [facility] MEDICINE [address] [place], [place] [phone] Radhika Shaw NP [address] [place], [place] [phone] Elevated blood sugar level (Primary Dx); Weakness; [...] the past 12 months, has t he [employer], gas, oil or water [employer] [place] threatened to shut off services in your [...] Index - - documented in this encounter Progress Notes * Radhika Shaw NP - 07/06/2024 10:15 AM EST SUBJECTIVE: Ramona Suarez is a 54 y.o. female presents for sick visit. Complains of general malaise HPI: Patient came in for CDTM visit with clinical pharmacist Marti and noted to be hyperglycemic with reading undetectable by POCT machine. Per Marti, her glucose readings have been persistently elevated in 400's range since being started on biologic Actmera by cylinder tester. Patient reported not feeling well complains of sternal chest pain radiating to her back and generalized numbness and tingling. Per patient's son Baljinder these symptoms started 06/18 when she received her 2nd dose of Actmera. Patient complains of generalized weakness. Patient states she has not been compliant with her insulin dueto the weakness. States she last took her insulin 1 week ago. She is unable to ambulate in the examroom. Current smoker of 8-20 cigarettes per day. Review of Systems Constitutional: Negative. Negative for chills and fever. Respiratory: Positive for shortness of breath. Negative for chest tightness. Cardiovascular: Positive for chest pain. Gastrointestinal: Negative for abdominal pain, constipation, diarrhea and nausea. Endocrine: Positive for polydipsia and polyuria. Genitourinary: Negative for dysuria. Musculoskeletal: Negative for arthralgias, back pain, myalgias and neck pain. Skin: Negative. Negative for rash and wound. Neurological: Positive for weakness and numbness. Negative for light-headedness and headaches. Psychiatric/Behavioral: Negative for behavioral problems, confusion, decreased concentration and suicidal ideas. OBJECTIVE: Visit Vitals BP 103/69 (BP Location: Left arm, Patient Position: Sitting, BP Cuff Size: Large adult) Pulse 101 Temp 99 ??F (37.2 ??C) (Oral) Resp 25 Ht 5' 3 (1.6 m) SpO2 96% BMI 29.65 kg/m?? Smoking Status Every Day BSA 1.84 m?? Patient Active Problem List Diagnosis Mood disorder (CMS/HCC) Chronic alcoholism in remission ([facility]/HCC) Chronic pain syndrome Chronic gastroesophageal reflux disease Hyperparathyroidism ([facility]/HCC) Major depressive disorder Chronic migraine BMI 32.0-32.9,adult Osteopenia Primary ovarian failure PTSD (post-traumatic stress disorder) Type 2 diabetes mellitus ([facility]) Vitamin D deficiency Fatty liver Fibromyalgia Moderate persistent asthma Interstitial lung disease ([facility]/HCC) History of COVID-19 Urinary incontinence Cataracts, bilateral Seen in emergency department Weakness Rheumatoid arthritis ([facility]/HCC) Current Outpatient Medications: albuterol (2.5 MG/3ML) 0.083% nebulizer solution, INHALE 1 AMPULE USING A NEBULIZER FOUR TIMES DAILY NEEDED, Disp: 90 mL, Rfl: 3 Alcohol Swabs (Alcohol Prep) 70 % pads, USE 1 TWICE DAILY DIRECTED, Disp: 100 each, Rfl: 11 amitriptyline (Elavil) 10 MG tablet, TAKE 2 TABLETS BY MOUTH EVERY DAY AT BEDTIME, Disp: 60 tablet,Rfl: 5 ARIPiprazole (Abilify) 20 MG tablet, Take 1 tablet (20 mg) by mouth in the morning., Disp: 90 tablet, Rfl: 1 atorvastatin (Lipitor) 10 MG tablet, TAKE 1 TABLET BY MOUTH AT BEDTIME, Disp: 90 tablet, Rfl: 1 baclofen (Lioresal) 5 MG tablet, TAKE 1 TABLET BY MOUTH THREE TIMES DAILY NEEDED FOR MUSCLE SPASMS OR FOR PAIN, Disp: 60 tablet, Rfl: 3 busPIRone (Buspar) 15 MG tablet, TAKE 1 TABLET BY MOUTH THREE TIMES DAILY IN THE MORNING, AT NOON, AND IN THE EVENING, Disp: 270 tablet, Rfl: 1 Calcium Carb-Cholecalciferol 600-10 MG-MCG tablet, TAKE 1 TABLET BY MOUTH TWICE DAILY IN THE MORNING AND AT BEDTIME, Disp: 180 tablet, Rfl: 3 Chantix Starting Month Carlos 0.5 MG X 11 & 1 MG X 42 tablet therapy pack, Take 1 tablet by mouth., Disp: , Rfl: cholecalciferol (Vitamin D-3) 50 MCG (1999) tablet, TAKE 1 TABLET BY MOUTH EVERY MORNING, Disp: 90 tablet, Rfl: 3 Continuous Blood Gluc Geothermal Powerplant Mechanic (FreeStyle Jt 2 [place]) device, Use to check blood sugar at leastevery 8 hours, Disp: 1 each, Rfl: 0 Continuous Glucose Sensor (FreeStyle Jt 2 Sensor) [facility], TEST BLOOD SUGAR EVERY 8 HOURS AND NEEDED. CHANGE EVERY 14 DAYS, Disp: 2 each, Rfl: 11 [place] Nasal [place] 0.65 % nasal spray, USE 2 SPRAYS IN EACH NOSTRIL FOUR TIMES DAILY (Patient nottaking: Reported on 06/05/2024), Disp: , Rfl: divalproex (Depakote ER) 500 MG 24 hr tablet, TAKE 1 TABLET BY MOUTH TWICE DAILY IN THE MORNING ANDAT BEDTIME, Disp: 180 tablet, Rfl: 1 DULoxetine (Cymbalta) [address] capsule, TAKE 1 CAPSULE BY MOUTH EVERY MORNING, Disp: 90 capsule, Rfl: 1 empagliflozin-metFORMIN (Synjardy) 12.5-1000 MG, Take 1 tablet by mouth with breakfast and with evening meal., Disp: 60 tablet, Rfl: 11 FT Nicotine 21 MG/24HR patch, APPLY 1 PATCH TOPICALLY TO THE SKIN IN THE MORNING DO NOT SMOKE WHILEUSING PATCH, Disp: , Rfl: furosemide (Lasix) 80 MG tablet, Take 80 mg by mouth in the morning., Disp: , Rfl: gabapentin (Neurontin) 300 MG capsule, Take 2 capsules (600 mg) by mouth 3 times daily., Disp: 180 capsule, Rfl: 5 glucagon (Gvoke HypoPen 2-Pack) 1 MG/0.2ML injection, Inject 0.2 mL (1 mg) under the skin 1 (one) time if needed for low blood sugar., Disp: 1 each, Rfl: 2 insulin aspart (NovoLOG FLEXPEN) 100 UNIT/ML pen, Inject 40 units subQ two to three times daily with meals., Disp: 30 mL, Rfl: 2 insulin degludec (Tresiba FlexTouch) 200 UNIT/ML injection, Inject 110 Units under the skin in the morning., Disp: 18 mL, Rfl: 2 leflunomide (Arava) 20 MG tablet, , Disp: , Rfl: magnesium oxide (Mag-Ox) 400 (240 Mg) MG tablet, Take 400 mg by mouth in the morning., Disp: , Rfl: melatonin 5 MG tablet, TAKE 2 TABLETS BY MOUTH EVERY DAY AT BEDTIME FOR SLEEP, Disp: 60 tablet, Rfl: 5 Multiple Vitamins-Iron (Tab-A-Manjeet/Iron) tablet, TAKE 1 TABLET BY MOUTH EVERY MORNING WITH FOOD, Disp: 30 tablet, Rfl: 5 omeprazole (PriLOSEC) [address] capsule, TAKE 2 CAPSULES BY MOUTH TWICE DAILY IN THE MORNING AND EVENING BEFORE MEALS. DO NOT BREAK, CRUSH, DISSOLVE OR CHEW., Disp: 360 capsule, Rfl: 3 OneTouch Delica Lancets 33G misc, 1 each 2 times daily. Use to test blood sugar twice daily as directed, Disp: 100 each, Rfl: 11 OneTouch Ultra Test test strip, USE DIRECTED TO TEST BLOOD SUGAR TWICE DAILY, Disp: 50 strip, Rfl: 11 oxybutynin XL (Ditropan-XL) 5 MG 24 hr tablet, TAKE 1 TABLET BY MOUTH EVERY EVENING, Disp: 30 tablet, Rfl: 5 Pentips 32G X 4 MM misc, USE DIRECTED ONCE DAILY WITH lantus, Disp: 100 each, Rfl: 5 polyethylene glycol, PEG, 3350 (Glycolax) 17 GM/SCOOP powder, TAKE 17 GM MIXED IN 8 OUNCES OF WATERONCE DAILY (Patient not taking: Reported on 06/05/2024), Disp: 510 g, Rfl: 2 predniSONE (Deltasone) 20 MG tablet, TAKE 2 TABLETS BY MOUTH EVERY DAY FOR 5 DAYS, THEN DECREASE BY1/2 TABLET BY MOUTH EVERY 3 DAYS, Disp: , Rfl: QUEtiapine (SEROquel) 200 MG tablet, TAKE 1 TABLET BY MOUTH AT BEDTIME, Disp: 90 tablet, Rfl: 1 riboflavin (vitamin B2) 100 mg tablet tablet, Take 100 mg by mouth 2 times daily., Disp: , Rfl: Spiriva Respimat 2.5 MCG/ACT inhaler, INHALE 2 PUFFS BY MOUTH ONCE DAILY, Disp: , Rfl: Symbicort 160-4.5 MCG/ACT inhaler, INHALE 2 PUFFS BY MOUTH TWICE DAILY IN THE MORNING AND IN THE EVENING. RINSE MOUTH AFTER USING., Disp: , Rfl: Tirzepatide (Mounjaro) 12.5 MG/0.5ML solution auto-injector, Inject 12.5 mg under the skin 1 (one) time per week. Starting ~06/24/23, Disp: 2 mL, Rfl: 11 Tocilizumab (ACTEMRA IV), Dose per rheumatology (4 to 8 mg/kg, max 800 mg/dose) IV over 1 hour oncemonthly, Disp: , Rfl: Urine Glucose-Ketones Test strip, 1 each by In Vitro route if needed each day (BS > 400 mg/dL orsyptoms of DKA (nausea, vomiting, confusion, RUBIO, etc.))., Disp: 50 strip, Rfl: 2 Ventolin HFA 108 (90 Base) MCG/ACT inhaler, INHALE 2 PUFFS EVERY 4 TO 6 HOURS NEEDED, Disp: 18 g, Rfl: 2 Physical Exam Vitals reviewed. Constitutional: General: She is not in acute distress. Appearance: Normal appearance. She is ill-appearing. HENT: Head: Normocephalic and atraumatic. Right Ear: External ear normal. Left Ear: External ear normal. Nose: Nose normal. Mouth/Throat: Mouth: Mucous membranes are dry. Eyes: General: No scleral icterus. Extraocular Movements: Extraocular movements intact. Cardiovascular: Rate and Rhythm: Normal rate. Heart sounds: Murmur heard. Pulmonary: Effort: Pulmonary effort is normal. No respiratory distress. Breath sounds: Normal breath sounds. Chest: Chest wall: Tenderness present. Musculoskeletal: General: Normal range of motion. Cervical back: Normal range of motion. Skin: General: Skin is warm and dry. Neurological: General: No focal deficit present. Mental Status: She is alert and oriented to person, place, and time. Gait: Gait normal. Psychiatric: Mood and Affect: Mood normal. Behavior: Behavior normal. Current Outpatient Medications Medication Sig Dispense Refill albuterol (2.5 MG/3ML) 0.083% nebulizer solution INHALE 1 AMPULE USING A NEBULIZER FOUR TIMES DAILYAS NEEDED 90 mL 3 Alcohol Swabs (Alcohol Prep) 70 % pads USE 1 TWICE DAILY DIRECTED 100 each 11 amitriptyline (Elavil) 10 MG tablet TAKE 2 TABLETS BY MOUTH EVERY DAY AT BEDTIME 60 tablet 5 ARIPiprazole (Abilify) 20 MG tablet Take 1 tablet (20 mg) by mouth in the morning. 90 tablet 1 atorvastatin (Lipitor) 10 MG tablet TAKE 1 TABLET BY MOUTH AT BEDTIME 90 tablet 1 baclofen (Lioresal) 5 MG tablet TAKE 1 TABLET BY MOUTH THREE TIMES DAILY NEEDED FOR MUSCLE SPASMS OR FOR PAIN 60 tablet 3 busPIRone (Buspar) 15 MG tablet TAKE 1 TABLET BY MOUTH THREE TIMES DAILY IN THE MORNING, AT NOON, AND IN THE EVENING 270 tablet 1 Calcium Carb-Cholecalciferol 600-10 MG-MCG tablet TAKE 1 TABLET BY MOUTH TWICE DAILY IN THE MORNINGAND AT BEDTIME 180 tablet 3 Chantix Starting Month Carlos 0.5 MG X 11 & 1 MG X 42 tablet therapy pack Take 1 tablet by mouth. cholecalciferol (Vitamin D-3) 50 MCG (2000 UT) tablet TAKE 1 TABLET BY MOUTH EVERY MORNING 90 tablet 3 Continuous Blood Gluc Ge[employer] Power[employer] Mechanic (FreeStyle Jt 2 [place]) device Use to check blood sugar at least every 8 hours 1 each 0 Continuous Glucose Sensor (FreeStyle Jt 2 Sensor) [facility] [employer] TEST BLOOD SUGAR EVERY 8 HOURS AND NEEDED. CHANGE EVERY 14 DAYS 2 each 11 [place] Nasal [place] 0.65 % nasal spray USE 2 SPRAYS IN EACH NOSTRIL FOUR TIMES DAILY (Patient not taking: Reported on 06/05/2024) divalproex (Depakote ER) 500 MG 24 hr tablet TAKE 1 TABLET BY MOUTH TWICE DAILY IN THE MORNING AND AT BEDTIME 180 tablet 1 DULoxetine (Cymbalta) [address] capsule TAKE 1 CAPSULE BY MOUTH EVERY MORNING 90 capsule 1 empagliflozin-metFORMIN (Synjardy) 12.5-1000 MG Take 1 tablet by mouth with breakfast and with evening meal. 60 tablet 11 FT Nicotine 21 MG/24HR patch APPLY 1 PATCH TOPICALLY TO THE SKIN IN THE MORNING DO NOT SMOKE WHILE USING PATCH furosemide (Lasix) 80 MG tablet Take 80 mg by mouth in the morning. gabapentin (Neurontin) 300 MG capsule Take 2 capsules (600 mg) by mouth 3 times daily. 180 capsule 5 glucagon (Gvoke HypoPen 2-Pack) 1 MG/0.2ML injection Inject 0.2 mL (1 mg) under the skin 1 (one) time if needed for low blood sugar. 1 each 2 insulin aspart (NovoLOG FLEXPEN) 100 UNIT/ML pen Inject 40 units subQ two to three times daily withmeals. 30 mL 2 insulin degludec (Tresiba FlexTouch) 200 UNIT/ML injection Inject 110 Units under the skin in the morning. 18 mL 2 leflunomide (Arava) 20 MG tablet magnesium oxide (Mag-Ox) 400 (240 Mg) MG tablet Take 400 mg by mouth in the morning. melatonin 5 MG tablet TAKE 2 TABLETS BY MOUTH EVERY DAY AT BEDTIME FOR SLEEP 60 tablet 5 Multiple Vitamins-Iron (Tab-A-Manjeet/Iron) tablet TAKE 1 TABLET BY MOUTH EVERY MORNING WITH FOOD 30 tablet 5 omeprazole (PriLOSEC) [address] capsule TAKE 2 CAPSULES BY MOUTH TWICE DAILY IN THE MORNING AND EVENING BEFORE MEALS. DO NOT BREAK, CRUSH, DISSOLVE OR CHEW. 360 capsule 3 OneTouch Delica Lancets 33G misc 1 each 2 times daily. Use to test blood sugar twice daily as directed 100 each 11 OneTouch Ultra Test test strip USE DIRECTED TO TEST BLOOD SUGAR TWICE DAILY 50 strip 11 oxybutynin XL (Ditropan-XL) 5 MG 24 hr tablet TAKE 1 TABLET BY MOUTH EVERY EVENING 30 tablet 5 Pentips 32G X 4 MM misc USE DIRECTED ONCE DAILY WITH lantus 100 each 5 polyethylene glycol, PEG, 3350 (Glycolax) 17 GM/SCOOP powder TAKE 17 GM MIXED IN 8 OUNCES OF WATER ONCE DAILY (Patient not taking: Reported on 06/05/2024) 510 g 2 predniSONE (Deltasone) 20 MG tablet TAKE 2 TABLETS BY MOUTH EVERY DAY FOR 5 DAYS, THEN DECREASE BY 1/2 TABLET BY MOUTH EVERY 3 DAYS QUEtiapine (SEROquel) 200 MG tablet TAKE 1 TABLET BY MOUTH AT BEDTIME 90 tablet 1 riboflavin (vitamin B2) 100 mg tablet tablet Take 100 mg by mouth 2 times daily. Spiriva Respimat 2.5 MCG/ACT inhaler INHALE 2 PUFFS BY MOUTH ONCE DAILY Symbicort 160-4.5 MCG/ACT inhaler INHALE 2 PUFFS BY MOUTH TWICE DAILY IN THE MORNING AND IN THE EVENING. RINSE MOUTH AFTER USING. Tirzepatide (Mounjaro) 12.5 MG/0.5ML solution auto-injector Inject 12.5 mg under the skin 1 (one) time per week. Starting ~06/24/23 2 mL 11 Tocilizumab (ACTEMRA IV) Dose per rheumatology (4 to 8 mg/kg, max 800 mg/dose) IV over 1 hour once monthly Urine Glucose-Ketones Test strip 1 each by In Vitro route if needed each day (BS > 400 mg/dL or syptoms of DKA (nausea, vomiting, confusion, RUBIO, etc.)). 50 strip 2 Ventolin HFA 108 (90 Base) MCG/ACT inhaler INHALE 2 PUFFS EVERY 4 TO 6 HOURS NEEDED 18 g 2 No current facility-administered medications for this visit. Assessment/Plan Diagnoses and all orders for this visit: Elevated blood sugar level Comments: -patient is symptomatic and ill appearing. discussed with son need for emergency intervention. patient is transported to [facility] ED via ambulance for suspected DKA. Nereida HERNANDEZ called report Orders: - POCT Glucose Weakness Other chest pain Comments: -suspect MSK as pain is reproducible with palpation -EKG without acute process and unchanged from previsous reading tracing Orders: - ECG 12 lead Hypoxia Comments: patient's O2 noted to be 85 at lowest. she is started on 2L NC with improvement notable improvement Visit Conducted in: Mauritian Translation by: Provided by [facility] staff member MIGUEL Lobato , documented in this encounter Plan of Treatment Upcoming Encounters Date Type Department Care Team (Late st Contact Info) Description 08/04/2024 9:15 AM EST Office Visit [facility] MEDICINE [address] [place] [phone] Sheila Gonzales MD [address] [place] [address] 08/05/2024 10:30 AM EST Medication Management [facility] MEDICINE [address] [place] [address] Marti Elder PharmD [address] [place] [address] documented as of this encounter Goals Goal [...] (ABNORMAL) POCT Glucose (07/06/2024 10:01 AM EST) [facility] Glucose Blood, POC 500(A) 60 - 200 mg/dL QC Media Lot # [id number] Lot# Expiration Date Blood Capillary blood specimen / Unknown 07/06/2024 10:01 AM EST Radhika Shaw COMPUTER SCIENCES PROFESSOR POINT OF CARE TEST ENTER/EDIT O RDERABLES Final Result documented in this encounter Visit Diagnoses Diagnosis Elevated blood sugar level- Primary Other abnormal glucose Weakness Other malaise and fatigue Other chest pain Hypoxia Hypoxemia documented in this encounter Additional Health Concerns Assessment Noted Time PHQ-9 Depression Total Score: 9 07/02/19 24 9:27 AM EST documented as of this encounter Care Teams [employer] Relationship Specialty Start Date End Date Isabel Lewis DO [address] [place] [address] PCP - General Family Medicine 06/03/18 Marti Elder PharmD [address] [place] [address] Pharmacist Internal Medicine 02/22/23 Dimitris Arambula FNP [address] [place] [id number] Nurse Practitioner Family Medicine 04/24/23 documented as of this encounter
--- OUTSIDE RECORDS SUMMARY | 2024-07-23 12:47 | XMS_ITS ---
Author Organization [facility] Address [address] [place] [address] Care Team Providers Care Gas Meter Mechanic Name Role Phone Isabel Lewis Primary Care Provider Unavaila ble Clinical, Operations Unavailable Unavailable REASON FOR VISIT COVID-19 Screening Encounters Encounter Location Date Provider Diagnosis [facility] [address] [place] [address] 04/08/2023 Operations Clinical PLAN OF TREATMENT No [...]
--- OUTSIDE RECORDS SUMMARY | 2024-07-23 12:47 | XMS_ITS | Encounter Summary ---
Author Organization [employer] Address [address] [facility] [address] [place] [address] Care Team Providers Care Insurance Actuary Name Role Phone Isabel Lewis DO Primary Care Provider [phone] Marti Elder PharmD Unavailable [phone] Dimitris Arambula PROPOSAL LEAD WRITER Unavailable Unavailable Encounter Details Date Type Department [...] Description 08/04/2024 9:15 AM EST Office Visit [address] [address] Sheila Gonzales MD [address] [place] [phone] 08/05/2024 10:30 AM EST Medication Management [address] [address] Marti Elder PharmD [address] [place] [phone] documented as of this encounter Goals Goal [...] documented as of this encounter Care Teams Insurance Actuary Relationship Specialty Start Date End Date Isabel LewisDO [address] [place] [address] PCP - General Family Medicine 06/03/18 Marti Elder PharmD [address] [place] [phone] Pharmacist Internal Medicine 02/22/23 Dimitris Arambula FNP [address] [place] [phone] Nurse Practitioner Family Medicine 04/24/23 documented as of this encounter
--- OUTSIDE RECORDS SUMMARY | 2024-07-23 12:47 | XMS_ITS | Clinical Summary ---
Author Organization [employer] Address [address] [place] [address] [address] [place] [address] Care Team Providers Care Orthotic/Prosthetic Practitioner Name Role Phone Joshua Isabel THOMAS Primary Care Provider [phone] Marti Elder PharmD Unavailable Dimitris Arambula PARACHUTE FOLDER Unavailable Unavailable Allergies Active Allergy Reactions Criticality [...] the morning. 023 Active Continuous Blood Gluc Divisional Human Resources Director (FreeStyle Jt 2 Lead) device Use to check blood sugar at least every 8 hours 1 each 023 Active OneTouch Delica Lancets 33G miscIndications: Type 2 diabetes mellitus without complication, with long-term current use of insulin ([facility]) 1 each 2 times daily. Use to test blood sugar twice daily as directed 100 each 11 023 Active Ventolin HFA 108 (90 Base) MCG/ACT inhalerIndicatio ns:Asthma, unspecified asthma severity, unspecified whether complicated, unspecified whether persistent INHALE 2 PUFFS EVERY 4 TO 6 HOURS NEEDED 18 g 2 Active Deep Sea Nasal Cameron 0.65 % nasal spray USE 2 SPRAYS IN EACH NOSTRIL FOUR TIMES DAILY Active Continuous Glucose Sensor (FreeStyle Jt 2 Sensor) mis TEST BLOOD SUGAR EVERY 8 HOURS AND NEEDED. CHANGE EVERY 14 DAYS 2 each Active albuterol (2.5 MG/3ML) 0.083% nebulizer solutionIndicati ons:Mild persistent asthma, uncomplicated INHALE 1 AMPULE USING A NEBULIZER FOUR TIMES DAILY NEEDED 90 mL 3 Active Spiriva Respimat 2.5 MCG/ACT inhaler INHALE 2 PUFFS BY MOUTH ONCE DAILY Active glucagon (Gvoke HypoPen 2-Pack) 1 MG/0.2ML injectionIndicat ions:Type 2 diabetes mellitus without complication, with long-term current use of insulin ([facility]) Inject 0.2 mL (1 mg) under the skin 1 (one) time if needed for low blood sugar. 1 each 2 024 2024 Active OneTouch Ultra Test test stripIndications :Type 2 diabetes mellitus without complication, with long-term current use of insulin ([facility]) USE DIRECTED TO TEST BLOOD SUGAR TWICE DAILY 50 strip Active leflunomide (Arava) 20 MG tablet Active [...] BY MOUTH EVERY EVENING 30 tablet 5 Active Pentips 32G X 4 MM misc USE DIRECTED ONCE DAILY WITH lantus 100 each 5 Active empagliflozin-me tFORMIN (Synjardy) 12.5-1000 MGIndications:Ty pe 2 diabetes mellitus without complication, with long-term current use of insulin ([facility]) Take 1 tablet by mouth with breakfast and with evening meal. 60 tablet 11 024 2024 Active atorvastatin (Lipitor) 10 MG tablet TAKE 1 TABLET BY MOUTH AT BEDTIME 90 tablet 1 Active busPIRone (Buspar) 15 MG tabletIndication s:Mood disorder ([facility]) TAKE 1 TABLET BY MOUTH THREE TIMES DAILY IN THE MORNING, AT NOON, AND IN THE EVENING 270 tablet 1 Active gabapentin (Neurontin) 300 MG capsule Take 2 capsules (600 mg) by mouth 3 times daily. 180 capsule 5 Active ARIPiprazole (Abilify) 20 MG tablet Take 1 tablet (20 mg) by mouth in the morning. 90 tablet 1 Active Urine Glucose-Ketones Test stripIndications :Type 2 diabetes mellitus without complication, with long-term current use of insulin ([facility]) 1 each by In Vitro route if needed each day (BS > 400 mg/dL or syptoms of DKA (nausea, vomiting, confusion, RUBIO, etc.)). 50 strip 2 Active riboflavin (vitamin B2) 100 mg tablet tablet Take 100 mg by mouth 2 times daily. Active omeprazole (PriLOSEC) [address] capsuleIndicatio ns:Chronic GERD TAKE 2 CAPSULES BY MOUTH TWICE DAILY IN THE MORNING AND EVENING BEFORE MEALS. DO NOT BREAK, CRUSH, DISSOLVE OR CHEW. 360 capsule 3 Active baclofen (Lioresal) 5 MG tabletIndication s:Muscle spasm TAKE 1 TABLET BY MOUTH THREE TIMES DAILY NEEDED FOR MUSCLE SPASMS OR FOR PAIN 60 tablet 3 024 Active Tocilizumab (ACTEMRA IV) Dose per rheumatology (4 to 8 mg/kg, max 800 mg/dose) IV over 1 hour once monthly Active insulin aspart (NovoLOG FLEXPEN) 100 UNIT/ML penIndications:T ype 2 diabetes mellitus without complication, with long-term current use of insulin ([facility]) Inject 40 units subQ two to three times daily with meals. 30 mL 2 025 Active insulin degludec (Tresiba FlexTouch) 200 UNIT/ML injectionIndicat ions:Type 2 diabetes mellitus without complication, with long-term current use of insulin ([facility]) Inject 110 Units under the skin in the morning. 18 mL 2 025 Active QUEtiapine (SEROquel) 200 MG tabletIndication s:Mood disorder ([facility]) TAKE 1 TABLET BY MOUTH AT BEDTIME 90 tablet 1 025 Active Alcohol Swabs (Alcohol Prep) 70 % padsIndications: Type 2 diabetes mellitus without complication, with long-term current use of insulin ([facility]) USE 1 TWICE DAILY DIRECTED 100 each 11 025 Active Chantix Starting Month Carlos 0.5 MG X 11 & 1 MG X 42 tablet therapy pack Take 1 tablet by mouth. 025 Active FT Nicotine 21 MG/24HR patch APPLY 1 PATCH TOPICALLY TO THE SKIN IN THE MORNING DO NOT SMOKE WHILE USING PATCH Active Calcium Carb-Cholecalcif betty 600-10 MG-MCG tabletIndication s:Osteopenia, unspecified location TAKE 1 TABLET BY MOUTH TWICE DAILY IN THE MORNING AND AT BEDTIME 180 tablet 3 025 Active divalproex (Depakote ER) 500 MG 24 hr tabletIndication s:Mood disorder ([facility]) TAKE 1 TABLET BY MOUTH TWICE DAILY IN THE MORNING AND AT BEDTIME 180 tablet 3 025 Active DULoxetine (Cymbalta) [address] capsuleIndicatio ns:Mood disorder (CMS/HCC) TAKE 1 CAPSULE BY MOUTH EVERY MORNING 90 capsule 3 025 Active cholecalciferol VITAMIN D (Vitamin D-3) 50 MCG (1999) tabletIndication s:Osteopenia, unspecified location TAKE 1 TABLET BY MOUTH EVERY MORNING 90 tablet 3 025 Active spironolactone (Aldactone) 25 MG tablet Take 25 mg by mouth in the morning. 025 Active nicotine (Nicoderm, Step 2) 14 MG/24HR patch APPLY 1 PATCH TOPICALLY TO THE SKIN IN THE MORNING DO NOT SMOKE WHILE USING PATCH Active Tirzepatide (Mounjaro) 15 MG/0.5ML solution auto-injector Inject 15 mg under the skin 1 (one) time per week. 2 mL Active furosemide (Lasix) 80 MG tablet Take 80 mg by mouth in the morning. 023 2024 Discontinued(D iscontinued by another clinician) cholecalciferol (Vitamin D-3) 50 MCG (1999) tabletIndication s:Osteopenia, unspecified location TAKE 1 TABLET BY MOUTH EVERY MORNING 90 tablet 3 024 2024 Discontinued Calcium Carb-Cholecalcif betty 600-10 MG-MCG tabletIndication s:Osteopenia, unspecified location TAKE 1 TABLET BY MOUTH TWICE DAILY IN THE MORNING AND AT BEDTIME 180 tablet 3 024 2024 Discontinued divalproex (Depakote ER) 500 MG 24 hr tabletIndication s:Mood disorder (CMS/HCC) TAKE 1 TABLET BY MOUTH TWICE DAILY IN THE MORNING AND AT BEDTIME 180 tablet 1 024 2024 Discontinued DULoxetine (Cymbalta) [address] Emili ns:Mood disorder (CMS/HCC) TAKE 1 CAPSULE BY MOUTH EVERY MORNING 90 capsule 1 024 2024 Discontinued Tirzepatide (Mounjaro) 12.5 MG/0.5ML solution auto-injectorInd ications:Type 2 diabetes mellitus without complication, with long-term current use of insulin (CMS/HCC) Inject 12.5 mg under the skin 1 (one) time per week. Starting ~06/24/23 2 mL 025 2024 Discontinued(D ose adjustment) Tirzepatide (Mounjaro) 10 MG/0.5ML solution auto-injectorInd ications:Type 2 diabetes mellitus without complication, with long-term current use of insulin (CMS/HCC) Inject 10 mg under the skin 1 (one) time per week for 18 days. 025 2024 predniSONE (Deltasone) 20 MG tablet TAKE 2 TABLETS BY MOUTH EVERY DAY FOR 5 DAYS, THEN DECREASE BY 1/2 TABLET BY MOUTH EVERY 3 DAYS 025 2024 Active Problems Problem Noted Date [...] with normal troponin. In contact with her general house worker Dr. Liborio Virgen. -advised to medicinal plant picker prednisone prescribed by pulmonology -encouraged to get CXR ordered by pulmonology -encouraged to follow up pulmonology -ER precautions discussed with pt and her PATHOLOGIST. Type 2 diabetes mellitus 11/20/2016 Mood disorder [...] Encounters Date Type Department Care Team Description 07/23/2024 Telephone [facility] [address] [place] [phone] Marcia Ham, MARY HDF R/S 07/23/2024 Patient Outreach [address] [phone] Isabel Lewis DO Transition Of Care (Tcm) (F unscheduled) 07/13/[address] [phone] Isabel Lewis DO ER Follow-up 07/12/[address] [address] Isabel Lewis DO Osteopenia, unspecified location; Mood disorder (CMS/HCC) 07/09/2024 Patient Outreach [facility] [address] [place] [address] Isabel Lewis DO Transition Of Care (Tcm) (HDF- unscheduled LVM ) 07/06/2024 10:15 AM EST Office Visit [facility] [address] [place] [phone] Radhika Shaw NP Elevated blood sugar level (Primary Dx); Weakness; Other chest pain; Hypoxia 07/06/2024 Orders Only GENERIC EXTERNAL DATA DEPARTMENT Provider, Generic External Data 07/02/2024 11:15 AM EST Office Visit [facility] [address] [place] [phone] Karlene Liang MD Interstitial lung disease ([facility]) (Primary Dx); Seen in emergency department; Weakness; Rheumatoid arthritis, involving unspecified site, unspecified whether rheumatoid factor present ([facility]) 07/02/2024 Travel 06/30/[address] [address] Wendy Hewitt MA chartprep 06/30/[address] [phone] Isabel Lewis DO Nurse Triage 06/18/2024 Orders Only [facility] External Provider, [facility] 06/15/2024 Refill [facility] [address] [place] [phone] Isabel Lewis DO Mood disorder ([facility]); Type 2 diabetes mellitus without complication, with long-term current use of insulin ([facility]) 06/05/2024 Travel 06/04/[address] [phone] Isabel Lewis DO Durable Medical Equipment ([facility] ) 05/03/[address] [address] Isabel Lewis DO Chronic GERD; Muscle spasm 04/23/[address] [address] Isabel Lewis DO ER Follow-up from Last 3 Months Immunizations Name Administration Dates Next Due Hep B, adult 11/15/2023(Deferred: Patient Refused),05/22/2023(Deferred: Patient Refused) Influenza Injectable Quadriv alant Preservative Free IIV4 MDCK 02/22/2023 Influenza injectable quadriv alent IIV4 with preservative 04/11/2018,02/17/2016 Influenza injectable quadriv alent preservative free 07/11/2022,03/06/2021,05/16/2020,04/16,05/06/2017 Influenza, IIV3, injectable 05/03/2015, 4,06/17/2012 Influenza, seasonal, [...] is your housing situation today? I have hillben manzo 10/30/[address] you [...] Description 08/04/2024 9:15 AM EST Office Visit [facility] [address] [place] [phone] Sheila Gonzales MD [address] [place] [phone] 08/05/2024 10:30 AM EST Medication Management [facility] [address] [place] [phone] Marti Elder, PharmD [address] [place] [address] Health Maintenance Due Date Last Done Comments [...] Alcohol/Substance Use Screening 07/02/2025 07/02/2024 Tobacco Screening 07/06/2025 07/06/2024 Mammogram 12/17/2025 12/18/2023, 12/01, 05/12/2021, Additional history [...] GREEN GEL Routine 07/06/2024 1:41 PM EST MAGNESIUM Routine 07/06/2024 1:41 PM EST COMPREHENSIVE METABOLIC PANEL Routine 07/06/2024 1:41 PM EST HIGH SENSITIVITY TROPONIN I Routine 07/06/2024 1:41 PM EST BETA-HYDROXYBUTYRATE Routine 07/06/2024 1:41 PM EST CBC WITH AUTO DIFFERENTIAL Routine 07/06/2024 1:41 PM EST URINALYSIS, COMPLETE, WITH REFLEX TO CULTURE Routine 07/06/2024 1:41 PM EST SARS COV2/INFLUENZA A/B AND RSV RNA QL NAAT Routine 07/06/2024 1:41 PM EST ECG 12-LEAD Routine 07/06/2024 1:28 PM EST [...] Recently Relevant to Health Maintenance Results * (ABNORMAL) Glucose, Whole Blood (07/06/2024 4:08 PM EST) Glucose, Whole Blood 529(HH) 60 - 115 mg/dL [facility] Comment:METER #: [id number] 07/06/2024 4:08 PM EST 07/06/2024 4:11 PM EST us Generic External Data Provider LAB BLOOD ORDERAB LES Final Result Performing Organization Address City/State/[facility] Co de Phone Number [facility] [address] [place] [phone] * (ABNORMAL) High Sensitivity Troponin I (07/06/2024 2:51 PM EST) Only the most recent of3 resultswithin the time period is included. TROPONIN I HIGH SENSITIVITY 58.9(HH) <3.5 - 17.0 ng/L [facility] Comment:Critical value for t est(s):TROP-IHS Results called to mustapha back by:ASHIA Person calling: DANIELLE Date:[id number]:1522The Maher high sensitivity Troponin-I results should beused in conjunction with other diagnostic information suchas ECG, clinical observations and information, and patientsymptoms to aid in the diagnosis of [place]. 07/06/2024 2:51 PM EST 07/06/2024 2:55 PM EST Narrative [facility] - 07/06/2024 3:24 PM EST Comment DO NOT DRAW RPT UNTIL 1541 us Generic External Data Provider LAB BLOOD ORDERAB LES Final Result Performing Organization Address [facility] Co de Phone Number [facility] [address] [place] [phone] * Partial Thromboplastin Time, Activated (APTT) (07/06/2024 2:51 PM EST) Partial Thromboplastin Time 26.2 26.0 - 36.8 SEC [facility] Comment:For information rega rding the monitoring of direct thrombininhibitors, please refer to Pharmacy. 07/06/2024 2:51 PM EST 07/06/2024 2:55 PM EST Generic External Data Provider LAB BLOOD ORDERAB LES Final Result Performing Organization Address [facility] Co de Phone Number [facility] [address] [place] [phone] * Prothrombin Time-INR (07/06/2024 2:51 PM EST) Prothrombin Time 11.6 10.9 - 12.4 SEC [facility] INTERNATIONAL NORM RATIO 1.0 0.9 - 1.1 [facility] Comment:INTERNATIONAL NORMAL IZED RATIO (INR) [...] 2:51 PM EST 07/06/2024 2:55 PM EST Generic External Data Provider LAB BLOOD ORDERAB LES Final Result [facility] [address] [place] [address] [phone] * XR Chest 1 View (07/06/2024 2:31 PM EST) Anatomical Region Laterality Modality Chest Radiographic Lisa ging 07/06/2024 2:31 PM EST Narrative 07/06/2024 2:46 PM EST ? [facility] ?[address] ?[place] [address] ?XRay Report ? Signed ? Patient: Suarez,Ramona ?MR#: [id number] ? : 1970 ?Acct:[id number] ? Age/Sex: 54 / F ?ADM Date: 07/06/24 ? Loc: HO.ED ? Attending Dr: ? Ordering Physician: Siobhan Stuart ?? Date of Service: 07/06/24 ?? Procedure(s): XR chest 1V ?? Accession Number(s): [id number] ? cc: Siobhan Stuart; Isabel Lewis DO [...] by Joey Andrade MD in OV> ? 07/06/24 1442 ? DD/ 1431 ? TD/TT: 07/06/24 1441 ? Mobile Tester: ? Procedure Note Mario Mo - 07/06/[address] [place] [address] XRay Report Signed Patient: Ramona SuarezMR#: [id number] : 1970Acct:[id number] Age/Sex: 54 / FADM Date: 07/06/24 Loc: HO.ED Attending Dr: Ordering Physician: Siobhan Stuart Date of Service: 07/06/24 Procedure(s): XR chest 1V Accession Number(s): [id number] cc: Siobhan Stuart; Isabel Lewis DO EXAMINATION: XR CHEST CLINICAL INFORMATION: chest pain COMPARISON: June 18, 2024 TECHNIQUE: Frontal view of the chest was obtained. FINDINGS: Indistinct margins in the pulmonary hilum and prominence of the interstitial markings. No pleural effusion. No pneumothorax. Osseous structures are intact. XR/XR chest 1V IMPRESSION: Pulmonary edema in the correct clinical settings. Electronically signed by: Joey Caamrillo MD 07/06/2024 02:42 PM EST Dictated By: Joey Robles MD Signed By: <Electronically signed by Joey Andrade MDin OV> 07/06/24 1442 DD/ 1431 TD/TT: 07/06/24 1441 Mobile Tester: [facility] External Provider IMG XR PROCEDURES Final Result * Hold Green Gel (07/06/2024 1:41 PM EST) Hold Green Gel See Note [facility] Comment:Specimen held untest ed for 24 hours; Call to requestChemistry testing. 07/06/2024 1:41 PM EST 07/06/2024 1:48 PM EST Generic External Data Provider HISTORICAL/NON OR DERABLE LABS Final Result [facility] [address] [place] [address] [phone] * (ABNORMAL) Urinalysis, Complete, with Reflex to Culture (07/06/2024 1:41 PM EST) Color Urine Yellow [facility] Appearance Urine Clear [facility] PH 6.5 5.0 - 9.0 [facility] Glucose Urine UA >=1000(A) Negative mg/dL [facility] Urine Blood Negative Negative [facility] Specific [place] - Urine 1.020 1.005 - 1.025 [facility] Urine Protein Negative Neg-Trace mg/dL [facility] Urine Ketones Negative Negative mg/dL [facility] Nitrite Urine Negative Negative [facility] Leukocyte Esterase Urine Negative Negative [facility] RBC Urine 0-2 0 - 2 /HPF [facility] Urine WBC 0-5 0 - 5 /HPF [facility] Urine Squamous Epithelial Cell 0-2 0 - 2 /HPF [facility] Urine Bacteria None Seen None Seen [facility] Hyaline Casts, Urine 0-2 0 - 2 /LPF [facility] 07/06/2024 1:41 PM EST 07/06/2024 1:47 PM EST Narrative [facility] - 07/06/2024 2:05 PM EST [id number], Clean Catch us Generic External Data Provider LAB URINE ORDERAB LES Final Result [facility] [address] [place] [phone] * SARS-CoV-2 RNA, Influenza A/B, and RSV RNA, Ql NAAT (07/06/2024 1:41 PM EST) Only the most recent of2 resultswithin the time period is included. Influenza A PCR NEGATIVE Negative [facility] Influenza B PCR NEGATIVE Negative [facility] Resp Syncy Virus RNA Qual PCR NEGATIVE Negative [facility] SARS COV2 PCR NEGATIVE Negative [facility] Comment:All test results mus t [...] use by authorized laboratories.Testing performed on the [employer] GeneXpert utilizingreal-time RT-PCR.All SARS CoV2 and positive influenza A/B results arereported to [facility]. 07/06/2024 1:41 PM EST 07/06/2024 1:47 PM EST us Generic External Data Provider LAB MICROBIOLOGY - GENERAL ORDERABLES Final Result [facility] [address] [place] [address] [phone] * (ABNORMAL) CBC auto differential (07/06/2024 1:41 PM EST) Only the most recent of2 resultswithin the time period is included. White Blood Count 15.0(H) 4.8 - 10.8 X10*3/uL [facility] Red Blood Count 4.80 4.20 - 5.50 X10*6/uL [facility] Hemoglobin 13.0 12.0 - 16.0 g/dl [facility] Hematocrit 37.2 37.0 - 47.0 % [facility] Mean Corpuscular Volume 77.5(L) 80.0 - 98.0 fL [facility] Mean Corpuscular Hemoglobin 27.1 27.0 - 33.0 pg [facility] Mean Corpuscular HGB Conc 34.9 31.0 - 35.0 g/dl [facility] Red Cell Distribution Width 14.6 11.0 - 16.0 % [facility] Platelet Count 326 160 - 400 X10*3/uL [facility] Mean Platelet Volume 11.7 9.4 - 12.3 fL [facility] Neutrophils Percent Auto 70.7 45 - 73 % [facility] Imm Gran Pct Auto 0.4 0.0 - 0.4 % [facility] Lymphocytes Percent Auto 22.5 20 - 40 % [facility] Monocytes Percent Auto 5.3 2 - 11 % [facility] Eosinophils Percent Auto 0.5 0 - 4 % [facility] Basophils Percent Auto 0.6 0 - 2 % [facility] NRBC Pct Auto 0.0 0.0 - 0.2 /100WBC [facility] Neutrophils Absolute Auto 10.6(H) 2.0 - 8.3 x10*3/uL [facility] Imm Gran Abs Auto 0.06(H) 0.00 - 0.03 X10*3/uL [facility] Lymphocytes Absolute Auto 3.4 1.2 - 4.9 X10*3/uL [facility] Monocytes Absolute Auto 0.8 0.1 - 1.2 X10*3/uL [facility] Eosinophils Absolute Auto 0.1 0.0 - 0.4 X10*3/uL [facility] Basophils Absolute Auto 0.1 0.0 - 0.2 X10*3/uL [facility] NRBC Abs Auto 0.000 0.0 - 0.012 X10*3/uL [facility] 07/06/2024 1:41 PM EST 07/06/2024 1:47 PM EST us Generic External Data Provider LAB BLOOD ORDERAB LES Final Result [facility] [address] [place] [phone] * ECG 12 lead (07/06/2024 1:28 PM EST) Narrative Radhika Shaw NP - 07/06/2024 1:28 PM EST SR EKG without change in morphology from previous us Radihka Shaw NP ECG ORDERABLES Final Result * (ABNORMAL) POCT Glucose (07/06/2024 10:01 AM EST) [facility] Glucose Blood, POC 500(A) 60 - 200 mg/dL QC Media Lot # [id number] Lot# Expiration Date Blood Capillary blood specimen / Unknown 07/06/2024 10:01 AM EST Radhika Shaw NP POINT OF CARE TEST ENTER/EDIT O RDERABLES Final Result * (ABNORMAL) VENOUS BLOOD GAS (06/18/2024 2:20 PM EST) VBG pH 7.54(H) 7.32 - 7.43 [facility] Comment:METER #: [id number] additional_comment: Cb damourd VBG PCO2 27 mmHg [facility] Comment:METER #: [id number] additional_comment: Cb damourd VBG PO2 65 mmHg [facility] Comment:METER #: [id number] additional_comment: Cb damourd VBG Base Excess 1.6 mmol/L [facility] Comment:METER #: [id number] additional_comment: Cb damourd VBG HCO3 23 22 - 26 mmol/L [facility] Comment:METER #: [id number] additional_comment: Tad hopkinsd O2 Sat, Zane 90.0 % [facility] Comment:METER #: [id number] additional_comment: Tad wu 06/18/2024 2:20 PM EST 06/18/2024 2:26 PM EST us Generic External Data Provider LAB BLOOD ORDERAB LES Final Result [facility] [address] [place] [phone] * B Type Natriuretic Peptide (BNP) (06/18/2024 2:15 PM EST) B Type Natriuretic Peptide 23 <100 pg/mL [facility] Comment:For those patients w ho are being treated with Natrecor(nesiritide, recombinant BNP), BNP testing should beperformed at least two hours post treatment in order toensure that only endogenous levels of BNP are detected. 06/18/2024 2:15 PM EST 06/18/2024 2:38 PM EST us Generic External Data Provider LAB BLOOD ORDERAB LES Final Result [facility] [address] [place] [address] [phone] * (ABNORMAL) Comprehensive Metabolic Panel (06/18/2024 2:15 PM EST) Sodium 142 135 - 145 mmol/L [facility] Potassium 3.4 3.3 - 5.1 mmol/L [facility] Chloride 112(H) 96 - 108 mmol/L [facility] Carbon Dioxide 23 22 - 29 mmol/L [facility] Anion Gap 10(L) 12 - 20 [facility] Urea Nitrogen (BUN) 7(L) 9 - 16 mg/dL [facility] Creatinine, Serum 0.78 0.5 - 1.4 mg/dL [facility] Creatinine Clr Calc Pharmacy 83.2 [facility] Comment:Provided height and weight: 162.56 cm,81.6 kg.eGFR (calculated from the MDRD study equation) and eCrCl(calculated from the Cockcroft-Gault equation) are based ondifferent parameters and may not yield comparable results.If eCrCl result is absurd, please check patient'sheight/weight. Estimated Glomerular Filt Rate >60 [facility] Comment:Chronic Kidney Disea se: Estimated GFR < 60 mL/min/[id number] Kidney Disease: Estimated GFR < 15 mL/min/1.73m2 Glucose 188(H) 60 - 115 mg/dL [facility] Calcium 7.9(L) 8.4 - 10.2 mg/dL [facility] Bilirubin, Total 0.3 0.0 - 1.0 mg/dL [facility] Aspartate Amino Transferase 16 5 - 31 U/L [facility] Alanine Aminotransferase <6 0 - 31 U/L [facility] Total Protein 6.5 6.5 - 8.0 g/dL [facility] Albumin Level 3.4(L) 3.5 - 5.0 g/dL [facility] Alkaline Phosphatase 130(H) 39 - 117 U/L [facility] [facility] 06/18/2024 2:15 PM EST 06/18/2024 2:21 PM EST us Generic External Data Provider LAB BLOOD ORDERAB LES Final Result [facility] [address] [place] [address] [phone] * XR Chest 2 Views (06/18/2024 1:27 PM EST) Anatomical Region Laterality Modality Chest Radiographic Lisa ging 06/18/2024 1:27 PM EST Narrative 06/18/2024 1:50 PM EST ? [facility] ?[address] ?[place] [address] ?XRay Report ? Signed ? Patient: Ramona Suarez ?MR#: [id number] ? : 1970 ?Acct:[id number] ? Age/Sex: 54 / F ?ADM Date: 06/18/24 ? Loc: HO.ED ? Attending Dr: ? Ordering Physician: Frances Yen MD ?? Date of Service: 06/18/24 ?? Procedure(s): XR chest 2V ?? Accession Number(s): [id number] ? cc: Frances Yen MD; Isabel Lewis [...] DD/ 1327 ? TD/TT: 06/18/24 1344 ? Mobile Tester: ? Procedure Note Donotuseinterpreter, Image - 06/18/2024 [place] [address] XRay Report Signed Patient: Ramona SuarezMR#: [id number] : 1970Acct:[id number] Age/Sex: 54 / FADM Date: 06/18/24 Loc: HO.ED Attending Dr: Ordering Physician: Frances Yen MD Date of Service: 06/18/24 Procedure(s): XR chest 2V Accession Number(s): [id number] cc: Frances Yen MD; Isabel Lewis DO [...] Joey Camarillo MD 06/18/2024 01:47 PM EST Dictated By: Joey Robles MD Signed By: <Electronically signed by Joey Andrade MDin OV> 06/18/24 1347 DD/ 1327 TD/TT: 06/18/24 1344 Mobile Tester: [facility] External Provider IMG XR PROCEDURES Final [...] EDT Narrative 01/08/2024 1:42 PM EDT ? [facility] ? [address] ?[place] [address] ? Mammography Report ? Signed ? Patient: Suarez,Ramona ?MR#: [id number] ? : 1970 ?Acct:[id number] ? Age/Sex: 53 / F ?ADM Date: 12/18/23 ? Loc: HO.MAMMO ? Attending Dr: Isabel Lewis DO ? Ordering Physician: Isabel Lewis DO ?Results: 1N ?? egative ? Date of Service: 12/18/23 ?Follow Up: 1 Year From Orig ?? inal Mammogram ? Procedure(s): MM tomosynthesis screening BI ?? Accession Number(s): [id number] ? cc: Isabel Lewis DO ? EXAMINATION: ?? MM SCREENING DIGITAL [...] 1338 ? DD/ 1110 ? TD/TT: ? Mobile Tester: ? Procedure Note Mario Mo - 01/08/2024 [facility] [address] [place], [place] [address] Mammography Report Signed Patient: Ramona Suarez#: [id number] : 1970Acct:[id number] Age/Sex: 53 / FADM Date: 12/18/23 Loc: HO.MAMMO Attending Dr: Isabel Lewis DO Ordering Physician: Isabel Lewisults: 1N egative Date of Service: 12/18/23Follow Up: 1 Year From Orig ina Mammogram Procedure(s): MM tomosynthesis screening BI Accession Number(s): [id number] cc: Isabel Lewis DO EXAMINATION: MM SCREENING [...] in OV> 01/08/24 1338 DD/ 1110 TD/TT: Mobile Tester: us Isabel Lewis DO IMG BI PROCEDURES Final Resu lt * Hepatitis Panel, General (04/24/2023 10:28 AM EST) Hepatitis A IgM Nonreactive Nonreactive [facility] Comment:IgM antibodies to RUBIO V not detected; does not exclude earlyacute or recovered HAV infection. ~Hepatitis B Surface Antibody NONREACTIVE Nonreactive [facility] Comment:Nonreactive: < 8.00 mIU/mL Hepatitis B Core Antibody Nonreactive Nonreactive [facility] Hepatitis C Antibody Nonreactive Nonreactive [facility] Comment:Antibodies to HCV no t detected; does not exclude early acuteHCV infection. Hepatitis B Surface Ag Negative Negative [facility] 04/24/2023 10:2 8 AM EST 04/24/2023 10:28 AM EST Generic External Data Provider LAB BLOOD ORDERAB LES Final Result Performing Organization Address [facility] Co de Phone Number [facility] [address] [place] [phone] [phone] * HPV mRNA E6/E7 w/Reflex to HPV Genotypes 16, 18/45 (02/15/2023 12:49 PM EDT) HPV nRNA E6/E7 Not Detected Not Detected [facility] Comment:Methodology: Transcr iption-Mediated AmplificationThis assay detects E6/E7 viral messenger RNA (mRNA) from 14high-risk HPV types (16,18,31,33,35,39,45,51,52,56,58,59,66,68).Cervical sources are required for HPV testing.If a vaginal source from a patient who has had atotal hysterectomy with removal of cervix wassubmitted, please contact the testing laboratoryfor alternative testing options.For additional information, please refer tohttp://education.On Networks/faq/MDS590p1(This link if provided for information/educational purposes only.)THIS TEST WAS PERFORMED AT:[facility] [place] [phone] SERRANO MD HPV mRNA E6/E7 TNP [facility] HPV 16 RNA TNP [facility] HPV 18/45 RNA [facility] 02/15/2023 12:4 9 PM EDT 02/18/2023 9:30 AM EDT us Isabel Lewis DO LAB CYTOLOGY ORDERABLES Shilpi l Result Performing Organization Address [facility]/ZIP Co de Phone Number [facility] [address] [place] [phone] * Pap Smear (02/15/2023 12:49 PM EDT) 02/15/2023 12:4 9 PM EDT 02/18/2023 9:30 AM EDT [facility] - 02/26/2023 1:59 PM EDT ----- ------- Name: SuarezRamona lui ? Age/Sex: 53/F ? : 1970 Unit#: [id number] ?? Attend Dr: Isabel Lewis DO ?Re02/15/23 ?Status: DEP REF ? Location: HO.HHCLNP ? Disch: ? ----- ------- SPEC : [id number] ?RECD: 02/18/23-929 ? STATUS: ??SOUT ? REQ NUM: [id number] ? RADHA: 02/15/23-1249 ? SUBM DR: Isabel Lewis DO ? ENTERED: ??02/18/23-5 ?SP TYPE: Pap Smr ?OTHR : ? ORDERED: ??Pap Smear ? Interpretation ?? Satisfactory for evaluation. ?? Negative for intraepithelial lesion or malignancy. ? HPV mRNA E6/E7: ?NOT DETECTED ? This assay detects E6/E7 viral messenger RNA (mRNA) from 14 high-risk HPV types (16, 18, ?? 31, 33, 35, 39, 45, 51, 52, 56, 58, 59, 66, 68) ? HPV testing performed by [facility], [place], [place]. ??See reference laboratory ?? portion of the EMR for entire report. ?Clinical Information LMP: Unknown date Previous PAP test: Unknown date/findings ? Material Received ?? ThinPrep-Vaginal/Cervical ----- ------- Signed (signature on file) Geri Lui Shaneka 02/26/23 3073 ? ----- ------- ? END OF REPORT ? us Isabel Joshua DO LAB CYTOLOGY ORDERABLES Shilpi ham Result [facility] [address] [place] [phone] * (ABNORMAL) Lipid Panel, Standard (10/10/2022 10:20 AM EDT) Pathologist [facility] Cholesterol, Total 128 <200 mg/dL [facility] [place] [facility] HDL Cholesterol 45(L) > OR = 50 mg/dL [facility] Triglycerides 137 <150 mg/dL [facility] [place] [facility] LDL Cholesterol 61 mg/dL (calc) [facility] Comment: Reference range: <100 Desirable range <100 mg/dL for primary prevention; ?? <70 mg/dL for patients with CHD or diabetic patients with > or = 2 CHD risk factors. LDL-C is now calculated using the Blaine-James calculation, which is a validated novel method providing better accuracy than the Friedewald equation in the estimation of LDL-C. Blaine VALLE et al. CHLOE. 2013;310(19): 0333-6774 (http://education.Motiga.TechnoSpin/faq/AWA434) Chol/HDLC Ratio 2.8 <5.0 (calc) [facility] Non-HDL Cholesterol 83 <130 mg/dL (calc) [facility] Comment: For patients with diabetes plus 1 major ASCVD risk factor, treating to a non-HDL-C goal of <100 mg/dL (LDL-C of <70 mg/dL) is considered a therapeutic option. Blood Venous blood specimen / Unknown 10/10/2022 10:20 AM EDT 10/10/2022 10:20 AM EDT Narrative [facility] - 10/10/2022 11:04 PM EDT PATIENT UNABLE TO VOID; ADVISED TO RETURN FOR COLLECTION. Isabel Joshua DO LAB BLOOD ORDERABLES Final R esult Performing Organization Address City/[facility] Co de Phone Number [facility] [address], [place] [address] [facility] [address] [place] [address] * ALBUMIN, RANDOM URINE W/CREATININE (01/18/2020 11:16 AM EDT) Creatinine, Urine 164 20 - 275 mg/dL [facility] Microalbumin Urine 1.7 See Note: mg/dL [facility] Comment: Reference Range: ?? Reference Range Not established Microalb/Creat Ratio 10 <30 mcg/mg creat [facility] Comment: ?? The ADA defines [...] DO LAB URINE ORDERABLES Final R esult Performing Organization Address [facility]/ZIP Co de Phone Number [facility] [address] * HIV 1/2 ANTIGEN/ANTIBODY,FOURTH GENERATION W/RFL (01/18/2020 11:16 AM EDT) HIV-1/2 ANTIGEN AND ANTIBODIES, 4TH GENERATION W/ [...] ? For additional information please refer to http://3yy game platform.On Networks/faq/VPC203 (This link is being provided for informational/ educational purposes only.) ? The performance of this assay has not been clinically validated in patients less than 2 years old. ?? HIV-1/2 ANTIGEN AND ANTIBODIES, 4TH GENERATION W/ REFLEX NON-REACT [place] NON-REACT [facility] Comment: HIV-1 antigen and HIV-1/HIV-2 [...] ? For additional information please refer to http://3yy game platform.On Networks/faq/VRU418 (This link is being provided for informational/ educational purposes only.) ? The performance of this assay has not been clinically validated in patients less than 2 years old. ?? HIV-1/2 ANTIGEN AND ANTIBODIES, 4TH GENERATION W/ REFLEX NON-REACT [place] NON-REACT [place] [facility] Comment: HIV-1 antigen and HIV-1/HIV-2 [...] ? For additional information please refer to http://3yy game platform.On Networks/faq/WWD072 (This link is being provided for informational/ [...] ? For additional information please refer to http://Yhat/faq/KMW220 (This link is being provided for informational/ [...] ? For additional information please refer to http://3yy game platform.On Networks/faq/CJS889 (This link is being provided for informational/ [...] ? For additional information please refer to http://3yy game platform.On Networks/faq/PVH942 (This link is being provided for informational/ [...] ? For additional information please refer to http://3yy game platform.On Networks/faq/TTD731 (This link is being provided for informational/ educational purposes only.) ? The performance of this assay has not been clinically validated in patients less than 2 years old. ?? 01/18/2020 11:1 6 AM EDT Isabel Lewis DO LAB BLOOD ORDERABLES Final R esult [facility] [address] * Hm Colonoscopy (02/12/2019 9:13 AM EDT) us Historical Provider MD HEALTH MAINTENANCE Final Result from Last 3 Months or Most Recently Relevant to Health Maintenance [place] [place] [address] - [employer] Care Teams Orthotic/Prosthetic Practitioner Relationship Specialty Start Date End Date Isabel Lewis DO [address] [place] [address] PCP - General Family Medicine 06/03/18 Marti Elder PharmD [address] [place] [address] Pharmacist Internal Medicine 02/22/23 Dimitris Arambula FNP [address] [place] [address] Nurse Practitioner Family Medicine 04/24/23
--- OUTSIDE RECORDS SUMMARY | 2024-07-23 12:47 | XMS_ITS | Encounter Summary ---
Author Organization [employer] Address [address] [facility] 7t [place] [address] Care Team Providers Care Green Hide Inspector Name Role Phone Isabel Lewis DO Primary Care Provider Marti Elder PharmD Unavailable [phone] Dimitris Arambula SENIOR RADIATION THERAPIST Unavailable Unavailable Reason for Visit * Reason Onset Date Comments Nurse Triage 06/30/2024 Encounter Details Date Type Department Care Team (Late st Contact Info) Description 06/30/2024 Telephone [facility] MEDICINE [address] [place], [place] [phone] Isabel Lewis DO [address] [place], [place] [phone] Nurse Triage Social History Tobacco Use Types [...] a reaction to medication , seen at [facility] ED on 06/18/24 . 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 She suddenly began to feel tingling in her hands, panicky, chest pressure, shortness of breath, wheezing Pt then seen at [facility] ER for sx of c/o weakness, dizziness, [...] 07/02/2024 11:15 AM Karlene Liang MD MEDICINE [facility] 07/06/2024 9:30 AM Marti Elder PharmD MEDICINE [facility] Insurance verified as active per Real Time [...] Description 08/04/2024 9:15 AM EST Office Visit [facility] MEDICINE [address] [place] [phone] Sheila Gonzales MD [address] [place] [address] 08/05/2024 10:30 AM EST Medication Management [address] [address] Marti Elder PharmD [address] [place] [address] documented as of this encounter Goals Goal [...] documented as of this encounter Care Teams Green Hide Inspector Relationship Specialty Start Date End Date Isabel Lewis DO [address] [place] [address] PCP - General Family Medicine 06/03/18 Marti Elder PharmD [address] [place] [address] Pharmacist Internal Medicine 02/22/23 Dimitris Arambula FNP [address] [place] [address] Nurse Practitioner Family Medicine 04/24/23 documented as of this encounter
--- OUTSIDE RECORDS SUMMARY | 2024-07-23 12:47 | XMS_ITS | Encounter Summary ---
Author Organization [employer] [facility] Address [address] [facility] 7t [place] [address] Care Team Providers Care Compliance Engineer Products Name Role Phone Isabel Lewis DO Primary Care Provider [phone] Marti Elder PharmD Unavailable [phone] Dimitris Arambula AUTOMATIC SILK SCREEN PRINTER Unavailable Unavailable Reason for Visit * Reason Onset Date Comments chartprep 06/30/2024 Encounter Details Date Type Department Care Team (Late st Contact Info) Description 06/30/2024 Telephone [facility] MEDICINE [address] [place], [place] [phone] Wendy Hewitt MA chartprep Social History Tobacco [...] EST Office Visit [facility] [address] [place] [phone] Sheila Gonzales MD [address] [place] [address] 08/05/2024 10:30 AM EST Medication Management [facility] [address] [place] [phone] Marti Elder PharmD [address] [place] [address] documented as of this encounter Goals Goal Patient Goal Type Associated Problems Recent Progress Patient-Stated? Author Patient will adhere to medication regimen General Ab Medina, Kwaku Hemoglobin A1c < 7 Result Component [...] documented as of this encounter Care Teams Compliance Engineer Products Relationship Specialty Start Date End Date Isabel Lewis DO [address] [place] [phone] PCP - General Family Medicine 06/03/18 Marti Elder PharmD [address] [place] [phone] Pharmacist Internal Medicine 02/22/23 Dimitris Arambula FNP [address] [place] [address] Nurse Practitioner Family Medicine 04/24/23 documented as of this encounter
--- OUTSIDE RECORDS SUMMARY | 2024-07-23 12:47 | XMS_ITS | Patient Health Record ---
Author Organization [facility] Address [address] [place] [address] Care Team Providers Care Heating Unit Mechanic Name Role Phone Isabel Lewis Primary [...] have any question feel free to contact Regional Transfer Liaison-Nidia Thibodeaux at [email or web address] or at [phone]., Item being ordered - Nebulizer with supplies [...] instructions - Ramona address for delivery is [address] [place] [address]. [facility] [address]. Ramona's phone number is [phone] and she is Maori speaking. Clinical Notes Nidia Thibodeaux 08/29 11:13:57 [...] Problem Other malaise (R53.81) Active confirmed Malaise (408217068) Problem Hypertension (I10) Active confirmed Hyp ertension (85597805) Problem Dizziness (R42) Active confirmed Dizzin ess (237041129) Problem Anxiety disorder (F41.9) Active confirmed Anxiety disorde r (542300186) Problem Asthma (J45.909) Active confirmed Asthm a (167176537) Problem Migraines (G43.909) Active confirmed mi graine (disorder) (95705165) Problem COPD (chronic obstructive pulmonary disease) (J44.9) Active confirmed COPD - Chronic obstructive pulmonary disease (35437217) Problem Osteoarthritis (M19.90) Active confirmed Osteoarthritis (258402061) Problem Sleep apnea (G47.30) Active confirmed Sleep apnea (12308565) Problem Arthralgia (M25.50) Active confirmed Ar thralgia (15117029) Problem Post traumatic stress disorder (F43.10) Active confirmed Posttraumatic stress disorder (93212989) Problem Memory loss (R41.3) Active confirmed Me edvin loss (26291734) Problem Fatty liver (K76.0) Active confirmed 19 5924135 Problem Rheumatoid arthritis (M06.9) Active confirmed Rheumatoid arthritis (61216785) Problem Type 2 diabetes mellitus (E11.9) Active confirmed Type 2 diab etes mellitus (02683378) Problem Cognitive impairment (R41.89) Active confirmed Cognitiv e impairment (212667579) Problem Lumbago with sciatica, left side (M54.42) Active confirmed Sciatica (87023305) Problem Fibromyalgia (M79.7) Active confirmed Fibromyalgia (138855560) Problem Major depression, recurrent (F33.9) Active confirmed Recurrent major depression (12783102) Problem Age-related nuclear cataract, bilateral (H25.13) Active confirmed 577747397282119 Problem Gastroesophageal reflux disease without esophagitis (K21.9) Active confirmed 831221493 Problem Other chronic pain (G89.29) Active confirmed 62999495 Problem Bipolar affective disorder, remission status unspecified (F31.9) Active confirmed 84716233 Problem Urinary incontinence, unspecified type (R32) Active confirmed 577341349 Problem Severe persistent asthma, unspecified whether complicated (J45.50) Active confirmed 973335879 Problem COVID-19 (U07.1) Active confirmed 39638 9006 Encounters Encounter Location Date Provider Diagnosis [address] [address] 09/12/2023 Operations Clinical COPD (chronic obstructive pulmonary [...] Insured Coverage Start Date Coverage End Date [address] [place] [address] [id number] RAMONA MCARTHUR Self - patient is the insured 3 [phone]
--- OUTSIDE RECORDS SUMMARY | 2024-07-23 12:47 | XMS_ITS | Encounter Summary ---
Author Organization [employer] Address [address] [facility] 7t [place] [address] Care Team Providers Care Chief Ultrasound Technologist Name Role Phone Isabel Lewis DO Primary Care Provider [phone] Marti Elder PharmD Unavailable Dimitris Arambula TELEPHONE INTERCEPTOR OPERATOR Unavailable Unavailable Encounter Details Date Type Department Care Team (Late st Contact Info) Description 07/02/2024 11:15 AM EST Office Visit [facility] MEDICINE [address] [place], [place] [phone] Karlene Liang MD [address] [place], [place] [phone] Interstitial lung disease (CMS/HCC) (Primary Dx); Seen [...] ED follow-up. PCP Isabel Lewis. Seen at [facility] ED on 06/18/24 . 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 She suddenly began to feel tingling in her hands, panicky, chest pressure, shortness of breath, wheezing Pt then seen at [facility] ER. Seen at [facility] ED 06/22/24 for mid sternal chest pain, [...] to have SOB. She has contacted her dispensing optician Dr. Liborio Virgen who has sent prednisone to the pharmacy and ordered CXR. He will determine her follow up based on those results. She agrees to pharmacy picking tech med and have CXR today. Baseline O2 [...] with normal troponin. In contact with her dispensing optician Dr. Liborio Virgen. -advised to pharmacy picking tech prednisone prescribed by pulmonology -encouraged to get CXR ordered by pulmonology -encouraged to follow up pulmonology -ER precautions discussed with pt and her PORTFOLIO SPECIALIST. Seen in emergency department Weakness Rheumatoid arthritis ([facility]) IVeronica, am serving as a scribe to document services personally performed by Dr. Ren, based on the patient's response to questions by provider and providers statements to me. documented in this encounter Miscellaneous Notes * Assessment & Plan Note - Karlene Liang MD - 07/02/2024 11:04 AM EST Associated Problem(s): Interstitial lung disease ([facility]) Seen in ER 06/22/24 for chest discomfort [...] with normal troponin. In contact with her dispensing optician Dr. Liborio Virgen. -advised to pharmacy picking tech prednisone prescribed by pulmonology -encouraged to get CXR ordered by pulmonology -encouraged to follow up pulmonology -ER precautions discussed with pt and her PORTFOLIO SPECIALIST. documented in this encounter Plan of Treatment Upcoming Encounters Date Type Department Care Team (Late st Contact Info) Description 08/04/2024 9:15 AM EST Office Visit [facility] MEDICINE [address] [place] [address] Sheila Gonzales MD [address] [place] [address] 08/05/2024 10:30 AM EST Medication Management [facility] MEDICINE [address] [place], [place] [phone] Marti Eledr PharmD [address] [place], [place] documented as of this encounter Goals [...] as of this encounter Care Teams Chief Ultrasound Technologist Relationship Specialty Start Date End Date Isabel Lewis DO [place], [place] PCP - General Family Medicine 06/03/18 Marti Elder PharmD [place], [place] [phone] Pharmacist Internal Medicine 02/22/23 Dimitris Arambula FNP [address] [place] [address] Nurse Practitioner Family Medicine 04/24/23 documented as of this encounter
--- OUTSIDE RECORDS SUMMARY | 2024-07-23 12:47 | XMS_ITS | Encounter Summary ---
Author Organization [employer] Address [address] [facility] 7t [place] [address] Care Team Providers Care Dining Service Inspector Name Role Phone Isabel Lewis DO Primary Care Provider [phone] Marti Elder PharmD Unavailable [phone] Dimitris Arambula ACTUARIAL SCIENCE PROFESSOR Unavailable Unavailable Reason for Visit * Reason Comments Med Refill Encounter Details Date Type Department Care Team (Late st Contact Info) Description 04/02/2024 Refill [facility] MEDICINE [address] [place], [place] [phone] Isabel Lewis DO [address] [place], [place] [phone] Social History Tobacco Use Types Packs/Day Years [...] 08/04/2024 9:15 AM EST Office Visit [facility] MEDICINE [address] [place] [phone] Sheila Gonzales MD [address] [place] [address] 08/05/2024 10:30 AM EST Medication Management [facility] MED[facility] [address] [place] [phone] Marti Elder PharmD [address] [place] [address] documented as of this encounter Goals Goal [...] documented as of this encounter Care Teams Dining Service Inspector Relationship Specialty Start Date End Date Isabel Lewis DO [address] [place] [address] PCP - General Family Medicine 06/03/18 Marti Elder PharmD [address] [place] [phone] Pharmacist Internal Medicine 02/22/23 Dimitris Arambula FNP [address] [place] [address] Nurse Practitioner Family Medicine 04/24/23 documented as of this encounter
[2024-07-23 13:20] LABS: MANUAL DIFF FLAG NO
[2024-07-23 13:29] LABS: Basophils Absolute Auto 0.1 X10*3/uL (0.0-0.2); Eosinophils Absolute Auto 0.1 X10*3/uL (0.0-0.4); Hematocrit 37.5 % (37.0-47.0); Hemoglobin 12.1 g/dl (12.0-16.0); Imm Gran Abs Auto 0.05 X10*3/uL (0.00-0.03); Imm Gran Pct Auto 0.4 % (0.0-0.4); Lymphocytes Absolute Auto 4.4 X10*3/uL (1.2-4.9); Lymphocytes Percent Auto 34.5 % (20-40); Mean Corpuscular HGB Conc 32.3 g/dl (31.0-35.0); Mean Corpuscular Hemoglobin 26.9 pg (27.0-33.0); Mean Corpuscular Volume 83.5 fL (80.0-98.0); Mean Platelet Volume 10.8 fL (9.4-12.3); Monocytes Absolute Auto 0.6 X10*3/uL (0.1-1.2); Monocytes Percent Auto 4.9 % (2-11); Neutrophils Absolute Auto 7.4 x10*3/uL (2.0-8.3); Neutrophils Percent Auto 58.2 % (45-73); Platelet Count 329 X10*3/uL (160-400); Red Blood Count 4.49 X10*6/uL (4.20-5.50); Red Cell Distribution Width 16.1 % (11.0-16.0); White Blood Count 12.6 X10*3/uL (4.8-10.8)
[2024-07-23 13:53] LABS: Alanine Aminotransferase 29 U/L (0-31); Albumin Level 3.9 g/dL (3.5-5.0); Alkaline Phosphatase 167 U/L (39-117); Anion Gap 16 (12-20); Aspartate Amino Transferase 30 U/L (5-31); Bilirubin Total 0.4 mg/dL (0.0-1.0); Blood Urea Nitrogen 15 mg/dL (9-16); Calcium 9.9 mg/dL (8.4-10.2); Carbon Dioxide 27 mmol/L (22-29); Chloride 95 mmol/L (96-108); Estimated Glomerular Filt Rate 47; Glucose Random 338 mg/dL (60-115); Potassium 3.8 mmol/L (3.3-5.1); Sodium 134 mmol/L (135-145); Total Protein 7.5 g/dL (6.5-8.0)
[2024-07-24 08:41] LABS: HBc Num1 0.07 S/CO (0.00-0.79); HBsAGNum1 0.34 S/CO (0.00-0.99); Hepatitis B Core Antibody Nonreactive (Nonreactive); Hepatitis B Surface Antigen Negative (Negative); ~HepC Num1 0.08 S/CO (0.00-0.79); ~Hepatitis A Antibody IgM Nonreactive (Nonreactive); ~Hepatitis B Surface Antibody NONREACTIVE (Nonreactive); ~Hepatitis C Antibody Nonreactive (Nonreactive)
[2024-07-26 16:09] LABS: TS Negative Control Passed; TS Panel A 0; TS Panel B 0; TS Positive Control Passed; TSpotTB Negative (Negative)
== END 2024-07-23 11:26 | disposition home or self-care (01) ==
LOC: HO.HHCL 11:25
PROVIDERS: Family Medicine; Student in an Organized Health Care Education/Training Program; Visit Provider Family Medicine
DX: M06.00 Rheumatoid arthritis without rheumatoid factor, unspecified site (principal); Z11.59 Encounter for screening for other viral diseases; Z11.7 Encounter for testing for latent tuberculosis infection; Z72.89 Other problems related to lifestyle
CPT/HCPCS: 36415; 80053; 85025; 86481; 86704; 86706; 86709; 86803; 87340

== ENCOUNTER 2024-12-02 10:20 | Outpatient (REF) | payer OTHER, SELFPAY ==
--- OUTSIDE RECORDS SUMMARY | 2024-08-19 06:15 | XMS_ITS ---
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 Name Role Phone Isabel Lewis Primary Care [...] Problem Status W/U Status Risk Notes Problem Overweight (926420896) Overweight (E66.3) Active confirmed Problem Weakness (24011293) Weakness (R53.1) Active con firmed Problem Urinary incontinence (545602770) Unspecified urinary incontinence (R32) Active confirmed Problem Electrocardiogram abnormal (499730742) Abnormal electrocardiogram [ECG] [EKG] (R94.31) Active confirmed Problem Long QT syndrome (7909962) Long QT syndrome (I45.81) Active confirmed Problem Heart failure (85681421) Heart failure, unspecified (I50.9) Active confirmed Problem Chest pain (15125411) Chest pain, unspecified (R07.9) Active confirmed Problem Dissection of aorta (461023970) Dissection of unspecified site of aorta (I71.00) Active confirmed Problem Rheumatoid arthritis (58576627) Rheumatoid arthritis, unspecified (M06.9) Active confirmed Problem Tachycardia (7588063) Tachycardia, unspecified (R00.0) Active confirmed Problem Precordial pain (14011711) Precordial pain (R07.2) Active confirmed Problem Dizziness and giddiness (661939221) Dizziness and giddiness (R42) Active confirmed Problem Open angle with borderline findings, low risk, 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) Active confirmed Problem Type I diabetes mellitus without complication (532456510) Type 1 diabetes mellitus without complications (E10.9) Active confirmed Problem Trichiasis (32922818) 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, unspecified eyelid (H02.053) Active confirmed Encounters Encounter Location Date Provider Diagnosis [facility] ([facility]) [address] [place] [phone] 08/19/2024 Operations Clinical COPD (chronic obstructive pulmonary [...] Notes * GINI MCARTHURDOB:1970 (54 yo F)Acc No.[id number]:08/19/2024 Patient: GINI ROGERS External Provider: Yani sanford Clinical Resource:Margie Moreno :1970 A ge:54 Y S ex:Female Date:08/19/2024 Address:[address] [place], [place] [phone] Pcp:Isabel Lewsi Patient's Default Facility:[facility] Subjective: * Chief Complaints: * M [...] 08/19/2024 Generated for Abebe brandt/Vasquez/Jessyitting on: 0 12/02/2024 10:57 AM EDT
--- OUTSIDE RECORDS SUMMARY | 2024-12-02 10:57 | XMS_ITS | Data Portability ---
Author Organization [employer], [email or web address] Address [address] [place] [address] Care Team Providers Care Scene Painter Name Role Phone [facility] Referring Provider HIM [facility] OTHER [facility] OTHER Assessment Encounter Date Assessment Date Assessment LastModified by Organization Details LastModified Time 04/03/2023 04/03/2023 I provided real -time medical direction via phone for this encounter, and was available for additional phone based assistance as needed. I have reviewed and agree with the Assessment and Plan as documented by the Construction Mgr. Patient given the opportunity to ask questions via retail field representative Advised if develops CP/severe SOB/turning blue/uncontrolle d n/v/d or black/bloody emesis or stool/ AMS/ syncope/ hi fever unresponsive to APAP to call 911- verbalized understanding of instructions [email or web address] Not available 04/03/2023 14:29:20 10/02/2023 10/02/2023 I provided real -time medical direction via phone for this encounter and was available for additional phone-based assistance as needed. I have reviewed and agree with the Assessment and Plan as documented by the Construction Mgr. Patient given the opportunity to ask questions. [...] numbness. This service was then called. Per banquet supervisor on the scene, no focal deficits with VSS and BG of 220. FAST exam is negative per banquet supervisor and patient does have sensation of the [...] IA, respiratory specimen 2022 023 [email or web address] 0 [facility], [address] [place] [address], [address] [place] [address] 3 14:32:45 BMP, serum or plasma 2022 023 [email or web address] 0 [facility], [address] [place] [address], [phone] 3 14:32:40 urinalysis, dipstick 2022 023 [email or web address] 0 [facility], [address] [place] [address], [phone] 3 14:32:43 BMP, serum or plasma 2022 023 [email or web address] [facility], [address] [place] [address], [phone] 3 17:24:50 glucose, fingerstick , blood 2022 023 MARTHA [facility], [address] [place] [address], [phone] 3 08:32:02 Referral None recorded. Procedures None recorded. Surgeries None recorded. Imaging None recorded. Medication Orders potassium chloride 20 mEq oral packet 2022 023 [email or web address] 0 Not available 3 14:32:40 potassium chloride ER 20 mEq tablet,exte nded release 2022 023 [facility], [address] [place] [address], [id number], 14:30:28 lactated Ringers intravenous solution 2022 023 [...] BUN 10 Not Available Main - Ins [address], [address] [place] [address] 04/01/2023 16:52:56 04/01/2004/01/2023 BMP, serum or plasm a Ca 1.06 Not Available Main - [facility] [address], [address] [place] [address] 04/01/2023 16:52:56 04/01/2004/01/2023 BMP, serum or plasm a CI- 89 Not Available Main - [facility] [address], [address] [place] [address] 04/01/2023 16:52:56 04/01/2004/01/2023 BMP, serum or plasm a CRE 0.8 Not Available Main - Ins [address], [address] [place] [address] 04/01/2023 16:52:56 04/01/2004/01/2023 BMP, serum or plasm a GLU 700 Not Available Main - Ins [address], [address] [place] [address] 04/01/2023 16:52:56 04/01/2004/01/2023 BMP, serum or plasm a K+ 3.4 Not Available Main - Ins [address], [address] [place] [address] 04/01/2023 16:52:56 04/01/2004/01/2023 BMP, serum or plasm a Na+ 128 Not Available Main - [facility] [address], [address] [place] [address] 04/01/2023 16:52:56 04/01/2004/01/2023 BMP, serum or plasm a tCO2 23 Not Available Main - Ins [address], [phone] 04/01/2023 16:52:56 04/03/20 23 04/03/2023 BMP, serum or plasm a BUN 4 Not Available Main - Ins [address], [address] [place] [address] 04/03/2023 14:21:27 04/03/20 23 04/03/2023 BMP, serum or plasm a Ca Ionize d calciu m 1.2 Not Available Main - [address], [address] [place] [address] 04/03/2023 14:21:27 04/03/20 23 04/03/2023 BMP, serum or plasm a CI- 100 Not Available Main - Ins [address], [address] [place] [address] 04/03/2023 14:21:27 04/03/20 23 04/03/2023 BMP, serum or plasm a CRE 0.8 Not Available Main - Ins [address], [address] [place] [address] 04/03/2023 14:21:27 04/03/20 23 04/03/2023 BMP, serum or plasm a GLU 259 Not Available Main - Ins [address], [address] [place] [address] 04/03/2023 14:21:27 04/03/20 23 04/03/2023 BMP, serum or plasm a K+ 3.2 Not Available Main - Ins [address], [address] [place] [address] 04/03/2023 14:21:27 04/03/20 23 04/03/2023 BMP, serum or plasm a Na+ 137 Not Available Main - Ins [address], [address] [place] [address] 04/03/2023 14:21:27 04/03/20 23 04/03/2023 BMP, serum or plasm a tCO2 24 Not Available Main - Ins [address], [address] [place] [address] 04/03/2023 14:21:27 04/03/20 23 04/03/2023 urina lysis , dipst ick Leukocytes neg Not Available [facility] - [address], [address] [place] [address] 04/03/2023 14:21:32 04/03/20 23 04/03/2023 urina lysis , dipst ick Nitrite negati ve Not Available Main - Inst [address], [address] 04/03/2023 14:21:32 04/03/20 23 04/03/2023 urina lysis , dipst ick Urobilinogen neg Not Available Main - Inst[facility] [address] [place] [address], [phone] 04/03/2023 14:21:32 04/03/20 23 04/03/2023 urina lysis , dipst ick Protein neg Not Available Main - Ins [address], [address] 04/03/2023 14:21:32 04/03/20 23 04/03/2023 urina lysis , dipst ick pH 6 Not Available Main - Ins [address], [address] 04/03/2023 14:21:32 04/03/20 23 04/03/2023 urina lysis , dipst ick Blood neg Not Available Main - Ins [address], [address] 04/03/2023 14:21:32 04/03/20 23 04/03/2023 urina lysis , dipst ick Specific [place] 1.005 Not Available Main - [facility] [address] [place] [address], [address] 04/03/2023 14:21:32 04/03/20 23 04/03/2023 urina lysis , dipst ick Ketone neg Not Available Main - Ins [address], [address] 04/03/2023 14:21:32 04/03/20 23 04/03/2023 urina lysis , dipst ick Bilirubin neg Not Available Main - I nsted [address] [place] [address], [address] 04/03/2023 14:21:32 04/03/20 23 04/03/2023 urina lysis , dipst ick Glucose neg Not Available Main - Ins [address], [address] 04/03/2023 14:21:32 04/03/20 23 04/03/2023 urina lysis , dipst ick Appearance clear they were both Not Available Main - Inst ed [address] [place] [address], [address] 04/03/2023 14:21:32 04/03/20 23 04/03/2023 urina lysis , dipst ick Color yellow Not Available Main - Ins govind [address] [place] [address], [address] 04/03/2023 14:21:32 04/03/20 23 04/03/2023 rapid SARS CoV 2 Ag, QL IA, respi rator y speci men rapid SARS CoV 2 Ag, QL IA, respiratory specimen positi ve Not Available Main - Inst ed [address] [place] [address], [address] 04/03/2023 14:19:58 Result Notes None recorded. Medical [...] Not available Not available Not available 04/03/2023 67524 8001 SNOMED Not Available [facility] - production 4 03:57:53 3697 Topamax medicatio n Not available Not available Not available 04/03/2023 26598 3 RxNorm Esther Weston MD [address] [place] [address],[address], [place], [phone], Parse 3 14:18:48 3698 Imitrex medicatio n Not available Not available Not available 04/03/2023 32230 3 RxNorm Esther Weston MD [address] [place] [address],[address], [place], [address], Parse 3 14:18:55 Medications Name Sig Start Date [...] Not Available Not Available No t Available PumantTouch Ultra Test strips USE DIRECTED TO TEST [...] Available No t Available FreeStyle Jt [address] [place] USE DIRECTED EVERY 8 HOURS active Not [...] Available No t Available Vitals Date Recorded Oxygen saturation Oxygen saturation in Arterial blood by Pulse oximetry Body temperature Respiratory rate Heart rate Systolic blood pressure Diastolic blood pressure Provider Name and Address Organization Details Last Updated DateTime 4 97 % 97 % 98.5 [degF] 16 /min 86 /min 132 mm[Hg] 84 mm[Hg] Not Available [employer] 4 14:22:20 Date Recorded Respiratory rate Oxygen saturation Oxygen saturation in Arterial blood by Pulse oximetry Heart rate Body temperature Systolic blood pressure Diastolic blood pressure Provider Name and Address Organization Details Last Updated DateTime 3 18 /min 97 % 97 % 95 /min 97.2 [degF] 136 mm[Hg] 78 mm[Hg] Not Available [employer] 3 16:51:43 Date Recorded Body temperature Oxygen saturation Oxygen saturation in Arterial blood by Pulse oximetry Body weight Respiratory rate Body height Heart rate Systolic blood pressure Diastolic blood pressure Provider Name and Address Organization Details Last Updated DateTime 3 98.1 [degF] 96 % 96 % 89920.4 g 18 /min 152.4 cm 88 /min 114 mm[Hg] 82 mm[Hg] Not Available [employer] 3 13:28:41 Date Recorded Body height Body mass index (BMI) Body weight Provider Name and Address Organization Details Last Updated DateTime 04/03/2023 152.4 cm 39.1 kg/m2 82486.47 g Esther Weston MD [address] [facility],[address], [place], [address], [place] - [employer] 04/03/2023 14:35:10 Date Recorded Oxygen saturation Oxygen saturation in Arterial blood by Pulse oximetry Body temperature Respiratory rate Heart rate Systolic blood pressure Diastolic blood pressure Provider Name and Address Organization Details Last Updated DateTime 3 95 % 95 % 100.5 [degF] 16 /min 93 /min 128 mm[Hg] 76 mm[Hg] Not Available Enbase 13:52:12 Social History None recorded. Functional Status None recorded. Mental Status None recorded. Family History Nothing Reported. Medical History No medical history recorded. Gynecological HistoryNo gynecological history recorded. Obstetrics History GPAL:G 0 P 0 0 0 0 Past Encounters Encounter ID Performer Location Encounter Start Date Encounter Closed Date Diagnosis/Indication Diagnosis SNOMED-CT Code Diagnosis ICD10 Code Diagnosis Note [id number] RADHA SHIELDS MD Main - [facility] [address] [place] [phone] 04/01/2023 16:51:41 04/02/2023 14:54:05 Hyperglycemia 77844023 R73.9 Evaluation in the field was performed by my banquet supervisor colleague, as noted above, I provided real-time [...] insulin at home. I am afraid that Yawba will take long to help with her hyperglyce miaReceive d 1 L of LR.Kcl 40 meq to allow administra tion of insulin VIJAY in the EDPt agrees to go to [facility] ED for further management of her hyperglyce [...] 1 L LR ) to prevent HHS [id number] Tamie Bridges MD Main - [facility] [address] [place] [phone] 04/02/2023 13:28:36 04/02/2023 15:00:10 Hyperglycemia 77938319 R73.9 53 year old female being evaluated for hyperglyce seferino. Patient was seen by [facility] yesterday, codeye keny[facility] ER visit for glucose level >700 and [...] assessment and plan as documented by the banquet supervisor. I provided real-time medical direction for this encounter and was immediatel y available to provide additional phone-base d assistance as needed. [id number] Esther Weston MD Main - [facility] [address] [place] [phone] 04/03/2023 13:52:09 04/03/2023 22:25:35 Hypokalemia 28059300 E87.6 BS 259 she says is her baseline midday-pat aditi is feeling better-the hypokalemi a is normal as the blood sugar decreases- we will place her on supplement ation for the next 5 days (verified her pharmacy is [facility])-anatoliy adams is not spilling glucose or ketones-ad vised to continue her usual medication / f/u wit pcp COVID-19 138759090 U07.1 Advised to continue to rest/ stay well-megan faust-contin ue to quarantine while is positive-s he [...] take tylenol 4 xper day as needed [id number] Oneida Casper MD Main - [facility] [address] [place] [phone] 10/02/2023 14:22:17 10/03/2023 11:26:47 Headache 65879570 R51.9 Health Concerns Section Related Observation LastModified by Organization Detai ls LastModified Time None Recorded Concern Status LastModified by Organization Details LastModified Time None Recorded Advance Directives Directive None Recorded Payers Insurance Date Sequence Insurance Name Policy Number Policy Chin Covered Member ID Chin Member ID Guarantor Name 10/03/2023 1 [facility] - DOS ON OR AFTER 2022 - DUAL ELIGIBLE - ALF OPTIONS AND ONE CARE (MEDICARE REPLACEMENT/ADV ANTAGE - HMO) Ramona Suarez [id number] [facility] Notes Date Note Type Note Provider Name [...] ................... ................... ................... ................... ................... ................... ........ Construction Mgr Note From Davidson Baptiste: Dispatched for the female alliance party experiencing flu-like symptoms, Covid-19 positive as of 03/24/23. Encountered patient supine and conscious in bed with family present, family presents a positive Covid-19 at-home test which reads positive; family expresses the test was performed just prior to [facility] contact. During exam, patient disclosed that she is an insulin dependent diabetic and has not taken her insulin since receiving the first positive test result back on 03/24/23. Patient presents personal glucometer device that reads 'Hi'. [facility] consulted for treatment plan. Skin warm, dry and of appropriate color for ethnicity. Head and neck free of trauma and edema. PERRL. -JVD. Breath sounds present, clear and equal bilaterally. Abdomen soft, non-tender and non-distended. Extremities free of trauma and edema. 4 lead EKG exhibits a sinus rhythm with no present ectopy. 20G IV established in left forearm; BGL Hi. Per [facility] I-stat performed and exhibited a glucose of over 700 mg/DL and a K+ of 3.4. [facility] ordered for patient to self administered 20units of her Tresiba sq. 1L lactated ringers administered via bolus. 40 mEq PO K+ administered. Patient to be transported to [facility] ED for further work-up. [facility] provided transport, this newspaper writer accompanied patient to [facility]. Patient monitored for change in status while en route to [facility], with none noted; remained alert and oriented throughout contact. ................... ................... ................... ................... ................... ................... ................... ........ Disposition: Brian RADHA SHIELDS MD [address] [facility],[address], [place], [address], Parse 04/01/2023 19:20:47 04/02/2023 text/html HPI: Hx: Migraines. Patient today with continued elevated BG 450 via Fingerstick. Seen in [facility] ED last night declined admission. [...] ................... ................... ................... ................... ................... ................... ........ Construction Mgr Note From Herman Navarro: Upon arrival, pt [...] wheezes. Pt refused IV in ACL stating it hurts there. Other access was infiltrated. POC bloodwork unable to be obtained. Pt gave herself a neb treatment she has in home while on scene, and states she is giving herself 4 neb treatments a day. [facility] contacted and pt was administered 40mg potassium oral and was advised to administer a one time dose of 10 units of her insulin in addition to the insulin she is taking per day. Pt told to contact PCP in the morning. Construction Mgr Allergies: Aspirin, Penicillin ................... ................... ................... ................... ................... ................... ................... ........ Disposition: Fulfilled Tamie Bridges MD [address] [place] [address],[address], [place], [address], Parse 04/02/2023 14:11:02 04/03/2023 text/html CRC Nursing Assessment: Reason For Request: Follow up visit from 04/02 Chief Complaints: Diabetes Related, Electrolyte Imbalance, Medication Related PMH: COPD/Asthma, Diabetes Allergies: Aspirin, Penicillin Comments: [facility] Remarks 53 year old female with DM2, [...] elevated BG 450 via Fingerstick. 04/01 in [facility] ED last night declined admission. [...] 40 mEq of potassium and sent to [facility]. She reports she was given 10 units [...] ................... ................... ................... ................... ................... ................... ........... Construction Mgr Note From Davidson Baptiste: Dispatched to the call address for the female with diabetic issue. Pt was seen on Saturday by this banquet supervisor. Pt was found to be hyperglycemic (>700). Pt was given 1L LR, 40mEq of potassium and sent to the ED. Pt left AMA when advised to be admitted to the hospital. Pt was seen yesterday by a different banquet supervisor and given more potassium. Pt states today [...] ........ Disposition: Fulfilled Esther Weston MD [address] [facility],[address], [place], [address], [place] - [employer] 04/03/2023 14:42:14 10/02/2023 text/html HPI: HX: ETOH abuse in remission. NO history of seizure.Patient called to report a seizure as witnessed by her this morning at 730am. No details given. Hung up on Interprter x 3 agreed to home CCA visit.DEclined 911 ED x 3. ................... ................... ................... ................... ................... ................... ................... ........ CRC Nurse Triage Notes (Rosa Isela Hsieh): Comments: HPI reviewed, patient called w/ Structural Engineering Drafting Officer. Check Airman verified the member's name//address and phone number. [...] reports this has never happened before. This newspaper writer strongly encouraged member to present to the emergency room for further work up. Patient declined going to the ED or calling 911 multiple times. Pt reported she is holding off on going (to the ED) and if it comes to the point of needing help she will get it. This newspaper writer explained to member that [facility] would not be able to [...] migraines, [facility].Education provided on the response time and the member was advised to monitor reported s/s and seek emergency treatment if needed. Construction Mgr POC Test Results from Moshe Grewal [facility] Blood Glucose Measurement (1) [11:37] Blood Glucose: 221 mg/dL ................... ................... ................... ................... ................... ................... ................... ........ Construction Mgr Note From Moshe Grewal: Dispatched to the [...] after to inform them of the event. [facility] contacted and informed and noted if the pt. did not want to be seen in the ER to just make sure she called if conditions worsened. all times are approx.report completed by henrry grewal. ................... ................... ................... ................... ................... ................... ................... ........ Disposition: Brian Casper MD [address] [facility],[address], [place], [address], BRYAN DE PAZ 10/02/2023 14:36:43 OBGyn Episode No OBEpisode recorded.
--- OUTSIDE RECORDS SUMMARY | 2024-12-02 10:57 | XMS_ITS | Encounter Summary ---
Author Organization [employer] Address [address] [facility] [address] [place] [address] Care Team Providers Care Metal Coater Name Role Phone Isabel Lewis DO Primary Care Provider [phone] Marti Elder PharmD Unavailable [phone] Dimitris Arambula INSIDE SALES ADMINISTRATOR Unavailable Unavailable Reason for Visit * Reason Comments Med Refill Encounter Details Date Type Department Care Team (Late st Contact Info) Description 03/04/2024 Refill [facility] [address], [place] [phone] Isabel Lewis DO [address] [place], [place] [phone] Social History Tobacco Use Types Packs/Day Years [...] Care Team (Late st Contact Info) Description 12/18/2024 10:00 AM EDT Medication Management [facility] [address] [place] [address] Marti Elder PharmD [address] [place] [address] documented as of this encounter Goals Goal Patient Goal Type Associated Problems Recent Progress Patient-Stated? Author Patient will adhere to medication regimen General No Ab Burns PharmD Hemoglobin A1c < 7 Result Component 9.3( 5 10:52 AM EDT) No Franki Walton PharmD Record your blood [...] documented as of this encounter Care Teams Metal Coater Relationship Specialty Start Date End Date Isabel Lewis DO [address] [place] [phone] PCP - General Family Medicine 06/03/18 Marti Elder PharmD [address] [place] [phone] Pharmacist Internal Medicine 02/22/23 Dimitris Arambula FNP [address] [place] [address] Nurse Practitioner Family Medicine 04/24/23 documented as of this encounter
--- OUTSIDE RECORDS SUMMARY | 2024-12-02 10:57 | XMS_ITS | Clinical Summary ---
Author Organization [facility] Address [address] [place] [address] Phone Care Team Providers Care Drive Away Driver Name Role Phone Isabel Lewis DO Primary Care Provider [phone] Allergies Active Allergy Reactions Criticality Noted Date Comments Penicillins Swelling 06/22/2024 Sumatriptan Unknown 06/22/2024 Topiramate Unknown 06/22/2024 Social History Tobacco Use Types Packs/Day Years [...] 108 06/22/2024 9:34 AM EST Temperature 36.6 C (97.9 F) 06/22/2024 9:34 AM EST Respiratory Rate 24 06/22/2024 9:34 AM EST [...] Screening: Colonoscopy 07/02/2023 Hepatitis C Screening 07/02/2023 Medicare Annual Wellness Visit 07/02/2023 Social Influencers of Health Screening 07/02/2023 [...] age to complete this topic Meningococcal B Vaccine Aged Out No l onger eligible based on patient's age to complete this topic RSV Immunization Patients Under 20 months Aged Out No longer eligible based on patient's age to complete this topic Varicella Vaccines Aged Out No longer eligible based on patient's age to complete this topic Procedures Procedure Name Priority Date/Time Associated Diagnosis Comments BASIC METABOLIC PANEL STAT 06/22/2024 9:48 AM EST from Last 3 Months or Most Recently Relevant to Health Maintenance Results * (ABNORMAL) Basic metabolic panel (06/22/2024 9:48 AM EST) Sodium 135 133 - 145 mmol/L LAB CHEMISTRY METHOD 06/22/2024 11:19 AM [facility] Potassium 3.3(L) 3.5 - 5.5 mmol/L LAB CHEMISTRY METHOD 06/22/2024 11:19 AM [facility] Chloride 96 96 - 110 mmol/L LAB CHEMISTRY METHOD 06/22/2024 11:19 AM [facility] CO2 30 21 - 32 mmol/L LAB CHEMISTRY METHOD 06/22/2024 11:19 AM [facility] Anion Gap 9 3 - 11 LAB CHEMISTRY METHOD 06/22/2024 11:19 AM [facility] Glucose 217(H) 70 - 100 mg/dL LAB CHEMISTRY METHOD 06/22/2024 11:19 AM [facility] BUN 13 5 - 25 mg/dL LAB CHEMISTRY METHOD 06/22/2024 11:19 AM [facility] Creatinine 1.17(H) 0.50 - 1.10 mg/dL LAB CHEMISTRY METHOD 06/22/2024 11:19 AM [facility] eGFR 55(L) >=60 mL/min/1. 73m2 LAB CHEMISTRY METHOD 06/22/2024 11:19 AM [facility] Comment:Calculation based on the Chronic Kidney Disease Epidemiology Collaboration (CKD-EPI) equation refit without adjustment for race. BUN/Creatinine Ratio 11.1 LAB CHEMISTRY METHOD 06/22/2024 11:19 AM [facility] Calcium 8.9 8.5 - 10.5 mg/dL LAB CHEMISTRY METHOD 06/22/2024 11:19 AM EST [facility] Blood Venous blood specimen / Unknown Venipuncture / Unknown 06/22/2024 9:48 AM EST 06/22/2024 10:55 AM EST us Alirio Maurice MD LAB BLOOD ORDERABLES Shilpi cheek Result [facility] [address] [place] [address], [place] [phone] from Last 3 Months or Most Recently Relevant to Health Maintenance Insurance [facility] Member Subscriber Plan / Payer (Ef fective 2024-Present) Name:Ramona Suarez Relation to Subscriber:Self Name:Ramona Suarez Payer ID:[id number] Group ID:Not on file Type:Not on file Address: [place] [facility] [place] [address] Away Driver Relationship Specialty Start Date End Date Isabel Lewis DO [address] [place] [address] PCP - General Family Medicine 06/22/24
[2024-12-02 11:08] LABS: MANUAL DIFF FLAG NO
[2024-12-02 11:20] LABS: Hematocrit 33.4 % (37.0-47.0); Hemoglobin 10.2 g/dl (12.0-16.0); Imm Gran Abs Auto 0.02 X10*3/uL (0.00-0.03); Imm Gran Pct Auto 0.3 % (0.0-0.4); Lymphocytes Absolute Auto 2.9 X10*3/uL (1.2-4.9); Mean Corpuscular HGB Conc 30.5 g/dl (31.0-35.0); Mean Corpuscular Hemoglobin 24.3 pg (27.0-33.0); Mean Corpuscular Volume 79.7 fL (80.0-98.0); NRBC Abs Auto 0.000 X10*3/uL (0.0-0.012); NRBC Pct Auto 0.0 /100WBC (0.0-0.2); Platelet Count 366 X10*3/uL (160-400); Red Blood Count 4.19 X10*6/uL (4.20-5.50); White Blood Count 7.6 X10*3/uL (4.8-10.8)
[2024-12-02 12:37] LABS: Alanine Aminotransferase 8 U/L (0-31); Albumin Level 4.1 g/dL (3.5-5.0); Alkaline Phosphatase 121 U/L (39-117); Anion Gap 11 (12-20); Aspartate Amino Transferase 20 U/L (5-31); Blood Urea Nitrogen 7 mg/dL (9-16); Calcium 9.5 mg/dL (8.4-10.2); Carbon Dioxide 24 mmol/L (22-29); Chloride 108 mmol/L (96-108); Estimated Glomerular Filt Rate > 60; Potassium 3.7 mmol/L (3.3-5.1); Sodium 139 mmol/L (135-145); Total Protein 7.2 g/dL (6.5-8.0)
[2024-12-11 23:04] LABS: Insulinoma associated 2 aatb <5.4 U/mL (<5.4)
== END 2024-12-02 10:21 | disposition home or self-care (01) ==
LOC: HO.HHCL 10:20
PROVIDERS: Family Medicine; Student in an Organized Health Care Education/Training Program; PCP Family Medicine; Visit Provider Family Medicine
DX: M13.80 Other specified arthritis, unspecified site (principal); E11.65 Type 2 diabetes mellitus with hyperglycemia
CPT/HCPCS: 36415; 80053; 84681; 85025; 85652; 86140; 86341

== ENCOUNTER 2024-12-23 11:26 | Emergency (ER) | payer OTHER, SELFPAY ==
--- OUTSIDE RECORDS SUMMARY | 2024-08-19 06:15 | XMS_ITS ---
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 Name Role Phone Isabel Lewis Primary Care Provider Unavaila ble Clinical, Operations Unavailable Unavailable REASON FOR VISIT MDS assessment Medications Medication SIG (Take, Route, Frequency, Duration) Notes Start Date End Date Status Mounjaro 15 MG/0.5ML as directed Subcutaneous inject on Wednesdays Active Spiriva Respimat 2.5 MCG/ACT 2 puffs Inhalation Once a day Active Ventolin HFA 108 (90 Base) MCG/ACT 1 puff as needed Inhalation every 4 hrs Active Albuterol Sulfate (2.5 MG/3ML) 0.083% 3 mL as needed Inhalation every 6 hrs Active Meclizine HCl 25 MG 1 tablet as needed Orally every 12 hrs Active Baclofen 5 MG 1 tablet as needed Orally Three times a day Active Gabapentin 300 MG 2 capsules Orally Three TImes a Day Active Furosemide 20 MG 1 tablet Orally Once a day Active Spironolactone 25 MG 1 tablet Orally Active Synjardy 12.5-500 MG 1 tablet with meals Orally Twice a day Active Symbicort 160-4.5 MCG/ACT 2 puffs Inhalation Twice a day Active Atorvastatin Calcium 10 MG 1 tablet Orally Once a day Active Trulicity 1.5 MG/0.5ML 0.5 ML Subcutaneous Once Weekly - on Saturday Not-Taking Amitriptyline HCl 10 MG 1 Tablet Orally Twice a Day Active metFORMIN HCl 500 MG 2 tablet with a meal Orally Twice a Day Not-Taking glipiZIDE XL 10 MG 1 tablet with breakfast Orally Once a day Not-Taking ARIPiprazole 20 MG 1 tablet Orally Once a day Active DULoxetine HCl 60 MG 1 capsule Orally Once a day Active QUEtiapine Fumarate 200 MG 1 tablet at bedtime Orally Once a day Active Omeprazole 20 MG 2 capsules Orally Twice a Day Active busPIRone HCl 15 MG 1 tablet Orally Three Times a Day - PRN Active Divalproex Sodium 500 MG 1 tablet Orally Twice a Day Active Calcium Carbonate 1500 (600 Ca) MG 1 tablet with food Orally Twice a day Active Leflunomide 20 MG 1 tablet Orally Once a day Active Magnesium Oxide 400 MG 1 tablet as needed Orally Once a day Active oxyBUTYnin Chloride ER 5 MG 1 tablet Orally Once a day Active Riboflavin 100 MG 1 tablet Orally Once a day Not-Taking Tresiba 100 UNIT/ML 72 units Subcutaneous twice a day Active Vitamin D3 50 MCG (1999 UT) 1 tablet Orally Once a day Active Melatonin 5 MG 1-2 tablets in the evening Orally Once a day Active NovoLOG FlexPen 100 UNIT/ML 55 units Subcutaneous twice a day Active Problems Problem Type SNOMED Code ICD Code Onset Dates Problem Status W/U Status Risk Notes Problem Trichiasis (15022691) 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, unspecified eyelid (H02.053) Active confirmed Problem Type I diabetes mellitus without complication (266373097) Type 1 diabetes mellitus without complications (E10.9) Active confirmed Problem Open angle with borderline findings, low risk, 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) Active confirmed Problem Dizziness and giddiness (741956647) Dizziness and giddiness (R42) Active confirmed Problem Precordial pain (95772791) Precordial pain (R07.2) Active confirmed Problem Tachycardia (5418354) Tachycardia, unspecified (R00.0) Active confirmed Problem Rheumatoid arthritis (25639892) Rheumatoid arthritis, unspecified (M06.9) Active confirmed Problem Dissection of aorta (116673031) Dissection of unspecified site of aorta (I71.00) Active confirmed Problem Chest pain (12342152) Chest pain, unspecified (R07.9) Active confirmed Problem Heart failure (30124901) Heart failure, unspecified (I50.9) Active confirmed Problem Long QT syndrome (6272033) Long QT syndrome (I45.81) Active confirmed Problem Electrocardiogram abnormal (809231267) Abnormal electrocardiogram [ECG] [EKG] (R94.31) Active confirmed Problem Urinary incontinence (217127436) Unspecified urinary incontinence (R32) Active confirmed Problem Weakness (81195028) Weakness (R53.1) Active con firmed Problem Overweight (023223938) Overweight (E66.3) Active confirmed Encounters Encounter Location Date Provider Diagnosis [facility] ([facility]) [address] [place] [id number] 08/19/2024 Operations Clinical COPD (chronic obstructive pulmonary disease) [...] ; Gastroesophageal reflux disease without esophagitis K21.9 ; Bipolar affective disorder, remission status unspecified F31.9 ; Overweight E66.3 ; Weakness R53.1 ; Unspecified urinary incontinence R32 ; Abnormal electrocardiogram [ECG] [EKG] R94.31 ; Long QT syndrome I45.81 ; Heart failure, unspecified I50.9 ; Chest pain, unspecified R07.9 ; Dissection of unspecified site of aorta I71.00 ; Rheumatoid arthritis, unspecified M06.9 ; Tachycardia, unspecified R00.0 ; Precordial pain R07.2 ; Dizziness and giddiness R42 ; Open angle with borderline findings, low risk, bilateral H40.013 ; Type 1 diabetes mellitus without complications E10.9 and 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, unspecified eyelid H02.053 Assessments Encounter Date Diagnosis (ICD Code) Assessment Notes Treatment Notes Treatment Clinical Notes Section Notes 08/19/2024 COPD (chronic obstructive pulmonary disease) (ICD-10 - J44.9) 08/19/2024 Asthma (ICD-10 - J45.909) 08/19/2024 Hypertension (ICD-10 - I10) 08/19/2024 Type 2 diabetes mellitus (ICD-10 - E11.9) 08/19/2024 Migraines (ICD-10 - G43.909) 08/19/2024 Dizziness (ICD-10 - R42) 08/19/2024 Rheumatoid arthritis (ICD-10 - M06.9) 08/19/2024 Osteoarthritis (ICD-10 - M19.90) 08/19/2024 Fibromyalgia (ICD-10 - M79.7) 08/19/2024 Lumbago with sciatica, left side (ICD-10 - M54.42) 08/19/2024 Arthralgia (ICD-10 - M25.50) 08/19/2024 Sleep apnea (ICD-10 - G47.30) 08/19/2024 Cognitive impairment (ICD-10 - R41.89) 08/19/2024 Memory loss (ICD-10 - R41.3) 08/19/2024 Other malaise (ICD-1 0 - R53.81) 08/19/2024 Anxiety disorder (ICD-10 - F41.9) 08/19/2024 Post traumatic stres s disorder (ICD-10 - F43.10) 08/19/2024 Major depression, recurrent (ICD-10 - F33.9) 08/19/2024 Severe persistent asthma, unspecified whether complicated (ICD-10 - J45.50) 08/19/2024 Fatty liver (ICD-10 - K76.0) 08/19/2024 Urinary incontinence , unspecified type (ICD-10 - R32) 08/19/2024 COVID-19 (ICD-10 - U07.1) 08/19/2024 Other chronic pain (ICD-10 - G89.29) 08/19/2024 Age-related nuclear cataract, bilateral (ICD-10 - H25.13) 08/19/2024 Gastroesophageal reflux disease without esophagitis (ICD-10 - K21.9) 08/19/2024 Bipolar affective disorder, remission status unspecified (ICD-10 - F31.9) 08/19/2024 Overweight (ICD-10 - E66.3) 08/19/2024 Weakness (ICD-10 - R53.1) 08/19/2024 Unspecified urinary incontinence (ICD-10 - R32) 08/19/2024 Abnormal electrocardiogram [ECG] [EKG] (ICD-10 - R94.31) 08/19/2024 Long QT syndrome (ICD-10 - I45.81) 08/19/2024 Heart failure, unspecified (ICD-10 - I50.9) 08/19/2024 Chest pain, unspecified (ICD-10 - R07.9) 08/19/2024 Dissection of unspecified site of aorta (ICD-10 - I71.00) 08/19/2024 Rheumatoid arthritis , unspecified (ICD-10 - M06.9) 08/19/2024 Tachycardia, unspecified (ICD-10 - R00.0) 08/19/2024 Precordial pain (ICD-10 - R07.2) 08/19/2024 Dizziness and giddiness (ICD-10 - R42) 08/19/2024 Open angle with borderline findings, low risk, bilateral (ICD-10 - H40.013) 08/19/2024 Type 1 diabetes mellitus without complications (ICD-10 - E10.9) 08/19/2024 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, unspecified eyelid (ICD-10 - H02.053) Plan Of Treatment No Information Progress Notes * GINI MCARTHURDOB:1970 (54 yo F)Acc No.[id number]:08/19/2024 Patient: GINI ROGERS External Provider: Yani sanford Clinical Resource:Margie Moreno :1970 A ge:54 Y S ex:Female Date:08/19/2024 Address:[address] [place], [place] [id number] Pcp:Isabel Lewis Patient's Default Facility:[facility] Subjective: * Chief Complaints: * M DS assessment * Medical History: * Surgical History: * Hospitalization/Major Diagno stic Procedure: * Medications: T akingSynjardy 12.5-500 MG Tablet 1 tablet with meals Orally Twice a day Spironolactone 25 MG Tablet 1 tablet Orally Meclizine HCl 25 MG Tablet 1 tablet as needed Orally every 12 hrs Albuterol Sulfate (2.5 MG/3ML) 0.083% Nebulization Solution 3 mL as needed Inhalation every 6 hrs Ventolin HFA 108 (90 Base) MCG/ACT Aerosol Solution 1 puff as needed Inhalation every 4 hrs Spiriva Respimat 2.5 MCG/ACT Aerosol Solution 2 puffs Inhalation Once a day Mounjaro 15 MG/0.5ML Solution Auto-injector as directed Subcutaneous , Notes to Pharmacist: inject on WednesdaysNovoLOG FlexPen 100 UNIT/ML Solution Pen-injector 55 units Subcutaneous twice a day Tresiba 100 UNIT/ML Solution 72 units Subcutaneous twice a day oxyBUTYnin Chloride ER 5 MG Tablet Extended Release 24 Hour 1 tablet Orally Once a day Melatonin 5 MG Tablet 1-2 tablets in the evening Orally Once a day Vitamin D3 50 MCG (2000 UT) Tablet 1 tablet Orally Once a day Magnesium Oxide 400 MG Tablet 1 tablet as needed Orally Once a day Leflunomide 20 MG Tablet 1 tablet Orally Once a day Calcium Carbonate 1500 (600 Ca) MG Tablet 1 tablet with food Orally Twice a day Divalproex Sodium 500 MG Tablet Delayed Release 1 tablet Orally Twice a Day busPIRone HCl 15 MG Tablet 1 tablet Orally Three Times a Day - PRN Omeprazole 20 MG Capsule Delayed Release 2 capsules Orally Twice a Day QUEtiapine Fumarate 200 MG Tablet 1 tablet at bedtime Orally Once a day DULoxetine HCl 60 MG Capsule Delayed Release Particles 1 capsule Orally Once a day ARIPiprazole 20 MG Tablet 1 tablet Orally Once a day Symbicort 160-4.5 MCG/ACT Aerosol 2 puffs Inhalation Twice a day Amitriptyline HCl 10 MG Tablet 1 Tablet Orally Twice a Day Atorvastatin Calcium 10 MG Tablet 1 tablet Orally Once a day Furosemide 20 MG Tablet 1 tablet Orally Once a day Gabapentin 300 MG Capsule 2 capsules Orally Three TImes a Day Baclofen 5 MG Tablet 1 tablet as needed Orally Three times a day Taking Synjardy 12.5-500 MG Tablet 1 tablet with meals Orally Twice a day Taking Spironolactone 25 MG Tablet 1 tablet Orally Taking Meclizine HCl 25 MG Tablet 1 tablet as needed Orally every 12 hrs Taking Albuterol Sulfate (2.5 MG/3ML) 0.083% Nebulization Solution 3 mL as needed Inhalation every 6 hrs Taking Ventolin HFA 108 (90 Base) MCG/ACT Aerosol Solution 1 puff as needed Inhalation every 4 hrs Taking Spiriva Respimat 2.5 MCG/ACT Aerosol Solution 2 puffs Inhalation Once a day Taking Mounjaro 15 MG/0.5ML Solution Auto-injector as directed Subcutaneous , Notes to Pharmacist: inject on WednesdaysTaking NovoLOG FlexPen 100 UNIT/ML Solution Pen-injector 55 units Subcutaneous twice a day Taking Tresiba 100 UNIT/ML Solution 72 units Subcutaneous twice a day Taking oxyBUTYnin Chloride ER 5 MG Tablet Extended Release 24 Hour 1 tablet Orally Once a day Taking Melatonin 5 MG Tablet 1-2 tablets in the evening Orally Once a day Taking Vitamin D3 50 MCG (2000 UT) Tablet 1 tablet Orally Once a day Taking Magnesium Oxide 400 MG Tablet 1 tablet as needed Orally Once a day Taking Leflunomide 20 MG Tablet 1 tablet Orally Once a day Taking Calcium Carbonate 1500 (600 Ca) MG Tablet 1 tablet with food Orally Twice a day Taking Divalproex Sodium 500 MG Tablet Delayed Release 1 tablet Orally Twice a Day Taking busPIRone HCl 15 MG Tablet 1 tablet Orally Three Times a Day - PRN Taking Omeprazole 20 MG Capsule Delayed Release 2 capsules Orally Twice a Day Taking QUEtiapine Fumarate 200 MG Tablet 1 tablet at bedtime Orally Once a day Taking DULoxetine HCl 60 MG Capsule Delayed Release Particles 1 capsule Orally Once a day Taking ARIPiprazole 20 MG Tablet 1 tablet Orally Once a day Taking Symbicort 160-4.5 MCG/ACT Aerosol 2 puffs Inhalation Twice a day Taking Amitriptyline HCl 10 MG Tablet 1 Tablet Orally Twice a Day Taking Atorvastatin Calcium 10 MG Tablet 1 tablet Orally Once a day Taking Furosemide 20 MG Tablet 1 tablet Orally Once a day Taking Gabapentin 300 MG Capsule 2 capsules Orally Three TImes a Day Taking Baclofen 5 MG Tablet 1 tablet as needed Orally Three times a day Not-TakingRiboflavin 100 MG Tablet 1 tablet Orally Once a day glipiZIDE XL 10 MG Tablet Extended Release 24 Hour 1 tablet with breakfast Orally Once a day metFORMIN HCl 500 MG Tablet 2 tablet with a meal Orally Twice a Day Trulicity 1.5 MG/0.5ML Solution Pen-injector 0.5 ML Subcutaneous Once Weekly - on Saturday Not-Taking Riboflavin 100 MG Tablet 1 tablet Orally Once a day Not-Taking glipiZIDE XL 10 MG Tablet Extended Release 24 Hour 1 tablet with breakfast Orally Once a day Not-Taking metFORMIN HCl 500 MG Tablet 2 tablet with a meal Orally Twice a Day Not-Taking Trulicity 1.5 MG/0.5ML Solution Pen-injector 0.5 ML Subcutaneous Once Weekly - on Saturday Objective: * Vitals: Assessment: * Assessment: 1. C OPD (chronic obstructive pulmonary disease) - J44.9 (Primary) 2 . A sthma - J45.909 3 . H ypertension - I10 4 . T ype 2 diabetes mellitus - E11.9 5 . M igraines - G43.909 6 . D izziness - R42 7 . R heumatoid arthritis - M06.9 8 . O steoarthritis - M19.90 9 . F ibromyalgia - M79.7 1 0. L umbago with sciatica, left side - M54.42 1 1. A rthralgia - M25.50 1 2. S leep apnea - G47.30 1 3. C ognitive impairment - R41.89 1 4. M anay loss - R41.3 1 5. O ther malaise - R53.81 1 6. A nxiety disorder - F41.9 1 7. P ost traumatic stress disorder - F43.10 1 8.?Major depression, recurrent - F33.9 1 9. S evere persistent asthma, unspecified whether complicated - J45.50 2 0. F atty liver - K76.0 2 1. U rinary incontinence, unspecified type - R32 2 2. C OVID-19 - U07.1 ? 2 3. O ther chronic pain - G89.29 2 4. A ge-related nuclear cataract, bilateral - H25.13 2 5. G astroesophageal reflux disease without esophagitis - K21.9 2 6. B ipolar affective disorder, remission status unspecified - F31.9? 27. O verweight - E66.3 2 8. W eakness - R53.1 29. U nspecified urinary incontinence - R32 3 0. A bnormal electrocardiogram [ECG] [EKG] - R94.31 3 1. L aleja QT syndrome - I45.81 3 2.?Heart failure, unspecified - I50.9 3 3. C hest pain, unspecified - R07.9 34. D issection of unspecified site of aorta - I71.00 3 5. R heumatoid arthritis, unspecified - M06.9 3 6. T achycardia, unspecified - R00.0? 37. P recordial pain - R07.2 3 8. D izziness and giddiness - R42 3 9. O pen angle with borderline findings, low risk, bilateral - H40.013? 40. T ype 1 diabetes mellitus without complications - E10.9 4 1. T richiasis 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 right eye, unspecified eyelid - H02.053 Plan: * Treatment: * Procedure Codes: Care Plan: * Problems: * * Sign off status: Completed true * Provider: Yani sanford Clinical Date: 0 08/19/2024 Generated for Abebe brandt/Vasquez/Jessyitting on: 0 12/23/2024 12:41 PM EDT
--- NOTE | ~2024-12-23 | XR_ITS ---
EXAMINATION: XR RIBS, LEFT CLINICAL INFORMATION: severe pain COMPARISON: To 325, and dating back to 07/20/2022. TECHNIQUE: PA chest, and 3 views of the left ribs were obtained. FINDINGS: The cardiac, hilar, and mediastinal contours are normal. Prominence and haziness of the interstitial markings of the lungs, similar to prior exams. No effusions or pneumothorax. Dedicated rib views demonstrate no discrete fracture or focal rib abnormality. There are cholecystectomy clips present. XR/XR ribs LT min 3V w CXR1V IMPRESSION: 1. Mild haziness and prominence of the background interstitial markings of the lungs, possibly representing mild interstitial edema in the appropriate clinical setting. This appears similar to 07/06/2024. 2. No definite acute finding of the ribs. 3. No pneumothorax or effusion. Electronically signed by: Yovani Bañuelos MD 12/23/2024 11:59 AM EDT
[2024-12-23 11:30] VITALS: BP 136/83; PULSE 84; RESP 18; TEMP 36.3; O2SAT 96; BMI 27.9
--- NOTE | 2024-12-23 11:31 | ED.GENADULT ---
HPI - General Adult General Chief complaint: General Medical Stated complaint: ABD pain, Rib Time Seen by Provider: 12/23/24 11:49 Source: patient Mode of arrival: ambulatory Limitations: no limitations History of Present Illness ED Provider: Siobhan Stuart PA-C HPI narrative: Patient is a 54 year old assigned female at with a history of RA presenting to the emergency department today with left rib pain. Patient states that she bent over to grab something from under a bed and began to have left rib pain. Patient denies any fall, head strike, or loss of consciousness with the incident. Patient denies any dizziness, lightheadedness, abdominal pain, nausea, vomiting, fever, chills, blurry vision, double vision, loss of vision, chest pain, difficulty breathing, shortness of breath, back pain, night sweats, pain with urination, increased urinary frequency, increased urinary urgency, blood in her urine or stool, syncope or a near syncopal episode, bowel incontinence, bladder incontinence, or any other complaints at this time. Relieving factors: none Exacerbating factors: movement Associated symptoms: denies other symptoms Treatments prior to arrival: none Related Data Home Medications ?Medication ?Instructions ?Recorded ?Confirmed atorvastatin 10 mg tablet (Lipitor) 10 mg PO BEDTIME 05/19/20 07/06/24 duloxetine 60 mg capsule,delayed 60 mg PO DAILY 05/01/21 07/06/24 release baclofen 5 mg tablet 5 mg PO TID PRN Muscle Spasm 09/06/21 07/06/24 amitriptyline 10 mg tablet 2 tab PO BEDTIME 10/09/21 07/06/24 calcium 600 mg (as 1 tab PO BID 10/09/21 07/06/24 carbonate)-vitamin D3 10 mcg (400 unit) tablet oxybutynin chloride 5 mg 1 tab PO BEDTIME 10/09/21 07/06/24 tablet,extended release 24 hr pen needle, diabetic 32 gauge x #50 ea 11/06/21 06/26/23 (UltiCare Pen Needle) aripiprazole 20 mg tablet 20 mg PO DAILY 03/01/23 07/06/24 budesonide-formoterol HFA 160 2 puff inhalation BID 03/01/23 07/06/24 mcg-4.5 mcg/actuation aerosol inhaler (Symbicort) buspirone 15 mg tablet 15 mg PO TID 03/01/23 07/06/24 magnesium oxide 400 mg (241.3 mg 400 mg PO DAILY 03/01/23 07/06/24 magnesium) tablet melatonin 5 mg tablet 10 mg PO BEDTIME 03/01/23 07/06/24 multivitamin-iron sulfate 15 1 tab PO DAILY 03/01/23 07/06/24 mg-folic acid 400 mcg tablet (Tab-A-Manjeet Multivitamin w-iron) gabapentin 300 mg capsule 600 mg PO TID 03/04/23 07/06/24 albuterol sulfate 2.5 mg/3 mL 2.5 mg inhalation QID PRN 04/30/23 07/06/24 (0.083 %) solution for nebulization Shortness Of Breath Or Wheezing albuterol sulfate 90 mcg/actuation 2 inh inhalation Q4H PRN Shortness 04/30/23 07/06/24 aerosol inhaler (Ventolin HFA) Of Breath Or Wheezing divalproex 500 mg tablet,extended 500 mg PO BID 04/30/23 07/06/24 release 24 hr meclizine 25 mg tablet 25 mg PO BID PRN Motion 04/30/23 07/06/24 Sickness/Vertigo omeprazole 20 mg capsule,delayed 40 mg PO BID@0630,1630 09/30/23 07/06/24 release riboflavin (vitamin B2) 100 mg 200 mg PO BID 09/30/23 07/06/24 tablet tiotropium bromide 2.5 2 puff inhalation DAILY 11/29/23 07/06/24 mcg/actuation mist for inhalation (Spiriva Respimat) flash glucose sensor (FreeStyle #1 ea 01/20/24 Jt 2 Sensor kit) polyethylene glycol 3350 17 17 g PO DAILY PRN Constipation 01/20/24 07/06/24 gram/dose oral powder quetiapine 200 mg tablet 200 mg PO BEDTIME 01/20/24 07/06/24 empagliflozin 12.5 mg-metformin 1 tab PO BID 06/18/24 07/06/24 1,000 mg tablet (Synjardy) insulin aspart U-100 100 unit/mL See Protocol subcut BIDAC 06/18/24 07/06/24 (3 mL) subcutaneous pen (Novolog FlexPen U-100 Insulin aspart) tirzepatide 12.5 mg/0.5 mL 12.5 mg subcut WE 06/18/24 07/06/24 subcutaneous pen injector (Mounjaro) tocilizumab 162 mg/0.9 mL mg subcut 06/18/24 subcutaneous pen injector (Actbatoolra ACTPen) Previous Rx's ?Medication ?Instructions ?Recorded leg brace #1 ea 03/04/23 insulin degludec 200 unit/mL (3 40 unit (0.2 mL) subcut DAILY #9 mL 07/09/24 mL) subcutaneous pen (Tresiba FlexTouch U-200 insulin) nicotine 14 mg/24 hr daily 14 mg transdermal DAILY #30 ea 07/09/24 transdermal patch spironolactone 25 mg tablet 25 mg PO DAILY #30 tabs 07/09/24 Allergies Allergy/AdvReac Type Severity Reaction Status Date / Time sumatriptan (From IMITREX) Allergy Severe SYNCOPE Verified 12/23/24 11:34 Penicillins (PENICILLINS) Allergy Intermediate SHORTNESS Verified 12/23/24 11:34 OF BREATH penicillin V Allergy Unknown swelling, Verified 12/23/24 11:34 rash, pruritis topiramate (From TOPAMAX) AdvReac Severe OVERDOSED Verified 12/23/24 11:34 Review of Systems Constitutional: Constitutional: Reports no additional constitutional complaints, Denies chills, Denies fever(s) and Denies night sweats Eyes: Eyes: Reports no additional eye complaints, Denies blurry vision, Denies change in vision, Denies diplopia, Denies eye discharge, Denies loss of vision and Denies eye pain ENT: Denies dizziness Cardiovascular: Cardiovascular: Reports no additional cardiovascular complaints, Denies chest pain, Denies lightheadedness, Denies Loss of Consciousness and Denies dyspnea Respiratory: Respiratory: Reports no additional respiratory complaints and Denies dyspnea Gastrointestinal: Gastrointestinal: Reports no additional gastrointestinal complaints, Denies abdominal pain, Denies melena, Denies hematochezia, Denies change in bowel habits and Denies change in stool character Genitourinary: Genitourinary: Denies hematuria, Denies urinary frequency, Denies dysuria, Denies urinary incontinence, Denies urinary hesitancy and Denies urinary urgency Musculoskeletal: Musculoskeletal: Reports no additional musculoskeletal complaints, Denies numbness and Denies tingling Comments: left rib pain Neurologic: Denies dizziness, Denies loss of vision, Denies numbness and Denies tingling Psychiatric: Psychiatric: Reports no additional psychiatric complaints Endocrine: Endocrine: Reports no additional endocrine complaints Hematologic/Lymphatic: Hematologic/Lymphatic: Reports no additional hematologic/lymphatic complaints Allergic/Immunologic: Allergic/Immunologic: Reports no additional allergic/immunologic complaints [facility] Past Medical History Attestation statement: The following information was validated with the patient. Source: old records reviewed and nursing notes reviewed Medical History Osteoarthritis (arthritis due to wear and tear of joints) Major depressive disorder PTSD (post-traumatic stress disorder) CAP (community acquired pneumonia) Fibromyalgia Asthma Chronic mixed headache syndrome Obstructive sleep apnea Diabetes Bipolar disorder Surgical History Hx of colonoscopy Hx of cholecystectomy H/O shoulder surgery Family History Family History Mother Arthritis Asthma Diabetes Social History Social History Household Members: Spouse Housing: Apartment Do you presently have visiting nurse or other home services: Yes Alcohol intake: former Patient Tobacco Use Status: Current everyday Tobacco user Tobacco use type: Cigarette Cigarettes Per Day: 12 Years Smoked: 45 Advance Directives: No Advance Directives Information Provided: Yes Do you have a plan to hurt others: No Plan service: No Physical Exam ED Vital Signs: Vital Signs - 24 hr 12/23/24 11:30 Temperature 97.4 F Pulse Rate 84 Respiratory Rate 18 Blood Pressure 136/83 Pulse Oximetry 96 Oxygen Delivery Method Room Air BMI result Body Mass Index 27.9 Const General: cooperative, no acute distress, alert and awake Nutritional Appearance: well nourished Orientation/consciousness: patient oriented x3 HENMT Head: Yes normal to inspection and Yes atraumatic Ears: hearing grossly normal bilaterally and external ears normal General nose exam: Normal external nose present, no nasal discharge noted and no epistaxis Face and sinus: Yes normal facial exam, No abrasion and No laceration Mouth: Normal oral and palatal mucosa present, no drooling and no muffled voice Eyes General: appearance normal, both eyes and all related structures Periorbital: periorbital findings normal Eyelids: Yes eyelids normal Conjunctivae: conjunctivae normal Pupils: Equal, round and reactive pupils present EOM: EOMs intact bilaterally Neck Neck: Yes normal visual inspection, Yes full ROM and Yes no lymphadenopathy Resp Effort & Inspection: normal respiratory effort and able to speak in complete sentences Neuro General: patient oriented x3, moves all extremities and CN's II-XI intact bilaterally Cranial nerves: Yes Equal, round and reactive pupils present Cognition (Neuro): normal cognition Extrem General: Yes normal to inspection, Yes full ROM and Yes capillary refill normal Psych Appearance: grossly normal Mental Status: mental status grossly normal Affect: normal affect Attitude: cooperative Thought process: Normal thought process present Thought content: Normal thought content present Insight: Good insight present (Psych) Course Course Course Narrative: This is a rapid medical exam performed by Sanya Miles NP: Additional HPI, ROS, PE not included below will be deferred to primary provider. Patient is a 54-year-old female presenting to the ED with complaint of left sided rib pain since Saturday. Family states that patient was reaching under a bed, and suddenly began screaming, c/o L rib pain. Plan: imaging Medical Decision Making Medical Decision Making MDM Narrative: Patient is a 54 year old assigned female at with a history of RA presenting to the emergency department today with left rib pain. Patient's physical exam was unremarkable. Patient's left ribs x-ray showed no acute process. I explained my physical exam findings as well as all test results to the patient. Patient's clinical presentation is most consistent with left rib contusion. Patient used an incentive spirometer without issue while in the department. I answered all questions asked by the patient. I stressed the importance of the patient taking her medication as directed (either prescribed or as the over the counter packaging recommends). I stressed the importance of the patient following up with her primary care provider. I stressed the importance of the patient returning to the emergency department immediately if her symptoms were to worsen or if she were to develop any dizziness, shortness of breath, difficulty breathing, chest pain, blurry vision, loss of vision, nausea, vomiting, abdominal pain, fever, chills, back pain, or any other complaints. Patient verbalized agreement and understanding with this treatment plan and discharge. Differential Diagnosis Differential Diagnoses: The differential diagnosis associated with the presentation includes Left rib contusion Left rib fracture Left chest wall pain Admission/Observation Consideration of admission/observation: Escalation of care including admission/observation considered Patient would have been admitted to the hospital had her work up had any findings where hospital admission was appropriate and her clinical presentation warranted hospital admission. Independent Interpretation I performed an independent interpretation of an: Plain X-Ray Interpretation: My interpretation is in agreement with the radiologist's impression of this imaging study. EXAMINATION: XR RIBS, LEFT CLINICAL INFORMATION: severe pain COMPARISON: To 325, and dating back to 07/20/2022. TECHNIQUE: PA chest, and 3 views of the left ribs were obtained. FINDINGS: The cardiac, hilar, and mediastinal contours are normal. Prominence and haziness of the interstitial markings of the lungs, similar to prior exams. No effusions or pneumothorax. Dedicated rib views demonstrate no discrete fracture or focal rib abnormality. There are cholecystectomy clips present. XR/XR ribs LT min 3V w CXR1V IMPRESSION: 1. Mild haziness and prominence of the background interstitial markings of the lungs, possibly representing mild interstitial edema in the appropriate clinical setting. This appears similar to 07/06/2024. 2. No definite acute finding of the ribs. 3. No pneumothorax or effusion. Electronically signed by: Yovani Bañuelos MD 12/23/2024 11:59 AM EDT RP Dictated By: Yovani Bañuelos MD Signed By: Electronically signed by Yovani Bañuelos MD 12/23/24 1159 Radiology Impression Discussion of test interpretation with radiology: I have reviewed the radiologist's reading. Tests considered The following testing was considered but not selected: I considered obtaining an EKG, CBC, CMP, and troponin however, the patient's current clinical presentation did not warrant this. I discussed this with the patient who verbalized understanding and agreement. Discharge Plan Discharge Clinical Impression: Contusion of rib Qualifiers: Encounter type: initial encounter Qualified Code(s): S29.8XXA - Other specified injuries of thorax, initial encounter Patient Disposition: Home, Self-Care Instructions: Costochondritis (DC) Additional Instructions: It is crucial for you to use your incentive spirometer every hour for at least 10 minutes to avoid pneumonia. Es fundamental que utilice cordova espir?metro incentivador cada hora derik al menos 10 minutos para evitar la neumon?a. Follow up with your primary care provider. Return to the emergency department immediately if your symptoms worsen or if you develop any dizziness, shortness of breath, difficulty breathing, chest pain, blurry vision, loss of vision, nausea, vomiting, abdominal pain, fever, chills, back pain, or any other complaints. Vernell?seguimiento?con cordova m?dico de atenci?n primaria. Acuda inmediatamente al servicio de urgencias si berlin s?ntomas empeoran o si presenta falta de aliento, dificultad para respirar, dolor tor?cico, mareos, aturdimiento, dolor de espalda, dolor abdominal, fiebre, escalofr?os o cualquier otro s?ntoma. Please see the information below about our Patient Portal. If you are not yet enrolled in the [facility] Patient Portal, you will receive an enrollment email invitation following your visit to any [facility] care setting. You may also self-enroll in the Patient Portal by visiting our website: [email or web address] The following information is required to access the Patient Portal: - Your [facility] Medical Record Number - Your personal home email address (must match what is in your electronic medical record, Registration staff can assist with this) - Name - Date of Capabilities of the Patient Portal: - Message some providers - View upcoming appointments - Access your health summary, medical history, and visit history - View current conditions and allergies - View procedure and lab results - View your medications, including guidelines, side effects, and precautions - Complete pre-appointment questionnaires requested by your provider - Ready summary reports of your office visits and procedures To access the Patient Portal Mobile [employer], follow these directions: - Search [employer] in the K[employer]um Store or Google Cel-[employer] by Nextivity Store - Download the K[employer]um - Search for [facility] - Enter your login/password Portal del paciente Si usted no esta inscrito en el portal de pacientes de [facility] y [facility], recibira rishabh invitacion de inscripcion despues de cordova visita al [facility] o al [facility] via correo electronico. Tambien puede inscribirse voluntariamente en el portal de pacientes visitando nuestra pagina web: [email or web address] La siguiente informacion sera requerida para acceder al portal: - Cordova jesse de historia medica de [facility] - Cordova direccion de correo electronico personal - Nombre - Fecha de nacimiento Capacidades: Las siguientes capacidades estan disponibles en el portal de pacientes: - Enviar mensajes a algunos doctores - Verificar proximas citas - Acceso a cordova historial de bill, registro medico e historial de visitas - Chris las condiciones actuales y alergias chris procedimientos y resultados del laboratorio - Chris berlin medicamentos, incluyendo las pautas - Efectos secundarios y precauciones - Completar o llenar formularios / cuestionarios de - Citas solicitadas por cordova doctor - Leer los resumenes de reportes medicos de berlin visitas y procedimientos [place] acceder a la aplicacion movil: - Busque dakickealth en la K[employer] Store o Google Cel-Fi by Nextivity Store - Descargue la aplicacion - [facility] - Ingrese cordova nombre de usuario / Contrasena Prescriptions: No Action amitriptyline 10 mg tablet 2 tab PO BEDTIME oxybutynin chloride 5 mg tablet extended release 24 hr 1 tab PO BEDTIME calcium carbonate-vitamin D3 600 mg-10 mcg (400 unit) tablet 1 tab PO BID nicotine 14 mg/24 hr Patch 24 Hour 14 mg transdermal DAILY Qty: 30 0RF spironolactone 25 mg Tablet 25 mg PO DAILY Qty: 30 0RF Protocol: Hold for SBP< HOLD for SBP < : 90 insulin degludec [Tresiba FlexTouch U-200] 200 unit/mL (3 mL) insulin pen 40 unit subcut DAILY Qty: 9 0RF insulin aspart U-100 [Novolog FlexPen U-100 Insulin] 100 unit/mL (3 mL) insulin pen See Protocol subcut BIDAC Protocol: Insulin Correction Scale Less than or equal to 110 ---- Give (units): 0 111 to 150 Give (units): 0 151 to 200 Give (units): 2 201 to 250 Give (units): 4 251 to 300 Give (units): 6 301 to 350 Give (units): 8 Greater than 350 Give (units): 10 Call MD if Blood Glucose > : 350 Synjardy 12.5-1,000 mg tablet 1 tab PO BID Actemra ACTPen 162 mg/0.9 mL pen injector SUBCUT Mounjaro 12.5 mg/0.5 mL pen injector 12.5 mg subcut WE atorvastatin [Lipitor] 10 mg tablet 10 mg PO BEDTIME duloxetine 60 mg capsule,delayed release(DR/EC) 60 mg PO DAILY riboflavin (vitamin B2) 100 mg tablet 200 mg PO BID gabapentin 300 mg capsule 600 mg PO TID baclofen 5 mg tablet 5 mg PO TID PRN (Reason: Muscle Spasm) (DME) pen needle, diabetic [UltiCare Pen Needle] 32 gauge x 5/32 needle See Rx Instructions .ROUTE DIRECTED Qty: 50 Rx Instructions: As directed melatonin 5 mg tablet 10 mg PO BEDTIME Tab-A-Manjeet Multivitamin w-iron 15 mg iron- 400 mcg tablet 1 tab PO DAILY budesonide-formoterol [Symbicort] 160-4.5 mcg/actuation HFA aerosol inhaler 2 puff inhalation BID magnesium oxide 400 mg (241.3 mg magnesium) tablet 400 mg PO DAILY aripiprazole 20 mg tablet 20 mg PO DAILY buspirone 15 mg tablet 15 mg PO TID (DME) leg brace Misc See Rx Instructions .Route Qty: 1 0RF Rx Instructions: As directed :Use during day when active. DO not wear to bed albuterol sulfate [Ventolin HFA] 90 mcg/actuation HFA aerosol inhaler 2 inh inhalation Q4H PRN (Reason: Shortness Of Breath Or Wheezing) meclizine 25 mg tablet 25 mg PO BID PRN (Reason: Motion Sickness/Vertigo) divalproex 500 mg tablet extended release 24 hr 500 mg PO BID albuterol sulfate 2.5 mg /3 mL (0.083 %) solution for nebulization 2.5 mg inhalation QID PRN (Reason: Shortness Of Breath Or Wheezing) omeprazole 20 mg capsule,delayed release(DR/EC) 40 mg PO BID@0630,1630 (DME) Tiragiu Jt 2 Sensor Kit See Rx Instructions .ROUTE .MEDSUPPLY Qty: 1 Rx Instructions: As directed quetiapine 200 mg tablet 200 mg PO BEDTIME polyethylene glycol 3350 17 gram/dose powder 17 g PO DAILY PRN (Reason: Constipation) Spiriva Respimat 2.5 mcg/actuation mist 2 puff inhalation DAILY Referrals: Isabel Lewis DO [Primary Care Provider, Internal Medicine] Print Language: Bolivian
--- OUTSIDE RECORDS SUMMARY | 2024-12-23 12:41 | XMS_ITS | Data Portability ---
Author Organization [employer], [facility] Address [address] [place] [address] Care Team Providers Care Automotive Parts Clerk Name Role Phone [facility] Referring Provider HIM [facility] OTHER [facility] OTHER Assessment Encounter Date Assessment Date Assessment LastModified by Organization Details LastModified Time 04/03/2023 04/03/2023 I provided real -time medical direction via phone for this encounter, and was available for additional phone based assistance as needed. I have reviewed and agree with the Assessment and Plan as documented by the Machine Ii Engraver. Patient given the opportunity to ask questions via american sign language interpreter Advised if develops CP/severe SOB/turning blue/uncontrolle d n/v/d or black/bloody emesis or stool/ AMS/ syncope/ hi fever unresponsive to APAP to call 911- verbalized understanding of instructions [email or web address] Not available 04/03/2023 14:29:20 10/02/2023 10/02/2023 I provided real -time medical direction via phone for this encounter and was available for additional phone-based assistance as needed. I have reviewed and agree with the Assessment and Plan as documented by the Machine Ii Engraver. Patient given the opportunity to ask questions. [...] numbness. This service was then called. Per fur plucker on the scene, no focal deficits with VSS and BG of 220. FAST exam is negative per fur plucker and patient does have sensation of the [...] IA, respiratory specimen 2022 023 [email or web address] 0 [facility], [address] [place] [address], [address] [place] [address] 3 14:32:45 BMP, serum or plasma [email or web address] [facility], [address] [place] [address], [phone] 3 14:32:40 urinalysis, dipstick 2022 023 [email or web address] 0 Main - [facility], [address] [place] [address], [phone] 3 14:32:43 BMP, serum or plasma 2022 023 [email or web address] [facility], [address] [place] [address], [phone] 3 17:24:50 glucose, fingerstick , blood [address] [facility], [address] [place] [address], [phone] 3 08:32:02 Referral None recorded. Procedures None recorded. Surgeries None recorded. Imaging None recorded. Medication Orders potassium chloride 20 mEq oral packet 2022 023 [email or web address] 0 Not available 3 14:32:40 potassium chloride ER 20 mEq tablet,exte nded release 2022 023 [facility], [address] [place] [address], [id number], 14:30:28 lactated Ringers intravenous solution 2022 023 [...] BUN 10 Not Available Main - Ins [address], [address] [place] [address] 04/01/2023 16:52:56 04/01/2004/01/2023 BMP, serum or plasm a Ca 1.06 Not Available Main - Ins [address], [address] [place] [address] 04/01/2023 16:52:56 04/01/2004/01/2023 BMP, serum or plasm a CI- 89 Not Available Main - Ins [address], [address] [place] [address] 04/01/2023 16:52:56 04/01/2004/01/2023 BMP, serum or plasm a CRE 0.8 Not Available Main - Ins [address], [address] [place] [address] 04/01/2023 16:52:56 04/01/2004/01/2023 BMP, serum or plasm a GLU 700 Not Available Main - Ins [address], [address] [place] [address] 04/01/2023 16:52:56 04/01/2004/01/2023 BMP, serum or plasm a K+ 3.4 Not Available Main - Ins [address], [address] [place] [address] 04/01/2023 16:52:56 04/01/2004/01/2023 BMP, serum or plasm a Na+ 128 Not Available Main - Ins [address], [address] [place] [address] 04/01/2023 16:52:56 04/01/2004/01/2023 BMP, serum or plasm a tCO2 23 Not Available Main - Ins [address], [address] 04/01/2023 16:52:56 04/03/20 23 04/03/2023 BMP, serum or plasm a BUN 4 Not Available Main - Ins [address], [address] [place] [address] 04/03/2023 14:21:27 04/03/20 23 04/03/2023 BMP, serum or plasm a Ca Ionize d calciu m 1.2 Not Available Main - [address], [address] [place] [address] 04/03/2023 14:21:27 04/03/20 23 04/03/2023 BMP, serum or plasm a CI- 100 Not Available Main - Ins [address], [address] [place] [address] 04/03/2023 14:21:27 04/03/20 23 04/03/2023 BMP, serum or plasm a CRE 0.8 Not Available Main - Ins [address], [address] [place] [address] 04/03/2023 14:21:27 04/03/20 23 04/03/2023 BMP, serum or plasm a GLU 259 Not Available Main - Ins [address], [address] [place] [address] 04/03/2023 14:21:27 04/03/20 23 04/03/2023 BMP, serum or plasm a K+ 3.2 Not Available Main - Ins [address], [address] [place] [address] 04/03/2023 14:21:27 04/03/20 23 04/03/2023 BMP, serum or plasm a Na+ 137 Not Available Main - Ins [address], [address] [place] [address] 04/03/2023 14:21:27 04/03/20 23 04/03/2023 BMP, serum or plasm a tCO2 24 Not Available Main - Ins [address], [address] [place] [address] 04/03/2023 14:21:27 04/03/20 23 04/03/2023 urina lysis , dipst ick Leukocytes neg Not Available [facility] - [address], [address] [place] [address] 04/03/2023 14:21:32 04/03/20 23 04/03/2023 urina lysis , dipst ick Nitrite negati ve Not Available Main - Inst [address], [address] 04/03/2023 14:21:32 04/03/20 23 04/03/2023 urina lysis , dipst ick Urobilinogen neg Not Available Main - Insted [address] [place] [address], [address] 04/03/2023 14:21:32 04/03/20 23 04/03/2023 urina lysis , dipst ick Protein neg Not Available Main - Ins [address], [address] 04/03/2023 14:21:32 04/03/20 23 04/03/2023 urina lysis , dipst ick pH 6 Not Available Main - Ins [address], [address] 04/03/2023 14:21:32 04/03/20 23 04/03/2023 urina lysis , dipst ick Blood neg Not Available Main - Ins [address], [address] 04/03/2023 14:21:32 04/03/20 23 04/03/2023 urina lysis , dipst ick Specific Goehner 1.005 Not Available Main - Inst[facility] [address] [place] [address], [address] 04/03/2023 14:21:32 04/03/20 23 04/03/2023 urina lysis , dipst ick Ketone neg Not Available Main - Ins [address], [address] 04/03/2023 14:21:32 04/03/20 23 04/03/2023 urina lysis , dipst ick Bilirubin neg Not Available Main - I nsted [address] [place] [address], [address] 04/03/2023 14:21:32 04/03/20 23 04/03/2023 urina lysis , dipst ick Glucose neg Not Available Main - Ins [address], [address] 04/03/2023 14:21:32 04/03/20 23 04/03/2023 urina lysis , dipst ick Appearance clear they were both Not Available Main - Inst ed [address] [place] [address], [address] 04/03/2023 14:21:32 04/03/20 23 04/03/2023 urina lysis , dipst ick Color yellow Not Available Main - Ins go[facility]ind [address] [place] [address], [address] 04/03/2023 14:21:32 04/03/20 23 04/03/2023 rapid SARS CoV 2 Ag, QL IA, respi rator y speci men rapid SARS CoV 2 Ag, QL IA, respiratory specimen positi ve Not Available Main - Inst ed [address] [place] [address], [address] 04/03/2023 14:19:58 Result Notes None recorded. Medical [...] Not available Not available Not available 04/03/2023 44867 8001 SNOMED Not Available [facility] - production 4 03:57:53 3697 Topamax medicatio n Not available Not available Not available 04/03/2023 16870 3 RxNorm Esther Weston MD [address] [place] [address],[address], [place], [address], [employer] 3 14:18:48 3698 Imitrex medicatio n Not available Not available Not available 04/03/2023 09067 3 RxNorm Esther Weston MD [address] [place] [address],[address], [place], [address], [employer] 3 14:18:55 Medications Name Sig Start Date [...] Not Available Not Available No t Available Perf[employer]ia MedicalTouch Ultra Test strips USE DIRECTED TO TEST [...] Available No t Available FreeStyle Jt 2 [place] USE DIRECTED EVERY 8 HOURS active Not [...] Body temperature Respiratory rate Heart rate Systolic And Diastolic Provider Name and Address Organization Details Last Updated DateTime 4 97 % 97 % 98.5 [degF] 16 /min 86 /min 132/84 mm[Hg] Not Available [employer] 4 14:22:20 Date Recorded Respiratory rate Oxygen saturation Oxygen saturation in Arterial blood by Pulse oximetry Heart rate Body temperature Systolic And Diastolic Provider Name and Address Organization Details Last Updated DateTime 3 18 /min 97 % 97 % 95 /min 97.2 [degF] 136/78 mm[Hg] Not Available [employer] 3 16:51:43 Date Recorded Body temperature Oxygen saturation Oxygen saturation in Arterial blood by Pulse oximetry Body weight Respiratory rate Body height Heart rate Systolic And Diastolic Provider Name and Address Organization Details Last Updated DateTime 3 98.1 [degF] 96 % 96 % 98537.4 g 18 /min 152.4 cm 88 /min 114/82 mm[Hg] Not Available [employer] 3 13:28:41 Date Recorded Body height Body mass index (BMI) Body weight Provider Name and Address Organization Details Last Updated DateTime 04/03/2023 152.4 cm 39.1 kg/m2 95946.47 g Esther Weston MD [address] [facility],[address], [place], [address], [place] - [employer] 04/03/2023 14:35:10 Date Recorded Oxygen saturation Oxygen saturation in Arterial blood by Pulse oximetry Body temperature Respiratory rate Heart rate Systolic And Diastolic Provider Name and Address Organization Details Last Updated DateTime 3 95 % 95 % 100.5 [degF] 16 /min 93 /min 128/76 mm[Hg] Not Available [employer] 3 13:52:12 Social History None recorded. Functional Status None recorded. Mental Status None recorded. Family History Nothing Reported. Medical History No medical history recorded. Gynecological HistoryNo gynecological history recorded. Obstetrics History GPAL:G 0 P 0 0 0 0 Past Encounters Encounter ID Performer Location Encounter Start Date Encounter Closed Date Diagnosis/Indication Diagnosis SNOMED-CT Code Diagnosis ICD10 Code Diagnosis Note [id number] RADHA SHIELDS MD Main - [address] [address] 04/01/2023 16:51:41 04/02/2023 14:54:05 Hyperglycemia 43990111 R73.9 Evaluation in the field was performed by my fur plucker colleague, as noted above, I provided real-time [...] in the EDPt agrees to go to [facility] ED for further management of her [...] 1 L LR ) to prevent HHS [id number] Tamie Bridges MD Main - [address] [address] 04/02/2023 13:28:36 04/02/2023 15:00:10 Hyperglycemia 52042335 R73.9 53 year old female being evaluated [...] assessment and plan as documented by the fur plucker. I provided real-time medical direction for this encounter and was immediatel y available to provide additional phone-base d assistance as needed. [id number] Esther Weston MD Main - [address] [address] 04/03/2023 13:52:09 04/03/2023 22:25:35 Hypokalemia 44518202 E87.6 BS 259 she says is her baseline midday-eder pennington is feeling better-the hypokalemi a is normal as the blood sugar decreases- we will place her on supplement ation for the next 5 days (verified her pharmacy is [facility])-anatoliy adams is not spilling glucose or ketones-ad vised to continue her usual medication / f/u wit pcp COVID-19 915153017 U07.1 Advised to continue to rest/ stay [...] take tylenol 4 xper day as needed [id number] Oneida Casper MD Main - instED [address] [place] [phone] 10/02/2023 14:22:17 10/03/2023 11:26:47 Headache 18521033 R51.9 Health Concerns Section Related Observation LastModified by Organization Allysontamy keon LastModified Time None Recorded Concern Status LastModified by Organization Details LastModified Time None Recorded Advance Directives Directive None Recorded Payers Insurance Date Sequence Insurance Name Policy Number Policy Chin Covered Member ID Chin Member ID Guarantor Name 10/03/[address] [facility] - DOS ON OR AFTER 2022 - DUAL ELIGIBLE - CARE HOME OPTIONS AND ONE CARE (MEDICARE REPLACEMENT/ADV ANTAGE - HMO) Ramona Correaa [id number] [facility] Notes Date Note Type Note Provider Name and Address Organization Details Recorded Time 04/01/2023 text/html ROS as noted in the HPI HPI: Call to Ramonatd Correaa. Reports having ASHWIN sx on 03/24/23. Pt [...] ................... ................... ................... ................... ................... ................... ........ Machine Ii Engraver Note From Davidson Baptiste: Dispatched for the female republican experiencing flu-like symptoms, Covid-19 positive as of 03/24/23. Encountered patient supine and conscious in bed with family present, family presents a positive Covid-19 at-home test which reads positive; family expresses the test was performed just prior to [facility] contact. During exam, patient disclosed that she is an insulin dependent diabetic and has not taken her insulin since receiving the first positive test result back on 03/24/23. Patient presents personal glucometer device that reads 'Hi'. [facility] consulted for treatment plan. Skin warm, dry and of appropriate color for ethnicity. Head and neck free of trauma and edema. PERRL. -JVD. Breath sounds present, clear and equal bilaterally. Abdomen soft, non-tender and non-distended. Extremities free of trauma and edema. 4 lead EKG exhibits a sinus rhythm with no present ectopy. 20G IV established in left forearm; BGL Hi. Per [facility] I-stat performed and exhibited a glucose of over 700 mg/DL and a K+ of 3.4. [facility] ordered for patient to self administered 20units of her Tresiba sq. 1L lactated ringers administered via bolus. 40 mEq PO K+ administered. Patient to be transported to [facility] ED for further work-up. [facility] 401 provided transport, this proposal lead writer accompanied patient to [facility]. Patient monitored for change in status while en route to [facility], with none noted; remained alert and oriented throughout contact. ................... ................... ................... ................... ................... ................... ................... ........ Disposition: Brian RADHA SHIELDS MD [address] [facility],[address], [place], [address], [employer] 04/01/2023 19:20:47 04/02/2023 text/html HPI: Hx: Migraines. Patient today with continued elevated BG 450 via Fingerstick. Seen in [facility] ED last night declined admission. Restarted [...] ................... ................... ................... ................... ................... ................... ........ Machine Ii Engraver Note From Herman Navarro: Upon arrival, pt [...] giving herself 4 neb treatments a day. [facility] contacted and pt was administered 40mg potassium oral and was advised to administer a one time dose of 10 units of her insulin in addition to the insulin she is taking per day. Pt told to contact PCP in the morning. Machine Ii Engraver Allergies: Aspirin, Penicillin ................... ................... ................... ................... ................... ................... ................... ........ Disposition: Fulfilled Tamie Bridges MD [address] [place] [address],[address], [place], [address], [employer] 04/02/2023 14:11:02 04/03/2023 text/html ROS as noted in the HPI CRC Nursing Assessment: Reason For Request: Follow up visit from 04/02 Chief Complaints: Diabetes Related, Electrolyte Imbalance, Medication Related PMH: COPD/Asthma, Diabetes Allergies: Aspirin, Penicillin Comments: [facility] Remarks 53 year old female with DM2, [...] elevated BG 450 via Fingerstick. 04/01 in [facility] ED last night declined admission. Restarted [...] 40 mEq of potassium and sent to [facility]. She reports she was given 10 [...] ................... ................... ................... ................... ................... ................... ........... Machine Ii Engraver Note From Davidson Baptiste: Dispatched to the call address for the female with diabetic issue. Pt was seen on Saturday by this fur plucker. Pt was found to be hyperglycemic (>700). Pt was given 1L LR, 40mEq of potassium and sent to the ED. Pt left AMA when advised to be admitted to the hospital. Pt was seen yesterday by a different fur plucker and given more potassium. Pt states today [...] ................... ........ Disposition: Fulfilled Esther Weston MD [address] [place] [address],[address], [place], [address], [employer] 04/03/2023 14:42:14 10/02/2023 text/html HPI: HX: ETOH abuse in remission. NO history of seizure.Patient called to report a seizure as witnessed by her this morning at 730am. No details given. Hung up on Interprter x 3 agreed to home CCA visit.DEclined 911 ED x 3. ................... ................... ................... ................... ................... ................... ................... ........ [facility] Nurse Triage Notes (Rosa Isela Hsieh): Comments: HPI reviewed, patient called w/ Cyber Security Engineer. Rat Exterminator verified the member's name//address and phone number. [...] reports this has never happened before. This proposal lead writer strongly encouraged member to present to the emergency room for further work up. Patient declined going to the ED or calling 911 multiple times. Pt reported she is holding off on going (to the ED) and if it comes to the point of needing help she will get it. This proposal lead writer explained to member that [facility] would not be able to properly [...] migraines, [facility].Education provided on the response time and the member was advised to monitor reported s/s and seek emergency treatment if needed. Machine Ii Engraver POC Test Results from Moshe Grewal Blood Glucose Measurement (1) [11:37] Blood Glucose: 221 mg/dL ................... ................... ................... ................... ................... ................... ................... ........ Machine Ii Engraver Note From Moshe Grewal: Dispatched to the [...] after to inform them of the event. [facility] contacted and informed and noted if the pt. did not want to be seen in the ER to just make sure she called if conditions worsened. all times are approx.report completed by henrry grewal. ................... ................... ................... ................... ................... ................... ................... ........ Disposition: Brian Casper MD [address] [facility], [place], [address], [place] [employer] 10/02/2023 14:36:43 OBGyn Episode No OBEpisode recorded.
--- OUTSIDE RECORDS SUMMARY | 2024-12-23 12:41 | XMS_ITS | Clinical Summary ---
Author Organization [facility] Address [address] [place] [address] Phone Care Team Providers Care Machine Icer Name Role Phone Isabel Lewis DO Primary Care Provider [phone] Allergies Active Allergy Reactions Criticality Noted Date [...] 01/29/2022, 11/03/2020, Additional history exists Depression Screening 06/03/2024 Diabetes: Annual Urine Albumin-Creatinine Ratio (uACR) 06/22/2024 Diabetes: Blood Sugar Control Test (HGBA1C) 12/03/2024 06/05/2024 Influenza Vaccine (#1) 2025 , 02/22/2023, 07/11/2022, Additional history exists Diabetes: Annual GFR (Glomerular Filtration Rate) 06/22/2025 06/22/2024, 06/18/2024 Cervical Cancer Screening: Pap Smear 02/15/2026 02/15/2023 Cholesterol Screening (Lipid Panel) 10/11/2027 10/10/2022 HIV Screening Completed 01/18/2020 Zoster Vaccines Completed 03/08/2023, 10/10/2022 Pneumococcal Vaccine: 50+ Years Completed 02/28/2024, 10/22/2018, [...] [facility] Comment:Calculation based on the Chronic [...] MD LAB BLOOD ORDERABLES Shilpi cheek Result [facility] [address] [place] [address], from Last 3 Months or Most Recently Relevant to Health Maintenance Insurance [facility] MEDICARE Member Subscriber Plan / Payer (Ef fective 2024-Present) Name:Ramona Suarez Relation to Subscriber:Self Name:Ramona Suarez Payer ID:[id number] Group ID:Not on file Type:Not on file Address: [place] [address] [address] [id number] Care Teams Machine Icer Relationship Specialty Start Date End Date Isabel Lewis DO [address] [place] [address] PCP - General Family Medicine 06/22/24
--- OUTSIDE RECORDS SUMMARY | 2024-12-23 12:41 | XMS_ITS | Encounter Summary ---
Author Organization [employer] Address [address] [facility] [address] [place] [address] Care Team Providers Care Cabin Worker Name Role Phone Isabel Lewis DO Primary Care Provider [phone] Marti Elder PharmD Unavailable [phone] Dimitris Arambula SUPERVISOR MACHINE WORKERS Unavailable Unavailable Reason for Visit * Reason Comments Med Refill Encounter Details Date Type Department Care Team (Late st Contact Info) Description 03/04/2024 Refill [facility] [address] [place], [place] [phone] Isabel Lewis DO [address] [place], [place] [phone] Social History Tobacco Use Types Packs/Day Years [...] as of this encounter Plan of Treatment Not on file documented as of this encounter Goals Goal [...] documented as of this encounter Care Teams Cabin Worker Relationship Specialty Start Date End Date Isabel Lewis DO [address] [place], [place] [phone] PCP - General Family Medicine 06/03/18 Marti Elder PharmD [address] [place], [place] [phone] Pharmacist Internal Medicine 02/22/23 Dimitris Arambula FNP [address] [place] [address] Nurse Practitioner Family Medicine 04/24/23 documented as of this encounter
[2024-12-23 12:56] VITALS: BP 136/83; PULSE 84; RESP 18; TEMP 36.3; O2SAT 96
== END 2024-12-23 12:57 | disposition home or self-care (01) ==
PROVIDERS: Emergency Provider Emergency Medicine; PCP Family Medicine
DX: S29.8XXA Other specified injuries of thorax, initial encounter (principal); R07.81 Pleurodynia; F17.210 Nicotine dependence, cigarettes, uncomplicated; E11.9 Type 2 diabetes mellitus without complications; X58.XXXA Exposure to other specified factors, initial encounter; Y93.9 Activity, unspecified; Y92.9 Unspecified place or not applicable; Y99.8 Other external cause status; Z79.4 Long term (current) use of insulin; Z79.899 Other long term (current) drug therapy
CPT/HCPCS: 71101; 99282; 99283

== ENCOUNTER → 2024-12-23 11:33 | Outpatient (BNV) | payer OTHER, SELFPAY | PROVIDERS: Emergency Provider Emergency Medicine; PCP Family Medicine; Visit Provider Radiology Diagnostic Radiology | DX: R07.81 Pleurodynia (principal) | CPT/HCPCS: 71101 ==

== ENCOUNTER 2025-01-08 12:06 | Outpatient (AMB) | payer OTHER, SELFPAY ==
--- OUTSIDE RECORDS SUMMARY | 2025-01-08 12:08 | XMS_ITS | Encounter Summary ---
Author Organization [employer] Address [address] [facility] [address] [place] [address] Care Team Providers Care Canvas Goods Maker Name Role Phone Isabel Lewis DO Primary Care Provider [phone] Marti Elder PharmD Unavailable [phone] Dimitris Arambula CERAMIC TILE MECHANIC Unavailable Unavailable Reason for Visit * Reason Comments Med Refill Encounter Details Date Type Department Care Team (Late st Contact Info) Description 03/04/2024 Refill [facility] [address] [place], [place] [phone] Isabel Lewis DO [address] [place], [place] [phone] Social History Tobacco Use Types Packs/Day Years [...] Care Team (Late st Contact Info) Description 02/02/2025 10:30 AM EDT Medication Management [facility] [address] [place] [address] Marti Elder PharmD [address] [place] [address] documented as of this encounter Goals Goal [...] documented as of this encounter Care Teams Canvas Goods Maker Relationship Specialty Start Date End Date Isabel Lewis DO [address] [place] [phone] PCP - General Family Medicine 06/03/18 Marti Elder PharmD [address] [place] [phone] Pharmacist Internal Medicine 02/22/23 Dimitris Arambula FNP [address] [place] [address] Nurse Practitioner Family Medicine 04/24/23 documented as of this encounter
--- OUTSIDE RECORDS SUMMARY | 2025-01-08 12:08 | XMS_ITS | Clinical Summary ---
Author Organization [facility] Address [address] [place] [address] Phone Care Team Providers Care Multicultural Manager Name Role Phone Isabel Lewis DO Primary Care Provider [phone] Allergies Active Allergy Reactions Criticality Noted Date [...] mmol/L LAB CHEMISTRY METHOD 06/22/2024 11:19 AM [facility] Potassium 3.3(L) 3.5 - 5.5 mmol/L LAB CHEMISTRY METHOD 06/22/2024 11:19 AM [facility] Chloride 96 96 - 110 mmol/L LAB CHEMISTRY METHOD 06/22/2024 11:19 AM [facility] CO2 30 21 - 32 mmol/L LAB CHEMISTRY METHOD 06/22/2024 11:19 AM [facility] Anion Gap 9 3 - 11 LAB CHEMISTRY METHOD 06/22/2024 11:19 AM [facility] Glucose 217(H) 70 - 100 mg/dL LAB CHEMISTRY METHOD 06/22/2024 11:19 AM [facility] BUN 13 5 - 25 mg/dL LAB CHEMISTRY METHOD 06/22/2024 11:19 AM [facility] Creatinine 1.17(H) 0.50 - 1.10 mg/dL LAB CHEMISTRY METHOD 06/22/2024 11:19 AM [facility] eGFR 55(L) >=60 mL/min/1. 73m2 LAB CHEMISTRY METHOD 06/22/2024 11:19 AM [facility] Comment:Calculation based on the Chronic Kidney Disease Epidemiology Collaboration (CKD-EPI) equation refit without adjustment for race. BUN/Creatinine Ratio 11.1 LAB CHEMISTRY METHOD 06/22/2024 11:19 AM [facility] Calcium 8.9 8.5 - 10.5 mg/dL LAB CHEMISTRY METHOD 06/22/2024 11:19 AM [facility] Blood Venous blood specimen / Unknown Venipuncture / Unknown 06/22/2024 9:48 AM EST 06/22/2024 10:55 AM EST us Alirio Maurice MD LAB BLOOD ORDERABLES Shilpi cheek Result [facility] ([facility] [address] [place] [address], from Last 3 Months or Most Recently Relevant to Health Maintenance Insurance [facility] MEDICARE Member Subscriber Plan / Payer (Ef fective 2024-Present) Name:Ramona Suarez Relation to Subscriber:Self Name:Ramona Suarez Payer ID:[id number] Group ID:Not on file Type:Not on file Address: [place] [address] [place] [place] [id number] Care Teams Multicultural Manager Relationship Specialty Start Date End Date Isabel Lewis DO [address] [place] [address] PCP - General Family Medicine 06/22/24
--- OUTSIDE RECORDS SUMMARY | 2025-01-08 12:09 | XMS_ITS | Patient Health Record ---
Author Organization [facility] Address [address] [place] [address] Care Team Providers Care Bundle Cutter Name Role Phone Isabel Lewis Primary Care Provider Unavaila ble Clinical, Operations Unavailable Unavailable Reason For Referral No Information Medications Medication SIG (Take, Route, Frequency, Duration) Notes Start Date End Date Status Symbicort 160-4.5 MCG/ACT 2 puffs Inhalation Twice a day Active glipiZIDE XL 10 [...] with food Orally Twice a day Active Albuterol Sulfate (2.5 MG/3ML) 0.083% 3 mL as needed Inhalation every 6 hrs Active Leflunomide 20 MG 1 tablet Orally Once a day Active Meclizine HCl 25 MG 1 tablet as needed Orally every 12 hrs Active Spironolactone 25 MG 1 tablet Orally Active Synjardy 12.5-500 MG 1 tablet with meals Orally Twice a day Active oxyBUTYnin Chloride ER 5 MG 1 tablet Orally Once a day Active Riboflavin 100 MG 1 tablet Orally Once a day Not-Taking Tresiba 100 UNIT/ML 72 units Subcutaneous twice a day Active NovoLOG FlexPen 100 UNIT/ML 55 units Subcutaneous twice a day Active Mounjaro 15 MG/0.5ML as directed Subcutaneous inject on Wednesdays Active Spiriva Respimat 2.5 MCG/ACT 2 puffs Inhalation Once a day Active Ventolin HFA 108 (90 Base) MCG/ACT 1 puff as needed Inhalation every 4 hrs Active Baclofen 5 MG 1 tablet as needed Orally Three times a day Active Gabapentin 300 MG 2 capsules Orally Three TImes a Day Active Furosemide 20 MG 1 tablet Orally Once a day Active Atorvastatin Calcium 10 MG 1 tablet Orally Once a day Active Trulicity 1.5 MG/0.5ML 0.5 ML Subcutaneous Once Weekly - on Saturday Not-Taking Amitriptyline HCl 10 MG 1 Tablet Orally Twice a Day Active Magnesium Oxide 400 MG 1 tablet as needed Orally Once a day Active metFORMIN HCl 500 MG 2 tablet with a meal Orally Twice a Day Not-Taking Vitamin D3 50 MCG (1999) 1 tablet Orally Once a day Active Melatonin 5 MG 1-2 tablets in the evening Orally Once a day Active Immunizations Vaccine Route Administration Date Status Comme nts [...] COVID-19 Vaccine IM Unknown 01/29/2022 Administ ered Problems Problem Type SNOMED Code ICD Code Onset Dates Problem Status W/U Status Risk Notes Problem Malaise (218964900) Other malais e (R53.81) Active confirmed Problem Urinary incontinence (035458065) Unspecified urinary incontinence (R32) Active confirmed Problem Weakness (15758934) Weakness (R53.1) Active con firmed Problem Hypertension (86261842) Hypertension (I10) Active confirmed Problem Chest pain (82482616) Chest pain, unspecified (R07.9) Active confirmed Problem Dizziness and giddiness (057291060) Dizziness and giddiness (R42) Active confirmed Problem Dizziness (617796620) Dizziness (R42) Active confirmed Problem Anxiety disorder (676347971) Anxiety disorder (F41.9) Active confirmed Problem Asthma (212302346) Asthma (J45.909) Active conf irmed Problem migraine (disorder) (89363231) Migraines (G43.909) Active confirmed Problem Heart failure (59504638) Heart failure, unspecified (I50.9) Active confirmed Problem COPD - Chronic obstructive pulmonary disease (32852872) COPD (chronic obstructive pulmonary disease) (J44.9) Active confirmed Problem Overweight (997755813) Overweight (E66.3) Active confirmed Problem Osteoarthritis (501127696) Osteoarthritis (M19.90) Active confirmed Problem Sleep apnea (34245937) Sleep apnea (G47.30) Active confirmed Problem Tachycardia (3429381) Tachycardia, unspecified (R00.0) Active confirmed Problem Arthralgia (50523081) Arthralgia (M25.50) Active confirmed Problem Posttraumatic stress disorder (31744111) Post traumatic stress disorder (F43.10) Active confirmed Problem Memory loss (96273972) Memory loss (R41.3) Active confirmed Problem Fatty liver (032537737) Fatty liver (K76.0) Active confirmed Problem Rheumatoid arthritis (35805977) Rheumatoid arthritis, unspecified (M06.9) Active confirmed Problem Rheumatoid arthritis (90660018) Rheumatoid arthritis (M06.9) Active confirmed Problem Type 2 diabetes mellitus (86667575) Type 2 diabetes mellitus (E11.9) Active confirmed Problem Cognitive impairment (359720313) Cognitive impairment (R41.89) Active confirmed Problem Sciatica (47999892) Lumbago with sciatica, left side (M54.42) Active confirmed Problem Fibromyalgia (612043978) Fibromyalgia (M79.7) Active confirmed Problem Recurrent major depression (19904045) Major depression, recurrent (F33.9) Active confirmed Problem Type I diabetes mellitus without complication (810274491) Type 1 diabetes mellitus without complications (E10.9) Active confirmed Problem Nuclear senile cataract (054139382) Age-related nuclear cataract, bilateral (H25.13) Active confirmed Problem Long QT syndrome (7429877) Long QT syndrome (I45.81) Active confirmed Problem Precordial pain (74318815) Precordial pain (R07.2) Active confirmed Problem Open angle with borderline findings, low risk, 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) Active confirmed Problem Dissection of aorta (814053499) Dissection of unspecified site of aorta (I71.00) Active confirmed Problem Electrocardiogram abnormal (032907978) Abnormal electrocardiogram [ECG] [EKG] (R94.31) Active confirmed Problem Gastroesophageal reflux disease without esophagitis (004910019) Gastroesophageal reflux disease without esophagitis (K21.9) Active confirmed Problem Chronic pain (74411624) Other chronic pain (G89.29) Active confirmed Problem Bipolar disorder (84325772) Bipolar affective disorder, remission status unspecified (F31.9) Active confirmed Problem Urinary incontinence (746942475) Urinary incontinence, unspecified type (R32) Active confirmed Problem Uncomplicated severe persistent asthma (331648632) Severe persistent asthma, unspecified whether complicated (J45.50) Active confirmed Problem Trichiasis (16654861) 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
--- NOTE | 2025-01-08 12:33 | A.OFFVIS_ITS ---
Vital Signs 01/08/25 12:34 Height 5 ft 3 in Weight 160 lb 7.944 oz BMI 28.4 BP 132/72 Blood Pressure Location Lt brachial Position Sitting Pulse 92 Pulse Source Pulse Oximeter Pulse Oximetry (%) 96 Oxygen Delivery Method Room Air Intake Visit Reasons: RA Intake Note: Patient last seen by Doctor Hai Hernandez on 05/06/24. Presents today for RA follow up and test results. Patient complains of bilateral knee and left shoulder pain today, [place] does not work for her, she ended up going to the ED. Allergies sumatriptan (From IMITREX) Allergy (Severe, Verified 01/08/25 12:37) SYNCOPE Penicillins (PENICILLINS) Allergy (Intermediate, Verified 01/08/25 12:37) SHORTNESS OF BREATH penicillin V Allergy (Unknown, Verified 01/08/25 12:37) swelling, rash, pruritis topiramate (From TOPAMAX) Adverse Reaction (Severe, Verified 01/08/25 12:37) OVERDOSED Medication List - Last Reconciled 01/08/25 by Joann Rangel MD albuterol sulfate 90 mcg/actuation (Ventolin HFA) 2 inhalations inhalation Q4H PRN albuterol sulfate 2.5 mg inhalation QID PRN amitriptyline 2 tabs PO BEDTIME aripiprazole 20 mg PO DAILY atorvastatin (Lipitor) 10 mg PO BEDTIME divalproex ER 500 mg PO BID duloxetine 60 mg PO DAILY empagliflozin-metformin 12.5-1,000 mg (Synjardy) 1 tab PO BID flash glucose sensor (FreeStyle Jt 2 Sensor kit) As directed gabapentin 600 mg PO TID insulin aspart U-100 (Novolog FlexPen U-100 Insulin aspart) See Protocol units subcut BIDAC insulin degludec (Tresiba FlexTouch U-200 insulin) 40 units (0.2 mL) subcut DAILY leflunomide 20 mg PO DAILY leg brace As directed :Use during day when active. DO not wear to bed magnesium oxide 400 mg PO DAILY meclizine 25 mg PO BID PRN melatonin 10 mg PO BEDTIME multivit-iron sulf-folic acid 15 mg iron- 400 mcg (Tab-A-Manjeet Multivitamin w- iron) 1 tab PO DAILY nicotine 14 mg transdermal DAILY omeprazole 40 mg PO BID@0630,1630 oxybutynin chloride ER 1 tab PO BEDTIME pen needle, diabetic (UltiCare Pen Needle) As directed polyethylene glycol 3350 17 grams PO DAILY PRN quetiapine 200 mg PO BEDTIME riboflavin (vitamin B2) 200 mg PO BID spironolactone 25 mg See Protocol PO DAILY tiotropium bromide 2.5 mcg/actuation (Spiriva Respimat) 2 puffs inhalation DAILY tirzepatide (Mounjaro) 12.5 mg subcut WE HPI Comments Details: Patient is a 54-year-old female with asthma, hyperlipidemia, diabetes, GERD, polyarticular osteoarthritis and seronegative rheumatoid arthritis here today for follow up Interval History: Patient last seen 05/06/[address] Hernandez - On Actemra 162mg every week and Leflunomide 20mg daily - Continued to complain of pain - Exam with synovitis - Change Actemra for SC to IV infusions Since then, got 1 dose of actemra 06/2024 but has not had subsequent doses - Had severe allergic reaction to the actemra infusion that she was hospitalized and the medication was discontinued - Also self discontinued leflunomide due to insurance issues Today, - Rheumatologic History: Seronegative RA Plaquenil: September 2016- December 2016- hallucinations Methotrexate: December 2016- September 2021- concern for ILD Sulfasalazine: May 2017- high disease activity sulfasalazine added to methotrexate- self stopped Enbrel: July 2017 -denied by insurance Humira: August 2017 added to methotrexate- stopped September 2018- active disease Enbrel: September 2018- September2019 active disease Xeljanz: September 2019-November 2020 Actemra: 05/2023, switched to infusions 05/2024. Stopped due to severe allergic reaction Leflunomide Current Rheumatology Medication(s): Actemra 4mg/kg IV every 4 weeks (discontinued) Leflunomide 20mg daily (self discontinued) PFSH Medical History Osteoarthritis (arthritis due to wear and tear of joints) Major depressive disorder PTSD (post-traumatic stress disorder) CAP (community acquired pneumonia) Fibromyalgia Asthma Chronic mixed headache syndrome Obstructive sleep apnea Diabetes Bipolar disorder Surgical History Hx of colonoscopy Hx of cholecystectomy H/O shoulder surgery Family History Mother Arthritis Asthma Diabetes Social History Household Members: Spouse Housing: Apartment Do you presently have visiting nurse or other home services: Yes Alcohol intake: former Patient Tobacco Use Status: Current everyday Tobacco user Tobacco use type: Cigarette Cigarettes Per Day: 12 Years Smoked: 45 service: No Review of Systems Const Details: Review of Systems Constitutional: Denies fever, chills, weight loss ENT: Denies vision changes, eye pain or eye redness, dental caries, dry mouth GI: Denies nausea, vomiting, diarrhea, abdominal pain, change in BM Pulm: Denies SOB, CÁRDENAS, hemoptysis, wheezing Cards: Denies chest pain, palpitations Skin: Denies Raynaud's, rash, nail changes, photosensitivity, FIELD CLERK: Denies headaches, weakness, paresthesias, recurrent falls MSK: as per HPI All other systems reviewed and are unremarkable except noted above Physical Exam Exam Exam: Vital signs reviewed Physical Examination CONSTITUITIONAL Patient alert and cooperative. Well appearing and in no apparent painful distress MSK Hands * Right Hand: Able to make a fist. No swelling but diffuse tenderness to palpation of the MCPs and PIPs. No deformities noted. * Left Hand: Able to make a fist. No swelling but diffuse tenderness to palpation of the MCPs and PIPs. No deformities noted. * Herbedens nodes noted bilaterally Wrists * Right Wrist: Full ROM. 70 degrees of wrist flexion, 80 degrees of wrist extension. No swelling but TTP * Left Wrist: Full ROM. 70 degrees of wrist flexion, 80 degrees of wrist extension. No swelling but TTP Elbows * Right Elbow: Full ROM. No swelling. TTP of elbow joint. No TTP of the medial and lateral epicondyles * Left Elbow: Full ROM. No swelling. TTP of elbow joint. No TTP of the medial and lateral epicondyles Shoulders * Right shoulder: Full ROM with pain at the extreme of range. No swelling noted. No TTP of the AC joint, subacromial bursa or posterior shoulder * Left shoulder: Full ROM with pain at the extreme of range. No swelling noted. No TTP of the AC joint, subacromial bursa or posterior shoulder Knees * Right knee: Full ROM. No swelling noted. TTP of the knee joint line and pes anserine bursa * Left knee: Full ROM. No swelling noted. TTP of the knee joint line and pes anserine bursa. Ankles * Right ankle: Good ankle dorsiflexion and plantar flexion. No swelling. No TTP of the ankle joint * Left ankle: Good ankle dorsiflexion and plantar flexion. No swelling. No TTP of the ankle joint Feet * Right foot: Positive squeeze test * Left foot: Positive squeeze test Tender points? * No tenderness to palpation of the bilateral trapezius, supraspinatus, anterior costochondral junctions, bilateral suboccipital muscle insertions SKIN No rashes Vital Signs: BMI result Body Mass Index 28.4 Results Reviewed Results Reviewed: Laboratory Tests 12/02/24 10:29 WBC 7.6 RBC 4.19 L Hgb 10.2 L Hct 33.4 L Plt Count 366 ESR 66 H Sodium 139 Potassium 3.7 Chloride 108 Carbon Dioxide 24 BUN 7 L Creatinine 0.87 AST 20 ALT 8 Alkaline Phosphatase 121 H C-Reactive Protein 2.37 H Laboratory Tests 07/23/24 11:28 Hepatitis A IgM Ab Nonreactive Hep Bs Antigen Negative Hep Bs Antibody NONREACTIVE Hep B Core Total Ab Nonreactive Hepatitis C Ab (EIA) Nonreactive TB Test (T-Spot) Com Negative Assessment & Plan Assessment & Plan (1) Seronegative rheumatoid arthritis: Comment: Plaquenil: September 2016- December 2016- hallucinations Methotrexate: December 2016- September 2021- concern for ILD Sulfasalazine: May 2017- high disease activity sulfasalazine added to methotrexate- self stopped Enbrel: July 2017 -denied by insurance Humira: August 2017 added to methotrexate- stopped September 2018- active disease Enbrel: September 2018- September2019 active disease Xeljanz: September 2019-November 2020 Actemra: 05/2023 - 06/2024. Flash pulmonary edema Code(s): M06.00 - Rheumatoid arthritis without rheumatoid factor, unspecified site Category: Medical Plan: #Seronegative Rheumatoid Arthritis Patient is a 54 y.o. female with seronegative RA here today for follow up. Currently in a flare of her disease based on elevated inflammatory markers and several tender joints on exam. Not on any medications. Discussed with patient that she is to reach out to the office if there are any issues Plan - Leflunomide 20mg daily - Prednisone Take 15mg for 10 days then 10mg for 10 days then 5mg for 10 days and stop - RTC 4 months to reeval efficacy - Labs before visit: CBC, CMP, ESR, CRP, Hepatitis panel and T spot (2) Encounter for monitoring leflunomide therapy: Code(s): Z51.81 - Encounter for therapeutic drug level monitoring; Z79.69 - intermediate designer (current) use of other immunomodulators and immunosuppressants Plan: #Long-term leflunomide Discussed with patient the benefits and risks of leflunomide for managing the rheumatic condition Benefits include: - Reduced pain, maintenance of remission and reduction of flares Risks include: - GI upset especially diarrhea, skin rash, cytopenias, hepatotoxicity, weight loss, neuropathy Leflunomide is highly teratogenic. Has a very long half-life. Needs cholestyramine washout if there is desire for Initiation: CBC, BMP, LFTs, hepatitis-B and C serologies every 2-4 weeks for 3 months Monitoring: CBC, BMP, LFTs, hepatitis B and C serologies Plan I spent 40 minutes reviewing the record and labs, taking a history, examining the patient, discussing the treatment plan, ordering diagnostic work up and documenting in the medical record Medications: New prednisone Take 3 tablets for 10 days then 2 tablets for 10 days then 1 tablet for 10 days 5 mg PO DIRECTED 60 tabs 0RF M06.00 - Rheumatoid arthritis without rheumatoid factor, unspecified site Refilled leflunomide 20 mg PO DAILY 90 tabs 1RF M06.00 - Rheumatoid arthritis without rheumatoid factor, unspecified site Discontinued atorvastatin (Lipitor) Discontinued Reason: Change Referral Type 10 mg PO BEDTIME Coding Level of Care Code Est Pt Level 5 (13532) Complex EM visit Add On G2211 Diagnoses Seronegative rheumatoid arthritis M06.00 Encounter for monitoring leflunomide therapy Z51.81; Z79.69
[2025-01-08 12:34] VITALS: BP 132/72; PULSE 92; O2SAT 96; BMI 28.4
== END 2025-01-08 13:08 | disposition home or self-care (01) ==
LOC: HO.RHES 12:06
PROVIDERS: PCP Family Medicine; Visit Provider Student in an Organized Health Care Education/Training Program
DX: M06.09 Rheumatoid arthritis without rheumatoid factor, multiple sites (principal); Z51.81 Encounter for therapeutic drug level monitoring; Z79.69 Long term (current) use of other immunomodulators and immunosuppressants
CPT/HCPCS: 99215; G2211

== ENCOUNTER → 2025-01-08 12:06 | Outpatient (BNVA) | payer OTHER, SELFPAY | PROVIDERS: PCP Family Medicine; Visit Provider Student in an Organized Health Care Education/Training Program | DX: M06.09 Rheumatoid arthritis without rheumatoid factor, multiple sites (principal); Z51.81 Encounter for therapeutic drug level monitoring; Z79.69 Long term (current) use of other immunomodulators and immunosuppressants | CPT/HCPCS: 99212 ==